=== PATIENT | male | born 1945 | race Caucasian/White ===

== ENCOUNTER 2018-02-09 16:29 | Emergency (ER) | payer OTHER ==
[2018-02-09] MEDS ORDERED: LIDOCAINE VISCOUS 2% SOLN 15 ML UDC ONE (16:50)
[2018-02-09] MEDS ORDERED: MAGNE/ALUM HYDROXD 30 ML UCUP ONE (16:50)
[2018-02-09 17:19] LABS: Absolute Lymphocytes (CBC) 0.9 K/uL (0.7-4.9); Absolute Monocytes 0.5 K/uL (0.1-1.3); Absolute Neutrophil 2.6 K/uL (1.8-8.0); Basophils % 0.9 % (0-1.3); Eosinophils % 2.5 % (0-4.4); Hematocrit 37.7 % (39.6-49.0); Lymphocytes % 21.3 % (15.3-44.8); MCV 99.9 fL (80-100); MPV 10.1 fL (7.6-11.3); Monocytes % 11.9 % (3.3-12.3); RBC Red Blood Cell Count 3.78 M/uL (4.33-5.43)
[2018-02-09 17:28] LABS: Bicarbonate 27 mEq/L (21-31); Glucose Level 108 mg/dL (65-120); Potassium 3.8 mEq/L (3.6-5.0); Sodium Level 133 mEq/L (135-145)
[2018-02-09 17:32] LABS: ALT/SGPT 18 IU/L (10-60); AST/SGOT 22 IU/L (10-42); Albumin 3.4 g/dL (3.2-5.5); Alkaline Phosphatase 67 IU/L (42-121); BUN Blood Urea Nitrogen 17 mg/dL (6-20); Bilirubin Total < 0.2 mg/dL (0.3-1.2); Magnesium 2.2 mg/dL (1.8-2.5); Protein, Total 7.9 g/dL (6.0-8.3)
[2018-02-09 17:35] LABS: Protime INR 1.34
--- NOTE | 2018-02-09 18:03 | RAD REPORT ---
EXAM DESCRIPTION: RAD - Chest Single View - 02/09/2018 5:33 pm CLINICAL HISTORY: Lower chest pain, epigastric pain COMPARISON: November 2015 TECHNIQUE: AP portable chest image was obtained 1713 hours . FINDINGS: Lungs are clear. Heart and vasculature are normal. No measurable pleural effusion and no p neumothorax. No gross bony abnormality seen. No acute aortic findings suspected. IMPRESSION: No acute cardiopulmonary process. No significant interval change.
--- NOTE | 2018-02-09 18:07 | RAD REPORT ---
EXAM DESCRIPTION: CT - Abdomen Pelvis W Contrast - 02/09/2018 5:50 pm CLINICAL HISTORY: Right upper quadrant pain, epigastric pain COMPARISON: None. TECHNIQUE: Biphasic, helical CT imaging of the abdomen and pelvis was performed following 100 ml non -ionic IV contrast. Oral contrast was given. All CT scans are performed using dose optimization technique as appropriate and may include automated exposure control or mA/KV adjustment according to patient size. FINDINGS: No suspicious findings in the lung bases. No pericardial thickening or effusion. The liver, spleen, and pancreas show no suspicious findings. Gallbladder and biliary tree are also wi thout suspicious finding. Symmetric renal function is seen with no hydronephrosis or suspicious renal mass. No pyelonephritis o r acute renal parenchymal process. Contracted urinary bladder shows no suspicious finding. Prostate g land and seminal vesicles within normal limits. No adrenal abnormality. No gastric dilatation or gastric wall thickening. Mild mucosal level gastritis can be present an occu lt on CT imaging. No dilated small bowel loops. Distal small bowel loops are fluid-filled with questi onable enhancement of the galvez. No appendicitis findings. Moderate stool volume in the colon. No acu te colon process. There is prominent diverticulosis in the sigmoid but no diverticulitis. No free air, free fluid or inflammatory stranding. Numerous mesenteric lymph nodes are present and there is congested or edematous appearance to the mesenteric fat. No mass or bulky lymphadenopathy. Small fat filled inguinal hernia present. Disc and bony degenerative changes are present. No pathologic bone process. IMPRESSION: Mesenteric adenitis or nonspecific enteritis pattern. No bulky lymphadenopathy. No evidence for acute gallbladder, biliary tree or pancreatic disease. Stomach is within normal limit s.
--- NOTE | 2018-02-09 18:30 | ER ---
Nurse's Notes [facility] Name: Michael Grant Age: 72 yrs Sex: Male : 1945 Arrival Date: 02/09/2018 Time: 16:32 Bed 24 Private MD: Dior Do H Diagnosis: Mesenteric Adenitis Presentation: 02/09 16:36 Presenting complaint: Patient states: Epigastric pain for 3 days that is intermittent aj in nature. Transition of care: patient was not received from another setting of care. Onset of symptoms was February 07, 2018. Risk Assessment: Do you want to hurt yourself or someone else? Patient reports no desire to harm self or others. Care prior to arrival: None. 16:36 Method Of Arrival: Ambulatory aj 16:36 Acuity: LEIF 3 aj 17:14 Initial Sepsis Screen: Does the patient meet any 2 criteria? No. Patient's initial kr2 sepsis screen is negative. Does the patient have a suspected source of infection? No. Patient's initial sepsis screen is negative. Triage Assessment: 16:37 General: Appears in no apparent distress. comfortable, Behavior is calm, cooperative, aj appropriate for age. Pain: Complains of pain in epigastric area. Neuro: Level of Consciousness is awake, alert, obeys commands, Oriented to person, place, time, situation, Appropriate for age. Cardiovascular: Reports chest pain, Capillary refill < 3 seconds in bilateral fingers Patient's skin is warm and dry. Respiratory: Airway is patent Respiratory effort is even, unlabored, Respiratory pattern is regular, symmetrical. GI: Reports upper abdominal pain, epigastric pain. Derm: Skin is intact, is healthy with good turgor, Skin is pink, warm \T\ dry. normal. Historical: - Allergies: 16:37 No Known Allergies; aj - Home Meds: 16:37 aspirin 81 mg Oral chew 1 tab once daily [Active]; Plavix 75 mg Oral tab 1 tab once aj daily [Active]; Pravachol 40 mg Oral tab 1 tab once daily [Active]; Prevacid 30 mg Oral cpDR 1 cap once daily [Active]; Singulair 10 mg Oral tab 1 tab once daily [Active]; - PMHx: 16:37 Diabetes - NIDDM; GERD; Headaches; High Cholesterol; Myocardial infarction; aj - PSHx: 16:37 EGD; Heart stents; aj - Immunization history:: Adult Immunizations up to date. - Social history:: Smoking status: Patient/guardian denies using tobacco. - Ebola Screening: : No symptoms or risks identified at this time. Screenin:14 Abuse screen: Denies threats or abuse. Denies injuries from another. Nutritional kr2 screening: No deficits noted. Tuberculosis screening: No symptoms or risk factors identified. Fall Risk None identified. Assessment: 17:15 Pain: Pain does not radiate. Pain began 1 month ago. kr2 17:15 General: Appears in no apparent distress. comfortable, well groomed, well developed, kr2 well nourished, Behavior is calm, cooperative, appropriate for age. Neuro: Level of Consciousness is awake, alert, obeys commands, Oriented to person, place, time, situation, Appropriate for age. Cardiovascular: Capillary refill < 3 seconds in bilateral fingers Patient's skin is warm and dry. Cardiovascular: Heart tones S1 S2 Rhythm is sinus rhythm. Cardiovascular: Chest pain is described as mild, quality is burning, pressure, is located in anterior epigastric area substernal area episodes are continuous is aggravated by lying flat is alleviated by position. Respiratory: Airway is patent Respiratory effort is even, unlabored, Respiratory pattern is regular, symmetrical. GI: Abdomen is round non-distended, Bowel sounds present X 4 quads. Reports epigastric pain, indigestion, nausea. : No signs and/or symptoms were reported regarding the genitourinary system. EENT: Nares are clear Oral mucosa is moist. Derm: Skin is intact, is healthy with good turgor, Skin is pink, warm \T\ dry. Musculoskeletal: Circulation, motion, and sensation intact. 18:22 Reassessment: Patient appears in no apparent distress at this time. Patient and/or kr2 family updated on plan of care and expected duration. Pain level reassessed. Patient is alert, oriented x 3, equal unlabored respirations, skin warm/dry/pink. Patient states feeling better. Patient states symptoms have improved. Vital Signs: 16:37 BP 126 / 77; Pulse 64; Resp 19; Temp 100.3; Pulse Ox 98% on R/A; Weight 81.65 kg; aj Height 5 ft. 10 in. (177.80 cm); 17:18 BP 113 / 75; Pulse 73; Resp 17; Pulse Ox 98% on R/A; kr2 18:23 BP 120 / 81; Pulse 59; Resp 17; Pulse Ox 99% on R/A; kr2 16:37 Body Mass Index 25.83 (81.65 kg, 177.80 cm) aj Vitals: 17:18 Cardiac Rhythm Assessment Sinus rhythm. kr2 ED Course: 16:32 Patient arrived in ED. mr 16:32 Dior Do DO is Private Physician. mr 16:33 Angelo Lackey MD is Attending Physician. ps1 16:36 Triage completed. aj 16:37 Arm band placed on left wrist. Patient placed in an exam room. aj 16:42 Florence Valdez, MIKE is Primary Nurse. kr2 17:00 Patient has correct armband on for positive identification. Bed in low position. Call kr2 light in reach. Side rails up X 1. air sampling and monitoring on. Pulse ox on. NIBP on. Door closed. Head of bed elevated. 17:00 Inserted saline lock: 20 gauge in right antecubital area, using aseptic technique. kr2 Blood collected. 17:13 Patient maintains SpO2 saturation greater than 95% on room air. kr2 17:21 Radiology exam delayed due to lab results not completed at this time. (BUN/Creatinine). cw1 17:22 X-ray completed. Portable x-ray completed in exam room. Patient tolerated procedure jw2 well. 17:23 XRAY Chest (1 view) In Process Unspecified. EDMS 17:49 CT completed. Patient moved to CT via wheelchair. Patient moved back from CT. cw1 17:50 CT Abd/Pelvis - W/Contrast In Process Unspecified. EDMS 18:29 Dior Do DO is Referral Physician. ps1 18:54 No provider procedures requiring assistance completed. IV discontinued, intact, kr2 bleeding controlled, No redness/swelling at site. Pressure dressing applied. Administered Medications: 17:05 Drug: GI Cocktail without - (Maalox Suspension 30 ml, Lidocaine Liquid 2 % 15 kr2 ml) Route: PO; 18:22 Follow up: Response: No adverse reaction kr2 Outcome: 18:29 Discharge ordered by . ps1 18:54 Discharged to home ambulatory, with family. kr2 18:54 Condition: good 18:54 Discharge instructions given to patient, family, Instructed on discharge instructions, follow up and referral plans. medication usage, Demonstrated understanding of instructions, follow-up care, medications, Prescriptions given X 1. 18:55 Patient left the ED. kr2 Signatures: Dispatcher [employer] EDMS Chloe West, RN RN Dinora Kaufman mr Crawford, Crystal cw1 Tania Kelly jw2 Floernce Valdez RN RN kr2 Angelo Lackey MD MD ps1 Corrections: (The following items were deleted from the chart) 19:09 18:26 Right Eye With Lenses, 20/30, Left Eye With Lenses, 20/15, Both Eyes With Lenses, kr2 20/10, When read with R eye, blurred. Read with both eyes slightly blurred kr2
--- NOTE | 2018-02-09 18:30 | EDPHYS ---
Physician Documentation [facility] Name: Michael Grant Age: 72 yrs Sex: Male : 1945 Arrival Date: 02/09/2018 Time: 16:32 Bed 24 Private MD: Dior Do H ED Physician Angelo Lackey HPI: 02/09 16:49 This 72 yrs old Male presents to ER via Ambulatory with complaints of Chest ps1 Pain, Abdominal Pain. 16:49 pt with a history of GERD adn gastric ulcers. States that he has had epigastric pain ps1 and RUQ pain. Course is intermittent and fluctuating. States that he has had anorexia for the last couple of days but felt hungry today. Had a hamburger and then started having epigastric pain. Pain rated as moderate and worse with eating. He had a EGD and was told that he had a gastric ulcer. He states that he is now asymptomatic since coming to the ED. . Historical: - Allergies: 16:37 No Known Allergies; aj - Home Meds: 16:37 aspirin 81 mg Oral chew 1 tab once daily [Active]; Plavix 75 mg Oral tab 1 tab once aj daily [Active]; Pravachol 40 mg Oral tab 1 tab once daily [Active]; Prevacid 30 mg Oral cpDR 1 cap once daily [Active]; Singulair 10 mg Oral tab 1 tab once daily [Active]; - PMHx: 16:37 Diabetes - NIDDM; GERD; Headaches; High Cholesterol; Myocardial infarction; aj - PSHx: 16:37 EGD; Heart stents; aj - Immunization history:: Adult Immunizations up to date. - Social history:: Smoking status: Patient/guardian denies using tobacco. - Ebola Screening: : No symptoms or risks identified at this time. ROS: 16:49 Constitutional: Negative for fever, chills, and weight loss, Eyes: Negative for injury, ps1 pain, redness, and discharge, ENT: Negative for injury, pain, and discharge, Cardiovascular: Negative for chest pain, palpitations, and edema, Respiratory: Negative for shortness of breath, cough, wheezing, and pleuritic chest pain. 16:49 Back: Negative for injury and pain, MS/Extremity: Negative for injury and deformity, Skin: Negative for injury, rash, and discoloration, Neuro: Negative for headache, weakness, numbness, tingling, and seizure. 16:49 Abdomen/GI: Positive for anorexia, epigastric pain. Exam: 16:49 Constitutional: This is a well developed, well nourished patient who is awake, alert, ps1 and in no acute distress. Head/Face: Normocephalic, atraumatic. Eyes: Pupils equal round and reactive to light, extra-ocular motions intact. Lids and lashes normal. Conjunctiva and sclera are non-icteric and not injected. Neck: Trachea midline, no thyromegaly or masses palpated, and no cervical lymphadenopathy. Supple, full range of motion without nuchal rigidity, or vertebral point tenderness. No Meningismus. Chest/axilla: Normal chest wall appearance and motion. Nontender with no deformity. No lesions are appreciated. Cardiovascular: Regular rate and rhythm. No gallops, murmurs, or rubs. Normal PMI, no JVD. No pulse deficits. Respiratory: Lungs have equal breath sounds bilaterally, clear to auscultation and percussion. No rales, rhonchi or wheezes noted. No increased work of breathing, no retractions or nasal flaring. Skin: Warm, dry with normal turgor. Normal color with no rashes, no lesions, and no evidence of cellulitis. MS/ Extremity: Pulses equal, no cyanosis. Neurovascular intact. Full, normal range of motion. 16:49 Abdomen/GI: Inspection: abdomen appears normal, Bowel sounds: normal, Palpation: mild abdominal tenderness, in the epigastric area and right upper quadrant. Vital Signs: 16:37 BP 126 / 77; Pulse 64; Resp 19; Temp 100.3; Pulse Ox 98% on R/A; Weight 81.65 kg; aj Height 5 ft. 10 in. (177.80 cm); 17:18 BP 113 / 75; Pulse 73; Resp 17; Pulse Ox 98% on R/A; kr2 18:23 BP 120 / 81; Pulse 59; Resp 17; Pulse Ox 99% on R/A; kr2 16:37 Body Mass Index 25.83 (81.65 kg, 177.80 cm) aj MDM: 16:49 Patient medically screened. ps1 16:54 Data reviewed: vital signs, nurses notes, lab test result(s), EKG, radiologic studies. ps1 ED course: labs and imaging c/w mesenteric adenitis. Neg troponin and EKG does not demonstrate acute changes. Home with NSAIDS. . 02/09 16:35 Order name: BNP; Complete Time: 18:12 ps1 02/09 16:35 Order name: CBC with Diff; Complete Time: 17:35 ps1 02/09 16:35 Order name: Magnesium; Complete Time: 17:35 ps1 02/09 16:35 Order name: PT-INR; Complete Time: 18:12 ps1 02/09 16:35 Order name: Ptt, Activated; Complete Time: 18:12 ps1 02/09 16:35 Order name: Troponin (emerg Dept Use Only); Complete Time: 18:12 ps1 02/09 16:35 Order name: XRAY Chest (1 view); Complete Time: 18:12 ps1 02/09 16:35 Order name: EKG; Complete Time: 16:35 ps1 02/09 16:35 Order name: Cardiac monitoring; Complete Time: 17:12 ps1 02/09 16:35 Order name: EKG - Nurse/Tech; Complete Time: 17:12 ps1 02/09 16:35 Order name: CMP; Complete Time: 17:35 ps1 02/09 16:57 Order name: CT Abd/Pelvis - W/Contrast; Complete Time: 18:12 ps1 02/09 16:35 Order name: IV Saline Lock; Complete Time: 17:12 ps1 02/09 16:35 Order name: Labs collected and sent; Complete Time: 17:12 ps1 02/09 16:35 Order name: O2 Per Protocol; Complete Time: 17:12 ps1 02/09 16:35 Order name: O2 Sat Monitoring; Complete Time: 17:12 ps1 EC:54 Rate is 57 beats/min. Rhythm is regular. QRS [place] is Normal. [place] interval is normal. QRS ps1 interval is normal. QT interval is normal. No Q waves. T waves are Normal. Clinical impression: LAFB, sinus bradycardia. . Interpreted by me. Administered Medications: 17:05 Drug: GI Cocktail without - (Maalox Suspension 30 ml, Lidocaine Liquid 2 % 15 kr2 ml) Route: PO; 18:22 Follow up: Response: No adverse reaction kr2 Disposition: 02/09/18 18:29 Discharged to Home. Impression: Mesenteric Adenitis. - Condition is Stable. - Discharge Instructions: Lymphadenopathy. - Prescriptions for Medrol (Grady) 4 mg Oral Tablets, Dose Pack - take 1 tablet by ORAL route as directed - follow package instructions; 1 packet. - Medication Reconciliation Form, Thank You Letter, Antibiotic Education, Prescription Opioid Use form. - Follow up: Dior Do DO; When: As needed; Reason: Recheck today's complaints, Continuance of care, Re-evaluation by your physician. Follow up: Emergency Department; When: As needed; Reason: If symptoms return, Trouble breathing, Worsening of condition. - Problem is an ongoing problem. - Symptoms have improved. Signatures: Dispatcher [employer] EDMS Chloe West RN RN aj Florence Valdez RN RN kr2 Angelo Lackey MD MD ps1 Corrections: (The following items were deleted from the chart) 18:54 16:35 Urine Dipstick-Ancillary ordered. ps1 kr2 18:55 18:29 02/09/2018 18:29 Discharged to Home. Impression: Mesenteric Adenitis. Condition kr2 is Stable. Forms are Medication Reconciliation Form, Thank You Letter, Antibiotic Education, Prescription Opioid Use. Follow up: Dior Do; When: As needed; Reason: Recheck today's complaints, Continuance of care, Re-evaluation by your physician. Follow up: Emergency Department; When: As needed; Reason: If symptoms return, Trouble breathing, Worsening of condition. Problem is an ongoing problem. Symptoms have improved. ps1
[2018-02-09 19:00] VITALS: TEMP 100.3
[2018-02-09 19:02] VITALS: BP 120/81; O2SAT 99
--- NOTE | 2018-02-10 12:46 | EKG ---
Test Date: 2018-02-09 Test Time: 16:54:48 [employer] Specialist: SCOT MEASUREMENT RESULTS: Intervals: Rate: 57 MI: 140 QRSD: 104 QT: 432 QTc: 420 [place]: P: 31 MI: 140 QRS: -67 T: 63 INTERPRETIVE STATEMENTS: Sinus bradycardia Left anterior fascicular block Cannot rule out Anterior infarct, age undetermined Abnormal ECG Compared to ECG 11/30/2015 02:12:58 Myocardial infarct finding now present Electronically Signed On 02-10-18 12:43:44 CDT by Vasquez Keating
== END 2018-02-09 18:55 | disposition home or self-care (01) ==
LOC: ER 16:29
DX: I88.0 Nonspecific mesenteric lymphadenitis (principal); K21.9 Gastro-esophageal reflux disease without esophagitis; E11.9 Type 2 diabetes mellitus without complications; E78.00 Pure hypercholesterolemia, unspecified; Z95.818 Presence of other cardiac implants and grafts; Z79.01 Long term (current) use of anticoagulants; Z79.82 Long term (current) use of aspirin
CPT/HCPCS: 36415; 71045; 74177; 80053; 83735; 83880; 84484; 85025; 85610; 85730; 93005; 99285; Q9967

== ENCOUNTER 2018-10-24 15:42 | Emergency (ER) | payer OTHER ==
--- NOTE | 2018-10-24 18:57 | RAD REPORT ---
EXAM DESCRIPTION: CT - Head Brain Wo Cont - 10/24/2018 6:35 pm CLINICAL HISTORY: Headache for 4 days COMPARISON: None. TECHNIQUE: Axial 5 mm thick images of the head were obtained without IV contrast. All CT scans are performed using dose optimization technique as appropriate and may include automated exposure control or mA/KV adjustment according to patient size. FINDINGS: No intracranial hemorrhage, mass, edema or shift of mid-line structures. No acute cortical based infarction. Underlying atrophy and chronic ischemic changes are present. No abnormal extra-axi al fluid collections. Ventricles are in proportion to volume loss. Arterial tree calcifications are p resent. Mastoid air cells and visualized portions of the paranasal sinuses are clear. No acute bony findings. IMPRESSION: Atrophy and chronic ischemic change with no acute intracranial finding.
[2018-10-24 19:17] LABS: Absolute Lymphocytes (CBC) 1.4 K/uL (0.7-4.9); Absolute Monocytes 0.4 K/uL (0.1-1.3); Absolute Neutrophil 4.1 K/uL (1.8-8.0); Basophils % 0.6 % (0-1.3); Eosinophils % 1.3 % (0-4.4); Hematocrit 35.5 % (39.6-49.0); Lymphocytes % 22.6 % (15.3-44.8); MPV 9.7 fL (7.6-11.3); Monocytes % 7.3 % (3.3-12.3); Potassium 4.5 mmol/L (3.5-5.1); RBC Red Blood Cell Count 3.41 M/uL (4.33-5.43)
[2018-10-24] MEDS ORDERED: ACETAMINOPHEN 325 MG TABLET ONE (20:22)
--- NOTE | 2018-10-24 20:40 | ER ---
Nurse's Notes [facility] Name: Michael Grant Age: 73 yrs Sex: Male : 1945 Arrival Date: 10/24/2018 Time: 15:45 Bed 30 Private MD: Dior Do H Diagnosis: Headache Presentation: 10/24 15:51 Presenting complaint: Patient states: had a tooth extracted on Saturday and has had sv headaches before the extraction but now the headache is worse than normal, throbbing. Reports headache first started in the occipital region and now has top of head and left parietal area. Transition of care: patient was not received from another setting of care. Onset of symptoms was October 2018. Care prior to arrival: None. 15:51 Method Of Arrival: Ambulatory sv 15:51 Acuity: LEIF 3 sv 18:08 Risk Assessment: Do you want to hurt yourself or someone else? Patient reports no mg2 desire to harm self or others. Initial Sepsis Screen: Does the patient meet any 2 criteria? No. Patient's initial sepsis screen is negative. Does the patient have a suspected source of infection? No. Patient's initial sepsis screen is negative. Triage Assessment: 15:56 Headache History: The patient has had previous headaches and this one is more severe sv than previous episodes. General: Appears in no apparent distress. uncomfortable, Behavior is calm, cooperative, appropriate for age. Pain: Complains of pain in top of head, left parietal area, right parietal area, occipital area and base of the skull Pain currently is 5 out of 10 on a pain scale. Neuro: Level of Consciousness is awake, alert, obeys commands, Oriented to person, place, time, situation, Gait is steady. Respiratory: Respiratory effort is even, unlabored, Respiratory pattern is regular, symmetrical. Derm: Skin is pink, warm \T\ dry. 18:57 Pain: Also complains of no other associated symptoms. mg2 Historical: - Allergies: 15:52 No Known Allergies; sv - Home Meds: 18:11 aspirin 81 mg Oral chew 1 tab once daily [Active]; Plavix 75 mg Oral tab 1 tab once mg2 daily [Active]; Pravachol 40 mg Oral tab 1 tab once daily [Active]; Prevacid 30 mg Oral cpDR 1 cap once daily [Active]; Singulair 10 mg Oral tab 1 tab once daily [Active]; - PMHx: 15:52 Diabetes - NIDDM; GERD; Headaches; High Cholesterol; Myocardial infarction; Rheumatoid sv Arthritis; - PSHx: 15:52 EGD; Heart stents; sv - Immunization history:: Flu vaccine status is unknown. - Social history:: Smoking status: unknown. - Ebola Screening: : No symptoms or risks identified at this time. Screenin:06 Abuse screen: Denies threats or abuse. Denies injuries from another. Nutritional mg2 screening: No deficits noted. Tuberculosis screening: No symptoms or risk factors identified. Fall Risk None identified. Assessment: 18:07 General: Appears in no apparent distress. comfortable, Behavior is calm, cooperative. mg2 Pain: Complains of pain in head Pain does not radiate. Pain currently is 5 out of 10 on a pain scale. Quality of pain is described as aching, Pain began gradually, 2-3 days ago. Is intermittent, Alleviated by medications. Neuro: Level of Consciousness is awake, alert, obeys commands, Oriented to person, place, time, situation, Reports headache. Cardiovascular: Capillary refill < 3 seconds Patient's skin is warm and dry. Respiratory: Airway is patent Respiratory effort is even, unlabored, Respiratory pattern is regular, symmetrical. GI: No signs and/or symptoms were reported involving the gastrointestinal system. : No signs and/or symptoms were reported regarding the genitourinary system. EENT: No signs and/or symptoms were reported regarding the EENT system. Derm: Skin is intact, is healthy with good turgor, Skin is pink, warm \T\ dry. normal. Musculoskeletal: Circulation, motion, and sensation intact. Capillary refill < 3 seconds. 19:18 Reassessment: Patient appears in no apparent distress at this time. Patient and/or mg2 family updated on plan of care and expected duration. Pain level reassessed. Patient is alert, oriented x 3, equal unlabored respirations, skin warm/dry/pink. Vital Signs: 15:52 BP 131 / 82; Pulse 59; Resp 18; Temp 97.6; Pulse Ox 100% ; Weight 79.38 kg; Height 5 sv ft. 10 in. (177.80 cm); Pain 5/10; 18:12 BP 123 / 77; Resp 18; Pain 5/10; mg2 21:03 BP 130 / 78; Pulse 70; Resp 18; Pulse Ox 100% on R/A; Pain 0/10; mg2 15:52 Body Mass Index 25.11 (79.38 kg, 177.80 cm) sv ED Course: 15:45 Patient arrived in ED. sb2 15:45 Dior Do DO is Private Physician. sb2 15:52 Triage completed. sv 15:55 Arm band placed on Patient placed in waiting room, Patient notified of wait time. sv 17:56 Stalin Noland, RN is Primary Nurse. mg2 18:07 No provider procedures requiring assistance completed. mg2 18:09 Patient has correct armband on for positive identification. Bed in low position. NIBP mg2 on. Door closed. 18:11 Kevin Hu PA is PHCP. [facility] 18:11 Merrill Fine MD is Attending Physician. jmm 18:35 CT Head Brain wo Cont In Process Unspecified. EDMS 18:57 Inserted saline lock: 20 gauge in right antecubital area, using aseptic technique. mg2 Blood collected. 20:39 Jose Martin Galarza MD is Referral Physician. jmm 21:03 IV discontinued, intact, bleeding controlled, No redness/swelling at site. Pressure mg2 dressing applied. Administered Medications: 20:19 Drug: Tylenol 650 mg Route: PO; mg2 21:03 Follow up: Response: No adverse reaction; Marked relief of symptoms mg2 Outcome: 20:39 Discharge ordered by . [facility] 21:04 Discharged to home ambulatory, with family. mg2 21:04 Condition: stable 21:04 Discharge instructions given to patient, family, Instructed on discharge instructions, follow up and referral plans. medication usage, Demonstrated understanding of instructions, follow-up care, medications, Prescriptions given X 1. 21:04 Patient left the ED. mg2 Signatures: Dispatcher [employer] EDMS Kenyatta Borges RN RN Kevin Hu PA PA Cande Swift sb2 Stalin Noland RN RN mg2 Corrections: (The following items were deleted from the chart) 15:55 15:51 Presenting complaint: Patient states: had a tooth extracted on Saturday and has sv had headaches before the extraction but now the headache is worse than normal, throbbing. sv 15:55 15:52 Pulse 59bpm; Resp 18bpm; Pulse Ox 100%; Temp 97.6F; 79.38 kg; Height 5 ft. 10 sv in.; BMI: 25.1; Pain 5/10; sv
--- NOTE | 2018-10-24 20:40 | EDPHYS ---
Physician Documentation [facility] Name: Michael Grant Age: 73 yrs Sex: Male : 1945 Arrival Date: 10/24/2018 Time: 15:45 Bed 30 Private MD: Dior Do H ED Physician Merrill Fine HPI: 10/24 18:18 This 73 yrs old Male presents to ER via Ambulatory with complaints of jmm Headache > 24hrs Old. 18:18 The patient complains of pain to the left side of the back of head, left occipital jmm area, left base of the skull, right side of the back of head, right occipital area and right base of the skull. The patient describes the headache as aching. Onset: The symptoms/episode began/occurred gradually, 4 day(s) ago. Associated signs and symptoms: Pertinent negatives: fever, paresthesias, Photophobia. This is a 73 year old male with a history of dm, htn, RA, that presents to the ED with complaints of headache beginning approx 4 days ago. Headache gradually intensified but has yet to resolve. Symptoms are no alleviated with home medication. Denies fever. . Historical: - Allergies: 15:52 No Known Allergies; sv - Home Meds: 18:11 aspirin 81 mg Oral chew 1 tab once daily [Active]; Plavix 75 mg Oral tab 1 tab once mg2 daily [Active]; Pravachol 40 mg Oral tab 1 tab once daily [Active]; Prevacid 30 mg Oral cpDR 1 cap once daily [Active]; Singulair 10 mg Oral tab 1 tab once daily [Active]; - PMHx: 15:52 Diabetes - NIDDM; GERD; Headaches; High Cholesterol; Myocardial infarction; Rheumatoid sv Arthritis; - PSHx: 15:52 EGD; Heart stents; sv - Immunization history:: Flu vaccine status is unknown. - Social history:: Smoking status: unknown. - Ebola Screening: : No symptoms or risks identified at this time. ROS: 18:18 Constitutional: Negative for fever, chills, and weight loss, Cardiovascular: Negative jmm for chest pain, palpitations, and edema, Respiratory: Negative for shortness of breath, cough, wheezing, and pleuritic chest pain. 18:18 Neuro: Positive for headache. 18:18 All other systems are negative. Exam: 18:18 Head/Face: atraumatic. [facility] 18:18 Neck: Trachea midline, Supple Chest/axilla: Normal chest wall appearance and motion. Cardiovascular: Regular rate and rhythm. No edema appreciated Respiratory: Normal respirations, no respiratory distress appreciated Abdomen/GI: Non distended, soft Back: Normal ROM Skin: General appearance color normal MS/ Extremity: Moves all extremities, no obvious deformities appreciated, no edema noted to the lower extremities Neuro: Awake and alert, normal gait Psych: Behavior is normal, Mood is normal, Patient is cooperative and pleasant 18:18 Constitutional: The patient appears in no acute distress, alert, awake. 18:18 Neuro: Gait: is steady. 18:18 Psych: Behavior/mood is pleasant, cooperative. Vital Signs: 15:52 BP 131 / 82; Pulse 59; Resp 18; Temp 97.6; Pulse Ox 100% ; Weight 79.38 kg; Height 5 sv ft. 10 in. (177.80 cm); Pain 5/10; 18:12 BP 123 / 77; Resp 18; Pain 5/10; mg2 21:03 BP 130 / 78; Pulse 70; Resp 18; Pulse Ox 100% on R/A; Pain 0/10; mg2 15:52 Body Mass Index 25.11 (79.38 kg, 177.80 cm) sv MDM: 18:18 Patient medically screened. christopher 20:39 Data reviewed: vital signs, nurses notes, lab test result(s), radiologic studies, CT [facility] scan. Counseling: I had a detailed discussion with the patient and/or guardian regarding: the historical points, exam findings, and any diagnostic results supporting the discharge/admit diagnosis, lab results, the need for outpatient follow up, to return to the emergency department if symptoms worsen or persist or if there are any questions or concerns that arise at home. ED course: No focal neuro deficits are appreciate. Character of the headache does not appear consistent with SAH or meningitis. CT negative. Patient is advised to follow up with Neuro and given strict return precautions. Patient understood and agrees with the plan of care. . 10/24 18:23 Order name: CBC with Diff; Complete Time: 19:21 [facility] 10/24 18:23 Order name: BMP; Complete Time: 19:21 [facility] 10/24 18:23 Order name: Saline Lock; Complete Time: 18:57 [facility] 10/24 18:23 Order name: CT Head Brain wo Cont; Complete Time: 19:07 [facility] Administered Medications: 20:19 Drug: Tylenol 650 mg Route: PO; mg2 21:03 Follow up: Response: No adverse reaction; Marked relief of symptoms mg2 Disposition: 10/24/18 20:39 Discharged to Home. Impression: Headache. - Condition is Stable. - Discharge Instructions: General Headache Without Cause. - Prescriptions for Valium 2 mg Oral Tablet - take 1 tablet by ORAL route Every night As needed; 20 tablet. - Medication Reconciliation Form, Thank You Letter, Antibiotic Education, Prescription Opioid Use form. - Follow up: Jose Martin Galarza MD; When: 2 - 3 days; Reason: Recheck today's complaints, Continuance of care, Re-evaluation by your physician. - Notes: Take with 1000 mg of tylenol. Please return to the ED if your symptoms worsen. Addendum: 10/27/2018 09:09 Co-signature as Attending Physician, Merrill Fine MD I agree with the assessment and c moore plan of care. Signatures: Dispatcher [employer] EDKenyatta Rollins, RN RN Merrill Fine MD MD cha Mickail, Joel, PA PA [facility] Stalin Noland RN RN mg2 Corrections: (The following items were deleted from the chart) 10/24 21:04 20:39 10/24/2018 20:39 Discharged to Home. Impression: Headache. Condition is Stable. mg2 Forms are Medication Reconciliation Form, Thank You Letter, Antibiotic Education, Prescription Opioid Use. Follow up: Jose Martin Galarza; When: 2 - 3 days; Reason: Recheck today's complaints, Continuance of care, Re-evaluation by your physician. ji
[2018-10-24 22:13] VITALS: TEMP 97.6; O2SAT 100
[2018-10-24 22:16] VITALS: BP 130/78
== END 2018-10-24 21:04 | disposition home or self-care (01) ==
LOC: ER 15:42
DX: R51 Headache (principal); E11.9 Type 2 diabetes mellitus without complications; E78.00 Pure hypercholesterolemia, unspecified; I25.2 Old myocardial infarction; Z79.01 Long term (current) use of anticoagulants; Z79.82 Long term (current) use of aspirin; Z95.818 Presence of other cardiac implants and grafts
CPT/HCPCS: 36415; 70450; 80048; 85025; 99284

== ENCOUNTER 2018-11-26 14:39 | Emergency (ER) | payer OTHER ==
[2018-11-26] MEDS ORDERED: NA CHLORIDE 0.9% 1,000 ML ONE (17:15)
[2018-11-26 17:20] LABS: Absolute Lymphocytes (CBC) 1.4 K/uL (0.7-4.9); Absolute Monocytes 0.7 K/uL (0.1-1.3); Absolute Neutrophil 4.1 K/uL (1.8-8.0); Basophils % 0.5 % (0-1.3); Eosinophils % 1.1 % (0-4.4); Hematocrit 33.1 % (39.6-49.0); Lymphocytes % 22.6 % (15.3-44.8); MPV 9.1 fL (7.6-11.3); Monocytes % 10.8 % (3.3-12.3)
[2018-11-26 17:25] LABS: Protime INR 1.31
[2018-11-26 17:47] LABS: ALT/SGPT 16 U/L (12-78); AST/SGOT 9 U/L (15-37); Alkaline Phosphatase 76 U/L (45-117); BUN Blood Urea Nitrogen 16 mg/dL (7-18); Bicarbonate 28 mmol/L (21-32); Bilirubin Direct 0.1 mg/dL (0-0.2); Bilirubin Total 0.2 mg/dL (0.2-1.0); Glucose Level 99 mg/dL (74-106); Lipase 102 U/L (73-393); Magnesium 2.3 mg/dL (1.8-2.4); NT PRO-BNP 79 pg/mL (<125); Potassium 3.8 mmol/L (3.5-5.1); Protein, Total 7.6 g/dL (6.4-8.2); Sodium Level 136 mmol/L (136-145); Troponin (Emerg Dept Use Only) < 0.02 ng/mL (0.0-0.045)
[2018-11-26 17:49] LABS: Urine Blood 1+ (NEG); Urine Glucose NEGATIVE (NEG); Urine Protein TRACE (NEG); Urine Specific Gravity 1.025 (1.005-1.030); Urine pH 5.5 (5.0-7.0)
--- NOTE | 2018-11-26 18:24 | RAD REPORT ---
EXAM DESCRIPTION: RAD - Chest Single View - 11/26/2018 6:16 pm CLINICAL HISTORY: Cough COMPARISON: January 2018 TECHNIQUE: AP portable chest image was obtained 1726 hours . FINDINGS: Lungs are clear. Heart and vasculature are normal. No measurable pleural effusion and no p neumothorax. No acute bony abnormality seen. No acute aortic findings suspected. IMPRESSION: No acute cardiopulmonary process. No significant interval change.
--- NOTE | 2018-11-26 19:40 | RAD REPORT ---
EXAM DESCRIPTION: - CP - 11/26/2018 7:18 pm CLINICAL HISTORY: Weakness, dizziness, syncope COMPARISON: None. TECHNIQUE: Real-time sonographic evaluation of both carotid systems was performed. Nieves scale and Do ppler interrogation were performed with waveform tracing bilaterally. FINDINGS: Normal high resistance waveforms are noted in both external carotid arteries. The common c arotid arteries and internal carotid arteries show normal low resistance waveforms. Mild plaquing changes are present in each carotid bulb. No significant luminal narrowing on visual in spection. Peak systolic and end diastolic velocity values and the ICA/CCA ratios are in the non-hemod ynamically significant range. Antegrade flow seen in both vertebral arteries. Velocity values and ratios were recorded and are retained in the patient's imaging records. IMPRESSION: Mild bilateral carotid bulb plaquing changes. No evidence of a hemodynamically significant stenosis.
--- NOTE | 2018-11-26 19:43 | RAD REPORT ---
EXAM DESCRIPTION: MRI - Brain Wo Cont - 11/26/2018 7:33 pm CLINICAL HISTORY: Weakness, dizziness, syncope, severe headache COMPARISON: None. TECHNIQUE: Sagittal T1-weighted images were obtained along with axial PD, heavily T2-weighted and T2 -FLAIR images. Axial DWI and ADC mapping sequences were also obtained along with coronal heavily T2-w eighted images. FINDINGS: No intracranial hemorrhage, mass or acute infarction. There is no edema or shift of midlin e structures. No extra-axial fluid collections. Nieves-matter/white matter junction is preserved. Signa l voids are seen as a normal finding in the major intracranial vessels. Chronic ischemic changes are very minimal on MR imaging. Atrophy changes are present with ventricles in proportion to the amount o f volume loss. No sella or supra sella abnormality. No tonsillar ectopia. No globe or orbital content acute finding. No acute mastoid air cell finding. Mucosal thickening changes are present in the left maxillary sinus with small air-fluid level present. IMPRESSION: No infarction or acute intracranial finding. Atrophy changes are present with no measura ble chronic ischemic change by MR criteria. Minimal mucosal thickening in the paranasal sinuses with a small air-fluid left maxillary sinus.
--- NOTE | 2018-11-26 19:56 | EDPHYS ---
Physician Documentation [facility] Name: Michael Grant Age: 73 yrs Sex: Male : 1945 Arrival Date: 11/26/2018 Time: 14:40 Bed 24 Private MD: Dior Do H ED Physician Merrill Fine HPI: 11/26 16:53 This 73 yrs old Male presents to ER via Ambulatory with complaints of christopher Dizziness, Elevated Heart Rate. 16:53 The patient presents with dizziness, generalized weakness. Onset: The symptoms/episode christopher began/occurred 3 day(s) ago. Context: occurred at an unknown location. Modifying factors: The symptoms are alleviated by lying down, the symptoms are aggravated by standing up. Associated signs and symptoms: The patient has no apparent associated signs or symptoms. Severity of symptoms: At their worst the symptoms were mild in the emergency department the symptoms are unchanged. Patient's baseline: Neuro: alert and fully oriented. The patient has not experienced similar symptoms in the past. Historical: - Allergies: 14:56 No Known Allergies; sg - Home Meds: 14:55 Singulair 10 mg Oral tab 1 tab once daily [Active]; aspirin 81 mg Oral chew 1 tab once sg daily [Active]; Plavix 75 mg Oral tab 1 tab once daily [Active]; Pravachol 40 mg Oral tab 1 tab once daily [Active]; Prevacid 30 mg Oral cpDR 1 cap once daily [Active]; - PMHx: 14:55 Diabetes - NIDDM; GERD; Headaches; High Cholesterol; Myocardial infarction; Rheumatoid sg Arthritis; - PSHx: 14:55 EGD; Heart stents; sg - Immunization history:: Adult Immunizations. - Social history:: Smoking status: Patient/guardian denies using tobacco. - Ebola Screening: : Patient negative for fever greater than or equal to 101.5 degrees Fahrenheit, and additional compatible Ebola Virus Disease symptoms Patient denies exposure to infectious person Patient denies travel to an Ebola-affected area in the 21 days before illness onset No symptoms or risks identified at this time. - Family history:: not pertinent. ROS: 16:53 Constitutional: Negative for fever, chills, and weight loss, Eyes: Negative for injury, christopher pain, redness, and discharge, ENT: Negative for injury, pain, and discharge, Neck: Negative for injury, pain, and swelling, Cardiovascular: Negative for chest pain, palpitations, and edema, Respiratory: Negative for shortness of breath, cough, wheezing, and pleuritic chest pain, Abdomen/GI: Negative for abdominal pain, nausea, vomiting, diarrhea, and constipation, Back: Negative for injury and pain, : Negative for injury, bleeding, discharge, and swelling, MS/Extremity: Negative for injury and deformity, Skin: Negative for injury, rash, and discoloration, Psych: Negative for depression, anxiety, suicide ideation, homicidal ideation, and hallucinations, Allergy/Immunology: Negative for hives, rash, and allergies, Endocrine: Negative for neck swelling, polydipsia, polyuria, polyphagia, and marked weight changes, Hematologic/Lymphatic: Negative for swollen nodes, abnormal bleeding, and unusual bruising. 16:53 Neuro: Positive for dizziness. Exam: 16:53 Constitutional: This is a well developed, well nourished patient who is awake, alert, christopher and in no acute distress. Head/Face: Normocephalic, atraumatic. Eyes: Pupils equal round and reactive to light, extra-ocular motions intact. Lids and lashes normal. Conjunctiva and sclera are non-icteric and not injected. Cornea within normal limits. Periorbital areas with no swelling, redness, or edema. ENT: Nares patent. No nasal discharge, no septal abnormalities noted. Tympanic membranes are normal and external auditory canals are clear. Oropharynx with no redness, swelling, or masses, exudates, or evidence of obstruction, uvula midline. Mucous membranes moist. Neck: Trachea midline, no thyromegaly or masses palpated, and no cervical lymphadenopathy. Supple, full range of motion without nuchal rigidity, or vertebral point tenderness. No Meningismus. Chest/axilla: Normal chest wall appearance and motion. Nontender with no deformity. No lesions are appreciated. Cardiovascular: Regular rate and rhythm with a normal S1 and S2. No gallops, murmurs, or rubs. Normal PMI, no JVD. No pulse deficits. Respiratory: Lungs have equal breath sounds bilaterally, clear to auscultation and percussion. No rales, rhonchi or wheezes noted. No increased work of breathing, no retractions or nasal flaring. Abdomen/GI: Soft, non-tender, with normal bowel sounds. No distension or tympany. No guarding or rebound. No evidence of tenderness throughout. Back: No spinal tenderness. No costovertebral tenderness. Full range of motion. Male : Normal genitalia with no discharge or lesions. Skin: Warm, dry with normal turgor. Normal color with no rashes, no lesions, and no evidence of cellulitis. MS/ Extremity: Pulses equal, no cyanosis. Neurovascular intact. Full, normal range of motion. Neuro: Awake and alert, GCS 15, oriented to person, place, time, and situation. Cranial nerves II-XII grossly intact. Motor strength 5/5 in all extremities. Sensory grossly intact. Cerebellar exam normal. Normal gait. Psych: Awake, alert, with orientation to person, place and time. Behavior, mood, and affect are within normal limits. Vital Signs: 14:53 BP 110 / 76; Pulse 80; Resp 17; Temp 98.3; Pulse Ox 100% on R/A; Weight 79.38 kg (R); sg Height 5 ft. 10 in. (177.80 cm); Pain 0/10; 16:10 BP 136 / 81; Pulse 69; Resp 19; Pulse Ox 98% on R/A; ca1 17:25 BP 133 / 79; Pulse 64; Resp 19; Pulse Ox 100% ; ca1 18:30 BP 113 / 66; Pulse 60; Resp 19; Pulse Ox 100% on R/A; ca1 19:35 BP 115 / 64; Pulse 71; Resp 19; Pulse Ox 100% on R/A; ca1 14:53 Body Mass Index 25.11 (79.38 kg, 177.80 cm) MDM: 16:24 Patient medically screened. [facility] 16:55 Data reviewed: vital signs, nurses notes, lab test result(s), EKG, radiologic studies, [facility] MRI, plain films. 11/26 16:53 Order name: Basic Metabolic Panel; Complete Time: 18:14 [facility] 11/26 16:53 Order name: CBC with Diff; Complete Time: 17:33 [facility] 11/26 16:53 Order name: LFT's; Complete Time: 18:14 [facility] 11/26 16:53 Order name: Magnesium; Complete Time: 18:14 [facility] 11/26 16:53 Order name: NT PRO-BNP; Complete Time: 18:14 [facility] 11/26 16:53 Order name: PT-INR; Complete Time: 18:14 christopher 11/26 16:53 Order name: Troponin (emerg Dept Use Only); Complete Time: 18:14 christopher 11/26 16:53 Order name: XRAY Chest (1 view); Complete Time: 19:03 christopher 11/26 16:53 Order name: Lipase; Complete Time: 18:14 christopher 11/26 16:53 Order name: US Carotid Artery Bilateral; Complete Time: 19:44 christopher 11/26 16:53 Order name: Urine Culture 11/26 17:28 Order name: Urine Dipstick--Ancillary (enter results); Complete Time: 18:14 bd 11/26 18:21 Order name: Brain Wo Cont; Complete Time: 19:44 EDMS 11/26 16:53 Order name: EKG; Complete Time: 16:54 [facility] 11/26 16:53 Order name: Cardiac monitoring; Complete Time: 17:15 [facility] 11/26 16:53 Order name: EKG - Nurse/Tech; Complete Time: 17:15 [facility] 11/26 16:53 Order name: IV Saline Lock; Complete Time: 17:15 [facility] 11/26 16:53 Order name: Labs collected and sent; Complete Time: 17:15 [facility] 11/26 16:53 Order name: O2 Per Protocol; Complete Time: 17:15 [facility] 11/26 16:53 Order name: O2 Sat Monitoring; Complete Time: 17:15 [facility] 11/26 16:53 Order name: Urine Dipstick-Ancillary (obtain specimen); Complete Time: 17:25 [facility] Administered Medications: 17:14 Drug: NS 0.9% 1000 ml Route: IV; Rate: 1 bolus; Site: right antecubital; mg2 19:00 Follow up: IV Status: Completed infusion ca1 17:14 Drug: foLIC Acid 1 mg Route: IVPB; Site: right antecubital; mg2 19:00 Follow up: Response: No adverse reaction; IV Status: Completed infusion ca1 Disposition: 11/26/18 19:55 Discharged to Home. Impression: Dizziness and giddiness, Type 2 diabetes mellitus. - Condition is Stable. - Discharge Instructions: Type 2 Diabetes Mellitus, Diagnosis, Adult, Dizziness, Vertigo, Aspirin and Your Heart, Type 2 Diabetes Mellitus, Diagnosis, Adult, [id number], Dizziness, [id number]. - Prescriptions for Meclizine 25 mg Oral Tablet - take 1 tablet by ORAL route every 8 hours As needed; 30 tablet. - Medication Reconciliation Form, Thank You Letter, Antibiotic Education, Prescription Opioid Use form. - Follow up: AileenSandyMelvin Do; When: 2 - 3 days; Reason: Recheck today's complaints, Continuance of care, Re-evaluation by your physician. - Problem is new. - Symptoms have improved. Signatures: Dispatcher [employer] EDND Jose Macias, RN RN Merrill Ludwig MD MD cha Mickail, Joel, PA PA [place] Stalin Noland, MIKE RN mg2 Madison Strauss RN ca1 Corrections: (The following items were deleted from the chart) 18:21 16:54 MR STROKE PROTOCOL+MRI.RAD.BRZ ordered. [facility] 20:17 19:55 11/26/2018 19:55 Discharged to Home. Impression: Dizziness and giddiness; Type 2 mg2 diabetes mellitus. Condition is Stable. Discharge Instructions: Type 2 Diabetes Mellitus, Diagnosis, Adult, Dizziness, Vertigo, Aspirin and Your Heart, Type 2 Diabetes Mellitus, Diagnosis, Adult, [id number], Dizziness, [id number]. Prescriptions for Meclizine 25 mg Oral Tablet - take 1 tablet by ORAL route every 8 hours As needed; 30 tablet. and Forms are Medication Reconciliation Form, Thank You Letter, Antibiotic Education, Prescription Opioid Use. Follow up: AileenSandyMelvinalba Erici; When: 2 - 3 days; Reason: Recheck today's complaints, Continuance of care, Re-evaluation by your physician. Problem is new. Symptoms have improved. [place]
--- NOTE | 2018-11-26 19:56 | ER ---
Nurse's Notes [facility] Name: Michael Grant Age: 73 yrs Sex: Male : 1945 Arrival Date: 11/26/2018 Time: 14:40 Bed 24 Private MD: Dior Do H Diagnosis: Dizziness and giddiness;Type 2 diabetes mellitus Presentation: 11/26 14:53 Presenting complaint: Patient states: Had a tooth infection several weeks ago that got sg worse and was moved up into my sinus cavity and caused some inner ear problems so Rufina been dizzy ever since that happened, but I had stents placed back in 2013 and 2004 and my HR has always been about 40-50, Today i can feel it beating faster and Im kind of concerned something might be wrong. Transition of care: patient was not received from another setting of care. Onset of symptoms was November 26, 2018. Risk Assessment: Do you want to hurt yourself or someone else? Patient reports no desire to harm self or others. Initial Sepsis Screen: Does the patient meet any 2 criteria? No. Patient's initial sepsis screen is negative. Does the patient have a suspected source of infection? No. Patient's initial sepsis screen is negative. Care prior to arrival: None. 14:53 Method Of Arrival: Ambulatory sg 14:53 Acuity: LEIF 3 sg Historical: - Allergies: 14:56 No Known Allergies; sg - Home Meds: 14:55 Singulair 10 mg Oral tab 1 tab once daily [Active]; aspirin 81 mg Oral chew 1 tab once sg daily [Active]; Plavix 75 mg Oral tab 1 tab once daily [Active]; Pravachol 40 mg Oral tab 1 tab once daily [Active]; Prevacid 30 mg Oral cpDR 1 cap once daily [Active]; - PMHx: 14:55 Diabetes - NIDDM; GERD; Headaches; High Cholesterol; Myocardial infarction; Rheumatoid sg Arthritis; - PSHx: 14:55 EGD; Heart stents; sg - Immunization history:: Adult Immunizations. - Social history:: Smoking status: Patient/guardian denies using tobacco. - Ebola Screening: : Patient negative for fever greater than or equal to 101.5 degrees Fahrenheit, and additional compatible Ebola Virus Disease symptoms Patient denies exposure to infectious person Patient denies travel to an Ebola-affected area in the 21 days before illness onset No symptoms or risks identified at this time. - Family history:: not pertinent. Screenin:10 Abuse screen: Denies threats or abuse. Denies injuries from another. Nutritional ca1 screening: No deficits noted. Tuberculosis screening: No symptoms or risk factors identified. Fall Risk Secondary diagnosis (15 points) vertigo. IV access (20 points). Gait-. Assessment: 16:10 General: Appears in no apparent distress. comfortable, Behavior is calm, cooperative, ca1 appropriate for age. General:. Pain: Denies pain. Neuro: Level of Consciousness is. Neuro: Reports dizziness, since a few days. Worsens with position changes. States he has vertigo. Cardiovascular: Heart tones S1 S2 present Capillary refill < 3 seconds Patient's skin is warm and dry. Cardiovascular:. Respiratory: Airway is patent Respiratory effort is even, unlabored, Respiratory pattern is regular, symmetrical, Breath sounds are clear bilaterally. Respiratory:. GI: Abdomen is flat, non-distended, Bowel sounds present X 4 quads. Abd is soft and non tender X 4 quads. : No deficits noted. No signs and/or symptoms were reported regarding the genitourinary system. EENT: No deficits noted. No signs and/or symptoms were reported regarding the EENT system. Derm: Skin is intact, is healthy with good turgor, Skin is pink, warm \T\ dry. Musculoskeletal: Circulation, motion, and sensation intact. Capillary refill < 3 seconds. 17:25 Reassessment: Patient appears in no apparent distress at this time. Patient and/or ca1 family updated on plan of care and expected duration. Pain level reassessed. Patient is alert, oriented x 3, equal unlabored respirations, skin warm/dry/pink. 18:20 Reassessment: Patient appears in no apparent distress at this time. Patient and/or ca1 family updated on plan of care and expected duration. Pain level reassessed. Patient is alert, oriented x 3, equal unlabored respirations, skin warm/dry/pink. 19:30 Reassessment: Patient appears in no apparent distress at this time. Patient and/or ca1 family updated on plan of care and expected duration. Pain level reassessed. Patient is alert, oriented x 3, equal unlabored respirations, skin warm/dry/pink. Vital Signs: 14:53 BP 110 / 76; Pulse 80; Resp 17; Temp 98.3; Pulse Ox 100% on R/A; Weight 79.38 kg (R); sg Height 5 ft. 10 in. (177.80 cm); Pain 0/10; 16:10 BP 136 / 81; Pulse 69; Resp 19; Pulse Ox 98% on R/A; ca1 17:25 BP 133 / 79; Pulse 64; Resp 19; Pulse Ox 100% ; ca1 18:30 BP 113 / 66; Pulse 60; Resp 19; Pulse Ox 100% on R/A; ca1 19:35 BP 115 / 64; Pulse 71; Resp 19; Pulse Ox 100% on R/A; ca1 14:53 Body Mass Index 25.11 (79.38 kg, 177.80 cm) sg ED Course: 14:40 Patient arrived in ED. as 14:40 Dior Do DO is Private Physician. as 14:55 Triage completed. sg 14:55 Arm band placed on. sg 16:10 Patient has correct armband on for positive identification. Pulse ox on. NIBP on. Warm ca1 blanket given. 16:24 Merrill Fine MD is Attending Physician. [facility] 16:27 Madison Strauss, RN is Primary Nurse. ca1 17:15 No provider procedures requiring assistance completed. Inserted saline lock: 20 gauge mg2 in right antecubital area, using aseptic technique. Blood collected. 17:30 EKG done, by residential gas heat technician. reviewed by Merrill Fine MD. sm3 18:16 XRAY Chest (1 view) In Process Unspecified. EDMS 19:08 Kevin Hu PA is PHCP. jmm 19:17 US Carotid Artery Bilateral In Process Unspecified. EDMS 19:22 Brain Wo Cont In Process Unspecified. EDMS 19:55 Dior Do DO is Referral Physician. jmm 20:09 IV discontinued, intact, bleeding controlled, No redness/swelling at site. Pressure ca1 dressing applied. Administered Medications: 17:14 Drug: NS 0.9% 1000 ml Route: IV; Rate: 1 bolus; Site: right antecubital; mg2 19:00 Follow up: IV Status: Completed infusion ca1 17:14 Drug: foLIC Acid 1 mg Route: IVPB; Site: right antecubital; mg2 19:00 Follow up: Response: No adverse reaction; IV Status: Completed infusion ca1 Outcome: 19:55 Discharge ordered by MD. workman 20:09 Discharged to home ambulatory, with significant other. ca1 20:09 Condition: stable 20:09 Discharge instructions given to patient, Instructed on discharge instructions, follow up and referral plans. medication usage, Demonstrated understanding of instructions, follow-up care, medications, Prescriptions given X 1. 20:17 Patient left the ED. mg2 Signatures: Dispatcher [employer] EDMS Jose Macias, MIKE RN Merrill Ludwig MD MD cha Mickail, Joel, PA PA Dafne Key Michele, RN RN mg2 Shama Quezada 3 Madison Strauss RN RN ca1 Corrections: (The following items were deleted from the chart) 17:33 17:25 Reassessment: Patient appears in no apparent distress at this time. Patient ca1 and/or family updated on plan of care and expected duration. Pain level reassessed. Patient is alert, oriented x 3, equal unlabored respirations, skin warm/dry/pink. pt from CT scan. ca1
[2018-11-26 21:30] VITALS: TEMP 98.3
[2018-11-26 21:32] VITALS: O2SAT 100
[2018-11-26 21:34] VITALS: BP 115/64
--- NOTE | 2018-11-27 10:33 | EKG ---
Test Date: 2018-11-26 Test Time: 17:03:24 Research Chef: CHANDRA MEASUREMENT RESULTS: Intervals: Rate: 63 VT: 152 QRSD: 102 QT: 412 QTc: 421 [place]: P: 43 VT: 152 QRS: -67 T: 41 INTERPRETIVE STATEMENTS: Normal sinus rhythm Pulmonary disease pattern Left anterior fascicular block Abnormal ECG Compared to ECG 02/09/2018 16:54:48 Sinus bradycardia no longer present Myocardial infarct finding no longer present Electronically Signed On 11-26-18 17:42:53 CDT by Que Zelaya
== END 2018-11-26 20:17 | disposition home or self-care (01) ==
LOC: ER 14:39
DX: E11.9 Type 2 diabetes mellitus without complications (principal); E78.00 Pure hypercholesterolemia, unspecified; I25.2 Old myocardial infarction; Z79.01 Long term (current) use of anticoagulants; Z79.82 Long term (current) use of aspirin; Z95.818 Presence of other cardiac implants and grafts
CPT/HCPCS: 93005; 87088; 85025; 87086; 80048; 36415; 83735; 85610; 80076; 81003; 84484; 83690; 83880; 71045; 93880; 70551; J7030

== ENCOUNTER 2019-02-08 02:08 | Emergency (ER) | payer OTHER ==
[2019-02-08 02:48] LABS: Absolute Lymphocytes (CBC) 0.7 K/uL (0.7-4.9); Absolute Monocytes 0.4 K/uL (0.1-1.3); Absolute Neutrophil 4.3 K/uL (1.8-8.0); Basophils % 0.8 % (0-1.3); Eosinophils % 0.7 % (0-4.4); Hematocrit 33.6 % (39.6-49.0); Lymphocytes % 12.7 % (15.3-44.8); MPV 10.1 fL (7.6-11.3); Monocytes % 7.8 % (3.3-12.3); RBC Red Blood Cell Count 3.12 M/uL (4.33-5.43)
[2019-02-08 02:54] LABS: Protime INR 2.09
[2019-02-08 03:08] LABS: ALT/SGPT 26 U/L (12-78); AST/SGOT 17 U/L (15-37); Albumin 2.8 g/dL (3.4-5.0); Alkaline Phosphatase 55 U/L (45-117); BUN Blood Urea Nitrogen 16 mg/dL (7-18); Bicarbonate 25 mmol/L (21-32); Bilirubin Direct 0.2 mg/dL (0-0.2); Bilirubin Total 0.5 mg/dL (0.2-1.0); Glucose Level 107 mg/dL (74-106); Magnesium 2.3 mg/dL (1.8-2.4); NT PRO-BNP 307 pg/mL (<125); Potassium 3.5 mmol/L (3.5-5.1); Protein, Total 7.1 g/dL (6.4-8.2); Sodium Level 136 mmol/L (136-145); Troponin (Emerg Dept Use Only) < 0.02 ng/mL (0.0-0.045)
[2019-02-08] MEDS ORDERED: MORPHINE 4 MG/ML SYR ONE (04:41)
[2019-02-08] MEDS ORDERED: ONDANSETRON 4 MG/2 ML VIAL ONE (04:41)
--- NOTE | 2019-02-08 06:18 | ER ---
Nurse's Notes [facility] Name: Michael Grant Age: 73 yrs Sex: Male : 1945 Arrival Date: 02/08/2019 Time: 02:09 Bed 8 Private MD: Dior Do H Diagnosis: Chest pain. Right pleural effusion. Right pulmonary nodule Presentation: 02/08 02:31 Presenting complaint: Patient states: right sided chest pain, does not radiate, pain tl2 since this morning. Aggravated by lying down, relieved by standing or sitting up. Pt reports feeling generally unwell since saturday. Transition of care: patient was not received from another setting of care. Onset of symptoms was February 07, 2019. Risk Assessment: Do you want to hurt yourself or someone else? Patient reports no desire to harm self or others. Initial Sepsis Screen: Does the patient meet any 2 criteria? No. Patient's initial sepsis screen is negative. Does the patient have a suspected source of infection? No. Patient's initial sepsis screen is negative. Care prior to arrival: None. 02:31 Method Of Arrival: Ambulatory tl2 02:31 Acuity: LEIF 3 tl2 Triage Assessment: 02:35 General: Appears in no apparent distress. uncomfortable, Behavior is calm, cooperative, tl2 appropriate for age. Cardiovascular: Chest pain is described as mild, quality is sharp, is located in right anterior chest wall began 1 day ago is aggravated by lying down. Historical: - Allergies: 02:35 No Known Allergies; tl2 - Home Meds: 02:35 aspirin 81 mg Oral chew 1 tab once daily [Active]; Plavix 75 mg Oral tab 1 tab once tl2 daily [Active]; Prevacid 30 mg Oral cpDR 1 cap once daily [Active]; Pravachol 40 mg Oral tab 1 tab once daily [Active]; Singulair 10 mg Oral tab 1 tab once daily [Active]; ranitidine HCl 150 mg Oral cap 1 cap once daily [Active]; lansoprazole 30 mg oral cpDR 1 cap once daily [Active]; montelukast 10 mg oral tab 1 tab once daily [Active]; hydroxychloroquine 200 mg oral tab 1 tab once daily [Active]; sucralfate 1 gram Oral tab 1 tab 2 times per day [Active]; - PMHx: 02:35 Diabetes - NIDDM; GERD; Headaches; High Cholesterol; Myocardial infarction; Rheumatoid tl2 Arthritis; - PSHx: 02:35 Heart stents; tl2 - Immunization history:: Adult Immunizations up to date. - Social history:: Smoking status: Patient/guardian denies using tobacco. - Ebola Screening: : No symptoms or risks identified at this time. Screenin:37 Abuse screen: Denies threats or abuse. Nutritional screening: No deficits noted. tl2 Tuberculosis screening: No symptoms or risk factors identified. Fall Risk None identified. Assessment: 02:40 General: Appears in no apparent distress. comfortable, Behavior is calm, cooperative, rr5 appropriate for age. 02:40 Pain: Complains of pain in right rib cage area Pain does not radiate. Quality of pain rr5 is described as aching, Pain began gradually, Is intermittent. Neuro: Level of Consciousness is awake, alert, obeys commands, Oriented to person, place, time, situation, Appropriate for age. Cardiovascular: Reports chest pain, Capillary refill < 3 seconds Patient's skin is warm and dry. Respiratory: Airway is patent Respiratory effort is even, unlabored, Respiratory pattern is regular, symmetrical. GI: No signs and/or symptoms were reported involving the gastrointestinal system. : No signs and/or symptoms were reported regarding the genitourinary system. EENT: No signs and/or symptoms were reported regarding the EENT system. Derm: Skin is intact, Skin temperature is warm. Musculoskeletal: Circulation, motion, and sensation intact. Capillary refill < 3 seconds. 03:35 Reassessment: Patient appears in no apparent distress at this time. Patient is alert, rr5 oriented x 3, equal unlabored respirations, skin warm/dry/pink. awaiting for result. no complaints made. awaiting for review. 04:25 Reassessment: complaining of chest pain. ED provider aware with order made and carried rr5 out. for CT angio. 04:48 Reassessment: Patient appears in no apparent distress at this time. Patient is alert, rr5 oriented x 3, equal unlabored respirations, skin warm/dry/pink. patient went to CT angio. 05:50 Reassessment: Patient appears in no apparent distress at this time. Patient and/or rr5 family updated on plan of care and expected duration. Pain level reassessed. awake chatting with his infrastructure tech. awaiting for review. 06:28 Reassessment: Patient appears in no apparent distress at this time. Patient and/or rr5 family updated on plan of care and expected duration. Pain level reassessed. Patient is alert, oriented x 3, equal unlabored respirations, skin warm/dry/pink. discharge instruction given and explained without complaints made. Vital Signs: 02:35 BP 126 / 87; Pulse 64; Resp 18; Temp 98.4(O); Pulse Ox 97% on R/A; Weight 79.38 kg; tl2 Height 5 ft. 10 in. (177.80 cm); Pain 4/10; 03:15 BP 93 / 63; Pulse 61; Resp 18; Pulse Ox 99% ; ea 04:00 BP 93 / 53; Pulse 61; Resp 18; Pulse Ox 97% on R/A; ea 04:00 Pain 2/10; rr5 04:30 BP 113 / 62; Pulse 60; Resp 17; Pulse Ox 99% on R/A; rr5 05:10 BP 92 / 59; Pulse 63; Resp 16; Pulse Ox 98% on R/A; Pain 3/10; rr5 06:00 BP 95 / 57; Pulse 61; Resp 15; Temp 98.2; Pulse Ox 99% on R/A; Pain 3/10; rr5 06:26 BP 91 / 60; Pulse 60; Resp 17; Temp 98.7; Pulse Ox 99% on R/A; rr5 02:35 Body Mass Index 25.11 (79.38 kg, 177.80 cm) tl2 ED Course: 02:09 Patient arrived in ED. am2 02:10 Dior Do DO is Private Physician. am2 02:24 Edwin Escalante, MIKE is Primary Nurse. rr5 02:32 Triage completed. tl2 02:35 Arm band placed on right wrist. tl2 02:37 Patient has correct armband on for positive identification. Bed in low position. Call tl2 light in reach. Side rails up X2. Adult w/ patient. Pulse ox on. NIBP on. 02:37 Patient maintains SpO2 saturation greater than 95% on room air. tl2 02:41 Initial lab(s) drawn, by me, sent to lab. EKG done. Inserted saline lock: 20 gauge in lt1 right antecubital area, using aseptic technique. 02:58 X-ray completed. Portable x-ray completed in exam room. Patient tolerated procedure mh1 well. 02:59 XRAY Chest (1 view) In Process Unspecified. EDMS 03:08 Serge Forrest MD is Attending Physician. pkl 04:12 Notified ED physician of a critical lab result(s). d dimer of 860. 05:33 CT Chest For PE Angio In Process Unspecified. EDMS 06:17 Lukasz Veronica MD is Referral Physician. pkl 06:28 No provider procedures requiring assistance completed. IV discontinued, intact, rr5 bleeding controlled, No redness/swelling at site. Pressure dressing applied. Administered Medications: 04:30 Drug: Zofran 4 mg Route: IVP; Site: right antecubital; rr5 05:30 Follow up: Response: No adverse reaction rr5 04:32 Drug: morphine 4 mg Route: IVP; Site: right antecubital; rr5 05:30 Follow up: Response: No adverse reaction rr5 Outcome: 06:18 Discharge ordered by . pkl 06:28 Discharged to home via wheelchair, with family. rr5 06:28 Condition: stable 06:28 Discharge instructions given to patient, Instructed on discharge instructions, follow up and referral plans. medication usage, Demonstrated understanding of instructions, follow-up care, medications, Prescriptions given X 1. 06:29 Patient left the ED. rr5 Signatures: Dispatcher [employer] EDMS Serge Frorest MD MD pkl Rosalba Abbott 1 Carmen Funez RN Bere Butt RN RN tl2 Chloe Camargo 2 Anayeli Moses RN RN ea Roque, Raymond, RN RN rr5 Erendira Quinn lt1
--- NOTE | 2019-02-08 06:19 | EDPHYS ---
Physician Documentation [facility] Name: Michael Grant Age: 73 yrs Sex: Male : 1945 Arrival Date: 02/08/2019 Time: 02:09 Bed 8 Private MD: Dior Do H ED Physician Serge Forrest HPI: 02/08 03:16 This 73 yrs old Male presents to ER via Ambulatory with complaints of Chest pkl Pain. 03:16 The patient or guardian reports chest pain that is located primarily in the right lower pkl chest. Onset: yesterday. The pain does not radiate. Associated signs and symptoms: The patient has no apparent associated signs or symptoms. The chest pain is described as stabbing. Historical: - Allergies: 02:35 No Known Allergies; tl2 - Home Meds: 02:35 aspirin 81 mg Oral chew 1 tab once daily [Active]; Plavix 75 mg Oral tab 1 tab once tl2 daily [Active]; Prevacid 30 mg Oral cpDR 1 cap once daily [Active]; Pravachol 40 mg Oral tab 1 tab once daily [Active]; Singulair 10 mg Oral tab 1 tab once daily [Active]; ranitidine HCl 150 mg Oral cap 1 cap once daily [Active]; lansoprazole 30 mg oral cpDR 1 cap once daily [Active]; montelukast 10 mg oral tab 1 tab once daily [Active]; hydroxychloroquine 200 mg oral tab 1 tab once daily [Active]; sucralfate 1 gram Oral tab 1 tab 2 times per day [Active]; - PMHx: 02:35 Diabetes - NIDDM; GERD; Headaches; High Cholesterol; Myocardial infarction; Rheumatoid tl2 Arthritis; - PSHx: 02:35 Heart stents; tl2 - Immunization history:: Adult Immunizations up to date. - Social history:: Smoking status: Patient/guardian denies using tobacco. - Ebola Screening: : No symptoms or risks identified at this time. ROS: 03:16 Eyes: Negative for injury, pain, redness, and discharge, ENT: Negative for injury, pkl pain, and discharge, Neck: Negative for injury, pain, and swelling. 03:16 Cardiovascular: Positive for chest pain. 03:16 Respiratory: Negative for cough, shortness of breath. 03:16 Abdomen/GI: Negative for abdominal pain, nausea, vomiting, and diarrhea. 03:16 Back: Negative for acute changes. 03:16 : Negative for urinary symptoms. 03:16 MS/extremity: Negative for acute changes. 03:16 Skin: Negative for rash. 03:16 Neuro: Negative for altered mental status. Exam: 03:16 Head/Face: Normocephalic, atraumatic. Eyes: Pupils equal round and reactive to light, pkl extra-ocular motions intact. Lids and lashes normal. Conjunctiva and sclera are non-icteric and not injected. Cornea within normal limits. Periorbital areas with no swelling, redness, or edema. ENT: Nares patent. No nasal discharge, no septal abnormalities noted. Tympanic membranes are normal and external auditory canals are clear. Oropharynx with no redness, swelling, or masses, exudates, or evidence of obstruction, uvula midline. Mucous membranes moist. Neck: Trachea midline, no thyromegaly or masses palpated, and no cervical lymphadenopathy. Supple, full range of motion without nuchal rigidity, or vertebral point tenderness. No Meningismus. Chest/axilla: Normal chest wall appearance and motion. Nontender with no deformity. No lesions are appreciated. Cardiovascular: Regular rate and rhythm with a normal S1 and S2. No gallops, murmurs, or rubs. Normal PMI, no JVD. No pulse deficits. Respiratory: Lungs have equal breath sounds bilaterally, clear to auscultation and percussion. No rales, rhonchi or wheezes noted. No increased work of breathing, no retractions or nasal flaring. Abdomen/GI: Soft, non-tender, with normal bowel sounds. No distension or tympany. No guarding or rebound. No evidence of tenderness throughout. Back: No spinal tenderness. No costovertebral tenderness. Full range of motion. Skin: Warm, dry with normal turgor. Normal color with no rashes, no lesions, and no evidence of cellulitis. MS/ Extremity: Pulses equal, no cyanosis. Neurovascular intact. Full, normal range of motion. Neuro: Awake and alert, GCS 15, oriented to person, place, time, and situation. Cranial nerves II-XII grossly intact. Motor strength 5/5 in all extremities. Sensory grossly intact. Cerebellar exam normal. Normal gait. Vital Signs: 02:35 BP 126 / 87; Pulse 64; Resp 18; Temp 98.4(O); Pulse Ox 97% on R/A; Weight 79.38 kg; tl2 Height 5 ft. 10 in. (177.80 cm); Pain 4/10; 03:15 BP 93 / 63; Pulse 61; Resp 18; Pulse Ox 99% ; ea 04:00 BP 93 / 53; Pulse 61; Resp 18; Pulse Ox 97% on R/A; ea 04:00 Pain 2/10; rr5 04:30 BP 113 / 62; Pulse 60; Resp 17; Pulse Ox 99% on R/A; rr5 05:10 BP 92 / 59; Pulse 63; Resp 16; Pulse Ox 98% on R/A; Pain 3/10; rr5 06:00 BP 95 / 57; Pulse 61; Resp 15; Temp 98.2; Pulse Ox 99% on R/A; Pain 3/10; rr5 06:26 BP 91 / 60; Pulse 60; Resp 17; Temp 98.7; Pulse Ox 99% on R/A; rr5 02:35 Body Mass Index 25.11 (79.38 kg, 177.80 cm) tl2 MDM: 03:08 Patient medically screened. pkl 06:13 Data reviewed: vital signs, nurses notes, lab test result(s), EKG, radiologic studies, pkl CT scan, plain films. ED course: Discussed lab. and CT Scan results with patient and . Advised to follow up Lung Specialist ( Dr. Veronica ) next week for further evaluations.. 02/08 02:22 Order name: Basic Metabolic Panel 02/08 02:22 Order name: CBC with Diff 02/08 02:22 Order name: LFT's 02/08 02:22 Order name: Magnesium 02/08 02:22 Order name: NT PRO-BNP 02/08 02:22 Order name: PT-INR; Complete Time: 03:15 02/08 02:22 Order name: Troponin (emerg Dept Use Only); Complete Time: 03:15 02/08 02:22 Order name: XRAY Chest (1 view) 02/08 02:24 Order name: Basic Metabolic Panel; Complete Time: 03:15 EDMS 02/08 02:24 Order name: CBC with Automated Diff; Complete Time: 03:15 EDMS 05/26 02:24 Order name: Liver (Hepatic) Function; Complete Time: 03:15 [facility] 02/08 02:24 Order name: Magnesium; Complete Time: 03:15 [facility] 02/08 02:24 Order name: NT PRO-BNP; Complete Time: 03:15 [facility] 02/08 03:14 Order name: D-Dimer; Complete Time: 04:24 pkl 02/08 02:22 Order name: EKG; Complete Time: 02 02/08 02:22 Order name: Cardiac monitoring; Complete Time: 02/08 02:22 Order name: EKG - Nurse/Tech; Complete Time: : 02/08 02:22 Order name: IV Saline Lock; Complete Time: 02/08 02:22 Order name: Labs collected and sent; Complete Time: 02/08 02:22 Order name: O2 Per Protocol; Complete Time: 02/08 02:22 Order name: O2 Sat Monitoring; Complete Time: 02/08 04:26 Order name: CT Chest For PE Angio pkl Administered Medications: 04:30 Drug: Zofran 4 mg Route: IVP; Site: right antecubital; rr5 05:30 Follow up: Response: No adverse reaction rr5 04:32 Drug: morphine 4 mg Route: IVP; Site: right antecubital; rr5 05:30 Follow up: Response: No adverse reaction rr5 Disposition: 02/08/19 06:18 Discharged to Home. Impression: Chest pain. Right pleural effusion. Right pulmonary nodule. - Condition is Stable. - Prescriptions for Ultram 50 mg Oral Tablet - take 1 tablet by ORAL route every 8 hours As needed; 30 tablet. - Medication Reconciliation Form, Thank You Letter, Antibiotic Education, Prescription Opioid Use form. - Follow up: Lukasz Veronica MD; When: 2 - 3 days; Reason: Re-evaluation by your physician. - Problem is new. - Symptoms have improved. Signatures: Dispatcher [employer] EDWY Serge Forrest MD MD pkl Chretien, Felicia, RN RN Bere Montanez RN RN tl2 Edwin Escalante RN RN rr5 Corrections: (The following items were deleted from the chart) 06:29 06:18 02/08/2019 06:18 Discharged to Home. Impression: Chest pain. Right pleural rr5 effusion. Right pulmonary nodule. Condition is Stable. Forms are Medication Reconciliation Form, Thank You Letter, Antibiotic Education, Prescription Opioid Use. Follow up: Lukasz Veronica; When: 2 - 3 days; Reason: Re-evaluation by your physician. Problem is new. Symptoms have improved. pkl
[2019-02-08 06:41] VITALS: O2SAT 99
[2019-02-08 06:42] VITALS: BP 91/60; TEMP 98.7
--- NOTE | 2019-02-08 08:18 | RAD REPORT ---
EXAM DESCRIPTION: RAD - Chest Single View - 02/08/2019 3:02 am CLINICAL HISTORY: Right-sided chest pain COMPARISON: November 2018 TECHNIQUE: AP portable chest image was obtained [id number] hours . FINDINGS: Lung volumes are normal. There is infiltrate and/ or atelectasis in the right base with sm all right pleural effusion. Heart and vasculature are normal. No pneumothorax. No acute bony abnormal ity seen. No acute aortic findings suspected. IMPRESSION: Small right pleural effusion with atelectasis and/ or infiltrate right base.
--- NOTE | 2019-02-08 10:06 | EKG ---
Test Date: 2019-02-08 Test Time: 02:26:33 Tunnel Form Placing Supervisor: ERNESTINET MEASUREMENT RESULTS: Intervals: Rate: 61 NE: 138 QRSD: 104 QT: 434 QTc: 436 [place]: P: 46 NE: 138 QRS: -54 T: 49 INTERPRETIVE STATEMENTS: Normal sinus rhythm Left anterior fascicular block Abnormal ECG Compared to ECG 11/26/2018 17:03:24 No significant changes Electronically Signed On 02-08-19 10:05:14 CDT by Vasquez Keating
--- NOTE | 2019-02-10 10:44 | RAD REPORT ---
EXAM DESCRIPTION: CT - Chest For Pe Angio - 02/08/2019 5:32 am CLINICAL HISTORY: The patient is 73 years old and is Male; CHEST PAIN TECHNIQUE: Axial computed tomographic angiography images of the chest with intravenous contrast usin g pulmonary embolism protocol. Sagittal and coronal reformatted images were created and reviewed. This CT exam was performed using one or more of the following dose reduction techniques: automated exposure control, adjustment of the mA and/or kV according to patient size, and/or use of iterative reconstruction technique. MIP reconstructed images were created and reviewed. COMPARISON: No relevant prior studies available. FINDINGS: PULMONARY ARTERIES: There are no obvious filling defects identified within the pulmonary arteries to suggest pulmonary embolism. AORTA: No acute findings. No thoracic aortic aneurysm. LUNGS: A 1.0 cm right lower lobe pulmonary nodule is present. Atelectasis of the right middle and right lower lobe is present. PLEURAL SPACE: A right pleural effusion is present. No pneumothorax. HEART: Trace pericardial effusion is present. No evidence of RV dysfunction. BONES/JOINTS: No acute fracture. No dislocation. SOFT TISSUES: Unremarkable. LYMPH NODES: Unremarkable. No enlarged lymph nodes. IMPRESSION: 1. No evidence of pulmonary embolism. 2. Small moderate right pleural effusion with associated atelectasis of the right middle and right lower lobe. 3. Right lower lobe pulmonary nodule. Consider a non-contrast Chest CT at 3 months, a PET/CT, or ti ssue sampling. Electronically signed by: Shweta Glaser MD 02/08/2019 5:39 AM CDT Due to temporary technical issues with the PACS/Fluency reporting system, reports are being signed by the in house radiologist as a courtesy to ensure prompt reporting. The interpreting radiologist is f ully responsible for the content of the report.
== END 2019-02-08 06:29 | disposition home or self-care (01) ==
LOC: ER 02:08
DX: R07.9 Chest pain, unspecified (principal); J90 Pleural effusion, not elsewhere classified; E11.9 Type 2 diabetes mellitus without complications; E78.00 Pure hypercholesterolemia, unspecified; K21.9 Gastro-esophageal reflux disease without esophagitis; Z79.82 Long term (current) use of aspirin; R91.1 Solitary pulmonary nodule
CPT/HCPCS: 93005; 85025; 80048; 36415; 83735; 85610; 85379; 80076; 84484; 83880; 71275; 71045; 96375; 96374; 99285; Q9967; J2405

== ENCOUNTER 2020-07-06 16:06 | Emergency (ER) | payer OTHER ==
--- OUTSIDE RECORDS SUMMARY | 2020-07-06 16:17 | XMS REPORT | Continuity of Care Document ---
:1945 Author Organization Organizer Information [facility] [facility] [employer] Care Team Providers Name Role Phone Organizer Information [employer] [facility] [employer] Unavailable Un available Problems Problem Status Onset Classification Date Comments Sourc e Date Reported R05 - COUGH Active [facility] 9 [place] C34.[address] MALIGNANT 9 NEOPLASM OF LOWER LOBE, Other fatigue 02/15/2019 [place] 9 Chest pain, 02/15/2019 [place] unspecified 9 Pleural 02/15/[address] [place] effusion, not 9 elsewhere classified CAP, FEVER Active [facility] [place] FLUID ON LUNGS Active [facility] [place] Pneumonia, 02/15/2019 [place] and unspecified organism PNEUMONIA, Active [facility] UNSPECIFIED [place] ORGANISM FEVER, Active [facility] UNSPECIFIED [place] MALIGNANT Active [facility] st NEOPLASM OF LOWER LOBE, RIGHT Medications Medication Details Route Status Patient Ordering Order Source Instructions Provider Date azithromycin 250 mg Notes: Take 1 Inactive 02/13 oral tablet hour before 2019 [place] or 2 hours after meals. (Same As: Zithromax) Acetaminophen 300 MG 1 - 2 tab, No Longer / Codeine Phosphate PO, Q4H, PRN Active 2019 [place] 30 MG Oral Tablet Pain, X 2 [Tylenol with day, # 20 Codeine #3] tab, 0 Refill(s) Dextromethorphan 10 mL, PO, Active Hydrobromide 2 MG/ML Q4H, PRN 2019 [place] / Guaifenesin 20 Cough, X 10 MG/ML Oral Solution day, # 240 mL, 0 Refill(s), Pharmacy: [facility]/pharmacy #[id number] Levofloxacin 750 MG 750 mg = 1 Active 02/13/ H Oral Tablet tab, PO, 2019 [place] [Levaquin] Q24H, X 7 day, # 7 tab, 0 Refill(s), Pharmacy: [facility]pharmacy #[id number] Notes: (Same No Longer as:Singulair) Active 2019 [place] lansoprazole 30 mg, Route: No Longer PO, Drug Active 2019 [place] form: DRC, Daily, Dosing Weight 81.091, kg, Start date: 02/12/19 9:00:00 CDT, Duration: 30 day, Stop date: 03/13/19 9:00:00 CDT Docusate Sodium 100 Notes: (Same No Longer 02/12 MG Oral Capsule as: Colace) Active 2018 [facility] (Do Not Crush) clopidogrel Notes: (Same No Longer As: Plavix) Active 2018 [place] Simethicone Notes: (Same No Longer as: Mylicon) Active 2018 [place] Ranitidine 150 MG 150 mg, 1 Inactive Oral Capsule cap, Route: 2019 [place] PO, Drug form: CAP, Bedtime, Dosing Weight 81.091, kg, Start date: 02/11/19 21:00:00 CDT, Duration: 30 day, Stop date: 03/12/19 21:00:00 CDT Pravastatin Notes: (Same No Longer as: Active 2018 [place] Pravachol) cefTRIAXone + Notes: (Same No Longer sterile water 10 mL As: Active 2018 [facility] Rocephin). Use with 100 mL NS and infuse over 30 min MEDICATION WASTE Product Size: 1000 mg Product Wasted: ___ mg azithromycin + Notes: (Same No Longer Sodium Chloride 0.9% As: Zithromax Active 2018 [place] IV 250 mL IV) Protonix Notes: Tablet No Longer should not be Active 2018 [place] chewed or crushed. (Same as: Protonix) Calcium Gluconate Notes: WASTE: No Longer F/P - Sink; E Active 2018 [place] - [facility] Magnesium Oxide Notes: (Same No Longer H as: Mag-Ox Active 2018 [place] 400) Magnesium oxide [id number] elemental magnesium Dose=____mg magnesium oxide (___mg elemental magnesium) Magnesium Sulfate Notes: WASTE: No Longer F/P - Sink; E Active 2018 [place] - [facility] Potassium Chloride Notes: Infuse No Longer 02/11 at a rate of Active 2018 [place] 10 mEq/hr. (Same as: KCL) sodium phosphate Notes: Infuse No Longer over 4 hour. Active 2018 [place] Do not infuse phosphorous concurrently in the same line as TPN or IVF that contains calcium. For double lumen central lines, phosphorous may be infused in a separate lumen from TPN. potassium phosphate Notes: (Same No Longer 02/11 as: K Active 2018 [place] Phosphate.) Do not infuse phosphorous concurrently in the same line as TPN or IVF that contains calcium. For double lumen central lines, phosphorous may be infused in a separate lumen from TPN. 1 mMol phoshate has 1.47 mEq potassium Infuse over 4 hours potassium Notes: (Same No Longer phosphate-sodium as: Phos-NaK) Active 2018 [place] phosphate 250 mg-280 Each 1.5 gm mg-160 mg oral pkt has 250mg powder for phosphorous. reconstitution Mix w/2.5oz water and stir. Ranitidine 150 MG 150 mg = 1 Active Oral Capsule cap, PO, 2018 [place] Bedtime, 0 Refill(s) Hydroxychloroquine 200 mg = 1 Active Sulfate 200 MG Oral tab, PO, BID, 2018 [place] Tablet 0 Refill(s) Docusate Sodium 100 100 mg = 1 Active H MG Oral Capsule cap, PO, 2018 [place] Daily, bedtime, 0 Refill(s) montelukast 10 mg 10 mg = 1 Active oral tablet tab, PO, 2018 [place] Daily, 0 Refill(s) lansoprazole 30 mg 30 mg = 1 Active oral delayed release cap, PO, 2018 [place] capsule Daily, 0 Refill(s) simethicone 125 mg 125 mg = 1 Active oral capsule cap, PO, 2018 [place] Daily, bedtime, # 60 cap, 0 Refill(s) clopidogrel 75 mg 75 mg = 1 Active oral tablet tab, PO, 2018 [place] Daily, # 30 tab, 0 Refill(s) pravastatin 20 mg 20 mg = 1 Active oral tablet tab, PO, 2018 [place] Bedtime, # 30 tab, 0 Refill(s) Acetaminophen 325 MG Notes: (Same No Longer 01/15 / Hydrocodone as: [place] Active 2018 [place] Bitartrate 5 MG Oral 325/5) Do Tablet [[place] 5/325] not exceed 4gm/day of acetaminophen . Ceftriaxone 1 gm, Route: Inactive IVP, [id number], 2019 [place] kg, Start date: 02/10/19 21:00:00 CDT, Duration: 7 day, Stop date: 02/16/19 21:00:00 CDT, ABX Indication: Pneumonia Azithromycin Notes: (Same Inactive As: Zithromax 2018 [place] IV) Dextromethorphan Notes: No Longer Hydrobromide 2 MG/ML (dextromethor Active 2018 [place] / Guaifenesin 20 brand-guaifene MG/ML Oral Solution sin 10-100mg/5ml 10 ml oral SOLN ud) (Same as: Robitussin DM) Acetaminophen Notes: Do not No Longer exceed 4 Active 2018 [place] gm/day. (Same as: Tylenol) Ondansetron Notes: (Same No Longer as: Zofran) Active 2018 [place] MEDICATION WASTE Product Size: 4 mg Product Wasted: ___ mg NS (Bolus) IV 500 mL, 500 Inactive ml/hr, Infuse 2018 [place] Over: 1 hr, Route: IV, 500, Drug form: INJ, ONCE, Priority: STAT, kg, Start date: 02/10/19 18:56:00 CDT, Stop date: 02/10/19 18:56:00 CDT Azithromycin Notes: (Same Inactive As: Zithromax 2018 [place] IV) Ceftriaxone Notes: (Same Inactive As: 2019 [place] Rocephin). Use with 100 mL NS and infuse over 30 min MEDICATION WASTE Product Size: 1000 mg Product Wasted: ___ mg Allergies, Adverse Reactions, Alerts No Known Medication Allergies Immunizations No Data Provided for This Section Results Order Name Results Value Reference Date Interpretation Comments Luann rce Range HEMATOLOGY Lymphocytes 14.0 20.0 - 02/12 MH 40.0 /2018 [place] HEMATOLOGY Monocytes 21.0 2.0 - 12.0 02/12 /2018 [place] HEMATOLOGY Lymphocytes 0.4 1.0 - 5.5 02/12 MH # /2018 [place] HEMATOLOGY Neutrophils 2.0 1.5 - 8.1 02/12 MH # /2018 [place] HEMATOLOGY RBC Morph Normal Normal 02/12 MH (02/12/19 3:11 AM) /2018 [facility] HEMATOLOGY Segs 65.0 45.0 - 02/12 MH 75.0 /2018 [place] HEMATOLOGY Tot Cell Ct 100 02/12 /2018 [place] HEMATOLOGY Monocytes # 0.7 0.0 - 0.8 02/12 [place] HEMATOLOGY Plt Morph Normal Normal 02/12 (02/12/19 3:11 AM) /2018 [facility] HEMATOLOGY MPV 8.6 7.4 - 10.4 02/12 /2018 [place] HEMATOLOGY MCH 36.5 27.0 - 02/12 MH 31.0 [place] HEMATOLOGY MCHC 33.9 32.0 - 02/12 MH 36.0 [place] HEMATOLOGY WBC 3.1 3.7 - 10.4 02/12 /2018 [place] HEMATOLOGY Hgb 10.6 14.0 - 02/12 MH 18.0 [place] HEMATOLOGY Hct 31.2 42.0 - 02/12 MH 54.0 [place] HEMATOLOGY MCV 107.7 80.0 - 02/12 MH 94.0 [place] HEMATOLOGY RDW 20.3 11.5 - 02/12 MH 14.5 [place] HEMATOLOGY Platelet 298 133 - 450 02/12 [place] HEMATOLOGY RBC 2.90 4.70 - 02/12 MH 6.10 [place] Gram Stain Gram Stain 02/11 Report Performed [place] By: [facility] Culture: Normal 02/11 Respiratory Respirator /2018 [place] w/Gram Stain y Cecy Isolated BODY FLUIDS Gluc BF Type Pleural 02/11 MH *NA* /2018 [place] (02/11/19 11:40 AM) BODY FLUIDS Glucose BF 73 02/11 /2018 [place] BODY FLUIDS Prot BF Type Pleural 02/11 MH *NA* /2018 [place] (02/11/19 11:40 AM) BODY FLUIDS Protein BF 4.1 02/11 [place] BODY FLUIDS LDH BF Type Pleural 02/11 MH (02/11/19 11:40 AM) [place] and BODY FLUIDS LDH BF 794 02/11 [place] Gram Stain Rare WBC's 02/11 Report No Organisms [place] Culture: No Growth 02/11 Aspirate/ [place] y Fluid/Tissue BACTERIAL - Source Strep Urine 02/11 SEROLOGY *NA* /2018 [place] (02/11/19 11:21 AM) BACTERIAL - Strep Negative Negative 02/11 SEROLOGY pneumoniae (02/11/19 11:21 AM) [place] BODY FLUIDS Clarity BF Slight Cloudy Clear 02/11 MH (02/11/19 10:45 AM) [place] and BODY FLUIDS Nucleated 780 02/11 Cells [place] BODY FLUIDS Neutrophils 28 02/11 MH BF [place] BODY FLUIDS RBC BF 3900 02/11 [place] BODY FLUIDS Macrophage 51 02/11 MH BF [place] BODY FLUIDS Lymph BF 21 02/11 [place] BODY FLUIDS CellCnt BF Pleural 02/11 MH Type (02/11/19 10:45 AM) /2018 [place] and BODY FLUIDS Color BF Yellow Colorless 02/11 MH (02/11/19 10:45 AM) [place] and CARDIAC Troponin-I <0.02 0.00 - 02/11 ENZYMES 0. [place] CARDIAC Troponin-I <0.02 0.00 - 02/11 MH ENZYMES 0. [place] CARDIAC Troponin-I <0.02 0.00 - 02/11 MH ENZYMES 0. [place] CHEM PANEL Phosphorus 2.4 2.5 - 4.5 02/11 [place] CHEM PANEL Magnesium 2.1 1.8 - 2.4 02/11 MH Lvl /2018 [place] CHEM PANEL Procalcitoni 0.45 0.00 - 02/11 n Lvl 0. [place] ELECTROLYTE CO2 23 24 - 32 02/11 S [place] ELECTROLYTE Calcium Lvl 8.0 8.5 - 10.5 02/11 S [place] ELECTROLYTE AGAP 14.4 10.0 - 02/11 MH S 20.0 /2018 [place] ELECTROLYTE eGFR 94 02/11 Result MH S /2018 Comment: The [place] eGFR is calculated using the CKD-EPI formula. In most young, healthy individuals the eGFR will be >90 mL/min/1.73m2 . The eGFR declines with age. An eGFR of 60-89 may be normal in some populations, particularly the elderly, for whom the CKD-EPI formula has not been extensively validated. Use of the eGFR is not recommended in the following populations:< br/>
Katie viduals with unstable creatinine concentration s, including patients and those with serious co-morbid conditions.<b r/>
Patie nts with extremes in muscle mass or diet.

The data above are obtained from the National Kidney Disease Education Program (NKDEP) which additionally recommends that when the eGFR is used in patients with extremes of body mass index for purposes of drug dosing, the eGFR should be multiplied by the estimated BMI. ELECTROLYTE BUN 10 7 - 22 02/11 MH S /2018 [place] ELECTROLYTE Creatinine 0.71 0.50 - 02/11 MH S Lvl 1.40 /2018 [place] ELECTROLYTE Sodium Lvl 134 135 - 145 02/11 MH S [place] ELECTROLYTE Potassium 3.4 3.5 - 5.1 02/11 MH S Lvl /2018 [place] ELECTROLYTE Chloride Lvl 100 95 - 109 02/11 MH S [place] ELECTROLYTE Glucose Lvl 83 70 - 99 02/11 MH S [place] MOLECULAR Source Nasophrngl Swb 02/11 DIAGNOSTIC Respiratory *NA* [place] Panel PCR (02/10/19 10:37 PM) MOLECULAR Influenza A Negative Negative 02/11 DIAGNOSTIC PCR (02/10/19 10:37 PM) /2018 [facility] MOLECULAR Influenza B Negative Negative 02/11 DIAGNOSTIC PCR (02/10/19 10:37 PM) /2018 [facility] MOLECULAR RSV PCR Negative Negative 02/11 DIAGNOSTIC (02/10/19 10:37 PM) /2018 [facility] BACTERIAL - Source Strep Urine 02/11 SEROLOGY *NA* [place] (02/10/19 7:18 PM) BACTERIAL - Strep Negative Negative 02/11 SEROLOGY pneumoniae (02/10/19 7:18 PM) /2018 [place] Ag URINE AND UA <=1.0 0.1 - 1.0 02/11 STOOL Urobilinogen mg/dL [place] URINE AND UA Sq Epi None Seen 02/11 STOOL [place] URINE AND UA WBC 1 0 - 5 02/11 STOOL [place] URINE AND UA Mucus Many /LPF None Seen 02/11 STOOL /LPF /2018 [place] URINE AND UA Leuk Est Negative Negative 02/11 STOOL (02/10/19 7:18 PM) [place] URINE AND UA Nitrite Negative Negative 02/11 STOOL (02/10/19 7:18 PM) [place] URINE AND UA RBC 8 0 - 2 02/11 STOOL [place] URINE AND UA Bili Negative Negative 02/11 STOOL *NA* /2018 [place] (02/10/19 7:18 PM) URINE AND UA Blood Negative Negative 02/11 STOOL (02/10/19 7:18 PM) [place] URINE AND UA Turbidity Slight Clear 02/11 STOOL *ABN* /2018 [place] (02/10/19 7:18 PM) URINE AND UA Color [place] Yellow 02/11 STOOL *ABN* /2018 [place] (02/10/19 7:18 PM) URINE AND UA Spec Grav 1.024 <=1.030 02/11 [place] URINE AND UA Glucose Negative Negative 02/11 STOOL mg/dL mg/dL [place] URINE AND UA Protein 100 mg/dL Negative 02/11 STOOL mg/dL [place] URINE AND UA pH 5.0 5.0 - 8.0 02/11 STOOL [place] URINE AND UA Ketones 20 mg/dL Negative 02/11 STOOL mg/dL [place] CARDIAC BNP 46 <=100 02/10 [place] pg/mL /2018 [place] CHEM PANEL eGFR 86 02/10 Result Comment: The [place] eGFR is calculated using the CKD-EPI formula. In most young, healthy individuals the eGFR will be >90 mL/min/1.73m2 . The eGFR declines with age. An eGFR of 60-89 may be normal in some populations, particularly the elderly, for whom the CKD-EPI formula has not been extensively validated. Use of the eGFR is not recommended in the following populations:< br/>
Katie viduals with unstable creatinine concentration s, including patients and those with serious co-morbid conditions.<b r/>
Patie nts with extremes in muscle mass or diet.

The data above are obtained from the National Kidney Disease Education Program (NKDEP) which additionally recommends that when the eGFR is used in patients with extremes of body mass index for purposes of drug dosing, the eGFR should be multiplied by the estimated BMI. CHEM PANEL BUN 14 7 - 22 02/10 [place] CHEM PANEL Creatinine 0.87 0.50 - 02/10 MH Lvl 1.40 /2018 [place] CHEM PANEL Sodium Lvl 133 135 - 145 02/10 [place] CHEM PANEL Potassium 4.0 3.5 - 5.1 02/10 MH Lvl [place] CHEM PANEL CO2 25 24 - 32 02/10 [place] CHEM PANEL Calcium Lvl 8.3 8.5 - 10.5 02/10 [place] CHEM PANEL Chloride Lvl 97 95 - 109 02/10 [place] CHEM PANEL ALT 20 0 - 65 02/10 [place] CHEM PANEL Total 7.2 6.4 - 8.4 02/10 MH [place] CHEM PANEL Albumin Lvl 2.4 3.5 - 5.0 02/10 [place] CHEM PANEL AST 19 0 - 37 02/10 [place] CHEM PANEL Bili Total 0.8 0.2 - 1.3 02/10 [place] CHEM PANEL Alk Phos 51 39 - 136 02/10 [place] CHEM PANEL Glucose Lvl 99 70 - 99 02/10 [place] CHEM PANEL A/G Ratio 0.5 0.7 - 1.6 02/10 [place] CHEM PANEL Globulin 4.8 2.7 - 4.2 02/10 [place] CHEM PANEL B/C Ratio 16 6 - 25 02/10 [place] CHEM PANEL AGAP 15.0 10.0 - 02/10 MH 20.0 [place] CHEM PANEL Lactic Acid 1.0 0.5 - 2.2 02/10 MH Lvl [place] HEMATOLOGY Hgb 11.3 14.0 - 02/10 MH 18.0 [place] HEMATOLOGY WBC 4.4 3.7 - 10.4 02/10 /2018 [place] HEMATOLOGY MCV 107.0 80.0 - 02/10 MH 94.0 [place] HEMATOLOGY Hct 33.1 42.0 - 02/10 MH 54.0 [place] HEMATOLOGY RBC 3.10 4.70 - 02/10 MH 6.10 [place] HEMATOLOGY Platelet 356 133 - 450 02/10 /2018 [place] HEMATOLOGY MCHC 34.1 32.0 - 02/10 MH 36.0 [place] HEMATOLOGY MCH 36.5 27.0 - 02/10 MH 31.0 [place] HEMATOLOGY RDW 21.0 11.5 - 02/10 MH 14.5 [place] HEMATOLOGY MPV 8.5 7.4 - 10.4 02/10 [facility] Monocytes # 0.7 0.0 - 0.8 02/10 [place] HEMATOLOGY Lymphocytes 0.5 1.0 - 5.5 02/10 MH # /2018 [place] HEMATOLOGY Macrocyte 1+ None Seen 02/10 *ABN* /2018 [place] (02/10/19 6:01 PM) HEMATOLOGY Segs 71.6 45.0 - 02/10 MH 75.0 [place] HEMATOLOGY Neutrophils 3.1 1.5 - 8.1 02/10 MH # /2018 [place] HEMATOLOGY Basophils 0.4 0.0 - 1.0 02/10 [place] HEMATOLOGY Eosinophils 0.1 0.0 - 4.0 02/10 [place] HEMATOLOGY Lymphocytes 11.6 20.0 - 02/10 MH 40.0 [place] HEMATOLOGY Monocytes 16.3 2.0 - 12.0 02/10 [place] Pathology Reports No Data Provided for This Section Diagnostic Reports Report Value Date Source Chest 2 views DX PROCEDURE INFORMATION: 08/18/2019 [place] Exam: XR Chest, 2 Views Exam date and time: 08/18/2019 1:35 PM Age: 73 years old Clinical history: /r05 cough TECHNIQUE: Imaging protocol: XR of the chest Views: 2 views. Other technique: 2 views, frontal and lateral. COMPARISON: CHEST 1VIEW DX 02/11/2019 11:57 AM FINDINGS: Lungs: No infiltrates or other focal abnormaliti es. Pleural space: No pleural effusions. No pneumoth orax. Heart/Mediastinum: The heart is normal in size. Bones/joints: Minimal degenerative singh es are noted in the thoracic spine. No significant osseous abnormalities are seen. IMPRESSION: No active or acute process within the chest. 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 Dose: DLP = 596.0 mGy-cm; CTDIvol = 5.77 mGy COMPARISON: 02/10/[address] TECHNIQUE: Positron emission tomography imaging is performed 45 minutes after intravenous administration of 15.7 mCi of F-18 labeled FDG, from the skull base to the mid thigh region. PET images were reviewed in th e axial, coronal and sagitta l orthogonal projections. Non-contrast enhanced CT imaging was for performed for attenuation correction, localization and limited diagnostic purposes. INJECTION SITE: Right wrist Serum glucose: 128 mg/dL. FINDINGS: NECK: There are no foci of abnormal metabolic ac tivity. CHEST: Marked decrease in th e degree of right sided infiltrate with resolved right pleural effusion. Persistent reticular infiltrate in the right middle lobe. Right lower lobe pulmonary nodule on image 100 measures 7-8 mm, SUV 1.0 5. Cardiomegaly with coronary artery calcifications. Gynecomastia. ABDOMEN: There are no foci of abnormal metabolic activity. PELVIS: There are no foci of abnormal metabolic activity. BONES: There are no foci of abnormal metabolic a ctivity. Physiologic F-18 labeled FDG distribution is noted in the brain, heart, liver, spleen, gastrointestinal and genitourinary tracts. IMPRESSION: 1. Near-complete resolution of the right-sided infiltrate and pleural effusion suggestive of resolved pneumonia. Persistent right lower lobe pulmonary nodule for which a three-month follow-up chest CT without contrast is recommended to document stab ility. FDG PET is known to show lit tle to no uptake in malignant disease with low metabolic activity including bronchoalveolar carcinoma (renamed adenocarcinoma in situ, minimally invasive adenocarcinoma) or c arcinoid. There are studies showing malignant pleural mesothelioma with SUV values ranging from less than 1 to greater than 12 depending on metabolic activity of the tumor. SL: [id number] Chest 1view DX Study: Chest 1view DX 02/11/2019 11:52 CDT 2018 [facility] Patient Name: MYRNA GARCIA MR: [id number] : 1945; Age: 73 years y/o Male Ordering Physician: Dayo Simmons MD Clinical Indication: - s/p right thoracentesis Comparison: 02/10/2019 x-ray FINDINGS LUNGS: Small residual right pleural effusion. Right lower lung linear atelectasis. HEART AND MEDIASTINUM: Normal size heart. LINES: None. OSSEOUS STRUCTURES: Mild spi nal degenerative change without fracture, dislocation, or focal osseous lesion. OTHER: None. IMPRESSION: 1. Small right pleural effu emerson, decreased in size following thoracentesis. No pneumothorax identified. SL: [id number] Thoracentesis with Patient Name: MYRNA [facility] : 1945; Age: 73 years y/o Male MR: [id number] PROCEDURE: Ultrasound-guided right thoracentesis . PHYSICIAN PROVIDING SERVICE: Dayo Simmons M.D. HISTORY: Right pleural effusion. CONSENT: The procedure, risk s, benefits and alternatives were discussed with the patient and written informed consent was obtained. IMAGING STUDIES REVIEWED: Chest computed tomogr aphy scan from yesterday. TECHNIQUE: The right chest w as scanned from a posterior approach with ultrasound demonstrating a moderate right pleural effusion. A hard copy image of the ultrasound was obtained and placed in the patie nt's permanent record. A dwyane table right posterior lower chest location for thoracentesis was chosen by ultrasound. A generous portion of the right posterior lower chest was prepped with ChloraP rep and draped. Utilizing ul trasound guidance, under local anesthesia with 1% lidocaine, a 5-[place] Centeze centesis catheter ([employer]) was advanced into the right pleural space. Approximatel y 600 mL of translucent pleu ral fluid was evacuated. The sheath needle was then removed without difficulty. A sample sent for laboratory studies as request ed. A postprocedure chest radiograph was ordered. The patient tolerated the pr ocedure well and suffered no immediate complications. IMPRESSION: Ultrasound-guide d right thoracentesis. Approximately 600 mL of translucent pleural fluid was evacuated. A sample sent for laboratory studies as requested. SL: [id number] Chest wo contrast CT Chest CT without contrast: 02/10/2019 [facility] Multiplanar helical imaging performed through the chest without IV contrast. CT imaging performed at this location utilizes radiation dose optimization techniques which include one or more of the following: -Automated exposure control -Adjustment of the mA and/or kV according to pat ient size -Use of iterative reconstruction technique CT Radiation Dose DLP 455 mGy-cm. HISTORY: Short of breath. COMPARISON: Single view chest 02/10/2019 FINDINGS: Pneumonia is prese nt in the right middle lobe and in the right lower lobe. There is a small to moderate volume right pleural effusion. There are some small nodular densities within the infiltr ate in the lower lobe. These may be inflammatory but the chest should be reevaluated after clearing pneumonia to ensure there are no underlying nodules. The patient has minimal subsegmental atelectasis in the left lung base. The left lung is clear ot herwise. No mediastinal or hilar sean opathy. Normal caliber of the thoracic aorta. There are some coronary artery calcifications. Limited images to the upper abdomen are unremarkable. Degenerative changes with kyphosis in the dorsal spine. IMPRESSION: Right middle and right lower lobe pneumonia with right pleural effusion. Nodular component to the infiltrate right lower lobe, see comment SL: RAMAN Chest 1view DX CLINICAL INDICATION: - weakness, shortness of b reath 02/10/2019 [facility] COMPARISON: None. FINDINGS: The AP chest radiograph show s airspace opacity in the right lung base is seen with a moderate right pleural effusion. Small left pleural effusion with adjacent airspace opacity is seen. The upper lung f ields are clear. The heart s ize is borderline. Mild atherosclerotic calcifications are seen. IMPRESSION: Bilateral pleural effusions, right greater than left, with adjacent airspace opacities which may represent compressive atelectasis with or without superimposed infiltrate. SL: JENNIFER Consultation Notes No Data Provided for This Section Discharge Summaries No Data Provided for This Section History and Physicals No Data Provided for This Section Vital Signs Vital Sign Value Date Comments Source Temperature Oral (F) 97.5 F 02/13/2019 [facility] Systolic (mm Hg) 110 02/13/2019 [facility] Diastolic (mm Hg) 69 02/13/2019 [place] Respitory Rate 18 02/13/2019 [facility] Heart Rate 69 02/13/2019 [facility] Respitory Rate 20 02/13/2019 [facility] Heart Rate 65 02/13/2019 [facility] Temperature Oral (F) 97.8 F 02/13/2019 [facility] Systolic (mm Hg) 97 02/13/2019 [facility] Diastolic (mm Hg) 62 02/13/2019 [place] Respitory Rate 20 02/13/2019 [facility] Heart Rate 60 02/13/2019 [facility] Temperature Oral (F) 97.8 F 02/13/2019 [facility] Systolic (mm Hg) 103 02/13/2019 [facility] Diastolic (mm Hg) 68 02/13/2019 [place] Height 177.8 cm 02/11/2019 [facility] Weight 81.091 02/11/2019 [facility] BMI Calculated 25.65 02/11/2019 [facility] Weight 79.545 02/11/2019 [facility] BMI Calculated 25.16 02/11/2019 [facility] Height 177.8 cm 02/11/2019 [facility] Encounters Location Location Encounter Encounter Reason Attending ADM DC Stat us Source Details Type Number For Provider Date Date Visit [facility] [id number] Ch[place] 02/10 02/13 [facility] [place] /2018 [facility] Outpatient [id number] [place] 04/11 04/12 [facility] Out[facility] Diag [id number] [place] 08/18 08/19 [facility] [place] Procedures Procedure Code Date Perfomer Comments Source Placement of [id number] [facility] stent in cardiac [facility], conduit [facility] [place] Assessment and Plan Assessment and Plan Date Source Extracted from:Title: Pulmonary progress note 02/13/2019 [place] Author: Darinel Singh MD Date: 02/13/19 Pulmonary and Critical Care Progress Note Darinel Singh MD Subjective/overnight events: No acute events overnight. Patient appe ars to be improving. Still remains weak and had mild low-grade fever overnight. Discussed with patient and at bedside. Plan is for outpatient pulmonary fo llow-up with repeat CT scan prior to cli scot visit on 03/05 to evaluate nodular findings on CT chest this time. Plan will be for biopsy if needed. At this time okay to discharge home on oral antibiotics to complete 10-14 days of antibody ther apy and total given his immunocompromise. Okay to continue methotrexate. Chart reviewed patient examined Review of systems: ROS: General: No fever, no chills, no night sweats, no significan t pain Respiratory: +dyspnea, +persistent cough, no sputum producti on, no hemoptysis Cardiac: No chest pain, no palpitations, no lower extremity edema Gastro: No diarrhea, no nausea, no vomiting, no constipation Scheduled Meds (8): 02/13/19 azithromycin (azithromycin 250 mg oral tablet) 500 mg PO [id number] 02/11/19 cefTRIAXone + sterile water 10 mL 1 gm IV [id number] 1 20 ml/hr 02/12/19 clopidogrel 75 mg PO Daily 02/12/19 docusate (docusate sodium 100 mg oral capsule) 100 mg PO Daily 02/12/19 montelukast 10 mg PO Daily 02/11/19 pantoprazole (Protonix) 40 mg PO Before Dinner 02/11/19 pravastatin 20 mg PO Bedtime 02/11/19 simethicone 160 mg PO Bedtime Continuous Infusions: None Labs (Last four charted values) WBC L 3.1 (FEBRUARY 12) 4.4 (FEBRUARY 10) Hgb L 10.6 (FEBRUARY 12) L 11.3 (FEBRUARY 10) Hct L 31.2 (FEBRUARY 12) L 33.1 (FEBRUARY 10) Plt 298 (FEBRUARY 12) 356 (FEBRUARY 10) Na L 134 (FEBRUARY 11) L 133 (JANUARY 15) K L 3.4 (FEBRUARY 11) 4.0 (FEBRUARY 10) CO2 L 23 (FEBRUARY 11) 25 (FEBRUARY 10) Cl 100 (FEBRUARY 11) 97 (FEBRUARY 10) Cr 0.71 (FEBRUARY 11) 0.87 (FEBRUARY 10) BUN 10 (FEBRUARY 11) 14 (FEBRUARY 10) Glucose Random 83 (FEBRUARY 11) 99 (FEBRUARY 10) Mg 2.1 (FEBRUARY 11) Phos L 2.4 (FEBRUARY 11) Ca L 8.0 (FEBRUARY 11) L 8.3 (JANUARY 15) Troponin <0.02 (FEBRUARY 11 ) <0.02 (FEBRUARY 11) <0.02 (FEBRUARY 11) <0.02 (FEBRUARY 10) Objective: I&O Record In Out Bal 02/12 24hr Tot 260 0 260 02/11 24hr Tot [phone] Lines, Tubes, and Drains: 02/10/2019 18:07 Peripheral Lines: Forea rm Left 20 gauge Over the needle catheter 02/13/2019 07:35 SpO2 percent 96 02/13/2019 03:23 O2 Sat Location Left hand/finger 02/12/2019 20:30 Oxygen Therapy Mode Room air 02/12/2019 19:39 FIO2 (%) 21 Vital Signs (last 24 hrs) Last Charted Temp Oral 97.8 DegF (FEBRUARY 13 07:35) Heart Rate Peripheral 65 bpm (FEBRUARY 13 07:35) Resp Rate 20 BRMIN (FEBRUARY 13 07:35) SBP 97 mmHg (FEBRUARY 13 07:35) DBP 62 mmHg (FEBRUARY 13:35) SpO2 96 % (FEBRUARY 13 07:35) Exam: General: Frail, elderly, ill-appearing HEENT: no pallor, anicteric sclera Cardiovascular: regular, no murmur Respiratory: Some scattered rhonchi at right lung base, no w heezing Abdomen: soft, non-tender, +BS Extremities: no edema, no cyanosis Neurologic: Awake, Nonfocal Skin: no breakdown Problems: Right moderate pleural effusion, possibly parapneumonic Right lower lobe and middle lobe pneumonia Right lower lobe pulmonary nodule Mediastinal adenopathy Pleuritic chest pain Dyspnea Weight loss Rheumatoid arthritis Relapsing polychondritis Macrocytic anemia Leukopenia/lymphopenia Plan: Thoracentesis with exudative translucen t effusion, neither lymphocytic nor neutrophilic, cultures no growth to date, cytology negative for malignancy, patient breathing is improved following thoracentesis. Right middle lobe and lower lobe consol idation that are peribronchial in distribution concerning for bronchial pneumonia. Legionella and pneumococcal antigen negative. Initiated on ceftriaxone and azithromycin. Viral panel negative. Chest physiotherap y ordered. Completed 3 days of azithromycin therap y, can continue Augmentin or levofloxacin for 7 days further of p.o. therapy at home. Patient immunocompromised on methotrexa te at home, noted to have leuko-and lymphopenia on differential Pulmonary nodule noted right lower lobe , will need follow-up with repeat CT and probable biopsy. Will not take place during this admission. Mediastinal adenopathy, may be reactive versus malignant, will need outpatient follow-up as above with repeat cross-sectional imaging. Planning for outpatient pulmonary follow -up on 03/05, patient's to call for appointment. Plan for CT chest week prior to clinic visit. Given ER precautions and return to care instructions. Darinel Singh MD Pulmonary and Critical Care Extracted from:Title: Pulmonary consult note Author: Darinel Singh MD Date: 02/11/19 Pulmonary and Critical Care Consult Note Darinel Singh MD Reason for consult: Pneumonia, pulmonary nodules, right pleural effusion HPI: Patient is a 73-year-old male with past medical history significant for rheumatoid arthritis on methotrexate, relapsing polychondritis, CAD, and lupus who presented to the ED with worsening right-sided chest pain and generalized weakness whic h had been worsening over a period of weeks to months. He also was noted to have an unintentional 10 pound weight loss. No fevers or chills. Compliant with his medications. Follows with rheumatvinny smith for his underlying rheumatologic did was evaluated at outside ER where he had a CAT scan which demonstrated pleural effusions and pulmonary nodule. Rep eat CT scan here demonstrates right midd le lobe pneumonia as well as right lower lobe involvement also with some nodular opacities in the right lower lobe with adjacent pleural effusion that is moderate in size. No prior history of lung dise ase. Last hospitalization in 2013. History of CAD with 3 stents in the past. Patient is on aspirin and Plavix at home. Denies significant cough or sputum prod uction. No chest pain or palpitations. No headache no vision changes. No numbness no tingling no changes in sensation. No diarrhea no constipation no nausea no vomiting. No new skin rashes or lesio ns. No significant arthralgias. No dys uria or hematuria. No hemoptysis. No tuberculosis exposure of which she is aware. Former smoker but quit many years ago. Review of systems: 14 point review of systems negative except as per HPI Allergies Allergies (1) Active Reaction No Known Allergies None documented Procedure History Placement of stent in cardiac conduit Past Medical History No qualifying data available Family History Father: Heart disease Mother: Heart disease Social history Employment/School Details: Status: Retired. Sexual Details: Sexually active: Yes. Alcohol Details: Past, Type Liquor. Exercise Details: Exercise type: Walking. Tobacco Details: Use: Former smoker. Type: Ciga rettes. Tobacco smoke exposure: None. Did the Patient Smoke Cigarettes Anytime During the Last 365 Days? No. Cessation Counseling Provided? No. Substance Abuse Details: Use: None. Home Meds No qualifying data available Scheduled Meds (2): 02/11/19 azithromycin + Sodium Chloride 0.9% IV 250 mL 500 mg IVPB [id number] 166.67 ml/hr 02/11/19 cefTRIAXone + sterile water 10 mL 1 gm IV [id number] 1 20 ml/hr Continuous Infusions: None Labs (Last four charted values) WBC 4.4 (FEBRUARY 10) Hgb L 11.3 (FEBRUARY 10) Hct L 33.1 (FEBRUARY 10) Plt 356 (FEBRUARY 10) Na L 134 (FEBRUARY 11) L 133 (JANUARY 15) K L 3.4 (FEBRUARY 11) 4.0 (FEBRUARY 10) CO2 L 23 (FEBRUARY 11) 25 (FEBRUARY 10) Cl 100 (FEBRUARY 11) 97 (FEBRUARY 10) Cr 0.71 (FEBRUARY 11) 0.87 (FEBRUARY 10) BUN 10 (FEBRUARY 11) 14 (FEBRUARY 10) Glucose Random 83 (FEBRUARY 11) 99 (FEBRUARY 10) Mg 2.1 (FEBRUARY 11) Phos L 2.4 (FEBRUARY 11) Ca L 8.0 (FEBRUARY 11) L 8.3 (JANUARY 15) Troponin <0.02 (FEBRUARY 11 ) <0.02 (FEBRUARY 11) <0.02 (FEBRUARY 10) All imaging reviewed. Objective: I&O Record In Out Bal 02/11 24hr Tot 0 0 0 02/10 24hr Tot 760 0 760 Lines, Tubes, and Drains: 02/10/2019 18:07 Peripheral Lines: Forea rm Left 20 gauge Over the needle catheter 02/11/2019 08:42 Oxygen Therapy Mode Room air SpO2 percent 96 O2 Sat Location Left hand/finger 02/11/2019 07:44 FIO2 (%) 21 Vital Signs (last 24 hrs) Last Charted Temp Oral 98.3 DegF (FEBRUARY 11 08:42) Heart Rate Peripheral 60 bpm (FEBRUARY 11:) Resp Rate 18 BRMIN (FEBRUARY 11:42) SBP 99 mmHg (FEBRUARY 11:) DBP 63 mmHg (FEBRUARY 11:) SpO2 96 % (FEBRUARY 11:) Weight 81.091 kg (FEBRUARY 10:) Height 177.8 cm (FEBRUARY 10) BMI 25.65 (FEBRUARY 10:) Exam: General: Frail, elderly, ill-appearing HEENT: no pallor, anicteric sclera Cardiovascular: regular, no murmur Respiratory: Decreased breath sounds at right lung base, bronchial breath sounds at right lung base, no wheezing or significant rhonchi Abdomen: soft, non-tender, +BS Extremities: no edema, no cyanosis Neurologic: Awake, Nonfocal Skin: no breakdown Problems: Right moderate pleural effusion, possibly parapneumonic Right lower lobe and middle lobe pneumonia Right lower lobe pulmonary nodule Mediastinal adenopathy Pleuritic chest pain Dyspnea Weight loss Rheumatoid arthritis Relapsing polychondritis Plan: Plan for thoracentesis, explained risk and benefits to patient in regard to bleeding and infection risk as well as damage to underlying structures, fluid studies including LDH protein glucose jayla lular differential cytology and culture have been ordered. IR consult placed. Suspect either parapneumonic or possibly malignant. Right middle lobe and lower lobe consol idation that are peribronchial in distribution concerning for bronchial pneumonia. Legionella and pneumococcal antigen studies sent. Initiated on ceftriax one and azithromycin. Viral panel also sent. Chest physiot herapy ordered. Pulmonary nodule noted right lower lobe , will need follow-up with repeat CT and probable biopsy. Will not take place during this admission. Mediastinal adenopathy, may be reactive versus malignant, will need outpatient follow-up as above with repeat cross-sectional imaging. I spent greater than 30 minutes in revie wing the case, examining the patient, and discussing with the patient the clinical course and prognosis. Darinel Singh MD Pulmonary and Critical Care Extracted from:Title: History and Physical Author: Jayashree Renner MD Date: 02/10/19 Patient is a 73-year-old maleskin lupus, rheumatoid arthritis,relapsing polychondritis,CADwas brought in by wifedue toright-sided chest pain, worsening generalized weakness,and fatigue which has been ongoing for about 5 daysto 1 week Right middle and lower lobepneumonia: Maintain on ceftriaxone plus azithromyci n. Follow blood cultures,SPUTUM CX,procalcitonin level, viral panelwas bacterial panel. IV fluid Consult pulmonary regarding Adjascent pl eural effusion,does not seem parapneumonic however willappreciate recs Chest pain in adult(R07.9) Likely secondary to pneumonia which is c oncurrent where patient is having chest pain. Will give [place],because of history ofCAD, will trend troponins. Fatigue(R53.83) Most likely secondary to debilityas result of illness Autoimmune conditions: Currently on met hotrexate. Will holdmethotrexate givenseverity of infection. Debility: PT/OT Heparin >2 midnight Plan of Care No Data Provided for This Section Social History Social History Date Source Social History TypeResponse 02/11/2019 [facility] Substance Abuse Use: None. Sexual Sexually active: Yes. Exercise Exercise type: Walking. Employment/School Status: Retired. Alcohol Past, Type Liquor. Smoking Status Former smoker; Type: Cigarettes; Exposur e to Tobacco Smoke None; Cigarette Smoking Last 365 Days No; Reg Smoking Cessation Counseling No entered on: 02/10/19 Social History TypeResponse 02/11/2019 [facility] Substance Abuse Use: None. Sexual Sexually active: Yes. Exercise Exercise type: Walking. Employment/School Status: Retired. Alcohol Past, Type Liquor. Smoking Status Former smoker; Type: Cigarettes; Exposur e to Tobacco Smoke None; Cigarette Smoking Last 365 Days No; Reg Smoking Cessation Counseling No entered on: 02/10/19 Social History TypeResponse 02/11/2019 [facility] [place] Alcohol Past, Type Liquor. Employment/School Status: Retired. Exercise Exercise type: Walking. Sexual Sexually active: Yes. Substance Abuse Use: None. Smoking Status Former smoker; Type: Cigarettes; Exposur e to Tobacco Smoke None; Cigarette Smoking Last 365 Days No; Reg Smoking Cessation Counseling No entered on: 02/10/19 Family History No Data Provided for This Section Advance Directives No Data Provided for This Section Functional Status No Data Provided for This Section
--- OUTSIDE RECORDS SUMMARY | 2020-07-06 16:18 | XMS REPORT | Continuity of Care Document ---
:1945 Author Organization [facility] t Address [facility] [place] [address] Care Team Providers Name Role Phone Eros Singh Attending Clinician Patel Attending Clinician Patel Admitting Clinician Problems Condition Condition Condition Status Onset Resolution Last Treating Co mments Source Name Details Category Date Date Treatment Clinician Date R05 - Diagnosis Active 2018-092019-08-18 Mem oria COUGH 2-03 11:53:00 l R05 - 00:01: [place] COUGH 00 Active 08/18/2019 [facility] [place] C34.31 Diagnosis Active 2019-04-11 Mem oria MALIGNANT 7- 12:47:00 l NEOPLASM C34.31 00:00: 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, NEOPLASM OF LOWER LOBE, Active 04/06/2019 [place] CAP, FEVER Diagnosis Active 2019-02-12 Memoria 5-28 13:40:00 l CAP, 00:00: [place] FEVER 00 Active 02/10/2019 [facility] [place] FLUID ON Diagnosis Active 2019-02-10 M emoria LUNGS - 20:50:00 l FLUID ON 00:00: Humza n LUNGS 00 Active 02/10/2019 [facility] [place] Pneumonia, Problem 2019-02-15 M emoria unspecifie 22:27:14 l d organism Humza n Pneumonia, unspecifie d organism 02/15/2019 [place] PNEUMONIA, Diagnosis Active 2019-02-12 Memoria UNSPECIFIE 13:40:00 l D ORGANISM Humza n PNEUMONIA, UNSPECIFIE D ORGANISM Active [facility] [place] FEVER, Diagnosis Active 2019-02-12 Mem oria UNSPECIFIE 13:40:00 l D FEVER, [place] UNSPECIFIE D Active [facility] MALIGNANT Diagnosis Active 2019-04-11 Memoria NEOPLASM 12:47:00 l OF LOWER Norris LOBE, MALIGNANT RIGHT NEOPLASM OF LOWER LOBE, RIGHT Active [facility] Other Problem 2019-02-15 2019-02-15 M emoria fatigue 02-10 22:27:14 22:27:14 l Other 17:00: [place] fatigue 00 02/10/2019 02/15/2019 [facility] Chest Problem 2019-02-15 2019-02-15 M emoria pain, 02-10 22:27:14 22:27:14 l unspecifie Chest 17:00: Cassi nn d pain, 00 unspecifie d 02/10/2019 02/15/2019 [facility] Pleural Problem 2019-02-15 2019-02-15 Memoria effusion, 02-10 22:27:14 22:27:14 l not Pleural 17:00: Norris elsewhere effusion, 00 classified not elsewhere classified 02/10/2019 02/15/2019 [facility] Allergies, Adverse Reactions, Alerts This patient has no known allergies or adverse reactions. Social History Social Habit Start Date Stop Date Quantity Comments Source Social History 2019-02-11 2019-02-11 [facility] ermann 02:14:37 02:14:37 Medications Ordered Filled Start Stop Current Ordering Indication Dosage Frequency Signature Comments Components Source Medication Medication Date Date Medication? Clinician (SIG) Name Name trudypritinelson Yes Notes: Nikolai lidia n 250 mg 5-31 Take 1 l oral tablet 22:00: hour Humza n 00 before or 2 hours after meals. (Same As: Zithromax) Acetaminoph No 1 - 2 tab, Memoria en 300 MG / 5-31 PO, Q4H, l Codeine 19:33: PRN Pain, Cassi nn Phosphate 00 X 2 day, # 30 MG Oral 20 tab, 0 Tablet Refill(s) [Tylenol with Codeine #3] Dextrometho Yes 10 mL, PO, Memoria rphan 5-31 Q4H, PRN l Hydrobromid 19:28: Cough, X He rmann e 2 MG/ML / 00 10 day, # Guaifenesin 240 mL, 0 20 MG/ML Refill(s), Oral Pharmacy: [facility] #[id number] Levofloxaci Yes 750 mg = 1 Memoria n 750 MG 5-31 tab, PO, l Oral Tablet 19:28: Q24H, X 7 H ermann [Levaquin] 00 day, # 7 tab, 0 Refill(s), Pharmacy: [facility] #[id number] montelukast No Notes: Nikolai lidia 5-30 (Same l 14:00: as:Singula [place] 00 ir) lansoprazol No 30 mg, Nikolai lidia e 5-30 Route: PO, l 14:00: Drug form: Norris 00 DRC, Daily, Dosing Weight 81.091, kg, Start date: 02/12/19 9:00:00 CDT, Duration: 30 day, Stop date: 03/13/19 9:00:00 CDT Docusate No Notes: Memoria Sodium 100 5-30 (Same as: l MG Oral 14:00: Colace) Capsule (Do Not Crush) clopidogrel No Notes: Nikolai lidia 5-30 (Same As: l 14:00: Plavix) Simethicone No Notes: Nikolai lidia 5-30 (Same as: l 02:00: Mylicon) Ranitidine No 150 mg, 1 Me moria 150 MG Oral 5-30 cap, l Capsule 02:00: Route: PO, Herm taylor Drug form: CAP, Bedtime, Dosing Weight 81.091, kg, Start date: 02/11/19 21:00:00 CDT, Duration: 30 day, Stop date: 03/12/19 21:00:00 CDT Pravastatin No Notes: Nikolai lidia 5-30 (Same as: l 02:00: Pravachol) cefTRIAXone No Notes: Nikolai lidia + sterile 5-30 (Same As: l water 10 mL 02:00: Rocephin). Use with 100 mL NS and infuse over 30 min MEDICATION WASTE Product Size: 1000 mg Product Wasted: ___ mg azithromyci No Notes: Nikolai lidia n + Sodium 5-30 (Same As: l Chloride 00:00: Zithromax Herm taylor 0.9% IV 250 00 IV) mL Protonix No Notes: Memoria 5-29 Tablet l 21:30: should not [place] 00 be chewed or crushed. (Same as: Protonix) Calcium No Notes: Memoria Gluconate 02-11 WASTE: F/P l 20:04: - Sink; E [place] 00 - Municipal Trash Bin Magnesium No Notes: Memori a Oxide 02-11 (Same as: l 20:04: Mag-Ox [place] 00 400) Magnesium oxide [id number] g elemental magnesium Dose=____m g magnesium oxide (___mg elemental magnesium) Magnesium No Notes: Memori a Sulfate 02-11 WASTE: F/P l 20:04: - Sink; E [place] 00 - Municipal Trash Bin Potassium No Notes: Memori a Chloride - Infuse at l 20:04: a rate of [place] 00 10 mEq/hr. (Same as: KCL) sodium No Notes: Memoria phosphate - Infuse l 20:04: over 4 [place] 00 hour. Do not infuse phosphorou s concurrent ly in the same line as TPN or IVF that contains calcium. For double lumen central lines, phosphorou s may be infused in a separate lumen from TPN. potassium No Notes: Memori a phosphate -29 (Same as: l 20:04: K Phosphate. ) Do not infuse phosphorou s concurrent ly in the same line as TPN or IVF that contains calcium. For double lumen central lines, phosphorou s may be infused in a separate lumen from TPN. 1 mMol phoshate has 1.47 mEq potassium Infuse over 4 hours potassium No Notes: Memori a phosphate-s - (Same as: l odium 20:04: Phos-NaK) Norris phosphate 00 Each 1.5 250 mg-280 gm pkt has mg-160 mg 250mg oral powder phosphorou for s. Mix reconstitut w/2.5oz ion water and stir. Ranitidine Yes 150 mg = 1 M emoria 150 MG Oral 5-29 cap, PO, l Capsule 19:06: Bedtime, 0 Herm taylor Refill(s) Hydroxychlo Yes 200 mg = 1 Memoria roquine 5-29 tab, PO, l Sulfate 200 19:06: BID, 0 Herm taylor MG Oral 00 Refill(s) Tablet Docusate Yes 100 mg = 1 Mem oria Sodium 100 5-29 cap, PO, l MG Oral 19:06: Daily, [place] Capsule 00 bedtime, 0 Refill(s) montelukast Yes 10 mg = 1 M emoria 10 mg oral 5-29 tab, PO, l tablet 19:06: Daily, 0 [place] 00 Refill(s) lansoprazol Yes 30 mg = 1 M emoria e 30 mg 5-29 cap, PO, l oral 19:06: Daily, 0 [place] delayed 00 Refill(s) release capsule simethicone Yes 125 mg = 1 Memoria 125 mg oral 5-29 cap, PO, l capsule 19:06: Daily, [place] 00 bedtime, # 60 cap, 0 Refill(s) clopidogrel Yes 75 mg = 1 M emoria 75 mg oral 5-29 tab, PO, l tablet 19:06: Daily, # [place] 00 30 tab, 0 Refill(s) pravastatin Yes 20 mg = 1 M emoria 20 mg oral 5-29 tab, PO, l tablet 19:06: Bedtime, # Cassi nn 00 30 tab, 0 Refill(s) Acetaminoph No Notes: Nikolai lidia en 325 MG / 5-29 (Same as: l Hydrocodone 04:49: [place] Cassi nn Bitartrate 00 325/5) Do 5 MG Oral not exceed Tablet 4gm/day of [[place] acetaminop 5/325] hen. Ceftriaxone No 1 gm, Memor ia 02-11 Route: l 02:00: IVP, [place] [id number], kg, Start date: 02/10/19 21:00:00 CDT, Duration: 7 day, Stop date: 02/16/19 21:00:00 CDT, ABX Indication : Pneumonia Azithromyci No Notes: Nikolai lidia n 02-11 (Same As: l 02:00: Zithromax [place] IV) Dextrometho No Notes: Nikolai lidia rphan 02-11 (dextromet l Hydrobromid 01:15: horphan-gu Norris e 2 MG/ML / 00 aifenesin Guaifenesin 10-100mg/5 20 MG/ML ml 10 ml Oral oral SOLN Solution ud) (Same as: Robitussin DM) Acetaminoph No Notes: Do M emoria en 02-11 not exceed l 01:15: 4 gm/day. Norris 00 (Same as: Tylenol) Ondansetron No Notes: Nikolai lidia 02-11 (Same as: l 01:15: Zofran) [place] 00 MEDICATION WASTE Product Size: 4 mg Product Wasted: ___ mg NS (Bolus) No 500 mL, Nikolai lidia IV 02-10 500 ml/hr, l 23:56: Infuse [place] 00 Over: 1 hr, Route: IV, 500, Drug form: INJ, ONCE, Priority: STAT, kg, Start date: 02/10/19 18:56:00 CDT, Stop date: 02/10/19 18:56:00 CDT Azithromyci No Notes: Nikolai lidia n 02-10 (Same As: l 23:56: Zithromax [place] 00 IV) Ceftriaxone No Notes: Nikolai lidia 02-10 (Same As: l 23:55: Rocephin). Norris 00 Use with 100 mL NS and infuse over 30 min MEDICATION WASTE Product Size: 1000 mg Product Wasted: ___ mg Vital Signs Vital Name Observation Time Observation Value Comments Source Temperature Oral (F) 2019-02-13 16:43:00 97.5 F [facility] [place] Systolic (mm Hg) 2019-02-13 16:43:00 Nikolai rial [place] Diastolic (mm Hg) 2019-02-13 16:43:00 Mem orial [place] Respitory Rate 2019-02-13 16:43:00 Memori al [place] Heart Rate 2019-02-13 16:43:00 [facility] [place] Respitory Rate 2019-02-13 15:12:00 Memori al [place] Heart Rate 2019-02-13 12:35:00 [facility] [place] Temperature Oral (F) 2019-02-13 12:35:00 97.8 F [facility] [place] Systolic (mm Hg) 2019-02-13 12:35:00 Nikolai lidial [place] Diastolic (mm Hg) 2019-02-13 12:35:00 Mem orial [place] Respitory Rate 2019-02-13 12:35:00 Memori al [place] Heart Rate 2019-02-13 08:23:00 [facility] [place] Temperature Oral (F) 2019-02-13 08:23:00 97.8 F [facility] [place] Systolic (mm Hg) 2019-02-13 08:23:00 Nikolai rial [place] Diastolic (mm Hg) 2019-02-13 08:23:00 Mem orial [place] Height 2019-02-11 02:05:00 177.8 cm [facility] [place] Weight 2019-02-11 02:05:00 [facility] [place] BMI Calculated 2019-02-11 02:05:00 Kathy al [place] Weight 2019-02-11 01:45:00 [facility] [place] BMI Calculated 2019-02-11 01:45:00 Memori al [place] Height 2019-02-11 01:45:00 177.8 cm [facility] [place] Procedures Procedure Date / Time Performed Performing Clinician [facility] e Placement of stent in [facility] ermann cardiac conduit Encounters Start End Encounter Admission Attending Care Care Encounter Source Date/Time Date/Time Type Type Clinicians Facility Department ID 2019-02-10 Inpatient E [facility]BL MED [id number] MHB L 20:15:00 2019-08-18 2019-08-18 Outpatient [place], MHOIP MHOIP [id number] 11:44:00 23:59:00 Darinel 00 Eros 2019-04-11 2019-04-11 Outpatient [place], BERNICESE SE [id number] 12:39:00 23:59:00 Darinel 01 Eros 2019-04-11 2019-04-11 Outpatient MHSE PUL [id number] MH 12:39:00 12:39:00 [facility] 2019-02-10 2019-02-[address] [id number] 17:09:47 16:20:00 Peter 00 Results Test Description Test Time Test Comments Results Result Comments Source HEMATOLOGY 2019-02-12 14.0 [facility] 08:11:00 [place] HEMATOLOGY 2019-02-12 21.0 [facility] 08:11:00 [place] HEMATOLOGY 2019-02-12 0.4 [facility] 08:11:00 [place] HEMATOLOGY 2019-02-12 2.0 [facility] 08:11:00 [place] HEMATOLOGY 2019-02-12 Normal [facility] 08:11:00 (02/12/19 3:11 [place] AM) HEMATOLOGY 2019-02-12 65.0 [facility] 08:11:00 [place] HEMATOLOGY 2019-02-12 08:11:00 Test Item Value Reference Range Interpretation Comme nts Tot Cell Ct (test code = Tot Cell Ct) 100 1 [facility] FvifhdxDYDMUMNQJF4288-78-53 08:11:000.7[facility] HermannHEMATOLOGY 2019-02-12 08:11:00Normal (02/12/19 3:11 AM)[facility] IkmfsluCWZIBUJZXQ7086-16-20 08:11:008.6[facility] SkihzofOCQVAUZMZN5578-63-96 08:11:00 Test Item Value Reference Range Interpretation Comments MCH (test code = MCH) 36.5 pg 27.0-31.0 [facility] TynycklWDSQYZBLGQ4827-01-06 08:11:0033.9[facility] HermannHEMATOLOGY 2019-02-12 08:11:003.1[facility] MkyanbeDLWVQHCSZR2688-55-03 08:11:0010.6[facility] XstptvcRWJTDCLIER6887-71-62 08:11:0031.2[facility] MdqhkbzINYJPPXDNY9824-40-40 08:11:08495.7[facility] JgqgcrkRTONTOVOJT0906-14-54 08:11:0020.3[facility] [place] SUKNENOJRL6851-08-24 08:11:66202Wiwxpxgb YhuiyqbLONQYXOJYC9525-73-36 08:11:00 2.90[facility] HermannBODY BCQGFE4269-90-59 16:40:00Pleural *NA*(02/11/19 11:40 AM) [facility]annBODY IEVZUK2116-62-06 16:40:0073[facility]ann[facility] FLUIDS 2019-02-11 16:40:00Pleural *NA*(02/11/19 11:40 AM)[facility]ann[facility] FLUIDS 2019-02-11 16:40:004.1[facility] HermannBODY DXYBZU3213-48-06 16:40:00Pleural (02/11/19 11:40 AM)[facility]annBODY GSEVEK4982-04-03 16:40:74249Fxxxcjaq HermannBACTERIAL - JXDWVYLO4599-33-73 16:21:00Urine *NA*(02/11/19 11:21 AM) [facility]annBACTERIAL - JFSSIXWX6971-42-80 16:21:00Negative (02/11/19 11:21 AM)[facility]annBODY OOBUOZ1688-73-95 15:45:00Slight Cloudy (02/11/19 10:45 AM)[facility]annBODY IPJORC9934-81-95 15:45:99303Ogvqvknt HermannBODY FLUIDS 2019-02-11 15:45:0028[facility] HermannBODY FVDIFK9448-48-16 15:45:836145Lggtimtc HermannBODY MHOMBS5976-91-43 15:45:0051[facility]annBODY ULFNFQ5984-47-97 15:45:0021[facility]annBODY QOAHMA2624-73-43 15:45:00Pleural (02/11/19 10:45 AM)[facility]annBODY GUMMKI7210-83-27 15:45:00Yellow (02/11/19 10:45 AM) [facility]annCARDIAC GLUHBUM2657-75-76 15:45:00<0.02[facility] CARDIAC TFDAVBL5711-23-32 13:14:00<0.02[facility] HermannCARDIAC ENZYMES 2019-02-11 09:11:00<0.02[facility] HermannCHEM FAOSW3839-70-17 09:11:002.4 [facility]annCHEM IJYPE3774-57-43 09:11:002.1[facility] HermannCHEM PANEL 2019-02-11 09:11:000.45[facility] RosacqkVQAKWVPLOGUE1759-95-83 09:11:0023[facility] FypfugnNKAUFKKAELIJ0355-71-76 09:11:008.0[facility] MnoqnjgPFLIOTRFVGNQ5387-29-27 09:11:0014.4[facility] YviydmtZRLCZBWTRLJV2585-34-10 09:11:0094[facility] YRAXUTUAZTCA8259-98-32 09:11:0010[facility] IyyqxecHJYTWNTGHHPQ4176-14-65 09:11:00 0.71[facility] SvmrxniPXYOLWTIGXVL2477-66-16 09:11:36231Mfoibobi [place] VEGYAQIENUAH6313-64-24 09:11:003.4[facility] PktvkzqGADGGDOTFOII3407-85-34 09:11:96975Cminzctp GvrigaqWPBZFDQFZWXB2986-72-81 09:11:0083[facility] [place] MOLECULAR IOXFWUTFHF5937-30-85 03:37:00Nasophrngl Swb *NA*(02/10/19 10:37 PM) [facility] HermannMOLECULAR LSRTFXHZKY9484-64-47 03:37:00Negative (02/10/19 10:37 PM)[facility] HermannMOLECULAR LFPTMGOPZD4730-81-50 03:37:00Negative (02/10/19 10:37 PM)[facility] HermannMOLECULAR EYCFTEMGAL2460-89-23 03:37:00Negative (02/10/19 10:37 PM)[facility] HermannBACTERIAL - CWJKXPRV8638-55-77 00:18:00Urine *NA*(02/10/19 7:18 PM)[facility] HermannBACTERIAL - GTAKLJTO1897-81-80 00:18:00 Negative (02/10/19 7:18 PM)[facility]annURINE AND NHLFH4474-67-03 00:18:001 [facility]ann[facility] AND VGSDR0965-07-34 00:18:00Negative (02/10/19 7:18 PM) [facility] WSPMN8584-75-08 00:18:00Negative (02/10/19 7:18 PM) [facility] SSWCE8145-21-27 00:18:008[facility]ann[facility] AND URKDJ3162-48-35 00:18:00Negative *NA*(02/10/19 7:18 PM)[facility]ann[facility] AND LLIQL5497-85-90 00:18:00Negative (02/10/19 7:18 PM)[facility]ann[facility] AND AENDG6102-39-22 00:18:00Slight *ABN*(02/10/19 7:18 PM)[facility]ann[facility] AND ZMGED3118-85-83 00:18:00Amber *ABN*(02/10/19 7:18 PM)[facility]ann[facility] AND ZJKSH0706-18-47 00:18:00 Test Item Value Reference Range Interpretation Comments UA Spec Grav (test code = UA Spec 1.024 1 Grav) [facility]ann[facility] AND [id number] 00:18:00 Test Item Value Reference Range Interpretation Comments UA pH (test code = UA pH) 5.0 1 5.0-8.0 [facility]annCARDIAC SIRKRTU3293-13-31 23:01:0046[facility] HermannCHEM PANEL 2019-02-10 23:01:0086[facility] HermannCHEM DGGOD1830-51-82 23:01:0014[facility] HermannCHEM BHTPM6176-58-30 23:01:000.87[facility] HermannCHEM DYVTT0964-64-33 23:01:71342Moualovh HermannCHEM KGTTE1846-46-72 23:01:004.0[facility] HermannCHEM FUUYV1824-40-64 23:01:0025[facility] HermannCHEM ZSMPC1986-23-83 23:01:008.3 [facility] HermannCHEM ZMWOS0870-23-48 23:01:0097[facility] HermannCHEM PANEL 2019-02-10 23:01:0020[facility] HermannCHEM VYOMX1499-13-51 23:01:007.2[facility] HermannCHEM XZJLY8145-94-49 23:01:002.4[facility] HermannCHEM EQSIN6754-43-02 23:01:0019[facility] HermannCHEM CQHCH2640-84-91 23:01:000.8[facility] HermannCHEM JKHUN0957-88-35 23:01:0051[facility] HermannCHEM DOCIU6007-71-36 23:01:0099 [facility] HermannCHEM VQYZD3788-08-17 23:01:00 Test Item Value Reference Range Interpretation Comments A/G Ratio (test code = A/G Ratio) 0.5 1 0.7-1.6 [facility] HermannCHEM [id number] 23:01:004.8[facility] HermannCHEM PANEL 2019-02-10 23:01:00 Test Item Value Reference Range Interpretation Comments B/C Ratio (test code = B/C Ratio) 16 1 6-25 [facility] HermannCHEM CDBFY7130-51-27 23:01:0015.0[facility] HermannCHEM PANEL 2019-02-10 23:01:001.0[facility] CrnyywpBTVXUUZDAB8295-05-05 23:01:0011.3[facility] HbgcmbmLPRGSVUMFJ1291-13-04 23:01:004.4[facility] GkblepoSPJNPLMXUL8546-76-19 23:01:87467.0[facility] PtrulfzFVBPYSPSNX3304-59-39 23:01:0033.1[facility] [place] OBUHPXYCBS9129-09-77 23:01:003.10[facility] ZjbitgdTJWQNHKVQK8581-28-81 23:01:00 356[facility] BjupxxnGJSXAMFKTS3003-53-59 23:01:0034.1[facility] HermannHEMATOLOGY 2019-02-10 23:01:00 Test Item Value Reference Range Interpretation Comments MCH (test code = MCH) 36.5 pg 27.0-31.0 [facility] CsofobvTKBDYNXDQB8194-58-81 23:01:0021.0[facility] HermannHEMATOLOGY 2019-02-10 23:01:008.5[facility] XcfjlydFVGTMCDNVN4931-06-09 23:01:000.7[facility] LyhzohmSWBRZCROFV8547-81-20 23:01:000.5[facility] WbtzintYBIBMNMNKH8172-10-17 23:01:001+ *ABN*(02/10/19 6:01 PM)[facility] TfitolqQIHIAOHGYK9604-14-52 23:01:00 71.6[facility] WadksrvATWFWOGIXK2754-63-17 23:01:003.1[facility] HermannHEMATOLOGY 2019-02-10 23:01:000.4[facility] SatqpyuNBAKETUIBY6450-56-00 23:01:000.1[facility] XynhyjoNYQRSMHJDO2756-28-58 23:01:0011.6[facility] GeolzlxXTFWDEYSXE2710-53-85 23:01:0016.3[facility] [place]
[2020-07-06] MEDS ORDERED: HYDROCODONE/APAP 5/325 MG TAB ONE (17:10)
--- NOTE | 2020-07-06 17:55 | EDPHYS ---
Physician Documentation [facility] Name: Michael Grant Age: 74 yrs Sex: Male : 1945 Arrival Date: 07/06/2020 Time: 16:07 Bed 18 Private MD: Dior Do H ED Physician Merrill Fine HPI: 07/06 16:53 This 74 yrs old Male presents to ER via Wheelchair with complaints of Ear jmm Problem. 16:53 Onset: The symptoms/episode began/occurred today. Associated signs and symptoms: jmm Pertinent positives: bleeding. This is a 74 year old male with a history of DM that presents to the ED with bleeding to the right external ear. patient is s/p biopsy. Patient takes plavix. Unable to control bleeding at home. . Historical: - Allergies: 16:29 No Known Allergies; ca1 - Home Meds: 16:29 lansoprazole 30 mg Oral cpDR 1 cap once daily [Active]; hydroxychloroquine 200 mg Oral ca1 tab 1 tab once daily [Active]; pravastatin 20 mg oral tab [Active]; Pepcid AC Oral [Active]; Plavix 75 mg Oral tab 1 tab once daily [Active]; sucralfate 1 gram Oral tab 1 tab 2 times per day [Active]; montelukast 10 mg Oral tab 1 tab once daily [Active]; azathioprine 50 mg Oral tab 1 tab 2 times per day [Active]; aspirin 81 mg Oral chew 1 tab once daily [Active]; - PMHx: 16:29 Diabetes - NIDDM; GERD; Headaches; High Cholesterol; Myocardial infarction; Rheumatoid ca1 Arthritis; - PSHx: 16:29 Heart stents; ca1 - Immunization history:: Adult Immunizations up to date, Pneumococcal vaccine is up to date, Flu vaccine is up to date. - Social history:: Smoking status: Patient denies any tobacco usage or history of. ROS: 16:53 Constitutional: Negative for fever, chills, and weight loss. jmm 16:53 Cardiovascular: Negative for chest pain, palpitations, and edema, Respiratory: Negative for shortness of breath, cough, wheezing, and pleuritic chest pain, Neuro: Negative for headache, weakness, numbness, tingling, and seizure. 16:53 ENT: Positive for bleeding. 16:53 All other systems are negative. Exam: 16:53 Constitutional: This is a well developed, well nourished patient who is awake, alert, jmm and in no acute distress. Head/Face: atraumatic. Eyes: EOMI, no conjunctival erythema appreciated 16:53 Neck: Trachea midline, Supple Chest/axilla: Normal chest wall appearance and motion. Cardiovascular: Regular rate and rhythm. No edema appreciated Respiratory: Normal respirations, no respiratory distress appreciated Abdomen/GI: Non distended, soft Back: Normal ROM Skin: General appearance color normal MS/ Extremity: Moves all extremities, no obvious deformities appreciated, no edema noted to the lower extremities Neuro: Awake and alert, normal gait Psych: Behavior is normal, Mood is normal, Patient is cooperative and pleasant 16:53 ENT: mild bleeding noted to the external ear. no pulsatile bleeding appreciated. Vital Signs: 16:23 BP 121 / 67; Pulse 59; Resp 15 A; Temp 99.2(TE); Pulse Ox 100% on R/A; Weight 81.65 kg ca1 (R); Height 5 ft. 10 in. (177.80 cm); Pain 0/10; 17:30 BP 101 / 56; Pulse 53; Resp 16; Pulse Ox 100% ; bp 18:20 BP 107 / 61; Pulse 57; Resp 16; Temp 98; Pulse Ox 100% ; bp 16:23 Body Mass Index 25.83 (81.65 kg, 177.80 cm) ca1 MDM: 16:39 [facility] medically screened. [facility] 17:51 Data reviewed: vital signs, nurses notes. Counseling: I had a detailed discussion with [facility] the patient and/or guardian regarding: the historical points, exam findings, and any diagnostic results supporting the discharge/admit diagnosis, the need for outpatient follow up, to return to the emergency department if symptoms worsen or persist or if there are any questions or concerns that arise at home. ED course: Bleeding resolved. Patient will follow up with surgery tomorrow for reevaluation. Patient otherwise given strict return precautions. Patient understood and agrees with the plan of care. . 07/06 16:32 Order name: Wound Care; Complete Time: 16:46 [facility] Administered Medications: 16:50 Drug: [place] 5 mg-325 mg 1 tabs Route: PO; bp 18:23 Follow up: Response: Pain is decreased bp Disposition: 07/07 10:55 Co-signature as Attending Physician, Merrill Fine MD I agree with the assessment and [facility] plan of care. Disposition: 07/06/20 17:54 Discharged to Home. Impression: Post Surgical Bleeding - Resolved. - Condition is Stable. - Medication Reconciliation Form, Thank You Letter, Antibiotic Education, Prescription Opioid Use form. - Follow up: Private Physician; When: 2 - 3 days; Reason: Recheck today's complaints, Continuance of care, Re-evaluation by your physician. Signatures: Merrill Fine MD MD cha Mickail, Joel, PA PA jmm Peltier, Brian, RN RN bp Madison Strauss RN RN ca1 Corrections: (The following items were deleted from the chart) 07/06 18:23 17:54 07/06/2020 17:54 Discharged to Home. Impression: Post Surgical Bleeding - bp Resolved. Condition is Stable. Forms are Medication Reconciliation Form, Thank You Letter, Antibiotic Education, Prescription Opioid Use. Follow up: Private Physician; When: 2 - 3 days; Reason: Recheck today's complaints, Continuance of care, Re-evaluation by your physician. ji
--- NOTE | 2020-07-06 17:55 | ER ---
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 30 mins CELL CHANGER while sitting on a recliner, the surgical site started bleeding and has stopped since. Pressure applied, bleeding controlled. Denies pain. Pt is on Clopidogrel and ASA. Coronavirus screen: Client denies travel out of the [place] in the last 14 days. At this time, the client does not indicate any symptoms associated with coronavirus-19. The client denies any previous COVID testing. Ebola Screen: Patient negative for fever greater than or equal to 101.5 degrees Fahrenheit, and additional compatible Ebola Virus Disease symptoms Patient denies exposure to infectious person. Patient denies travel to an Ebola-affected area in the 21 days before illness onset. No symptoms or risks identified at this time. Initial Sepsis Screen: Does the patient meet any 2 criteria? No. Patient's initial sepsis screen is negative. Does the patient have a suspected source of infection? No. Patient's initial sepsis screen is negative. Risk Assessment: Do you want to hurt yourself or someone else? Patient reports no desire to harm self or others. Onset of symptoms was July 06, 2020. 16:23 Method Of Arrival: Wheelchair ca1 16:23 Acuity: LEIF 4 ca1 Triage Assessment: 16:30 General: Appears in no apparent distress. uncomfortable, slender, Behavior is bp cooperative, appropriate for age, anxious. Pain: Complains of pain in right ear. EENT: R EAR BLEEDING SURGICAL WOUND. Neuro: No deficits noted. Cardiovascular: No deficits noted. Respiratory: No deficits noted. GI: No signs and/or symptoms were reported involving the gastrointestinal system. : No signs and/or symptoms were reported regarding the genitourinary system. Derm: No deficits noted. Musculoskeletal: No deficits noted. Historical: - Allergies: 16:29 No Known Allergies; ca1 - Home Meds: 16:29 lansoprazole 30 mg Oral cpDR 1 cap once daily [Active]; hydroxychloroquine 200 mg Oral ca1 tab 1 tab once daily [Active]; pravastatin 20 mg oral tab [Active]; Pepcid AC Oral [Active]; Plavix 75 mg Oral tab 1 tab once daily [Active]; sucralfate 1 gram Oral tab 1 tab 2 times per day [Active]; montelukast 10 mg Oral tab 1 tab once daily [Active]; azathioprine 50 mg Oral tab 1 tab 2 times per day [Active]; aspirin 81 mg Oral chew 1 tab once daily [Active]; - PMHx: 16:29 Diabetes - NIDDM; GERD; Headaches; High Cholesterol; Myocardial infarction; Rheumatoid ca1 Arthritis; - PSHx: 16:29 Heart stents; ca1 - Immunization history:: Adult Immunizations up to date, Pneumococcal vaccine is up to date, Flu vaccine is up to date. - Social history:: Smoking status: Patient denies any tobacco usage or history of. Screenin:30 Abuse screen: Denies threats or abuse. Denies injuries from another. Nutritional bp screening: No deficits noted. Tuberculosis screening: No symptoms or risk factors identified. Fall Risk None identified. Assessment: 16:30 General: SEE TRIAGE NOTE. Pain: Denies pain. Injury Description: SURGICAL R EAR WOUND, bp ACTIVELY BLEEDING. 17:00 Reassessment: COMPRESSION DRESSING IN PLACE TO CONTROL BLEEDING. bp 17:30 Reassessment: BLEEDING APPEARS CONTROLLED, PROVIDER NOTIFIED. bp 18:15 Reassessment: PT D/C HOME AMBULATORY WITH FAMILY, DX WITH POST-SURGICAL BLEEDING. bp Vital Signs: 16:23 BP 121 / 67; Pulse 59; Resp 15 A; Temp 99.2(TE); Pulse Ox 100% on R/A; Weight 81.65 kg ca1 (R); Height 5 ft. 10 in. (177.80 cm); Pain 0/10; 17:30 BP 101 / 56; Pulse 53; Resp 16; Pulse Ox 100% ; bp 18:20 BP 107 / 61; Pulse 57; Resp 16; Temp 98; Pulse Ox 100% ; bp 16:23 Body Mass Index 25.83 (81.65 kg, 177.80 cm) ca1 ED Course: 16:07 Patient arrived in ED. ag5 16:07 Do, Aileen-Melvin, DO is Private Physician. ag5 16:26 Triage completed. ca1 16:29 Arm band placed on right wrist. ca1 16:30 Kevin Hu PA is PHCP. [facility] 16:30 Merrill Fine MD is Attending Physician. [facility] 16:30 Patient has correct armband on for positive identification. Bed in low position. Call bp light in reach. Side rails up X2. Adult w/ patient. 16:32 Roc Weiner, RN is Primary Nurse. bp 17:30 Wound care: to SURGICAL located on right ear was dressed with 4X4s, Patient tolerated bp well. 18:21 No provider procedures requiring assistance completed. Patient did not have IV access bp during this emergency room visit. Administered Medications: 16:50 Drug: [place] 5 mg-325 mg 1 tabs Route: PO; bp 18:23 Follow up: Response: Pain is decreased bp Outcome: 17:54 Discharge ordered by . [facility] 18:22 Discharged to home ambulatory. bp 18:22 Condition: stable 18:22 Discharge instructions given to patient, Instructed on discharge instructions, follow up and referral plans. Demonstrated understanding of instructions, follow-up care. 18:23 Patient left the ED. 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 30 mins CELL CHANGER while sitting on a recliner, the surgical site started bleeding and has stopped since. Denies pain. Pt is on Clopidogrel and ASA ca1
[2020-07-06 18:34] VITALS: O2SAT 100
[2020-07-06 18:37] VITALS: BP 107/61; TEMP 98
== END 2020-07-06 18:23 | disposition home or self-care (01) ==
LOC: ER 16:06
DX: L76.22 Postprocedural hemorrhage of skin and subcutaneous tissue following other procedure (principal); E78.00 Pure hypercholesterolemia, unspecified; E11.9 Type 2 diabetes mellitus without complications; I25.2 Old myocardial infarction; Z79.01 Long term (current) use of anticoagulants; Z79.82 Long term (current) use of aspirin; Z95.818 Presence of other cardiac implants and grafts
CPT/HCPCS: 99283

== ENCOUNTER 2021-12-15 14:16 | Emergency (ER) | payer OTHER ==
--- OUTSIDE RECORDS SUMMARY | 2021-12-15 15:55 | XMS REPORT | Continuity of Care Document ---
:1945 Author Organization [facility] t Address [address] [place] [address] [address]. [address] [place] [address] Care Team Providers Name Role Phone Ernestina_Frank Attending Clinician Unavailable SRINIVAS LUNA Attending Clinician Unavailable ORTEGA Attending Clinician Unavailable SERA Attending Clinician Unavailable MD Kingston ZAMORA Attending Clinician Unavailable Ernestina_Frank_ALEC Attending Clinician Unavailable Ernestina_Frank Admitting Clinician Unavailable SERA Admitting Clinician Unavailable MD [place] ZAMORA Admitting Clinician Unavailable Bui_Frank_ALEC Admitting Clinician Unavailable Problems This patient has no known problems. Allergies, Adverse Reactions, Alerts This patient has no known allergies or adverse reactions. Medications This patient has no known medications. Procedures This patient has no known procedures. Encounters Start End Encounter Admission Attending Care Care Encounter Source Date/Time Date/Time Type Type Clinicians Facility Department ID 2019-02-10 Inpatient E [facility] MED [id number] [facility] 20:15:00 2021-09-23 2021-09-23 Outpatient Bui_Q VFP [facility] [id number] [facility] 07:01:00 07:01:00 Family Practic e 2021-07-14 2021-07-14 Outpatient CHERYL [facility] PUL [id number] [facility] 12:11:00 23:59:00 ROBY 2021-05-01 2021-05-01 Emergency E KVNG [facility] [id number] [facility] 11:29:00 14:34:00 JACY NIXON 2021-01-24 2021-01-25 Outpatient SERA [facility] [id number] [place] 00:00:00 00:00:00 GRACIA [facility] 2021-01-04 2021-01-05 Outpatient SERA, [facility] [id number] [place] 00:00:00 00:00:00 GRACIA [address] 2020-12-30 2020-12-30 Outpatient SERA, [facility] [id number] [place] 00:00:00 00:00:00 GRACIA [address] 2020-12-20 2020-12-20 Outpatient SERA, [facility] [id number] [place] 00:00:00 00:00:00 GRACIA [address] 2020-12-13 2020-12-13 Outpatient SERA, [facility] [id number] [place] 00:00:00 00:00:00 GRACIA [address] 2020-12-13 2020-12-13 Outpatient SERA, [facility] [id number] [place] 00:00:00 00:00:00 GRACIA [address] 2020-12-06 2020-12-06 Outpatient Bui_Q_WAG VFP VFP [id number] 10:32:00 10:32:00 [id number] Family Practic e 2020-12-01 2020-12-01 Outpatient SERA, [facility] [id number] [place] 00:00:00 00:00:00 GRACIA [address] 2020-11-29 2020-11-29 Outpatient SERA, [facility] [id number] [place] 00:00:00 00:00:00 GRACIA [address] 2019-04-11 2019-04-11 Outpatient [facility] PUL [id number] 12:39:00 12:39:00 [facility] Results Test Description Test Time Test Comments Results Result Comments Source SARS-CoV-2 (COVID-19) RNA [Presence] in Respiratory sp ecimen by 2020-12-31 00:02:00 MARIO with probe detection Test Item Value Reference Range Interpretation Comme nts SARS-CoV-2 (COVID-19) RNA [Presence] in Respiratory Not detected No t-Detected specimen by MARIO with probe detection (test code = 73474-5)
[2021-12-15 17:10] LABS: Absolute Lymphocytes (CBC) 0.6 K/uL (0.7-4.9); Hematocrit 27.5 % (39.6-49.0); Lymphocytes % 29.4 % (15.3-44.8); MPV 10.2 fL (7.6-11.3); Protime INR 1.36; RBC Red Blood Cell Count 2.51 M/uL (4.33-5.43)
[2021-12-15 17:21] LABS: Albumin 3.3 g/dL (3.4-5.0); Bilirubin Direct 0.2 mg/dL (0-0.2); Bilirubin Total 0.4 mg/dL (0.2-1.0); Magnesium 2.3 mg/dL (1.8-2.4); Potassium 4.1 mmol/L (3.5-5.1); Protein, Total 7.4 g/dL (6.4-8.2)
[2021-12-15 17:24] LABS: Troponin High Sensitivity 5.1 pg/mL (<58.9)
--- NOTE | 2021-12-15 17:55 | RAD REPORT ---
EXAM DESCRIPTION: CT - Head Brain Wo Cont - 12/15/2021 5:44 pm CLINICAL HISTORY: WEAKNESS COMPARISON: Head Brain Wo Cont dated 10/24/2018 TECHNIQUE: Axial 5 mm thick images of the head were obtained without IV contrast. All CT scans are performed using dose optimization technique as appropriate and may include automated exposure control or mA/KV adjustment according to patient size. FINDINGS: No intracranial hemorrhage, mass, edema or shift of mid-line structures. No cortical level acute infarction. No cortical edema or sulcal effacement. Atrophy changes are mild with ventricles i n proportion. Chronic ischemic changes are also minimal. Arterial tree calcifications are present. No abnormal extra-axial fluid collections. Intracranial findings are not significantly different from 2018 comparison. Mastoid air cells and visualized portions of the paranasal sinuses are clear. No acute bony findings. IMPRESSION: Negative non-contrast CT head examination for acute finding. Above detailed findings are similar to the October 2018 study.
--- NOTE | 2021-12-15 17:59 | RAD REPORT ---
EXAM DESCRIPTION: CT - Abdomen Pelvis W Contrast - 12/15/2021 5:46 pm CLINICAL HISTORY: ABD PAIN COMPARISON: Abdomen Pelvis W Contrast dated 02/09/2018 TECHNIQUE: Biphasic, helical CT imaging of the abdomen and pelvis was performed following 100 ml non -ionic IV contrast. No oral contrast administered. All CT scans are performed using dose optimization technique as appropriate and may include automated exposure control or mA/KV adjustment according to patient size. FINDINGS: No suspicious findings in the lung bases. The liver, spleen, and pancreas show no suspicious findings. Gallbladder and biliary tree are also wi thout suspicious finding. Gallstones can be occult on CT imaging. Symmetric renal function is seen with no hydronephrosis or suspicious renal mass. No pyelonephritis o r acute parenchymal process. No bladder abnormalities. No adrenal abnormalities. No stomach or small bowel acute finding. Moderate stool volume is present filling but not dilating th e entirety of the colon. There are no appendicitis findings. Tortuous sigmoid colon shows moderate di verticulosis. No diverticulitis findings. No free air, free fluid or inflammatory stranding. No mass or bulky lymphadenopathy. Right inguina l fat only hernia seen. No suspicious bony findings. Disc and bone degenerative changes are present. IMPRESSION: Contrast enhanced CT abdomen and pelvis showing no acute or emergent finding. Nonacute findings are detailed in the body of the report and not significantly different from January imaging.
[2021-12-15 18:15] LABS: Blood Morphology Comment NOTED (NOT SEEN); Macrocytosis 1+; Platelet Estimate DECR
[2021-12-15 18:41] LABS: Urine Blood Trace-intact (Negative); Urine Glucose Negative (Negative); Urine Protein Negative (Negative)
[2021-12-15 19:18] LABS: Urine Bacteria <20 /HPF (NONE SEEN)
--- NOTE | 2021-12-15 19:23 | EDPHYS ---
Physician Documentation [facility] Name: Michael Grant Age: 76 yrs Sex: Male : 1945 Arrival Date: 12/15/2021 Time: 14:17 Bed 16 Private MD: Dior Do H ED Physician Jose Antonio Salas HPI: 12/15 16:30 This 76 yrs old Male presents to ER via Ambulatory with complaints of General Weakness. cp 16:30 The patient's problem is reported as weakness, that is generalized. cp 16:30 Onset: The symptoms/episode began/occurred this morning. Duration: This was a single cp incident. Context: symptoms became apparent upon waking, Possible contributing factors include: history of anemia. Associated signs and symptoms: Pertinent negatives: abdominal pain, chest pain, confusion, diarrhea, headache, shortness of breath, vomiting. Patient's baseline: Neuro: alert and fully oriented, Motor: no deficits, Ambulation: walks without assistance, Speech: normal. 16:30 Spouse reports patient with history of anemia and has been taking oral iron. Reports cp having hemoglobin checked couple weeks ago that returned at 9. Historical: - Allergies: 14:44 No Known Allergies; ab2 - PMHx: 14:44 Diabetes - NIDDM; GERD; Headaches; High Cholesterol; Myocardial infarction; Rheumatoid ab2 Arthritis; Anemia; - Immunization history:: Adult Immunizations up to date. - Social history:: Smoking status: Patient denies any tobacco usage or history of. ROS: 16:35 Constitutional: Negative for body aches, chills, fever, poor PO intake. cp 16:35 Cardiovascular: Negative for chest pain, edema, palpitations. cp 16:35 Eyes: Negative for injury, pain, redness, and discharge. cp 16:35 ENT: Negative for drainage from ear(s), ear pain, sore throat, difficulty swallowing, difficulty handling secretions. 16:35 Respiratory: Negative for cough, shortness of breath, wheezing. 16:35 Abdomen/GI: Positive for abdominal pain, Negative for nausea, vomiting, and diarrhea, constipation. 16:35 Back: Negative for pain at rest, pain with movement. 16:35 Neuro: Positive for weakness, Negative for altered mental status, headache, loss of consciousness, syncope. 16:35 All other systems are negative. Exam: 16:40 ECG was reviewed by the Attending Physician. cp 16:42 Constitutional: The patient appears in no acute distress, alert, awake, cp non-diaphoretic, non-toxic, well developed, well nourished. 16:42 Head/Face: Normocephalic, atraumatic. cp 16:42 Eyes: Periorbital structures: appear normal, Pupils: equal, round, and reactive to light and accomodation, Extraocular movements: intact throughout, Conjunctiva: normal, no exudate, no injection, Sclera: no appreciated abnormality, Lids and lashes: appear normal, bilaterally. 16:42 ENT: External ear(s): are unremarkable, Nose: is normal, Mouth: Lips: moist, Oral mucosa: moist, Posterior pharynx: Airway: no evidence of obstruction, patent. 16:42 Neck: ROM/movement: is normal, is supple, without pain, no range of motions limitations. 16:42 Chest/axilla: Inspection: normal, Palpation: is normal, no crepitus, no tenderness. 16:42 Cardiovascular: Rate: normal, Rhythm: regular, Edema: is not appreciated, JVD: is not appreciated. 16:42 Respiratory: the patient does not display signs of respiratory distress, Respirations: normal, no use of accessory muscles, no retractions, labored breathing, is not present, Breath sounds: are clear throughout, no decreased breath sounds, no stridor, no wheezing. 16:42 Abdomen/GI: Inspection: abdomen appears normal, Bowel sounds: active, all quadrants, Palpation: soft, in all quadrants, mild abdominal tenderness, in the right lower quadrant, rebound tenderness, is not appreciated, involuntary guarding, is not appreciated. 16:42 Back: CVA tenderness, is absent. 16:42 Skin: cellulitis, is not appreciated, no rash present. 16:42 Neuro: Orientation: to person, place \T\ time. Mentation: able to follow commands, Motor: moves all fours, strength is normal, Sensation: is normal. 18:11 Radiologist reports: no acute findings cp 18:30 : Rectal exam: Stool: brown, Guaiac testing: results were negative for occult blood. cp Vital Signs: 14:42 BP 112 / 66; Pulse 63; Resp 18; Temp 98.5(TE); Pulse Ox 98% on R/A; Weight 77.11 kg; ab2 Height 5 ft. 9 in. (175.26 cm); Pain 4/10; 17:30 BP 100 / 59; Pulse 51; Resp 15; Pulse Ox 100% on R/A; vg1 19:29 BP 123 / 60; Pulse 50; Resp 18; Temp 98.5; Pulse Ox 99% on R/A; Pain 0/10; bhargav 14:42 Body Mass Index 25.10 (77.11 kg, 175.26 cm) ab2 MDM: 16:28 Patient medically screened. cp 19:22 Data reviewed: vital signs, nurses notes, lab test result(s), EKG, radiologic studies, cp CT scan, plain films. 19:22 Differential diagnosis: CVA, TIA, metabolic disorder, drug effects, GI bleed, anemia, cp cardiac arrythmia, UTI. Counseling: I had a detailed discussion with the patient and/or guardian regarding: the historical points, exam findings, and any diagnostic results supporting the discharge/admit diagnosis, lab results, radiology results, to return to the emergency department if symptoms worsen or persist or if there are any questions or concerns that arise at home. Response to treatment: the patient's symptoms have mildly improved after treatment, and as a result, I will discharge patient. 12/15 16:27 Order name: Basic Metabolic Panel; Complete Time: 17:41 cp 12/15 18:12 Interpretation: Normal except: GLUC 114; GFR 86; CA 8.4. cp 12/15 16:27 Order name: CBC with Diff; Complete Time: 18:25 cp 12/15 17:47 Interpretation: Normal except: WBC 2.0; RBC 2.51; HGB 9.2; HCT 27.5; MCV 109.5; MCH cp 36.7; PLT 118; RDW 17.4; MN% 21.9; NEUT A 0.9; LYMA 0.6. 12/15 16:27 Order name: LFT's; Complete Time: 17:41 cp 12/15 16:27 Order name: Magnesium; Complete Time: 17:41 cp 12/15 16:27 Order name: NT PRO-BNP; Complete Time: 17:41 cp 12/15 19:01 Interpretation: Abnormal: NT PRO-BNP 621. cp 12/15 16:27 Order name: PT-INR; Complete Time: 17:41 cp 04/ 16:27 Order name: Troponin HS; Complete Time: 17:41 cp 12/15 16:27 Order name: XRAY Chest (1 view) cp 12/15 16:27 Order name: CT Head Brain wo Cont; Complete Time: 18:11 cp / 16:27 Order name: CT Abd/Pelvis - IV Contrast Only; Complete Time: 18:11 cp 12/15 16:27 Order name: Type And Screen; Complete Time: 19:01 cp 12/15 16:27 Order name: Urine Microscopic Only; Complete Time: 19:21 cp 12/15 19:21 Interpretation: Reviewed. cp 12/15 18:16 Order name: Manual Differential; Complete Time: 18:25 EDMS 12/15 18:25 Interpretation: Normal except: MONO 14. cp / 18:41 Order name: Urine Dipstick-Ancillary; Complete Time: 19:01 EDMS 12/15 19:01 Interpretation: Normal except: UBLD Trace-intact. cp / 16:17 Order name: Orthostatics cp 12/15 16:27 Order name: EKG; Complete Time: 16:28 cp 12/15 16:27 Order name: Cardiac monitoring; Complete Time: 16:39 cp 12/15 16:27 Order name: EKG - Nurse/Tech; Complete Time: 16:39 cp 12/15 16:27 Order name: IV Saline Lock; Complete Time: 16:55 cp 12/15 16:27 Order name: Labs collected and sent; Complete Time: 16:55 cp 12/15 16:27 Order name: O2 Per Protocol; Complete Time: 16:28 cp 12/15 16:27 Order name: O2 Sat Monitoring; Complete Time: 16:28 cp 12/15 16:27 Order name: Urine Dipstick-Ancillary (obtain specimen); Complete Time: 19:18 cp EC:40 Rate is 49 beats/min. Rhythm is regular. ND interval is normal. QRS interval is cp prolonged at 106 msec. QT interval is normal. T waves are Inverted in lead aVR. Interpreted by me. Reviewed by me. Administered Medications: 19:39 Not Given (pt dc'd homee): NS 0.9% 250 ml IV at bolus once bhargav Disposition: 12/16 09:00 Co-signature as Attending Physician, Jose Antonio Salas MD. rn Disposition Summary: 12/15/21 19:22 Discharge Ordered Location: Home cp Problem: new cp Symptoms: have improved cp Condition: Stable cp Diagnosis - Muscle weakness (generalized) cp Followup: cp - With: Dior Do DO - When: 2 - 3 days - Reason: Recheck today's complaints Discharge Instructions: - Discharge Summary Sheet cp - Weakness cp Forms: - Medication Reconciliation Form cp - Thank You Letter cp - Antibiotic Education cp - Prescription Opioid Use cp Signatures: Dispatcher [employer] EDJose Antonio Eastman MD MD rn Merrill Mcgarry PA PA cp O'Farrell, Brenda, RN RN Jesus Alberto Bah
--- NOTE | 2021-12-15 19:23 | ER ---
Nurse's Notes [facility] Name: Michael Grant Age: 76 yrs Sex: Male : 1945 Arrival Date: 12/15/2021 Time: 14:17 Bed 16 Private MD: Dior Do H Diagnosis: Muscle weakness (generalized) Presentation: 12/15 14:42 Chief complaint: Patient states: "Im really weak and I have a history of anemia and it ab2 worried me because I couldn't get out of bed this morning." Pt denies n/v/d, chest pain or SOB. Pt c/o abdominal pain. Coronavirus screen: Vaccine status: Patient reports receiving the 2nd dose of the covid vaccine. Client denies travel out of the [place] in the last 14 days. At this time, the client does not indicate any symptoms associated with coronavirus-19. Ebola Screen: Patient negative for fever greater than or equal to 101.5 degrees Fahrenheit, and additional compatible Ebola Virus Disease symptoms Patient denies exposure to infectious person. Patient denies travel to an Ebola-affected area in the 21 days before illness onset. No symptoms or risks identified at this time. Initial Sepsis Screen: Does the patient meet any 2 criteria? No. Patient's initial sepsis screen is negative. Does the patient have a suspected source of infection? No. Patient's initial sepsis screen is negative. Risk Assessment: Do you want to hurt yourself or someone else? Patient reports no desire to harm self or others. Onset of symptoms is unknown. 14:42 Method Of Arrival: Ambulatory ab2 14:42 Acuity: LEIF 3 ab2 Triage Assessment: 14:46 General: Appears in no apparent distress. comfortable, Behavior is calm, cooperative, ab2 appropriate for age. Pain: Complains of pain in abdomen Pain does not radiate. Pain currently is 4 out of 10 on a pain scale. Neuro: Level of Consciousness is awake, alert, obeys commands, Oriented to person, place, time, situation, Appropriate for age Director Medicaid are equal bilaterally Weakness Gait is steady. Cardiovascular: No deficits noted. Denies chest pain, shortness of breath, Patient's skin is warm and dry. Respiratory: Airway is patent Respiratory effort is even, unlabored, Respiratory pattern is regular, symmetrical. GI: Reports lower abdominal pain, upper abdominal pain. Musculoskeletal: Reports weakness in whole body. Historical: - Allergies: 14:44 No Known Allergies; ab2 - PMHx: 14:44 Diabetes - NIDDM; GERD; Headaches; High Cholesterol; Myocardial infarction; Rheumatoid ab2 Arthritis; Anemia; - Immunization history:: Adult Immunizations up to date. - Social history:: Smoking status: Patient denies any tobacco usage or history of. Screenin:57 Abuse screen: Denies threats or abuse. Nutritional screening: No deficits noted. vg1 Tuberculosis screening: No symptoms or risk factors identified. Fall Risk No fall in past 12 months (0 pts). No secondary diagnosis (0 pts). IV access (20 points). Ambulatory Aid- None/Bed Rest/Nurse Assist (0 pts). Gait- Normal/Bed Rest/Wheelchair (0 pts) Mental Status- Oriented to own ability (0 pts). Total Fry Fall Scale indicates No Risk (0-24 pts). Assessment: 16:25 General: Appears in no apparent distress. comfortable, Behavior is calm, cooperative. vg1 Pain: Denies pain. Neuro: Reports weakness Denies headache. Cardiovascular: Patient's skin is warm and dry. Respiratory: Airway is patent Respiratory effort is even, unlabored. GI: Patient currently denies diarrhea, nausea, vomiting. : No signs and/or symptoms were reported regarding the genitourinary system. EENT: No signs and/or symptoms were reported regarding the EENT system. Derm: Skin is intact, Skin is pale. Musculoskeletal: Circulation, motion, and sensation intact. 18:36 Reassessment: Patient appears in no apparent distress at this time. No changes from vg1 previously documented assessment. Patient and/or family updated on plan of care and expected duration. Pain level reassessed. Patient is alert, oriented x 3, equal unlabored respirations, skin warm/dry/pink. Vital Signs: 14:42 BP 112 / 66; Pulse 63; Resp 18; Temp 98.5(TE); Pulse Ox 98% on R/A; Weight 77.11 kg; ab2 Height 5 ft. 9 in. (175.26 cm); Pain 4/10; 17:30 BP 100 / 59; Pulse 51; Resp 15; Pulse Ox 100% on R/A; vg1 19:29 BP 123 / 60; Pulse 50; Resp 18; Temp 98.5; Pulse Ox 99% on R/A; Pain 0/10; bhargav 14:42 Body Mass Index 25.10 (77.11 kg, 175.26 cm) ab2 ED Course: 14:17 Patient arrived in ED. am2 14:18 Dior Do DO is Private Physician. am2 14:44 Triage completed. ab2 14:46 Arm band placed on right wrist. ab2 16:16 Merrill Mcgarry PA is PHCP. cp 16:16 Jose Antonio Salas MD is Attending Physician. cp 16:21 [place] Perdomo, RN is Primary Nurse. vg1 16:55 Initial lab(s) drawn, by ED staff, sent to lab. Inserted saline lock: 20 gauge in left vg1 forearm, using aseptic technique. ,using aseptic technique. completed by Zoe Student Nurse White Mixing Operator Blood collected. 16:57 Patient has correct armband on for positive identification. Placed in gown. Bed in low vg1 position. Call light in reach. Side rails up X 1. Adult w/ patient. 16:57 No provider procedures requiring assistance completed. vg1 17:46 CT Head Brain wo Cont In Process Unspecified. EDMS 17:47 CT Abd/Pelvis - IV Contrast Only In Process Unspecified. EDMS 18:59 XRAY Chest (1 view) In Process Unspecified. EDMS 19:21 Report given to Irma MCKEON. vg1 19:22 Dior Do DO is Referral Physician. cp 19:39 intact, bleeding controlled, No redness/swelling at site. Pressure dressing applied. bhargav Administered Medications: 19:39 Not Given (pt dc'd homee): NS 0.9% 250 ml IV at bolus once bhargav Outcome: 19:22 Discharge ordered by MD. cp 19:38 Condition: stable bhargav 19:38 Discharged to home ambulatory, with family. bhargav 19:38 Discharge instructions given to patient, Instructed on discharge instructions, follow up and referral plans. Demonstrated understanding of instructions, follow-up care. 20:06 Patient left the ED. bhargav Signatures: Dispatcher [employer] EDMS Merrill Mcgarry PA PA Chloe Lizama am2 [place] Perdomo RN RN vg1 Irma Alejo RN RN bo Bleininger, Alexis ab2 Corrections: (The following items were deleted from the chart) 14:46 14:42 Chief complaint: Patient states: "Im really weak and I have a history of anemia ab2 and it worried me because I couldn't get out of bed this morning." Pt denies n/v/d, chest pain or SOB. ab2 14:46 14:42 BP 112 / 66; Pulse 63bpm; Resp 18bpm; Pulse Ox 98% RA; Temp 98.5F Temporal; 77.11 ab2 kg; Height 5 ft. 9 in.; BMI: 25.1; Pain 0/10; ab2
--- NOTE | 2021-12-15 20:12 | RAD REPORT ---
EXAM DESCRIPTION: RAD - Chest Single View - 12/15/2021 6:57 pm CLINICAL HISTORY: general weakness COMPARISON: Two view chest 07/10/2021 trauma portable chest 02/08/2019 TECHNIQUE: AP portable chest image was obtained 12/15/2021 6:57 pm . FINDINGS: Lung volumes are slightly reduced. No peripheral consolidation or infiltrative process see n. No failure or volume overload. Small 6-7 mm nodule in the lower right lung field is seen appears t o have been present on prior imaging. Heart and vasculature are normal. No pneumothorax. . Left costo phrenic angle blunting is present which could be minimal remnant pleural effusion or pleural scarring . Bony degenerative changes are present. No acute aortic findings suspected. IMPRESSION: No acute lung parenchymal process seen. Minimal left costophrenic angle blunting could be trace pleural effusion or pleural scarring.
[2021-12-15 21:35] VITALS: TEMP 98.5
[2021-12-15 21:41] VITALS: BP 123/60; O2SAT 99
--- NOTE | 2021-12-18 11:19 | EKG ---
Test Date: 2021-12-15 Test Time: 16:34:40 Business Systems Manager: JOSE ENRIQUE MEASUREMENT RESULTS: Intervals: Rate: 49 MT: 158 QRSD: 106 QT: 480 QTc: 433 [place]: P: 48 MT: 158 QRS: -43 T: 37 INTERPRETIVE STATEMENTS: Sinus bradycardia Left axis deviation Abnormal ECG Compared to ECG 02/08/2019 02:26:33 Left-axis deviation now present Sinus rhythm no longer present Left anterior fascicular block no longer present Electronically Signed On 12-18-21 11:13:24 CDT by Vasquez Keating
== END 2021-12-15 20:06 | disposition home or self-care (01) ==
LOC: ER 14:16
DX: M62.81 Muscle weakness (generalized) (principal); E11.9 Type 2 diabetes mellitus without complications; I25.2 Old myocardial infarction
CPT/HCPCS: 93005; 85025; 80048; 36415; 86900; 83735; 86850; 85610; 86901; 80076; 84484; 83880; 70450; 74177; 71045; 99283; Q9967; 81003; 81015

== ENCOUNTER 2022-09-28 11:09 | Inpatient (IN) | payer OTHER ==
--- OUTSIDE RECORDS SUMMARY | 2022-09-28 11:18 | XMS REPORT | Continuity of Care Document ---
:1945 Author Organization [facility] t Address [address] [place] [address] Care Team Providers Name Role Phone Dior Do DO Primary Care Physician GRACIA ZAMORA Attending Clinician Unavailable Mary Richey MA Attending Clinician Unavailable Bui_Q Attending Clinician Unavailable ROBY LUNA Attending Clinician Unavailable JACY VIVAS Attending Clinician Unavailable MD GRACIA ZAMORA Attending Clinician Unavailable [email or web address] Attending Clinician Unavailable Darinel Singh Attending Clinician Chidi Sweeney Attending Clinician Bui_Q Admitting Clinician Unavailable GRACIA ZAMORA Admitting Clinician Unavailable MD GRACIA ZAMORA Admitting Clinician Unavailable [email or web address] Admitting Clinician Unavailable Chidi Sweeney Admitting Clinician Payers Payer Name Policy Type Policy Number Effective Date Expiration Date S ource Problems Condition Condition Condition Status Onset Resolution Last Treating Co mments Source Name Details Category Date Date Treatment Clinician Date Mixed Mixed Disease Active [facility]i hyperlipid hyperlipid 06-12 emia emia 00:00: Hospita 00 l Abnormal Abnormal Disease Active Metho di stress stress 06 st test test 00:00: Hospita 00 l Chest pain Chest pain Disease Active M ethodi 12-20 st 00:00: Hospita 00 l Dizziness Dizziness Disease Active Met hodi 3-[facility] st 00:00: Hospita 00 l History of History of Disease Active M ethodi coronary coronary 3-16 st artery artery 00:00: Hospita stent stent 00 l placement placement 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 Active [facility] [place] 3-16 [facility] artery artery 00:00: Hospita 00 l R05 - R05 - Diagnosis Active 2018-092019-08-18 Mem oria COUGH COUGH 2- 11:53:00 l Active 00:01: [place] 08/18/2019 00 OPID [place] C34.31 C34.31 Diagnosis Active 2019-04-11 Me moria MALIGNANT MALIGNANT 04-06 12:47:00 l NEOPLASM NEOPLASM 00:00: Humza n OF LOWER OF LOWER 00 LOBE, LOBE, Active 04/06/2019 [place] CAP, FEVER CAP, Diagnosis Active 2019-02-12 Memoria FEVER 02-10 13:40:00 l Active 00:00: [place] 02/10/2019 00 [facility] FLUID ON FLUID ON Diagnosis Active 2019-02-10 Memoria LUNGS LUNGS 02-10 20:50:00 l Active 00:00: [place] 02/10/2019 00 [facility] MALIGNANT MALIGNANT Diagnosis Active 2019-04-11 Memoria NEOPLASM NEOPLASM 12:47:00 l OF LOWER OF LOWER Humza n LOBE, LOBE, RIGHT RIGHT Active [place] PNEUMONIA, PNEUMONIA Diagnosis Active 2019-02-12 Memoria UNSPECIFIE , 13:40:00 l D ORGANISM UNSPECIFIE He rmann D ORGANISM Active [facility] FEVER, FEVER, Diagnosis Active 2019-02-12 Ar moria UNSPECIFIE UNSPECIFIE 13:40:00 l D D Active [facility] Pneumonia, Pneumonia Problem 2019-02-15 Memoria unspecifie , 22:27:14 l d organism unspecifie He rmann d organism 9 [facility] History of Past Illness Condition Condition Condition Status Onset Resolution Last Treating Co mments Source Name Details Category Date Date Treatment Clinician Date Other Other Problem 2019-02-15 2019-02-15 Memoria fatigue fatigue 02-10 22:27:14 22:27:14 l 02/10/2019 17:00: Humza n 02/15/2019 00 [facility] Chest Chest Problem 2019-02-15 2019-02-15 M emoria pain, pain, 02-10 22:27:14 22:27:14 l unspecifie unspecifie 17:00: Nigel armijo d 00 02/10/2019 02/15/2019 [facility] Pleural Pleural Problem 2019-0 2019-02-15 2019-02-15 Jimi effusion, effusion, 02-10 22:27:14 22:27:14 l not not 17:00: [place] elsewhere elsewhere 00 classified classified 02/10/2019 02/15/2019 [facility] Allergies, Adverse Reactions, Alerts This patient has no known allergies or adverse reactions. Social History Social Habit Start Date Stop Date Quantity Comments Source History of Current smoker [facility] Alcohol intake 2021-01-06 2021-01-06 Ex-drinker [facility] 00:[facility] 00:00:00 (finding) Hospital Tobacco use and 2020-11-29 2020-11-29 Smokeless tobacco [facility] exposure 00:00:00 00:00:00 non-user Hospital Social History 2019-02-11 2019-02-11 [facility] 02:14:42 02:14:42 Sex Ass[birth year] At [birth year] [facility] 00:[facility]:00 00:00:00 Hospital Smoking Status Start Date Stop Date Source Ex-smoker 2020-11-29 00:00:00 2020-11-29 00:00:00 [facility] Ordered Filled Start Stop Current Ordering Indication Dosage Frequency Signature Comments Components Source Medication Medication Date Date Medication? Clinician (SIG) Name Name rocio 2021-09 Yes [id number] TAKE 1 [facility] n (LIPITOR) 0-[address] 40 mg 00:00: MOUTH Hospita tablet 00 EVERY DAY l predniSONE 0 Yes 5mg QD Take 5 mg Me thodi (DELTASONE) 9-[address] 5 mg tablet 11:32: daily. Hosp jose a 14 l lansoprazol 0 Yes 30mg QD Take 30 mg Methodi e 9-[address] (PREVACID) 11:32: daily. Hospi ta 30 MG 14 l capsule hydrOXYchlo Yes 200mg Q.5D Take 200 M ethodi roQUINE 9-[address] (PLAQUENIL) 11:32: mouth 2 Hos joshua 200 mg 14 (two) l tablet times a day. montelukast 0 Yes 10mg QD Take 10 mg Methodi (SINGULAIR) - by mouth st 10 mg 11:32: nightly. Hospita tablet 14 l azaTHIOprin 0 Yes 50mg Q.5D Take 50 mg Methodi e (IMURAN) 9-[address] 50 mg 11:32: (two) Hospita tablet 14 times a l day. sucralfate 0 Yes 1g QD Take 1 g Met hodi (CARAFATE) 06-[address] 1 gram 11:32: daily. Hospita tablet 14 l famotidine 0 Yes 40mg QD Take 40 mg M ethodi (PEPCID) 40 06-[address] MG tablet 11:32: daily. Hospit a 14 l acetaminoph 0 Yes 500mg Q6H Take 500 M ethodi en 9-[address] (TYLENOL) 11:32: mouth Hospita 500 MG 14 every 6 l tablet (six) hours as needed for mild pain. vit 0 Yes 1{tbl} Q.5D Take 1 Methodi C/E/Zn/meryl 9-[address] r/lutein/ze 11:32: mouth 2 Hos joshua axan 14 (two) l (PRESERVISI times a ON AREDS-2 day. ORAL) docusate 0 Yes 50mg Q.5D Take 50 mg Met hodi sodium -[address] (COLACE) 50 11:32: (two) Hospi ta MG capsule 14 times a l day. lactobacill 0 Yes 1{tbl} Q.5D Take 1 Me thodi us combo 9-[address] no[address]13 11:32: mouth 2 Hospita (Probiotic 14 (two) l Pearls times a Complete) 1 day. billion cell capsule,del ayed release(DR/ EC) simethicone 0 Yes 180mg Q.5D Take 180 M ethodi (MYLICON) 9-[address] 125 mg 11:32: mouth 2 Hospita capsule 14 (two) l times a day. atorvastati 2020-2021- No [id number] 40mg QD Take 1 Methodi n (LIPITOR) 0-22 10-10 tablet (40 s t 40 mg 00:00: 00:00 mg total) Hospit a tablet 00 :00 by mouth l daily. aspirin Yes 81mg QD Take 1 Methodi (ECOTRIN) 4-22 tablet (81 st 81 MG 00:00: mg total) Hospita enteric 00 by mouth l coated daily. tablet azithromyci Yes Notes: Nikolai lidia n 250 mg 5-31 Take 1 l oral tablet 22:00: hour Humza n 00 before or 2 hours after meals. (Same As: Zithromax) azithromyci Yes Notes: Nikolai lidia n 250 mg 5-31 Take 1 l oral tablet 22:00: hour Humza n 00 before or 2 hours after meals. (Same As: Zithromax) azithromyci Yes Notes: Nikolai lidia n 250 mg [...] 0 Tablet Refill(s) [Tylenol with Codeine #3] Acetaminoph No 1 - 2 tab, Memoria en 300 MG / 5-31 PO, Q4H, l Codeine 19:33: PRN Pain, Cassi nn Phosphate 00 X 2 day, # 30 MG Oral 20 tab, 0 Tablet Refill(s) [Tylenol with Codeine #3] Acetaminoph No 1 - 2 tab, Memoria [...] 0 20 MG/ML Refill(s), Oral Pharmacy: Solution [facility] cy #[id number] Levofloxaci 2019-0 Yes 750 mg = 1 Memoria n 750 MG 5-31 tab, PO, l Oral Tablet 19:28: Q24H, X 7 H ermann [Levaquin] 00 day, # 7 tab, 0 Refill(s), Pharmacy: [facility] #[id number] Dextrometho 2019-0 Yes 10 mL, PO, Memoria rphan 5-31 Q4H, PRN l Hydrobromid 19:28: Cough, X He rmann e 2 MG/ML / 00 10 day, # Guaifenesin 240 mL, 0 20 MG/ML Refill(s), Oral Pharmacy: [facility] cy #[id number] Levofloxaci 2019-0 Yes 750 mg = 1 Memoria n 750 MG 5-31 tab, PO, l Oral Tablet 19:28: Q24H, X 7 H ermann [Levaquin] 00 day, # 7 tab, 0 Refill(s), Pharmacy: [facility] cy #[id number] Dextrometho 2019-0 Yes 10 mL, PO, Memoria rphan 5-31 Q4H, PRN l Hydrobromid 19:28: Cough, X He rmann e 2 MG/ML / 00 10 day, # Guaifenesin 240 mL, 0 20 MG/ML Refill(s), Oral Pharmacy: Solution [facility] cy #[id number] Levofloxaci 2019-0 Yes 750 mg = 1 Memoria n 750 MG 5-31 tab, PO, l Oral Tablet 19:28: Q24H, X 7 H ermann [Levaquin] 00 day, # 7 tab, 0 Refill(s), Pharmacy: [facility] #[id number] montelukast 2019-0 No Notes: Nikolai lidia 5-30 (Same l 14:00: as:Karly Pisano ir) lansoprazol 2019-0 No 30 mg, Nikolai lidia e 5-30 Route: PO, l 14:00: Drug form: [place] DRC, Daily, Dosing Weight 81.091, kg, Start date: 02/12/19 9:00:00 CDT, Duration: 30 day, Stop date: 03/13/19 9:00:00 CDT Docusate 2019-0 No Notes: Memoria Sodium 100 5-30 (Same as: l MG Oral 14:00: Colace) [place] Capsule 00 (Do Not Crush) montelukast No Notes: Nikolai lidia 5-30 (Same l 14:00: as:Singula [place] 00 ir) clopidogrel No Notes: Nikolai lidia 5-30 (Same As: l 14:00: Plavix) lansoprazol No 30 mg, Nikolai lidia e 5-30 Route: PO, l 14:00: Drug form: [place] 00 DRC, Daily, Dosing Weight 81.091, kg, Start date: 02/12/19 9:00:00 CDT, Duration: 30 day, Stop date: 03/13/19 9:00:00 CDT Docusate No Notes: Memoria Sodium 100 5-30 (Same as: l MG Oral 14:00: Colace) [place] Capsule 00 (Do Not Crush) clopidogrel No Notes: Nikolai lidia 5-30 (Same As: l 14:00: Plavix) montelukast No Notes: Nikolai lidia 5-30 (Same l 14:00: as:Singula [place] ir) lansoprazol No 30 mg, Nikolai lidia e 5-30 Route: PO, l 14:00: Drug form: [place] 00 DRC, Daily, Dosing Weight 81.091, kg, Start date: 02/12/19 9:00:00 CDT, Duration: 30 day, Stop date: 03/13/19 9:00:00 CDT Docusate No Notes: Memoria Sodium 100 5-30 (Same as: l MG Oral 14:00: Colace) [place] Capsule 00 (Do Not Crush) clopidogrel No Notes: Nikolai lidia 5-30 (Same As: l 14:00: Plavix) Simethicone No Notes: Nikolai lidia 5-30 (Same as: l 02:00: Mylicon) Ranitidine No 150 mg, 1 Me moria 150 MG Oral 5-30 cap, l Capsule 02:00: Route: PO, Herm taylor 00 Drug form: CAP, Bedtime, Dosing Weight 81.091, kg, Start date: 02/11/19 21:00:00 CDT, Duration: 30 day, Stop date: 03/12/19 21:00:00 CDT Pravastatin 2018-0 No Notes: Nikolai lidia 5-30 (Same as: l 02:00: Pravachol) cefTRIAXone No Notes: Nikolai lidia + sterile 5-30 (Same As: l water 10 mL 02:00: Rocephin). Use with 100 mL NS and infuse over 30 min MEDICATION WASTE Product Size: 1000 mg Product Wasted: ___ mg Simethicone 2018-0 No Notes: Nikolai lidia 5-30 (Same as: l 02:00: Mylicon) Ranitidine 2018-0 No 150 mg, 1 Me moria 150 MG Oral 5-30 cap, l Capsule 02:00: Route: PO, Herm taylor Drug form: CAP, Bedtime, Dosing Weight 81.091, kg, Start date: 02/11/19 21:00:00 CDT, Duration: 30 day, Stop date: 03/12/19 21:00:00 CDT Pravastatin 2018-0 No Notes: Nikolai lidia 5-30 (Same as: l 02:00: Pravachol) cefTRIAXone No Notes: Nikolai lidia + sterile 5-30 (Same As: l water 10 mL 02:00: Rocephin). Use with 100 mL NS and infuse over 30 min MEDICATION WASTE Product Size: 1000 mg Product Wasted: ___ mg Simethicone 2018-0 No Notes: Nikolai lidia 5-30 (Same as: l 02:00: Mylicon) Ranitidine 2018-0 No 150 mg, 1 Me moria 150 MG Oral 5-30 cap, l Capsule 02:00: Route: PO, Herm taylor Drug form: CAP, Bedtime, Dosing Weight 81.091, kg, Start date: 02/11/19 21:00:00 CDT, Duration: 30 day, Stop date: 03/12/19 21:00:00 CDT Pravastatin 2018-0 No Notes: Nikolai lidia 5-30 (Same as: l 02:00: Pravachol) [place] 00 cefTRIAXone No Notes: Nikolai lidia + sterile 5-30 (Same As: l water 10 mL 02:00: Rocephin). [place] 00 Use with 100 mL NS and infuse over 30 min MEDICATION WASTE Product Size: 1000 mg Product Wasted: ___ mg azithromyci No Notes: Nikolai lidia n + Sodium 5-30 (Same As: l Chloride 00:00: Zithromax Herm taylor 0.9% IV 250 00 IV) mL azithromyci No Notes: Nikolai lidia n + Sodium 5-30 (Same As: l Chloride 00:00: Zithromax Herm atylor 0.9% IV 250 00 IV) mL azithromyci No Notes: Nikolai lidia n + Sodium 5-30 (Same As: l Chloride 00:00: Zithromax Herm taylor 0.9% IV 250 00 IV) mL Protonix No Notes: Memoria 5-29 Tablet l 21:30: should not [place] 00 be chewed or crushed. (Same as: Protonix) Protonix No Notes: Memoria 5-29 Tablet l 21:30: should not [place] 00 be chewed or crushed. (Same as: Protonix) Protonix No Notes: Memoria 5-29 Tablet l 21:30: should not [place] 00 be chewed or crushed. (Same as: Protonix) Calcium No Notes: Memoria Gluconate 29 WASTE: F/P l 20:04: - Sink; E [place] - [facility] Trash Bin Magnesium No Notes: Memori a Oxide 02-11 (Same as: l 20:04: Mag-Ox [place] 00 400) Magnesium oxide 582pm=646e g elemental magnesium Dose=____m g magnesium oxide (___mg elemental magnesium) Magnesium No Notes: Memori a Sulfate 02-11 WASTE: F/P l 20:04: - Sink; E [place] - [facility] Trash Bin Potassium No Notes: Memori a Chloride 5-29 Infuse at l 20:04: a rate of [place] 00 10 mEq/hr. (Same as: KCL) sodium No Notes: Memoria phosphate 5-29 Infuse l 20:04: over 4 [place] 00 hour. Do not infuse phosphorou s concurrent ly in the same line as TPN or IVF that contains calcium. For double lumen central lines, phosphorou s may be infused in a separate lumen from TPN. potassium No Notes: Memori a phosphate 5-29 (Same as: l 20:04: K [place] 00 Phosphate. ) Do not infuse phosphorou s concurrent ly in the same line as TPN or IVF that contains calcium. For double lumen central lines, phosphorou s may be infused in a separate lumen from TPN. 1 mMol phoshate has 1.47 mEq potassium Infuse over 4 hours potassium No Notes: Memori a phosphate-s -29 (Same as: l odium 20:04: Phos-NaK) [place] phosphate 00 Each 1.5 250 mg-280 gm pkt has mg-160 mg 250mg oral powder phosphorou for s. Mix reconstitut w/2.5oz ion water and stir. Calcium No Notes: Memoria Gluconate -29 WASTE: F/P l 20:04: - Sink; E [place] - [facility] Trash Bin Magnesium No Notes: Memori a Oxide -29 (Same as: l 20:04: Mag-Ox [place] 00 400) Magnesium oxide 152pw=170f g elemental magnesium Dose=____m g magnesium oxide (___mg elemental magnesium) Magnesium No Notes: Memori a Sulfate -29 WASTE: F/P l 20:04: - Sink; E [place] - [facility] Trash Bin Potassium No Notes: Memori a Chloride 5-29 Infuse at l 20:04: a rate of [place] 00 10 mEq/hr. (Same as: KCL) sodium No Notes: Memoria phosphate 5-29 Infuse l 20:04: over 4 [place] 00 hour. Do not infuse phosphorou s concurrent ly in the same line as TPN or IVF that contains calcium. For double lumen central lines, phosphorou s may be infused in a separate lumen from TPN. potassium No Notes: Memori a phosphate 5-29 (Same as: l 20:04: K [place] 00 Phosphate. ) Do not infuse phosphorou s concurrent ly in the same line as TPN or IVF that contains calcium. For double lumen central lines, phosphorou s may be infused in a separate lumen from TPN. 1 mMol phoshate has 1.47 mEq potassium Infuse over 4 hours potassium No Notes: Memori a phosphate-s 29 (Same as: l odium 20:04: Phos-NaK) [place] phosphate 00 Each 1.5 250 mg-280 gm pkt has mg-160 mg 250mg oral powder phosphorou for s. Mix reconstitut w/2.5oz ion water and stir. Calcium No Notes: Memoria Gluconate 02-11 WASTE: F/P l 20:04: - Sink; E [place] 00 - Municipal Trash Bin Magnesium No Notes: Memori a Oxide 02-11 (Same as: l 20:04: Mag-Ox [place] 00 400) Magnesium oxide 635vd=940a g elemental magnesium Dose=____m g magnesium oxide (___mg elemental magnesium) Magnesium No Notes: Memori a Sulfate 02-11 WASTE: F/P l 20:04: - Sink; E [place] - [facility] Trash Bin Potassium No Notes: Memori a Chloride -29 Infuse at l 20:04: a rate of [place] 00 10 mEq/hr. (Same as: KCL) sodium No Notes: Memoria phosphate -29 Infuse l 20:04: over 4 [place] 00 hour. Do not infuse phosphorou s concurrent ly in the same line as TPN or IVF that contains calcium. For double lumen central lines, phosphorou s may be infused in a separate lumen from TPN. potassium No Notes: Memori a phosphate 5-29 (Same as: l 20:04: K [place] 00 Phosphate. ) Do not infuse phosphorou s concurrent ly in the same line as TPN or IVF that contains calcium. For double lumen central lines, phosphorou s may be infused in a separate lumen from TPN. 1 mMol phoshate has 1.47 mEq potassium Infuse over 4 hours potassium No Notes: Memori a phosphate-s -29 (Same as: l odium 20:04: Phos-NaK) [place] phosphate 00 Each 1.5 250 mg-280 gm pkt has mg-160 mg 250mg oral powder phosphorou for s. Mix reconstitut w/2.5oz ion water and stir. Ranitidine Yes 150 mg = 1 M emoria 150 MG Oral 5-29 cap, PO, l Capsule 19:06: Bedtime, 0 Herm taylor 00 Refill(s) Hydroxychlo 2018- Yes 200 mg = 1 Memoria roquine 5-29 tab, PO, l Sulfate 200 19:06: BID, 0 Herm taylor MG Oral 00 Refill(s) Tablet Docusate Yes 100 mg = 1 Mem oria Sodium 100 5-29 cap, PO, l MG Oral 19:06: Daily, [place] Capsule 00 bedtime, 0 Refill(s) montelukast 2018- Yes 10 mg = 1 M emoria 10 mg oral 5-29 tab, PO, l tablet 19:06: Daily, 0 [place] 00 Refill(s) lansoprazol Yes 30 mg = 1 M emoria e 30 mg 5-29 cap, PO, l oral 19:06: Daily, 0 [place] delayed 00 Refill(s) release capsule simethicone Yes 125 mg = 1 Memoria 125 mg oral 5-29 cap, PO, l capsule 19:06: Daily, [place] 00 bedtime, # 60 cap, 0 Refill(s) clopidogrel 2019- Yes 75 mg = 1 M emoria 75 mg oral 5-29 tab, PO, l tablet 19:06: Daily, # [place] 00 30 tab, 0 Refill(s) pravastatin 2019- Yes 20 mg = 1 M emoria 20 mg oral 5-29 tab, PO, l tablet 19:06: Bedtime, # Cassi nn 00 30 tab, 0 Refill(s) Ranitidine 2018- Yes 150 mg = 1 M emoria 150 MG Oral 5-29 cap, PO, l Capsule 19:06: Bedtime, 0 Herm taylor 00 Refill(s) Hydroxychlo 2018- Yes 200 mg = 1 Memoria roquine 5-29 tab, PO, l Sulfate 200 19:06: BID, 0 Herm taylor MG Oral 00 Refill(s) Tablet Docusate Yes 100 mg = 1 Mem oria Sodium 100 5-29 cap, PO, l MG Oral 19:06: Daily, [place] Capsule 00 bedtime, 0 Refill(s) montelukast Yes 10 mg = 1 M emoria 10 mg oral 5-29 tab, PO, l tablet 19:06: Daily, 0 [place] 00 Refill(s) lansoprazol Yes 30 mg = 1 M emoria e 30 mg 5-29 cap, PO, l oral 19:06: Daily, 0 [place] delayed 00 Refill(s) release capsule simethicone Yes [...] Cassi nn 00 30 tab, 0 Refill(s) Ranitidine Yes 150 mg = 1 M emoria 150 MG Oral 5-29 cap, PO, l Capsule 19:06: Bedtime, 0 Herm taylor 00 Refill(s) Hydroxychlo Yes 200 mg = 1 Memoria roquine 5-29 tab, PO, l Sulfate 200 19:06: BID, 0 Herm taylor MG Oral 00 Refill(s) Tablet Docusate Yes 100 mg = 1 Mem oria Sodium 100 5-29 cap, PO, l MG Oral 19:06: Daily, [place] Capsule 00 bedtime, 0 Refill(s) montelukast Yes 10 mg = 1 M emoria 10 mg oral 5-29 tab, PO, l tablet 19:06: Daily, 0 [place] 00 Refill(s) lansoprazol Yes 30 mg = 1 M emoria e 30 mg 5-29 cap, PO, l oral 19:06: Daily, 0 [place] delayed 00 Refill(s) release capsule simethicone 2019-0 Yes 125 mg = 1 Memoria 125 mg oral 5-29 cap, PO, l capsule 19:06: Daily, [place] 00 bedtime, # 60 cap, 0 Refill(s) [...] / 5-29 (Same as: l Hydrocodone 04:49: [place] Cassi nn Bitartrate 00 325/5) Do 5 MG Oral not exceed Tablet 4gm/day of [[place] acetaminop 5/325] hen. Acetaminoph No Notes: Nikolai lidia en 325 MG / 5-29 (Same as: l Hydrocodone 04:49: [place] Cassi nn Bitartrate 00 325/5) Do 5 MG Oral not exceed Tablet 4gm/day of [[place] acetaminop 5/325] hen. Acetaminoph No Notes: Nikolai lidia en 325 MG / 5-29 (Same as: l Hydrocodone 04:49: [place] Cassi nn Bitartrate 00 325/5) Do 5 MG Oral not exceed Tablet 4gm/day of [[place] acetaminop 5/325] hen. Ceftriaxone No 1 gm, Memor ia 5-29 Route: l 02:00: IVP, [place] [id number], kg, Start date: 02/10/19 21:00:00 CDT, Duration: 7 day, Stop date: 02/16/19 21:00:00 CDT, ABX Indication : Pneumonia Azithromyci No Notes: Nikolai lidia n 5-29 (Same As: l 02:00: Zithromax [place] IV) Ceftriaxone No 1 gm, Memor ia 5-29 Route: l 02:00: IVP, [place] 00 [id number], kg, Start date: 02/10/19 21:00:00 CDT, Duration: 7 day, Stop date: 02/16/19 21:00:00 CDT, ABX Indication : Pneumonia Azithromyci No Notes: Nikolai lidia n 5-29 (Same As: l 02:00: Zithromax [place] 00 IV) Ceftriaxone No 1 gm, Memor ia 02-11 Route: l 02:00: IVP, [place] 00 [id number], kg, Start date: 02/10/19 21:00:00 CDT, Duration: 7 day, Stop date: 02/16/19 21:00:00 CDT, ABX Indication : Pneumonia Azithromyci No Notes: Inkolai lidia n 5-29 (Same As: l 02:00: Zithromax [place] 00 IV) Dextrometho No Notes: Nikolai lidia rphan 5-29 (dextromet l Hydrobromid 01:15: horphan-gu [place] e 2 MG/ML / 00 aifenesin Guaifenesin 10-100mg/5 20 MG/ML ml 10 ml Oral oral SOLN Solution ud) (Same as: Robitussin DM) Acetaminoph No Notes: Do M emoria en 02-11 not exceed l 01:15: 4 gm/day. [place] 00 (Same as: Tylenol) Ondansetron No Notes: Nikolai lidia 5-29 (Same as: l 01:15: Zofran) [place] 00 MEDICATION WASTE Product Size: 4 mg Product Wasted: ___ mg Dextrometho No Notes: Nikolai lidia rphan 5-29 (dextromet l Hydrobromid 01:15: horphan-gu [place] e 2 MG/ML / 00 aifenesin Guaifenesin 10-100mg/5 20 MG/ML ml 10 ml Oral oral SOLN Solution ud) (Same as: Robitussin DM) Acetaminoph No Notes: Do M emoria en 02-11 not exceed l 01:15: 4 gm/day. [place] 00 (Same as: Tylenol) Ondansetron No Notes: Nikolai lidia 5-29 (Same as: l 01:15: Zofran) [place] 00 MEDICATION WASTE Product Size: 4 mg Product Wasted: ___ mg Dextrometho No Notes: Nikolai lidia rphan 02-11 [...] lidia 02-11 (Same as: l 01:15: Zofran) [place] 00 MEDICATION WASTE Product Size: 4 mg Product Wasted: ___ mg NS (Bolus) No 500 mL, Nikolai lidia IV 02-10 500 ml/hr, l 23:56: Infuse [place] 00 Over: 1 hr, Route: IV, 500, Drug form: INJ, ONCE, Priority: STAT, kg, Start date: 02/10/19 18:56:00 CDT, Stop date: 02/10/19 18:56:00 CDT Azithromyci No Notes: Nikolai lidia n - (Same As: l 23:56: Zithromax [place] IV) NS (Bolus) No 500 mL, Nikolai lidia IV - 500 ml/hr, l 23:56: Infuse [place] 00 Over: 1 hr, Route: IV, 500, Drug form: INJ, ONCE, Priority: STAT, kg, Start date: 02/10/19 18:56:00 CDT, Stop date: 02/10/19 18:56:00 CDT Azithromyci No Notes: Nikolai lidia n - (Same As: l 23:56: Zithromax [place] 00 IV) NS (Bolus) No 500 mL, Nikolai lidia IV -28 500 ml/hr, l 23:56: Infuse [place] 00 Over: 1 hr, Route: IV, 500, Drug form: INJ, ONCE, Priority: STAT, kg, Start date: 02/10/19 18:56:00 CDT, Stop date: 02/10/19 18:56:00 CDT Azithromyci No Notes: Nikolai lidia n 02-10 (Same As: l 23:56: Zithromax [place] 00 IV) Ceftriaxone No Notes: Nikolai lidia 02-10 (Same As: l 23:55: Rocephin). [place] 00 Use with 100 mL NS and infuse over 30 min MEDICATION WASTE Product Size: 1000 mg Product Wasted: ___ mg Ceftriaxone No Notes: Nikolai lidia 02-10 (Same As: l 23:55: Rocephin). [place] 00 Use with 100 mL NS and infuse over 30 min MEDICATION WASTE Product Size: 1000 mg Product Wasted: ___ mg Ceftriaxone No Notes: Nikolai lidia 02-10 (Same As: l 23:55: Rocephin). [place] 00 Use with 100 mL NS and infuse over 30 min MEDICATION WASTE Product Size: 1000 mg Product Wasted: ___ mg Vital Signs Vital Name Observation Time Observation Value Comments Source Systolic blood 2022-06-12 16:31:00 114 mm[Hg] [facility] pressure Diastolic blood 2022-06-12 16:31:00 60 mm[Hg] [facility] pressure Heart rate 2022-06-12 16:31:00 62 /min [facility] Body height 2022-06-12 16:31:00 175.3 cm [facility] Body weight 2022-06-12 16:31:00 78.019 kg [facility] BMI 2022-06-12 16:31:00 25.40 kg/m2 [facility] Temperature Oral (F) 2019-02-13 16:43:00 97.5 F [facility] [place] Systolic (mm Hg) 2019-02-13 16:43:00 Nikolai rial [place] Diastolic (mm Hg) 2019-02-13 16:43:00 Mem orial [place] Respitory Rate 2019-02-13 16:43:00 Memori al [place] Heart Rate 2019-02-13 16:43:00 [facility] [place] Respitory Rate 2019-02-13 15:12:00 Memori al [place] Heart Rate 2019-02-13 12:35:00 [facility] [place] Temperature Oral (F) 2019-02-13 12:35:00 97.8 F [facility] [place] Systolic (mm Hg) 2019-02-13 12:35:00 Nikolai rial [place] Diastolic (mm Hg) 2019-02-13 12:35:00 Mem orial [place] Respitory Rate 2019-02-13 12:35:00 Memori al [place] Heart Rate 2019-02-13 08:23:00 [facility] [place] Temperature Oral (F) 2019-02-13 08:23:00 97.8 F [facility] [place] Systolic (mm Hg) 2019-02-13 08:23:00 Nikolai rial [place] Diastolic (mm Hg) 2019-02-13 08:23:00 [facility] [place] Height 2019-02-11 02:05:00 177.8 cm [facility] [place] Weight 2019-02-11 02:05:00 [facility] [place] BMI Calculated 2019-02-11 02:05:00 [facility] [place] Weight 2019-02-11 01:45:00 [facility] [place] BMI Calculated 2019-02-11 01:45:00 [facility] [place] Height 2019-02-11 01:45:00 177.8 cm [facility] Procedures Procedure Date / Time Performed Performing Clinician Sourc e TTE COMPLETE, WO 2022-07-13 18:09:23 Gracia Zamora ospital CONTRAST, W DOPPLER ([id number]) LIPID PANEL 2022-06-15 18:02:00 Gracia Zamora spital AST (SGOT) 2022-06-15 18:02:00 Gracia Zamora spital ECG 12-LEAD 2022-06-12 16:31:36 Gracia Zamora spital Placement of stent in [facility] ermann cardiac conduit Plan of Care Planned Activity Planned Date Details Comments Source Future Scheduled 2022-08-30 COVID-19 VACCINE (#1) [facility] Test 22:27:14 [code = COVID-19 VACCINE (#1)] Future Scheduled 2022-08-30 65+ PNEUMOCOCCAL [facility] Test 22:27:14 VACCINE (1 - PCV) [code = 65+ PNEUMOCOCCAL VACCINE (1 - PCV)] Future Scheduled 2022-08-30 Hepatitis C screening [facility] Test 22:27:14 (procedure) [code = 805170006] Future Scheduled 2022-08-30 SHINGLES VACCINES (1 [facility] Test 22:27:14 of 2) [code = SHINGLES VACCINES (1 of 2)] Future Scheduled 2022-08-30 COLONOSCOPY SCREENING [facility] Test 22:27:14 [code = COLONOSCOPY SCREENING] Future Scheduled 2022-08-30 INFLUENZA VACCINE Method [facility] Test 22:27:14 [code = INFLUENZA VACCINE] Encounters Start End Encounter Admission Attending Care Care Encounter Source Date/Time Date/Time Type Type Clinicians Facility Department ID 2019-02-10 Inpatient E BL MED [id number] [facility] L 20:15:00 2022-07-13 2022-07-13 Outpatient [facility] [id number] [place] 00:00:00 00:00:00 GRACIA Fleming[address] [facility] 2022-07-13 2022-07-13 Travel 1.2.840.1 1.2.631.940 [id number] Methodi 00:00:00 00:00:[address] 3.430.2.7 0.2.7.3.698 Ho spita .3.138243 084.8 l .8 2022-07-03 2022-07-03 Telephone Rossi, 1.2.840.1 [id number] Methodi 00:00:00 00:00:[address] 3.430.2.7 Hospit a .3.528203 l .8 2022-07-03 2022-07-03 Orders Rossi, 1.2.840.1 [id number] Methodi 00:00:00 00:00:00 Only Mary 38364.1.[address] 3.430.2.7 Hospit a .3.136300 l .8 2022-06-25 2022-06-25 Refill Kelly 1.2.840.1 [id number] Methodi 00:00:00 00:00:00 Gracia Onofre [address] 3.430.2.7 Hospit a .3.408327 l .8 2022-06-12 2022-06-12 Office Kelly, 1.2.840.1 [id number] Methodi 11:20:00 15:47:24 Visit Gracia Onofre 73344.1.[address] 3.430.2.7 Hospit a .3.369699 l .8 2022-06-12 2022-06-12 Outpatient [facility] [id number] [place] 00:00:00 00:00:00 GRACIA [address] 2022-06-12 2022-06-12 Travel 1.2.840.1 1.2.552.090 [id number] Methodi 00:00:00 00:00:[address] 3.430.2.7 0.2.7.3.698 Ho spita .3.815948 084.8 l .8 2022-05-28 2022-05-28 Telephone Zamora, 1.2.840.1 [id number] Methodi 00:00:00 00:00:[address] 3.430.2.7 Hospit a .3.740622 l .8 2021-09-23 2021-09-23 Outpatient Bui_Q VFP VFP [id number] [facility] 07:01:00 07:01:00 Family Practic e 2021-07-14 2021-07-14 Outpatient HEBENSTREIT [facility]BL PUL 750 1 [facility]BL 12:11:00 23:59:00 , ROBY 2021-05-01 2021-05-01 Emergency E AZNAUROVA-A MHBL MHBL [id number] [facility]BL 11:29:00 14:34:00 JACY NIXON 2021-01-24 2021-01-25 [facility] [id number] [place] 00:00:00 00:00:00 GRACIA [address] 2021-01-04 2021-01-[address] [facility] [id number] [place] 00:00:00 00:00:00 GRACIA [address] 2020-12-30 2020-12-30 Outpatient ZAMORA, [facility] [id number] [place] 00:00:00 00:00:00 GRACIA [address] 2020-12-20 2020-12-20 Outpatient ZAMORA, [facility] [id number] [place] 00:00:00 00:00:00 GRACIA [address] 2020-12-13 2020-12-13 Outpatient ZAMORA, [facility] [id number] [place] 00:00:00 00:00:00 GRACIA [address] 2020-12-13 2020-12-13 Outpatient ZAMORA, [facility] [id number] [place] 00:00:00 00:00:00 GRACIA [address] 2020-12-06 2020-12-06 Outpatient Bui_Q_WAG VFP VFP 06456 - [facility] 10:32:00 10:32:00 78052 Family Practic e 2020-12-01 2020-12-01 Outpatient ZAMORA, [facility] [id number] [place] 00:00:00 00:00:00 GRACIA [address] 2020-11-29 2020-11-29 Outpatient ZAMORA, [facility] [id number] [place] 00:00:00 00:00:00 GRACIA 233 Method i 2019-08-18 2019-08-19 Outpt Diag nullFlavo [facility] [id number] Memoria 17:44:00 05:59:00 Services r Outpatient 00 l Imaging [facility] 2019-08-18 2019-08-19 Outpt Diag nullFlavo [facility] [id number] Memoria 17:44:00 05:59:00 Services r Outpatient 00 l [facility] 2019-08-18 2019-08-18 Outpatient Hotze, MHOIP MHOIP [id number] 11:44:00 23:59:00 Darinel Sherry Cooney 2019-04-11 2019-04-12 Outpatient nullFlavo [facility] [id number] Memoria 17:39:00 04:59:00 r [place] 01 l [facility] 2019-04-11 2019-04-12 Outpatient nullFlavo [facility] [id number] Memoria 17:39:00 04:59:00 r [place] 01 l [facility] 2019-04-11 2019-04-11 Outpatient Francisco, MHSE MHSE [id number] 12:39:00 23:59:00 Darinel Cooney 2019-04-11 2019-04-11 Outpatient MHSE PUL [id number] MH 12:39:00 12:39:00 Gilbert mcadams [facility] 2019-02-10 2019-02-13 Inpatient nullFlavo [facility] [id number] Memoria 22:09:47 21:20:00 [place] 00 l [facility] 2019-02-10 2019-02-13 Inpatient nullFlavo [facility] [id number] Memoria 22:09:47 21:20:00 r [place] 00 l [facility] 2019-02-10 2019-02-13 Outpatient Patel, MHPL PL [id number] 17:09:47 16:20:00 Peter 00 Results Test Description Test Time Test Comments Results Result Comments Source Lipid panel 2022-06-16 04:15:00 Test Item Value Reference Range Interpretation Comme nts Cholesterol, total 128 mg/dL See_Comment [Automat ed message] The (test code = 2093-3) system which generated this result tra nsmitted reference range : <=200. The reference r william was not used to int erpret this result as normal/abnormal . HDL cholesterol (test 48 mg/dL See_Comment [Auto mated message] The code = 2085-9) system which generated this result tra nsmitted reference range : > OR = 40. The referen ce range was not used to interpret this result as normal/abnormal . Triglycerides (test 78 mg/dL See_Comment [Automa neto message] The code = 2571-8) system which generated this result tra nsmitted reference range : <=150. The reference r william was not used to int erpret this result as normal/abnormal . LDL cholesterol mg/dL (calc) Reference ra nge: <100 calculated (test code = Mable simons range <100 60522-8) mg/dL for prima ry prevention; <70 mg/dL for patients with C HD or diabetic patien ts with > or = 2 CHD risk factors. LDL-C is now ca lculated using the Radha Swann calculation, wh ich is a validated novel method providing maxine r accuracy than the Friede dex equation in the estimation of L DL-C. Robin SS et al . JADEN. 2013;310(77): 3 580-6404 (http://educati on.[employer].Motivapps/f aq/EBR683) Cholesterol/HDL ratio See_Comment [Auto mated message] The (test code = 9830-1) system which generated this result tra nsmitted reference range : <5.0 (calc). The ref erence range was not u sed to interpret this result as normal/abnormal . Non-HDL cholesterol See_Comment For amy ents with (test code = 65055-9) diabet es plus 1 major ASCVD risk fact or, treating to a n on-HDL-C goal of <100 mg /dL (LDL-C of <70 mg/dL) i s considered a th erapeutic option. [Automa neto message] The sy stem which generated this result transmitted ref erence range: <130 mg/ dL (calc). The reference r william was not used to int erpret this result as normal/abnormal . STU (test code = STU) FASTING:YES FASTING: YES RAC (test code = RAC) Performing Organization Information: Site ID: [facility] Name: [facility] Address: [address] [place], [place] [id number] Director: [facility]2022-06-16 04:15:00 Test Item Value Reference Range Interpretation Comments AST (test code = 1920-8) 9 U/L 10-35 L STU (test code = STU) FASTING:YES FASTING: YES RAC (test code = RAC) Performing Organization Information: Site ID: [facility] Name: [facility] Address: [address] [place] [id number] Director: Roland Uribe Lab Interpretation (test Abnormal code = 24871-4) [facility] 12 xzok3083-82-68 22:43:48 Test Item Value Reference Range Interpretation Comments Ventricular rate (test code = 253) Atrial rate (test code = 255) [place] interval (test code = 266) QRSD interval (test code = 260) QT interval (test code = 264) QTC interval (test code = 265) P axis 1 (test code = 267) QRS axis 1 (test code = 268) T wave axis (test code = 270) EKG impression (test Poor data code = 273) quality-Sinus bradycardia-Left anterior fascicular block-Cannot rule out Anterior infarct , age undetermined-Abnormal ECG-In automated comparison with ECG of 04-JAN-2021 15:46,-No significant change was found- Quaker ItbcdneyYHNH-YoM-6 (COVID-19) RNA [Presence] in Respiratory specimen by MARIO with probe ppsvskeku6314-38-80 00:02:00 Test Item Value Reference Range Interpretation Comments SARS-CoV-2 (COVID-19) RNA Not detected Not-Detected [Presence] in Respiratory specimen by MARIO with probe detection (test code = 03152-2) FRIDA CARTER RKPBEPFJVNGVPK1497-15-19 08:11:00 Test Item Value Reference Range Interpretation Comments Lymphocytes (test code = Lymphocytes) 14.0 20.0-40.0 [facility] CenterSfbvqgdBVOAFZDQRA8515-14-33 08:11:00 Test Item Value Reference Range Interpretation Comments Lymphocytes (test code = Lymphocytes) 14.0 20.0-40.0 [facility] CenterRpxlpsrVSKJNSFZTX0770-51-31 08:11:00 Test Item Value Reference Range Interpretation Comments Monocytes (test code = Monocytes) 21.0 2.0-12.0 [facility] CenterMmlyewsBRMPOCVEWL4537-59-07 08:11:00 Test Item Value Reference Range Interpretation Comments Monocytes (test code = Monocytes) 21.0 2.0-12.0 [facility] CenterHwfojtkJXEEJGZBVU1037-92-08 08:11:00 Test Item Value Reference Range Interpretation Comments Lymphocytes # (test code = Lymphocytes 0.4 1.0-5.5 #) [facility] CenterUqeozzaOLVYFXYNQI1224-11-48 08:11:00 Test Item Value Reference Range Interpretation Comments Neutrophils # (test code = Neutrophils 2.0 1.5-8.1 #) [facility] CenterUhnnpkdZVJKJNWFLC9095-19-20 08:11:00 Test Item Value Reference Range Interpretation Comments RBC Morph (test code = Normal (02/12/19 3:11 RBC Morph) AM) [facility] CenterLglzoltXKSXQARPRK7662-92-87 08:11:00 Test Item Value Reference Range Interpretation Comments Segs (test code = Segs) 65.0 45.0-75.0 [facility] CenterHkqwflpPNMLKYEGIB6150-83-78 08:11:00 Test Item Value Reference Range Interpretation Comments Tot Cell Ct (test code = Tot Cell Ct) [address] [facility] CenterAavxhepLZFYOPUEMR9583-40-63 08:11:00 Test Item Value Reference Range Interpretation Comments Monocytes # (test code 0.7 See_Comment [Aut omated message] The = Monocytes #) system which generated this result tra nsmitted reference range : <=0.8. The reference r william was not used to int erpret this result as normal/abnormal . [facility] CenterHjtjsuqPCCHVJTNWN5974-20-38 08:11:00 Test Item Value Reference Range Interpretation Comments Plt Morph (test code = Normal (02/12/19 3:11 Plt Morph) AM) [facility] CenterNzpaidbNOWEBJPZIY1077-94-55 08:11:00 Test Item Value Reference Range Interpretation Comments MPV (test code = MPV) 8.6 7.4-10.4 [facility] CenterZpsvdzbEGWHYJRYZT2889-07-61 08:11:00 Test Item Value Reference Range Interpretation Comments MCH (test code = MCH) 36.5 pg 27.0-31.0 [facility] CenterQmlertwFSXFINZXTL1403-76-72 08:11:00 Test Item Value Reference Range Interpretation Comments MCHC (test code = MCHC) 33.9 32.0-36.0 [facility] CenterWbxfopeMUDAWYIOHJ9200-69-69 08:11:00 Test Item Value Reference Range Interpretation Comments Lymphocytes # (test code = Lymphocytes 0.4 1.0-5.5 #) [facility] CenterKctixwfSICTCWSETZ9792-65-86 08:11:00 Test Item Value Reference Range Interpretation Comments WBC (test code = WBC) 3.1 3.7-10.4 [facility] CenterEzqkrfqIVWBIKDIHR5383-23-61 08:11:00 Test Item Value Reference Range Interpretation Comments Hgb (test code = Hgb) 10.6 14.0-18.0 [facility] CenterAvrmnrjDLAUTWMKTR0762-84-86 08:11:00 Test Item Value Reference Range Interpretation Comments Hct (test code = Hct) 31.2 42.0-54.0 [facility] CenterHywjyrqMRTNUPOVBQ0228-17-49 08:11:00 Test Item Value Reference Range Interpretation Comments MCV (test code = MCV) 107.7 80.0-94.0 [facility] CenterZdajwspJCBABDTAQO4092-69-76 08:11:00 Test Item Value Reference Range Interpretation Comments RDW (test code = RDW) 20.3 11.5-14.5 [facility] CenterUeurnmpEJATMGERML7952-35-81 08:11:00 Test Item Value Reference Range Interpretation Comments Platelet (test code = Platelet) 298 133-450 [facility] CenterIvwicliKNOLKHQNFJ6398-02-25 08:11:00 Test Item Value Reference Range Interpretation Comments RBC (test code = RBC) 2.90 4.70-6.10 [facility] CenterWyyzebgQFFJLZNGSU8531-11-28 08:11:00 Test Item Value Reference Range Interpretation Comments Neutrophils # (test code = Neutrophils 2.0 1.5-8.1 #) [facility] CenterPxdmnscKZJZWEBMLP5104-30-21 08:11:00 Test Item Value Reference Range Interpretation Comments RBC Morph (test code = Normal (02/12/19 3:11 RBC Morph) AM) [facility] CenterSrivexwWTXFSFSRVJ0900-64-91 08:11:00 Test Item Value Reference Range Interpretation Comments Segs (test code = Segs) 65.0 45.0-75.0 [facility] CenterSvvqbbjFSNFVBEYRC8198-45-37 08:11:00 Test Item Value Reference Range Interpretation Comments Tot Cell Ct (test code = Tot Cell Ct) [address] [facility] CenterGodgaxsAZFMLTYIEG0055-32-08 08:11:00 Test Item Value Reference Range Interpretation Comments Monocytes # (test code 0.7 See_Comment [Aut omated message] The = Monocytes #) system which generated this result tra nsmitted reference range : <=0.8. The reference r william was not used to int erpret this result as normal/abnormal . [facility] CenterLbxotuoTXXDCUZUUM4030-65-56 08:11:00 Test Item Value Reference Range Interpretation Comments Plt Morph (test code = Normal (02/12/19 3:11 Plt Morph) AM) [facility] CenterUljughdKCVGTUOIGZ7875-70-15 08:11:00 Test Item Value Reference Range Interpretation Comments MPV (test code = MPV) 8.6 7.4-10.4 [facility] CenterVsqeqpyOUWVOKTCXX1927-48-73 08:11:00 Test Item Value Reference Range Interpretation Comments MCH (test code = MCH) 36.5 pg 27.0-31.0 [facility] CenterPqtxedoWBPEQCFPPV8032-65-46 08:11:00 Test Item Value Reference Range Interpretation Comments MCHC (test code = MCHC) 33.9 32.0-36.0 [facility] CenterYqccyxpLSLVLURVYS0502-46-75 08:11:00 Test Item Value Reference Range Interpretation Comments WBC (test code = WBC) 3.1 3.7-10.4 [facility] CenterShlhrhmKWBEVXXREE7248-80-28 08:11:00 Test Item Value Reference Range Interpretation Comments Hgb (test code = Hgb) 10.6 14.0-18.0 [facility] CenterBsiyumyINORYWCKFC3213-29-07 08:11:00 Test Item Value Reference Range Interpretation Comments Hct (test code = Hct) 31.2 42.0-54.0 [facility] CenterKjfdhxbXDBLIYRBDX8506-21-09 08:11:00 Test Item Value Reference Range Interpretation Comments MCV (test code = MCV) 107.7 80.0-94.0 [facility] CenterRqkjlexWYNWKSBFHW4965-67-15 08:11:00 Test Item Value Reference Range Interpretation Comments RDW (test code = RDW) 20.3 11.5-14.5 [facility] CenterDyuasfjRSIDFPTPLY4707-18-93 08:11:00 Test Item Value Reference Range Interpretation Comments Platelet (test code = Platelet) 298 133-450 [facility] CenterRddwtrkWAGCSAKFTW5962-79-89 08:11:00 Test Item Value Reference Range Interpretation Comments RBC (test code = RBC) 2.90 4.70-6.10 [facility] CenterLywyovuRHQXSTRILZ8840-36-71 08:11:00 Test Item Value Reference Range Interpretation Comments Lymphocytes (test code = Lymphocytes) 14.0 20.0-40.0 [facility] CenterIpjvjhzDFGZGHDBQY0315-74-12 08:11:00 Test Item Value Reference Range Interpretation Comments Monocytes (test code = Monocytes) 21.0 2.0-12.0 [facility] CenterRzvnazxZXWZOYEVVL0738-65-36 08:11:00 Test Item Value Reference Range Interpretation Comments Lymphocytes # (test code = Lymphocytes 0.4 1.0-5.5 #) [facility] CenterSofdvlyHVAJQMCDUU4368-93-46 08:11:00 Test Item Value Reference Range Interpretation Comments Neutrophils # (test code = Neutrophils 2.0 1.5-8.1 #) [facility] CenterGxfqmeiWJTGFLATLI6165-92-07 08:11:00 Test Item Value Reference Range Interpretation Comments RBC Morph (test code = Normal (02/12/19 3:11 RBC Morph) AM) [facility] CenterGlnovywAOMFNZZDSQ4008-55-72 08:11:00 Test Item Value Reference Range Interpretation Comments Segs (test code = Segs) 65.0 45.0-75.0 [facility] CenterMtwkvmeRAZEOGZSBI3364-45-81 08:11:00 Test Item Value Reference Range Interpretation Comments Tot Cell Ct (test code = Tot Cell Ct) [address] [facility] CenterPheqeltRFREFOOYZS9489-91-67 08:11:00 Test Item Value Reference Range Interpretation Comments Monocytes # (test code 0.7 See_Comment [Aut omated message] The = Monocytes #) system which generated this result tra nsmitted reference range : <=0.8. The reference r william was not used to int erpret this result as normal/abnormal . [facility] CenterUunnkmmYHGSODSFIO7071-80-23 08:11:00 Test Item Value Reference Range Interpretation Comments Plt Morph (test code = Normal (02/12/19 3:11 Plt Morph) AM) [facility] CenterQncwbfjLWFPLMPVBF6471-28-08 08:11:00 Test Item Value Reference Range Interpretation Comments MPV (test code = MPV) 8.6 7.4-10.4 [facility] CenterZuvphrlOMJTHQREEQ9113-52-19 08:11:00 Test Item Value Reference Range Interpretation Comments MCH (test code = MCH) 36.5 pg 27.0-31.0 [facility] CenterIpckrqhPVHIDABXOY2813-58-41 08:11:00 Test Item Value Reference Range Interpretation Comments MCHC (test code = MCHC) 33.9 32.0-36.0 [facility] CenterNfmrsqqXNKBYYJRYV8015-15-47 08:11:00 Test Item Value Reference Range Interpretation Comments WBC (test code = WBC) 3.1 3.7-10.4 [facility] CenterMgprqkcGQFBQAHYJI6346-67-92 08:11:00 Test Item Value Reference Range Interpretation Comments Hgb (test code = Hgb) 10.6 14.0-18.0 [facility] CenterIwgadqyZASKXJFBQU4973-21-03 08:11:00 Test Item Value Reference Range Interpretation Comments Hct (test code = Hct) 31.2 42.0-54.0 [facility] CenterNlvuxwgWUVGTPDZPE3675-97-12 08:11:00 Test Item Value Reference Range Interpretation Comments MCV (test code = MCV) 107.7 80.0-94.0 [facility]CombdkjNCQRGEMDNW9739-68-01 08:11:00 Test Item Value Reference Range Interpretation Comments RDW (test code = RDW) 20.3 11.5-14.5 [facility]aultRxxdgtmIRAULYNYRZ5848-85-91 08:11:00 Test Item Value Reference Range Interpretation Comments Platelet (test code = Platelet) 298 133-450 [facility] SaultNtdxzfuCPRDFVFSEC7251-11-05 08:11:00 Test Item Value Reference Range Interpretation Comments RBC (test code = RBC) 2.90 4.70-6.10 [facility] Mdkowm1131-58-46 20:39:00 Test Item Value Reference Range Interpretation Comments Gram Stain Report Gram Stain Performed By: (test code = Gram [facility] [place] Stain Report) [facility] w/Gram Ghxdl2434-69-22 20:39:00 Test Item Value Reference Range Interpretation Comments Culture: Respiratory Normal Respiratory w/Gram Stain (test code Cecy Isolated = Culture: Respiratory w/Gram Stain) [facility] Hknlfy6958-88-51 20:39:00 Test Item Value Reference Range Interpretation Comments Gram Stain Report Gram Stain Performed By: (test code = Gram [facility] [place] Stain Report) [facility] w/Gram Rvrzg5693-43-67 20:39:00 Test Item Value Reference Range Interpretation Comments Culture: Respiratory Normal Respiratory w/Gram Stain (test code Cecy Isolated = Culture: Respiratory w/Gram Stain) [facility] Pucmmy9184-46-19 20:39:00 Test Item Value Reference Range Interpretation Comments Gram Stain Report Gram Stain Performed By: (test code = Gram [facility] [place] Stain Report) [facility] Respiratory w/Gram Unuux4373-97-34 20:39:00 Test Item Value Reference Range Interpretation Comments Culture: Respiratory Normal Respiratory w/Gram Stain (test code Cecy Isolated = Culture: Respiratory w/Gram Stain) [facility] [id number] 16:40:00 Test Item Value Reference Range Interpretation Comments Gluc BF Type (test Pleural *NA*(02/11/19 code = Gluc BF Type) 11:40 AM) [facility] YDJCZN0712-71-81 16:40:00 Test Item Value Reference Range Interpretation Comments Glucose BF (test code = Glucose BF) 73 [facility] [id number] 16:40:00 Test Item Value Reference Range Interpretation Comments Prot BF Type (test Pleural *NA*(02/11/19 code = Prot BF Type) 11:40 AM) [facility] [id number] 16:40:00 Test Item Value Reference Range Interpretation Comments Protein BF (test code = Protein BF) 4.1 [facility] [id number] 16:40:00 Test Item Value Reference Range Interpretation Comments LDH BF Type (test Pleural (02/11/19 11:40 code = LDH BF Type) AM) [facility] [id number] 16:40:00 Test Item Value Reference Range Interpretation Comments LDH BF (test code = LDH BF) [facility]94 [facility] Yrznrd0923-69-05 16:40:00 Test Item Value Reference Range Interpretation Comments Gram Stain Report Rare WBC's No Organisms (test code = Gram Seen Stain Report) [facility] Aspirate/Body Fluid/Actaqt1497-72-47 16:40:00 Test Item Value Reference Range Interpretation Comments Culture: Aspirate/Body Fluid/Tissue No Growth (test code = Culture: Aspirate/Body Fluid/Tissue) [facility]2019-05-29 16:40:00 Test Item Value Reference Range Interpretation Comments Gluc BF Type (test Pleural *NA*(02/11/19 code = Gluc BF Type) 11:40 AM) [facility]2019-05-29 16:40:00 Test Item Value Reference Range Interpretation Comments Glucose BF (test code = Glucose BF) 73 [facility] [id number] 16:40:00 Test Item Value Reference Range Interpretation Comments Prot BF Type (test Pleural *NA*(02/11/19 code = Prot BF Type) 11:40 AM) [facility]2019-05-29 16:40:00 Test Item Value Reference Range Interpretation Comments Protein BF (test code = Protein BF) 4.1 [facility]2019-05-29 16:40:00 Test Item Value Reference Range Interpretation Comments LDH BF Type (test Pleural (02/11/19 11:40 code = LDH BF Type) AM) [facility]2019-[facility] 16:40:00 Test Item Value Reference Range Interpretation Comments LDH BF (test code = LDH BF) [facility]94 [facility] [id number] 16:40:00 Test Item Value Reference Range Interpretation Comments Gram Stain Report Rare WBC's No Organisms (test code = Gram Seen Stain Report) [facility] Aspirate/Body Fluid/[id number] 16:40:00 Test Item Value Reference Range Interpretation Comments Culture: Aspirate/Body Fluid/Tissue No Growth (test code = Culture: Aspirate/Body Fluid/Tissue) [facility] [id number] 16:40:00 Test Item Value Reference Range Interpretation Comments Gluc BF Type (test Pleural *NA*(02/11/19 code = Gluc BF Type) 11:40 AM) [facility] [id number] 16:40:00 Test Item Value Reference Range Interpretation Comments Glucose BF (test code = Glucose BF) 73 [facility]2019-05-29 16:40:00 Test Item Value Reference Range Interpretation Comments Prot BF Type (test Pleural *NA*(02/11/19 code = Prot BF Type) 11:40 AM) [facility] [id number] 16:40:00 Test Item Value Reference Range Interpretation Comments Protein BF (test code = Protein BF) 4.1 [facility] [id number] 16:40:00 Test Item Value Reference Range Interpretation Comments LDH BF Type (test Pleural (02/11/19 11:40 code = LDH BF Type) AM) [facility]2019-05-29 16:40:00 Test Item Value Reference Range Interpretation Comments LDH BF (test code = LDH BF) [facility]94 [facility] [id number] 16:40:00 Test Item Value Reference Range Interpretation Comments Gram Stain Report Rare WBC's No Organisms (test code = Gram Seen Stain Report) [facility] Aspirate/Body Fluid/[id number] 16:40:00 Test Item Value Reference Range Interpretation Comments Culture: Aspirate/Body Fluid/Tissue No Growth (test code = Culture: Aspirate/Body Fluid/Tissue) [facility] - [id number] 16:21:00 Test Item Value Reference Range Interpretation Comments Source Strep (test code Urine *NA*(02/11/19 = Source Strep) 11:21 AM) [facility] - [id number] 16:21:00 Test Item Value Reference Range Interpretation Comments Strep pneumoniae Ag Negative (02/11/19 (test code = Strep 11:21 AM) pneumoniae Ag) [facility] - [id number] 16:21:00 Test Item Value Reference Range Interpretation Comments Source Strep (test code Urine *NA*(02/11/19 = Source Strep) 11:21 AM) [facility] - [id number] 16:21:00 Test Item Value Reference Range Interpretation Comments Strep pneumoniae Ag Negative (02/11/19 (test code = Strep 11:21 AM) pneumoniae Ag) [facility] [id number] 16:21:00 Test Item Value Reference Range Interpretation Comments Source Strep (test code Urine *NA*(02/11/19 = Source Strep) 11:21 AM) [facility] [id number] 16:21:00 Test Item Value Reference Range Interpretation Comments Strep pneumoniae Ag Negative (02/11/19 (test code = Strep 11:21 AM) pneumoniae Ag) [facility]2019-05-29 15:45:00 Test Item Value Reference Range Interpretation Comments Clarity BF (test code = Slight Cloudy (02/11/19 Clarity BF) 10:45 AM) [facility]2019-05-29 15:45:00 Test Item Value Reference Range Interpretation Comments Nucleated Cells BF (test code = 780 Nucleated Cells BF) [facility]2019-05-29 15:45:00 Test Item Value Reference Range Interpretation Comments Neutrophils BF (test code = Neutrophils 28 BF) [facility]2019-05-29 15:45:00 Test Item Value Reference Range Interpretation Comments RBC BF (test code = RBC BF) 3900 [facility]2019-05-29 15:45:00 Test Item Value Reference Range Interpretation Comments Macrophage BF (test code = Macrophage 51 BF) [facility]2019-05-29 15:45:00 Test Item Value Reference Range Interpretation Comments Lymph BF (test code = Lymph BF) 21 [facility]2019-05-29 15:45:00 Test Item Value Reference Range Interpretation Comments CellCnt BF Type (test Pleural (02/11/19 10:45 code = CellCnt BF Type) AM) [facility] [id number] 15:45:00 Test Item Value Reference Range Interpretation Comments Color BF (test code = Yellow (02/11/19 10:45 Color BF) AM) [facility] [id number] 15:45:00 Test Item Value Reference Range Interpretation Comments Troponin-I (test code no gt See_Comment [Auto mated message] The = Troponin-I) system which g enerated this result transmit neto reference range : <=0.40. The reference r william was not used to interpr et this result as karina l/abnormal. [facility] [id number] 15:45:00 Test Item Value Reference Range Interpretation Comments Clarity BF (test code = Slight Cloudy (02/11/19 Clarity BF) 10:45 AM) [facility] [id number] 15:45:00 Test Item Value Reference Range Interpretation Comments Nucleated Cells BF (test code = 780 Nucleated Cells BF) [facility] [id number] 15:45:00 Test Item Value Reference Range Interpretation Comments Neutrophils BF (test code = Neutrophils 28 BF) [facility] [id number] 15:45:00 Test Item Value Reference Range Interpretation Comments RBC BF (test code = RBC BF) 3900 [facility] [id number] 15:45:00 Test Item Value Reference Range Interpretation Comments Macrophage BF (test code = Macrophage 51 BF) [facility] [id number] 15:45:00 Test Item Value Reference Range Interpretation Comments Lymph BF (test code = Lymph BF) 21 [facility] [id number] 15:45:00 Test Item Value Reference Range Interpretation Comments CellCnt BF Type (test Pleural (02/11/19 10:45 code = CellCnt BF Type) AM) [facility] [id number] 15:45:00 Test Item Value Reference Range Interpretation Comments Color BF (test code = Yellow (02/11/19 10:45 Color BF) AM) [facility] [id number] 15:45:00 Test Item Value Reference Range Interpretation Comments Troponin-I (test code no gt See_Comment [Auto mated message] The = Troponin-I) system which g enerated this result transmit neto reference range : <=0.40. The reference r william was not used to interpr et this result as karina l/abnormal. [facility] [id number] 15:45:00 Test Item Value Reference Range Interpretation Comments Clarity BF (test code = Slight Cloudy (02/11/19 Clarity BF) 10:45 AM) [facility] [id number] 15:45:00 Test Item Value Reference Range Interpretation Comments Nucleated Cells BF (test code = 780 Nucleated Cells BF) [facility] [id number] 15:45:00 Test Item Value Reference Range Interpretation Comments Neutrophils BF (test code = Neutrophils 28 BF) [facility] [id number] 15:45:00 Test Item Value Reference Range Interpretation Comments RBC BF (test code = RBC BF) 3900 [facility] [id number] 15:45:00 Test Item Value Reference Range Interpretation Comments Macrophage BF (test code = Macrophage 51 BF) [facility] [id number] 15:45:00 Test Item Value Reference Range Interpretation Comments Lymph BF (test code = Lymph BF) 21 [facility] [id number] 15:45:00 Test Item Value Reference Range Interpretation Comments CellCnt BF Type (test Pleural (02/11/19 10:45 code = CellCnt BF Type) AM) [facility] [id number] 15:45:00 Test Item Value Reference Range Interpretation Comments Color BF (test code = Yellow (02/11/19 10:45 Color BF) AM) [facility] [id number] 15:45:00 Test Item Value Reference Range Interpretation Comments Troponin-I (test code no gt See_Comment [Auto mated message] The = Troponin-I) system which g enerated this result transmit neto reference range : <=0.40. The reference r william was not used to interpr et this result as karina l/abnormal. [facility]PerTrac Financial [id number] 13:14:00 Test Item Value Reference Range Interpretation Comments Troponin-I (test code no gt See_Comment [Auto mated message] The = Troponin-I) system which g enerated this result transmit neto reference range : <=0.40. The reference r william was not used to interpr et this result as karina l/abnormal. [facility]Si[facility] [id number] 13:14:00 Test Item Value Reference Range Interpretation Comments Troponin-I (test code no gt See_Comment [Auto mated message] The = Troponin-I) system which g enerated this result transmit neto reference range : <=0.40. The reference r william was not used to interpr et this result as karina l/abnormal. [facility]PerTr[facility]WE[facility] [id number] 13:14:00 Test Item Value Reference Range Interpretation Comments Troponin-I (test code no gt See_Comment [Auto mated message] The = Troponin-I) system which g enerated this result transmit neto reference range : <=0.40. The reference r william was not used to interpr et this result as karina l/abnormal. [facility]PerTr[facility] SolutionsWE[facility]LA[facility] [id number] 09:11:00 Test Item Value Reference Range Interpretation Comments Troponin-I (test code no gt See_Comment [Auto mated message] The = Troponin-I) system which g enerated this result transmit neto reference range : <=0.40. The reference r william was not used to interpr et this result as karina l/abnormal. [facility] [employer] [id number] 09:11:00 Test Item Value Reference Range Interpretation Comments Phosphorus (test code = Phosphorus) 2.4 2.5-4.5 [facility] [employer] [id number] 09:11:00 Test Item Value Reference Range Interpretation Comments Magnesium Lvl (test code = Magnesium 2.1 1.8-2.4 Lvl) [facility] [id number] 09:11:00 Test Item Value Reference Range Interpretation Comments Procalcitonin Lvl (test 0.45 See_Comment [Au tomated message] code = Procalcitonin Lvl) e system which generated this result transmitted ref erence range: <=0.10. The reference range was not used to interpr et this result as normal/abnormal . [facility] Tyl[id number] 09:11:00 Test Item Value Reference Range Interpretation Comments CO2 (test code = CO2) 23 24-32 [facility]QjxuyfrEOPMTJZKQNWW6101-17-81 09:11:00 Test Item Value Reference Range Interpretation Comments Calcium Lvl (test code = Calcium Lvl) 8.0 8.5-10.5 [facility] HospitalNkdzdulVPKNEWZWHGRH6339-04-04 09:11:00 Test Item Value Reference Range Interpretation Comments AGAP (test code = AGAP) 14.4 10.0-20.0 [facility] Hospital[id number] 09:11:00 Test Item Value Reference Range Interpretation Comments eGFR (test code = eGFR) 94 [facility] HospitalSrmffuwKJJQVLACFUXS0616-99-18 09:11:00 Test Item Value Reference Range Interpretation Comments BUN (test code = BUN) 10 7-22 [facility] HospitalNdlisldBCRRONUGLUWR0474-44-70 09:11:00 Test Item Value Reference Range Interpretation Comments Creatinine Lvl (test code = Creatinine 0.71 0.50-1.40 Lvl) [facility] HospitalLocovxfCHBSUWGCAIHI5151-88-09 09:11:00 Test Item Value Reference Range Interpretation Comments Sodium Lvl (test code = Sodium Lvl) 134 135-145 [facility] HospitalEhqzoyoWABTGDXMMQGC5155-45-75 09:11:00 Test Item Value Reference Range Interpretation Comments Potassium Lvl (test code = Potassium 3.4 3.5-5.1 Lvl) [facility] HospitalKxziftcUIRMMLEIQROY0316-56-93 09:11:00 Test Item Value Reference Range Interpretation Comments Chloride Lvl (test code = Chloride Lvl) 100 95-109 [facility] HospitalKovuuwuOKOLRZSBRFYH8023-42-93 09:11:00 Test Item Value Reference Range Interpretation Comments Glucose Lvl (test code = Glucose Lvl) 83 70-99 [facility]CARD[facility] [id number] 09:11:00 Test Item Value Reference Range Interpretation Comments Troponin-I (test code no gt See_Comment [Auto mated message] The = Troponin-I) system which g enerated this result transmit neto reference range : <=0.40. The reference r william was not used to interpr et this result as karina l/abnormal. [facility] [id number] 09:11:00 Test Item Value Reference Range Interpretation Comments Phosphorus (test code = Phosphorus) 2.4 2.5-4.5 [facility] CenterSolexant [id number] 09:11:00 Test Item Value Reference Range Interpretation Comments Magnesium Lvl (test code = Magnesium 2.1 1.8-2.4 Lvl) [facility]2019-05-29 09:11:00 Test Item Value Reference Range Interpretation Comments Procalcitonin Lvl (test 0.45 See_Comment [Au tomated message] code = Procalcitonin Lvl) Th e system which generated this result transmitted ref erence range: <=0.10. The reference range was not used to interpr et this result as normal/abnormal . [facility] HospitalDrfpmqdBBWCSCERPUJF8328-06-95 09:11:00 Test Item Value Reference Range Interpretation Comments CO2 (test code = CO2) [facility]2019-05-29 09:11:00 Test Item Value Reference Range Interpretation Comments Magnesium Lvl (test code = Magnesium 2.1 1.8-2.4 Lvl) [facility]2019-05-29 09:11:00 Test Item Value Reference Range Interpretation Comments Procalcitonin Lvl (test 0.45 See_Comment [Au tomated message] code = Procalcitonin Lvl) Th e system which generated this result transmitted ref erence range: <=0.10. The reference range was not used to interpr et this result as normal/abnormal . [facility] HospitalIeakfspUDMQLWTGYGRO5741-14-91 09:11:00 Test Item Value Reference Range Interpretation Comments CO2 (test code = CO2) [facility] Hospi[id number] 09:11:00 Test Item Value Reference Range Interpretation Comments Calcium Lvl (test code = Calcium Lvl) 8.0 8.5-10.5 [facility] HospitalRlmplcuWKOQYMQAMNJN5408-78-61 09:11:00 Test Item Value Reference Range Interpretation Comments AGAP (test code = AGAP) 14.4 10.0-20.0 [facility] HospitalRjwwpmkRFLJMAPUNZGO9997-97-20 09:11:00 Test Item Value Reference Range Interpretation Comments eGFR (test code = eGFR) 94 [facility] HospitalLctvwqdULVJVQFUOYHY7422-80-08 09:11:00 Test Item Value Reference Range Interpretation Comments BUN (test code = BUN) 10 7-22 [facility] HospitalManfmxrQJCBSJFRUBRM4495-20-32 09:11:00 Test Item Value Reference Range Interpretation Comments Creatinine Lvl (test code = Creatinine 0.71 0.50-1.40 Lvl) [facility] HospitalVcssnvwQOPYAIILNMTN0276-47-35 09:11:00 Test Item Value Reference Range Interpretation Comments Sodium Lvl (test code = Sodium Lvl) 134 135-145 [facility] HospitalXzyfhjiPIVEYWSBIHOX4820-82-79 09:11:00 Test Item Value Reference Range Interpretation Comments Potassium Lvl (test code = Potassium 3.4 3.5-5.1 Lvl) [facility] HospitalTecitvqLAJUPKBQHRAE6734-20-18 09:11:00 Test Item Value Reference Range Interpretation Comments Chloride Lvl (test code = Chloride Lvl) 100 95-109 [facility] HospitalEtuynxhFBFNOPUIWQFF9547-45-03 09:11:00 Test Item Value Reference Range Interpretation Comments Glucose Lvl (test code = Glucose Lvl) 83 70-99 [facility] [id number] 09:11:00 Test Item Value Reference Range Interpretation Comments Troponin-I (test code no gt See_Comment [Auto mated message] The = Troponin-I) system which g enerated this result transmit neto reference range : <=0.40. The reference r william was not used to interpr et this result as karina l/abnormal. [facility] CenterCHEM [id number] 09:11:00 Test Item Value Reference Range Interpretation Comments Phosphorus (test code = Phosphorus) 2.4 2.5-4.5 [facility] HospitalXuvxoseUSRKQSYASTNW1345-02-62 09:11:00 Test Item Value Reference Range Interpretation Comments Calcium Lvl (test code = Calcium Lvl) 8.0 8.5-10.5 [facility] HospitalAehaqdoNWFLRYHAEJKT9464-11-82 09:11:00 Test Item Value Reference Range Interpretation Comments AGAP (test code = AGAP) 14.4 10.0-20.0 [facility] HospitalMgoknsqTIIXJZLNYQWW8032-11-68 09:11:00 Test Item Value Reference Range Interpretation Comments eGFR (test code = eGFR) 94 [facility] HospitalLyeafkrEINGRSFMLRIT4463-34-77 09:11:00 Test Item Value Reference Range Interpretation Comments BUN (test code = BUN) 10 7-22 [facility] HospitalUvsduozZLIVFYKDPALX8786-23-60 09:11:00 Test Item Value Reference Range Interpretation Comments Creatinine Lvl (test code = Creatinine 0.71 0.50-1.40 Lvl) [facility] HospitalJpiafdpXHXTHAXZKPCZ1921-24-42 09:11:00 Test Item Value Reference Range Interpretation Comments Sodium Lvl (test code = Sodium Lvl) 134 135-145 [facility] HospitalNeekfusAAAUYKVQHUAI8935-41-08 09:11:00 Test Item Value Reference Range Interpretation Comments Potassium Lvl (test code = Potassium 3.4 3.5-5.1 Lvl) [facility] HospitalDhfeancYKFDWHYKHTGI1272-95-49 09:11:00 Test Item Value Reference Range Interpretation Comments Chloride Lvl (test code = Chloride Lvl) 100 95-109 [facility] HospitalBabcydgFYXKLPIMGKKX5549-75-65 09:11:00 Test Item Value Reference Range Interpretation Comments Glucose Lvl (test code = Glucose Lvl) 83 70-99 [facility]2019-05-29 03:37:00 Test Item Value Reference Range Interpretation Comments Source Respiratory Nasophrngl Swb Panel PCR (test code = *NA*(02/10/19 10:37 PM) Source Respiratory Panel PCR) [facility]2019-05-29 03:37:00 Test Item Value Reference Range Interpretation Comments Influenza A PCR (test Negative (02/10/19 code = Influenza A PCR) 10:37 PM) [facility]2019-05-29 03:37:00 Test Item Value Reference Range Interpretation Comments Influenza B PCR (test Negative (02/10/19 code = Influenza B PCR) 10:37 PM) [facility]2019-05-29 03:37:00 Test Item Value Reference Range Interpretation Comments RSV PCR (test code = Negative (02/10/19 10:37 RSV PCR) PM) [facility]2019-05-29 03:37:00 Test Item Value Reference Range Interpretation Comments Source Respiratory Nasophrngl Swb Panel PCR (test code = *NA*(02/10/19 10:37 PM) Source Respiratory Panel PCR) [facility]2019-05-29 03:37:00 Test Item Value Reference Range Interpretation Comments Influenza A PCR (test Negative (02/10/19 code = Influenza A PCR) 10:37 PM) [facility]2019-05-29 03:37:00 Test Item Value Reference Range Interpretation Comments Influenza B PCR (test Negative (02/10/19 code = Influenza B PCR) 10:37 PM) [facility] [id number] 03:37:00 Test Item Value Reference Range Interpretation Comments RSV PCR (test code = Negative (02/10/19 10:37 RSV PCR) PM) [facility] [id number] 03:37:00 Test Item Value Reference Range Interpretation Comments Source Respiratory Nasophrngl Swb Panel PCR (test code = *NA*(02/10/19 10:37 PM) Source Respiratory Panel PCR) [facility] [id number] 03:37:00 Test Item Value Reference Range Interpretation Comments Influenza A PCR (test Negative (02/10/19 code = Influenza A PCR) 10:37 PM) [facility] [id number] 03:37:00 Test Item Value Reference Range Interpretation Comments Influenza B PCR (test Negative (02/10/19 code = Influenza B PCR) 10:37 PM) [facility] [id number] 03:37:00 Test Item Value Reference Range Interpretation Comments RSV PCR (test code = Negative (02/10/19 10:37 RSV PCR) PM) [facility]BA[facility] - [id number] 00:18:00 Test Item Value Reference Range Interpretation Comments Source Strep (test code Urine *NA*(02/10/19 = Source Strep) 7:18 PM) [facility] - [id number] 00:18:00 Test Item Value Reference Range Interpretation Comments Strep pneumoniae Ag Negative (02/10/19 (test code = Strep 7:18 PM) pneumoniae Ag) [facility] [id number] 00:18:00 Test Item Value Reference Range Interpretation Comments UA Urobilinogen (test code = UA <=1.0 mg/dL 0.1-1.0 Urobilinogen) [facility] [id number] 00:18:00 Test Item Value Reference Range Interpretation Comments UA Sq Epi (test code = UA Sq Epi) None [facility]en [facility] [id number] 00:18:00 Test Item Value Reference Range Interpretation Comments UA WBC (test code = 1 See_Comment [Automa neto message] The UA WBC) system which ge nerated this result transmit neto reference range : <=5. The reference range was not used to interpr et this result as karina l/abnormal. [facility] [id number] 00:18:00 Test Item Value Reference Range Interpretation Comments UA Mucus (test code = UA Mucus) Many /LPF [facility] AND [id number] 00:18:00 Test Item Value Reference Range Interpretation Comments UA Leuk Est (test Negative (02/10/19 7:18 code = UA Leuk Est) PM) [facility] AND [id number] 00:18:00 Test Item Value Reference Range Interpretation Comments UA Nitrite (test code Negative (02/10/19 7:18 = UA Nitrite) PM) [facility] AND [id number] 00:18:00 Test Item Value Reference Range Interpretation Comments UA RBC (test code = 8 See_Comment [Automa neto message] The UA RBC) system which ge nerated this result transmit neto reference range : <=2. The reference range was not used to interpr et this result as karina l/abnormal. [facility] AND [id number] 00:18:00 Test Item Value Reference Range Interpretation Comments UA Bili (test code = Negative *NA*(02/10/19 UA Bili) 7:18 PM) [facility] AND [id number] 00:18:00 Test Item Value Reference Range Interpretation Comments UA Blood (test code = Negative (02/10/19 7:18 UA Blood) PM) [facility] AND [id number] 00:18:00 Test Item Value Reference Range Interpretation Comments UA Turbidity (test code Slight *ABN*(02/10/19 = UA Turbidity) 7:18 PM) [facility] AND [id number] 00:18:00 Test Item Value Reference Range Interpretation Comments UA Color (test code = [place] *ABN*(02/10/19 UA Color) 7:18 PM) [facility] AND [id number] 00:18:00 Test Item Value Reference Range Interpretation Comments UA Spec Grav (test code = UA Spec 1.024 1 Grav) [facility] AND [id number] 00:18:00 Test Item Value Reference Range Interpretation Comments UA Glucose (test code = UA Negative mg/dL Glucose) [facility] AND [id number] 00:18:00 Test Item Value Reference Range Interpretation Comments UA Protein (test code = UA Protein) 100 mg/dL [facility] AND [id number] 00:18:00 Test Item Value Reference Range Interpretation Comments UA pH (test code = UA pH) 5.0 1 5.0-8.0 [facility] AND [id number] 00:18:00 Test Item Value Reference Range Interpretation Comments UA Ketones (test code = UA Ketones) 20 mg/dL [facility] [id number] 00:18:00 Test Item Value Reference Range Interpretation Comments Source Strep (test code Urine *NA*(02/10/19 = Source Strep) 7:18 PM) [facility] [id number] 00:18:00 Test Item Value Reference Range Interpretation Comments Strep pneumoniae Ag Negative (02/10/19 (test code = Strep 7:18 PM) pneumoniae Ag) [facility] AND [id number] 00:18:00 Test Item Value Reference Range Interpretation Comments UA Urobilinogen (test code = UA <=1.0 mg/dL 0.1-1.0 Urobilinogen) [facility] AND [id number] 00:18:00 Test Item Value Reference Range Interpretation Comments UA Sq Epi (test code = UA Sq Epi) None Seen [facility] AND [id number] 00:18:00 Test Item Value Reference Range Interpretation Comments UA WBC (test code = 1 See_Comment [Automa neto message] The UA WBC) system which ge nerated this result transmit neto reference range : <=5. The reference range was not used to interpr et this result as karina l/abnormal. [facility] AND [id number] 00:18:00 Test Item Value Reference Range Interpretation Comments UA Mucus (test code = UA Mucus) Many /LPF [facility] AND [id number] 00:18:00 Test Item Value Reference Range Interpretation Comments UA Leuk Est (test Negative (02/10/19 7:18 code = UA Leuk Est) PM) [facility] AND [id number] 00:18:00 Test Item Value Reference Range Interpretation Comments UA Nitrite (test code Negative (02/10/19 7:18 = UA Nitrite) PM) [facility] AND [id number] 00:18:00 Test Item Value Reference Range Interpretation Comments UA RBC (test code = 8 See_Comment [Automa neot message] The UA RBC) system which ge nerated this result transmit neto reference range : <=2. The reference range was not used to interpr et this result as karina l/abnormal. [facility] AND [id number] 00:18:00 Test Item Value Reference Range Interpretation Comments UA Bili (test code = Negative *NA*(02/10/19 UA Bili) 7:18 PM) [facility] AND [id number] 00:18:00 Test Item Value Reference Range Interpretation Comments UA Blood (test code = Negative (02/10/19 7:18 UA Blood) PM) [facility] AND [id number] 00:18:00 Test Item Value Reference Range Interpretation Comments UA Turbidity (test code Slight *ABN*(02/10/19 = UA Turbidity) 7:18 PM) [facility] AND [id number] 00:18:00 Test Item Value Reference Range Interpretation Comments UA Color (test code = [place] *ABN*(02/10/19 UA Color) 7:18 PM) [facility] AND [id number] 00:18:00 Test Item Value Reference Range Interpretation Comments UA Spec Grav (test code = UA Spec 1.024 1 Grav) [facility] AND [id number] 00:18:00 Test Item Value Reference Range Interpretation Comments UA Glucose (test code = UA Negative mg/dL Glucose) [facility] AND [id number] 00:18:00 Test Item Value Reference Range Interpretation Comments UA Protein (test code = UA Protein) 100 mg/dL [facility] AND [id number] 00:18:00 Test Item Value Reference Range Interpretation Comments UA pH (test code = UA pH) 5.0 1 5.0-8.0 [facility] AND [id number] 00:18:00 Test Item Value Reference Range Interpretation Comments UA Ketones (test code = UA Ketones) 20 mg[facility] [id number] 00:18:00 Test Item Value Reference Range Interpretation Comments Source Strep (test code Urine *NA*(02/10/19 = Source Strep) 7:18 PM) [facility] [id number] 00:18:00 Test Item Value Reference Range Interpretation Comments Strep pneumoniae Ag Negative (02/10/19 (test code = Strep 7:18 PM) pneumoniae Ag) [facility] AND [id number] 00:18:00 Test Item Value Reference Range Interpretation Comments UA Urobilinogen (test code = UA <=1.0 mg/dL 0.1-1.0 Urobilinogen) [facility] AND [id number] 00:18:00 Test Item Value Reference Range Interpretation Comments UA Sq Epi (test code = UA Sq Epi) None Seen [facility] AND [id number] 00:18:00 Test Item Value Reference Range Interpretation Comments UA WBC (test code = 1 See_Comment [Automa neto message] The UA WBC) system which ge nerated this result transmit neto reference range : <=5. The reference range was not used to interpr et this result as karina l/abnormal. [facility] AND [id number] 00:18:00 Test Item Value Reference Range Interpretation Comments UA Mucus (test code = UA Mucus) Many /LPF [facility] AND [id number] 00:18:00 Test Item Value Reference Range Interpretation Comments UA Leuk Est (test Negative (02/10/19 7:18 code = UA Leuk Est) PM) [facility] AND [id number] 00:18:00 Test Item Value Reference Range Interpretation Comments UA Nitrite (test code Negative (02/10/19 7:18 = UA Nitrite) PM) [facility] AND [id number] 00:18:00 Test Item Value Reference Range Interpretation Comments UA RBC (test code = 8 See_Comment [Automa neto message] The UA RBC) system which ge nerated this result transmit neot reference range : <=2. The reference range was not used to interpr et this result as karina l/abnormal. [facility] AND [id number] 00:18:00 Test Item Value Reference Range Interpretation Comments UA Bili (test code = Negative *NA*(02/10/19 UA Bili) 7:18 PM) [facility] [id number] 00:18:00 Test Item Value Reference Range Interpretation Comments UA Blood (test code = Negative (02/10/19 7:18 UA Blood) PM) [facility] AND [id number] 00:18:00 Test Item Value Reference Range Interpretation Comments UA Turbidity (test code Slight *ABN*(02/10/19 = UA Turbidity) 7:18 PM) [facility] AND [id number] 00:18:00 Test Item Value Reference Range Interpretation Comments UA Color (test code = [place] *ABN*(02/10/19 UA Color) 7:18 PM) [facility] AND [id number] 00:18:00 Test Item Value Reference Range Interpretation Comments UA Spec Grav (test code = UA Spec 1.024 1 Grav) [facility] AND [id number] 00:18:00 Test Item Value Reference Range Interpretation Comments UA Glucose (test code = UA Negative mg/dL Glucose) [facility] AND [id number] 00:18:00 Test Item Value Reference Range Interpretation Comments UA Protein (test code = UA Protein) 100 mg/dL [facility] AND [id number] 00:18:00 Test Item Value Reference Range Interpretation Comments UA pH (test code = UA pH) 5.0 1 5.0-8.0 [facility] AND [id number] 00:18:00 Test Item Value Reference Range Interpretation Comments UA Ketones (test code = UA Ketones) 20 mg/dL [facility] [id number] 23:01:00 Test Item Value Reference Range Interpretation Comments BNP (test code = BNP) [facility] [id number] 23:01:00 Test Item Value Reference Range Interpretation Comments eGFR (test code = eGFR) 86 [facility] [id number] 23:01:00 Test Item Value Reference Range Interpretation Comments BUN (test code = BUN) 14 7-22 [facility] [id number] 23:01:00 Test Item Value Reference Range Interpretation Comments Creatinine Lvl (test code = Creatinine 0.87 0.50-1.40 Lvl) [facility]2019-05-28 23:01:00 Test Item Value Reference Range Interpretation Comments Sodium Lvl (test code = Sodium Lvl) 133 135-145 [facility]2019-05-28 23:01:00 Test Item Value Reference Range Interpretation Comments Potassium Lvl (test code = Potassium 4.0 3.5-5.1 Lvl) [facility]2019-05-28 23:01:00 Test Item Value Reference Range Interpretation Comments CO2 (test code = CO2) 25 24-32 [facility]2019-05-28 23:01:00 Test Item Value Reference Range Interpretation Comments Calcium Lvl (test code = Calcium Lvl) 8.3 8.5-10.5 [facility]2019-05-28 23:01:00 Test Item Value Reference Range Interpretation Comments Chloride Lvl (test code = Chloride Lvl) 97 95-109 [facility]2019-05-28 23:01:00 Test Item Value Reference Range Interpretation Comments ALT (test code = ALT) 20 See_Comment [Auto mated message] The system which ge nerated this result transmit neto reference range : <=65. The reference range was not used to interpr et this result as karina l/abnormal. [facility]2019-05-28 23:01:00 Test Item Value Reference Range Interpretation Comments Total Protein (test code = Total 7.2 6.4-8.4 Protein) [facility]2019-05-28 23:01:00 Test Item Value Reference Range Interpretation Comments Albumin Lvl (test code = Albumin Lvl) 2.4 3.5-5.0 [facility]2019-05-28 23:01:00 Test Item Value Reference Range Interpretation Comments AST (test code = AST) 19 See_Comment [Auto mated message] The system which ge nerated this result transmit neto reference range : <=37. The reference range was not used to interpr et this result as karina l/abnormal. [facility]2019-05-28 23:01:00 Test Item Value Reference Range Interpretation Comments Bili Total (test code = Bili Total) 0.8 0.2-1.3 [place] [id number] 23:01:00 Test Item Value Reference Range Interpretation Comments Alk Phos (test code = Alk Phos) 51 39-136 [facility]2019-05-28 23:01:00 Test Item Value Reference Range Interpretation Comments Glucose Lvl (test code = Glucose Lvl) 99 70-99 [facility]2019-05-28 23:01:00 Test Item Value Reference Range Interpretation Comments A/G Ratio (test code = A/G Ratio) 0.5 1 0.7-1.6 [facility]2019-05-28 23:01:00 Test Item Value Reference Range Interpretation Comments Globulin (test code = Globulin) 4.8 2.7-4.2 [facility]2019-05-28 23:01:00 Test Item Value Reference Range Interpretation Comments B/C Ratio (test code = B/C Ratio) 16 1 6-25 [place] [id number] 23:01:00 Test Item Value Reference Range Interpretation Comments AGAP (test code = AGAP) 15.0 10.0-20.0 [place] [id number] 23:01:00 Test Item Value Reference Range Interpretation Comments Lactic Acid Lvl (test code = Lactic 1.0 0.5-2.2 Acid Lvl) [facility] [id number] 23:01:00 Test Item Value Reference Range Interpretation Comments Hgb (test code = Hgb) 11.3 14.0-18.0 [facility] [id number] 23:01:00 Test Item Value Reference Range Interpretation Comments WBC (test code = WBC) 4.4 3.7-10.4 [place] [id number] 23:01:00 Test Item Value Reference Range Interpretation Comments MCV (test code = MCV) 107.0 80.0-94.0 [facility] [id number] 23:01:00 Test Item Value Reference Range Interpretation Comments Hct (test code = Hct) 33.1 42.0-54.0 [facility] [id number] 23:01:00 Test Item Value Reference Range Interpretation Comments RBC (test code = RBC) 3.10 4.70-6.10 [facility] CenterDdellpuHRFTYQRDEJ7169-49-00 23:01:00 Test Item Value Reference Range Interpretation Comments Platelet (test code = Platelet) 356 133-450 [facility] [id number] 23:01:00 Test Item Value Reference Range Interpretation Comments MCHC (test code = MCHC) 34.1 32.0-36.0 [facility] CenterVzjhfelYWXYRINOJD0615-32-00 23:01:00 Test Item Value Reference Range Interpretation Comments MCH (test code = MCH) 36.5 pg 27.0-31.0 [facility] CenterBtmhndxKXZTDBYCSZ8603-06-55 23:01:00 Test Item Value Reference Range Interpretation Comments RDW (test code = RDW) 21.0 11.5-14.5 [facility] [id number] 23:01:00 Test Item Value Reference Range Interpretation Comments MPV (test code = MPV) 8.5 7.4-10.4 [facility] [id number] 23:01:00 Test Item Value Reference Range Interpretation Comments Monocytes # (test code 0.7 See_Comment [Aut omated message] The = Monocytes #) system which generated this result tra nsmitted reference range : <=0.8. The reference r william was not used to int erpret this result as normal/abnormal . [facility] CenterYdudyyxTTUYWASFAB9786-20-36 23:01:00 Test Item Value Reference Range Interpretation Comments Lymphocytes # (test code = Lymphocytes 0.5 1.0-5.5 #) [facility] [id number] 23:01:00 Test Item Value Reference Range Interpretation Comments Macrocyte (test code = 1+ *ABN*(02/10/19 Macrocyte) 6:01 PM) [facility] CenterIosppviPSNGLAAKQR2669-44-04 23:01:00 Test Item Value Reference Range Interpretation Comments Segs (test code = Segs) 71.6 45.0-75.0 [facility] CenterWghqwnfRUNEUNGYBP7932-97-61 23:01:00 Test Item Value Reference Range Interpretation Comments Neutrophils # (test code = Neutrophils 3.1 1.5-8.1 #) [facility] CenterPdduaxqHSCRPWVVJG9299-48-53 23:01:00 Test Item Value Reference Range Interpretation Comments Basophils (test code = 0.4 See_Comment [Aut omated message] The Basophils) system which ge nerated this result tra nsmitted reference range : <=1.0. The reference r william was not used to int erpret this result as normal/abnormal . [id number] 23:01:00 Test Item Value Reference Range Interpretation Comments Eosinophils (test code = 0.1 See_Comment [A utomated message] The Eosinophils) system which ge nerated this result tra nsmitted reference range : <=4.0. The reference r william was not used to int erpret this result as normal/abnormal . [facility] SaultAjrylknAHBHPNBQJD6025-51-45 23:01:00 Test Item Value Reference Range Interpretation Comments Lymphocytes (test code = Lymphocytes) 11.6 20.0-40.0 [facility]StpmjxkLTLVUUNNFF7554-44-61 23:01:00 Test Item Value Reference Range Interpretation Comments Monocytes (test code = Monocytes) 16.3 2.0-12.0 [facility] CenterCARD[facility] [id number] 23:01:00 Test Item Value Reference Range Interpretation Comments BNP (test code = BNP) 46 [facility] [id number] 23:01:00 Test Item Value Reference Range Interpretation Comments eGFR (test code = eGFR) 86 [facility]2019-05-28 23:01:00 Test Item Value Reference Range Interpretation Comments BUN (test code = BUN) 14 7-22 [facility]2019-05-28 23:01:00 Test Item Value Reference Range Interpretation Comments Creatinine Lvl (test code = Creatinine 0.87 0.50-1.40 Lvl) [facility]2019-05-28 23:01:00 Test Item Value Reference Range Interpretation Comments Sodium Lvl (test code = Sodium Lvl) 133 135-145 [facility]2019-05-28 23:01:00 Test Item Value Reference Range Interpretation Comments Potassium Lvl (test code = Potassium 4.0 3.5-5.1 Lvl) [facility] [id number] 23:01:00 Test Item Value Reference Range Interpretation Comments CO2 (test code = CO2) 25 24-32 [facility]2019-05-28 23:01:00 Test Item Value Reference Range Interpretation Comments Calcium Lvl (test code = Calcium Lvl) 8.3 8.5-10.5 [facility]2019-05-28 23:01:00 Test Item Value Reference Range Interpretation Comments Chloride Lvl (test code = Chloride Lvl) 97 95-109 [facility] CenterSole[facility] [id number] 23:01:00 Test Item Value Reference Range Interpretation Comments ALT (test code = ALT) 20 See_Comment [Auto mated message] The system which ge nerated this result transmit neto reference range : <=65. The reference range was not used to interpr et this result as karina l/abnormal. [facility] [id number] 23:01:00 Test Item Value Reference Range Interpretation Comments Total Protein (test code = Total 7.2 6.4-8.4 Protein) [facility]2019-05-28 23:01:00 Test Item Value Reference Range Interpretation Comments Albumin Lvl (test code = Albumin Lvl) 2.4 3.5-5.0 [facility] [id number] 23:01:00 Test Item Value Reference Range Interpretation Comments AST (test code = AST) 19 See_Comment [Auto mated message] The system which ge nerated this result transmit neto reference range : <=37. The reference range was not used to interpr et this result as karina l/abnormal. [facility] [id number] 23:01:00 Test Item Value Reference Range Interpretation Comments Bili Total (test code = Bili Total) 0.8 0.2-1.3 [facility] [id number] 23:01:00 Test Item Value Reference Range Interpretation Comments Alk Phos (test code = Alk Phos) 51 39-136 [facility] [id number] 23:01:00 Test Item Value Reference Range Interpretation Comments Glucose Lvl (test code = Glucose Lvl) 99 70-99 [facility] [id number] 23:01:00 Test Item Value Reference Range Interpretation Comments A/G Ratio (test code = A/G Ratio) 0.5 1 0.7-1.6 [facility]2019-05-28 23:01:00 Test Item Value Reference Range Interpretation Comments Globulin (test code = Globulin) 4.8 2.7-4.2 [facility] [id number] 23:01:00 Test Item Value Reference Range Interpretation Comments B/C Ratio (test code = B/C Ratio) 16 1 6-25 [facility]2019-05-28 23:01:00 Test Item Value Reference Range Interpretation Comments AGAP (test code = AGAP) 15.0 10.0-20.0 [facility]2019-05-28 23:01:00 Test Item Value Reference Range Interpretation Comments Lactic Acid Lvl (test code = Lactic 1.0 0.5-2.2 Acid Lvl) [facility] CenterEswrrjkWTFTMRJFPB7388-31-46 23:01:00 Test Item Value Reference Range Interpretation Comments Hgb (test code = Hgb) 11.3 14.0-18.0 [facility] [id number] 23:01:00 Test Item Value Reference Range Interpretation Comments WBC (test code = WBC) 4.4 3.7-10.4 [facility] CenterXfmzvfaRSMQLCUVBF5768-97-08 23:01:00 Test Item Value Reference Range Interpretation Comments MCV (test code = MCV) 107.0 80.0-94.0 [facility] CenterGxajurmDMIZHHGSYQ1642-32-90 23:01:00 Test Item Value Reference Range Interpretation Comments Hct (test code = Hct) 33.1 42.0-54.0 [facility] CenterNeiqudnQYSGHFAJNY7879-21-94 23:01:00 Test Item Value Reference Range Interpretation Comments RBC (test code = RBC) 3.10 4.70-6.10 [facility] CenterEeommfuOYBJHNDMGY6293-58-35 23:01:00 Test Item Value Reference Range Interpretation Comments Platelet (test code = Platelet) 356 133-450 [facility] CenterNrdzwhaKVXSEVLVZQ2662-97-78 23:01:00 Test Item Value Reference Range Interpretation Comments MCHC (test code = MCHC) 34.1 32.0-36.0 [facility] CenterZzmtxhiBZPRWQFYSJ4911-22-97 23:01:00 Test Item Value Reference Range Interpretation Comments MCH (test code = MCH) 36.5 pg 27.0-31.0 [facility] CenterPgaokquGFZTVOJVUZ5831-20-14 23:01:00 Test Item Value Reference Range Interpretation Comments RDW (test code = RDW) 21.0 11.5-14.5 [facility] [id number] 23:01:00 Test Item Value Reference Range Interpretation Comments MPV (test code = MPV) 8.5 7.4-10.4 [facility] CenterAmokcfeRVGZVZSPPT4474-02-68 23:01:00 Test Item Value Reference Range Interpretation Comments Monocytes # (test code 0.7 See_Comment [Aut omated message] The = Monocytes #) system which generated this result tra nsmitted reference range : <=0.8. The reference r william was not used to int erpret this result as normal/abnormal . [facility] CenterNofpkwcTJOTBHCHVI7176-64-25 23:01:00 Test Item Value Reference Range Interpretation Comments Lymphocytes # (test code = Lymphocytes 0.5 1.0-5.5 #) [facility] CenterOxncwcaYVRTAACBUY6644-26-02 23:01:00 Test Item Value Reference Range Interpretation Comments Macrocyte (test code = 1+ *ABN*(02/10/19 Macrocyte) 6:01 PM) [facility] CenterFbskmhnBPJHYFIKCU8194-47-47 23:01:00 Test Item Value Reference Range Interpretation Comments Segs (test code = Segs) 71.6 45.0-75.0 [facility] CenterBursynlLZIXDWANFI9352-86-79 23:01:00 Test Item Value Reference Range Interpretation Comments Neutrophils # (test code = Neutrophils 3.1 1.5-8.1 #) [facility] CenterOstgxyvTXIFBXQKKI4644-48-35 23:01:00 Test Item Value Reference Range Interpretation Comments Basophils (test code = 0.4 See_Comment [Aut omated message] The Basophils) system which ge nerated this result tra nsmitted reference range : <=1.0. The reference r william was not used to int erpret this result as normal/abnormal . [facility] CenterKiyouqyOQTXJJXXCQ2415-94-44 23:01:00 Test Item Value Reference Range Interpretation Comments Eosinophils (test code = 0.1 See_Comment [A utomated message] The Eosinophils) system which ge nerated this result tra nsmitted reference range : <=4.0. The reference r william was not used to int erpret this result as normal/abnormal . [facility] CenterEfllksbNSNPKWCSUW6538-19-19 23:01:00 Test Item Value Reference Range Interpretation Comments Lymphocytes (test code = Lymphocytes) 11.6 20.0-40.0 [facility] CenterXfqjoazIUWMKZNIAO1626-18-66 23:01:00 Test Item Value Reference Range Interpretation Comments Monocytes (test code = Monocytes) 16.3 2.0-12.0 [facility] [id number] 23:01:00 Test Item Value Reference Range Interpretation Comments BNP (test code = BNP) 46 [facility] [id number] 23:01:00 Test Item Value Reference Range Interpretation Comments eGFR (test code = eGFR) 86 [facility]2019-05-28 23:01:00 Test Item Value Reference Range Interpretation Comments BUN (test code = BUN) 14 7-22 [facility]2019-05-28 23:01:00 Test Item Value Reference Range Interpretation Comments Creatinine Lvl (test code = Creatinine 0.87 0.50-1.40 Lvl) [facility]2019-05-28 23:01:00 Test Item Value Reference Range Interpretation Comments Sodium Lvl (test code = Sodium Lvl) 133 135-145 [facility]2019-05-28 23:01:00 Test Item Value Reference Range Interpretation Comments Potassium Lvl (test code = Potassium 4.0 3.5-5.1 Lvl) [facility]2019-05-28 23:01:00 Test Item Value Reference Range Interpretation Comments CO2 (test code = CO2) 25 24-32 [facility]2019-05-28 23:01:00 Test Item Value Reference Range Interpretation Comments Calcium Lvl (test code = Calcium Lvl) 8.3 8.5-10.5 [facility]2019-05-28 23:01:00 Test Item Value Reference Range Interpretation Comments Chloride Lvl (test code = Chloride Lvl) 97 95-109 [facility]2019-05-28 23:01:00 Test Item Value Reference Range Interpretation Comments ALT (test code = ALT) 20 See_Comment [Auto mated message] The system which ge nerated this result transmit neto reference range : <=65. The reference range was not used to interpr et this result as karina l/abnormal. [facility]2019-05-28 23:01:00 Test Item Value Reference Range Interpretation Comments Total Protein (test code = Total 7.2 6.4-8.4 Protein) [facility]2019-05-28 23:01:00 Test Item Value Reference Range Interpretation Comments Albumin Lvl (test code = Albumin Lvl) 2.4 3.5-5.0 [facility]2019-05-28 23:01:00 Test Item Value Reference Range Interpretation Comments AST (test code = AST) 19 See_Comment [Auto mated message] The system which ge nerated this result transmit neto reference range : <=37. The reference range was not used to interpr et this result as karina l/abnormal. [facility]2019-05-28 23:01:00 Test Item Value Reference Range Interpretation Comments Bili Total (test code = Bili Total) 0.8 0.2-1.3 [facility]2019-05-28 23:01:00 Test Item Value Reference Range Interpretation Comments Alk Phos (test code = Alk Phos) 51 39-136 [facility]2019-05-28 23:01:00 Test Item Value Reference Range Interpretation Comments Glucose Lvl (test code = Glucose Lvl) 99 70-99 [facility]2019-05-28 23:01:00 Test Item Value Reference Range Interpretation Comments A/G Ratio (test code = A/G Ratio) 0.5 1 0.7-1.6 [facility]2019-05-28 23:01:00 Test Item Value Reference Range Interpretation Comments Globulin (test code = Globulin) 4.8 2.7-4.2 [facility]2019-05-28 23:01:00 Test Item Value Reference Range Interpretation Comments B/C Ratio (test code = B/C Ratio) 16 1 6-25 [facility]2019-05-28 23:01:00 Test Item Value Reference Range Interpretation Comments AGAP (test code = AGAP) 15.0 10.0-20.0 [facility]2019-05-28 23:01:00 Test Item Value Reference Range Interpretation Comments Lactic Acid Lvl (test code = Lactic 1.0 0.5-2.2 Acid Lvl) [id number] 23:01:00 Test Item Value Reference Range Interpretation Comments Hgb (test code = Hgb) 11.3 14.0-18.0 [facility] [id number] 23:01:00 Test Item Value Reference Range Interpretation Comments WBC (test code = WBC) 4.4 3.7-10.4 [place] [id number] 23:01:00 Test Item Value Reference Range Interpretation Comments MCV (test code = MCV) 107.0 80.0-94.0 [facility] [id number] 23:01:00 Test Item Value Reference Range Interpretation Comments Hct (test code = Hct) 33.1 42.0-54.0 [facility] [id number] 23:01:00 Test Item Value Reference Range Interpretation Comments RBC (test code = RBC) 3.10 4.70-6.10 [facility] [id number] 23:01:00 Test Item Value Reference Range Interpretation Comments Platelet (test code = Platelet) 356 133-450 [facility] [id number] 23:01:00 Test Item Value Reference Range Interpretation Comments MCHC (test code = MCHC) 34.1 32.0-36.0 [facility] [id number] 23:01:00 Test Item Value Reference Range Interpretation Comments MCH (test code = MCH) 36.5 pg 27.0-31.0 [facility] [id number] 23:01:00 Test Item Value Reference Range Interpretation Comments RDW (test code = RDW) 21.0 11.5-14.5 [facility] [id number] 23:01:00 Test Item Value Reference Range Interpretation Comments MPV (test code = MPV) 8.5 7.4-10.4 [facility] [id number] 23:01:00 Test Item Value Reference Range Interpretation Comments Monocytes # (test code 0.7 See_Comment [Aut omated message] The = Monocytes #) system which generated this result tra nsmitted reference range : <=0.8. The reference r william was not used to int erpret this result as normal/abnormal . [facility] [id number] 23:01:00 Test Item Value Reference Range Interpretation Comments Lymphocytes # (test code = Lymphocytes 0.5 1.0-5.5 #) [facility] [id number] 23:01:00 Test Item Value Reference Range Interpretation Comments Macrocyte (test code = 1+ *ABN*(02/10/19 Macrocyte) 6:01 PM) [facility] [id number] 23:01:00 Test Item Value Reference Range Interpretation Comments Segs (test code = Segs) 71.6 45.0-75.0 [facility] [id number] 23:01:00 Test Item Value Reference Range Interpretation Comments Neutrophils # (test code = Neutrophils 3.1 1.5-8.1 #) [facility] [id number] 23:01:00 Test Item Value Reference Range Interpretation Comments Basophils (test code = 0.4 See_Comment [Aut omated message] The Basophils) system which ge nerated this result tra nsmitted reference range : <=1.0. The reference r william was not used to int erpret this result as normal/abnormal . [facility] [id number] 23:01:00 Test Item Value Reference Range Interpretation Comments Eosinophils (test code = 0.1 See_Comment [A utomated message] The Eosinophils) system which ge nerated this result tra nsmitted reference range : <=4.0. The reference r william was not used to int erpret this result as normal/abnormal . [facility] [id number] 23:01:00 Test Item Value Reference Range Interpretation Comments Lymphocytes (test code = Lymphocytes) 11.6 20.0-40.0 [facility] [id number] 23:01:00 Test Item Value Reference Range Interpretation Comments Monocytes (test code = Monocytes) 16.3 2.0-12.0 [facility]
[2022-09-28] MEDS ORDERED: NA CHLORIDE 0.9% 1,000 ML ONE ×2 (11:36→15:31)
[2022-09-28 11:56] LABS: Absolute Lymphocytes (CBC) 0.7 K/uL (0.7-4.9); Hematocrit 28.1 % (39.6-49.0); Lymphocytes % 13.9 % (15.3-44.8); MCV 108.3 fL (80-100); MPV 9.4 fL (7.6-11.3); RBC Red Blood Cell Count 2.59 M/uL (4.33-5.43)
[2022-09-28 12:00] LABS: Protime INR 1.33
[2022-09-28] MEDS ORDERED: NA CHLORIDE 0.9% 50 ML IV ONE (12:08)
[2022-09-28] MEDS ORDERED: CEFTRIAXONE 1000 MG/VIAL ONE ×2 (12:08→22:04)
[2022-09-28 12:18] LABS: Bilirubin Direct 0.2 mg/dL (0-0.2); Bilirubin Total 0.5 mg/dL (0.2-1.0); Magnesium 2.3 mg/dL (1.6-2.4); Potassium 3.7 mmol/L (3.5-5.1); Protein, Total 7.5 g/dL (6.4-8.2)
--- NOTE | 2022-09-28 12:22 | RAD REPORT ---
EXAM DESCRIPTION: RAD - Chest Single View - 09/28/2022 12:15 pm CLINICAL HISTORY: COUGH Chest pain. COMPARISON: Chest Single View dated 12/15/2021; Chest Pa And Lat (2 Views) dated 07/10/2021; Chest Sin gle View dated 02/08/2019; Chest Single View dated 11/26/2018 FINDINGS: Portable technique limits examination quality. The lungs are grossly clear. The heart is normal in size. No displaced fractures. IMPRESSION: No acute intrathoracic process suspected.
[2022-09-28 12:25] LABS: Urine Blood Negative (Negative); Urine Glucose Negative (Negative); Urine Protein 2+ (Negative); Urine Specific Gravity >=1.030 (1.005-1.030); Urine pH 5.5 (5.0-7.0)
[2022-09-28 12:42] LABS: Calcium Oxalate Crystals- Ur Moderate /HPF (None Seen); Urine Bacteria None Seen /HPF (<20); Urine Mucus 4+ /HPF (None Seen)
--- NOTE | 2022-09-28 12:58 | ER ---
Nurse's Notes [facility] Name: Michael Grant Age: 77 yrs Sex: Male : 1945 Arrival Date: 09/28/2022 Time: 11:14 Bed 19 Private MD: Diagnosis: Dehydration;Altered mental status, unspecified;Weakness;Coronavirus infection, unspecified;SARS-associated coronavirus as the cause of diseases classified elsewhere Presentation: 09/28 11:29 Chief complaint: Spouse and/or significant other states: pt has been weak and not iw feeling well over past week, has gotten worse, was seen at Dr. Do's office on and he was given a muscle relaxer . pt c/o low back pain, reports he has low appetite but is drinking fluids, pt denies n/v/d reports dark urine. Coronavirus screen: Client presents with at least one sign or symptom that may indicate coronavirus-19. Ebola Screen: Patient negative for fever greater than or equal to 101.5 degrees Fahrenheit, and additional compatible Ebola Virus Disease symptoms Patient denies exposure to infectious person. Patient denies travel to an Ebola-affected area in the 21 days before illness onset. No symptoms or risks identified at this time. Initial Sepsis Screen: Does the patient meet any 2 criteria? No. Patient's initial sepsis screen is negative. Does the patient have a suspected source of infection? No. Patient's initial sepsis screen is negative. Risk Assessment: Do you want to hurt yourself or someone else? Patient reports no desire to harm self or others. Onset of symptoms was September 21, 2022. 11:29 Method Of Arrival: Wheelchair iw 11:29 Acuity: LEIF 3 iw Historical: - Allergies: 11:36 No Known Allergies; iw - Home Meds: 11:31 famotidine 40 mg Oral tab 1 tab once daily [Active]; hydroxychloroquine 200 mg oral tab iw 1 tab 2 times per day [Active]; pantoprazole 30 mg oral once daily [Active]; montelukast 10 mg oral tab 1 tab once daily [Active]; atorvastatin 40 mg oral tab 1 tab once daily [Active]; sucralfate 1 gram Oral tab 1 tab 2 times per day [Active]; Orencia (with maltose) 250 mg intravenous solr every 4 wks [Active]; A-Reds twice a day [Active]; docusate sodium 50 mg Oral cap 1 cap 2 times per day [Active]; osmotic laxative [Active]; simethicone 125 mg oral tab twice a day [Active]; - PMHx: 11:31 Anemia; Diabetes - NIDDM; GERD; Headaches; High Cholesterol; Myocardial infarction; iw Rheumatoid Arthritis; - PSHx: 11:31 cardiac stents X 5; iw - Immunization history:: Client reports receiving the 2nd dose of the Covid vaccine. - Social history:: Smoking status: Patient denies any tobacco usage or history of. - Family history:: not pertinent. Screenin:05 [facility] Fall Risk Assessment (Adult) History of falling in the last 3 months, kb3 including since admission No falls in past 3 months (0 pts) Confusion or Disorientation No (0 pts) Intoxicated or Sedated No (0 pts) Impaired Gait Yes (1 pt) Mobility Assist Device Used No (0 pt) Altered Elimination No (0 pt) Score/Fall Risk Level 0 - 2 = Low Risk Oriented to surroundings, Maintained a safe environment, Educated pt \T\ family on fall prevention, incl call for assistance when getting out of bed, Assessed \T\ reinforced patient's understanding of fall precautions, Provided non-skid footwear, Hourly rounding (assess needs \T\ fall precautionary measures) done, Used ambulatory aids as needed (educated on \T\ assisted with), Used gait belt as appropriate. Abuse screen: Denies threats or abuse. Denies injuries from another. Nutritional screening: No deficits noted. Tuberculosis screening: No symptoms or risk factors identified. Assessment: 12:05 General: Appears in no apparent distress. Behavior is calm, cooperative, Received care kb3 of pt from Renea MCKEON. Pt reports generalized malaise, fatigue and bilateral lower back pain for several days. Was evaluated by PCP and given prescription for muscle relaxers but continues to feel unwell. 12:05 Pain: Complains of pain in left low back and right low back Pain does not radiate. Pain kb3 currently is 5 out of 10 on a pain scale. Quality of pain is described as aching. 12:05 Neuro: No deficits noted. Reports weakness Fatigue. Respiratory: Breath sounds are kb3 clear bilaterally. Denies cough, shortness of breath labored breathing. GI: Abdomen is flat, Bowel sounds present X 4 quads. Abd is soft and non tender Patient currently denies abdominal pain, nausea, vomiting. : Reports pain in bilateral flank(s). 13:45 General: Pt's reports that he tested positive for covid on 09/18/2022 and kb3 quarantined for 5 days. Reports he also took paxlovid x5 days. 15:00 Reassessment: No changes from previously documented assessment. Patient and/or family kb3 updated on plan of care and expected duration. Pain level reassessed. Patient denies pain at this time. 17:00 Reassessment: Patient appears in no apparent distress at this time. No changes from kb3 previously documented assessment. 18:30 General: Updated pt regarding pending admission. No questions at this time. kb3 Vital Signs: 11:29 BP 109 / 65; Pulse 61; Resp 16; Temp 98.4(TE); Pulse Ox 98% on R/A; Weight 79.38 kg; iw Height 5 ft. 9 in. (175.26 cm); 12:00 BP 112 / 64; Pulse 57; Resp 18; Pulse Ox 99% ; kb3 12:30 BP 108 / 61; Pulse 56; Resp 18; Pulse Ox 100% ; kb3 13:00 BP 109 / 61; Pulse 56; Resp 20; Pulse Ox 100% ; kb3 17:00 BP 140 / 64; Pulse 62; Resp 18; Pulse Ox 100% ; kb3 18:00 BP 117 / 66; Pulse 54; Resp 18; Pulse Ox 99% ; kb3 20:09 BP 113 / 57; Pulse 62; Resp 19; Pulse Ox 98% on R/A; kd3 11:29 Body Mass Index 25.84 (79.38 kg, 175.26 cm) iw NIH Stroke Scale Scores: 12:59 NIHSS Score: 0 [facility] ED Course: 11:14 Patient arrived in ED. rg4 11:18 Merrill Fine MD is Attending Physician. [facility] 11:31 Triage completed. iw 11:35 Initial lab(s) drawn, by fl, sent to lab. First set of blood cultures drawn by me, bc6 COVID swab sent to lab. Inserted saline lock: 20 gauge in right forearm, using aseptic technique. 11:36 Arm band placed on. iw 11:40 Renea Reynolds, RN is Primary Nurse. iw 11:44 COVID-19/FLU A+B Sent. bc6 11:44 Lactate w/ 2H reflex if indic. Sent. bc6 11:44 Lipase Sent. bc6 11:44 Blood Culture Adult (2) Sent. bc6 11:44 Basic Metabolic Panel Sent. bc6 11:44 CBC with Diff Sent. bc6 11:44 LFT's Sent. bc6 11:44 Magnesium Sent. bc6 11:44 NT PRO-BNP Sent. bc6 11:44 PT-INR Sent. bc6 11:44 Troponin HS Sent. bc6 12:05 Patient has correct armband on for positive identification. Bed in low position. Call kb3 light in reach. Side rails up X2. Adult w/ patient. Warm blanket given. 12:05 No provider procedures requiring assistance completed. kb3 12:17 XRAY Chest (1 view) In Process Unspecified. EDMS 12:27 Urine Microscopic Only Sent. kb3 12:27 Blood Culture Adult (2) Sent. kb3 12:57 Cosme Arambula is Hospitalizing Provider. [facility] 13:03 CT Stone Protocol In Process Unspecified. EDMS 20:08 Patient admitted, IV remains in place. kd3 Administered Medications: 11:41 Drug: NS 0.9% 1000 ml Route: IV; Rate: 1 bolus; Site: right forearm; iw 13:00 Follow up: Response: No adverse reaction; IV Status: Completed infusion; IV Intake: kb3 1000ml 12:15 Drug: Rocephin (cefTRIAXone) 1 grams Route: IV; Rate: per protocol; Site: right forearm;kb3 13:00 Follow up: Response: No adverse reaction; IV Status: Completed infusion; IV Intake: [id number] Medication: 12:05 VIS not applicable for this client. kb3 Intake: 13:00 IV: 50ml; Total: 50ml. kb3 13:00 IV: 1000ml; Total: 1050ml. kb3 15:46 PO: 100ml; Total: 1150ml. kb3 Output: 15:46 Urine: 300ml (Voided); Total: 300ml. kb3 Outcome: 12:58 Decision to Hospitalize by Provider. christopher 20:08 Admitted to Med/surg kd3 20:08 Condition: stable 20:08 Discharge instructions given to patient, family, Instructed on discharge instructions, follow up and referral plans. Demonstrated understanding of instructions, follow-up care. 20:32 Patient left the ED. kd3 NIH Stroke Scale - NIH Stroke Score Date: 09/28/2022 Time: 12:59 Total Score = 0 1a. Level of Consciousness (LOC) - 0(Alert) 1b. Level of Consciousness (LOC) (Month \T\ Age) - 0(Both) 1c. LOC Commands (Open \T\ Closes Eyes/Time Study Statistician) - 0(Both) 2. Best Gaze (Lateral Gaze Paresis) - 0(Normal) 3. Visual Field Loss - 0(No visual loss) 4. Facial Palsy - 0(Normal) 5a. Left Arm: Motor (10-second hold) - 0(No drift) 5b. Right Arm: Motor (10-second hold) - 0(No drift) 6a. Left Leg: Motor (5-second hold - always test supine) - 0(No drift) 6b. Right Leg: Motor (5-second hold - always test supine) - 0(No drift) 7. Limb Ataxia (finger/nose \T\ heel/tellez - test with eyes open) - 0(Absent) 8. Sensory Loss (pinprick arms/legs/face) - 0(Normal) 9. Best Language: Aphasia (description/naming/reading) - 0(No aphasia) 10. Dysarthria (speech clarity - read or repeat words) - 0(Normal) 11. Extinction and Inattention (visual/tactile/auditory/spatial/personal) - 0(No abnormality) Initials: christopher Signatures: Dispatcher [employer] EDMerrill Nix MD MD cha Williams, Irene RN Bridgette Alba4 Lesiva Campbell RN RN kd3 Liss Noble, RN RN kb3 Gill Simon bc6 Corrections: (The following items were deleted from the chart) 11:41 11:29 BP 109 / 65; Pulse 61bpm; Resp 16bpm; Pulse Ox 98% RA; iw iw 12:32 11:29 BP 109 / 65; Pulse 61bpm; Resp 16bpm; Pulse Ox 98% RA; 79.38 kg; Height 5 iw ft. 9 in.; BMI: 25.8; iw
--- NOTE | 2022-09-28 12:58 | EDPHYS ---
Physician Documentation [facility] Name: Michael Grant Age: 77 yrs Sex: Male : 1945 Arrival Date: 09/28/2022 Time: 11:14 Bed 19 Private MD: ED Physician Merrill Fine HPI: 09/28 12:45 This 77 yrs old Male presents to ER via Wheelchair with complaints of christopher Weakness. 12:45 The patient presents to the emergency department with weakness of the entire body, christopher generalized weakness. Onset: The symptoms/episode began/occurred 2 day(s) ago. Context: occurred at home. Associated signs and symptoms: Pertinent positives: dizziness, weakness. Severity of symptoms: At their worst the symptoms were mild moderate in the emergency department the symptoms are unchanged. Patient's baseline: Neuro: alert and fully oriented. Current symptoms: Currently, the patient is not experiencing any symptoms, the patient feels back to baseline. The patient has experienced similar episodes in the past, a few times. Historical: - Allergies: 11:36 No Known Allergies; iw - Home Meds: 11:31 famotidine 40 mg Oral tab 1 tab once daily [Active]; hydroxychloroquine 200 mg oral tab iw 1 tab 2 times per day [Active]; pantoprazole 30 mg oral once daily [Active]; montelukast 10 mg oral tab 1 tab once daily [Active]; atorvastatin 40 mg oral tab 1 tab once daily [Active]; sucralfate 1 gram Oral tab 1 tab 2 times per day [Active]; Orencia (with maltose) 250 mg intravenous solr every 4 wks [Active]; A-Reds twice a day [Active]; docusate sodium 50 mg Oral cap 1 cap 2 times per day [Active]; osmotic laxative [Active]; simethicone 125 mg oral tab twice a day [Active]; - PMHx: 11:31 Anemia; Diabetes - NIDDM; GERD; Headaches; High Cholesterol; Myocardial infarction; iw Rheumatoid Arthritis; - PSHx: 11:31 cardiac stents X 5; iw - Immunization history:: Client reports receiving the 2nd dose of the Covid vaccine. - Social history:: Smoking status: Patient denies any tobacco usage or history of. - Family history:: not pertinent. ROS: 12:45 Constitutional: Negative for fever, chills, and weight loss, Eyes: Negative for injury, christopher pain, redness, and discharge, ENT: Negative for injury, pain, and discharge, Neck: Negative for injury, pain, and swelling, Cardiovascular: Negative for chest pain, palpitations, and edema, Respiratory: Negative for shortness of breath, cough, wheezing, and pleuritic chest pain, Abdomen/GI: Negative for abdominal pain, nausea, vomiting, diarrhea, and constipation, Back: Negative for injury and pain, : Negative for injury, bleeding, discharge, and swelling, MS/Extremity: Negative for injury and deformity, Skin: Negative for injury, rash, and discoloration, Psych: Negative for depression, anxiety, suicide ideation, homicidal ideation, and hallucinations, Allergy/Immunology: Negative for hives, rash, and allergies, Endocrine: Negative for neck swelling, polydipsia, polyuria, polyphagia, and marked weight changes, Hematologic/Lymphatic: Negative for swollen nodes, abnormal bleeding, and unusual bruising. 12:45 Neuro: Positive for weakness. Exam: 12:45 Constitutional: This is a well developed, well nourished patient who is awake, alert, christopher and in no acute distress. Head/Face: Normocephalic, atraumatic. Eyes: Pupils equal round and reactive to light, extra-ocular motions intact. Lids and lashes normal. Conjunctiva and sclera are non-icteric and not injected. Cornea within normal limits. Periorbital areas with no swelling, redness, or edema. Neck: Trachea midline, no thyromegaly or masses palpated, and no cervical lymphadenopathy. Supple, full range of motion without nuchal rigidity, or vertebral point tenderness. No Meningismus. Chest/axilla: Normal chest wall appearance and motion. Nontender with no deformity. No lesions are appreciated. Cardiovascular: Regular rate and rhythm with a normal S1 and S2. No gallops, murmurs, or rubs. Normal PMI, no JVD. No pulse deficits. Respiratory: Lungs have equal breath sounds bilaterally, clear to auscultation and percussion. No rales, rhonchi or wheezes noted. No increased work of breathing, no retractions or nasal flaring. Abdomen/GI: Soft, non-tender, with normal bowel sounds. No distension or tympany. No guarding or rebound. No evidence of tenderness throughout. Back: No spinal tenderness. No costovertebral tenderness. Full range of motion. Male : Normal genitalia with no discharge or lesions. Skin: Warm, dry with normal turgor. Normal color with no rashes, no lesions, and no evidence of cellulitis. MS/ Extremity: Pulses equal, no cyanosis. Neurovascular intact. Full, normal range of motion. Neuro: Awake and alert, GCS 15, oriented to person, place, time, and situation. Cranial nerves II-XII grossly intact. Motor strength 5/5 in all extremities. Sensory grossly intact. Cerebellar exam normal. Normal gait. Psych: Awake, alert, with orientation to person, place and time. Behavior, mood, and affect are within normal limits. 12:45 ECG was reviewed by the Attending Physician. Vital Signs: 11:29 BP 109 / 65; Pulse 61; Resp 16; Temp 98.4(TE); Pulse Ox 98% on R/A; Weight 79.38 kg; iw Height 5 ft. 9 in. (175.26 cm); 12:00 BP 112 / 64; Pulse 57; Resp 18; Pulse Ox 99% ; kb3 12:30 BP 108 / 61; Pulse 56; Resp 18; Pulse Ox 100% ; kb3 13:00 BP 109 / 61; Pulse 56; Resp 20; Pulse Ox 100% ; kb3 17:00 BP 140 / 64; Pulse 62; Resp 18; Pulse Ox 100% ; kb3 18:00 BP 117 / 66; Pulse 54; Resp 18; Pulse Ox 99% ; kb3 20:09 BP 113 / 57; Pulse 62; Resp 19; Pulse Ox 98% on R/A; kd3 11:29 Body Mass Index 25.84 (79.38 kg, 175.26 cm) NIH Stroke Scale Scores: 12:59 NIHSS Score: 0 christopher MDM: 11:19 Patient medically screened. christopher 12:55 Data reviewed: vital signs, nurses notes, lab test result(s), EKG, radiologic studies, [facility] CT scan, plain films. Consideration of Admission/Observation Patient was admitted/placed on observation. Escalation of care including admission/observation considered. Management of patient was discussed with the following: Hospitalist: dr arambula. Test considered but Not performed: MRI: brain. Historians other than the Patient: Family Member: . Care significantly affected by the following chronic conditions: Diabetes, Hypertension. 09/28 11:20 Order name: Basic Metabolic Panel; Complete Time: 12:27 09/28 11:20 Order name: CBC with Diff; Complete Time: 19:59 [facility] 09/28 11:20 Order name: LFT's; Complete Time: 12:27 09/28 11:20 Order name: Magnesium; Complete Time: 12:27 09/28 11:20 Order name: NT PRO-BNP; Complete Time: 12:27 09/28 11:20 Order name: PT-INR; Complete Time: 12:27 09/28 11:20 Order name: Troponin HS; Complete Time: 12:27 [facility] 09/28 11:20 Order name: Lipase; Complete Time: 12:27 [facility] 09/28 11:20 Order name: Blood Culture Adult (2) 09/28 11:20 Order name: Lactate w/ 2H reflex if indic.; Complete Time: 12:27 [facility] 09/28 11:20 Order name: COVID-19/FLU A+B; Complete Time: 19:59 [facility] 09/28 11:20 Order name: Urine Microscopic Only; Complete Time: 19:59 [facility] 09/28 12:26 Order name: Urine Dipstick-Ancillary; Complete Time: 12:27 [facility] 09/28 12:57 Order name: CBC Smear Scan; Complete Time: 19:59 [facility] 09/28 11:20 Order name: XRAY Chest (1 view); Complete Time: 12:27 09/28 11:20 Order name: EKG; Complete Time: 11:21 09/28 11:20 Order name: Cardiac monitoring; Complete Time: 11:37 09/28 11:20 Order name: EKG - Nurse/Tech; Complete Time: 13:16 09/28 11:20 Order name: IV Saline Lock; Complete Time: 11:44 09/28 11:20 Order name: Labs collected and sent; Complete Time: 11:44 09/28 11:20 Order name: O2 Per Protocol; Complete Time: 11:37 09/28 11:20 Order name: O2 Sat Monitoring; Complete Time: 11:37 09/28 11:20 Order name: Urine Dipstick-Ancillary (obtain specimen); Complete Time: 12:27 [facility] 09/28 12:32 Order name: PO challenge; Complete Time: 13:15 christopher 09/28 12:46 Order name: CT Stone Protocol; Complete Time: 19:59 jl7 09/28 14:16 Order name: CT; Complete Time: 19:59 EDMS EC:45 Rate is 57 beats/min. Rhythm is regular. QRS [place] is Normal. [place] interval is normal. QRS christopher interval is normal. QT interval is normal. No Q waves. T waves are Normal. No ST changes noted. Clinical impression: Sinus bradycardia. Interpreted by me. Reviewed by me. Administered Medications: 11:41 Drug: NS 0.9% 1000 ml Route: IV; Rate: 1 bolus; Site: right forearm; iw 13:00 Follow up: Response: No adverse reaction; IV Status: Completed infusion; IV Intake: kb3 1000ml 12:15 Drug: Rocephin (cefTRIAXone) 1 grams Route: IV; Rate: per protocol; Site: right forearm;kb3 13:00 Follow up: Response: No adverse reaction; IV Status: Completed infusion; IV Intake: [id number] Disposition Summary: 09/28/22 12:58 Hospitalization Ordered Hospitalization Status: Inpatient Admission christopher Provider: Cosme Arambula cha Location: Telemetry/MedSurg (Inpatient) christopher Condition: Stable christopher Problem: new christopher Symptoms: have improved christopher Bed/Room Type: Standard [facility] Room Assignment: 417(09/28/22 20:00) Diagnosis - Dehydration christopher - Altered mental status, unspecified christopher - Weakness christopher - Coronavirus infection, unspecified christopher - SARS-associated coronavirus as the cause of diseases classified elsewhere christopher Forms: - Medication Reconciliation Form christopher - SBAR form christopher NIH Stroke Scale - NIH Stroke Score Date: 09/28/2022 Time: 12:59 Total Score = 0 1a. Level of Consciousness (LOC) - 0(Alert) 1b. Level of Consciousness (LOC) (Month \T\ Age) - 0(Both) 1c. LOC Commands (Open \T\ Closes Eyes/Baker Helper) - 0(Both) 2. Best Gaze (Lateral Gaze Paresis) - 0(Normal) 3. Visual Field Loss - 0(No visual loss) 4. Facial Palsy - 0(Normal) 5a. Left Arm: Motor (10-second hold) - 0(No drift) 5b. Right Arm: Motor (10-second hold) - 0(No drift) 6a. Left Leg: Motor (5-second hold - always test supine) - 0(No drift) 6b. Right Leg: Motor (5-second hold - always test supine) - 0(No drift) 7. Limb Ataxia (finger/nose \T\ heel/tellez - test with eyes open) - 0(Absent) 8. Sensory Loss (pinprick arms/legs/face) - 0(Normal) 9. Best Language: Aphasia (description/naming/reading) - 0(No aphasia) 10. Dysarthria (speech clarity - read or repeat words) - 0(Normal) 11. Extinction and Inattention (visual/tactile/auditory/spatial/personal) - 0(No abnormality) Initials: [facility] Signatures: Dispatcher [employer] EDRosalba Tabor RN RN Merrill Graham MD MD cha Williams, Irene, RN RN iw Botello, Elizabeth eb Bradberry, Kelly, RN RN kb3 Nivia Fong, PASanjeev PASanjeev sb4 Corrections: (The following items were deleted from the chart) 16:56 12:58 [facility] kaley 20:00 16:56 Laura jurado
[2022-09-28 13:01] LABS: Platelet Estimate ADEQ; White Blood Cell Scan OK (OK)
[2022-09-28 13:02] LABS: Anisocytosis 1+; Blood Morphology Comment NOTED (NOT SEEN); Macrocytosis 1+
--- NOTE | 2022-09-28 13:13 | RAD REPORT ---
EXAM DESCRIPTION: CT - Stone Protocol - 09/28/2022 1:02 pm CLINICAL HISTORY: Abdominal pain. Flank pain COMPARISON: December 2021 TECHNIQUE: Computed axial tomography of the abdomen pelvis was obtained without oral or IV contrast. Lack of IV and oral contrast limits evaluation of solid organs, appendix, bowel, and vessels. Barrientos l reformatted images were obtained and reviewed. All CT scans are performed using dose optimization technique as appropriate and may include automated exposure control or mA/KV adjustment according to patient size. FINDINGS: A renal calculus is not seen. An ureteral calculus is not noted. A bladder calculus is not present. The liver, spleen, pancreas and adrenals appear grossly normal There is no evidence of diverticulitis. The appendix appears normal Borderline gallbladder distention. Small right inguinal hernia IMPRESSION: Negative for a genitourinary calculus Borderline gallbladder distention
[2022-09-28 13:26] LABS: SARS-COV-2 RT PCR POSITIVE (NEGATIVE)
[2022-09-28] MEDS ORDERED: ONDANSETRON 4 MG/2 ML VIAL IV PRN (13:45)
--- NOTE | 2022-09-28 14:15 | RAD REPORT ---
EXAM DESCRIPTION: CT - Head C Spine Mpr Wo Con - 09/28/2022 2:04 pm CLINICAL HISTORY: Head and neck pain. Weakness. Alteration of consciousness COMPARISON: None. TECHNIQUE: Computed axial tomography of the head and cervical spine was obtained. Sagittal and coronal reconstruction was performed. All CT scans are performed using dose optimization technique as appropriate and may include automated exposure control or mA/KV adjustment according to patient size. FINDINGS: An intracranial bleed is not seen. The ventricles are normal in caliber. An extra-axial fl uid collection is not noted. Fluid within the sinuses may indicate acute sinusitis No significant hypodensity within the brain A cervical fracture is not visualized. No dislocation is noted. Osteophytes and facet hypertrophy C3-4 result in marked narrowing of the left neural foramina. IMPRESSION: No acute intracranial abnormality is seen. A cervical fracture is not visualized. 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
--- NOTE | 2022-09-28 14:46 | P.HP ---
Certification for Inpatient Patient admitted to: Inpatient With expected LOS: >2 Midnights Patient will require the following post-hospital care: None Practitioner: I am a practitioner with admitting privileges, knowledge of patient current condition, hospital course, and medical plan of care. Services: Services provided to patient in accordance with Admission requirements found in Title 42 Section 412.3 of the Code of Federal Regulations Patient History Date of Service: 09/28/22 Primary Care Provider: Ernestina Reason for admission: AMS/Dehydration/UTI History of Present Illness: This is a 79-year-old female with past medical history significant for anemia, GERD, hyperlipidemia, WI with 5 stents, lupus, rheumatoid arthritis. Patient presents to the emergency department via wheelchair with complaints of weakness. The patient was evaluated in the ER with his at the bedside. Patient is alert and oriented x3 but very lethargic and slow to answer questions. Review of system and history mostly obtained from . Per patient's symptoms started last . She reports associated symptoms of weakness, back pain, poor balance, nausea, dizziness and poor appetite. She stated her took some ibuprofen, acetaminophen with codeine, and baclofen. She reports a change in mental status after her took these medications. She said as the week went on, his mental status worsened. Today, she said that her kept saying "I'm hurt all over, the medications are not working and my mind is fog gy". On physical exam, patient has generalized stiffness more prominent in his lower extremities. Per , stiffness started 2 months ago. He usually uses his cane, but ever since then, he has been having a hard time walking and getting around. 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 Patient will be admitted under the care of Dr. Arambula. Infectious disease will be consulted for further recommendation. Allergies No Known Allergies Allergy (Unverified 09/28/22 13:55) Home Medications: Aspirin [Aspirin EC 81 MG] 81 mg PO DAILY 02/15/14 Esomeprazole Mag Trihydrate [Nexium] 40 mg PO DAILY #30 capsule. 02/15/14 Ezetimibe/Simvastatin [Vytorin 10-40 mg Tablet] 1 tab PO BEDTIME 02/15/14 Montelukast [Singulair*] 10 mg PO DAILY 02/15/14 Sucralfate [Carafate*] 1 gm PO QID 02/15/14 Ticagrelor [Brilinta*] 90 mg PO BID 02/15/14 - Past Medical/Surgical History Diabetic: No -: shingles -: heart attack 8 yrs ago -: gerd -: HLD -: Lupus -: RA -: stent placement X2 but has a total of 3 stents - Family History Family History: Reviewed- Non-Contributory - Social History Smoking Status: Former smoker Alcohol use: No CD- Drugs: No Caffeine use: Yes Review of Systems 10-point ROS is otherwise unremarkable General: Weakness Gastrointestinal: Nausea Genitourinary: Dysuria Musculoskeletal: Back Pain, Leg Pain, As per HPI Integumentary: Bruising Neurological: Weakness, Incoordination Physical Examination - Vital Signs Temperature: 98.4 F Blood Pressure: 109/65 Pulse: 61 Respirations: 16 Pulse Ox (%): 98 - Physical Exam General: Alert, Oriented x3 HEENT: Atraumatic, Normocephalic, PERRLA Neck: Supple, 2+ carotid pulse no bruit Respiratory: Clear to auscultation bilaterally, Normal air movement Cardiovascular: No edema, Normal pulses Capillary refill: <2 Seconds Gastrointestinal: Normal bowel sounds (generalized stiffness more prominent in BLE) Musculoskeletal: No swelling, Other (generalized stiffness more prominent in BLE) Integumentary: Other (generalized bruises) Neurological: Sensation intact Lymphatics: No axilla or inguinal lymphadenopathy - Studies Laboratory Data (last 24 hrs) 09/28/22 11:35: PT 14.6 H, INR 1.33 09/28/22 11:35: WBC 4.90, Hgb 9.8 L, Hct 28.1 L, Plt Count 242 09/28/22 11:35: Sodium 136, Potassium 3.7, BUN 19 H, Creatinine 0.74, Glucose 133 H, Magnesium 2.3, Total Bilirubin 0.5, AST 12 L, ALT 11 L, Alkaline Phosphatase 64, Lipase 70 L Assessment and Plan - Plan Assessment Altered mental status COVID-19 UTI Dehydration with acute kidney injury Hyperlipidemia Lupus Rheumatoid arthritis GERD Plan Altered mental status Continue neuro checks PT/OT consulted for weakness/stiffness, recommendation appreciated CT head pending COVID-19 Continue droplet isolation UTI Continue antibiotic Blood cultures pending Infectious disease consulted, recommendation appreciated Dehydration with acute kidney injury Continue IV fluid Hyperlipidemia Continue statin Lupus Continue home medications Rheumatoid arthritis Continue home medications GERD Continue home medication PPX- Lovenox/PPI Code Status: Full code Plan to discharge in: 48 Hours - Advance Directives Does patient have a Living Will: Yes Does patient have a Durable POA for Healthcare: Yes - Code Status/Comfort Care Code Status Assessed: Yes (Full code) Critical Care: No
[2022-09-28] MEDS: NA CHLORIDE 0.9% 1,000 ML IV SCH ×2 (15:15→22:15)
[2022-09-28 20:43] VITALS: BMI 25.4
[2022-09-28] MEDS ORDERED: ATORVASTATIN 40 MG TAB PO SCH (21:00)
[2022-09-28] MEDS ORDERED: HYDROXYCHLOROQUINE 200MG TAB PO SCH (21:00)
[2022-09-28] MEDS ORDERED: NA CHLORIDE 0.9% 50 ML ONE (22:05)
[2022-09-28] MEDS: ACETAMINOPHEN 500 MG TAB PO PRN (22:15)
[2022-09-28] MEDS: CEFTRIAXONE 1,000 MG in NA CHLORIDE 0.9% 50 ML IVPB SCH (22:15)
[2022-09-28] MEDS: GABAPENTIN 300 MG CAP PO SCH (22:15)
[2022-09-28] MEDS: MELATONIN 5 MG TABLET PO PRN ×2 (22:16→22:23)
[2022-09-29] MEDS: NA CHLORIDE 0.9% 1,000 ML IV SCH ×3 (03:20→17:23)
[2022-09-29 05:23] LABS: Absolute Lymphocytes (CBC) 0.7 K/uL (0.7-4.9); Hematocrit 26.1 % (39.6-49.0); Lymphocytes % 18.6 % (15.3-44.8); MCV 108.9 fL (80-100); MPV 9.6 fL (7.6-11.3); RBC Red Blood Cell Count 2.39 M/uL (4.33-5.43)
[2022-09-29 05:39] LABS: Magnesium 2.3 mg/dL (1.6-2.4); Potassium 3.5 mmol/L (3.5-5.1)
[2022-09-29] MEDS ORDERED: PANTOPRAZOLE 40MG TABLET PO SCH (06:30)
[2022-09-29] MEDS ORDERED: GABAPENTIN 300 MG CAP PO SCH (09:00)
[2022-09-29] MEDS ORDERED: POTASSIUM CL SA 10 MEQ TAB PO ONE (09:00)
[2022-09-29] MEDS ORDERED: predniSONE 5 MG TAB PO SCH (09:00)
[2022-09-29] MEDS: CEFTRIAXONE 1,000 MG in NA CHLORIDE 0.9% 50 ML IVPB SCH ×2 (09:30→22:20)
[2022-09-29] MEDS: GABAPENTIN 300 MG CAP PO SCH ×2 (09:31→22:22)
[2022-09-29] MEDS: PANTOPRAZOLE 40MG TABLET PO SCH (09:31)
[2022-09-29] MEDS: FAMOTIDINE 20 MG TAB PO SCH (09:31)
[2022-09-29] MEDS: HYDROXYCHLOROQUINE 200MG TAB PO SCH ×2 (09:31→22:21)
[2022-09-29] MEDS: ENOXAPARIN 40 MG/0.4 ML SQ SCH (09:32)
[2022-09-29] MEDS: ATORVASTATIN 40 MG TAB PO SCH (09:32)
[2022-09-29] MEDS: CARBIDOPA/LEVODOPA 25/100 TAB PO SCH ×2 (12:38→22:22)
--- NOTE | 2022-09-29 14:22 | P.PN ---
Subjective Date of Service: 09/29/22 Primary Care Provider: Ernestina Chief Complaint: AMS/Dehydration/UTI Patient is awake and alert. He is complaining of stiffness in the lower extremities. Spouse by his bedside stated patient stiffness is better compared to yesterday. Patient denies any difficulty in swallowing. Physical Examination - Vital Signs Temperature: 98.3 F Blood Pressure: 113/65 Pulse: 63 Respirations: 20 Pulse Ox (%): 97 Assessment And Plan - Plan Physical Exam General: Alert, Oriented x3 HEENT: Atraumatic, Normocephalic, PERRLA Neck: Supple, 2+ carotid pulse no bruit Respiratory: Clear to auscultation bilaterally, Normal air movement Cardiovascular: No edema, Normal pulses Capillary refill: <2 Seconds Gastrointestinal: Normal bowel sounds, no tenderness Musculoskeletal: No swelling. Integumentary: generalized bruises. Neurological: Sensation intact, both lower extremities are spastic Plan: Altered mental status/spasticity Neuro checks PT/OT consulted for weakness/stiffness. CT head : No acute disease Spouse report patient has been experiencing tremors in his hands. Parkinson's disease is possible versus rheumatoid/lupus flare Obtain MRI of the brain. Case discussed with neurology-Dr. Galarza who recommend a trial of Sinemet. Neurology consulted to evaluate COVID-19 Patient tested positive for COVID-19 on 09/17/22 No pneumonia. Continue droplet isolation UTI IV Rocephin. Blood cultures: No growth. Infectious disease consulted. Hyperlipidemia Continue statin Lupus Continue home medications-hydroxychloroquine and prednisone Rheumatoid arthritis Continue home medications-hydroxychloroquine and prednisone GERD Continue home medication Code Status: Full code
--- NOTE | 2022-09-29 20:14 | CON ---
Reason For Consultation: Consultation was called because of possible Parkinson's disease. History Of Present Illness: Mr. Grant is a -[id number] patient with history of chronic anemi a, gastroesophageal reflux disease, dyslipidemia, coronary artery disease, status post 5 stents, and lupus along with rheumatoid arthritis who was admitted to [facility] on 09/28/2022 with wors ening shortness of breath, diffuse weakness and was wheelchair bound when he came in mostly because o f the fatigue and was found to be COVID-19 positive. He did have a cough that was productive and his chest x-ray identified clear lungs. Heart normal size, and no acute intrathoracic process. He did have a head and cervical spine CT scan which showed C3-4 spondylosis resulting in marked left foramin al stenosis suggested that an MRI would do better at evaluating the patient's findings on CT scan. Regarding the possibility of Parkinson's disease, he said, for several months he has had more difficu lty getting around and has gotten slower. Had some left-sided tremors and perhaps some pain and weak ness in that region. 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 At [facility], it was noted imaging of the brain ruled out by CT scan showed no hemorrh agic stroke and suggested the findings as noted with CT scan. He is now on COVID isolation unit and does have slight cough, but still no fever. Past Medical History: As noted above. Allergies: NO KNOWN DRUG ALLERGIES. Current Medications: Tylenol 500 mg every 4 hours as needed. Lipitor 40 mg daily. He has just star neto on Sinemet 25/100 twice daily. Did receive a gram of Rocephin set for every 12 hours. Also, Col denice 100 mg daily. Lovenox 40 mg subcutaneously daily. Pepcid 40 mg daily. Gabapentin 300 mg twice daily. Plaquenil 200 mg twice daily. Melatonin 5 mg at bedtime. Singulair 10 mg daily. Zofran 4 m g IV every 6 hours as needed. Protonix 40 mg daily, and prednisone 10 mg daily along with Carafate 1 g daily. Did receive a liter of IV fluids as normal saline. Review of Systems: As noted, he has a productive cough, diffuse weakness, myalgias, mild confusion and diffuse tremors o n the left upper extremity. Examination is otherwise negative on a 10 point systems review. Physical Examination: Vital Signs: Blood pressure 113/65, pulse 63, respiratory rate 16 to 20, temperature 98.3, oxygen sa turation 98% on room air. Pain level of 0. General: Mr. Grant is lying in bed. Has a slight cough that is productive. HEENT: Otherwise, he is normocephalic, atraumatic. Sclerae anicteric. Oropharynx is moist and pink . Neck: Supple. Chest: Clear. Heart: Regular. Extremities: Show no significant edema or cyanosis. Neurological: Cranial nerves, he has no deficits there. Motor examination, no obvious weakness in u pper and lower extremities. Does have mild pain on the left radiating to the left upper extremity to his left neck. No obvious tremor noted at this point. No significant cogwheeling or ratcheting. P hysical Therapists, of note, to return to evaluate him today as the patient was not ready on yesterda y for evaluation. He will be assessed for his gait with gait belt at that time. Laboratory Studies: White blood cell count 3.9, hemoglobin 8.7, platelets 205. INR 1.33. Chemistri es unremarkable. Creatinine 0.61, glucose 94, lactic acid 1.2, calcium 7.9. Phosphorus 3.0, magnesi um 2.3, ALT 11, AST 12, alkaline phosphatase 64. His urinalysis shows moderate calcium oxalate cryst als, 4+ mucus, 11 to 20 red blood cells, 2+ protein, trace ketones, and his COVID-19 test is __. Influenza A and B tests negative. Did have an abdomen CT scan, which was negative for any genit ourinary calculus. Borderline gallbladder distention. Assessment: Mr. Grant is a 77-year-old patient admitted to the hospital with COVID positive and coug h. No obvious fever at this point. He did have some confusion, which is likely related to COVID enc ephalopathy. He has had tremors that predates the COVID infection and some stiffness, difficulty wit h ambulation, requiring a cane to ambulate. He is now started on Sinemet 25/100 twice daily, but has not seen a change in his tremor. He has not yet ambulated. Plan: 1.Patient may be ambulated by Physical Therapist to help determine if there is improvement in his ga it, and of course, his tremor if there is a response to the carbidopa/levodopa. 2.His comorbidities did include possibility of other systemic infection and he does have COVID-19, p erhaps he will benefit from Paxlovid. 3.His longer standing medical issues such as gastroesophageal reflux disease, anemia, and dyslipidem ia are addressed by primary team. He may require a brain MRI and cervical spine MRI to further evalu ate the possibility of a significant stenosis and impingement in the cervical region radiating to the left arm in addition to the cervical canal. Patient will be further evaluated next week once the MR I of C-spine is done if the patient is still in hospital. MONICA/IFEOMA Voice ID: [id number] Report ID: [id number]
--- NOTE | 2022-09-29 20:35 | CON ---
History Of Present Illness: This is a 77-year-old male, I was consulted for evaluation of COVID-19 i nfection and urosepsis, altered mental status. Patient has improved since yesterday. Has significan t past medical history of reflux disease, hyperlipidemia, anemia, myocardial infarction with 5 stents placement, lupus and rheumatoid arthritis. Patient came to the emergency room with complain of weak ness and lethargy. Patient denies any headache, nausea, vomiting, chest pain, abdominal pain, consti pation, or diarrhea. Continued to have some cough. Past Medical History: As per HPI. Social History: Former smoker. No alcohol. Family History: Noncontributory. Medications: Rocephin. Steroids. Plaquenil. See MARs for other medications. Allergies: NO KNOWN DRUG ALLERGIES. Review of Systems: A 10-point review was performed. Physical Examination: General: Patient is a 77-year-old male, lying in bed, not in any acute cardiopulmonary distress. Vital Signs: Temperature 98, pulse 63, respirations 20, blood pressure 113/65. HEENT: Unremarkable. Neck: Supple. Lungs: Basal crackles. Heart: S1, S2. Regular. Abdomen: Soft, nontender. Bowel sounds present. Extremities: No edema. Laboratory Data: WBC 3.9, hemoglobin 8.7, platelets are 205. Chemistry shows BUN of 13, creatinine 0.6, albumin level of 3. Urinalysis shows no wbc. Blood cultures are negative for 24 hours. Assessment And Plan: COVID-19 infection with no obvious sign of lung involvement, upper respiratory tract symptoms. We will continue to monitor patient closely as he has multiple medical problems incl uding lupus, rheumatoid arthritis, coronary artery disease, hyperlipidemia, and reflux. No signs of urinary tract infection. I agree with holding back Rocephin at this time and monitor patient for sig ns of infection with WBC and fever trends. Leukopenia. Anemia. Moderate protein-calorie malnourish ment. We will follow patient closely. No other recommendation at this time. Thank you, Dr. Arambula, for consult. NF/MODL Voice ID: [id number] Report ID: [id number]
[2022-09-29] MEDS: SIMETHICONE 125 MG PO SCH (21:00)
[2022-09-30 03:52] LABS: Absolute Lymphocytes (CBC) 1.1 K/uL (0.7-4.9); Hematocrit 28.6 % (39.6-49.0); Lymphocytes % 34.2 % (15.3-44.8); MCV 107.7 fL (80-100); MPV 9.5 fL (7.6-11.3); RBC Red Blood Cell Count 2.65 M/uL (4.33-5.43)
[2022-09-30 04:05] LABS: Potassium 3.6 mmol/L (3.5-5.1)
[2022-09-30] MEDS: NA CHLORIDE 0.9% 1,000 ML IV SCH ×2 (04:54→18:16)
[2022-09-30] MEDS ORDERED: POTASSIUM CL SA 10 MEQ TAB PO ONE (05:00)
[2022-09-30] MEDS: SIMETHICONE 125 MG PO SCH ×2 (09:00→21:00)
[2022-09-30] MEDS: ENOXAPARIN 40 MG/0.4 ML SQ SCH (09:00)
[2022-09-30] MEDS: ATORVASTATIN 40 MG TAB PO SCH (09:13)
[2022-09-30] MEDS: DOCUSATE NA 100 MG CAP PO SCH (09:13)
[2022-09-30] MEDS: SUCRALFATE 1 GM TABLET PO SCH (09:13)
[2022-09-30] MEDS: HYDROXYCHLOROQUINE 200MG TAB PO SCH ×2 (09:13→21:00)
[2022-09-30] MEDS: CARBIDOPA/LEVODOPA 25/100 TAB PO SCH ×2 (09:13→21:00)
[2022-09-30] MEDS: PANTOPRAZOLE 40MG TABLET PO SCH (09:13)
[2022-09-30] MEDS: GABAPENTIN 300 MG CAP PO SCH ×2 (09:13→21:01)
[2022-09-30] MEDS: MONTELUKAST 10 MG TAB PO SCH (09:13)
[2022-09-30] MEDS: predniSONE 5 MG TAB PO SCH (09:13)
[2022-09-30] MEDS: FAMOTIDINE 20 MG TAB PO SCH (09:13)
[2022-09-30] MEDS: CEFTRIAXONE 1,000 MG in NA CHLORIDE 0.9% 50 ML IVPB SCH (09:13)
[2022-09-30] MEDS: ACETAMINOPHEN 500 MG TAB PO PRN ×3 (10:07→22:22)
--- NOTE | 2022-09-30 14:25 | EKG ---
Test Date: 2022-09-28 Test Time: 12:03:19 Hack Driver: MARIANGEL MEASUREMENT RESULTS: Intervals: Rate: 57 NJ: 156 QRSD: 112 QT: 480 QTc: 467 Craig: P: 48 NJ: 156 QRS: -47 T: 57 INTERPRETIVE STATEMENTS: Sinus bradycardia Left anterior fascicular block Abnormal ECG Compared to ECG 12/15/2021 16:34:40 Left anterior fascicular block now present Left-axis deviation no longer present Electronically Signed On 09-30-22 14:23:15 PRODUCTION CONTROL TECHNOLOGIST by Vasquez Keating
--- NOTE | 2022-09-30 14:29 | P.PN ---
Subjective Date of Service: 09/30/22 Primary Care Provider: Ernestina Chief Complaint: AMS/Dehydration/UTI Patient is awake and alert. He reports persistent stiffness in both lower extremities, worse on the right. Spouse stated patient is on immunotherapy for rheumatoid arthritis and SLE. Physical Examination - Vital Signs Temperature: 98.2 F Blood Pressure: 106/60 Pulse: 56 Respirations: 20 Pulse Ox (%): 95 Assessment And Plan - Plan Physical Exam General: Alert, Oriented x3 HEENT: Atraumatic, Normocephalic, PERRLA Neck: Supple, 2+ carotid pulse no bruit Respiratory: Clear to auscultation bilaterally, Normal air movement Cardiovascular: No edema, Normal pulses Capillary refill: <2 Seconds Gastrointestinal: Normal bowel sounds, no tenderness Musculoskeletal: No swelling. Integumentary: generalized bruises. Neurological: Sensation intact, both lower extremities are spastic Plan: Spasticity/stiff joints Neuro checks AMS resolved. PT/OT consulted for weakness/stiffness. CT head : No acute disease Spouse report patient has been experiencing tremors in his hands. Parkinson's disease is possible versus rheumatoid/lupus flare Obtain MRI of the brain tomorrow Continue Sinemet and assess for improvement. Neurology Dr. Galarza input appreciated. Blood cultures shows no growth. UA with no significant evidence of UTI. Discontinue Rocephin. COVID-19 Patient tested positive for COVID-19 on 09/17/22 No pneumonia. Continue droplet isolation Hyperlipidemia Continue statin Lupus Continue home medications-hydroxychloroquine and prednisone Rheumatoid arthritis Continue home medications-hydroxychloroquine and prednisone GERD Continue home medication Code Status: Full code
[2022-10-01 00:34] VITALS: O2SAT 99
[2022-10-01] MEDS: ACETAMINOPHEN 500 MG TAB PO PRN ×3 (03:14→13:22)
[2022-10-01 05:38] LABS: Absolute Lymphocytes (CBC) 1.1 K/uL (0.7-4.9); Hematocrit 24.3 % (39.6-49.0); Lymphocytes % 44.7 % (15.3-44.8); MCV 108.1 fL (80-100); MPV 9.5 fL (7.6-11.3); RBC Red Blood Cell Count 2.25 M/uL (4.33-5.43)
[2022-10-01 05:57] LABS: Potassium 3.5 mmol/L (3.5-5.1)
[2022-10-01] MEDS ORDERED: POTASSIUM CL SA 10 MEQ TAB PO ONE (06:06)
[2022-10-01] MEDS: NA CHLORIDE 0.9% 1,000 ML IV SCH (06:27)
[2022-10-01] MEDS: predniSONE 5 MG TAB PO SCH (07:35)
[2022-10-01] MEDS: PANTOPRAZOLE 40MG TABLET PO SCH (07:35)
[2022-10-01] MEDS: ENOXAPARIN 40 MG/0.4 ML SQ SCH (07:36)
[2022-10-01] MEDS: FAMOTIDINE 20 MG TAB PO SCH (07:36)
[2022-10-01] MEDS: MONTELUKAST 10 MG TAB PO SCH (07:36)
[2022-10-01] MEDS: ATORVASTATIN 40 MG TAB PO SCH (07:36)
[2022-10-01] MEDS: SUCRALFATE 1 GM TABLET PO SCH (07:36)
[2022-10-01] MEDS: GABAPENTIN 300 MG CAP PO SCH (07:36)
[2022-10-01] MEDS: CARBIDOPA/LEVODOPA 25/100 TAB PO SCH (07:36)
[2022-10-01] MEDS: DOCUSATE NA 100 MG CAP PO SCH (07:36)
[2022-10-01] MEDS: HYDROXYCHLOROQUINE 200MG TAB PO SCH (07:37)
[2022-10-01] MEDS: SIMETHICONE 125 MG PO SCH (07:37)
--- NOTE | 2022-10-01 09:55 | P.PN ---
Subjective Date of Service: 10/01/22 Primary Care Provider: Ernestina Chief Complaint: AMS/Dehydration/UTI Patient sitting in the chair with the at the bedside. Denied having any chest pain, shortness of breath, nausea, vomiting, diarrhea, or constipation. Patient is very pleasant. Physical Examination - Vital Signs Temperature: 97.9 F Blood Pressure: 115/62 Pulse: 56 Respirations: 17 Pulse Ox (%): 98 - Physical Exam General: Alert, In no apparent distress, Oriented x3 Respiratory: Clear to auscultation bilaterally Cardiovascular: No edema, Normal pulses, Normal S1 S2 Gastrointestinal: Normal bowel sounds Musculoskeletal: No swelling, No tenderness Integumentary: No rashes, No breakdown, Other (ecchymoses seen bilateral upper extremities) Neurological: Normal speech, Normal tone - Studies Current Medications: Acetaminophen (Acetaminophen 500 Mg Tab) 500 mg PO Q4HP PRN PRN Reason: Pain scale 2-4 (Mild) Last Admin: 10/01/22 07:36 Dose: 500 mg Atorvastatin Calcium (Atorvastatin 40 Mg Tab) 40 mg PO DAILY [facility] Last Admin: 10/01/22 07:36 Dose: 40 mg Carbidopa/Levodopa (Carbidopa/Levodopa 25/100 Tab) 1 tab PO BID [facility] Last Admin: 10/01/22 07:36 Dose: 1 tab Docusate Sodium (Docusate Na 100 Mg Cap) 100 mg PO DAILY [facility] Last Admin: 10/01/22 07:36 Dose: 100 mg Enoxaparin Sodium (Enoxaparin 40 Mg/0.4 Ml) 40 mg SQ DAILY [facility] Last Admin: 10/01/22 07:36 Dose: 40 mg Famotidine (Famotidine 20 Mg Tab) 40 mg PO DAILY [facility]; Protocol Last Admin: 10/01/22 07:36 Dose: 40 mg Gabapentin (Gabapentin 300 Mg Cap) 300 mg PO BID [facility] Last Admin: 10/01/22 07:36 Dose: 300 mg Home Med (Simethicone [Simethicone]) 125 mg PO BID [facility] Last Admin: 10/01/22 07:37 Dose: Not Given Hydroxychloroquine Sulfate (Hydroxychloroquine 200mg Tab) 200 mg PO BID [facility] Last Admin: 10/01/22 07:37 Dose: 200 mg Sodium Chloride (Ns 1000 Ml Ivbag) 1,000 mls @ 75 mls/hr IV .[id number] [facility] Last Admin: 10/01/22 06:27 Dose: 1,000 mls Melatonin (Melatonin 5 Mg Tablet) 5 mg PO BEDTIME PRN PRN PRN Reason: INSOMNIA Last Admin: 09/28/22 22:23 Dose: 5 mg Montelukast Sodium (Montelukast 10 Mg Tab) 10 mg PO DAILY [facility] Last Admin: 10/01/22 07:36 Dose: 10 mg Ondansetron HCl (Ondansetron 4 Mg/2 Ml Vial) 4 mg IV Q6HP PRN PRN Reason: NAUSEA / VOMITING Pantoprazole Sodium (Pantoprazole 40mg Tablet) 40 mg PO DAILY [facility]; Protocol Last Admin: 10/01/22 07:35 Dose: 40 mg Prednisone (Prednisone 5 Mg Tab) 10 mg PO DAILY [facility] Last Admin: 10/01/22 07:35 Dose: 10 mg Sodium Chloride (Flush Normal Saline 10 Ml) 10 ml IV BID [facility] Last Admin: 10/01/22 07:37 Dose: Not Given Sucralfate (Sucralfate 1 Gm Tablet) 1 gm PO DAILY [facility] Last Admin: 10/01/22 07:36 Dose: 1 gm Microbiology 09/28/22 12:17 Blood - Blood Aerobic Blood Culture - Preliminary No growth in 24 hours. 09/28/22 12:17 Blood - Blood Anaerobic Blood Culture - Preliminary No growth in 24 hours. 09/28/22 11:35 Blood - Blood Aerobic Blood Culture - Preliminary No growth in 24 hours. 09/28/22 11:35 Blood - Blood Anaerobic Blood Culture - Preliminary No growth in 24 hours. Assessment And Plan - Plan There is no signs of urinary tract infection. ID will sign off the case and will keep monitoring the patient for signs of infections with fever and WBC trends - COVID-19 pneumonia - Anemia of chronic disease: Keep Monitoring H&H - Moderate protein calorie malnutrition: Encourage protein oral intake to maintain adequate immunity - RA - CAD - HLD - GERD - Leukopenia: Patient will follow up with his hematology outpatient Case has been discussed with Dr. Nicolas, N
--- NOTE | 2022-10-01 12:40 | RAD REPORT ---
EXAM DESCRIPTION: MRI - Brain W/Wo Cont - 10/01/2022 12:31 pm CLINICAL HISTORY: Lower extremity tremors and stiffness Headache, drowsiness, involuntary movement. COMPARISON: Head Brain Wo Cont dated 12/15/2021 TECHNIQUE: Multi-sequence, multiplanar MR imaging of the brain was performed with contrast. FINDINGS: No intracranial hemorrhage, hydrocephalus, or extra-axial fluid collection.Mild brain atro phy. No edema or shift of midline structures. No intracranial mass. DWI is negative for acute CVA. The midline structures are normally formed. Mild mucosal thickening right frontal sinus. Post-contrast images show no abnormal enhancement to suggest tumor or infection. Tortuous vertebrobasilar system noted with some mass effect seen on the left medulla. IMPRESSION: No acute process seen. There is significant tortuous nature of vertebrobasilar system wi th mass effect evident on the medulla left aspect. No evidence of an acute CVA. No worrisome pathologic enhancement seen.
--- NOTE | 2022-10-01 12:58 | RAD REPORT ---
EXAM DESCRIPTION: MRI - C Spine Wo Cont - 10/01/2022 12:17 pm CLINICAL HISTORY: Leg stiffness COMPARISON: Head C Spine Mpr Wo Con dated 09/28/2022 TECHNIQUE: Sagittal T1-weighted, T2-weighted and T2-STIR sequences were obtained as well as axial T2 medic sequence obtained. FINDINGS: Cervical vertebral bodies are normal in height and alignment. No suspicious marrow edema o r marrow replacing process. Cerebellar tonsils and mid-line skull base show no suspicious finding. No significant finding at the C1 and C2 levels. C2-3 level: Small central disc protrusion without significant neural foraminal narrowing or central s randall stenosis. C3-4 level: Uncovertebral joint hypertrophy with small posterior disc osteophyte complex results in s evere left and [id number] right neural foraminal narrowing. Central spinal stenosis is mild. C4-5 level: Small posterior disc osteophyte complex uncovertebral joint hypertrophy results in modera te left and mild right neural foraminal narrowing. No significant central spinal stenosis. C5-6 level: Posterior disc osteophyte complex uncovertebral joint hypertrophy results in mild to mode rate right C6-7 level: Uncovertebral joint hypertrophy and posterior disc osteophyte complex without significant neural foraminal narrowing or central spinal stenosis . C7-T1 level: No significant findings. Cervical cord shows no focal narrowing, expansion or signal abnormality. IMPRESSION: No high-grade central spinal stenosis is noted to explain the presence of lower extremit y weakness. Neural foraminal narrowing as noted above.
--- NOTE | 2022-10-01 16:15 | P.DS ---
Admission Date: 09/28/22 Discharge Date: 10/01/22 Primary Care Provider: Ernestina Disposition: DC HOME/HOME HEALTH CARE Discharge Condition: FAIR Reason for Admission: AMS/Dehydration/UTI Brief History of Present Illness: This is a 79-year-old female with past medical history significant for anemia, GERD, hyperlipidemia, DC with 5 stents, lupus, rheumatoid arthritis. Patient presents to the emergency department via wheelchair with complaints of weakness. The patient was evaluated in the ER with his at the bedside. Patient is alert and oriented x3 but very lethargic and slow to answer questions. Patient reported weakness, back pain, poor balance, joint stiffness, nausea, dizziness and poor appetite. She patient took ibuprofen, acetaminophen with codeine, and baclofen. She reported a change in mental status after her took these medications. She said as the week went on, his mental status worsened. Patient reported generalized stiffness more prominent in his lower extremities. Per , stiffness started 2 months ago. He usually uses his cane, but ever since then, he has been having a hard time walking and getting around. Head CT unremarkable and shows no acute disease. Patient was admitted for further management. Hospital Course: Patient was admitted to the medical floor and the following medical problems addressed: Spasticity/stiff joints AMS likely secondary to baclofen which resolved. Spouse report patient has been experiencing tremors in his hands. Parkinson's disease was considered. Rheumatoid/lupus flare versus baclofen induced myoclonic also possible cause. Patient seen in consultation by neurology who recommended a trial of Sinemet. Seen by PT for weakness and stiffness. CT head : No acute disease MRI of the brain showed no acute disease. Cervical spine MRI also unremarkable. Patient neurologic condition markedly improved. Currently able to walk, and sit without any difficulty. Blood cultures shows no growth. UA with no significant evidence of UTI. He was treated with IV Rocephin for possible UTI He will follow-up with Dr. Galarza as an outpatient regarding possible Parkinson's disease. COVID-19 Patient tested positive for COVID-19 on 09/17/22 No pneumonia. He was asymptomatic. Hyperlipidemia Continue statin Lupus Continued home medications-hydroxychloroquine and prednisone Rheumatoid arthritis Continued home medications-hydroxychloroquine and prednisone GERD Continued home medications Patient neurology symptoms significantly improved. He is deemed stable for discharge. He is prescribed Sinemet to continue treatment for Parkinson's disease. Vital Signs/Physical Exam: Temp Pulse Resp BP Pulse Ox 97.8 F 54 17 115/70 96 10/01/22 12:00 10/01/22 12:00 10/01/22 12:00 10/01/22 12:00 10/01/22 12:00 General: Alert, In no apparent distress, Oriented x3 HEENT: Mucous membr. moist/pink Neck: JVD not distended Respiratory: Clear to auscultation bilaterally, Normal air movement Cardiovascular: No edema, Regular rate/rhythm, Normal S1 S2 Gastrointestinal: Soft and benign, Non-distended, No tenderness Musculoskeletal: No swelling Integumentary: No rashes Neurological: Normal strength at 5/5 x4 extr, Cranial nerves 3-12 intact Laboratory Data at Discharge: WBC 2.40 K/uL (4.3-10.9) L 10/01/22 05:05 Hgb 8.3 g/dL (13.6-17.9) L D 10/01/22 05:05 Hct 24.3 % (39.6-49.0) L 10/01/22 05:05 Plt Count 178 K/uL (152-406) 10/01/22 05:05 PT 14.6 SECONDS (9.5-12.5) H 09/28/22 11:35 INR 1.33 09/28/22 11:35 Sodium 141 mmol/L (136-145) 10/01/22 05:05 Potassium 3.5 mmol/L (3.5-5.1) 10/01/22 05:05 BUN 15 mg/dL (7-18) 10/01/22 05:05 Creatinine 0.65 mg/dL (0.70-1.30) L 10/01/22 05:05 Glucose 100 mg/dL (74-106) 10/01/22 05:05 Phosphorus 3.0 mg/dL (2.5-4.9) 09/29/22 04:44 Magnesium 2.3 mg/dL (1.6-2.4) 09/29/22 04:44 Total Bilirubin 0.5 mg/dL (0.2-1.0) 09/28/22 11:35 AST 12 U/L (15-37) L 09/28/22 11:35 ALT 11 U/L (16-61) L 09/28/22 11:35 Alkaline Phosphatase 64 U/L (45-117) 09/28/22 11:35 Lipase 70 U/L (73-393) L 09/28/22 11:35 Home Medications: Aspirin Chewable [Aspirin Chewable*] 81 mg PO DAILY 09/28/22 Atorvastatin Calcium 40 mg PO DAILY 09/28/22 Docusate [Colace Cap*] 50 mg PO DAILY 09/28/22 Famotidine [Pepcid*] 40 mg PO DAILY 09/28/22 Gabapentin 300 mg PO BID 09/28/22 Hydroxychloroquine [Plaquenil*] 200 mg PO BID 09/28/22 Montelukast Sodium 10 mg PO DAILY 09/28/22 Pantoprazole [Protonix Tab*] 40 mg PO DAILY 09/28/22 Simethicone 125 mg PO BID 09/28/22 Sucralfate [Carafate*] 1 g PO DAILY 09/28/22 predniSONE [Prednisone*] 10 mg PO DAILY 09/28/22 Carbidopa/Levodopa 25-100 [Sinemet 25-100*] 1 tab PO BID #60 tab 10/01/22 New Medications: Carbidopa/Levodopa 25-100 [Sinemet 25-100*] 1 tab PO BID #60 tab Diet: AHA Activity: Fall precautions Followup: Jose Martin Galarza MD [ASSOCIATE-ACTIVE - CAN ADMIT] - 1-2 Weeks NONE,NONE [Primary Care Provider] - Time spent managing pt's care (in minutes): 36
[2022-10-01 21:02] VITALS: BP 115/62; TEMP 97.9
== END 2022-10-01 17:00 | disposition home health service (06) | DRG 56 ==
LOC: ER 11:09 → ERHOLD 13:12 → 4TH 18:15
PROVIDERS: ADMIT Internal Medicine; ATTEND Internal Medicine
DX: G20 Parkinson's disease (principal); G93.41 Metabolic encephalopathy; U07.1 COVID-19; N17.9 Acute kidney failure, unspecified; E44.0 Moderate protein-calorie malnutrition; G25.3 Myoclonus; E11.9 Type 2 diabetes mellitus without complications; K21.9 Gastro-esophageal reflux disease without esophagitis; E86.0 Dehydration; E78.5 Hyperlipidemia, unspecified; M32.9 Systemic lupus erythematosus, unspecified; M06.9 Rheumatoid arthritis, unspecified; D63.8 Anemia in other chronic diseases classified elsewhere; I25.2 Old myocardial infarction; D72.819 Decreased white blood cell count, unspecified; T42.8X5A Adverse effect of antiparkinsonism drugs and other central muscle-tone depressants, initial encounter; Z99.3 Dependence on wheelchair; Z95.5 Presence of coronary angioplasty implant and graft; Z79.52 Long term (current) use of systemic steroids; Z79.82 Long term (current) use of aspirin; Z68.25 Body mass index [BMI] 25.0-25.9, adult; Z87.891 Personal history of nicotine dependence; Z79.899 Other long term (current) drug therapy
CPT/HCPCS: 0240U; 36415; 70450; 70553; 71045; 72125; 72141; 74176; 76377; 80048; 80076; 81003; 81015; 83605; 83690; 83735; 83880; 84100; 84484; 85025; 85610; 87040; 93005; 96361; 96365; 97116; 97161; 97165; 97530; 99285; A9577; G0378; J1650; J7030; J7512

== ENCOUNTER 2023-08-05 10:16 | Inpatient (IN) | payer OTHER ==
--- OUTSIDE RECORDS SUMMARY | 2023-08-05 10:22 | XMS REPORT | Continuity of Care Document ---
:1945 Author Organization Formerly [facility] t Address [address] [place] [address] Care Team Providers Name Role Phone Avelino Acosta MD Primary Care Physician Gracia Zamora MD Attending Clinician FOG_A_Provider Attending Clinician Unavailable Aristeo Starr MA Attending Clinician Unavailable Mary Richey MA Attending Clinician Unavailable Bui_Q Attending Clinician Unavailable MD GRACIA ZAMORA Attending Clinician Unavailable Bui_Q_WAG Attending Clinician Unavailable Darinel Singh Attending Clinician Chidi Sweeney Attending Clinician FOG_A_Provider Admitting Clinician Unavailable Bui_Q Admitting Clinician Unavailable GRACIA ZAMORA Admitting Clinician Unavailable MD GRACIA ZAMORA Admitting Clinician Unavailable Bui_Q_WAG Admitting Clinician Unavailable Chidi Sweeney Admitting Clinician Payers Payer Name Policy Type Policy Number Effective Date Expiration Date S sunita AEKARI (MEDICARE [id number] 2022 REPLACEMENT PPO) 00:00:00 Problems Condition Condition Condition Status Onset Resolution Last Treating Co mments Source Name Details Category Date Date Treatment Clinician Date Lumbosacra Lumbosacra Problem Active A zalea l l 3-21 Orthope spondylosi Spondylosi 00:00: di c s s 00 Sports Medicin e Low back Low Back Problem Active Azale a pain Pain 3-21 Orthope 00:00: dic 00 Sports Medicin e Closed Closed Problem Active Melanie fracture Fracture 3-21 Orthop e lumbar Lumbar 00:00: dic vertebra, Vertebra, 00 Spor ts wedge Wedge Medicin e Closed Closed Problem Active Melanie fracture Fracture 3-21 Orthop e of fourth of Fourth 00:00: dic lumbar Lumbar 00 Sports vertebra Vertebra Medici n e Compressio Compressio Problem Active A zalea n fracture n Fracture 3-09 Or thope of lumbar of Lumbar 00:00: dic spine Spine 00 Sports Medicin e Mixed Mixed Disease Active [facility]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 hyperlipid 9 [facility] emia [facility]ospita 00 l Abnormal Abnormal Disease Active Metho di stress stress 4 st test test 00:00: Hospita 00 l Chest pain Chest pain Disease Active M ethodi [facility] 00:00: Hospita 00 l Dizziness Dizziness Disease Active [facility] h[facility] 3-16 st 00:00: Hospita 00 l History of History of Disease Active M [facility]i coronary coronary 3-16 st artery artery 00:00: Hospita stent stent 00 l placement placement 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 Active [facility] [place] [facility] artery artery 00:00: Hospita 00 l R05 - R05 - Diagnosis Active 2018-092019-08-18 Mem oria COUGH COUGH 2- 11:53:00 l Active 00:01: [place] 08/18/2019 00 SUNDAY [employer] C34.31 C34.31 Diagnosis Active 2019-04-11 [place] MALIGNANT MALIGNANT 04-06 12:47:00 l NEOPLASM NEOPLASM 00:00: Humza n OF LOWER OF LOWER 00 LOBE, LOBE, Active 04/06/2019 [place] CAP, FEVER CAP, Diagnosis Active 2019-02-12 [place] FEVER 5-28 13:40:00 l Active 00:00: [place] 02/10/2019 [facility] [place] FLUID ON FLUID ON Diagnosis Active 2019-02-10 Memoria LUNGS LUNGS 5-28 20:50:00 l Active 00:00: [place] 02/10/2019 [facility] [place] Pneumonia, Pneumonia Problem 2019-02-15 [place] unspecifie , 22:27:14 l d organism unspecifie He rmann d organism 9 [facility] MALIGNANT MALIGNANT Diagnosis Active 2019-04-11 Memoria NEOPLASM NEOPLASM 12:47:00 l OF LOWER OF LOWER Humza n LOBE, LOBE, RIGHT RIGHT Active [place] PNEUMONIA, PNEUMONIA Diagnosis Active 2019-02-12 Memoria UNSPECIFIE , 13:40:00 l D ORGANISM UNSPECIFIE He rmtaylor D ORGANISM Active [facility] FEVER, FEVER, Diagnosis Active 2019-02-12 Me moria UNSPECIFIE UNSPECIFIE 13:40:00 l D D Active [facility] History of Past Illness Condition Condition Condition Status Onset Resolution Last Treating Co mments Source Name Details Category Date Date Treatment Clinician Date Pleural Pleural Problem 2018-2019-02-15 2019-02-15 Memoria effusion, effusion, 02-10 22:27:14 22:27:14 l not not 17:00: [place] elsewhere elsewhere 00 classified classified 02/10/2019 02/15/2019 [facility] Other Other Problem 2018-2019-02-15 2019-02-15 M emoria fatigue fatigue 02-10 22:27:14 22:27:14 l 02/10/2019 17:00: Humza n 02/15/2019 00 [facility] Chest Chest Problem 2018-2019-02-15 2019-02-15 M emoria pain, pain, 02-10 22:27:14 22:27:14 l unspecifie unspecifie 17:00: He rmann d d 00 02/10/2019 02/15/2019 [facility] Allergies, Adverse Reactions, Alerts This patient has no known allergies or adverse reactions. Social History Social Habit Start Date Stop Date Quantity Comments Source History of tobacco Current smoker [facility] Alcohol intake 2021-01-06 2021-01-06 Ex-drinker [facility] 00:00:00 00:00:00 (finding) Hospital History of Social 2021-01-06 2021-01-[address] function 00:00:00 00:00:00 Hospital Tobacco use and 2020-11-29 2020-11-29 Smokeless Sabianism exposure 00:00:00 00:00:00 tobacco non-user Hospital Social History 2019-02-11 2019-02-[address] [facility] ermtaylor 02:14:42 02:14:42 Sex [birth year] [facility]ian[facility] 00:00:00 00:00:00 Hospital Smoking Status Start Date Stop Date Source Former Smoker Melanie gonzalez Sports [facility] Medications Ordered Filled Start Stop Current Ordering Indication Dosage Frequency Signature Comments Components Source Medication Medication Date Date Medication? Clinician (SIG) Name Name atorvastati 0 Yes [id number] TAKE 1 [facility] (LIPITOR) 9-[address] 40 mg 00:00: MOUTH Hospita tablet 00 EVERY DAY l atorvastati 2022-0 Yes [id number] TAKE 1 [facility] (LIPITOR) 9-[address] 40 mg 00:00: MOUTH Hospita tablet 00 EVERY DAY l atorvastati 2022-0 Yes [id number] TAKE 1 [facility] n (LIPITOR) 9-[address] 40 mg 00:00: MOUTH Hospita tablet 00 EVERY DAY l predniSONE 2022-0 Yes 5mg QD Take 1 Metho di (DELTASONE) 9-05 tablet (5 st 5 mg tablet 11:34: mg total) H ospita 39 by mouth l daily. lansoprazol 2022-0 Yes 30mg QD Take 1 Meth luis carlos e 9-[address] (PREVACID) 11:34: (30 mg Hospi ta 30 MG 39 total) by l capsule mouth daily. hydrOXYchlo 2022-0 Yes 200mg Q.5D Take 1 Met hodi roQUINE 9-[address] (PLAQUENIL) 11:34: (200 mg Hos joshua 200 mg 39 total) by l tablet mouth 2 (two) times a day. montelukast 2022-0 Yes 10mg QD Take 1 Meth luis carlos (SINGULAIR) 9-05 tablet (10 st 10 mg 11:34: mg total) Hospita tablet 39 by mouth l nightly. azaTHIOprin 3-0 Yes 50mg Q.5D Take 1 Meth luis carlos e (IMURAN) 9-05 tablet (50 st 50 mg 11:34: mg total) Hospita tablet 39 by mouth 2 l (two) times a day. sucralfate 2022-0 Yes 1g QD Take 1 Metho di (CARAFATE) 9-05 tablet (1 st 1 gram 11:34: g total) Hospita tablet 39 by mouth l daily. famotidine 2022-0 Yes 40mg QD Take 1 Metho di (PEPCID) 40 9-05 tablet (40 st MG tablet 11:34: mg total) Hos joshua 39 by mouth l daily. acetaminoph 2022-0 Yes 500mg Q6H Take 1 Met hodi en 9-[address] (TYLENOL) 11:34: (500 mg Hospi ta 500 MG 39 total) by l tablet mouth every 6 (six) hours as needed for mild pain. vit 2022-0 Yes 1{tbl} Q.5D Take 1 [facility] C/E/Zn/meryl 9-[address] r/lutein/ze 11:34: mouth 2 Hos joshua axan 39 (two) l (PRESERVISI times a ON AREDS-2 day. ORAL) docusate 2022-0 Yes 50mg Q.5D Take 1 [facility] sodium 9-[address] (COLACE) 50 11:34: (50 mg Hosp jose a MG capsule 39 total) by l mouth 2 (two) times a day. lactobacill 2022-0 Yes 1{tbl} Q.5D Take 1 Me thodi us combo 9-[address] no[address]13 11:34: mouth 2 Hospita (Probiotic 39 (two) l Pearls times a Complete) 1 day. billion cell capsule,del ayed release(DR/ EC) simethicone 2022-0 Yes 180mg Q.5D Take 180 M ethodi (MYLICON) 9-[address] 125 mg 11:34: mouth 2 Hospita capsule 39 (two) l times a day. predniSONE 2022-0 Yes 5mg QD Take 1 Metho di (DELTASONE) 9-05 tablet (5 st 5 mg tablet 11:34: mg total) H ospita 39 by mouth l daily. lansoprazol 2022-0 Yes 30mg QD Take 1 Meth luis carlos e 9-[address] (PREVACID) 11:34: (30 mg Hospi ta 30 MG 39 total) by l capsule mouth daily. hydrOXYchlo 2022-0 Yes 200mg Q.5D Take 1 Met hodi roQUINE 9-[address] (PLAQUENIL) 11:34: (200 mg Hos joshua 200 mg 39 total) by l tablet mouth 2 (two) times a day. montelukast 2022-0 Yes 10mg QD Take 1 Meth luis carlos (SINGULAIR) 9-05 tablet (10 st 10 mg 11:34: mg total) Hospita tablet 39 by mouth l nightly. azaTHIOprin 2022-0 Yes 50mg Q.5D Take 1 Meth luis carlos e (IMURAN) 9-05 tablet (50 st 50 mg 11:34: mg total) Hospita tablet 39 by mouth 2 l (two) times a day. sucralfate 2022-0 Yes 1g QD Take 1 Metho di (CARAFATE) 9-05 tablet (1 st 1 gram 11:34: g total) Hospita tablet 39 by mouth l daily. famotidine 2022-0 Yes 40mg QD Take 1 Metho di (PEPCID) 40 9-05 tablet (40 st MG tablet 11:34: mg total) Hos joshua 39 by mouth l daily. acetaminoph 0 Yes 500mg Q6H Take 1 Met hodi en 9-[address] (TYLENOL) 11:34: (500 mg Hospi ta 500 MG 39 total) by l tablet mouth every 6 (six) hours as needed for mild pain. vit 2022-0 Yes 1{tbl} Q.5D Take 1 [facility] C/E/Zn/meryl 9-[address] r/lutein/ze 11:34: mouth 2 Hos joshua axan 39 (two) l (PRESERVISI times a ON AREDS-2 day. ORAL) docusate 2022-0 Yes 50mg Q.5D Take 1 [facility] sodium 9-[address] (COLACE) 50 11:34: (50 mg Hosp jose a MG capsule 39 total) by l mouth 2 (two) times a day. lactobacill 0 Yes 1{tbl} Q.5D Take 1 Me thodi us combo 9-[address] no[address]13 11:34: mouth 2 Hospita (Probiotic 39 (two) l Pearls times a Complete) 1 day. billion cell capsule,del ayed release(DR/ EC) simethicone 2022-0 Yes 180mg Q.5D Take 180 M ethodi (MYLICON) 9-[address] 125 mg 11:34: mouth 2 Hospita capsule 39 (two) l times a day. predniSONE 2022-0 Yes 5mg QD Take 1 Metho di (DELTASONE) 9-05 tablet (5 st 5 mg tablet 11:34: mg total) H ospita 39 by mouth l daily. lansoprazol 2023-0 Yes 30mg QD Take 1 Meth luis carlos e 9-[address] (PREVACID) 11:34: (30 mg Hospi ta 30 MG 39 total) by l capsule mouth daily. hydrOXYchlo 2023-0 Yes 200mg Q.5D Take 1 Met hodi roQUINE 9-[address] (PLAQUENIL) 11:34: (200 mg Hos joshua 200 mg 39 total) by l tablet mouth 2 (two) times a day. montelukast 2023-0 Yes 10mg QD Take 1 Meth luis carlos (SINGULAIR) 9-05 tablet (10 st 10 mg 11:34: mg total) Hospita tablet 39 by mouth l nightly. azaTHIOprin 2023-0 Yes 50mg Q.5D Take 1 Meth luis carlos e (IMURAN) 9-05 tablet (50 st 50 mg 11:34: mg total) Hospita tablet 39 by mouth 2 l (two) times a day. sucralfate 2023-0 Yes 1g QD Take 1 Metho di (CARAFATE) 9-05 tablet (1 st 1 gram 11:34: g total) Hospita tablet 39 by mouth l daily. famotidine 3-0 Yes 40mg QD Take 1 Metho di (PEPCID) 40 9-05 tablet (40 st MG tablet 11:34: mg total) Hos joshua 39 by mouth l daily. acetaminoph 2023-0 Yes 500mg Q6H Take 1 Met hodi en -[address] (TYLENOL) 11:34: (500 mg Hospi ta 500 MG 39 total) by l tablet mouth every 6 (six) hours as needed for mild pain. vit 2023-0 Yes 1{tbl} Q.5D Take 1 [facility] C/E/Zn/meryl 9-[address] r/lutein/ze 11:34: mouth 2 Hos joshua axan 39 (two) l (PRESERVISI times a ON AREDS-2 day. ORAL) docusate 2023-0 Yes 50mg Q.5D Take 1 [facility] sodium 9-[address] (COLACE) 50 11:34: (50 mg Hosp jose a MG capsule 39 total) by l mouth 2 (two) times a day. lactobacill Yes 1{tbl} Q.5D Take 1 Me thodi us combo 9-[address] no[address]13 11:34: mouth 2 Hospita (Probiotic 39 (two) l Pearls times a Complete) 1 day. billion cell capsule,del ayed release(DR/ EC) simethicone Yes 180mg Q.5D Take 180 M ethodi (MYLICON) 9-[address] 125 mg 11:34: mouth 2 Hospita capsule 39 (two) l times a day. atorvastati 2021-09 Yes [id number] TAKE 1 [facility] n (LIPITOR) 0-[address] 40 mg 00:00: MOUTH Hospita tablet 00 EVERY DAY l atorvastati 2021-09 Yes [id number] TAKE 1 [facility] n (LIPITOR) 0-[address] 40 mg 00:00: MOUTH Hospita tablet 00 EVERY DAY l atorvastati 2021-09- No [id number] TAKE 1 [facility] n (LIPITOR) 0-10 09-[address] 40 mg 00:00: 00:00 MOUTH Hospita tablet 00 :00 EVERY DAY l atorvastati 2021-09- No [id number] TAKE 1 [facility] n (LIPITOR) 0-10 09-[address] 40 mg 00:00: 00:00 MOUTH Hospita tablet 00 :00 EVERY DAY l atorvastati 2021-09- No [id number] TAKE 1 [facility] n (LIPITOR) 0-10 09-[address] 40 mg 00:00: 00:00 MOUTH Hospita tablet 00 :00 EVERY DAY l predniSONE 0 Yes 5mg [...] Yes 1{tbl} Q.5D Take 1 [facility] C/E/Zn/meryl -[address] r/lutein/ze 11:32: mouth 2 Hos joshua axan 14 (two) l (PRESERVISI times a ON AREDS-2 day. ORAL) docusate 0 Yes 50mg Q.5D Take 50 mg Met hodi sodium - by mouth 2 st (COLACE) 50 11:32: (two) Hospi ta MG capsule 14 times a l day. lactobacill Yes 1{tbl} Q.5D Take 1 Me thodi us combo -[address] no[address]13 11:32: mouth 2 Hospita (Probiotic 14 (two) l Pearls times a Complete) 1 day. billion cell capsule,del ayed release(DR/ EC) simethicone 0 Yes 180mg Q.5D Take 180 M ethodi (MYLICON) 9-[address] 125 mg 11:32: mouth 2 Hospita capsule 14 (two) l times a day. predniSONE 0 Yes 5mg QD Take 5 mg Me thodi (DELTASONE) - by mouth st 5 mg tablet 11:32: daily. Hosp jose a 14 l lansoprazol 2021-0 Yes 30mg QD Take 30 mg Methodi e 9-[address] (PREVACID) 11:32: daily. Hospi ta 30 MG 14 l capsule hydrOXYchlo 2021-0 Yes 200mg Q.5D Take 200 M ethodi roQUINE 9-[address] (PLAQUENIL) 11:32: mouth 2 Hos joshua 200 mg 14 (two) l tablet times a day. montelukast 2021-0 Yes 10mg QD Take 10 mg Methodi [...] Take 40 mg M ethodi (PEPCID) 40 - by mouth st MG tablet 11:32: daily. Hospit a 14 l acetaminoph 0 Yes 500mg Q6H Take 500 M ethodi en 9-[address] (TYLENOL) 11:32: mouth Hospita 500 MG 14 every 6 l tablet (six) hours as needed for mild pain. vit 2021-0 Yes 1{tbl} Q.5D Take 1 [facility] C/E/Zn/meryl 9-[address] r/lutein/ze 11:32: mouth 2 Hos joshua axan 14 (two) l (PRESERVISI times a ON AREDS-2 day. ORAL) docusate 2021-0 Yes 50mg Q.5D Take 50 mg Met hodi sodium 9-[address] (COLACE) 50 11:32: (two) Hospi ta MG capsule 14 times a l day. lactobacill 2021-0 Yes 1{tbl} Q.5D Take 1 Me thodi us combo 9-[address] no[address]13 11:32: mouth 2 Hospita (Probiotic 14 (two) l Pearls times a Complete) 1 day. billion cell capsule,del ayed release(DR/ EC) simethicone Yes 180mg Q.5D Take 180 M ethodi (MYLICON) 9-[address] 125 mg 11:32: mouth 2 Hospita capsule 14 (two) l times a day. atorvastati 2020-09- No [id number] 40mg QD Take 1 Methodi n (LIPITOR) 0-22 10-10 tablet (40 s t 40 mg 00:00: 00:00 mg total) Hospit a tablet 00 :00 by mouth l daily. atorvastati 2020-09- No [id number] 40mg QD Take 1 [facility] n (LIPITOR) 0-22 10-10 tablet (40 s t 40 mg 00:00: 00:00 mg total) Hospit a tablet 00 :00 by mouth l daily. aspirin Yes 81mg QD Take 1 [facility] (ECOTRIN) 4-22 tablet (81 st 81 MG 00:00: mg total) Hospita enteric 00 by mouth l coated daily. tablet aspirin 0 Yes 81mg QD Take 1 [facility] (ECOTRIN) 4-22 tablet (81 st 81 MG 00:00: mg total) Hospita enteric 00 by mouth l coated daily. tablet aspirin 0 Yes 81mg QD Take 1 [facility] (ECOTRIN) 4-22 tablet (81 st 81 MG 00:00: mg total) Hospita enteric 00 by mouth l coated daily. tablet aspirin 0 Yes 81mg QD Take 1 [facility] (ECOTRIN) 4-22 tablet (81 st 81 MG 00:00: mg total) Hospita enteric 00 by mouth l coated daily. tablet aspirin 0 Yes 81mg QD Take 1 [facility] (ECOTRIN) [...] Tablet Refill(s) [Tylenol with Codeine #3] Dextrometho 2019- Yes 10 mL, PO, Memoria rphan 5-31 Q4H, PRN l Hydrobromid 19:28: Cough, X He rmann e 2 MG/ML / 00 10 day, # Guaifenesin 240 mL, 0 20 MG/ML Refill(s), Oral Pharmacy: [id number] Levofloxaci 2018- Yes 750 mg = 1 Memoria n 750 MG 5-31 tab, PO, l Oral Tablet 19:28: Q24H, X 7 H ermann [Levaquin] 00 day, # 7 tab, 0 Refill(s), Pharmacy: [facility] #[id number] montelukast 2018- No Notes: Nikolai lidia 5-30 (Same l 14:00: as:Singula ir) lansoprazol No 30 mg, Nikolai lidia [...] l 14:00: Plavix) Simethicone No Notes: Nikolai ldiia 5-30 (Same as: l 02:00: Mylicon) Ranitidine 0 No 150 mg, 1 Me moria 150 MG Oral 5-30 cap, l Capsule 02:00: Route: PO, Herm taylor Drug form: CAP, Bedtime, Dosing Weight 81.091, kg, Start date: 02/11/19 21:00:00 CDT, Duration: 30 day, Stop date: 03/12/19 21:00:00 CDT Pravastatin No Notes: Nikolai lidia 5-30 (Same as: l 02:00: Pravachol) [place] 00 cefTRIAXone No Notes: Nikolai lidia + sterile 5-30 (Same As: l water 10 mL 02:00: Rocephin). [place] 00 Use with 100 mL NS and infuse over 30 min MEDICATION WASTE Product Size: 1000 mg Product Wasted: ___ mg azithromyci No Notes: Nikolai lidia n + Sodium 5-30 (Same As: l Chloride 00:00: Zithromax Herm taylor 0.9% IV 250 00 IV) mL Protonix No Notes: Memoria 5-29 Tablet l 21:30: should not [place] 00 be chewed or crushed. (Same as: Protonix) Calcium No Notes: Memoria Gluconate 02-11 WASTE: F/P l 20:04: - Sink; E [place] 00 - Municipal Trash Bin Magnesium No Notes: Memori a Oxide - (Same as: l 20:04: Mag-Ox [place] 00 400) Magnesium oxide [id number] g elemental magnesium Dose=____m g magnesium oxide (___mg elemental magnesium) Magnesium No Notes: Memori a Sulfate -29 WASTE: F/P l 20:04: - Sink; E - Municipal Trash Bin Potassium No Notes: Memori a Chloride -29 Infuse at l 20:04: a rate of 10 mEq/hr. (Same as: KCL) sodium No Notes: Memoria phosphate 5-29 Infuse l 20:04: over 4 [place] 00 hour. Do not infuse phosphorou s concurrent ly in the same line as TPN or IVF that contains calcium. For double lumen central lines, phosphorou s may be infused in a separate lumen from TPN. potassium No Notes: Memori a phosphate 5-29 (Same as: l 20:04: K Phosphate. ) Do not infuse phosphorou s concurrent ly in the same line as TPN or IVF that contains calcium. For double lumen central lines, phosphorou s may be infused in a separate lumen from TPN. 1 mMol phoshate has 1.47 mEq potassium Infuse over 4 hours potassium No Notes: Memori a phosphate-s 5-29 (Same as: l odium 20:04: Phos-NaK) [place] phosphate 00 Each 1.5 250 mg-280 gm [...] cap, PO, l MG Oral 19:06: Daily, [place] Capsule 00 bedtime, 0 Refill(s) montelukast Yes 10 mg = 1 M emoria 10 mg oral 5-29 tab, PO, l tablet 19:06: Daily, 0 [place] 00 Refill(s) lansoprazol Yes 30 mg = 1 M emoria e 30 mg 5-29 cap, PO, l oral 19:06: Daily, 0 [place] delayed 00 Refill(s) release capsule simethicone Yes 125 mg = 1 Memoria 125 mg oral 5-29 cap, PO, l capsule 19:06: Daily, [place] 00 bedtime, # 60 cap, 0 Refill(s) clopidogrel Yes 75 mg = 1 M emoria 75 mg oral 5-29 tab, PO, l tablet 19:06: Daily, # [place] 00 30 tab, 0 Refill(s) pravastatin Yes 20 mg = 1 M emoria 20 mg oral 5-29 tab, PO, l tablet 19:06: Bedtime, # Cassi nn 00 30 tab, 0 Refill(s) Acetaminoph No Notes: Nikolai lidia en 325 MG / 5-29 (Same as: l Hydrocodone 04:49: Oneco [place] nn Bitartrate 00 325/5) Do 5 MG Oral not exceed Tablet 4gm/day of [Oneco acetaminop 5/325] hen. Ceftriaxone No 1 gm, Memor ia 5-29 Route: l 02:00: IVP, [place] 00 [id number], kg, Start date: 02/10/19 21:00:00 CDT, Duration: 7 day, Stop date: 02/16/19 21:00:00 CDT, ABX Indication : Pneumonia Azithromyci No Notes: Nikolai lidia n 02-11 (Same As: l 02:00: Zithromax IV) Dextrometho No Notes: Nikolai lidia rphan 02-11 (dextromet l Hydrobromid 01:15: horphan-gu [place] e 2 MG/ML / 00 aifenesin Guaifenesin 10-100mg/5 20 MG/ML ml 10 ml Oral oral SOLN Solution ud) (Same as: Robitussin DM) Acetaminoph No Notes: Do M emoria en 02-11 not exceed l 01:15: 4 gm/day. (Same as: Tylenol) Ondansetron No Notes: Nikolai lidia 02-11 (Same as: l 01:15: Zofran) MEDICATION WASTE Product Size: 4 mg Product Wasted: ___ mg NS (Bolus) No 500 mL, Nikolai lidia IV 02-10 500 ml/hr, l 23:56: Infuse Over: 1 hr, Route: IV, 500, Drug form: INJ, ONCE, Priority: STAT, kg, Start date: 02/10/19 18:56:00 CDT, Stop date: 02/10/19 18:56:00 CDT Azithromyci No Notes: Nikolai lidia n 02-10 (Same As: l 23:56: Zithromax IV) Ceftriaxone No Notes: Nikolai lidia - (Same As: l 23:55: Rocephin). Use with 100 mL NS and infuse over 30 min MEDICATION WASTE Product Size: 1000 mg Product Wasted: ___ mg famotidine famotidine No famotidine Melanie 40 mg 40 mg 40 mg [facility] tablet TAKE tablet TAKE tablet dic 1 TABLET BY 1 TABLET BY TAKE 1 Sports MOUTH MOUTH TABLET BY Medicin EVERYDAY AT EVERYDAY AT MOUTH e BEDTIME BEDTIME EVERYDAY AT BEDTIME Flovent HFA Flovent HFA No Flovent Melanie 110 110 HFA 110 [facility] mcg/actuati mcg/actuati mcg/actuat dic on aerosol on aerosol ion Spo rts inhaler inhaler aerosol Medici n INHALE 2 INHALE 2 inhaler e PUFFS INTO PUFFS INTO INHALE 2 THE LUNGS THE LUNGS PUFFS INTO TWICE A DAY TWICE A DAY THE LUNGS FOR 30 DAYS FOR 30 DAYS TWICE A DAY FOR 30 DAYS acetaminoph acetaminoph No acetaminop Melanie en 300 en 300 hen 300 [facility] mg-codeine mg-codeine mg-codeine dic 60 mg 60 mg 60 mg Sports tablet TAKE tablet TAKE tablet Medicin 1 TABLET BY 1 TABLET BY TAKE 1 e MOUTH TWICE MOUTH TWICE TABLET BY A DAY A DAY MOUTH TWICE A DAY gabapentin gabapentin No gabapentin Melanie 100 mg 100 mg 100 mg [facility] capsule capsule capsule dic TAKE 1 TAKE 1 TAKE 1 Sports CAPSULE BY CAPSULE BY CAPSULE BY Medicin MOUTH THREE MOUTH THREE MOUTH e TIMES A DAY TIMES A DAY THREE TIMES A DAY gabapentin gabapentin No gabapentin Melanie 300 mg 300 mg 300 mg [facility] capsule capsule capsule dic TAKE 1 TAKE 1 TAKE 1 Sports CAPSULE BY CAPSULE BY CAPSULE BY Medicin MOUTH TWICE MOUTH TWICE MOUTH e A DAY. A DAY. TWICE A DAY. hydroxychlo hydroxychlo No hydroxychl Melanie roquine 200 roquine 200 oroquine [facility] mg tablet mg tablet 200 mg dic TAKE 1 TAKE 1 tablet Sports TABLET (200 TABLET (200 TAKE 1 Medicin MG) BY MG) BY TABLET e MOUTH TWICE MOUTH TWICE (200 MG) A DAY A DAY BY MOUTH TWICE A DAY ibuprofen ibuprofen No ibuprofen Melanie 800 mg 800 mg 800 mg [facility] tablet TAKE tablet TAKE tablet dic 1 TABLET BY 1 TABLET BY TAKE 1 Sports MOUTH 3 MOUTH 3 TABLET BY Medi marie TIMES A DAY TIMES A DAY MOUTH 3 e TIMES A DAY levofloxaci levofloxaci No levofloxac Melanie n 500 mg n 500 mg in 500 mg Or thope tablet TAKE tablet TAKE tablet dic 1 TABLET BY 1 TABLET BY TAKE 1 Sports MOUTH EVERY MOUTH EVERY TABLET BY Medicin DAY DAY MOUTH e EVERY DAY mirtazapine mirtazapine No mirtazapin Melanie 7.5 mg 7.5 mg e 7.5 mg [facility] tablet TAKE tablet TAKE tablet dic 1 TABLET BY 1 TABLET BY TAKE 1 Sports MOUTH AT MOUTH AT TABLET BY La dicin BEDTIME BEDTIME MOUTH AT e BEDTIME montelukast montelukast No montelukas Melanie 10 mg 10 mg t 10 mg [facility] tablet TAKE tablet TAKE tablet dic 1 TABLET BY 1 TABLET BY TAKE 1 Sports MOUTH EVERY MOUTH EVERY TABLET BY Medicin DAY DAY MOUTH e EVERY DAY pantoprazol pantoprazol No pantoprazo Melanie e 40 mg e 40 mg le 40 mg Orth[facility] pe tablet,maged tablet,maged tablet,del dic yed release yed release ayed S ports TAKE 1 TAKE 1 release Medicin TABLET BY TABLET BY TAKE 1 e MOUTH EVERY MOUTH EVERY TABLET BY DAY IN THE DAY IN THE MOUTH MORNING MORNING EVERY DAY IN THE MORNING Paxlovid Paxlovid No Paxlovid Aza william 300 mg (150 300 mg (150 300 mg [facility] mg x 2)-100 mg x 2)-100 (150 mg x dic mg tablets mg tablets 2)-100 mg Sports in a dose in a dose tablets in Medicin pack (EUA) pack (EUA) a dose e TAKE 3 TAKE 3 pack (EUA) TABLETS BY TABLETS BY TAKE 3 MOUTH TWICE MOUTH TWICE TABLETS BY A DAY FOR 5 A DAY FOR 5 MOUTH DAYS DAYS TWICE A DAY FOR 5 DAYS prednisolon prednisolon No prednisolo Melanie e acetate 1 e acetate 1 ne acetate [facility] % eye % eye 1 % eye dic drops,suspe drops,suspe drops,susp Sports nsion nsion ension Medicin INSTILL 1 INSTILL 1 INSTILL 1 e DROP INTO DROP INTO DROP INTO LEFT EYE 4 LEFT EYE 4 LEFT EYE 4 TIMES A DAY TIMES A DAY TIMES A DAY amoxicillin amoxicillin No amoxicilli Melanie 875 mg 875 mg n 875 mg [facility] tablet TAKE tablet TAKE tablet dic 1 TABLET BY 1 TABLET BY TAKE 1 Sports MOUTH TWICE MOUTH TWICE TABLET BY Medicin A DAY A DAY MOUTH e TWICE A DAY prednisone prednisone No prednisone Melanie 20 mg 20 mg 20 mg [facility] tablet TAKE tablet TAKE tablet dic 3 TABLETS 3 TABLETS TAKE 3 Spo rts BY MOUTH BY MOUTH TABLETS BY Rajesh valdez EVERY DAY EVERY DAY MOUTH e X3 DAYS, 2 X3 DAYS, 2 EVERY DAY TABS EVERY TABS EVERY X3 DAYS, 2 DAY X3 DAY X3 TABS EVERY DAYS, 1 TAB DAYS, 1 TAB DAY X3 EVERY DAY EVERY DAY DAYS, 1 X3 DAYS X3 DAYS TAB EVERY DAY X3 DAYS prednisone prednisone No prednisone Melanie 5 mg tablet 5 mg tablet 5 mg [facility] TAKE 1 TAKE 1 tablet dic TABLET BY TABLET BY TAKE 1 Spo rts MOUTH EVERY MOUTH EVERY TABLET BY Medicin DAY DAY MOUTH e EVERY DAY promethazin promethazin No promethazi Melanie e-DM 6.25 e-DM 6.25 ne-DM 6.25 [facility] mg-15 mg/5 mg-15 mg/5 mg-15 mg/5 dic mL oral mL oral mL oral [facility] syrup TAKE syrup TAKE syrup TAKE Medicin BY MOUTH BY MOUTH BY MOUTH e 5ML EVERY 6 5ML EVERY 6 5ML EVERY HOURS HOURS 6 HOURS NEEDED FOR NEEDED FOR NEEDED FOR COUGH COUGH COUGH sucralfate sucralfate No sucralfate Melanie 1 gram 1 gram 1 gram [facility] tablet TAKE tablet TAKE tablet dic 1 TABLET BY 1 TABLET BY TAKE 1 Sports MOUTH EVERY MOUTH EVERY TABLET BY Medicin DAY DAY MOUTH e NEEDED NEEDED EVERY DAY NEEDED atorvastati atorvastati No atorvastat Melanie n 40 mg n 40 mg in 40 mg [facility] pe tablet TAKE tablet TAKE tablet dic 1 TABLET BY 1 TABLET BY TAKE 1 Sports MOUTH EVERY MOUTH EVERY TABLET BY Medicin DAY DAY MOUTH e EVERY DAY baclofen 20 baclofen 20 No baclofen Melanie mg tablet mg tablet 20 mg [facility] TAKE 1 TAKE 1 tablet dic TABLET BY TABLET BY TAKE 1 Spo rts MOUTH TWICE MOUTH TWICE TABLET BY Medicin A DAY A DAY MOUTH e NEEDED FOR NEEDED FOR TWICE A MUSCLE MUSCLE DAY SPASM SPASM NEEDED FOR MUSCLE SPASM acetaminoph acetaminoph No acetaminop Melanie en 300 en 300 hen 300 [facility] mg-codeine mg-codeine mg-codeine dic 60 mg 60 mg 60 mg [facility] tablet TAKE tablet TAKE tablet [facility] 1 TABLET BY 1 TABLET BY TAKE 1 e MOUTH TWICE MOUTH TWICE TABLET BY A DAY A DAY MOUTH TWICE A DAY aspirin 81 aspirin 81 No 1 Q1D aspirin 81 Melanie mg mg mg [facility] tablet,maged tablet,maged tablet,del dic yed release yed release ayed S ports Take 1 Take 1 release [facility] tablet tablet Take 1 e every day every day tablet by oral by oral every day route. route. by oral route. atorvastati atorvastati No atorvastat Melanie n 40 mg n 40 mg in 40 mg [facility] pe tablet TAKE tablet TAKE tablet dic 1 TABLET BY 1 TABLET BY TAKE 1 Sports MOUTH EVERY MOUTH EVERY TABLET BY Medicin DAY DAY MOUTH e EVERY DAY baclofen 20 baclofen 20 No baclofen Melanie mg tablet mg tablet 20 mg [facility] TAKE 1 TAKE 1 tablet dic TABLET BY TABLET BY TAKE 1 Spo rts MOUTH TWICE MOUTH TWICE TABLET BY Medicin A DAY A DAY MOUTH e NEEDED FOR NEEDED FOR TWICE A MUSCLE MUSCLE DAY SPASM SPASM NEEDED FOR MUSCLE SPASM benzonatate benzonatate No benzonatat Melanie 100 mg 100 mg e 100 mg [facility] capsule capsule capsule dic TAKE 1 TAKE 1 TAKE 1 Sports CAPSULE BY CAPSULE BY CAPSULE BY [facility] MOUTH THREE MOUTH THREE MOUTH e TIMES A DAY TIMES A DAY THREE NEEDED NEEDED TIMES A FOR 14 DAYS FOR 14 DAYS DAY NEEDED FOR 14 DAYS carbidopa carbidopa No carbidopa Melanie 25 25 25 [facility] mg-levodopa mg-levodopa mg-levodop dic 100 mg 100 mg a 100 mg [facility] tablet TAKE tablet TAKE tablet [facility] 1 TABLET BY 1 TABLET BY TAKE 1 e MOUTH TWICE MOUTH TWICE TABLET BY A DAY A DAY MOUTH TWICE A DAY cefdinir cefdinir No cefdinir Aza william 300 mg 300 mg 300 mg [facility] capsule capsule capsule dic TAKE 1 TAKE 1 TAKE 1 Sports CAPSULE BY CAPSULE BY CAPSULE BY [facility] MOUTH TWICE MOUTH TWICE MOUTH e A DAY A DAY TWICE A DAY famotidine famotidine No famotidine Melanie 40 mg 40 mg 40 mg [facility] tablet TAKE tablet TAKE tablet dic 1 TABLET BY 1 TABLET BY TAKE 1 Sports MOUTH MOUTH TABLET BY [facility] EVERYDAY AT EVERYDAY AT MOUTH e BEDTIME BEDTIME EVERYDAY AT BEDTIME Flovent HFA Flovent HFA No Flovent Melanie 110 110 HFA 110 [facility] mcg/actuati mcg/actuati mcg/actuat dic on aerosol on aerosol ion Spo rts inhaler inhaler aerosol Medici n INHALE 2 INHALE 2 inhaler e PUFFS INTO PUFFS INTO INHALE 2 THE LUNGS THE LUNGS PUFFS INTO TWICE A DAY TWICE A DAY THE LUNGS FOR 30 DAYS FOR 30 DAYS TWICE A DAY FOR 30 DAYS gabapentin gabapentin No gabapentin Melanie 100 mg 100 mg 100 mg [facility] capsule capsule capsule dic TAKE 1 TAKE 1 TAKE 1 Sports CAPSULE BY CAPSULE BY CAPSULE BY [facility] MOUTH THREE MOUTH THREE MOUTH e TIMES A DAY TIMES A DAY THREE TIMES A DAY benzonatate benzonatate No benzonatat Melanie 100 mg 100 mg e 100 mg [facility] capsule capsule capsule dic TAKE 1 TAKE 1 TAKE 1 Sports CAPSULE BY CAPSULE BY CAPSULE BY [facility] MOUTH THREE MOUTH THREE MOUTH e TIMES A DAY TIMES A DAY THREE NEEDED NEEDED TIMES A FOR 14 DAYS FOR 14 DAYS DAY NEEDED FOR 14 DAYS gabapentin gabapentin No gabapentin Melanie 300 mg 300 mg 300 mg [facility] capsule capsule capsule dic TAKE 1 TAKE 1 TAKE 1 Sports CAPSULE BY CAPSULE BY CAPSULE BY [facility] MOUTH TWICE MOUTH TWICE MOUTH e A DAY. A DAY. TWICE A DAY. hydroxychlo hydroxychlo No hydroxychl Melanie roquine 200 roquine 200 oroquine [facility] mg tablet mg tablet 200 mg dic TAKE 1 TAKE 1 tablet Sports TABLET (200 TABLET (200 TAKE 1 [facility] MG) BY MG) BY TABLET e MOUTH TWICE MOUTH TWICE (200 MG) A DAY A DAY BY MOUTH TWICE A DAY ibuprofen ibuprofen No ibuprofen Melanie 800 mg 800 mg 800 mg [facility] tablet TAKE tablet TAKE tablet dic 1 TABLET BY 1 TABLET BY TAKE 1 Sports MOUTH 3 MOUTH 3 TABLET BY Medi marie TIMES A DAY TIMES A DAY MOUTH 3 e TIMES A DAY levofloxaci levofloxaci No levofloxac Melanie n 500 mg n 500 mg in 500 mg [facility] tablet TAKE tablet TAKE tablet dic 1 TABLET BY 1 TABLET BY TAKE 1 Sports MOUTH EVERY MOUTH EVERY TABLET BY [facility] DAY DAY MOUTH e EVERY DAY mirtazapine mirtazapine No mirtazapin Melanie 7.5 mg 7.5 mg e 7.5 mg [facility] tablet TAKE tablet TAKE tablet dic 1 TABLET BY 1 TABLET BY TAKE 1 Sports MOUTH AT MOUTH AT TABLET BY La dicin BEDTIME BEDTIME MOUTH AT e BEDTIME montelukast montelukast No montelukas Melanie 10 mg 10 mg t 10 mg [facility] tablet TAKE tablet TAKE tablet dic 1 TABLET BY 1 TABLET BY TAKE 1 Sports MOUTH EVERY MOUTH EVERY TABLET BY [facility] DAY DAY MOUTH e EVERY DAY pantoprazol pantoprazol No pantoprazo Melanie e 40 mg e 40 mg le 40 mg [facility] pe tablet,maged tablet,maged tablet,del dic yed release yed release ayed S ports TAKE 1 TAKE 1 release [facility] TABLET BY TABLET BY TAKE 1 e MOUTH EVERY MOUTH EVERY TABLET BY DAY IN THE DAY IN THE MOUTH MORNING MORNING EVERY DAY IN THE MORNING Paxlovid Paxlovid No Paxlovid Aza william 300 mg (150 300 mg (150 300 mg [facility] mg x 2)-100 mg x 2)-100 (150 mg x dic mg tablets mg tablets 2)-100 mg [facility] in a dose in a dose tablets in [facility] pack (EUA) pack (EUA) a dose e TAKE 3 TAKE 3 pack (EUA) TABLETS BY TABLETS BY TAKE 3 MOUTH TWICE MOUTH TWICE TABLETS BY A DAY FOR 5 A DAY FOR 5 MOUTH DAYS DAYS TWICE A DAY FOR 5 DAYS prednisolon prednisolon No prednisolo Melanie e acetate 1 e acetate 1 ne acetate [facility] % eye % eye 1 % eye dic drops,suspe drops,suspe drops,susp Sports nsion nsion ension [facility] INSTILL 1 INSTILL 1 INSTILL 1 e DROP INTO DROP INTO DROP INTO LEFT EYE 4 LEFT EYE 4 LEFT EYE 4 TIMES A DAY TIMES A DAY TIMES A DAY prednisone prednisone No prednisone Melanie 20 mg 20 mg 20 mg [facility] tablet TAKE tablet TAKE tablet dic 3 TABLETS 3 TABLETS TAKE 3 Spo rts BY MOUTH BY MOUTH TABLETS BY M lamonticin EVERY DAY EVERY DAY MOUTH e X3 DAYS, 2 X3 DAYS, 2 EVERY DAY TABS EVERY TABS EVERY X3 DAYS, 2 DAY X3 DAY X3 TABS EVERY DAYS, 1 TAB DAYS, 1 TAB DAY X3 EVERY DAY EVERY DAY DAYS, 1 X3 DAYS X3 DAYS TAB EVERY DAY X3 DAYS carbidopa carbidopa No carbidopa Melnaie 25 25 25 [facility] mg-levodopa mg-levodopa mg-levodop dic 100 mg 100 mg a 100 mg [facility] tablet TAKE tablet TAKE tablet [facility] 1 TABLET BY 1 TABLET BY TAKE 1 e MOUTH TWICE MOUTH TWICE TABLET BY A DAY A DAY MOUTH TWICE A DAY prednisone prednisone No prednisone Melanie 5 mg tablet 5 mg tablet 5 mg [facility] TAKE 1 TAKE 1 tablet dic TABLET BY TABLET BY TAKE 1 Spo rts MOUTH EVERY MOUTH EVERY TABLET BY [facility] DAY DAY MOUTH e EVERY DAY promethazin promethazin No promethazi Melanie e-DM 6.25 e-DM 6.25 ne-DM 6.25 [facility] mg-15 mg/5 mg-15 mg/5 mg-15 mg/5 dic mL oral mL oral mL oral [facility] syrup TAKE syrup TAKE syrup TAKE [facility] BY MOUTH BY MOUTH BY MOUTH e 5ML EVERY 6 5ML EVERY 6 5ML EVERY HOURS HOURS 6 HOURS NEEDED FOR NEEDED FOR NEEDED FOR COUGH COUGH COUGH sucralfate sucralfate No sucralfate Melanie 1 gram 1 gram 1 gram [facility] tablet TAKE tablet TAKE tablet dic 1 TABLET BY 1 TABLET BY TAKE 1 Sports MOUTH EVERY MOUTH EVERY TABLET BY [facility] DAY DAY MOUTH e NEEDED NEEDED EVERY DAY NEEDED tizanidine tizanidine No 1capsul Q8H tizanidine Melanie 4 mg 4 mg e(s) 4 mg [facility] capsule capsule capsule dic Take 1 Take 1 Take 1 [facility] capsule capsule capsule [facility] n every 8 every 8 every 8 e hours by hours by hours by oral route oral route oral route as needed as needed as needed for 30 for 30 for 30 days. days. days. acetaminoph acetaminoph No acetaminop Melanie en 300 en 300 hen 300 [facility] mg-codeine mg-codeine mg-codeine dic 60 mg 60 mg 60 mg [facility] tablet TAKE tablet TAKE tablet [facility] 1 TABLET BY 1 TABLET BY TAKE 1 e MOUTH TWICE MOUTH TWICE TABLET BY A DAY A DAY MOUTH TWICE A DAY cefdinir cefdinir No cefdinir Aza william 300 mg 300 mg 300 mg [facility] capsule capsule capsule dic TAKE 1 TAKE 1 TAKE 1 Sports CAPSULE BY CAPSULE BY CAPSULE BY [facility] MOUTH TWICE MOUTH TWICE MOUTH e A DAY A DAY TWICE A DAY aspirin 81 aspirin 81 No 1 Q1D aspirin 81 Melanie mg mg mg [facility] tablet,maged tablet,maged tablet,del dic yed release yed release ayed S ports Take 1 Take 1 release [facility] tablet tablet Take 1 e every day every day tablet by oral by oral every day route. route. by oral route. atorvastati atorvastati No atorvastat Melanie n 40 mg n 40 mg in 40 mg [facility] pe tablet TAKE tablet TAKE tablet dic 1 TABLET BY 1 TABLET BY TAKE 1 Sports MOUTH EVERY MOUTH EVERY TABLET BY [facility] DAY DAY MOUTH e EVERY DAY baclofen 20 baclofen 20 No baclofen Melanie mg tablet mg tablet 20 mg [facility] TAKE 1 TAKE 1 tablet dic TABLET BY TABLET BY TAKE 1 Spo rts MOUTH TWICE MOUTH TWICE TABLET BY Medic[facility] A DAY A DAY MOUTH e NEEDED FOR NEEDED FOR TWICE A MUSCLE MUSCLE DAY SPASM SPASM NEEDED FOR MUSCLE SPASM benzonatate benzonatate No benzonatat Melanie 100 mg 100 mg e 100 mg [facility] capsule capsule capsule dic TAKE 1 TAKE 1 TAKE 1 Sports CAPSULE BY CAPSULE BY CAPSULE BY [facility] MOUTH THREE MOUTH THREE MOUTH e TIMES A DAY TIMES A DAY THREE NEEDED NEEDED TIMES A FOR 14 DAYS FOR 14 DAYS DAY NEEDED FOR 14 DAYS carbidopa carbidopa No carbidopa Melanie 25 25 25 [facility] mg-levodopa mg-levodopa mg-levodop dic 100 mg 100 mg a 100 mg [facility] tablet TAKE tablet TAKE tablet [facility] 1 TABLET BY 1 TABLET BY TAKE 1 e MOUTH TWICE MOUTH TWICE TABLET BY A DAY A DAY MOUTH TWICE A DAY cefdinir cefdinir No cefdinir Aza william 300 mg 300 mg 300 mg [facility] capsule capsule capsule dic TAKE 1 TAKE 1 TAKE 1 Sports CAPSULE BY CAPSULE BY CAPSULE BY [facility] MOUTH TWICE MOUTH TWICE MOUTH e A DAY A DAY TWICE A DAY famotidine famotidine No famotidine Melanie 40 mg 40 mg 40 mg [facility] tablet TAKE tablet TAKE tablet dic 1 TABLET BY 1 TABLET BY TAKE 1 Sports MOUTH MOUTH TABLET BY [facility] EVERYDAY AT EVERYDAY AT MOUTH e BEDTIME BEDTIME EVERYDAY AT BEDTIME Flovent HFA Flovent HFA No Flovent Melanie 110 110 HFA 110 [facility] mcg/actuati mcg/actuati mcg/actuat dic on aerosol on aerosol ion Spo rts inhaler inhaler aerosol [facility] n INHALE 2 INHALE 2 inhaler e PUFFS INTO PUFFS INTO INHALE 2 THE LUNGS THE LUNGS PUFFS INTO TWICE A DAY TWICE A DAY THE LUNGS FOR 30 DAYS FOR 30 DAYS TWICE A DAY FOR 30 DAYS gabapentin gabapentin No gabapentin Melanie 100 mg 100 mg 100 mg [facility] capsule capsule capsule dic TAKE 1 TAKE 1 TAKE 1 Sports CAPSULE BY CAPSULE BY CAPSULE BY [facility] MOUTH THREE MOUTH THREE MOUTH e TIMES A DAY TIMES A DAY THREE TIMES A DAY gabapentin gabapentin No gabapentin Melanie 300 mg 300 mg 300 mg [facility] capsule capsule capsule dic TAKE 1 TAKE 1 TAKE 1 Sports CAPSULE BY CAPSULE BY CAPSULE BY [facility] MOUTH TWICE MOUTH TWICE MOUTH e A DAY. A DAY. TWICE A DAY. famotidine famotidine No famotidine Melanie 40 mg 40 mg 40 mg [facility] tablet TAKE tablet TAKE tablet dic 1 TABLET BY 1 TABLET BY TAKE 1 Sports MOUTH MOUTH TABLET BY [facility] EVERYDAY AT EVERYDAY AT MOUTH e BEDTIME BEDTIME EVERYDAY AT BEDTIME hydroxychlo hydroxychlo No hydroxychl Melanie roquine 200 roquine 200 oroquine [facility] mg tablet mg tablet 200 mg dic TAKE 1 TAKE 1 tablet Sports TABLET (200 TABLET (200 TAKE 1 [facility] MG) BY MG) BY TABLET e MOUTH TWICE MOUTH TWICE (200 MG) A DAY A DAY BY MOUTH TWICE A DAY ibuprofen ibuprofen No ibuprofen Melanie 800 mg 800 mg 800 mg [facility] tablet TAKE tablet TAKE tablet dic 1 TABLET BY 1 TABLET BY TAKE 1 Sports MOUTH 3 MOUTH 3 TABLET BY Medi marie TIMES A DAY TIMES A DAY MOUTH 3 e TIMES A DAY levofloxaci levofloxaci No levofloxac Melanie n 500 mg n 500 mg in 500 mg Or [facility] tablet TAKE tablet TAKE tablet dic 1 TABLET BY 1 TABLET BY TAKE 1 Sports MOUTH EVERY MOUTH EVERY TABLET BY [facility] DAY DAY MOUTH e EVERY DAY mirtazapine mirtazapine No mirtazapin Melanie 7.5 mg 7.5 mg e 7.5 mg [facility] tablet TAKE tablet TAKE tablet dic 1 TABLET BY 1 TABLET BY TAKE 1 Sports MOUTH AT MOUTH AT TABLET BY [facility] dicin BEDTIME BEDTIME MOUTH AT e BEDTIME montelukast montelukast No montelukas Melanie 10 mg 10 mg t 10 mg [facility] tablet TAKE tablet TAKE tablet dic 1 TABLET BY 1 TABLET BY TAKE 1 Sports MOUTH EVERY MOUTH EVERY TABLET BY [facility] DAY DAY MOUTH e EVERY DAY pantoprazol pantoprazol No pantoprazo Melanie e 40 mg e 40 mg le 40 mg [facility] pe tablet,maged tablet,maged tablet,del dic yed release yed release ayed S ports TAKE 1 TAKE 1 release [facility] TABLET BY TABLET BY TAKE 1 e MOUTH EVERY MOUTH EVERY TABLET BY DAY IN THE DAY IN THE MOUTH MORNING MORNING EVERY DAY IN THE MORNING Paxlovid Paxlovid No Paxlovid Aza william 300 mg (150 300 mg (150 300 mg [facility] mg x 2)-100 mg x 2)-100 (150 mg x dic mg tablets mg tablets 2)-100 mg [facility] in a dose in a dose tablets in [facility] pack (EUA) pack (EUA) a dose e TAKE 3 TAKE 3 pack (EUA) TABLETS BY TABLETS BY TAKE 3 MOUTH TWICE MOUTH TWICE TABLETS BY A DAY FOR 5 A DAY FOR 5 MOUTH DAYS DAYS TWICE A DAY FOR 5 DAYS prednisolon prednisolon No prednisolo Melanie e acetate 1 e acetate 1 ne acetate [facility] % eye % eye 1 % eye dic drops,suspe drops,suspe drops,susp Sports nsion nsion ension [facility] INSTILL 1 INSTILL 1 INSTILL 1 e DROP INTO DROP INTO DROP INTO LEFT EYE 4 LEFT EYE 4 LEFT EYE 4 TIMES A DAY TIMES A DAY TIMES A DAY prednisone prednisone No prednisone Melanie 20 mg 20 mg 20 mg [facility] tablet TAKE tablet TAKE tablet dic 3 TABLETS 3 TABLETS TAKE 3 Spo rts BY MOUTH BY MOUTH TABLETS BY Rajesh valdez EVERY DAY EVERY DAY MOUTH e X3 DAYS, 2 X3 DAYS, 2 EVERY DAY TABS EVERY TABS EVERY X3 DAYS, 2 DAY X3 DAY X3 TABS EVERY DAYS, 1 TAB DAYS, 1 TAB DAY X3 EVERY DAY EVERY DAY DAYS, 1 X3 DAYS X3 DAYS TAB EVERY DAY X3 DAYS prednisone prednisone No prednisone Melanie 5 mg tablet 5 mg tablet 5 mg [facility] TAKE 1 TAKE 1 tablet dic TABLET BY TABLET BY TAKE 1 Spo rts MOUTH EVERY MOUTH EVERY TABLET BY [facility] DAY DAY MOUTH e EVERY DAY Flovent HFA Flovent HFA No Flovent Melanie 110 110 HFA 110 [facility] mcg/actuati mcg/actuati mcg/actuat dic on aerosol on aerosol ion Spo rts inhaler inhaler aerosol [facility] n INHALE 2 INHALE 2 inhaler e PUFFS INTO PUFFS INTO INHALE 2 THE LUNGS THE LUNGS PUFFS INTO TWICE A DAY TWICE A DAY THE LUNGS FOR 30 DAYS FOR 30 DAYS TWICE A DAY FOR 30 DAYS promethazin promethazin No promethazi Melanie e-DM 6.25 e-DM 6.25 ne-DM 6.25 [facility] mg-15 mg/5 mg-15 mg/5 mg-15 mg/5 dic mL oral mL oral mL oral [facility] syrup TAKE syrup TAKE syrup TAKE [facility] BY MOUTH BY MOUTH BY MOUTH e 5ML EVERY 6 5ML EVERY 6 5ML EVERY HOURS HOURS 6 HOURS NEEDED FOR NEEDED FOR NEEDED FOR COUGH COUGH COUGH sucralfate sucralfate No sucralfate Melanie 1 gram 1 gram 1 gram [facility] tablet TAKE tablet TAKE tablet dic 1 TABLET BY 1 TABLET BY TAKE 1 Sports MOUTH EVERY MOUTH EVERY TABLET BY [facility] DAY DAY MOUTH e NEEDED NEEDED EVERY DAY NEEDED tizanidine tizanidine No 1capsul Q8H tizanidine Melanie 4 mg 4 mg e(s) 4 mg [facility] capsule capsule capsule dic Take 1 Take 1 Take 1 [facility] capsule capsule capsule [facility] n every 8 every 8 every 8 e hours by hours by hours by oral route oral route oral route as needed as needed as needed for 30 for 30 for 30 days. days. days. gabapentin gabapentin No gabapentin Melanie 100 mg 100 mg 100 mg [facility] capsule capsule capsule dic TAKE 1 TAKE 1 TAKE 1 Sports CAPSULE BY CAPSULE BY CAPSULE BY [facility] MOUTH THREE MOUTH THREE MOUTH e TIMES A DAY TIMES A DAY THREE TIMES A DAY gabapentin gabapentin No gabapentin Melanie 300 mg 300 mg 300 mg [facility] capsule capsule capsule dic TAKE 1 TAKE 1 TAKE 1 Sports CAPSULE BY CAPSULE BY CAPSULE BY [facility] MOUTH TWICE MOUTH TWICE MOUTH e A DAY. A DAY. TWICE A DAY. hydroxychlo hydroxychlo No hydroxychl Melanie roquine 200 roquine 200 oroquine [facility] mg tablet mg tablet 200 mg dic TAKE 1 TAKE 1 tablet Sports TABLET (200 TABLET (200 TAKE 1 [facility] MG) BY MG) BY TABLET e MOUTH TWICE MOUTH TWICE (200 MG) A DAY A DAY BY MOUTH TWICE A DAY ibuprofen ibuprofen No ibuprofen Melanie 800 mg 800 mg 800 mg [facility] tablet TAKE tablet TAKE tablet dic 1 TABLET BY 1 TABLET BY TAKE 1 Sports MOUTH 3 MOUTH 3 TABLET BY Medi marie TIMES A DAY TIMES A DAY MOUTH 3 e TIMES A DAY levofloxaci levofloxaci No levofloxac Melanie n 500 mg n 500 mg in 500 mg Or [facility] tablet TAKE tablet TAKE tablet dic 1 TABLET BY 1 TABLET BY TAKE 1 Sports MOUTH EVERY MOUTH EVERY TABLET BY [facility] DAY DAY MOUTH e EVERY DAY mirtazapine mirtazapine No mirtazapin Melanie 7.5 mg 7.5 mg e 7.5 mg [facility] tablet TAKE tablet TAKE tablet dic 1 TABLET BY 1 TABLET BY TAKE 1 Sports MOUTH AT MOUTH AT TABLET BY Me dicin BEDTIME BEDTIME MOUTH AT e BEDTIME montelukast montelukast No montelukas Melanie 10 mg 10 mg t 10 mg [facility] tablet TAKE tablet TAKE tablet dic 1 TABLET BY 1 TABLET BY TAKE 1 Sports MOUTH EVERY MOUTH EVERY TABLET BY [facility] DAY DAY MOUTH e EVERY DAY pantoprazol pantoprazol No pantoprazo Melanie e 40 mg e 40 mg le 40 mg [facility] pe tablet,maged tablet,maged tablet,del dic yed release yed release ayed S ports TAKE 1 TAKE 1 release [facility] TABLET BY TABLET BY TAKE 1 e MOUTH EVERY MOUTH EVERY TABLET BY DAY IN THE DAY IN THE MOUTH MORNING MORNING EVERY DAY IN THE MORNING Paxlovid Paxlovid No Paxlovid Aza william 300 mg (150 300 mg (150 300 mg [facility] mg x 2)-100 mg x 2)-100 (150 mg x dic mg tablets mg tablets 2)-100 mg [facility] in a dose in a dose tablets in [facility] pack (EUA) pack (EUA) a dose e TAKE 3 TAKE 3 pack (EUA) TABLETS BY TABLETS BY TAKE 3 MOUTH TWICE MOUTH TWICE TABLETS BY A DAY FOR 5 A DAY FOR 5 MOUTH DAYS DAYS TWICE A DAY FOR 5 DAYS prednisolon prednisolon No prednisolo Melanie e acetate 1 e acetate 1 ne acetate [facility] % eye % eye 1 % eye dic drops,suspe drops,suspe drops,susp Sports nsion nsion ension [facility] INSTILL 1 INSTILL 1 INSTILL 1 e DROP INTO DROP INTO DROP INTO LEFT EYE 4 LEFT EYE 4 LEFT EYE 4 TIMES A DAY TIMES A DAY TIMES A DAY prednisone prednisone No prednisone Melanie 20 mg 20 mg 20 mg [facility] tablet TAKE tablet TAKE tablet dic 3 TABLETS 3 TABLETS TAKE 3 Spo rts BY MOUTH BY MOUTH TABLETS BY M edicin EVERY DAY EVERY DAY MOUTH e X3 DAYS, 2 X3 DAYS, 2 EVERY DAY TABS EVERY TABS EVERY X3 DAYS, 2 DAY X3 DAY X3 TABS EVERY DAYS, 1 TAB DAYS, 1 TAB DAY X3 EVERY DAY EVERY DAY DAYS, 1 X3 DAYS X3 DAYS TAB EVERY DAY X3 DAYS prednisone prednisone No prednisone Melanie 5 mg tablet 5 mg tablet 5 mg [facility] TAKE 1 TAKE 1 tablet dic TABLET BY TABLET BY TAKE 1 Spo rts MOUTH EVERY MOUTH EVERY TABLET BY [facility] DAY DAY MOUTH e EVERY DAY promethazin promethazin No promethazi Melanie e-DM 6.25 e-DM 6.25 ne-DM 6.25 [facility] mg-15 mg/5 mg-15 mg/5 mg-15 mg/5 dic mL oral mL oral mL oral [facility] syrup TAKE syrup TAKE syrup TAKE [facility] BY MOUTH BY MOUTH BY MOUTH e 5ML EVERY 6 5ML EVERY 6 5ML EVERY HOURS HOURS 6 HOURS NEEDED FOR NEEDED FOR NEEDED FOR COUGH COUGH COUGH sucralfate sucralfate No sucralfate Melanie 1 gram 1 gram 1 gram [facility] tablet TAKE tablet TAKE tablet dic 1 TABLET BY 1 TABLET BY TAKE 1 Sports MOUTH EVERY MOUTH EVERY TABLET BY [facility] DAY DAY MOUTH e NEEDED NEEDED EVERY DAY NEEDED acetaminoph acetaminoph No acetaminop Melanie en 300 en 300 hen 300 [facility] mg-codeine mg-codeine mg-codeine dic 60 mg 60 mg 60 mg [facility] tablet TAKE tablet TAKE tablet [facility] 1 TABLET BY 1 TABLET BY TAKE 1 e MOUTH TWICE MOUTH TWICE TABLET BY A DAY A DAY MOUTH TWICE A DAY aspirin 81 aspirin 81 No 1 Q1D aspirin 81 Melanie mg mg mg [facility] tablet,maged tablet,maged tablet,del dic yed release yed release ayed S ports Take 1 Take 1 release [facility] tablet tablet Take 1 e every day every day tablet by oral by oral every day route. route. by oral route. atorvastati atorvastati No atorvastat Melanie n 40 mg n 40 mg in 40 mg [facility] pe tablet TAKE tablet TAKE tablet dic 1 TABLET BY 1 TABLET BY TAKE 1 Sports MOUTH EVERY MOUTH EVERY TABLET BY [facility] DAY DAY MOUTH e EVERY DAY baclofen 20 baclofen 20 No baclofen Melanie mg tablet mg tablet 20 mg [facility] TAKE 1 TAKE 1 tablet dic TABLET BY TABLET BY TAKE 1 Spo rts MOUTH TWICE MOUTH TWICE TABLET BY [facility] A DAY A DAY MOUTH e NEEDED FOR NEEDED FOR TWICE A MUSCLE MUSCLE DAY SPASM SPASM NEEDED FOR MUSCLE SPASM benzonatate benzonatate No benzonatat Melanie 100 mg 100 mg e 100 mg [facility] capsule capsule capsule dic TAKE 1 TAKE 1 TAKE 1 Sports CAPSULE BY CAPSULE BY CAPSULE BY [facility] MOUTH THREE MOUTH THREE MOUTH e TIMES A DAY TIMES A DAY THREE NEEDED NEEDED TIMES A FOR 14 DAYS FOR 14 DAYS DAY NEEDED FOR 14 DAYS carbidopa carbidopa No carbidopa Melanie 25 25 25 [facility] mg-levodopa mg-levodopa mg-levodop dic 100 mg 100 mg a 100 mg [facility] tablet TAKE tablet TAKE tablet [facility] 1 TABLET BY 1 TABLET BY TAKE 1 e MOUTH TWICE MOUTH TWICE TABLET BY A DAY A DAY MOUTH TWICE A DAY cefdinir cefdinir No cefdinir Aza william 300 mg 300 mg 300 mg [facility] capsule capsule capsule dic TAKE 1 TAKE 1 TAKE 1 Sports CAPSULE BY CAPSULE BY CAPSULE BY [facility] MOUTH TWICE MOUTH TWICE MOUTH e A DAY A DAY TWICE A DAY famotidine famotidine No famotidine Melanie 40 mg 40 mg 40 mg [facility] tablet TAKE tablet TAKE tablet dic 1 TABLET BY 1 TABLET BY TAKE 1 Sports MOUTH MOUTH TABLET BY [facility] EVERYDAY AT EVERYDAY AT MOUTH e BEDTIME BEDTIME EVERYDAY AT BEDTIME Flovent HFA Flovent HFA No Flovent Melanie 110 110 HFA 110 [facility] mcg/actuati mcg/actuati mcg/actuat dic on aerosol on aerosol ion Spo rts inhaler inhaler aerosol [facility] n INHALE 2 INHALE 2 inhaler e PUFFS INTO PUFFS INTO INHALE 2 THE LUNGS THE LUNGS PUFFS INTO TWICE A DAY TWICE A DAY THE LUNGS FOR 30 DAYS FOR 30 DAYS TWICE A DAY FOR 30 DAYS gabapentin gabapentin No gabapentin Melanie 100 mg 100 mg 100 mg [facility] capsule capsule capsule dic TAKE 1 TAKE 1 TAKE 1 Sports CAPSULE BY CAPSULE BY CAPSULE BY [facility] MOUTH THREE MOUTH THREE MOUTH e TIMES A DAY TIMES A DAY THREE TIMES A DAY gabapentin gabapentin No gabapentin Melanie 300 mg 300 mg 300 mg [facility] capsule capsule capsule dic TAKE 1 TAKE 1 TAKE 1 Sports CAPSULE BY CAPSULE BY CAPSULE BY [facility] MOUTH TWICE MOUTH TWICE MOUTH e A DAY. A DAY. TWICE A DAY. hydroxychlo hydroxychlo No hydroxychl Melanie roquine 200 roquine 200 oroquine [facility] mg tablet mg tablet 200 mg dic TAKE 1 TAKE 1 tablet Sports TABLET (200 TABLET (200 TAKE 1 [facility] MG) BY MG) BY TABLET e MOUTH TWICE MOUTH TWICE (200 MG) A DAY A DAY BY MOUTH TWICE A DAY ibuprofen ibuprofen No ibuprofen Melanie 800 mg 800 mg 800 mg [facility] tablet TAKE tablet TAKE tablet dic 1 TABLET BY 1 TABLET BY TAKE 1 Sports MOUTH 3 MOUTH 3 TABLET BY Medi marie TIMES A DAY TIMES A DAY MOUTH 3 e TIMES A DAY levofloxaci levofloxaci No levofloxac Melanie n 500 mg n 500 mg in 500 mg Or [facility]ope tablet TAKE tablet TAKE tablet dic 1 TABLET BY 1 TABLET BY TAKE 1 Sports MOUTH EVERY MOUTH EVERY TABLET BY [facility] DAY DAY MOUTH e EVERY DAY mirtazapine mirtazapine No mirtazapin Melanie 7.5 mg 7.5 mg e 7.5 mg [facility] tablet TAKE tablet TAKE tablet dic 1 TABLET BY 1 TABLET BY TAKE 1 Sports MOUTH AT MOUTH AT TABLET BY [facility]icin BEDTIME BEDTIME MOUTH AT e BEDTIME montelukast montelukast No montelukas Melanie 10 mg 10 mg t 10 mg [facility] tablet TAKE tablet TAKE tablet dic 1 TABLET BY 1 TABLET BY TAKE 1 Sports MOUTH EVERY MOUTH EVERY TABLET BY [facility] DAY DAY MOUTH e EVERY DAY pantoprazol pantoprazol No pantoprazo Melanie e 40 mg e 40 mg le 40 mg [facility] pe tablet,maged tablet,maged tablet,del dic yed release yed release ayed S ports TAKE 1 TAKE 1 release [facility] TABLET BY TABLET BY TAKE 1 e MOUTH EVERY MOUTH EVERY TABLET BY DAY IN THE DAY IN THE MOUTH MORNING MORNING EVERY DAY IN THE MORNING Paxlovid Paxlovid No Paxlovid Aza william 300 mg (150 300 mg (150 300 mg [facility] mg x 2)-100 mg x 2)-100 (150 mg x dic mg tablets mg tablets 2)-100 mg Sports in a dose in a dose tablets in Medicin pack (EUA) pack (EUA) a dose e TAKE 3 TAKE 3 pack (EUA) TABLETS BY TABLETS BY TAKE 3 MOUTH TWICE MOUTH TWICE TABLETS BY A DAY FOR 5 A DAY FOR 5 MOUTH DAYS DAYS TWICE A DAY FOR 5 DAYS prednisolon prednisolon No prednisolo Melanie e acetate 1 e acetate 1 ne acetate Orthope % eye % eye 1 % eye dic drops,suspe drops,suspe drops,susp Sports nsion nsion ension Medicin INSTILL 1 INSTILL 1 INSTILL 1 e DROP INTO DROP INTO DROP INTO LEFT EYE 4 LEFT EYE 4 LEFT EYE 4 TIMES A DAY TIMES A DAY TIMES A DAY prednisone prednisone No prednisone Melanie 20 mg 20 mg 20 mg [facility] tablet TAKE tablet TAKE tablet dic 3 TABLETS 3 TABLETS TAKE 3 Spo rts BY MOUTH BY MOUTH TABLETS BY Rajesh valdez EVERY DAY EVERY DAY MOUTH e X3 DAYS, 2 X3 DAYS, 2 EVERY DAY TABS EVERY TABS EVERY X3 DAYS, 2 DAY X3 DAY X3 TABS EVERY DAYS, 1 TAB DAYS, 1 TAB DAY X3 EVERY DAY EVERY DAY DAYS, 1 X3 DAYS X3 DAYS TAB EVERY DAY X3 DAYS prednisone prednisone No prednisone Melanie 5 mg tablet 5 mg tablet 5 mg O rthope TAKE 1 TAKE 1 tablet dic TABLET BY TABLET BY TAKE 1 Spo rts MOUTH EVERY MOUTH EVERY TABLET BY Medicin DAY DAY MOUTH e EVERY DAY promethazin promethazin No promethazi Melanie e-DM 6.25 e-DM 6.25 ne-DM 6.25 [facility] mg-15 mg/5 mg-15 mg/5 mg-15 mg/5 dic mL oral mL oral mL oral Sports syrup TAKE syrup TAKE syrup TAKE Medicin BY MOUTH BY MOUTH BY MOUTH e 5ML EVERY 6 5ML EVERY 6 5ML EVERY HOURS HOURS 6 HOURS NEEDED FOR NEEDED FOR NEEDED FOR COUGH COUGH COUGH sucralfate sucralfate No sucralfate Melanie 1 gram 1 gram 1 gram [facility] tablet TAKE tablet TAKE tablet dic 1 TABLET BY 1 TABLET BY TAKE 1 Sports MOUTH EVERY MOUTH EVERY TABLET BY Medicin DAY DAY MOUTH e NEEDED NEEDED EVERY DAY NEEDED acetaminoph acetaminoph No acetaminop Melanie en 300 en 300 hen 300 [facility] mg-codeine mg-codeine mg-codeine dic 60 mg 60 mg 60 mg Sports tablet TAKE tablet TAKE tablet Medicin 1 TABLET BY 1 TABLET BY TAKE 1 e MOUTH TWICE MOUTH TWICE TABLET BY A DAY A DAY MOUTH TWICE A DAY aspirin 81 aspirin 81 No 1 Q1D aspirin 81 Melanie mg mg mg [facility] tablet,maged tablet,maged tablet,del dic yed release yed release ayed S ports Take 1 Take 1 release Medicin tablet tablet Take 1 e every day every day tablet by oral by oral every day route. route. by oral route. atorvastati atorvastati No atorvastat Melanie n 40 mg n 40 mg in 40 mg Ortho pe tablet TAKE tablet TAKE tablet dic 1 TABLET BY 1 TABLET BY TAKE 1 Sports MOUTH EVERY MOUTH EVERY TABLET BY Medicin DAY DAY MOUTH e EVERY DAY baclofen 20 baclofen 20 No baclofen Melanie mg tablet mg tablet 20 mg Orth ope TAKE 1 TAKE 1 tablet dic TABLET BY TABLET BY TAKE 1 Spo rts MOUTH TWICE MOUTH TWICE TABLET BY Medicin A DAY A DAY MOUTH e NEEDED FOR NEEDED FOR TWICE A MUSCLE MUSCLE DAY SPASM SPASM NEEDED FOR MUSCLE SPASM benzonatate benzonatate No benzonatat Melanie 100 mg 100 mg e 100 mg [facility] capsule capsule capsule dic TAKE 1 TAKE 1 TAKE 1 Sports CAPSULE BY CAPSULE BY CAPSULE BY Medicin MOUTH THREE MOUTH THREE MOUTH e TIMES A DAY TIMES A DAY THREE NEEDED NEEDED TIMES A FOR 14 DAYS FOR 14 DAYS DAY NEEDED FOR 14 DAYS carbidopa carbidopa No carbidopa Melanie 25 25 25 [facility] mg-levodopa mg-levodopa mg-levodop dic 100 mg 100 mg a 100 mg Sports tablet TAKE tablet TAKE tablet Medicin 1 TABLET BY 1 TABLET BY TAKE 1 e MOUTH TWICE MOUTH TWICE TABLET BY A DAY A DAY MOUTH TWICE A DAY cefdinir cefdinir No cefdinir Aza william 300 mg 300 mg 300 mg [facility] capsule capsule capsule dic TAKE 1 TAKE 1 TAKE 1 Sports CAPSULE BY CAPSULE BY CAPSULE BY Medicin MOUTH TWICE MOUTH TWICE MOUTH e A DAY A DAY TWICE A DAY famotidine famotidine No famotidine Melanie 40 mg 40 mg 40 mg [facility] tablet TAKE tablet TAKE tablet dic 1 TABLET BY 1 TABLET BY TAKE 1 Sports MOUTH MOUTH TABLET BY Medicin EVERYDAY AT EVERYDAY AT MOUTH e BEDTIME BEDTIME EVERYDAY AT BEDTIME Flovent HFA Flovent HFA No Flovent Melanie 110 110 HFA 110 [facility] mcg/actuati mcg/actuati mcg/actuat dic on aerosol on aerosol ion Spo rts inhaler inhaler aerosol Medici n INHALE 2 INHALE 2 inhaler e PUFFS INTO PUFFS INTO INHALE 2 THE LUNGS THE LUNGS PUFFS INTO TWICE A DAY TWICE A DAY THE LUNGS FOR 30 DAYS FOR 30 DAYS TWICE A DAY FOR 30 DAYS gabapentin gabapentin No gabapentin Melanie 100 mg 100 mg 100 mg [facility] capsule capsule capsule dic TAKE 1 TAKE 1 TAKE 1 Sports CAPSULE BY CAPSULE BY CAPSULE BY Medicin MOUTH THREE MOUTH THREE MOUTH e TIMES A DAY TIMES A DAY THREE TIMES A DAY gabapentin gabapentin No gabapentin Melanie 300 mg 300 mg 300 mg [facility] capsule capsule capsule dic TAKE 1 TAKE 1 TAKE 1 Sports CAPSULE BY CAPSULE BY CAPSULE BY Medicin MOUTH TWICE MOUTH TWICE MOUTH e A DAY. A DAY. TWICE A DAY. hydroxychlo hydroxychlo No hydroxychl Melanie roquine 200 roquine 200 oroquine [facility] mg tablet mg tablet 200 mg dic TAKE 1 TAKE 1 tablet Sports TABLET (200 TABLET (200 TAKE 1 Medicin MG) BY MG) BY TABLET e MOUTH TWICE MOUTH TWICE (200 MG) A DAY A DAY BY MOUTH TWICE A DAY ibuprofen ibuprofen No ibuprofen Melanie 800 mg 800 mg 800 mg [facility] tablet TAKE tablet TAKE tablet dic 1 TABLET BY 1 TABLET BY TAKE 1 Sports MOUTH 3 MOUTH 3 TABLET BY Medi marie TIMES A DAY TIMES A DAY MOUTH 3 e TIMES A DAY levofloxaci levofloxaci No levofloxac Melanie n 500 mg n 500 mg in 500 mg Or thope tablet TAKE tablet TAKE tablet dic 1 TABLET BY 1 TABLET BY TAKE 1 Sports MOUTH EVERY MOUTH EVERY TABLET BY Medicin DAY DAY MOUTH e EVERY DAY mirtazapine mirtazapine No mirtazapin Melanie 7.5 mg 7.5 mg e 7.5 mg [facility] tablet TAKE tablet TAKE tablet dic 1 TABLET BY 1 TABLET BY TAKE 1 Sports MOUTH AT MOUTH AT TABLET BY Me dicin BEDTIME BEDTIME MOUTH AT e BEDTIME montelukast montelukast No montelukas Melanie 10 mg 10 mg t 10 mg [facility] tablet TAKE tablet TAKE tablet dic 1 TABLET BY 1 TABLET BY TAKE 1 Sports MOUTH EVERY MOUTH EVERY TABLET BY Medicin DAY DAY MOUTH e EVERY DAY pantoprazol pantoprazol No pantoprazo Melanie e 40 mg e 40 mg le 40 mg Orth[facility] pe tablet,maged tablet,maged tablet,del dic yed release yed release ayed S ports TAKE 1 TAKE 1 release Medicin TABLET BY TABLET BY TAKE 1 e MOUTH EVERY MOUTH EVERY TABLET BY DAY IN THE DAY IN THE MOUTH MORNING MORNING EVERY DAY IN THE MORNING Paxlovid Paxlovid No Paxlovid Aza william 300 mg (150 300 mg (150 300 mg [facility] mg x 2)-100 mg x 2)-100 (150 mg x dic mg tablets mg tablets 2)-100 mg Sports in a dose in a dose tablets in Medicin pack (EUA) pack (EUA) a dose e TAKE 3 TAKE 3 pack (EUA) TABLETS BY TABLETS BY TAKE 3 MOUTH TWICE MOUTH TWICE TABLETS BY A DAY FOR 5 A DAY FOR 5 MOUTH DAYS DAYS TWICE A DAY FOR 5 DAYS prednisolon prednisolon No prednisolo Melanie e acetate 1 e acetate 1 ne acetate [facility] % eye % eye 1 % eye dic drops,suspe drops,suspe drops,susp Sports nsion nsion ension Medicin INSTILL 1 INSTILL 1 INSTILL 1 e DROP INTO DROP INTO DROP INTO LEFT EYE 4 LEFT EYE 4 LEFT EYE 4 TIMES A DAY TIMES A DAY TIMES A DAY prednisone prednisone No prednisone Melanie 20 mg 20 mg 20 mg [facility] tablet TAKE tablet TAKE tablet dic 3 TABLETS 3 TABLETS TAKE 3 Spo rts BY MOUTH BY MOUTH TABLETS BY M edicin EVERY DAY EVERY DAY MOUTH e X3 DAYS, 2 X3 DAYS, 2 EVERY DAY TABS EVERY TABS EVERY X3 DAYS, 2 DAY X3 DAY X3 TABS EVERY DAYS, 1 TAB DAYS, 1 TAB DAY X3 EVERY DAY EVERY DAY DAYS, 1 X3 DAYS X3 DAYS TAB EVERY DAY X3 DAYS prednisone prednisone No prednisone Melanie 5 mg tablet 5 mg tablet 5 mg O r[facility]ope TAKE 1 TAKE 1 tablet dic TABLET BY TABLET BY TAKE 1 Spo rts MOUTH EVERY MOUTH EVERY TABLET BY Medicin DAY DAY MOUTH e EVERY DAY promethazin promethazin No promethazi Melanie e-DM 6.25 e-DM 6.25 ne-DM 6.25 [facility] mg-15 mg/5 mg-15 mg/5 mg-15 mg/5 dic mL oral mL oral mL oral Sports syrup TAKE syrup TAKE syrup TAKE Medicin BY MOUTH BY MOUTH BY MOUTH e 5ML EVERY 6 5ML EVERY 6 5ML EVERY HOURS HOURS 6 HOURS NEEDED FOR NEEDED FOR NEEDED FOR COUGH COUGH COUGH sucralfate sucralfate No sucralfate Melanie 1 gram 1 gram 1 gram [facility] tablet TAKE tablet TAKE tablet dic 1 TABLET BY 1 TABLET BY TAKE 1 Sports MOUTH EVERY MOUTH EVERY TABLET BY Medicin DAY DAY MOUTH e NEEDED NEEDED EVERY DAY NEEDED acetaminoph acetaminoph No acetaminop Melanie en 300 en 300 hen 300 [facility] mg-codeine mg-codeine mg-codeine dic 60 mg 60 mg 60 mg Sports tablet TAKE tablet TAKE tablet Medicin 1 TABLET BY 1 TABLET BY TAKE 1 e MOUTH TWICE MOUTH TWICE TABLET BY A DAY A DAY MOUTH TWICE A DAY aspirin 81 aspirin 81 No 1 Q1D aspirin 81 Melanie mg mg mg [facility] tablet,maged tablet,maged tablet,del dic yed release yed release ayed S ports Take 1 Take 1 release Medicin tablet tablet Take 1 e every day every day tablet by oral by oral every day route. route. by oral route. atorvastati atorvastati No atorvastat Melanie n 40 mg n 40 mg in 40 mg [facility] pe tablet TAKE tablet TAKE tablet dic 1 TABLET BY 1 TABLET BY TAKE 1 Sports MOUTH EVERY MOUTH EVERY TABLET BY Medicin DAY DAY MOUTH e EVERY DAY baclofen 20 baclofen 20 No baclofen Melanie mg tablet mg tablet 20 mg Orth ope TAKE 1 TAKE 1 tablet dic TABLET BY TABLET BY TAKE 1 Spo rts MOUTH TWICE MOUTH TWICE TABLET BY Medicin A DAY A DAY MOUTH e NEEDED FOR NEEDED FOR TWICE A MUSCLE MUSCLE DAY SPASM SPASM NEEDED FOR MUSCLE SPASM benzonatate benzonatate No benzonatat Melanie 100 mg 100 mg e 100 mg [facility] capsule capsule capsule dic TAKE 1 TAKE 1 TAKE 1 Sports CAPSULE BY CAPSULE BY CAPSULE BY Medicin MOUTH THREE MOUTH THREE MOUTH e TIMES A DAY TIMES A DAY THREE NEEDED NEEDED TIMES A FOR 14 DAYS FOR 14 DAYS DAY NEEDED FOR 14 DAYS carbidopa carbidopa No carbidopa Melanie 25 25 25 [facility] mg-levodopa mg-levodopa mg-levodop dic 100 mg 100 mg a 100 mg Sports tablet TAKE tablet TAKE tablet Medicin 1 TABLET BY 1 TABLET BY TAKE 1 e MOUTH TWICE MOUTH TWICE TABLET BY A DAY A DAY MOUTH TWICE A DAY cefdinir cefdinir No cefdinir Aza william 300 mg 300 mg 300 mg [facility] capsule capsule capsule dic TAKE 1 TAKE 1 TAKE 1 Sports CAPSULE BY CAPSULE BY CAPSULE BY Medicin MOUTH TWICE MOUTH TWICE MOUTH e A DAY A DAY TWICE A DAY Vital Signs Vital Name Observation Time Observation Value Comments Source Height 2022-12-25 00:00:00 69 [in_i] [facility] BMI (Body Mass 2022-12-25 00:00:00 24.4 kg/m2 Melanie [facility] Index) Sports Medicine Body Weight 2022-12-25 00:00:00 165 [lb_av] [facility] Height 2022-12-04 00:00:00 69 [in_i] [facility] BMI (Body Mass 2022-12-04 00:00:00 24.4 kg/m2 Melanie [facility] Index) Sports Medicine Body Weight 2022-12-04 00:00:00 165 [lb_av] [facility] Height 2022-11-08 00:00:00 69 [in_i] [facility] Body Weight 2022-11-08 00:00:00 165 [lb_av] [facility] Height 2022-11-07 00:00:00 69 [in_i] [facility] BMI (Body Mass 2022-11-07 00:00:00 24.4 kg/m2 Melanie [facility] Index) Sports Medicine Body Weight 2022-11-07 00:00:00 165 [lb_av] Melanie Craig [facility] Sports Medicine Systolic blood 2023-05-21 16:34:00 109 mm[Hg] [facility] pressure Diastolic blood 2023-05-21 16:34:00 58 mm[Hg] [facility] pressure Heart rate 2023-05-21 16:34:00 58 /min [facility] Body height 2023-05-21 16:34:00 175.3 cm [facility] Body weight 2023-05-21 16:34:00 76.204 kg [facility] BMI 2023-05-21 16:34:00 24.81 kg/m2 [facility] Systolic blood 2022-06-12 16:31:00 114 mm[Hg] [facility] pressure Diastolic blood 2022-06-12 16:31:00 60 mm[Hg] [facility] pressure Heart rate 2022-06-12 16:31:00 62 /min [facility] Body height 2022-06-12 16:31:00 175.3 cm [facility] Body weight 2022-06-12 16:31:00 78.019 kg [facility] BMI 2022-06-12 16:31:00 25.40 kg/m2 [facility] Temperature Oral (F) 2019-02-13 16:43:00 97.5 F [facility] Systolic (mm Hg) 2019-02-13 16:43:00 Nikolai [facility] [place] Diastolic (mm Hg) 2019-02-13 16:43:00 Mem [facility] [place] Respitory Rate 2019-02-13 16:43:00 [facility] Heart Rate 2019-02-13 16:43:00 [facility] Respitory Rate 2019-02-13 15:12:00 [facility] Heart Rate 2019-02-13 12:35:00 [facility] Temperature Oral (F) 2019-02-13 12:35:00 97.8 F [facility] Systolic (mm Hg) 2019-02-13 12:35:00 Nikolai rial [facility] Diastolic (mm Hg) 2019-02-13 12:35:00 Mem [facility] [place] Respitory Rate 2019-02-13 12:35:00 [facility] Heart Rate 2019-02-13 08:23:00 [facility] Temperature Oral (F) 2019-02-13 08:23:00 97.8 F [facility] Systolic (mm Hg) 2019-02-13 08:23:00 Nikolai chacon [facility] Diastolic (mm Hg) 2019-02-13 08:23:00 Eduardo orial [place] Height 2019-02-11 02:05:00 177.8 cm [facility] Weight 2019-02-11 02:05:00 [facility] BMI Calculated 2019-02-11 02:05:00 [facility] Weight 2019-02-11 01:45:00 [facility] [place] BMI Calculated 2019-02-11 01:45:00 [facility] [place] Height 2019-02-11 01:45:00 177.8 cm [facility] Procedure Date / Time Performed Performing Clinician Sour e MRI, lumbar spine, 2022-11-26 00:00:00 Melanie Or thopedic w/o contrast Sports Medicine MRI, lumbar spine, 2022-11-22 00:00:00 Melanie Or thopedic w/o contrast Sports Medicine TTE COMPLETE, WO 2022-07-13 18:09:23 Gracia Zamora ospital CONTRAST, W DOPPLER ([id number]) LIPID PANEL 2022-06-15 18:02:00 Gracia Zamora spital AST (SGOT) 2022-06-15 18:02:00 Gracia Zamora spital ECG 12-LEAD 2022-06-12 16:31:36 Gracia Zamora spital Heart Stent [facility] Medicine Placement of stent in [facility] cardiac conduit Plan of Care Planned Activity Planned Date Details Comments Source Future Scheduled 2023-07-19 [facility] Test 16:40:33 malignant neoplasm of colon (procedure) [code = 414098425] Future Scheduled 2023-07-19 [facility] Test 16:40:33 malignant neoplasm of colon (procedure) [code = 298366937] Future Scheduled 2023-07-19 [facility] Test 16:40:33 malignant neoplasm of colon (procedure) [code = 374986330] Future Scheduled 2023-07-19 COVID-19 [facility]ACCINE (#[facility] 16:40:33 [code = COVID-19 VACCINE (#1)] Future Scheduled 2023-07-19 65+ PNEUMOCOCCAL [facility] Test 16:40:33 VACCINE (1 - PCV) [code = 65+ PNEUMOCOCCAL VACCINE (1 - PCV)] Future Scheduled 2023-07-19 [facility] Test 16:40:33 (procedure) [code = 020856846] Future Scheduled 2023-07-19 SHINGLES VACCINES (1 [facility] Test 16:40:33 of 2) [code = SHINGLES VACCINES (1 of 2)] Future Scheduled 2023-07-19 [facility] Test 16:40:33 malignant neoplasm of colon (procedure) [code = 415442647] Future Scheduled 2023-07-19 [facility] Test 16:40:33 malignant neoplasm of colon (procedure) [code = 747946987] Future Scheduled 2023-07-19 [facility] 16:40:33 [code = INFLUENZA VACCINE (#1)] Future Scheduled 2023-07-19 [facility] Test 16:40:33 malignant neoplasm of colon (procedure) [code = 883852936] Future Scheduled 2023-07-19 [facility] Test 16:40:33 malignant neoplasm of colon (procedure) [code = 285736976] Future Scheduled 2023-07-19 [facility] Test 16:40:33 malignant neoplasm of colon (procedure) [code = 366548509] Future Scheduled 2023-07-19 COVID-19 [facility]ACCINE (#[facility] 16:40:33 [code = COVID-19 VACCINE (#1)] Future Scheduled 2023-07-19 65+ P[facility]UMOCOCCAL [facility] Test 16:40:33 VACCINE (1 - PCV) [code = 65+ PNEUMOCOCCAL VACCINE (1 - PCV)] Future Scheduled 2023-07-19 [facility] Test 16:40:33 (procedure) [code = 187617206] Future Scheduled 2023-07-19 SHINGLES VACCINES (1 [facility] Test 16:40:33 of 2) [code = SHINGLES VACCINES (1 of 2)] Future Scheduled 2023-07-19 [facility] Test 16:40:33 malignant neoplasm of colon (procedure) [code = 791521389] Future Scheduled 2023-07-19 [facility] Test 16:40:33 malignant neoplasm of colon (procedure) [code = 339328340] Future Scheduled 2023-07-19 INFLUENZA VACCINE (#1) [facility] Test 16:40:33 [code = INFLUENZA VACCINE (#1)] Future Scheduled 2023-07-11 [facility] Test 11:55:44 malignant neoplasm of colon (procedure) [code = 980236898] Future Scheduled 2023-07-11 [facility] Test 11:55:44 malignant neoplasm of colon (procedure) [code = 613585697] Future Scheduled 2023-07-11 [facility] Test 11:55:44 malignant neoplasm of colon (procedure) [code = 345531390] Future Scheduled 2023-07-11 COVID-19 VACCINE (#1) [facility] Test 11:55:44 [code = COVID-19 VACCINE (#1)] Future Scheduled 2023-07-11 65+ PNEUMOCOCCAL [facility] Test 11:55:44 VACCINE (1 - PCV) [code = 65+ PNEUMOCOCCAL VACCINE (1 - PCV)] Future Scheduled 2023-07-11 Hepatitis C screening [facility] Test 11:55:44 (procedure) [code = 158451822] Future Scheduled 2023-07-11 [facility] 11:55:44 of 2) [code = SHINGLES VACCINES (1 of 2)] Future Scheduled 2023-07-11 [facility] Test 11:55:44 malignant neoplasm of colon (procedure) [code = 404264426] Future Scheduled 2023-07-11 [facility] Test 11:55:44 malignant neoplasm of colon (procedure) [code = 962364311] Future Scheduled 2023-07-11 INFLUENZA VACCINE (#1) [facility] Test 11:55:44 [code = INFLUENZA VACCINE (#1)] Future Scheduled 2022-12-17 COVID-19 VACCINE (#1) [facility] Test 15:15:13 [code = COVID-19 VACCINE (#1)] Future Scheduled 2022-12-17 65+ PNEUMOCOCCAL [facility] Test 15:15:13 VACCINE (1 - PCV) [code = 65+ PNEUMOCOCCAL VACCINE (1 - PCV)] Future Scheduled 2022-12-17 Hepatitis C screening [facility] Test 15:15:13 (procedure) [code = 552839043] Future Scheduled 2022-12-17 SHINGLES VACCINES (1 Met [facility] Test 15:15:13 of 2) [code = SHINGLES VACCINES (1 of 2)] Future Scheduled 2022-12-17 COLONOSCOPY SCREENING [facility] Test 15:15:13 [code = COLONOSCOPY SCREENING] Future Scheduled 2022-12-17 INFLUENZA VACCINE [facility] Test 15:15:13 [code = INFLUENZA VACCINE] Future Scheduled 2022-08-30 COVID-19 VACCINE (#1) [facility] Test 22:27:14 [code = COVID-19 VACCINE (#1)] Future Scheduled 2022-08-30 65+ PNEUMOCOCCAL [facility] Test 22:27:14 VACCINE (1 - PCV) [code = 65+ PNEUMOCOCCAL VACCINE (1 - PCV)] Future Scheduled 2022-08-30 Hepatitis C screening [facility] Test 22:27:14 (procedure) [code = 664360362] Future Scheduled 2022-08-30 SHINGLES VACCINES (1 [facility] Test 22:27:14 of 2) [code = SHINGLES VACCINES (1 of 2)] Future Scheduled 2022-08-30 COLONOSCOPY SCREENING [facility] Test 22:27:14 [code = COLONOSCOPY SCREENING] Future Scheduled 2022-08-30 INFLUENZA VACCINE [facility] Test 22:27:14 [code = INFLUENZA VACCINE] Encounters Start End Encounter Admission Attending Care Care Encounter Source Date/Time Date/Time Type Type Clinicians Facility Department ID 2023-05-27 2023-05-27 Bishop Foley.2.840.1 [id number] Methodi 00:00:00 00:00:00 [address]acia On[address] 3.430.2.7 Hospit a .3.665841 l .8 2023-05-27 2023-05-27 Bishop Foley.2.840.1 [id number] Methodi 00:00:00 00:00:00 Gracia On[address] 3.430.2.7 Hospit a .3.688652 l .8 2023-05-21 2023-05-21 Office Sera, 1.2.840.1 [id number] Methodi 11:00:00 14:55:36 Visit Gracia Onofre [address]183.1.[address] 3.430.2.7 Hospit a .3.133367 l .8 2023-05-21 2023-05-21 Office Sera, 1.2.840.1 [id number] Methodi 11:00:00 14:55:36 Visit Gracia Onofre [address]689.1.[address] 3.430.2.7 Hospit a .3.748934 l .8 2023-05-13 2023-05-13 Outpatient FOG_A_Provi AOSM AOSM [id number] Melanie 00:00:00 00:00:00 sandy [id number] [facility]op [facility] 2023-05-06 2023-05-06 Outpatient FOG_A_Provi AOSM AOSM [id number] Melanie 00:00:00 00:00:00 sandy [id number] Orthop e dic Sports Medicin e 2023-04-16 2023-04-16 Orders Ro Aristeo 1.2.840.1 [id number] Methodi 00:00:00 00:00:[address] 3.430.2.7 Hospit a .3.845008 l .8 2023-04-16 2023-04-16 Orders Ro Aristeo 1.2.840.1 [id number] Methodi 00:00:00 00:00:[address] 3.430.2.7 Hospit a .3.066451 l .8 2023-04-15 2023-04-15 Telephone Zamora, 1.2.840.1 [id number] Methodi 00:00:00 00:00:00 Gracia On[address] 3.430.2.7 Hospit a .3.897251 l .8 2023-04-15 2023-04-15 Bishop Ibanez.2.840.1 [id number] Methodi 00:00:00 00:00:00 Gracia Onofre 94403.1.1 [facility] 3.430.2.7 Hospit a .3.796537 l .8 2022-12-27 2022-12-27 Outpatient FOG_A_Provi AOSM AOSM [id number] Melanie 00:00:00 00:00:00 sandy [id number] Orthop e dic Sports Medicin e 2022-12-27 2022-12-27 Outpatient FOG_A_Provi AOSM AOSM [id number] Melanie 00:00:00 00:00:00 sandy [id number] Orthop e dic Sports Medicin e 2022-12-25 2022-12-25 Outpatient FOG_A_Provi AOSM AOSM [id number] Melanie 00:00:00 00:00:00 sandy [id number] Orthop e dic Sports Medicin e 2022-12-25 2022-12-25 Vicki AOSM [place] - Ortho [id number] Melanie 00:00:00 00:00:00 Shaye Suarez - Orthope [employer]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 [phone] 2022-12-24 2022-12-24 Outpatient FOG_A_Provi AOSM AOSM [id number] Melanie 00:00:00 00:00:00 sandy [id number] Orthop e dic Sports Medicin e 2022-12-11 2022-12-11 Outpatient FOG_A_Provi AOSM AOSM [id number] Melanie 00:00:00 00:00:00 sandy [id number] Orthop e dic Sports Medicin e 2022-12-11 2022-12-11 Outpatient FOG_A_Provi AOSM AOSM [id number] Melanie 00:00:00 00:00:00 sandy [id number] Orthop e dic Sports Medicin e 2022-12-11 2022-12-11 Outpatient FOG_A_Provi AOSM AOSM [id number] Melanie 00:00:00 00:00:00 sandy [id number] Orthop e dic Sports Medicin e 2022-12-11 2022-12-11 Vimal A[facility] [place] - Ortho [id number] Melanie 00:00:00 00:00:00 Shaye Plunkett MD: [id number] [place], [place] [address] , Ph. 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 2022-11-28 2022-11-28 Outpatient FOG_A_Provi AOSM AOSM 648 [id number] Melanie 00:00:00 00:00:00 sandy [id number] Orthop e dic Sports Medicin e 2022-11-26 2022-11-26 Telephone Sera 1.2.840.1 [id number] Methodi 00:00:00 00:00:00 Gracia Kumar[address]38.[address] 3.430.2.7 Hospit a .3.867787 l .8 2022-11-26 2022-11-26 Telephone Sera 1.2.840.1 [id number] Methodi 00:00:00 00:00:00 Gracia R[address]01.[address] 3.430.2.7 Hospit a .3.424082 l .8 2022-11-23 2022-11-23 Outpatient FOG_A_Provi AOSM AOSM [id number] Melanie 00:00:00 00:00:00 sandy [id number] Orthop e dic Sports Medicin e 2022-11-08 2022-11-08 Outpatient FOG_A_Provi AOSM AOSM [id number] Melanie 00:00:00 00:00:00 snady [id number] Orthop e dic Sports Medicin e 2022-11-08 2022-11-08 Outpatient FOG_A_Provi AOSM AOSM [id number] Melanie 00:00:00 00:00:00 sandy [id number] Orthop e dic Sports Medicin e 2022-11-08 2022-11-08 Vimal AOSM [place] - Ortho [id number] Melanie 00:00:00 00:00:00 Shaye Plunkett MD: [id number] [facility] [address], [facility] [place] [facility] [address] , Ph. 2022-11-07 2022-11-07 Outpatient FOG_A_Provi AOSM AOSM 648 [id number] Melanie 00:00:00 00:00:00 sandy [id number] Orthop e dic Sports Medicin e 2022-11-07 2022-11-07 [place] A AOSM [place] - Ortho [id number] Melanie 00:00:00 00:00:00 MD Karli: Shaye Nolasco [address] [place] FOG_Ofc dic [facility] Sport s [address], [place] [address] , Ph. [phone] 2022-10-29 2022-10-29 Outpatient FOG_A_Provi AOSM AOSM 648 [id number] Melanie 00:00:00 00:00:00 sandy [id number] Orthop e dic Sports Medicin e 2022-10-29 2022-10-29 Outpatient FOG_A_Provi AOSM AOSM 648 [id number] Melanie 00:00:00 00:00:00 sandy [id number] Orthop e dic Sports Medicin e 2022-10-18 2022-10-18 Outpatient FOG_A_Provi AOSM AOSM 648 [id number] Melanie 00:00:00 00:00:00 sandy [id number] Orthop e dic Sports Medicin e 2022-07-13 2022-07-13 Travel 1.2.840.1 1.2.158.324 [id number] Methodi 00:00:00 00:00:[address] 3.430.2.7 0.2.7.3.698 Ho spita .3.059980 084.8 l .8 2022-07-13 2022-07-13 [facility]patient [facility] [id number] [place] 00:00:00 00:00:00 GRACIA Fleming[address] [facility] 2022-07-03 2022-07-03 Telephone Rossi, 1.2.840.1 [id number] Methodi 00:00:00 00:00:[address] 3.430.2.7 Hospit a .3.714940 l .8 2022-07-03 2022-07-03 Orders Rossi, 1.2.840.1 [id number] [id number] Methodi 00:00:00 00:00:00 Only Mary [address]95.1.[address] 3.430.2.7 Hospit a .3.771587 l .8 2022-06-25 2022-06-25 Refill Sera, 1.2.840.1 [id number] Methodi 00:00:00 00:00:[address] 3.430.2.7 Hospit a .3.143732 l .8 2022-06-12 2022-06-12 Office Sera 1.2.840.1 [id number] 9068 Methodi 11:20:00 15:47:24 Visit Gracia Onofre [address]25.1.[address] 3.430.2.7 Hospit a .3.803034 l .8 2022-06-12 2022-06-12 Travel 1.2.840.1 1.2.341.276 4079 000764 Methodi 00:00:00 00:00:[address] 3.430.2.7 0.2.7.3.698 spita .3.049571 084.8 l .8 2022-05-28 2022-05-28 Telephone Zamora, 1.2.840.1 [id number] [id number] Methodi 00:00:00 00:00:00 rGacia Onofre 21057.1.1 902 3.430.2.7 Hospit a .3.609211 l .8 2021-09-23 2021-09-23 Outpatient Bui_Q VFP VFP [id number]- [facility] 07:01:00 07:01:00 Family Practic e 2021-01-24 2021-01-25 Outpatient ZAMORA, [facility] [id number] [place] 00:00:00 00:00:00 GRACIA [address] 2021-01-04 2021-01-05 Outpatient AZMORA, [facility] 606 [id number] [place] 00:00:00 00:00:00 GRACIA [address] 2020-12-30 2020-12-30 Outpatient ZAMORA, [facility] [id number] [place] 00:00:00 00:00:00 GRACIA [address] 2020-12-20 2020-12-20 Outpatient ZAMORA, [facility] [id number] [address] [place] 00:00:00 00:00:00 GRACIA [address] 2020-12-13 2020-12-13 Outpatient ZAMORA, [facility] [id number] [address] [place] 00:00:00 00:00:00 GRACIA [address] 2020-12-13 2020-12-13 Outpatient ZAMORA, [facility] [id number] [address] [place] 00:00:00 00:00:00 GRACIA [address] 2020-12-06 2020-12-06 Outpatient Bui_Q_WAG VFP VFP [id number] - [facility] 10:32:00 10:32:00 34662 Family Practic e 2020-12-01 2020-12-01 Outpatient SERA, [facility] [id number] [address] [place] 00:00:00 00:00:00 GRACIA [address] 2020-11-29 2020-11-29 Outpatient ZAMORA, [facility] [id number] [place] 00:00:00 00:00:00 GRACIA Mcdonald [facility] 2019-08-18 2019-08-19 Outpt Diag nullFlavo [facility] [address] [id number] Memoria 17:44:00 05:59:00 Services r Outpatient 00 l [facility] 2019-08-18 2019-08-18 Outpatient Hotliudmila, MHOIP MHOIP [id number] 11:44:00 23:59:00 Darinel 00 [place] 2019-04-11 2019-04-12 Outpatient nullFlavo [facility] [id number] Memoria 17:39:00 04:59:00 r [place] 01 l [facility] 2019-04-11 2019-04-11 Outpatient Hotze, MHSE MHSE [id number] 12:39:00 23:59:00 Darinel 01 Eros 2019-02-10 2019-02-13 Inpatient nullFlavo [facility] [id number] Memoria 22:09:47 21:20:00 r [place] 00 l [facility] 2019-02-10 2019-02-13 Outpatient Sweeney, MHPL MHPL [id number] 275 17:09:47 16:20:00 Peter 00 Results Test [...] (test code = Mable simons range <100 68892-9) mg/dL for prima ry prevention; <70 mg/dL for patients with C HD or diabetic patien ts with > or = 2 CHD risk factors. LDL-C is now ca lculated using the Radha Swann calculation, wh ich is a validated novel method providing maxine r accuracy than the Friede dex equation in the estimation of L DL-C. Robin SS et al . JADEN. 2013;310(81): 8 062-1240 (http://educati onBOS [employer]/f aq/NKQ633) Cholesterol/HDL ratio See_Comment [Auto mated message] The (test code = 9830-1) system which generated this result tra nsmitted reference range : <5.0 (calc). The ref erence range was not u sed to interpret this result as normal/abnormal . Non-HDL cholesterol See_Comment For amy ents with (test code = 95329-8) diabet es plus 1 major ASCVD risk [...] (test code = STU) FASTING:YES FASTING: YES ROCAEL (test code = RAC) Performing Organization Information: Site ID: [facility] Name: [facility] Address: [address] [place] [phone] Director: Roland Uribe [facility]22-[facility]-16 04:15:00 Test Item Value Reference Range Interpretation Comments AST (test code = 1920-8) 9 U/L 10-35 L STU (test code = STU) FASTING:YES FASTING: YES RAC (test code = RAC) Performing Organization Information: Site ID: [facility] Name: [facility] Address: [address] [place] [phone] Director: Roland Uribe Lab Interpretation (test Abnormal code = 78923-2) [facility] [id number] 04:15:00 Test Item Value Reference Range Interpretation Comments Cholesterol, total 128 mg/dL <=200 (test code = 2093-3) HDL cholesterol 48 mg/dL See_Comment [Automated (test code = 2084-) message ] The system which generated this result transmitted reference range : > OR = 40. The reference range was not used to interpret this result as normal/abnormal . Triglycerides (test 78 mg/dL <=150 code = 2571-8) LDL cholesterol 64 mg/dL (calc) Reference ra nge: calculated (test <100 Desira ble code = 45189-5) range <100 m g/dL for primary prevention; <70 mg/dL for patients with C HD or diabetic patients with > or = 2 CHD risk factors. LDL-C is now calculated using the Robin-Zoe calculation, which is a validated novel method providin g better accuracy than the Friedewald equation in the estimation of LDL-C. Robin S S et al. JADEN. 2013;310(19): 1509-0264 (http://educati on .[employer] .com/faq/SLT727 ) Cholesterol/HDL 2.7 See_Comment [Automated ratio (test code = message] The 9830-1) system which generated this result transmitted reference range : <5.0 (calc). Th e reference range was not used to interpret this result as normal/abnormal . Non-HDL cholesterol 80 See_Comment For amy ents with (test code = diabetes plus 1 98043-6) major ASCVD ris k factor, treatin g to a non-HDL-C goal of <100 mg/dL (LDL-C of <70 mg/dL) is considered a therapeutic option. [Automated message] The system which generated this result transmitted reference range : <130 mg/dL (calc). The reference range was not used to interpret this result as normal/abnormal . STU (test code = FASTING:YES STU) FASTING: YES RAC (test code = Performing RAC) Organization Information: Site ID: [facility] Name: [facility] Lab Address: [address] [place] [phone] Director: Roland Uribe [facility] ([facility])2022-06-16 04:15:00 Test Item Value Reference Range Interpretation Comments AST (test code = 1920-8) 9 U/L 10-35 L STU (test code = STU) FASTING:YES FASTING: YES RAC (test code = RAC) Performing Organization Information: Site ID: [facility]: [facility] Address: [address] [place] [phone] Director: Roland Uribe Lab Interpretation (test Abnormal code = 53790-6) [address]2022-09-27 22:43:48 Test Item Value Reference Range Interpretation Comments Ventricular rate (test code = 253) Atrial rate (test code = 255) NH interval (test code = 266) QRSD interval [...] ECG of 04-JAN-2021 15:46,-No significant change was found-Electronically Signed By Jessica MARIN [facility] ([id number]) on 06/12/2022 5:43:46 PM [address]2022-09-27 22:43:48 Test Item Value Reference Range Interpretation Comments Ventricular rate (test 54 code = 253) Atrial rate (test code 54 = 255) NH interval (test code 132 = 266) QRSD interval (test 102 code = 260) QT interval (test code 454 = 264) QTC interval (test code 430 = 265) P axis 1 (test code = 47 267) QRS axis 1 (test code = -60 268) T wave axis (test code 35 = 270) EKG impression (test Poor data code = 273) quality-Sinus bradycardia-Left anterior fascicular block-Cannot rule out Anterior infarct , age undetermined-Abnormal ECG-In automated comparison with ECG of 04-JAN-2021 15:46,-No significant change was found- [facility] RNA [Presence] in Respiratory specimen by MARIO with probe gysyjopcr6933-14-38 00:02:00 Test Item Value Reference Range Interpretation Comments SARS-CoV-2 (COVID-19) RNA Not detected Not-Detected [Presence] in Respiratory specimen by MARIO with probe detection (test code = 05728-0) FRIDA CARTER UQNAJACPJQTQEJ3380-16-68 08:11:00 Test Item Value Reference Range Interpretation Comments Lymphocytes (test code = Lymphocytes) 14.0 20.0-40.0 [facility] RockJmoqeqyLIRHQCMQAH4392-32-74 08:11:00 Test Item Value Reference Range Interpretation Comments Monocytes (test code = Monocytes) 21.0 2.0-12.0 [facility] RockAcoodebEIGKYMUXGS6203-97-84 08:11:00 Test Item Value Reference Range Interpretation Comments Lymphocytes # (test code = Lymphocytes 0.4 1.0-5.5 #) [facility] RockLwjnoybYRNTSOOXIN1363-09-60 08:11:00 Test Item Value Reference Range Interpretation Comments Neutrophils # (test code = Neutrophils 2.0 1.5-8.1 #) [facility] RockRekumoeLMRPCEMOSO4144-52-76 08:11:00 Test Item Value Reference Range Interpretation Comments RBC Morph (test code = Normal (02/12/19 3:11 RBC Morph) AM) [facility] RockQrfnrmtQGQQGMMKZX1700-56-77 08:11:00 Test Item Value Reference Range Interpretation Comments Segs (test code = Segs) 65.0 45.0-75.0 [facility] RockNjejiukGMRTKVBWSX9264-04-62 08:11:00 Test Item Value Reference Range Interpretation Comments Tot Cell Ct (test code = Tot Cell Ct) 100 1 [facility] RockQadgbowUUCZNZDJWK1214-36-96 08:11:00 Test Item Value Reference Range Interpretation Comments Monocytes # (test code = Monocytes #) 0.7 <=0.8 [facility] RockFqomxcyUSJHUAOGMW6397-56-51 08:11:00 Test Item Value Reference Range Interpretation Comments Plt Morph (test code = Normal (02/12/19 3:11 Plt Morph) AM) [facility] RockNgqfephIGYRXAJREZ4383-62-07 08:11:00 Test Item Value Reference Range Interpretation Comments MPV (test code = MPV) 8.6 7.4-10.4 [facility] RockDbgaehaKSDDEPZBIS2859-93-58 08:11:00 Test Item Value Reference Range Interpretation Comments MCH (test code = MCH) 36.5 pg 27.0-31.0 [facility] RockNemftljBCDVEBAGIE5683-45-93 08:11:00 Test Item Value Reference Range Interpretation Comments MCHC (test code = MCHC) 33.9 32.0-36.0 [facility] HospitalTxubnckEQWIEAPFOS4286-28-95 08:11:00 Test Item Value Reference Range Interpretation Comments WBC (test code = WBC) 3.1 3.7-10.4 [facility] HospitalDwswxolLQPPCXWMGB1842-77-96 08:11:00 Test Item Value Reference Range Interpretation Comments Hgb (test code = Hgb) 10.6 14.0-18.0 [facility] HospitalDeavnygHXZHCBZXBS2290-39-76 08:11:00 Test Item Value Reference Range Interpretation Comments Hct (test code = Hct) 31.2 42.0-54.0 [facility] HospitalBrbjjzwWSHSNCSHDH0345-60-07 08:11:00 Test Item Value Reference Range Interpretation Comments MCV (test code = MCV) 107.7 80.0-94.0 [facility] HospitalYjysoxjLUPBNFMSBE0965-16-07 08:11:00 Test Item Value Reference Range Interpretation Comments RDW (test code = RDW) 20.3 11.5-14.5 [facility] HospitalThdrmtlIVLURXXOSW5806-75-51 08:11:00 Test Item Value Reference Range Interpretation Comments Platelet (test code = Platelet) 298 133-450 [facility] HospitalUzhyziwHPAWBFWQZQ1546-93-81 08:11:00 Test Item Value Reference Range Interpretation Comments RBC (test code = RBC) 2.90 4.70-6.10 [facility] HospitalGram Stain Avursb9542-08-41 20:39:00 Test Item Value Reference Range Interpretation Comments Gram Stain Report Gram Stain Performed By: (test code = Gram [facility] Stain Report) [facility]Culture: Respiratory w/Gram Ibdwf9500-19-08 20:39:00 Test Item Value Reference Range Interpretation Comments Culture: Respiratory Normal Respiratory w/Gram Stain (test code Cecy Isolated = Culture: Respiratory w/Gram Stain) [facility] [id number] 16:40:00 Test Item Value Reference Range Interpretation Comments Gluc BF Type (test Pleural *NA*(02/11/19 code = Gluc BF Type) 11:40 AM) [facility] [id number] 16:40:00 Test Item Value Reference Range Interpretation Comments Glucose BF (test code = Glucose BF) 73 [facility] [id number] 16:40:00 Test Item Value Reference Range Interpretation Comments Prot BF Type (test Pleural *NA*(02/11/19 code = Prot BF Type) 11:40 AM) [facility] [id number] 16:40:00 Test Item Value Reference Range Interpretation Comments Protein BF (test code = Protein BF) 4.1 [facility] SGAXWT5027-03-00 16:40:00 Test Item Value Reference Range Interpretation Comments LDH BF Type (test Pleural (02/11/19 11:40 code = LDH BF Type) AM) [facility] [id number] 16:40:00 Test Item Value Reference Range Interpretation Comments LDH BF (test code = LDH BF) 794 [facility] HospitalGram Stain Jblksm7775-01-11 16:40:00 Test Item Value Reference Range Interpretation Comments Gram Stain Report Rare WBC's No Organisms (test code = Gram Seen Stain Report) [facility] HospitalCulture: Aspirate/Body Fluid/Wytrbe7811-24-12 16:40:00 Test Item Value Reference Range Interpretation Comments Culture: Aspirate/Body Fluid/Tissue No Growth (test code = Culture: Aspirate/Body Fluid/Tissue) [facility] HospitalBACTERIAL - [id number] 16:21:00 Test Item Value Reference Range Interpretation Comments Source Strep (test code Urine *NA*(02/11/19 = Source Strep) 11:21 AM) [facility] HospitalBACTERIAL - [id number] 16:21:00 Test Item Value Reference Range Interpretation Comments Strep pneumoniae Ag Negative (02/11/19 (test code = Strep 11:21 AM) pneumoniae Ag) [facility]2019-05-29 15:45:00 Test Item Value Reference Range Interpretation Comments Clarity BF (test code = Slight Cloudy (02/11/19 Clarity BF) 10:45 AM) [facility]2019-05-29 15:45:00 Test Item Value Reference Range Interpretation Comments Nucleated Cells BF (test code = 780 Nucleated Cells BF) [facility]2019-05-29 15:45:00 Test Item Value Reference Range Interpretation Comments Neutrophils BF (test code = Neutrophils 28 BF) [facility]2019-05-29 15:45:00 Test Item Value Reference Range Interpretation Comments RBC BF (test code = RBC BF) 3900 [facility] UptownFairSoftware [id number] 15:45:00 Test Item Value Reference Range Interpretation Comments Macrophage BF (test code = Macrophage 51 BF) [facility]ptownFairSoftware [id number] 15:45:00 Test Item Value Reference Range Interpretation Comments Lymph BF (test code = Lymph BF) 21 [facility] HospitalAvanse Financial Services [id number] 15:45:00 Test Item Value Reference Range Interpretation Comments CellCnt BF Type (test Pleural (02/11/19 10:45 code = CellCnt BF Type) AM) [facility]ptownFair[facility] [id number] 15:45:00 Test Item Value Reference Range Interpretation Comments Color BF (test code = Yellow (02/11/19 10:45 Color BF) AM) [facility] UptownRealtime GamesCARREHAC [id number] 15:45:00 Test Item Value Reference Range Interpretation Comments Troponin-I (test code = Troponin-I) no gt <=0.40 [facility] UptownWeibuAC [id number] 13:14:00 Test Item Value Reference Range Interpretation Comments Troponin-I (test code = Troponin-I) no gt <=0.40 [facility] [employer] [id number] 09:11:00 Test Item Value Reference Range Interpretation Comments Magnesium Lvl (test code = Magnesium 2.1 1.8-2.4 Lvl) [facility] [employer] [id number] 09:11:00 Test Item Value Reference Range Interpretation Comments Procalcitonin Lvl (test code = 0.45 <=0.10 Procalcitonin Lvl) [facility] UptownWmayosnFGFKQYSBUGBT2875-62-70 09:11:00 Test Item Value Reference Range Interpretation Comments CO2 (test code = CO2) 23 24-32 [facility] UptownXkscazsMPEHLMUDFIGA1728-17-06 09:11:00 Test Item Value Reference Range Interpretation Comments Calcium Lvl (test code = Calcium Lvl) 8.0 8.5-10.5 [facility] UptownUvtdmosZOMAUELDTQTO6424-80-33 09:11:00 Test Item Value Reference Range Interpretation Comments AGAP (test code = AGAP) 14.4 10.0-20.0 [facility] KfpzdikBHJMOEMIFWIW4961-42-69 09:11:00 Test Item Value Reference Range Interpretation Comments eGFR (test code = eGFR) 94 [facility] HospitalGpomzolZWRFRPOGEVBH9539-41-23 09:11:00 Test Item Value Reference Range Interpretation Comments BUN (test code = BUN) 10 7-22 [facility] HospitalJfkwkvsYDQVSQIJVJHJ1102-15-01 09:11:00 Test Item Value Reference Range Interpretation Comments Creatinine Lvl (test code = Creatinine 0.71 0.50-1.40 Lvl) [facility] HospitalSvovyuqGRFECFCPCFNC8372-57-90 09:11:00 Test Item Value Reference Range Interpretation Comments Sodium Lvl (test code = Sodium Lvl) 134 135-145 [facility] HospitalBrktkypXVPUJXYSFVRD6871-50-85 09:11:00 Test Item Value Reference Range Interpretation Comments Potassium Lvl (test code = Potassium 3.4 3.5-5.1 Lvl) [facility] HospitalOxljotgBCGKXJFYTCFX2309-55-60 09:11:00 Test Item Value Reference Range Interpretation Comments Chloride Lvl (test code = Chloride Lvl) 100 95-109 [facility]VjpsfscIQUGYHDWKZGT5357-68-46 09:11:00 Test Item Value Reference Range Interpretation Comments Glucose Lvl (test code = Glucose Lvl) 83 70-99 [facility] HospitalCARDIAC IBSQRHN8476-88-51 09:11:00 Test Item Value Reference Range Interpretation Comments Troponin-I (test code = Troponin-I) no gt <=0.40 [facility] HospitalCHEM [id number] 09:11:00 Test Item Value Reference Range Interpretation Comments Phosphorus (test code = Phosphorus) 2.4 2.5-4.5 [facility] [id number] 03:37:00 Test Item Value Reference Range Interpretation Comments Source Respiratory Nasophrngl Swb Panel PCR (test code = *NA*(02/10/19 10:37 PM) Source Respiratory Panel PCR) [facility] [id number] 03:37:00 Test Item Value Reference Range Interpretation Comments Influenza A PCR (test Negative (02/10/19 code = Influenza A PCR) 10:37 PM) [facility]ownannASC[facility] [id number] 03:37:00 Test Item Value Reference Range Interpretation Comments Influenza B PCR (test Negative (02/10/19 code = Influenza B PCR) 10:37 PM) [facility]annASCENS[facility] [id number] 03:37:00 Test Item Value Reference Range Interpretation Comments RSV PCR (test code = Negative (02/10/19 10:37 RSV PCR) PM) [facility] HospitalBACTERIAL - [id number] 00:18:00 Test Item Value Reference Range Interpretation Comments Source Strep (test code Urine *NA*(02/10/19 = Source Strep) 7:18 PM) [facility] UptownannBACTERIAL - [id number] 00:18:00 Test Item Value Reference Range Interpretation Comments Strep pneumoniae Ag Negative (02/10/19 (test code = Strep 7:18 PM) pneumoniae Ag) [facility] AND [id number] 00:18:00 Test Item Value Reference Range Interpretation Comments UA Urobilinogen (test code = UA <=1.0 mg/dL 0.1-1.0 Urobilinogen) [facility] AND [id number] 00:18:00 Test Item Value Reference Range Interpretation Comments UA Sq Epi (test code = UA Sq Epi) None Seen [facility] AND [id number] 00:18:00 Test Item Value Reference Range Interpretation Comments UA WBC (test code = UA WBC) 1 <=5 [facility] AND [id number] 00:18:00 Test Item Value Reference Range Interpretation Comments UA Mucus (test code = UA Mucus) Many /LPF [facility] AND [id number] 00:18:00 Test Item Value Reference Range Interpretation Comments UA Leuk Est (test Negative (02/10/19 7:18 code = UA Leuk Est) PM) [facility] AND [id number] 00:18:00 Test Item Value Reference Range Interpretation Comments UA Nitrite (test code Negative (02/10/19 7:18 = UA Nitrite) PM) [facility] AND [id number] 00:18:00 Test Item Value Reference Range Interpretation Comments UA RBC (test code = UA RBC) 8 <=2 [facility]ann[facility] AND [id number] 00:18:00 Test Item Value Reference Range Interpretation Comments UA Bili (test code = Negative *NA*(02/10/19 UA Bili) 7:18 PM) [facility]ownannJE[facility] AND [id number] 00:18:00 Test Item Value Reference Range Interpretation Comments UA Blood (test code = Negative (02/10/19 7:18 UA Blood) PM) [facility] AND [id number] 00:18:00 Test Item Value Reference Range Interpretation Comments UA Turbidity (test code Slight *ABN*(02/10/19 = UA Turbidity) 7:18 PM) [facility] AND [id number] 00:18:00 Test Item Value Reference Range Interpretation Comments UA Color (test code = Brook *ABN*(02/10/19 UA Color) 7:18 PM) [facility] AND [id number] 00:18:00 Test Item Value Reference Range Interpretation Comments UA Spec Grav (test code = UA Spec 1.024 1 Grav) [facility] AND [id number] 00:18:00 Test Item Value Reference Range Interpretation Comments UA Glucose (test code = UA Negative mg/dL Glucose) [facility] AND [id number] 00:18:00 Test Item Value Reference Range Interpretation Comments UA Protein (test code = UA Protein) 100 mg/dL [facility] AND [id number] 00:18:00 Test Item Value Reference Range Interpretation Comments UA pH (test code = UA pH) 5.0 1 5.0-8.[address] [facility] AND [id number] 00:18:00 Test Item Value Reference Range Interpretation Comments UA Ketones (test code = UA Ketones) 20 mg/dL [facility] HospitalCARDIAC [id number] 23:01:00 Test Item Value Reference Range Interpretation Comments BNP (test code = BNP) 46 [facility] UptownComenta.TV (Wayin) [id number] 23:01:00 Test Item Value Reference Range Interpretation Comments eGFR (test code = eGFR) 86 [facility] [id number] 23:01:00 Test Item Value Reference Range Interpretation Comments BUN (test code = BUN) 14 7-22 [facility] [id number] 23:01:00 Test Item Value Reference Range Interpretation Comments Creatinine Lvl (test code = Creatinine 0.87 0.50-1.40 Lvl) [facility] [id number] 23:01:00 Test Item Value Reference Range Interpretation Comments Sodium Lvl (test code = Sodium Lvl) 133 135-145 [facility] [id number] 23:01:00 Test Item Value Reference Range Interpretation Comments Potassium Lvl (test code = Potassium 4.0 3.5-5.1 Lvl) [facility]2019-05-28 23:01:00 Test Item Value Reference Range Interpretation Comments CO2 (test code = CO2) 25 24-32 [facility]2019-05-28 23:01:00 Test Item Value Reference Range Interpretation Comments Calcium Lvl (test code = Calcium Lvl) 8.3 8.5-10.5 [facility]2019-05-28 23:01:00 Test Item Value Reference Range Interpretation Comments Chloride Lvl (test code = Chloride Lvl) 97 95-109 [facility]2019-05-28 23:01:00 Test Item Value Reference Range Interpretation Comments ALT (test code = ALT) 20 <=65 [facility]2019-05-28 23:01:00 Test Item Value Reference Range Interpretation Comments Total Protein (test code = Total 7.2 6.4-8.4 Protein) [facility]2019-05-28 23:01:00 Test Item Value Reference Range Interpretation Comments Albumin Lvl (test code = Albumin Lvl) 2.4 3.5-5.0 [facility]2019-05-28 23:01:00 Test Item Value Reference Range Interpretation Comments AST (test code = AST) 19 <=37 [facility]2019-05-28 23:01:00 Test Item Value Reference Range Interpretation Comments Bili Total (test code = Bili Total) 0.8 0.2-1.3 [facility]2019-05-28 23:01:00 Test Item Value Reference Range Interpretation Comments Alk Phos (test code = Alk Phos) 51 39-136 [facility]2019-05-28 23:01:00 Test Item Value Reference Range Interpretation Comments Glucose Lvl (test code = Glucose Lvl) 99 70-99 [facility]2019-05-28 23:01:00 Test Item Value Reference Range Interpretation Comments A/G Ratio (test code = A/G Ratio) 0.5 1 0.7-1.6 [facility]2019-05-28 23:01:00 Test Item Value Reference Range Interpretation Comments Globulin (test code = Globulin) 4.8 2.7-4.2 [facility]2019-05-28 23:01:00 Test Item Value Reference Range Interpretation Comments B/C Ratio (test code = B/C Ratio) 16 1 6-25 [facility] [id number] 23:01:00 Test Item Value Reference Range Interpretation Comments AGAP (test code = AGAP) 15.0 10.0-20.0 [facility]2019-05-28 23:01:00 Test Item Value Reference Range Interpretation Comments Lactic Acid Lvl (test code = Lactic 1.0 0.5-2.2 Acid Lvl) [facility] [id number] 23:01:00 Test Item Value Reference Range Interpretation Comments Hgb (test code = Hgb) 11.3 14.0-18.0 [facility] [id number] 23:01:00 Test Item Value Reference Range Interpretation Comments WBC (test code = WBC) 4.4 3.7-10.4 [facility] [id number] 23:01:00 Test Item Value Reference Range Interpretation Comments MCV (test code = MCV) 107.0 80.0-94.0 [facility] [id number] 23:01:00 Test Item Value Reference Range Interpretation Comments Hct (test code = Hct) 33.1 42.0-54.0 [facility] [id number] 23:01:00 Test Item Value Reference Range Interpretation Comments RBC (test code = RBC) 3.10 4.70-6.10 [facility] [id number] 23:01:00 Test Item Value Reference Range Interpretation Comments Platelet (test code = Platelet) 356 133-450 [facility] [id number] 23:01:00 Test Item Value Reference Range Interpretation Comments MCHC (test code = MCHC) 34.1 32.0-36.0 [facility] [id number] 23:01:00 Test Item Value Reference Range Interpretation Comments MCH (test code = MCH) 36.5 pg 27.0-31.0 [facility] [id number] 23:01:00 Test Item Value Reference Range Interpretation Comments RDW (test code = RDW) 21.0 11.5-14.5 [facility] [id number] 23:01:00 Test Item Value Reference Range Interpretation Comments MPV (test code = MPV) 8.5 7.4-10.4 [facility] [id number] 23:01:00 Test Item Value Reference Range Interpretation Comments Monocytes # (test code = Monocytes #) 0.7 <=0.8 [facility] [id number] 23:01:00 Test Item Value Reference Range Interpretation Comments Lymphocytes # (test code = Lymphocytes 0.5 1.0-5.5 #) [facility] [id number] 23:01:00 Test Item Value Reference Range Interpretation Comments Macrocyte (test code = 1+ *ABN*(02/10/19 Macrocyte) 6:01 PM) [facility] [id number] 23:01:00 Test Item Value Reference Range Interpretation Comments Segs (test code = Segs) 71.6 45.0-75.0 [facility] [id number] 23:01:00 Test Item Value Reference Range Interpretation Comments Neutrophils # (test code = Neutrophils 3.1 1.5-8.1 #) [facility] [id number] 23:01:00 Test Item Value Reference Range Interpretation Comments Basophils (test code = Basophils) 0.4 <=1.0 [facility] [id number] 23:01:00 Test Item Value Reference Range Interpretation Comments Eosinophils (test code = Eosinophils) 0.1 <=4.0 [facility] [id number] 23:01:00 Test Item Value Reference Range Interpretation Comments Lymphocytes (test code = Lymphocytes) 11.6 20.0-40.0 [facility] [id number] 23:01:00 Test Item Value Reference Range Interpretation Comments Monocytes (test code = Monocytes) 16.3 2.0-12.0 [facility]
[2023-08-05 10:53] LABS: Absolute Lymphocytes (CBC) 0.6 K/uL (0.7-4.9); Lymphocytes % 12.3 % (15.3-44.8); MCV 106.1 fL (80-100); MPV 10.2 fL (7.6-11.3); Platelets 145 thou/uL (152-406); RBC Red Blood Cell Count 2.35 M/uL (4.33-5.43)
[2023-08-05] MEDS ORDERED: NA CHLORIDE 0.9% 500 ML ONE ×2 (10:57→12:12)
[2023-08-05 11:19] LABS: Albumin 2.9 g/dL (3.4-5.0); Bilirubin Direct 0.2 mg/dL (0-0.2); Bilirubin Indirect, Calculated 0.4 mg/dL (0.2-0.8); Bilirubin Total 0.6 mg/dL (0.2-1.0); Magnesium 2.2 mg/dL (1.6-2.4); Potassium 3.8 mEq/L (3.5-5.1); Protein, Total 7.1 g/dL (6.4-8.2); Thyroid Stimulating Hormone 0.012 uIU/mL (0.358-3.740); Troponin High Sensitivity 4.6 pg/mL (<58.9)
--- NOTE | 2023-08-05 11:21 | RAD REPORT ---
EXAM DESCRIPTION: [place] Single View08/05/2023 11:09 am CLINICAL HISTORY: Chest pain COMPARISON: 2020 FINDINGS: A 1 centimeter right lower lobe nodule unchanged likely benign Lungs appear clear of acute infiltrate. Heart is normal size IMPRESSION: No acute abnormalities displayed
[2023-08-05 12:17] LABS: Anisocytosis 1+; Blood Morphology Comment NOTED (NOT SEEN); Platelet Estimate ADEQ; Platelets, Giant FEW; White Blood Cell Scan OK (OK)
[2023-08-05 12:18] LABS: Macrocytosis 1+
--- NOTE | 2023-08-05 12:34 | EDPHYS ---
Physician Documentation [facility] Name: Michael Grant Age: 77 yrs Sex: Male : 1945 Arrival Date: 08/05/2023 Time: 10:16 Bed 3 Private MD: ED Physician Miah Hickey HPI: 08/05 10:39 This 77 yrs old Male presents to ER via Wheelchair with complaints of General Weakness, rt Chest Pain, Shortness Of Breath. 10:39 Patient presents to the ED with about 1 week of shortness of breath, generalized rt weakness, progressively worsening. Patient states it is now difficult for him to walk or get around due to the weakness. Denies cough, reports mild chills. Denies fever. States that he had intermittent chest pain that woke him up from last night but no chest pain currently. Denies other acute complaints at this time, symptoms are moderate in severity, no other aggravating or alleviating factors.. Historical: - Allergies: 10:21 No Known Allergies; mb9 - Home Meds: 12:43 famotidine 40 mg Oral tablet [Active]; hydroxychloroquine 200 mg oral tablet 2 times aa5 per day [Active]; pantoprazole oral 30mg once [Active]; montelukast 10 mg oral tablet once [Active]; atorvastatin 40 mg oral tablet once [Active]; prednisone 5 mg Oral tablet once [Active]; sucralfate 1 gram Oral tablet once [Active]; Orencia (with maltose) intravenous every 4 weeks [Active]; docusate sodium 50 mg Oral capsule 2 times per day [Active]; simethicone 125 mg Oral capsule 2 times per day [Active]; 12:52 Methimazole Oral [Active]; aa5 - PMHx: 10:21 Anemia; Myocardial infarction; High Cholesterol; Headaches; GERD; Rheumatoid Arthritis; mb9 12:52 thyroid problem; aa5 - PSHx: 10:21 cardiac stents X 5; kyphoplasty; mb9 - Immunization history:: Adult Immunizations up to date. - Social history:: Smoking status: Patient denies any tobacco usage or history of. - Family history:: not pertinent. ROS: 10:39 Eyes: Negative for injury, pain, redness, and discharge, Abdomen/GI: Negative for rt abdominal pain, nausea, vomiting, diarrhea, and constipation, MS/Extremity: Negative for injury and deformity, Skin: Negative for injury, rash, and discoloration, Psych: Negative for depression, anxiety, suicide ideation, homicidal ideation, and hallucinations, 10:39 Constitutional: Positive for chills, fatigue, 10:39 Cardiovascular: Positive for chest pain, Negative for edema, 10:39 Respiratory: Positive for shortness of breath, Negative for cough, 10:39 Neuro: Positive for weakness, Negative for altered mental status, Exam: 10:39 Head/Face: Normocephalic, atraumatic. Chest/axilla: Normal chest wall appearance and rt motion. Nontender with no deformity. No lesions are appreciated. Cardiovascular: Regular rate and rhythm with a normal S1 and S2. No gallops, murmurs, or rubs. Normal PMI, no JVD. No pulse deficits. Respiratory: Lungs have equal breath sounds bilaterally, clear to auscultation and percussion. No rales, rhonchi or wheezes noted. No increased work of breathing, no retractions or nasal flaring. Abdomen/GI: Soft, non-tender, with normal bowel sounds. No distension or tympany. No guarding or rebound. No evidence of tenderness throughout. Skin: Warm, dry with normal turgor. Normal color with no rashes, no lesions, and no evidence of cellulitis. MS/ Extremity: Pulses equal, no cyanosis. Neurovascular intact. Full, normal range of motion. Neuro: Awake and alert, GCS 15, oriented to person, place, time, and situation. Cranial nerves II-XII grossly intact. Motor strength 5/5 in all extremities. Sensory grossly intact. Cerebellar exam normal. Normal gait. Psych: Awake, alert, with orientation to person, place and time. Behavior, mood, and affect are within normal limits. 10:39 Constitutional: The patient appears Pale, no acute distress 10:39 ECG was reviewed by the Attending Physician. 13:47 ECG was reviewed by the Attending Physician. rt Vital Signs: 10:20 BP 92 / 53; Pulse 73; Resp 16; Temp 97.2; Pulse Ox 100% ; Weight 72.57 kg; Height 5 ft. mb9 9 in. ; Pain 2/10; 10:30 BP 114 / 47; Pulse 66; Resp 16; Pulse Ox 100% on R/A; Weight 72.57 kg; ld1 11:57 BP 97 / 49; Pulse 57; Resp 18; Pulse Ox 100% ; tm6 12:08 BP 89 / 44; Pulse 57; Resp 18; Pulse Ox 100% ; tm6 12:22 BP 93 / 32; Pulse 55; Resp 16 S; Pulse Ox 100% on R/A; aa5 12:30 BP 91 / 61; Pulse 57; Resp 16 S; Pulse Ox 100% on R/A; aa5 12:42 BP 87 / 44; Pulse 58; Resp 18 S; Pulse Ox 100% on R/A; aa5 12:44 BP 93 / 42; Pulse 56; Resp 17; Pulse Ox 100% on R/A; tm6 12:57 BP 90 / 39; Pulse 56; Resp 17 S; Pulse Ox 100% on R/A; aa5 13:19 BP 110 / 63; Pulse 61; Resp 22; Pulse Ox 100% ; tm6 13:25 BP 115 / 49; Pulse 62; Resp 16 S; Pulse Ox 100% on R/A; aa5 13:35 BP 109 / 48; Pulse 59; Resp 17 S; Pulse Ox 100% on R/A; aa5 13:55 BP 102 / 51; Pulse 59; Resp 16 S; Pulse Ox 100% on R/A; aa5 14:57 BP 115 / 56; Pulse 69; Resp 18; Pulse Ox 98% on R/A; ld1 15:20 BP 95 / 53; Pulse 60; Resp 17; Pulse Ox 99% on R/A; tm6 10:20 Body Mass Index 23.63 (72.57 kg, 175.26 cm) mb9 10:20 Pain Scale: Adult mb9 MDM: 10:22 Patient medically screened. rt 12:43 Differential diagnosis: Hypotension, volume depletion, anemia, addisonian crisis. Data rt reviewed: vital signs, nurses notes, lab test result(s), EKG, radiologic studies. Consideration of Admission/Observation Patient was admitted/placed on observation. Management of patient was discussed with the following: Hospitalist: Agrees to admit. Independent interpretation of the following test(s) in the Emergency Department X-Ray: My interpretation is No consolidation seen on interpretation of images. Care significantly affected by the following chronic conditions: Rheumatoid arthritis, hyperthyroidism, anemia. Counseling: I had a detailed discussion with the patient and/or guardian regarding the historical points, exam findings, and any diagnostic results supporting the discharge/admit diagnosis, lab results, radiology results, the need for further work-up and treatment in the hospital. Response to treatment: the patient's symptoms have mildly improved after treatment. 08/05 10:35 Order name: Basic Metabolic Panel; Complete Time: 11:23 rt 08/05 10:35 Order name: CBC with Diff; Complete Time: 15:20 rt 08/05 10:35 Order name: LFT's; Complete Time: 11: rt 08/05 10:35 Order name: Magnesium; Complete Time: 11: rt 08/05 10:35 Order name: Troponin HS; Complete Time: 11: rt 08/05 10:35 Order name: TSH; Complete Time: 11: rt 08/05 10:35 Order name: UAM rt 08/05 10:53 Order name: Glucose, Ancillary Testing; Complete Time: 11:00 EDMS 08/05 10:56 Order name: CBC Smear Scan; Complete Time: 15: EDMS 08/05 11:24 Order name: T4 Free; Complete Time: 12:14 rt 08/05 13:17 Order name: Magnesium EDMS 08/05 13:17 Order name: Phosphorus EDMS 08/05 13:17 Order name: Thyroid Stimulating Hormone EDMS 08/05 13:17 Order name: Urinalysis w/ reflexes EDMS 08/05 13:17 Order name: Basic Metabolic Panel EDMS 08/05 13:17 Order name: Basic Metabolic Panel EDMS 08/05 13:17 Order name: CBC with Automated Diff EDMS 08/05 13:17 Order name: CBC with Automated Diff EDMS 08/05 13:17 Order name: Lipid Profile EDMS 08/05 13:17 Order name: Lipid Profile EDMS 08/05 10:35 Order name: XRAY Chest (1 view); Complete Time: 11:23 rt 08/05 15:36 Order name: CT; Complete Time: 15:38 EDMS 08/05 10:35 Order name: EKG; Complete Time: 10:35 rt 08/05 13:31 Order name: EKG; Complete Time: 13:32 rt 08/05 10:35 Order name: Cardiac monitoring; Complete Time: 10:37 rt 08/05 10:35 Order name: EKG - Nurse/Tech; Complete Time: 10:37 rt 08/05 10:35 Order name: IV Saline Lock; Complete Time: 10:37 rt 08/05 10:35 Order name: Labs collected and sent; Complete Time: 10:37 rt 08/05 10:35 Order name: O2 Per Protocol; Complete Time: 10:37 rt 08/05 10:35 Order name: O2 Sat Monitoring; Complete Time: 10:37 rt 08/05 13:31 Order name: EKG - Nurse/Tech; Complete Time: 13:39 rt EC:39 Rate is 64 beats/min. Rhythm is regular, Normal Sinus Rhythm with No ectopy, lafb. QRS rt [place] is Normal. [place] interval is normal. QRS interval is normal. QT interval is normal. Clinical impression: NSR w/ Non-specific ST/T Changes. 13:47 Rate is 59 beats/min. Rhythm is regular, Sinus bradycardia with No ectopy, LAFB. Left rt axis deviation noted. IL interval is normal. QRS interval is normal. QT interval is normal. No Q waves. Clinical impression: NSR w/ Non-specific ST/T Changes. Administered Medications: 10:45 Drug: NS 0.9% IV 500 ml IV at bolus once Route: IV; Rate: bolus; Site: right forearm; aa5 11:15 Follow up: IV Status: Completed infusion; IV Intake: 500ml aa5 12:02 Drug: NS 0.9% IV 500 ml IV at bolus once Route: IV; Rate: bolus; Site: right forearm; tm6 13:40 Follow up: IV Status: Completed infusion; IV Intake: 500ml aa5 12:31 Drug: Solu-CORTEF IVP 100 mg IVP once Route: IVP; Site: right forearm; aa5 13:02 Follow up: Response: No adverse reaction aa5 13:04 Drug: NS 0.9% IV 1000 ml IV at 1 bolus Per protocol; 1000 mL bolus Route: IV; Rate: 1 aa5 bolus; Site: right forearm; 13:39 Follow up: IV Status: Completed infusion; IV Intake: 1000ml aa5 13:39 Drug: fentaNYL (PF) IVP 25 mcg IVP once Route: IVP; Site: right forearm; aa5 14:05 Drug: Pantoprazole IVP 40 mg IVP once Route: IVP; Site: right forearm; aa5 Disposition Summary: 08/05/23 12:33 Hospitalization Ordered Notes: Hospitalization Status: Inpatient Admission rt Provider: Lucas Phillips rt Location: Telemetry/MedSurg (Inpatient) rt Condition: Fair rt Problem: new rt Symptoms: have improved rt Bed/Room Type: Standard rt Room Assignment: 228(08/05/23 14:36) iw Diagnosis - Hypotension, unspecified rt Forms: - Medication Reconciliation Form rt - SBAR form rt - Leadership Thank You Letter rt Signatures: Dispatcher [employer] Renea Garza, RN RN iw Kate Garcia RN RN aa5 Beth Diggs, MOTION GRAPHICS ARTIST MOTION GRAPHICS ARTIST [id number] Araseli Delatorre RN RN mb9 Miah Hickey MD MD rt Abel Porter RN RN tm6 Corrections: (The following items were deleted from the chart) 10:22 10:21 PMHx: Diabetes - NIDDM; mb9 mb9 14:36 12:33 rt iw
--- NOTE | 2023-08-05 12:34 | ER ---
Nurse's Notes [facility] Name: Michael Grant Age: 77 yrs Sex: Male : 1945 Arrival Date: 08/05/2023 Time: 10:16 Bed 3 Private MD: Diagnosis: Hypotension, unspecified Presentation: 08/05 10:20 Chief complaint: Patient states: "I've been SOB for a few days and the chest pain mb9 started last night. It feels like a sharp stabbing. I have a little bit of nausea. I feel weaker than normal.". Coronavirus screen: Vaccine status: Patient reports receiving the 2nd dose of the covid vaccine. Ebola Screen: No symptoms or risks identified at this time. Initial Sepsis Screen: Does the patient meet any 2 criteria? No. Patient's initial sepsis screen is negative. Does the patient have a suspected source of infection? No. Patient's initial sepsis screen is negative. Risk Assessment: Do you want to hurt yourself or someone else? Patient reports no desire to harm self or others. Onset of symptoms was August 05, 2023. 10:20 Method Of Arrival: Wheelchair mb9 10:20 Acuity: LEIF 2 mb9 Triage Assessment: 10:22 General: Appears uncomfortable, Behavior is calm, cooperative. Pain: Complains of pain mb9 in chest Pain currently is 2 out of 10 on a pain scale. Quality of pain is described as sharp, stabbing. EENT: No signs and/or symptoms were reported regarding the EENT system. Neuro: Level of Consciousness is awake, alert, obeys commands, Oriented to person, place, time, situation, Appropriate for age Reports dizziness. Cardiovascular: Reports chest pain, shortness of breath. Respiratory: Reports shortness of breath. Derm: Skin is pink, warm \\T\\ dry. Historical: - Allergies: 10:21 No Known Allergies; mb9 - Home Meds: 12:43 famotidine 40 mg Oral tablet [Active]; hydroxychloroquine 200 mg oral tablet 2 times aa5 per day [Active]; pantoprazole oral 30mg once [Active]; montelukast 10 mg oral tablet once [Active]; atorvastatin 40 mg oral tablet once [Active]; prednisone 5 mg Oral tablet once [Active]; sucralfate 1 gram Oral tablet once [Active]; Orencia (with maltose) intravenous every 4 weeks [Active]; docusate sodium 50 mg Oral capsule 2 times per day [Active]; simethicone 125 mg Oral capsule 2 times per day [Active]; 12:52 Methimazole Oral [Active]; aa5 - PMHx: 10:21 Anemia; Myocardial infarction; High Cholesterol; Headaches; GERD; Rheumatoid Arthritis; mb9 12:52 thyroid problem; aa5 - PSHx: 10:21 cardiac stents X 5; kyphoplasty; mb9 - Immunization history:: Adult Immunizations up to date. - Social history:: Smoking status: Patient denies any tobacco usage or history of. - Family history:: not pertinent. Screenin:30 [facility] ED Fall Risk Assessment (Adult) History of falling in the last 3 months, ld1 including since admission No falls in past 3 months (0 pts). Abuse screen: Denies threats or abuse. Denies injuries from another. Nutritional screening: No deficits noted. Tuberculosis screening: No symptoms or risk factors identified. Assessment: 10:30 General: Appears in no apparent distress. comfortable, Behavior is calm, cooperative, ld1 appropriate for age. Pain: Complains of pain in chest Pain does not radiate. Pain currently is 8 out of 10 on a pain scale. Quality of pain is described as heavy, pressure, Pain began 1 day ago. Is intermittent. Neuro: Level of Consciousness is awake, alert, obeys commands, Oriented to person, place, time, situation. Cardiovascular: Capillary refill < 3 seconds Patient's skin is warm and dry. Respiratory: Airway is patent Respiratory effort is even. GI: Abdomen is flat, non-distended. : No signs and/or symptoms were reported regarding the genitourinary system. EENT: No signs and/or symptoms were reported regarding the EENT system. Derm: Skin is pale. Musculoskeletal: No signs and/or symptoms reported regarding the musculoskeletal system. 10:30 Reassessment: Warm blankets given for comfort. . aa5 10:32 Reassessment: ERP at bedside assessing patient. ld1 11:57 Reassessment: Notified ERP of BP. tm6 11:57 Reassessment: Pt sleeping, easy to awaken to verbal stimuli, states no complaints at aa5 this time. . 13:19 Reassessment: No changes from previously documented assessment. Patient and/or family tm6 updated on plan of care and expected duration. Pain level reassessed. 13:30 Reassessment: Pt c/o increased chest pain at this time, rates 6/10 on a pain scale, MD brewster was notified. . 13:39 Neuro: Level of Consciousness is awake, alert, obeys commands, Oriented to person, aa5 place, time, situation. Respiratory: Airway is patent Respiratory effort is even, unlabored, Respiratory pattern is regular, symmetrical. Derm: Skin is dry, Skin is pale, Skin temperature is warm. 13:39 Cardiovascular: Rhythm is sinus bradycardia. aa5 13:40 Reassessment: Pt states "I burped and my chest pain felt better but now I have aa5 indigestion", MD was notified. . 14:10 Neuro: Level of Consciousness is awake, alert, obeys commands, Oriented to person, aa5 place, time, situation. Respiratory: Airway is patent Respiratory effort is even, unlabored, Respiratory pattern is regular, symmetrical. Derm: Skin is dry, Skin is pale, Skin temperature is warm. 14:10 General: Appears comfortable. aa5 15:40 Reassessment: Dr. Hickey notified of patient's vital signs. Hospitalist notified. tm6 Hospitalist stated he is coming to bedside to assess. Vital Signs: 10:20 BP 92 / 53; Pulse 73; Resp 16; Temp 97.2; Pulse Ox 100% ; Weight 72.57 kg; Height 5 ft. mb9 9 in. ; Pain 2/10; 10:30 BP 114 / 47; Pulse 66; Resp 16; Pulse Ox 100% on R/A; Weight 72.57 kg; ld1 11:57 BP 97 / 49; Pulse 57; Resp 18; Pulse Ox 100% ; tm6 12:08 BP 89 / 44; Pulse 57; Resp 18; Pulse Ox 100% ; tm6 12:22 BP 93 / 32; Pulse 55; Resp 16 S; Pulse Ox 100% on R/A; aa5 12:30 BP 91 / 61; Pulse 57; Resp 16 S; Pulse Ox 100% on R/A; aa5 12:42 BP 87 / 44; Pulse 58; Resp 18 S; Pulse Ox 100% on R/A; aa5 12:44 BP 93 / 42; Pulse 56; Resp 17; Pulse Ox 100% on R/A; tm6 12:57 BP 90 / 39; Pulse 56; Resp 17 S; Pulse Ox 100% on R/A; aa5 13:19 BP 110 / 63; Pulse 61; Resp 22; Pulse Ox 100% ; tm6 13:25 BP 115 / 49; Pulse 62; Resp 16 S; Pulse Ox 100% on R/A; aa5 13:35 BP 109 / 48; Pulse 59; Resp 17 S; Pulse Ox 100% on R/A; aa5 13:55 BP 102 / 51; Pulse 59; Resp 16 S; Pulse Ox 100% on R/A; aa5 14:57 BP 115 / 56; Pulse 69; Resp 18; Pulse Ox 98% on R/A; ld1 15:20 BP 95 / 53; Pulse 60; Resp 17; Pulse Ox 99% on R/A; tm6 10:20 Body Mass Index 23.63 (72.57 kg, 175.26 cm) mb9 10:20 Pain Scale: Adult mb9 ED Course: 10:20 Patient arrived in ED. mb9 10:21 Triage completed. mb9 10:21 Miah Hickey MD is Attending Physician. rt 10:22 Arm band placed on. mb9 10:30 Patient has correct armband on for positive identification. Placed in gown. Bed in low ld1 position. Call light in reach. Side rails up X2. night monitor on. Pulse ox on. NIBP on. Door closed. Noise minimized. Warm blanket given. 10:37 Kate Garcia, RN is Primary Nurse. aa5 10:45 Inserted saline lock: 20 gauge in right wrist, using aseptic technique. Blood collected.ds4 11:11 XRAY Chest (1 view) In Process Unspecified. EDMS 12:33 Lucas Phillips MD is Hospitalizing Provider. rt 15:56 No provider procedures requiring assistance completed. Patient admitted, IV remains in aa5 place. Administered Medications: 10:45 Drug: NS 0.9% IV 500 ml IV at bolus once Route: IV; Rate: bolus; Site: right forearm; aa5 11:15 Follow up: IV Status: Completed infusion; IV Intake: 500ml aa5 12:02 Drug: NS 0.9% IV 500 ml IV at bolus once Route: IV; Rate: bolus; Site: right forearm; tm6 13:40 Follow up: IV Status: Completed infusion; IV Intake: 500ml aa5 12:31 Drug: Solu-CORTEF IVP 100 mg IVP once Route: IVP; Site: right forearm; aa5 13:02 Follow up: Response: No adverse reaction aa5 13:04 Drug: NS 0.9% IV 1000 ml IV at 1 bolus Per protocol; 1000 mL bolus Route: IV; Rate: 1 aa5 bolus; Site: right forearm; 13:39 Follow up: IV Status: Completed infusion; IV Intake: 1000ml aa5 13:39 Drug: fentaNYL (PF) IVP 25 mcg IVP once Route: IVP; Site: right forearm; aa5 14:05 Drug: Pantoprazole IVP 40 mg IVP once Route: IVP; Site: right forearm; aa5 Medication: 15:57 VIS not applicable for this client. aa5 Intake: 11:15 IV: 500ml; Total: 500ml. aa5 13:39 IV: 1000ml; Total: 1500ml. aa5 13:40 IV: 500ml; Total: 2000ml. aa5 Outcome: 12:33 Decision to Hospitalize by Provider. rt 15:56 Admitted to Med/surg accompanied by tech, via stretcher, room 228, Report called to aa5 MIKE Hill 15:56 Condition: unchanged 15:56 Instructed on the need for admit, 16:12 Patient left the ED. aa5 Signatures: Dispatcher [employer] EDMS Kate Garcia RN RN aa5 Franc Velázquez ds4 Shavon Moreno RN RN Araseli Hernandez RN RN mb9 Miah Hickey MD MD rt Abel Porter RN RN tm6 Corrections: (The following items were deleted from the chart) 10:22 10:21 PMHx: Diabetes - NIDDM; mb9 mb9 10:23 10:20 BP 97 / 58; Pulse 73bpm; Resp 16bpm; Pulse Ox 100%; Temp 97.2F; 72.57 kg; Height mb9 5 ft. 9 in.; BMI: 23.6; Pain 2/10, Adult; mb9 10:23 10:20 Acuity: LEIF 3 mb9 mb9 10:54 10:10 NS 0.9% IV 500 ml IV at bolus in right forearm aa5 aa5 13:40 12:30 IV Status: Completed infusion aa5 aa5
[2023-08-05] MEDS ORDERED: HYDROCORTISONE SUC 100 MG INJ ONE (12:43)
[2023-08-05] MEDS ORDERED: ACETAMINOPHEN 325 MG TABLET PO PRN (13:11)
[2023-08-05] MEDS ORDERED: ALBUTEROL 2.5 MG/3 ML NEB SOL NEB PRN ×2 (13:15→14:00)
[2023-08-05] MEDS ORDERED: NA CHLORIDE 0.9% 1,000 ML ONE (13:15)
[2023-08-05] MEDS ORDERED: ONDANSETRON 4 MG/2 ML VIAL IV PRN (13:15)
--- NOTE | 2023-08-05 13:16 | P.HP ---
Certification for Inpatient Patient admitted to: Observation With expected LOS: <2 Midnights Patient will require the following post-hospital care: None Practitioner: I am a practitioner with admitting privileges, knowledge of patient current condition, hospital course, and medical plan of care. Services: Services provided to patient in accordance with Admission requirements found in Title 42 Section 412.3 of the Code of Federal Regulations Patient History Date of Service: 08/05/23 Reason for admission: Chest pain, Weakness History of Present Illness: Patient is a 77-year-old male with a past medical history significant for anemia, MT, hyperlipidemia, headache, GERD, rheumatoid arthritis who presents with complaint of left-sided chest pain that has been ongoing periodically for quite some time now. Patient indicated that last night he started feeling the pain again. Patient rated pain as 3/10 in severity and described pain as press ure in quality. Patient also reports worsening generalized weakness in the last 3 week. Patient reported associated signs and symptoms of shortness of breath, poor appetite, bilateral lower extremity edema and fatigue. Patient denies any other signs and symptoms. Symptoms are aggravated or relieved by nothing. Patient decided to present to the hospital due to worsening symptoms. Allergies No Known Allergies Allergy (Verified 09/28/22 20:43) Home Medications: Aspirin Chewable [Aspirin Chewable*] 81 mg PO DAILY 09/28/22 Atorvastatin Calcium 40 mg PO DAILY 09/28/22 Docusate [Colace Cap*] 50 mg PO DAILY 09/28/22 Famotidine [Pepcid*] 40 mg PO BEDTIME 09/28/22 Hydroxychloroquine [Plaquenil*] 200 mg PO BID 09/28/22 Montelukast Sodium 10 mg PO BEDTIME 09/28/22 Pantoprazole [Protonix Tab*] 40 mg PO DAILY 09/28/22 Sucralfate [Carafate*] 1 g PO DAILY PRN 09/28/22 predniSONE [Prednisone*] 5 mg PO SEECOM 09/28/22 - Past Medical/Surgical History Diabetic: No -: shingles -: heart attack 8 yrs ago -: gerd -: HLD -: Lupus -: RA -: stent placement X2 but has a total of 3 stents - Family History Family History: Reviewed- Non-Contributory - Social History Smoking Status: Never smoker Alcohol use: No CD- Drugs: No Caffeine use: Yes Place of Residence: Home Review of Systems General: Weakness, Other (Fatigue), Unremarkable (Poor appetite ) Eyes: Unremarkable ENT: Unremarkable Respiratory: Shortness of Breath Cardiovascular: Chest Pain Gastrointestinal: Unremarkable Genitourinary: Unremarkable Musculoskeletal: Other (BLE edema) Integumentary: Unremarkable Neurological: Unremarkable Lymphatics: Unremarkable Physical Examination - Physical Exam General: Alert, In no apparent distress, Oriented x3 HEENT: Atraumatic, PERRLA, Mucous membr. moist/pink, EOMI, Sclerae nonicteric Neck: Supple, 2+ carotid pulse no bruit, No LAD, Without JVD or thyroid abnormality Respiratory: Normal air movement, Diminished Cardiovascular: Regular rate/rhythm, Normal S1 S2, Edema Capillary refill: <2 Seconds Gastrointestinal: Normal bowel sounds, Soft and benign, No tenderness Musculoskeletal: No clubbing, No tenderness Integumentary: No rashes Neurological: Normal speech, Normal tone, Normal affect Lymphatics: No axilla or inguinal lymphadenopathy - Studies Laboratory Data (last 24 hrs) 08/05/23 08/05/23 10:42 10:42 WBC 4.90 Hgb 8.4 L Hct 25.0 L Plt Count 145 L Sodium 136 Potassium 3.8 BUN 12 Creatinine 0.81 Glucose 110 H Magnesium 2.2 Total Bilirubin 0.6 AST 9 L ALT 14 L Alkaline Phosphatase 72 Assessment and Plan - Plan -- Chest pain. Likely atypical. Serial troponins negative. Cardiology consulted. Echocardiogram pending to assess cardiac structures and functions. Will await further recommendation from miller head wet process. --Generalized weakness. CT head did not indicate any acute intracranial abnormality. PT eval and treat. -- Hyperlipidemia. Continue statin. --History of MT\CAD. Continue aspirin and statin. --GERD. Continue Protonix. --Rheumatoid arthritis\Lupus. Continue home medications. --Anemia of chronic disease. H&H stable. We will continue to monitor hemoglobin and transfuse if less than 7.0. --Bilateral lower extremity edema. Echocardiogram to rule out CHF. Continue supportive care. -- Hypotension. Family reported that patient has a history of hypotension . We will continue to monitor blood pressure levels. --DVT prophylaxis with Lovenox subQ. Discharge Plan: Home Plan to discharge in: 48 Hours - Advance Directives Does patient have a Living Will: No Does patient have a Durable POA for Healthcare: No - Code Status/Comfort Care Code Status Assessed: Yes Physician Review: Patient Assessed, Agree with Above Assessment and Plan Critical Care: No
[2023-08-05] MEDS ORDERED: FENTANYL CITR 100 MCG/2 ML ONE (13:48)
[2023-08-05] MEDS ORDERED: PANTOPRAZOLE 40 MG INJ ONE (14:18)
--- NOTE | 2023-08-05 15:36 | RAD REPORT ---
EXAM DESCRIPTION: CT - Head Brain Wo Cont - 08/05/2023 3:10 pm CLINICAL HISTORY: Generalized weakness Headache, hypertension COMPARISON: <Comparisons> TECHNIQUE: All CT scans are performed using dose optimization technique as appropriate and may inclu de automated exposure control or mA/KV adjustment according to patient size. FINDINGS: No intracranial hemorrhage, hydrocephalus or extra-axial fluid collection.Mild brain atrop hy.No areas of brain edema or evidence of midline shift. Left vertebral atherosclerosis. The paranasal sinuses and mastoids are clear. The calvarium is intact. IMPRESSION: No acute intracranial abnormality.
[2023-08-05] MEDS: ENOXAPARIN 40 MG/0.4 ML SQ SCH (18:14)
[2023-08-05 18:35] VITALS: BMI 23.6
[2023-08-05 19:52] LABS: Magnesium 2.1 mg/dL (1.6-2.4); Phosphorus 2.5 mg/dL (2.5-4.9); Thyroid Stimulating Hormone < 0.005 uIU/mL (0.358-3.740)
[2023-08-05 19:53] LABS: Specific Gravity 1.015 (1.005-1.030); Urine Bacteria None Seen /HPF (<20); Urine Bilirubin NEGATIVE (Negative); Urine Blood Negative (Negative); Urine Clarity Clear (Clear); Urine Color Light-Yellow (Yellow); Urine Crystals Unidentified Few /HPF (None Seen); Urine Glucose NEGATIVE (Negative); Urine Mucus Slight /HPF (None Seen); Urine Protein TRACE (Negative); Urine RBC <5 /HPF (None Seen); Urine Urobilinogen Normal (Normal)
[2023-08-05] MEDS: MONTELUKAST 10 MG TAB PO SCH (20:56)
[2023-08-05] MEDS: ATORVASTATIN 40 MG TAB PO SCH (20:56)
[2023-08-05] MEDS ORDERED: FAMOTIDINE 20 MG TAB PO SCH (21:00)
[2023-08-05] MEDS: HYDROXYCHLOROQUINE 200MG TAB PO SCH (21:00)
[2023-08-05] MEDS ORDERED: ACETAMINOPHEN 500 MG TAB PO PRN (23:42)
[2023-08-06 03:23] LABS: Absolute Lymphocytes (CBC) 1.1 K/uL (0.7-4.9); Hematocrit 19.8 % (39.6-49.0); Lymphocytes % 39.6 % (15.3-44.8); MPV 10.3 fL (7.6-11.3); Platelets 123 thou/uL (152-406); RBC Red Blood Cell Count 1.88 M/uL (4.33-5.43)
[2023-08-06] MEDS ORDERED: SUCRALFATE 1 GM TABLET PO PRN (03:32)
[2023-08-06 03:39] LABS: Potassium 3.3 mEq/L (3.5-5.1)
[2023-08-06 03:54] LABS: MCV 105.4 fL (80-100)
[2023-08-06] MEDS ORDERED: ASPIRIN 81 MG CHEWABLE TABLET PO SCH (09:00)
[2023-08-06] MEDS ORDERED: POTASSIUM 25 MEQ EFFERV TAB PO ONE (09:00)
[2023-08-06] MEDS: ASPIRIN 81 MG CHEWABLE TABLET PO SCH (09:20)
[2023-08-06] MEDS: DOCUSATE NA 100 MG CAP PO SCH (09:20)
[2023-08-06] MEDS: ENOXAPARIN 40 MG/0.4 ML SQ SCH (09:20)
[2023-08-06] MEDS: PANTOPRAZOLE 40MG TABLET PO SCH (09:20)
[2023-08-06] MEDS: HYDROXYCHLOROQUINE 200MG TAB PO SCH ×2 (09:21→21:08)
[2023-08-06] MEDS ORDERED: POTASSIUM CL SA 10 MEQ TAB PO ONE (10:58)
[2023-08-06 12:11] LABS: Absolute Lymphocytes (CBC) 0.8 K/uL (0.7-4.9); Hematocrit 20.2 % (39.6-49.0); Lymphocytes % 28.5 % (15.3-44.8); MCV 105.2 fL (80-100); MPV 9.6 fL (7.6-11.3); Platelets 130 thou/uL (152-406); RBC Red Blood Cell Count 1.92 M/uL (4.33-5.43)
[2023-08-06 14:20] LABS: Blood Morphology Comment NOTED (NOT SEEN); Macrocytosis 1+; Platelet Estimate DECR; Platelets, Giant PRESENT
[2023-08-06] MEDS ORDERED: NA CHLORIDE 0.9% 250 ML IV SCH (15:00)
--- NOTE | 2023-08-06 16:00 | P.PN ---
Subjective Date of Service: 08/06/23 Chief Complaint: Chest pain, Weakness Subjective: Improving, New changes Patient seen at bedside. Patient continues to complain of fatigue and weakness. Continue supportive care. Review of Systems General: Weakness, Other (fatigue ) Eyes: Unremarkable ENT: Unremarkable Respiratory: Unremarkable Cardiovascular: Unremarkable Gastrointestinal: Unremarkable Genitourinary: Unremarkable Musculoskeletal: Unremarkable Integumentary: Unremarkable Neurological: Unremarkable Lymphatics: Unremarkable Physical Examination - Vital Signs Temperature: 98.4 F Blood Pressure: 101/53 Pulse: 59 Respirations: 16 Pulse Ox (%): 98 - Physical Exam General: Alert, In no apparent distress, Oriented x3, Cooperative HEENT: Atraumatic, PERRLA, EOMI Neck: Supple, JVD not distended Respiratory: Clear to auscultation bilaterally, Normal air movement Cardiovascular: Regular rate/rhythm, Normal S1 S2, Edema Capillary refill: <2 Seconds Gastrointestinal: Normal bowel sounds, Soft and benign, No tenderness Musculoskeletal: No clubbing, No tenderness Integumentary: No rashes, No significant lesion Neurological: Normal speech, Normal tone, Normal affect Lymphatics: No axilla or inguinal lymphadenopathy - Studies Laboratory Data (last 24 hrs) 08/06/23 08/06/23 08/06/23 11:55 02:23 02:23 WBC 2.70 L 2.80 L Hgb 6.8 L 6.7 L D Hct 20.2 L 19.8 L Plt Count 130 L 123 L Sodium 139 Potassium 3.3 L D BUN 12 Creatinine 0.61 L Glucose 98 Phosphorus Magnesium Triglycerides 74 Cholesterol 80 HDL Cholesterol 31 L Cholesterol/HDL Ratio 2.58 08/05/23 19:17 WBC Hgb Hct Plt Count Sodium Potassium BUN Creatinine Glucose Phosphorus 2.5 Magnesium 2.1 Triglycerides Cholesterol HDL Cholesterol Cholesterol/HDL Ratio Assessment And Plan - Plan Assessment and Plan 08/06/23 -- Symptomatic anemia. Likely secondary to iron deficiency anemia. Patient's hemoglobin noted to be 6.7. Repeat levels indicates a level of 6.8. 1 units of PRBC ordered. Iron studies pending. We will continue to monitor H&H. --Chest pain. Likely atypical. Serial troponins negative. Patient seen by flight paramedic. Recommends that patient follow-up with his outpatient flight paramedic. Echocardiogram pending to assess cardiac structures and function. --Moderate protein calorie malnutrition. Dietitian consulted. Will await further recommendations. --DVT prophylaxis with Lovenox subQ. - Plan -- Chest pain. Likely atypical. Serial troponins negative. Cardiology consulted. Echocardiogram pending to assess cardiac structures and functions. Will await further recommendation from flight paramedic. --Generalized weakness. CT head did not indicate any acute intracranial abnormality. PT eval and treat. -- Hyperlipidemia. Continue statin. --History of NH\CAD. Continue aspirin and statin. --GERD. Continue Protonix. --Rheumatoid arthritis\Lupus. Continue home medications. --Anemia of chronic disease. H&H stable. We will continue to monitor hemoglobin and transfuse if less than 7.0. --Bilateral lower extremity edema. Echocardiogram to rule out CHF. Continue supportive care. -- Hypotension. Family reported that patient has a history of hypotension . We will continue to monitor blood pressure levels. --DVT prophylaxis with Lovenox subQ. Discharge Plan: Home Plan to discharge in: 48 Hours - Code Status/Comfort Care Code Status Assessed: Yes Physician Review: Patient Assessed, Agree with Above Assessment and Plan Critical Care: No
[2023-08-06] MEDS: ATORVASTATIN 40 MG TAB PO SCH (17:22)
[2023-08-06 17:53] LABS: Ferritin 896.6 ng/mL (26-388)
[2023-08-06] MEDS ORDERED: NA CHLORIDE 0.9% 250 ML ONE (21:06)
[2023-08-06] MEDS: MONTELUKAST 10 MG TAB PO SCH (21:08)
[2023-08-07 04:13] LABS: Absolute Lymphocytes (CBC) 1.3 K/uL (0.7-4.9); Hematocrit 24.4 % (39.6-49.0); Lymphocytes % 31.7 % (15.3-44.8); MCV 101.7 fL (80-100); MPV 10.4 fL (7.6-11.3); Platelets 153 thou/uL (152-406)
[2023-08-07 04:39] LABS: Potassium 3.8 mEq/L (3.5-5.1)
[2023-08-07] MEDS: PANTOPRAZOLE 40MG TABLET PO SCH (08:06)
[2023-08-07] MEDS: ASPIRIN 81 MG CHEWABLE TABLET PO SCH (08:06)
[2023-08-07] MEDS: HYDROXYCHLOROQUINE 200MG TAB PO SCH (08:06)
[2023-08-07] MEDS: DOCUSATE NA 100 MG CAP PO SCH (08:06)
[2023-08-07] MEDS: ENOXAPARIN 40 MG/0.4 ML SQ SCH ×2 (08:45→09:00)
[2023-08-07 09:42] VITALS: O2SAT 96
--- NOTE | 2023-08-07 11:16 | P.DS ---
Admission Date: 08/06/23 Discharge Date: 08/07/23 Discharge Condition: GOOD Reason for Admission: Chest pain, Weakness Consultations: Guide Winder Brief History of Present Illness: Patient is a 77-year-old male with a past medical history significant for anemia, [place], hyperlipidemia, headache, GERD, rheumatoid arthritis who presents with complaint of left-sided chest pain that has been ongoing periodically for quite some time now. Patient indicated that last night he started feeling the pain again. Patient rated pain as 3/10 in severity and described pain as pressure in quality. Patient also reports worsening generalized weakness in the last 3 week. Patient reported associated signs and symptoms of shortness of breath, poor appetite, bilateral lower extremity edema and fatigue. Patient denies any other signs and symptoms. Symptoms are aggravated or relieved by nothing. Patient decided to present to the hospital due to worsening symptoms. Vital Signs/Physical Exam: Temp Pulse Resp BP Pulse Ox 97.4 F 64 16 122/57 L 97 08/07/23 08:00 08/07/23 08:00 08/07/23 08:00 08/07/23 08:00 08/07/23 08:00 Laboratory Data at Discharge: WBC 4.10 thou/uL (4.3-10.9) L 08/07/23 03:11 Hgb 8.3 g/dL (13.6-17.9) L D 08/07/23 03:11 Hct 24.4 % (39.6-49.0) L 08/07/23 03:11 Plt Count 153 thou/uL (152-406) 08/07/23 03:11 Sodium 135 mEq/L (136-145) L 08/07/23 03:11 Potassium 3.8 mEq/L (3.5-5.1) 08/07/23 03:11 BUN 14 mg/dL (7-18) 08/07/23 03:11 Creatinine 0.74 mg/dL (0.70-1.30) 08/07/23 03:11 Glucose 94 mg/dL (74-106) 08/07/23 03:11 Phosphorus 2.5 mg/dL (2.5-4.9) 08/05/23 19:17 Magnesium 2.1 mg/dL (1.6-2.4) 08/05/23 19:17 Total Bilirubin 0.6 mg/dL (0.2-1.0) 08/05/23 10:42 AST 9 U/L (15-37) L 08/05/23 10:42 ALT 14 U/L (16-61) L 08/05/23 10:42 Alkaline Phosphatase 72 U/L (45-117) 08/05/23 10:42 Triglycerides 74 mg/dL (<150) 08/06/23 02:23 Cholesterol 80 mg/dL (<200) 08/06/23 02:23 HDL Cholesterol 31 mg/dL (40-60) L 08/06/23 02:23 Cholesterol/HDL Ratio 2.58 08/06/23 02:23 Home Medications: Aspirin Chewable [Aspirin Chewable*] 81 mg PO DAILY 09/28/22 Atorvastatin Calcium 40 mg PO DAILY 09/28/22 Docusate [Colace Cap*] 50 mg PO DAILY 09/28/22 Famotidine [Pepcid*] 40 mg PO BEDTIME 09/28/22 Hydroxychloroquine [Plaquenil*] 200 mg PO BID 09/28/22 Montelukast Sodium 10 mg PO BEDTIME 09/28/22 Pantoprazole [Protonix Tab*] 40 mg PO DAILY 09/28/22 Sucralfate [Carafate*] 1 g PO DAILY PRN 09/28/22 predniSONE [Prednisone*] 5 mg PO SEECOM 09/28/22 Diet: Regular Activity: Weight bearing as tolerated Followup: Avelino Acosta MD [Primary Care Provider] -
[2023-08-07 12:16] VITALS: BP 108/55; TEMP 98.2
--- NOTE | 2023-08-07 16:56 | EKG ---
Test Date: 2023-08-05 Test Time: 13:34:39 Telecommunications Professional: SUKHJINDER MEASUREMENT RESULTS: Intervals: Rate: 59 WV: 156 QRSD: 104 QT: 472 QTc: 467 [place]: P: 52 WV: 156 QRS: -50 T: 47 INTERPRETIVE STATEMENTS: Sinus bradycardia Left anterior fascicular block Nonspecific ST abnormality Abnormal ECG Compared to ECG 12/17/2022 15:29:46 ST (T wave) deviation now present Electronically Signed On 08-07-23 16:52:00 MACHINE HELPER by Leander Veras
--- NOTE | 2023-08-07 16:57 | EKG ---
Test Date: 2023-08-05 Test Time: 10:31:15 Linux Systems Engineer: SUKHJINDER MEASUREMENT RESULTS: Intervals: Rate: 64 ID: [id number] QRSD: 104 QT: 434 QTc: 447 [place]: P: 17 ID: [id number] QRS: -54 T: 50 INTERPRETIVE STATEMENTS: Normal sinus rhythm Left anterior fascicular block Nonspecific ST abnormality Abnormal ECG Compared to ECG 12/17/2022 15:29:46 ST (T wave) deviation now present Sinus bradycardia no longer present Electronically Signed On 08-07-23 16:52:15 HARBOR MASTER by Leander Veras
== END 2023-08-07 12:20 | disposition home or self-care (01) | DRG 812 ==
LOC: ER 10:16 → ERHOLD 13:57 → 2ND 15:24 → OBSVTOIN 08-06 12:11
PROVIDERS: ADMIT Internal Medicine Nephrology; ATTEND Internal Medicine Nephrology
PROC: 30233N1 Transfusion of Nonautologous Red Blood Cells into Peripheral Vein, Percutaneous Approach (ICD-10-PCS; principal; 2023-08-06)
DX: D50.9 Iron deficiency anemia, unspecified (principal); E44.0 Moderate protein-calorie malnutrition; E78.00 Pure hypercholesterolemia, unspecified; M06.9 Rheumatoid arthritis, unspecified; I95.9 Hypotension, unspecified; D63.8 Anemia in other chronic diseases classified elsewhere; K21.9 Gastro-esophageal reflux disease without esophagitis; I25.10 Atherosclerotic heart disease of native coronary artery without angina pectoris; I25.2 Old myocardial infarction; R07.89 Other chest pain; R60.9 Edema, unspecified; Z95.5 Presence of coronary angioplasty implant and graft; Z79.82 Long term (current) use of aspirin; Z79.52 Long term (current) use of systemic steroids; Z68.23 Body mass index [BMI] 23.0-23.9, adult; Z79.899 Other long term (current) drug therapy
CPT/HCPCS: 36415; 70450; 71045; 80048; 80061; 80076; 81001; 82728; 82947; 83540; 83735; 84100; 84132; 84439; 84443; 84466; 84484; 85025; 86850; 86900; 86901; 86920; 93005; 93306; 96361; 96374; 96375; 97116; 97161; 97530; 99285; C9113; J1650; J1720; J3010; J7030; J7040; J7050; P9016

== ENCOUNTER 2023-08-12 07:34 | Observation (INO) | payer OTHER ==
--- OUTSIDE RECORDS SUMMARY | 2023-08-12 07:40 | XMS REPORT | Continuity of Care Document ---
:1945 Author Organization [facility] t Address [address] [facility] [address] [place] [address] Care Team Providers Name Role Phone Avelino [...] Date Expiration Date S sunita AEKARI (MEDICARE [id number] 2022 REPLACEMENT PPO) 00:00:00 Problems Condition Condition [...] 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 Active [facility] artery artery 00:00: Hospita 00 l R05 - R05 - Diagnosis Active 2018-092019-08-18 Mem [facility]ria COUGH COUGH 2- 11:53:00 l Active 00:01: [place] 08/18/2019 00 SUNDAY [place] C34.31 C34.31 Diagnosis Active 2019-04-11 Ga moria MALIGNANT MALIGNANT 04-06 12:47:00 l NEOPLASM NEOPLASM 00:00: Humza n OF LOWER OF LOWER 00 LOBE, LOBE, Active 04/06/2019 [place] CAP, FEVER CAP, Diagnosis Active 2019-02-12 [place] FEVER 5-28 13:40:00 l Active 00:00: [place] 02/10/2019 [facility] [place] FLUID ON FLUID ON Diagnosis Active 2019-02-10 Memoria LUNGS LUNGS 5-28 20:50:00 l Active 00:00: [place] 02/10/2019 [facility] [place] Pneumonia, Pneumonia Problem 2019-02-15 [place] unspecifie , 22:27:14 l d organism unspecifie He rmann d organism 9 [facility] [place] [facility] MALIGNANT MALIGNANT Diagnosis Active 2019-04-11 Memoria NEOPLASM NEOPLASM 12:47:00 l OF LOWER OF LOWER Humza n LOBE, LOBE, RIGHT RIGHT Active [facility] PNEUMONIA, PNEUMONIA Diagnosis Active 2019-02-12 Memoria UNSPECIFIE , 13:40:00 l D ORGANISM UNSPECIFIE He rmtaylor D ORGANISM Active [facility] [place] [place] FEVER, FEVER, Diagnosis Active 2019-02-12 Me moria UNSPECIFIE UNSPECIFIE 13:40:00 l D D Active [facility] History of Past Illness Condition Condition Condition Status Onset Resolution Last Treating Co mments Source Name Details Category Date Date Treatment Clinician Date Pleural Pleural Problem 2018-2019-02-15 2019-02-15 Memoria effusion, effusion, 02-10 22:27:14 22:27:14 l not not 17:00: [place] elsewhere elsewhere 00 classified classified 02/10/2019 02/15/2019 [facility] [place] [facility] Other Other Problem 2018-2019-02-15 2019-02-15 M emoria fatigue fatigue 02-10 22:27:14 22:27:14 l 02/10/2019 17:00: Humza n 02/15/2019 00 [facility] [place] [facility] Chest Chest Problem 2018-2019-02-15 2019-02-15 M emoria pain, pain, 02-10 22:27:14 22:27:14 l unspecifie unspecifie 17:00: He rmann d d 00 02/10/2019 02/15/2019 [facility] [place] [facility] Allergies, Adverse Reactions, Alerts This patient has no known allergies or adverse reactions. Social History Social Habit Start Date Stop Date Quantity Comments Source History of tobacco Current smoker [facility] Alcohol intake 2021-01-06 2021-01-06 Ex-drinker [facility] 00:00:00 00:00:00 (finding) Hospital History of Social 2021-01-06 2021-01-[address] function 00:00:00 00:00:00 Hospital Tobacco use and 2020-11-29 2020-11-29 Smokeless [facility] exposure 00:00:00 00:00:00 tobacco non-user Hospital Social History 2019-02-11 2019-02-11 [facility] ermtaylor 02:14:42 02:14:42 Sex Ass[birth year] At [birth year] [facility] 00:00:00 00:00:00 Hospital Smoking Status Start Date Stop Date Source Former Smoker Melanie gonzalez Sports [facility] Medications Ordered Filled Start Stop Current Ordering Indication Dosage Frequency Signature Comments Components Source Medication Medication Date Date Medication? Clinician (SIG) Name Name atorvastati Yes [id number] TAKE 1 [facility] (LIPITOR) 9-[address] 40 mg 00:00: MOUTH [facility]ospita tablet 00 EVERY DAY l atorvastati 0 Yes [id number] TAKE 1 [facility] (LIPITOR) 9-[address] 40 mg 00:00: MOUTH [facility]ospita tablet 00 EVERY DAY l atorvastati 0 Yes [id number] TAKE 1 [facility] (LIPITOR) 9-[address] 40 mg 00:00: MOUTH [facility]ospita tablet 00 EVERY DAY l atorvastati 0 Yes [id number] TAKE 1 [facility] (LIPITOR) 9-[address] 40 mg 00:00: MOUTH [facility]ospita tablet 00 EVERY DAY l atorvastati 0 Yes [id number] TAKE 1 [facility] (LIPITOR) 9-[address] 40 mg 00:00: MOUTH [facility]ospita tablet 00 EVERY DAY l predniSONE 0 Yes 5mg QD Take 1 Metho di (DELTASONE) -05 tablet (5 st 5 mg tablet 11:34: mg total) H ospita 39 by mouth l daily. lansoprazol 0 Yes 30mg QD Take 1 Meth luis [...] 2 l (two) times a day. sucralfate 0 Yes 1g QD Take 1 [facility] (CARAFATE) 9-05 tablet (1 st 1 gram 11:34: g total) Hospita tablet 39 by mouth l daily. famotidine 0 Yes 40mg QD Take 1 Metho di [...] ORAL) docusate 0 Yes 50mg Q.5D Take 1 [facility] sodium [...] 5mg QD Take 1 [facility] (DELTASONE) -05 tablet (5 st 5 mg tablet 11:34: mg total) H ospita 39 by mouth l daily. lansoprazol 0 Yes 30mg QD Take 1 Meth luis [...] 2 l (two) times a day. sucralfate 3-0 Yes 1g QD Take 1 Metho di [...] mouth 2 (two) times a day. lactobacill 2023-0 Yes 1{tbl} Q.5D Take 1 Me thodi us combo 9-[address] no[address]13 11:34: mouth 2 Hospita (Probiotic 39 (two) l Pearls times a Complete) 1 day. billion cell capsule,del ayed release(DR/ EC) simethicone 2023-0 Yes 180mg Q.5D Take 180 M ethodi (MYLICON) 9-[address] 125 mg 11:34: mouth 2 Hospita capsule 39 (two) l times a day. predniSONE 2023-0 Yes 5mg QD Take 1 Metho di [...] tablet 39 by mouth l daily. famotidine 2023-0 Yes 40mg QD Take 1 Metho di [...] mouth 2 (two) times a day. lactobacill 3-0 Yes 1{tbl} Q.5D Take 1 Me thodi us combo 9-[address] no[address]13 11:34: mouth 2 Hospita (Probiotic 39 (two) l Pearls times a Complete) 1 day. billion cell capsule,del ayed release(DR/ EC) simethicone 2022-0 Yes 180mg Q.5D Take 180 M ethodi (MYLICON) 9-[address] 125 mg 11:34: mouth 2 Hospita capsule 39 (two) l times a day. predniSONE 3-0 Yes 5mg QD Take 1 Metho di (DELTASONE) 9-05 tablet (5 st 5 mg tablet 11:34: mg total) H ospita 39 by mouth l daily. lansoprazol 3-0 Yes 30mg QD Take 1 Meth luis carlos e 9-[address] (PREVACID) 11:34: (30 mg Hospi ta 30 MG 39 total) by l capsule mouth daily. hydrOXYchlo 3-0 Yes 200mg Q.5D Take 1 Met hodi roQUINE 9-[address] (PLAQUENIL) 11:34: (200 mg Hos joshua 200 mg 39 total) by l tablet mouth 2 (two) times a day. montelukast 3-0 Yes 10mg QD Take 1 Meth luis carlos (SINGULAIR) 9-05 tablet (10 st 10 mg 11:34: mg total) Hospita tablet 39 by mouth l nightly. azaTHIOprin 3-0 Yes 50mg Q.5D Take 1 Meth luis carlos e (IMURAN) 9-05 tablet (50 st 50 mg 11:34: mg total) Hospita tablet 39 by mouth 2 l (two) times a day. sucralfate 3-0 Yes 1g QD Take 1 Metho di (CARAFATE) 9-05 tablet (1 st 1 gram 11:34: g total) Hospita tablet 39 by mouth l daily. famotidine 2022-0 Yes 40mg QD Take 1 Metho di (PEPCID) 40 9-05 tablet (40 st MG tablet 11:34: mg total) Hos joshua 39 by mouth l daily. acetaminoph 202-0 Yes 500mg Q6H Take 1 Met hodi [...] 39 (two) l times a day. predniSONE 3-0 Yes 5mg QD Take 1 Metho di (DELTASONE) 9-05 tablet (5 st 5 mg tablet 11:34: mg total) H ospita 39 by mouth l daily. lansoprazol 3-0 Yes 30mg QD Take 1 Meth luis [...] hours as needed for mild pain. vit 3-0 Yes 1{tbl} Q.5D Take 1 [facility] C/E/Zn/meryl 9-[address] r/lutein/ze 11:34: mouth 2 Hos joshua axan 39 (two) l (PRESERVISI times a ON AREDS-2 day. ORAL) docusate 2022-0 Yes 50mg Q.5D Take 1 [facility] sodium 9-[address] (COLACE) 50 11:34: (50 mg Hosp jose a MG capsule 39 total) by l mouth 2 (two) times a day. lactobacill 3-0 Yes 1{tbl} Q.5D Take 1 Me thodi us combo 9-[address] no[address]13 11:34: mouth 2 Hospita (Probiotic 39 (two) l Pearls times a Complete) 1 day. billion cell capsule,del ayed release(DR/ EC) simethicone 3-0 Yes 180mg Q.5D Take 180 M ethodi (MYLICON) 9-[address] 125 mg 11:34: mouth 2 Hospita capsule 39 (two) l times a day. atorvastati 2021-09 Yes [id number] TAKE 1 [facility] (LIPITOR) 0-[address] 40 mg 00:00: MOUTH Hospita tablet 00 EVERY DAY l atorvastati 2021-09 Yes [id number] TAKE 1 [facility] (LIPITOR) 0-[address] 40 mg 00:00: MOUTH Hospita tablet 00 EVERY DAY l atorvastati 2021-09- No [id number] TAKE 1 [facility] (LIPITOR) 0-10 09-[address] 40 mg 00:00: 00:00 MOUTH Hospita tablet 00 :00 EVERY DAY l atorvastati 2021-09- No [id number] TAKE 1 [facility] (LIPITOR) 0-10 09-[address] 40 mg 00:00: 00:00 MOUTH Hospita tablet 00 :00 EVERY DAY l atorvastati 2021-09- No [id number] TAKE 1 [facility] (LIPITOR) 0-10 09-[address] 40 mg 00:00: 00:00 MOUTH Hospita tablet 00 :00 EVERY DAY l atorvastati 2021-09- No [id number] TAKE 1 [facility] (LIPITOR) 0-10 09-[address] 40 mg 00:00: 00:00 MOUTH Hospita tablet 00 :00 EVERY DAY l atorvastati 2021-09- No [id number] TAKE 1 [facility] (LIPITOR) 0-10 09-[address] 40 mg 00:00: 00:00 MOUTH Hospita tablet 00 :00 EVERY DAY l predniSONE Yes 5mg QD Take 5 mg Me thodi (DELTASONE) 9-[address] 5 mg tablet 11:32: daily. Hosp jose a 14 l lansoprazol Yes 30mg QD Take 30 mg [facility] e 9-[address] (PREVACID) 11:32: daily. Hospi ta 30 MG 14 l capsule hydrOXYchlo Yes 200mg Q.5D Take 200 M ethodi roQUINE 9-[address] (PLAQUENIL) 11:32: mouth 2 Hos joshua 200 mg 14 (two) l tablet times a day. montelukast Yes 10mg QD Take 10 mg [facility] (SINGULAIR) 9- by mouth st 10 mg 11:32: nightly. Hospita tablet 14 l azaTHIOprin 0 Yes 50mg Q.5D Take 50 mg Methodi e (IMURAN) -[address] 50 mg 11:32: [...] Yes 1{tbl} Q.5D Take 1 [facility] C/E/Zn/meryl - tablet by st r/lutein/ze 11:32: mouth 2 [...] 10mg QD Take 10 mg [facility] (SINGULAIR) 9- by mouth st 10 mg 11:32: nightly. Hospita tablet 14 l azaTHIOprin 2021-0 Yes 50mg Q.5D Take 50 mg Methodi e (IMURAN) 9-[address] 50 mg 11:32: (two) Hospita tablet 14 times a l day. sucralfate 0 Yes 1g QD Take 1 g Met hodi (CARAFATE) - by mouth st 1 gram 11:32: daily. [...] l times a day. atorvastati 2020-09- No [id number] 40mg QD Take 1 [facility] n (LIPITOR) 0-22 10-10 tablet (40 s t 40 mg 00:00: 00:00 mg total) Hospit a tablet 00 :00 by mouth l daily. atorvastati 2020-09- No [id number] 40mg QD Take 1 [facility] (LIPITOR) 0-22 10-10 tablet (40 s t 40 mg 00:00: 00:00 mg total) Hospit a tablet 00 :00 by mouth l daily. aspirin 2020-0 Yes 81mg QD Take 1 [facility] (ECOTRIN) 4-22 tablet (81 st 81 MG 00:00: mg total) Hospita enteric 00 by mouth l coated daily. tablet aspirin 2020-0 Yes 81mg QD Take 1 [facility] (ECOTRIN) 4-22 tablet (81 st 81 MG 00:00: mg total) Hospita enteric 00 by mouth l coated daily. tablet aspirin 2020-0 Yes 81mg QD Take 1 [facility] (ECOTRIN) 4-22 tablet (81 st 81 MG 00:00: mg total) Hospita enteric 00 by mouth l coated daily. tablet aspirin 2020-0 Yes 81mg QD Take 1 [facility] (ECOTRIN) 4-22 tablet (81 st 81 MG 00:00: mg total) Hospita enteric 00 by mouth l coated daily. tablet aspirin 2020-0 Yes 81mg QD Take 1 [facility] (ECOTRIN) 4-22 tablet (81 st 81 MG 00:00: mg total) Hospita enteric 00 by mouth l coated daily. tablet aspirin 2020-0 Yes 81mg QD Take 1 [facility] (ECOTRIN) 4-22 tablet (81 st 81 MG 00:00: mg total) Hospita enteric 00 by mouth l coated daily. tablet aspirin 2020-0 Yes 81mg QD Take 1 [facility] (ECOTRIN) 4-22 tablet (81 st 81 MG 00:00: mg total) Hospita enteric 00 by mouth l coated daily. tablet azithromyci 2018-0 Yes Notes: Nikolai lidia n 250 mg [...] mL, 0 20 MG/ML Refill(s), Oral Pharmacy: [facility] [place] [id number] Levofloxaci Yes 750 mg = 1 Memoria n 750 MG 5-31 tab, PO, l Oral Tablet 19:28: Q24H, X 7 H ermann [Levaquin] 00 day, # 7 tab, 0 Refill(s), Pharmacy: [facility] #[id number] montelukast No Notes: Nikolai lidia 5-30 (Same l 14:00: as:Singula ir) lansoprazol No 30 mg, Nikolai lidia e 5-30 Route: PO, l 14:00: Drug form: [place] 00 DRC, Daily, Dosing Weight 81.091, kg, [...] cap, l Capsule 02:00: Route: PO, Herm Drug form: CAP, Bedtime, Dosing Weight 81.091, kg, Start date: 02/11/19 21:00:00 CDT, Duration: 30 day, Stop date: 03/12/19 21:00:00 CDT Pravastatin 2018- No Notes: Nikolai lidia 5-30 (Same as: l 02:00: Pravachol) [place] 00 cefTRIAXone 2018- No Notes: Nikolai lidia + sterile 5-30 (Same As: l water 10 mL 02:00: Rocephin). [place] Use with 100 mL NS and infuse over 30 min MEDICATION WASTE Product Size: 1000 mg Product Wasted: ___ mg azithromyci No Notes: Nikolai lidia n + Sodium 5-30 (Same As: l Chloride 00:00: Zithromax Herm taylor 0.9% IV 250 00 IV) mL Protonix No Notes: Memoria 5-29 Tablet l 21:30: should not [place] 00 be chewed or crushed. (Same as: Protonix) Calcium No Notes: Memoria Gluconate 5-29 WASTE: F/P l 20:04: - Sink; E [place] - [facility] Trash Bin Magnesium No Notes: Memori a Oxide 5-29 (Same as: l 20:04: Mag-Ox [place] 00 400) Magnesium oxide [id number] g elemental magnesium Dose=____m g magnesium oxide (___mg elemental magnesium) Magnesium No Notes: Memori a Sulfate -29 WASTE: F/P l 20:04: - Sink; E [place] 00 - Municipal Trash Bin Potassium No Notes: Memori a Chloride 5-29 Infuse at l 20:04: a rate of [place] 00 10 mEq/hr. (Same as: KCL) sodium No Notes: Memoria phosphate 5-29 Infuse l 20:04: over 4 [place] 00 hour. Do not infuse phosphorou s [...] 5-29 (Same as: l odium 20:04: Phos-NaK) [place] phosphate 00 Each 1.5 250 mg-280 gm [...] cap, PO, l MG Oral 19:06: Daily, [place] Capsule 00 bedtime, 0 Refill(s) montelukast Yes 10 mg = 1 M emoria 10 mg oral 5-29 tab, PO, l tablet 19:06: Daily, 0 [place] 00 Refill(s) lansoprazol Yes 30 mg = 1 M emoria e 30 mg 5-29 cap, PO, l oral 19:06: Daily, 0 [place] delayed 00 Refill(s) release capsule simethicone Yes [...] Notes: Nikolai lidia en 325 MG / - (Same as: l Hydrocodone 04:49: Whitney Cassi nn Bitartrate 00 325/5) Do 5 MG Oral not exceed Tablet 4gm/day of [Whitney acetaminop 5/325] hen. Ceftriaxone No 1 gm, Memor ia 02-11 Route: l 02:00: IVP, [place] [id number], kg, Start date: 02/10/19 21:00:00 CDT, Duration: 7 day, Stop date: 02/16/19 21:00:00 CDT, ABX Indication : Pneumonia Azithromyci No Notes: Nikolai lidia n - (Same As: l 02:00: Zithromax [place] 00 IV) Dextrometho No Notes: Nikolai lidia rphan 02-11 (dextromet l Hydrobromid 01:15: horphan-gu [place] e 2 MG/ML / 00 aifenesin Guaifenesin 10-100mg/5 20 MG/ML ml 10 ml Oral oral SOLN Solution ud) (Same as: Robitussin DM) Acetaminoph No Notes: Do M emoria en 02-11 not exceed l 01:15: 4 gm/day. [place] (Same as: Tylenol) Ondansetron No Notes: Nikolai [...] n - (Same As: l 23:56: Zithromax [place] IV) Ceftriaxone No Notes: Nikolai lidia - (Same As: l 23:55: Rocephin). [place] 00 Use with 100 mL NS and infuse over 30 min MEDICATION WASTE Product Size: 1000 mg Product Wasted: ___ mg ibuprofen ibuprofen No ibuprofen Melanie 800 mg [...] EVERY MOUTH EVERY TABLET BY Medicin DAY MOUTH e EVERY DAY promethazin promethazin [...] BEDTIME Flovent HFA Flovent HFA No Flovent Emlanie 110 110 HFA 110 Orthope mcg/actuati mcg/actuati [...] Sports MOUTH AT MOUTH AT TABLET BY Ga dicin BEDTIME BEDTIME MOUTH AT e BEDTIME [...] DAY X3 DAYS carbidopa carbidopa No carbidopa Melanie 25 [...] Sports MOUTH AT MOUTH AT TABLET BY Ga dicin BEDTIME BEDTIME MOUTH AT e BEDTIME [...] A DAY BY MOUTH TWICE A DAY Vital Signs Vital Name [...] BMI (Body Mass 2022-11-07 00:00:00 24.4 kg/m2 [facility]) Sports Medicine Body Weight 2022-11-07 00:00:00 165 [lb_av] Melanie O rthopedic Sports Medicine Systolic blood 2023-05-21 16:34:00 109 mm[Hg] [facility] pressure Diastolic blood 2023-05-21 16:34:00 58 mm[Hg] [facility] pressure Heart rate 2023-05-21 16:34:00 58 /min [facility] Body height 2023-05-21 16:34:00 175.3 cm [facility] Body weight 2023-05-21 16:34:00 76.204 kg [facility] BMI 2023-05-21 16:34:00 24.81 kg/m2 [facility] Systolic blood 2022-06-12 16:31:00 114 mm[Hg] [facility] pressure Diastolic blood 2022-06-12 16:31:00 60 mm[Hg] [facility] pressure Heart rate 2022-06-12 16:31:00 62 /min [facility] Body height 2022-06-12 16:31:00 175.3 cm [facility] Body weight 2022-06-12 16:31:00 78.019 kg [facility] BMI 2022-06-12 16:31:00 25.40 kg/m2 [facility] Temperature Oral (F) 2019-02-13 16:43:00 97.5 F [facility] [place] Systolic (mm Hg) 2019-02-13 16:43:00 Nikolai rial [place] Diastolic (mm Hg) 2019-02-13 16:43:00 Mem orial [place] Respitory Rate 2019-02-13 16:43:00 Memori al [place] Heart Rate 2019-02-13 16:43:00 [facility] [place] Respitory Rate 2019-02-13 15:12:00 Memori al [place] Heart Rate 2019-02-13 12:35:00 [facility] [place] Temperature Oral (F) 2019-02-13 12:35:00 97.8 F [facility] [place] Systolic (mm Hg) 2019-02-13 12:35:00 Nikolainabor chacon [place] Diastolic (mm Hg) 2019-02-13 12:35:00 [facility] orial [place] Respitory Rate 2019-02-13 12:35:00 Kathy sarah [place] Heart Rate 2019-02-13 08:23:00 [facility] [place] Temperature Oral (F) 2019-02-13 08:23:00 97.8 F [facility] [place] Systolic (mm Hg) 2019-02-13 08:23:00 Nikolai lidial [place] Diastolic (mm Hg) 2019-02-13 08:23:00 [facility] orial [place] Height 2019-02-11 02:05:00 177.8 cm [facility] [place] Weight 2019-02-11 02:05:00 [facility] [place] BMI Calculated 2019-02-11 02:05[facility] [place] Weight 2019-02-11 01:45:00 [facility] [place] BMI Calculated 2019-02-11 01:45:00 [facility] al [place] Height 2019-02-11 01:45:00 [facility] Procedure Date / Time Performed Performing Clinician Sour e MRI, lumbar spine, 2022-11-26 00:00:00 Melanie Or thopedic w/o contrast Sports Medicine MRI, lumbar spine, 2022-11-22 00:00:00 Melanie Or thopedic w/o contrast Sports Medicine TTE COMPLETE, WO 2022-07-13 18:09:23 Gracia Zamora ospital CONTRAST, W DOPPLER ([id number]) LIPID PANEL 2022-06-15 18:02:00 Gracia Zamora spital AST (SGOT) 2022-06-15 18:02:00 Gracia Zamora spital ECG 12-LEAD 2022-06-12 16:31:36 Gracia Zamora spital Heart Stent Melanie Orthopedi c Sports Medicine Placement of stent in [facility] ermann cardiac conduit Plan of Care Planned Activity Planned Date Details Comments Source Future Scheduled 2023-07-19 Scre[facility] for [facility] Test 16:40:33 malignant neoplasm of colon (procedure) [code = 040021023] Future Scheduled 2023-07-19 [facility] for [facility] Test 16:40:33 malignant neoplasm of colon (procedure) [code = 475559484] Future Scheduled 2023-07-19 [facility] for [facility] Test 16:40:33 malignant neoplasm of colon (procedure) [code = 548951044] Future Scheduled 2023-07-19 COVID-19 VACCINE (#1) [facility] Test 16:40:33 [code = COVID-19 VACCINE (#1)] Future Scheduled 2023-07-19 65+ [facility] Test 16:40:33 VACCINE (1 - PCV) [code = 65+ PNEUMOCOCCAL VACCINE (1 - PCV)] Future Scheduled 2023-07-19 Hepatitis C screening [facility] Test 16:40:33 (procedure) [code = 087522096] Future Scheduled 2023-07-19 SHINGLES VACCINES (1 [facility] Test 16:40:33 of 2) [code = SHINGLES VACCINES (1 of 2)] Future Scheduled 2023-07-19 Scre[facility] for [facility] Test 16:40:33 malignant neoplasm of colon (procedure) [code = 475881681] Future Scheduled 2023-07-19 Scre[facility] for [facility] Test 16:40:33 malignant neoplasm of colon (procedure) [code = 433234850] Future Scheduled 2023-07-19 [facility] 16:40:33 [code = INFLUENZA VACCINE (#1)] Future Scheduled 2023-07-19 Screening for [facility] Test 16:40:33 malignant neoplasm of colon (procedure) [code = 571724150] Future Scheduled 2023-07-19 Scre[facility] for [facility] Test 16:40:33 malignant neoplasm of colon (procedure) [code = 845800687] Future Scheduled 2023-07-19 Scre[facility] for [facility] Test 16:40:33 malignant neoplasm of colon (procedure) [code = 396146216] Future Scheduled 2023-07-19 COVID-19 VACCINE (#1) [facility] Test 16:40:33 [code = COVID-19 VACCINE (#1)] Future Scheduled 2023-07-19 65+ [facility]CCAL [facility] Test 16:40:33 VACCINE (1 - PCV) [code = 65+ PNEUMOCOCCAL VACCINE (1 - PCV)] Future Scheduled 2023-07-19 Hepatitis C screening [facility] Test 16:40:33 (procedure) [code = 980293817] Future Scheduled 2023-07-19 SHINGLES VACCINES (1 [facility] 16:40:33 of 2) [code = SHINGLES VACCINES (1 of 2)] Future Scheduled 2023-07-19 Scre[facility] for [facility] Test 16:40:33 malignant neoplasm of colon (procedure) [code = 567083813] Future Scheduled 2023-07-19 [facility] for [facility] Test 16:40:33 malignant neoplasm of colon (procedure) [code = 103611521] Future Scheduled 2023-07-19 INFLUENZA VACCINE (#1) [facility] 16:40:33 [code = INFLUENZA VACCINE (#1)] Future Scheduled 2023-07-19 Scre[facility] for [facility] Test 16:40:33 malignant neoplasm of colon (procedure) [code = 458140108] Future Scheduled 2023-07-19 [facility] for [facility] Test 16:40:33 malignant neoplasm of colon (procedure) [code = 166075628] Future Scheduled 2023-07-19 [facility] for [facility] Test 16:40:33 malignant neoplasm of colon (procedure) [code = 601978270] Future Scheduled 2023-07-19 COVID-19 VACCINE (#1) [facility] Test 16:40:33 [code = COVID-19 VACCINE (#1)] Future Scheduled 2023-07-19 65+ PNEUMOCOCCAL [facility] Test 16:40:33 VACCINE (1 - PCV) [code = 65+ PNEUMOCOCCAL VACCINE (1 - PCV)] Future Scheduled 2023-07-19 Hepatitis C screening [facility] Test 16:40:33 (procedure) [code = 895700548] Future Scheduled 2023-07-19 SHINGLES VACCINES (1 [facility] Test 16:40:33 of 2) [code = SHINGLES VACCINES (1 of 2)] Future Scheduled 2023-07-19 [facility] for [facility] Test 16:40:33 malignant neoplasm of colon (procedure) [code = 119978075] Future Scheduled 2023-07-19 Scre[facility] for [facility] Test 16:40:33 malignant neoplasm of colon (procedure) [code = 313173808] Future Scheduled 2023-07-19 INFLUENZA VACCINE (#1) [facility] Test 16:40:33 [code = INFLUENZA VACCINE (#1)] Future Scheduled 2023-07-19 Scre[facility] for [facility] Test 16:40:33 malignant neoplasm of colon (procedure) [code = 598717757] Future Scheduled 2023-07-19 [facility] for [facility] Test 16:40:33 malignant neoplasm of colon (procedure) [code = 701095624] Future Scheduled 2023-07-19 [facility] for [facility] Test 16:40:33 malignant neoplasm of colon (procedure) [code = 577403401] Future Scheduled 2023-07-19 [facility] 16:40:33 [code = COVID-19 VACCINE (#1)] Future Scheduled 2023-07-19 65+ [facility]CCAL [facility] Test 16:40:33 VACCINE (1 - PCV) [code = 65+ PNEUMOCOCCAL VACCINE (1 - PCV)] Future Scheduled 2023-07-19 Hepatitis C screening [facility] Test 16:40:33 (procedure) [code = 987338014] Future Scheduled 2023-07-19 SHINGLES VACCINES (1 [facility] Test 16:40:33 of 2) [code = SHINGLES VACCINES (1 of 2)] Future Scheduled 2023-07-19 [facility] for [facility] Test 16:40:33 malignant neoplasm of colon (procedure) [code = 387262629] Future Scheduled 2023-07-19 [facility] for [facility] Test 16:40:33 malignant neoplasm of colon (procedure) [code = 534764985] Future Scheduled 2023-07-19 INFLUENZA VACCINE (#1) [facility] 16:40:33 [code = INFLUENZA VACCINE (#1)] Future Scheduled 2023-07-11 [facility] Test 11:55:44 malignant neoplasm of colon (procedure) [code = 996843339] Future Scheduled 2023-07-11 [facility] for [facility] Test 11:55:44 malignant neoplasm of colon (procedure) [code = 090149006] Future Scheduled 2023-07-11 [facility] Test 11:55:44 malignant neoplasm of colon (procedure) [code = 914042888] Future Scheduled 2023-07-11 COVID-19 VACCINE (#1) [facility] Test 11:55:44 [code = COVID-19 VACCINE (#1)] Future Scheduled 2023-07-11 65[facility]OC[facility] 11:55:44 VACCINE (1 - PCV) [code = 65+ PNEUMOCOCCAL VACCINE (1 - PCV)] Future Scheduled 2023-07-11 Hepatitis C screening [facility] Test 11:55:44 (procedure) [code = 426821409] Future Scheduled 2023-07-11 SHINGLES VACCINES (1 [facility] 11:55:44 of 2) [code = SHINGLES VACCINES (1 of 2)] Future Scheduled 2023-07-11 [facility] Test 11:55:44 malignant neoplasm of colon (procedure) [code = 015458572] Future Scheduled 2023-07-11 Screening for [facility] Test 11:55:44 malignant neoplasm of colon (procedure) [code = 008318644] Future Scheduled 2023-07-11 INFLUENZA VACCINE (#[facility]) [facility] 11:55:44 [code = INFLUENZA VACCINE (#1)] Future Scheduled 2022-12-17 COVID-19 VACCINE (#1) [facility] 15:15:13 [code = COVID-19 VACCINE (#1)] Future Scheduled 2022-12-17 65+ [facility]OCO[facility]AL [facility] 15:15:13 VACCINE (1 - PCV) [code = 65+ PNEUMOCOCCAL VACCINE (1 - PCV)] Future Scheduled 2022-12-17 [facility] C [facility] Test 15:15:13 (procedure) [code = 766445232] Future Scheduled 2022-12-17 SHINGLES VACCINES (1 [facility] 15:15:13 of 2) [code = SHINGLES VACCINES (1 of 2)] Future Scheduled 2022-12-17 [facility]ONOSCOPY SCREENING [facility] Test 15:15:13 [code = COLONOSCOPY SCREENING] Future Scheduled 2022-12-17 [facility]ACCINE [facility] 15:15:13 [code = INFLUENZA VACCINE] Future Scheduled 2022-08-30 COVID-19 VACCINE (#1) [facility] Test 22:27:14 [code = COVID-19 VACCINE (#1)] Future Scheduled 2022-08-30 65+ [facility]OCOCCAL [facility] 22:27:14 VACCINE (1 - PCV) [code = 65+ PNEUMOCOCCAL VACCINE (1 - PCV)] Future Scheduled 2022-08-30 Hepatitis C screening [facility] Test 22:27:14 (procedure) [code = 295732740] Future Scheduled 2022-08-30 SHINGLES VACCINES (1 Met [facility] Test 22:27:14 of 2) [code = SHINGLES VACCINES (1 of 2)] Future Scheduled 2022-08-30 COLONOSCOPY SCREENING [facility] Test 22:27:14 [code = COLONOSCOPY SCREENING] Future Scheduled 2022-08-30 INFLUENZA VACCINE Method [facility] Test 22:27:14 [code = INFLUENZA VACCINE] Encounters Start End Encounter Admission Attending Care Care Encounter Source Date/Time Date/Time Type Type Clinicians Facility Department ID 2023-05-27 2023-05-27 Refjenn Zamora, 1.2.840.1 [id number] Methodi 00:00:00 00:00:[address] 3.430.2.7 Hospit a .3.477535 l .8 2023-05-27 2023-05-27 Refill Sera, 1.2.840.1 [id number] Methodi 00:00:00 00:00:00 [address] 3.430.2.7 Hospit a .3.625286 l .8 2023-05-21 2023-05-21 Office Sera, 1.2.840.1 [id number] Methodi 11:00:00 14:55:36 Visit Gracia Erwin50.1.[address] 3.430.2.7 Hospit a .3.400278 l .8 2023-05-21 2023-05-21 Office Sera, 1.2.840.1 [id number] 7420 Methodi 11:00:00 14:55:36 Visit Gracia Onofre 11475.1.[address] 3.430.2.7 Hospit a .3.741105 l .8 2023-05-13 2023-05-13 Outpatient FOG_A_Provi AOSM AOSM 648 8765-20 Melanie 00:00:00 00:00:00 sandy 601524 [facility] 2023-05-06 2023-05-06 Outpatient FOG_A_Provi AOSM AOSM 648 8765-20 Melanie 00:00:00 00:00:00 sandy 512537 [facility] 2023-04-16 2023-04-16 Orders Aristeo Starr 1.2.840.1 [id number] 2099 [id number] Methodi 00:00:00 00:00:[address] 3.430.2.7 Hospit a .3.444982 l .8 2023-04-16 2023-04-16 Orders Aristeo Starr 1.2.840.1 [id number] 2099 [id number] Methodi 00:00:00 00:00:[address] 3.430.2.7 Hospit a .3.879469 l .8 2023-04-15 2023-04-15 Telephone Sera 1.2.840.1 [id number] 2100 [id number] Methodi 00:00:00 00:00:00 [address] 3.430.2.7 Hospit a .3.084400 l .8 2023-04-15 2023-04-15 Telephone Sera 1.2.840.1 [id number] 2100 [id number] Methodi 00:00:00 00:00:00 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 [phone] 2022-12-24 2022-12-24 Outpatient FOG_A_Provi AOSM AOSM 648 8765-20 Melanie 00:00:00 00:00:00 sandy 953041 Orthop e dic Sports Medicin e 2022-12-11 2022-12-11 Outpatient FOG_A_Provi AOSM AOSM 648 8765-20 Melanie 00:00:00 00:00:00 sandy 270139 Orthop e dic [facility] Medicin e 2022-12-11 2022-12-11 Outpatient FOG_A_Provi AOSM AOSM 648 8765-20 Melanie 00:00:00 00:00:00 sandy 032426 [facility] 2022-12-11 2022-12-11 Outpatient FOG_A_Provi AOSM AOSM 648 8765-20 Melanie 00:00:00 00:00:00 sandy 861050 Orthop e dic Sports Medicin e 2022-12-11 2022-12-11 [place] AOSM [place] - Ortho [id number] Melanie 00:00:00 00:00:00 Shaye Plunkett MD: 7401 FOG_Surgery dic [facility], [facility], [place] [address] , Ph. [phone] 2022-12-04 2022-12-04 Outpatient FOG_A_Provi AOSM AOSM 648 8765-20 Melanie 00:00:00 00:00:00 sandy 712336 Orthop e dic Sports Medicin e 2022-12-04 2022-12-04 [place] AOSM [place] - Ortho [id number] 1 Melanie 00:00:00 00:00:[address] TRAFFIC CONTROLLER: 01589 FOG_Ofc dic [facility], Count Includes [facility] [address] , Ph. 2022-11-28 2022-11-28 Outpatient FOG_A_Provi AOSM AOSM 648 8765-20 Melanie 00:00:00 00:00:00 sandy 374153 Orthop e dic Sports Medicin e 2022-11-26 2022-11-26 Telephone Zamora, 1.2.840.1 [id number] 2099 [id number] Methodi 00:00:00 00:00:00 Gr[address] 3.430.2.7 Hospit a .3.786242 l .8 2022-11-26 2022-11-26 Telephone Zamora, 1.2.840.1 [id number] 2099 [id number] Methodi 00:00:00 00:00:00 Gr[address] 3.430.2.7 Hospit a .3.646451 l .8 2022-11-23 2022-11-23 Outpatient FOG_A_Provi AOSM AOSM 648 8765-20 Melanie 00:00:00 00:00:00 sandy 515662 Orthop e dic Sports Medicin e 2022-11-08 2022-11-08 Outpatient FOG_A_Provi AOSM AOSM 648 8765-20 Melanie 00:00:00 00:00:00 sandy 408255 Orthop e dic Sports Medicin e 2022-11-08 2022-11-08 Outpatient FOG_A_Provi AOSM AOSM 648 8765-20 Melanie 00:00:00 00:00:00 sandy 932597 Orthop e dic Sports Medicin e 2022-11-08 2022-11-08 [place]OSM [place] - Ortho [id number] 3 Melanie 00:00:00 00:00:00 Shaye Plunkett MD: 83446 FOG_Ofc dic [facility], Count Includes [facility] [address] , Ph. 2022-11-07 2022-11-07 Outpatient FOG_A_Provi AOSM AOSM 648 8765-20 Melanie 00:00:00 00:00:00 sandy 363503 Orthop e dic Sports Medicin e 2022-11-07 2022-11-07 [place] AOSM [place] - Ortho Melanie 00:00:00 00:00:00 MD Karli: Shaye Dixon - Orthope [address] FOG_Ofc dic Ranjit, [employer] [address], [place], [place] [address] , Ph. [phone] 2022-10-29 2022-10-29 Outpatient FOG_A_Provi AOSM AOSM 648 8765-20 Melanie 00:00:00 00:00:00 sandy 633593 Orthop e dic Sports Medicin e 2022-10-29 2022-10-29 Outpatient FOG_A_Provi AOSM AOSM 648 8765-20 Melanie 00:00:00 00:00:00 sandy 113219 Orthop e dic Sports Medicin e 2022-10-18 2022-10-18 Outpatient FOG_A_Provi AOSM AOSM 648 8765-20 Melanie 00:00:00 00:00:00 sandy 281571 Orthop e dic Sports Medicin e 2022-07-13 2022-07-13 Outpatient [facility] [id number] [place] 00:00:00 00:00:[address] GRACIA [address] 2022-07-13 2022-07-13 Travel 1.2.840.1 1.2.832.975 8592 [id number] Methodi 00:00:00 00:00:[address] 3.430.2.7 0.2.7.3.698 Ho spita .3.955222 084.8 l .8 2022-07-03 2022-07-03 Telephone Alex Richey2.840.1 [id number] Methodi 00:00:00 00:00:[address] 3.430.2.7 Hospit a .3.035696 l .8 2022-07-03 2022-07-03 Orders Rossi, 1.2.840.1 [id number] 689 [id number] Methodi 00:00:00 00:00:00 Only Mary [address]39.1.[address] 3.430.2.7 Hospit a .3.017809 l .8 2022-06-25 2022-06-25 Refill Zamora, 1.2.840.1 [id number] 7766 Methodi 00:00:00 00:00:[address] 3.430.2.7 Hospit a .3.510163 l .8 2022-06-12 2022-06-12 Office Zamora, 1.2.840.1 [id number] 9325 Methodi 11:20:00 15:47:24 Visit Gracia Onofre 63095.1.[address] 3.430.2.7 Hospit a .3.707757 l .8 2022-06-12 2022-06-12 Travel 1.2.840.1 1.2.733.731 7711 [id number] Methodi 00:00:00 00:00:[address] 3.430.2.7 0.2.7.3.698 Ho spita .3.528840 084.8 l .8 2022-05-28 2022-05-28 Telephone Zamora, 1.2.840.1 [id number] 2100 [id number] Methodi 00:00:00 00:00:00 [address] 3.430.2.7 Hospit a .3.707842 l .8 2021-09-23 2021-09-23 Outpatient Bui_Q VFP P [id number] [facility] 07:01:00 07:01:00 Family Practic e 2021-01-24 2021-01-25 Outpatient SERAREPLACED BY [facility] [id number] [address] 00:00:00 00:00:00 GRACIA [address] 2021-01-04 2021-01-05 Outpatient [place] [id number] [place] [address] 00:00:00 00:00:00 GRACIA [address] 2020-12-30 2020-12-30 Outpatient ZAMORA, [facility] [id number] [place] 00:00:00 00:00:00 GRACIA [address] 2020-12-20 2020-12-20 Outpatient ZAMOAR, [facility] [id number] [address] [place] 00:00:00 00:00:00 GRACIA [address] 2020-12-13 2020-12-13 Outpatient ZAMORA, [facility] [id number] [address] [place] 00:00:00 00:00:00 GRACIA [address] 2020-12-13 2020-12-13 Outpatient ZAMORA, [facility] [id number] [address] [place] 00:00:00 00:00:00 GRACIA [address] 2020-12-06 2020-12-06 Outpatient Bui_Q_WAG VFP VFP [id number] [facility] 10:32:00 10:32:00 35176 Family Practic e 2020-12-01 2020-12-01 Outpatient ZAMORA, [facility] [id number] [address] [place] 00:00:00 00:00:00 GRACIA [address] 2020-11-29 2020-11-29 Outpatient ZAMORA, [facility] [id number] [address] [place] 00:00:00 00:00:00 GRACIA [address] 2019-08-18 2019-08-19 Outpt Diag nullFlavo [facility] [id number] Memoria 17:44:00 05:59:00 Services r [facility] 00 [facility] 2019-08-18 2019-08-18 Outpatient Hotze, MHOIP MHOIP [id number] 11:44:00 23:59:00 Darinel 00 [place] 2019-04-11 2019-04-12 Outpatient nullFlavo [facility] 4669 [id number] Memoria 17:39:00 04:59:00 bryon Pisano 01 [facility] 2019-04-11 2019-04-11 Outpatient Hotze, MHSE MHSE [id number] 275 12:39:00 23:59:00 Darinel [place] 2019-02-10 2019-02-13 Inpatient nullFlavo [facility] 67236 97577 Memoria 22:09:47 21:20:00 bryon Pisano 00 [facility] 2019-02-10 2019-02-13 Outpatient MERCED Sweeney [facility] [id number] 275 17:09:47 16:20:00 Peter 00 Results Test [...] nge: <100 calculated (test code = Mable rabcamilla range <100 14733-0) mg/dL for prima ry prevention; <70 mg/dL for patients with C HD or diabetic patien ts with > or = 2 CHD risk factors. LDL-C is now ca lculated using the Radha bashir-Enriquez calculation, wh ich is a validated novel method providing maxine r accuracy than the Friede dex equation in the estimation of L DL-C. Robin SS et al . JADEN. 2013;310(23): 1 061-2297 (http://educati on.[employer]/f aq/SFM508) Cholesterol/HDL ratio See_Comment [Auto mated message] The (test code = 9830-1) system which generated this result tra nsmitted reference range : <5.0 (calc). The ref erence range was not u sed to interpret this result as normal/abnormal . Non-HDL cholesterol See_Comment For amy ents with (test code = 01988-1) diabet es plus 1 major ASCVD risk [...] = RAC) Performing Organization Information: Site ID: [facility] Name: [facility] Address: [address] [place] [address] Director: [facility]ribe [facility] 04:15:00 Test Item Value Reference Range Interpretation Comments AST (test code = 1920-8) 9 U/L 10-35 L STU (test code = STU) FASTING:YES FASTING: YES RAC (test code = RAC) Performing Organization Information: Site ID: [facility] Name: [facility] Address: [address] [place] [address] Director: Roland Uribe Lab Interpretation (test Abnormal code = 43035-6) [id number] 04:15:00 Test Item Value Reference Range Interpretation Comments Cholesterol, total 128 mg/dL <=200 (test code = 2093-3) HDL cholesterol 48 mg/dL See_Comment [Automated (test code = 2085-9) message ] The system which generated this result transmitted reference range : > OR = 40. The reference range was not used to interpret this result as normal/abnormal . Triglycerides (test 78 mg/dL <=150 code = 2571-8) LDL cholesterol 64 mg/dL (calc) Reference ra nge: calculated (test <100 Desira ble code = 60942-0) range <100 m g/dL for primary prevention; <70 mg/dL for patients with C HD or diabetic patients with > or = 2 CHD risk factors. LDL-C is now calculated using the Branden calculation, which is a validated novel method providin g better accuracy than the Friedewald equation in the estimation of LDL-C. Robin S S et al. JADEN. 2013;310(19): 0177-6348 (http://educati on .[employer] .com/faq/VFJ760 ) Cholesterol/HDL 2.7 See_Comment [Automated ratio (test code = message] The 9830-1) system which generated this result transmitted reference range : <5.0 (calc). Th e reference range was not used to interpret this result as normal/abnormal . Non-HDL cholesterol 80 See_Comment For amy ents with (test code = diabetes plus 1 19473-3) major ASCVD ris k factor, treatin g [...] = Performing RAC) Organization Information: Site ID: [facility] Name: [facility] Address: [address] [place] [address] Director: [facility]ribe [facility]2022-06-16 04:15:00 Test Item Value Reference Range Interpretation Comments AST (test code = 1920-8) 9 U/L 10-35 L STU (test code = STU) FASTING:YES FASTING: YES RAC (test code = RAC) Performing Organization Information: Site ID: [facility] Name: [facility] Address: [address] [place] [address] Director: Roland Uribe Lab Interpretation (test Abnormal code = 97753-1) [facility] 12 kuex7592-03-25 22:43:48 Test Item Value Reference Range Interpretation Comments Ventricular rate (test code = 253) Atrial rate (test code = 255) RI interval (test code = 266) QRSD interval [...] of 04-JAN-2021 15:46,-No significant change was found- [facility] 12 etil4368-57-92 22:43:48 Test Item Value Reference Range Interpretation Comments Ventricular rate (test 54 code = 253) Atrial rate (test code 54 = 255) RI interval (test code 132 = 266) QRSD [...] of 04-JAN-2021 15:46,-No significant change was found- [facility] RNA [Presence] in Respiratory specimen by MARIO with probe ezoasvlwq8973-75-32 00:02:00 Test Item Value Reference Range Interpretation Comments SARS-CoV-2 (COVID-19) RNA Not detected Not-Detected [Presence] in Respiratory specimen by MARIO with probe detection (test code = 78544-3) [facility]2019-05-30 08:11:00 Test Item Value Reference Range Interpretation Comments Lymphocytes (test code = Lymphocytes) 14.0 20.0-40.0 [facility]LxhtanpAIYUCYCPFG0029-58-40 08:11:00 Test Item Value Reference Range Interpretation Comments Monocytes (test code = Monocytes) 21.0 2.0-12.0 [facility] HeightsDjhzesyWPVVLYBXJM6019-61-41 08:11:00 Test Item Value Reference Range Interpretation Comments Lymphocytes # (test code = Lymphocytes 0.4 1.0-5.5 #) [facility] HeightsTycczmjHRLQXSRSYB0035-37-46 08:11:00 Test Item Value Reference Range Interpretation Comments Neutrophils # (test code = Neutrophils 2.0 1.5-8.1 #) [facility] HeightsDgoyweeOTUOPVTFJC0080-64-67 08:11:00 Test Item Value Reference Range Interpretation Comments RBC Morph (test code = Normal (02/12/19 3:11 RBC Morph) AM) [facility] HeightsNhrvtgaWHTXWWQKXW3393-96-21 08:11:00 Test Item Value Reference Range Interpretation Comments Segs (test code = Segs) 65.0 45.0-75.0 [facility] HeightsRgtlzrlBLBFZGAWEX8438-52-09 08:11:00 Test Item Value Reference Range Interpretation Comments Tot Cell Ct (test code = Tot Cell Ct) 100 1 [facility] HeightsWlceiyfVNMOVHIMZR7005-12-69 08:11:00 Test Item Value Reference Range Interpretation Comments Monocytes # (test code = Monocytes #) 0.7 <=0.8 [facility] HeightsVjcbpxsLTNYVNVFXP2559-39-46 08:11:00 Test Item Value Reference Range Interpretation Comments Plt Morph (test code = Normal (02/12/19 3:11 Plt Morph) AM) [facility] HeightsFihtkilFIRCJSEAJB1803-46-44 08:11:00 Test Item Value Reference Range Interpretation Comments MPV (test code = MPV) 8.6 7.4-10.4 [facility] HeightsBkzbrlmABSKEGHFJK3095-73-80 08:11:00 Test Item Value Reference Range Interpretation Comments MCH (test code = MCH) 36.5 pg 27.0-31.0 [facility] HeightsKwmuvjpKGTVBPGAFE3914-66-68 08:11:00 Test Item Value Reference Range Interpretation Comments MCHC (test code = MCHC) 33.9 32.0-36.0 [facility] HeightsXnxdchjOACFIBVBWC2564-90-21 08:11:00 Test Item Value Reference Range Interpretation Comments WBC (test code = WBC) 3.1 3.7-10.4 [facility] HeightsOfqjmeqTNNHOZLQBW9507-10-35 08:11:00 Test Item Value Reference Range Interpretation Comments Hgb (test code = Hgb) 10.6 14.0-18.0 [facility] HeightsYpcontiOLYFPOSCCQ0928-24-44 08:11:00 Test Item Value Reference Range Interpretation Comments Hct (test code = Hct) 31.2 42.0-54.0 [facility] HeightsQihbifjIFVFYWXJTE7304-90-62 08:11:00 Test Item Value Reference Range Interpretation Comments MCV (test code = MCV) 107.7 80.0-94.0 [facility] HeightsMbsklatRZEVDIWRNX0255-94-62 08:11:00 Test Item Value Reference Range Interpretation Comments RDW (test code = RDW) 20.3 11.5-14.5 [facility] HospitalHorkaekRDQEDXCITW4402-53-88 08:11:00 Test Item Value Reference Range Interpretation Comments Platelet (test code = Platelet) 298 133-450 [facility] ChyqepcTCNKIUUKMF1834-37-85 08:11:00 Test Item Value Reference Range Interpretation Comments RBC (test code = RBC) 2.90 4.70-6.10 [facility] Qcmhjn1509-04-05 20:39:00 Test Item Value Reference Range Interpretation Comments Gram Stain Report Gram Stain Performed By: (test code = Gram [facility] Stain Report) [facility] Respiratory w/Gram Abnet1908-13-37 20:39:00 Test Item Value Reference Range Interpretation Comments Culture: Respiratory Normal Respiratory w/Gram Stain (test code Cecy Isolated = Culture: Respiratory w/Gram Stain) [facility], TxBODY [id number] 16:40:00 Test Item Value Reference Range Interpretation Comments Gluc BF Type (test Pleural *NA*(02/11/19 code = Gluc BF Type) 11:40 AM) [facility] [id number] 16:40:00 Test Item Value Reference Range Interpretation Comments Glucose BF (test code = Glucose BF) 73 [facility] [id number] 16:40:00 Test Item Value Reference Range Interpretation Comments Prot BF Type (test Pleural *NA*(02/11/19 code = Prot BF Type) 11:40 AM) [facility] [id number] 16:40:00 Test Item Value Reference Range Interpretation Comments Protein BF (test code = Protein BF) 4.1 [facility] ChesterBODY [id number] 16:40:00 Test Item Value Reference Range Interpretation Comments LDH BF Type (test Pleural (02/11/19 11:40 code = LDH BF Type) AM) [facility] [id number] 16:40:00 Test Item Value Reference Range Interpretation Comments LDH BF (test code = LDH BF) 794 [facility] HospitalannGram Stain Fqtblz9996-93-86 16:40:00 Test Item Value Reference Range Interpretation Comments Gram Stain Report Rare WBC's No Organisms (test code = Gram Seen Stain Report) [facility], TxCulture: Aspirate/Body Fluid/Nzrwvq5738-05-62 16:40:00 Test Item Value Reference Range Interpretation Comments Culture: Aspirate/Body Fluid/Tissue No Growth (test code = Culture: Aspirate/Body Fluid/Tissue) [facility], TxBACTERIAL - [id number] 16:21:00 Test Item Value Reference Range Interpretation Comments Source Strep (test code Urine *NA*(02/11/19 = Source Strep) 11:21 AM) [facility], TxBACTERIAL - [id number] 16:21:00 Test Item Value Reference Range Interpretation Comments Strep pneumoniae Ag Negative (02/11/19 (test code = Strep 11:21 AM) pneumoniae Ag) [facility] [id number] 15:45:00 Test Item Value Reference Range Interpretation Comments Clarity BF (test code = Slight Cloudy (02/11/19 Clarity BF) 10:45 AM) [facility] [id number] 15:45:00 Test Item Value Reference Range Interpretation Comments Nucleated Cells BF (test code = 780 Nucleated Cells BF) [facility] [id number] 15:45:00 Test Item Value Reference Range Interpretation Comments Neutrophils BF (test code = Neutrophils 28 BF) [facility] [id number] 15:45:00 Test Item Value Reference Range Interpretation Comments RBC BF (test code = RBC BF) 3900 [facility] JMZJWQ4149-10-30 15:45:00 Test Item Value Reference Range Interpretation Comments Macrophage BF (test code = Macrophage 51 BF) [facility] [id number] 15:45:00 Test Item Value Reference Range Interpretation Comments Lymph BF (test code = Lymph BF) 21 [facility] [id number] 15:45:00 Test Item Value Reference Range Interpretation Comments CellCnt BF Type (test Pleural (02/11/19 10:45 code = CellCnt BF Type) AM) [facility] [id number] 15:45:00 Test Item Value Reference Range Interpretation Comments Color BF (test code = Yellow (02/11/19 10:45 Color BF) AM) [facility]annCARDIAC APDBROD0005-14-01 15:45:00 Test Item Value Reference Range Interpretation Comments Troponin-I (test code = Troponin-I) no gt <=0.40 [facility] HospitalannCARDIAC [id number] 13:14:00 Test Item Value Reference Range Interpretation Comments Troponin-I (test code = Troponin-I) no gt <=0.[address] [facility], TxCHEM [id number] 09:11:00 Test Item Value Reference Range Interpretation Comments Magnesium Lvl (test code = Magnesium 2.1 1.8-2.4 Lvl) [facility], TxCHEM [id number] 09:11:00 Test Item Value Reference Range Interpretation Comments Procalcitonin Lvl (test code = 0.45 <=0.10 Procalcitonin Lvl) [id number] 09:11:00 Test Item Value Reference Range Interpretation Comments CO2 (test code = CO2) 23 24-32 [id number] 09:11:00 Test Item Value Reference Range Interpretation Comments Calcium Lvl (test code = Calcium Lvl) 8.0 8.5-10.5 [id number] 09:11:00 Test Item Value Reference Range Interpretation Comments AGAP (test code = AGAP) 14.4 10.0-20.0 [facility] Hospital[id number] 09:11:00 Test Item Value Reference Range Interpretation Comments eGFR (test code = eGFR) 94 [facility]DYKSZPMGECBD7752-61-41 09:11:00 Test Item Value Reference Range Interpretation Comments BUN (test code = BUN) 10 7-22 [facility] HospitalYlwhpigXTKCAFQYHIOT3263-34-02 09:11:00 Test Item Value Reference Range Interpretation Comments Creatinine Lvl (test code = Creatinine 0.71 0.50-1.40 Lvl) [facility]XyiduwxOGJUYRBGSJWB1488-55-18 09:11:00 Test Item Value Reference Range Interpretation Comments Sodium Lvl (test code = Sodium Lvl) 134 135-145 [facility] HospitalZwvznlaOYANTTAIQHXE6235-06-37 09:11:00 Test Item Value Reference Range Interpretation Comments Potassium Lvl (test code = Potassium 3.4 3.5-5.1 Lvl) [facility] HospitalCycgvswZMZBULNCLDEZ3298-12-07 09:11:00 Test Item Value Reference Range Interpretation Comments Chloride Lvl (test code = Chloride Lvl) 100 95-109 [facility] HospitalPbv[id number] 09:11:00 Test Item Value Reference Range Interpretation Comments Glucose Lvl (test code = Glucose Lvl) 83 70-99 [facility] [id number] 09:11:00 Test Item Value Reference Range Interpretation Comments Troponin-I (test code = Troponin-I) no gt <=0.40 [facility]CHEM [id number] 09:11:00 Test Item Value Reference Range Interpretation Comments Phosphorus (test code = Phosphorus) 2.4 2.5-4.5 [facility]MOLE[facility]ULAR [id number] 03:37:00 Test Item Value Reference Range Interpretation Comments Source Respiratory Nasophrngl Swb Panel PCR (test code = *NA*(02/10/19 10:37 PM) Source Respiratory Panel PCR) [facility] [id number] 03:37:00 Test Item Value Reference Range Interpretation Comments Influenza A PCR (test Negative (02/10/19 code = Influenza A PCR) 10:37 PM) [facility] [id number] 03:37:00 Test Item Value Reference Range Interpretation Comments Influenza B PCR (test Negative (02/10/19 code = Influenza B PCR) 10:37 PM) [facility] [id number] 03:37:00 Test Item Value Reference Range Interpretation Comments RSV PCR (test code = Negative (02/10/19 10:37 RSV PCR) PM) [facility]BA[facility] - [id number] 00:18:00 Test Item Value Reference Range Interpretation Comments Source Strep (test code Urine *NA*(02/10/19 = Source Strep) 7:18 PM) [facility] - [id number] 00:18:00 Test Item Value Reference Range Interpretation Comments Strep pneumoniae Ag Negative (02/10/19 (test code = Strep 7:18 PM) pneumoniae Ag) [facility] [id number] 00:18:00 Test Item Value Reference Range Interpretation Comments UA Urobilinogen (test code = UA <=1.0 mg/dL 0.1-1.0 Urobilinogen) [facility] [id number] 00:18:00 Test Item Value Reference Range Interpretation Comments UA Sq Epi (test code = UA Sq Epi) None [facility]en [facility] [id number] 00:18:00 Test Item Value Reference Range Interpretation Comments UA WBC (test code = UA WBC) 1 <=5 [facility] AND [id number] 00:18:00 Test Item Value Reference Range Interpretation Comments UA Mucus (test code = UA Mucus) Many /LPF [facility] AND [id number] 00:18:00 Test Item Value Reference Range Interpretation Comments UA Leuk Est (test Negative (02/10/19 7:18 code = UA Leuk Est) PM) [facility] AND [id number] 00:18:00 Test Item Value Reference Range Interpretation Comments UA Nitrite (test code Negative (02/10/19 7:18 = UA Nitrite) PM) [facility] AND [id number] 00:18:00 Test Item Value Reference Range Interpretation Comments UA RBC (test code = UA RBC) 8 <=2 [facility] AND [id number] 00:18:00 Test Item Value Reference Range Interpretation Comments UA Bili (test code = Negative *NA*(02/10/19 UA Bili) 7:18 PM) [facility] AND [id number] 00:18:00 Test Item Value Reference Range Interpretation Comments UA Blood (test code = Negative (02/10/19 7:18 UA Blood) PM) [facility] AND [id number] 00:18:00 Test Item Value Reference Range Interpretation Comments UA Turbidity (test code Slight *ABN*(02/10/19 = UA Turbidity) 7:18 PM) [facility] AND [id number] 00:18:00 Test Item Value Reference Range Interpretation Comments UA Color (test code = Brook *ABN*(02/10/19 UA Color) 7:18 PM) [facility] AND [id number] 00:18:00 Test Item Value Reference Range Interpretation Comments UA Spec Grav (test code = UA Spec 1.024 1 Grav) [facility] AND [id number] 00:18:00 Test Item Value Reference Range Interpretation Comments UA Glucose (test code = UA Negative mg/dL Glucose) [facility] AND [id number] 00:18:00 Test Item Value Reference Range Interpretation Comments UA Protein (test code = UA Protein) 100 mg/dL [facility] AND [id number] 00:18:00 Test Item Value Reference Range Interpretation Comments UA pH (test code = UA pH) 5.0 1 5.0-8.0 [facility] AND [id number] 00:18:00 Test Item Value Reference Range Interpretation Comments UA Ketones (test code = UA Ketones) 20 mg/dL [facility], TxCARDIAC [id number] 23:01:00 Test Item Value Reference Range Interpretation Comments BNP (test code = BNP) 46 [facility] [id number] 23:01:00 Test Item Value Reference Range Interpretation Comments eGFR (test code = eGFR) 86 [facility]2019-05-28 23:01:00 Test Item Value Reference Range Interpretation Comments BUN (test code = BUN) 14 7-22 [facility]2019-05-28 23:01:00 Test Item Value Reference Range Interpretation Comments Creatinine Lvl (test code = Creatinine 0.87 0.50-1.40 Lvl) [facility]2019-05-28 23:01:00 Test Item Value Reference Range Interpretation Comments Sodium Lvl (test code = Sodium Lvl) 133 135-145 [facility]2019-05-28 23:01:00 Test Item Value Reference Range Interpretation Comments Potassium Lvl (test code = Potassium 4.0 3.5-5.1 Lvl) [facility]2019-05-28 23:01:00 Test Item Value Reference Range Interpretation Comments CO2 (test code = CO2) 25 24-32 [facility]2019-05-28 23:01:00 Test Item Value Reference Range Interpretation Comments Calcium Lvl (test code = Calcium Lvl) 8.3 8.5-10.5 [facility]2019-05-28 23:01:00 Test Item Value Reference Range Interpretation Comments Chloride Lvl (test code = Chloride Lvl) 97 95-109 [facility]2019-05-28 23:01:00 Test Item Value Reference Range Interpretation Comments ALT (test code = ALT) 20 <=65 [facility]2019-05-28 23:01:00 Test Item Value Reference Range Interpretation Comments Total Protein (test code = Total 7.2 6.4-8.4 Protein) [facility]2019-05-28 23:01:00 Test Item Value Reference Range Interpretation Comments Albumin Lvl (test code = Albumin Lvl) 2.4 3.5-5.0 [facility]2019-05-28 23:01:00 Test Item Value Reference Range Interpretation Comments AST (test code = AST) 19 <=37 [facility]2019-05-28 23:01:00 Test Item Value Reference Range Interpretation Comments Bili Total (test code = Bili Total) 0.8 0.2-1.3 [facility]2019-05-28 23:01:00 Test Item Value Reference Range Interpretation Comments Alk Phos (test code = Alk Phos) 51 39-136 [facility]2019-05-28 23:01:00 Test Item Value Reference Range Interpretation Comments Glucose Lvl (test code = Glucose Lvl) 99 70-99 [facility]2019-05-28 23:01:00 Test Item Value Reference Range Interpretation Comments A/G Ratio (test code = A/G Ratio) 0.5 1 0.7-1.6 [facility]2019-05-28 23:01:00 Test Item Value Reference Range Interpretation Comments Globulin (test code = Globulin) 4.8 2.7-4.2 [facility]2019-05-28 23:01:00 Test Item Value Reference Range Interpretation Comments B/C Ratio (test code = B/C Ratio) 16 1 6-25 [facility]2019-05-28 23:01:00 Test Item Value Reference Range Interpretation Comments AGAP (test code = AGAP) 15.0 10.0-20.0 [facility]2019-05-28 23:01:00 Test Item Value Reference Range Interpretation Comments Lactic Acid Lvl (test code = Lactic 1.0 0.5-2.2 Acid Lvl) [id number] 23:01:00 Test Item Value Reference Range Interpretation Comments Hgb (test code = Hgb) 11.3 14.0-18.0 [facility] [id number] 23:01:00 Test Item Value Reference Range Interpretation Comments WBC (test code = WBC) 4.4 3.7-10.4 [facility] HeightsTgxesdcOIWVGGMFAH5429-14-25 23:01:00 Test Item Value Reference Range Interpretation Comments MCV (test code = MCV) 107.0 80.0-94.0 [facility] He[id number] 23:01:00 Test Item Value Reference Range Interpretation Comments Hct (test code = Hct) 33.1 42.0-54.0 [facility] HeightsCnwxptnFTKECMDGEZ6267-00-37 23:01:00 Test Item Value Reference Range Interpretation Comments RBC (test code = RBC) 3.10 4.70-6.10 [facility] HeightsUuudztuUNSNQHGRMV8664-19-02 23:01:00 Test Item Value Reference Range Interpretation Comments Platelet (test code = Platelet) 356 133-450 [facility] HeightsMaauccxZYAKNUEHNV0206-50-23 23:01:00 Test Item Value Reference Range Interpretation Comments MCHC (test code = MCHC) 34.1 32.0-36.0 [facility] HeightsSieuocdTZMUNEUJUV8446-78-20 23:01:00 Test Item Value Reference Range Interpretation Comments MCH (test code = MCH) 36.5 pg 27.0-31.0 [facility] HeightsVkrqsacAXZVAVGNJZ7004-81-50 23:01:00 Test Item Value Reference Range Interpretation Comments RDW (test code = RDW) 21.0 11.5-14.5 [facility] HeightsYvvuwfnCTWSIXQYZY5885-64-85 23:01:00 Test Item Value Reference Range Interpretation Comments MPV (test code = MPV) 8.5 7.4-10.4 [facility] HeightsXdbgoudGWRVFDSHBW3591-15-14 23:01:00 Test Item Value Reference Range Interpretation Comments Monocytes # (test code = Monocytes #) 0.7 <=0.8 [facility] HeightsLizdwpvYKBTBBCYYO3952-92-06 23:01:00 Test Item Value Reference Range Interpretation Comments Lymphocytes # (test code = Lymphocytes 0.5 1.0-5.5 #) [facility] H[id number] 23:01:00 Test Item Value Reference Range Interpretation Comments Macrocyte (test code = 1+ *ABN*(02/10/19 Macrocyte) 6:01 PM) [facility] HeightsAqtgvyfGTRTYWZNEY9551-10-04 23:01:00 Test Item Value Reference Range Interpretation Comments Segs (test code = Segs) 71.6 45.0-75.0 [facility] HeightsXfruqnnIJHMDUUKCJ8692-25-58 23:01:00 Test Item Value Reference Range Interpretation Comments Neutrophils # (test code = Neutrophils 3.1 1.5-8.1 #) [facility] HeightsPabuybrQDAJDDFOTE9859-41-72 23:01:00 Test Item Value Reference Range Interpretation Comments Basophils (test code = Basophils) 0.4 <=1.0 [facility] HeightsTqdqzpaZWPYIHQFND7048-49-51 23:01:00 Test Item Value Reference Range Interpretation Comments Eosinophils (test code = Eosinophils) 0.1 <=4.0 [facility] HeightsDurjvscNEXVVJSTCG3620-67-27 23:01:00 Test Item Value Reference Range Interpretation Comments Lymphocytes (test code = Lymphocytes) 11.6 20.0-40.0 [facility] HeightsNngbazmSVXICEBIRF5775-19-28 23:01:00 Test Item Value Reference Range Interpretation Comments Monocytes (test code = Monocytes) 16.3 2.0-12.[address] [facility]
[2023-08-12 08:10] LABS: Absolute Lymphocytes (CBC) 1.4 K/uL (0.7-4.9); Hematocrit 28.6 % (39.6-49.0); Lymphocytes % 26.8 % (15.3-44.8); MCV 101.8 fL (80-100); MPV 10.3 fL (7.6-11.3); Platelets 221 thou/uL (152-406); RBC Red Blood Cell Count 2.81 M/uL (4.33-5.43)
--- NOTE | 2023-08-12 08:19 | RAD REPORT ---
EXAM DESCRIPTION: RAD - Chest Single View - 08/12/2023 8:12 am CLINICAL HISTORY: CHEST PAIN Chest pain. COMPARISON: Chest Single View dated 08/05/2023; Chest Single View dated 12/17/2022; Chest Single View dated 09/28/2022; Chest Single View dated 12/15/2021; Chest For Pe Angio dated 12/17/2022 FINDINGS: Portable technique limits examination quality. Small calcified granuloma is present in the right lower lobe. The lungs are otherwise clear. The hear t is normal in size. No displaced fractures. IMPRESSION: No acute intrathoracic process suspected.
[2023-08-12 08:23] LABS: Protime INR 1.32
[2023-08-12] MEDS ORDERED: ASPIRIN 81 MG CHEWABLE TABLET ONE (08:38)
[2023-08-12 08:45] LABS: Albumin 3.2 g/dL (3.4-5.0); Bilirubin Direct 0.2 mg/dL (0-0.2); Bilirubin Indirect, Calculated 0.3 mg/dL (0.2-0.8); Bilirubin Total 0.5 mg/dL (0.2-1.0); Magnesium 2.1 mg/dL (1.6-2.4); Potassium 3.5 mEq/L (3.5-5.1); Protein, Total 7.7 g/dL (6.4-8.2); Thyroid Stimulating Hormone 0.236 uIU/mL (0.358-3.740); Troponin High Sensitivity 4.9 pg/mL (<58.9)
[2023-08-12 08:56] LABS: SARS-COV-2 RT PCR NEGATIVE (NEGATIVE)
[2023-08-12 09:02] LABS: Specific Gravity 1.023 (1.005-1.030); Urine Bacteria None Seen /HPF (<20); Urine Bilirubin NEGATIVE (Negative); Urine Blood Negative (Negative); Urine Clarity Turbid (Clear); Urine Color Yellow (Yellow); Urine Glucose NEGATIVE (Negative); Urine Mucus 4+ /HPF (None Seen); Urine Protein 1+ (Negative); Urine RBC <5 /HPF (None Seen); Urine Urobilinogen Normal (Normal); Urine pH 5.5 (5.0-7.0)
--- NOTE | 2023-08-12 10:20 | EDPHYS ---
[facility]: Michael Grant Age: 77 yrs Sex: Male : 1945 Arrival Date: 08/12/2023 Time: 07:34 Bed 13 Private MD: ED Physician Kain Moreno HPI: 08/12 07:46 This 77 yrs old Male presents to ER via Ambulatory with complaints of Chest Pain. snw 07:46 The patient or guardian reports chest pain that is located primarily in the substernal snw area. Onset: gradually, yesterday, and became worse this morning. Historical: - Allergies: 07:45 No Known Allergies; hb - PMHx: 07:45 GERD; Rheumatoid Arthritis; Myocardial infarction; High Cholesterol; Headaches; Anemia; hb Thyroid problem; - PSHx: 07:45 cardiac stents X 5; kyphoplasty; hb - Immunization history:: Adult Immunizations up to date. - Social history:: Smoking status: unknown. ROS: 07:45 Constitutional: Negative for fever, chills, and weight loss, Eyes: Negative for injury, snw pain, redness, and discharge, ENT: Negative for injury, pain, and discharge, Neck: Negative for injury, pain, and swelling, 07:45 Respiratory: Negative for shortness of breath, cough, wheezing, and pleuritic chest pain, Abdomen/GI: Negative for abdominal pain, nausea, vomiting, diarrhea, and constipation, Back: Negative for injury and pain, : Negative for injury, bleeding, discharge, and swelling, MS/Extremity: Negative for injury and deformity, Skin: Negative for injury, rash, and discoloration, Neuro: Negative for headache, weakness, numbness, tingling, and seizure, Psych: Negative for depression, anxiety, suicide ideation, homicidal ideation, and hallucinations, 07:45 Cardiovascular: Positive for chest pain, of the chest, edema, Exam: 07:42 Head/Face: Normocephalic, atraumatic. snw 07:42 ENT: Nares patent. No nasal discharge, no septal abnormalities noted. Tympanic membranes are normal and external auditory canals are clear. Oropharynx with no redness, swelling, or masses, exudates, or evidence of obstruction, uvula midline. Mucous membranes moist. Neck: Trachea midline, no thyromegaly or masses palpated, and no cervical lymphadenopathy. Supple, full range of motion without nuchal rigidity, or vertebral point tenderness. No Meningismus. Chest/axilla: Normal chest wall appearance and motion. Nontender with no deformity. No lesions are appreciated. 07:42 Respiratory: Lungs have equal breath sounds bilaterally, clear to auscultation and percussion. No rales, rhonchi or wheezes noted. No increased work of breathing, no retractions or nasal flaring. Abdomen/GI: Soft, non-tender, with normal bowel sounds. No distension or tympany. No guarding or rebound. No evidence of tenderness throughout. Back: No spinal tenderness. No costovertebral tenderness. Full range of motion. MS/ Extremity: Pulses equal, no cyanosis. Neurovascular intact. Full, normal range of motion. 07:42 Neuro: Awake and alert, GCS 15, oriented to person, place, time, and situation. Cranial nerves II-XII grossly intact. Motor strength 5/5 in all extremities. Sensory grossly intact. Cerebellar exam normal. Normal gait. Psych: Awake, alert, with orientation to person, place and time. Behavior, mood, and affect are within normal limits. 07:42 Constitutional: The patient appears alert, awake, listless, 07:42 Eyes: Conjunctiva: pale, 07:42 Cardiovascular: Rate: normal, Rhythm: regular, Pulses: no pulse deficits are appreciated, Heart sounds: normal, no murmur, Edema: pedal edema, that is moderate, 07:42 Skin: Appearance: Color: pale, Temperature: normal temperature, Moisture: dry, rash "lupus skin", Vital Signs: 07:44 BP 120 / 58; Pulse 59; Resp 15; Temp 98.2; Pulse Ox 100% on R/A; Weight 72.57 kg; hb Height 5 ft. 9 in. ; Pain 4/10; 07:55 BP 110 / 63; Pulse 55; Resp 18; Pulse Ox 99% on R/A; Pain 4/10; tm6 09:02 BP 100 / 61; Pulse 53; Pulse Ox 100% on R/A; tm6 09:40 BP 111 / 59; Pulse 53; Pulse Ox 100% on R/A; tm6 10:12 BP 114 / 60; Pulse 51; Pulse Ox 100% on R/A; tm6 11:06 BP 96 / 63; Pulse 49; Resp 15; Pulse Ox 100% ; tm6 12:26 BP 96 / 55; Pulse 50; Resp 13; Pulse Ox 100% on R/A; tm6 13:46 BP 101 / 59; Pulse 50; Resp 12; Pulse Ox 100% on R/A; tm6 07:44 Body Mass Index 23.63 (72.57 kg, 175.26 cm) hb 07:44 Pain Scale: Adult hb 07:55 Pain Scale: Adult tm6 MDM: 07:37 Patient medically screened. snw 07:44 Differential diagnosis: abnormal EKG, acute myocardial infarction, coronary artery snw disease congestive heart failure bronchitis, pneumonia gastritis. The patient was given aspirin in the Emergency Department. YOLIS Risk Score: 1 - patient's age is greater or equal to 65 years, 1 - Three or more CAD risk factors, 1- Known CAD, 1 - ASA use in past 7 days, 1 - Recent [<24hrs] Severe Angina, TOTAL SCORE = 5. Data reviewed: vital signs, nurses notes. 07:46 Counseling: I had a detailed discussion with the patient and/or guardian regarding the snw need for further work-up and treatment in the hospital. ED course: sees Dr. Acosta and Dr. Mendoza. 09:04 ED course: Spouse would like pt transferred to [facility] for Continuity of care. snw Initiation started. 09:51 ED course: Spouse asked to have the ED MD see patient. Dr. Moreno notified. snw 10:19 I considered the following discharge prescriptions or medication management in the [facility] emergency department Medications were administered in the Emergency Department. See MAR. Historians other than the Patient: Spouse/Significant Other: . Care significantly affected by the following chronic conditions: Hypertension, Lupus. 08/12 07:42 Order name: Basic Metabolic Panel; Complete Time: 08:51 snw 08/12 07:42 Order name: CBC with Diff; Complete Time: 08:51 snw 08/12 07:42 Order name: LFT's; Complete Time: 08:51 snw 08/12 07:42 Order name: Magnesium; Complete Time: 08:51 snw 08/12 07:42 Order name: NT PRO-BNP; Complete Time: 08:51 snw 08/12 07:42 Order name: PT-INR; Complete Time: 08:51 snw 08/12 07:42 Order name: Troponin HS; Complete Time: 08:51 snw 08/12 07:42 Order name: TSH; Complete Time: 08:51 snw 08/12 07:42 Order name: TS; Complete Time: 08:57 snw 08/12 07:42 Order name: Urine W/Microscopic (UAM); Complete Time: 09:03 snw 08/12 07:45 Order name: COVID-19/FLU A+B; Complete Time: 08:57 snw 08/12 11:53 Order name: Basic Metabolic Panel EDMS 08/12 11:53 Order name: CBC with Automated Diff EDMS 08/12 11:53 Order name: Troponin High Sensitivity EDMS 08/12 07:42 Order name: XRAY Chest (1 view); Complete Time: 08:51 snw 08/12 07:42 Order name: EKG; Complete Time: 07:43 snw 08/12 11:53 Order name: CONS Physician Consult EDMS 08/12 07:42 Order name: Cardiac monitoring; Complete Time: 07:48 snw 08/12 07:42 Order name: EKG - Nurse/Tech; Complete Time: 07:48 snw 08/12 07:42 Order name: IV Saline Lock; Complete Time: 07:57 snw 08/12 07:42 Order name: Labs collected and sent; Complete Time: 07:57 snw 08/12 07:42 Order name: O2 Per Protocol; Complete Time: 07:48 snw 08/12 07:42 Order name: O2 Sat Monitoring; Complete Time: 07:48 snw EC:48 Rate is 58 beats/min. Rhythm is regular. [place] interval is normal. QRS interval is snw prolonged. T waves are Inverted in lead aVR. Clinical impression: NSR w/ Non-specific ST/T Changes. Administered Medications: 08:29 Drug: Aspirin PO Chewable Tablet 324 mg PO once; 81 mg tablets x 4 Route: PO; tm6 Disposition: 12:13 I reviewed the patient's care provided by the Advanced Practice Provider and agree with ms3 the diagnosis and treatment plan. Disposition Summary: 08/12/23 10:19 Hospitalization Ordered Notes: Hospitalization Status: Observation snw Provider: Edwin Salas Location: Telemetry/MedSurg (observation) snw Condition: Stable snw Problem: an acute exacerbation snw Symptoms: are unchanged snw Bed/Room Type: Standard snw Room Assignment: 228(08/12/23 13:08) bd Diagnosis - Chest pain, unspecified snw - Anemia, unspecified snw Forms: - Medication Reconciliation Form snw - SBAR form snw - Leadership Thank You Letter snw Signatures: Dispatcher [employer] EDMS Maria Guadalupe Beltrán Shelly, CHART CLERK-C CHART CLERK-Csnw Mayra Calhoun, RN RN Kain Moreno DO DO ms3 Abel Porter RN RN tm6 Corrections: (The following items were deleted from the chart) 13:08 10:19 snw bd
--- NOTE | 2023-08-12 10:20 | ER ---
Nurse's Notes [facility] Name: Michael Grant Age: 77 yrs Sex: Male : 1945 Arrival Date: 08/12/2023 Time: 07:34 Bed 13 Private MD: Diagnosis: Chest pain, unspecified;Anemia, unspecified Presentation: 08/12 07:44 Chief complaint: Intermittent midsternal chest pain x 2 days. Hx of DE + stent hb placement. Coronavirus screen: At this time, the client does not indicate any symptoms associated with coronavirus-19. Ebola Screen: No symptoms or risks identified at this time. Initial Sepsis Screen: Does the patient meet any 2 criteria? No. Patient's initial sepsis screen is negative. Does the patient have a suspected source of infection? No. Patient's initial sepsis screen is negative. Risk Assessment: Do you want to hurt yourself or someone else? Patient reports no desire to harm self or others. Onset of symptoms was August 11, 2023. 07:44 Method Of Arrival: Ambulatory hb 07:44 Acuity: LEIF 3 hb Historical: - Allergies: 07:45 No Known Allergies; hb - PMHx: 07:45 GERD; Rheumatoid Arthritis; Myocardial infarction; High Cholesterol; Headaches; Anemia; hb Thyroid problem; - PSHx: 07:45 cardiac stents X 5; kyphoplasty; hb - Immunization history:: Adult Immunizations up to date. - Social history:: Smoking status: unknown. Screenin:55 [facility] ED Fall Risk Assessment (Adult) History of falling in the last 3 months, tm6 including since admission No falls in past 3 months (0 pts). Abuse screen: Denies threats or abuse. Denies injuries from another. Nutritional screening: No deficits noted. Tuberculosis screening: No symptoms or risk factors identified. Assessment: 07:55 General: Appears in no apparent distress. Behavior is calm, cooperative, appropriate tm6 for age. Pain: Complains of pain in chest Pain radiates to right lateral anterior chest Pain currently is 4 out of 10 on a pain scale. Pain began 1 day ago. Neuro: No deficits noted. Level of Consciousness is awake, alert, obeys commands, Oriented to person, place, time, situation. Cardiovascular: Reports chest pain, Capillary refill < 3 seconds Patient's skin is warm and dry. Rhythm is sinus bradycardia Chest pain. Respiratory: Airway is patent Respiratory effort is even, unlabored, Respiratory pattern is regular, symmetrical. GI: Abdomen is flat, non-distended, Abd is soft and non tender. : No signs and/or symptoms were reported regarding the genitourinary system. EENT: No signs and/or symptoms were reported regarding the EENT system. Derm: No signs and/or symptoms reported regarding the dermatologic system. Musculoskeletal: No signs and/or symptoms reported regarding the musculoskeletal system. 09:03 Reassessment: Patient appears in no apparent distress at this time. Patient and/or tm6 family updated on plan of care and expected duration. Pain level reassessed. Patient is alert, oriented x 3, equal unlabored respirations, skin warm/dry/pink. 09:40 Reassessment: Patient appears in no apparent distress at this time. Patient and/or tm6 family updated on plan of care and expected duration. Pain level reassessed. 10:12 Reassessment: Patient appears in no apparent distress at this time. Patient and/or tm6 family updated on plan of care and expected duration. Pain level reassessed. Patient is alert, oriented x 3, equal unlabored respirations, skin warm/dry/pink. 11:06 Reassessment: Patient appears in no apparent distress at this time. Patient and/or tm6 family updated on plan of care and expected duration. Pain level reassessed. Patient is alert, oriented x 3, equal unlabored respirations, skin warm/dry/pink. 12:27 Reassessment: Patient appears in no apparent distress at this time. No changes from tm6 previously documented assessment. Patient and/or family updated on plan of care and expected duration. Pain level reassessed. Vital Signs: 07:44 BP 120 / 58; Pulse 59; Resp 15; Temp 98.2; Pulse Ox 100% on R/A; Weight 72.57 kg; hb Height 5 ft. 9 in. ; Pain 4/10; 07:55 BP 110 / 63; Pulse 55; Resp 18; Pulse Ox 99% on R/A; Pain 4/10; tm6 09:02 BP 100 / 61; Pulse 53; Pulse Ox 100% on R/A; tm6 09:40 BP 111 / 59; Pulse 53; Pulse Ox 100% on R/A; tm6 10:12 BP 114 / 60; Pulse 51; Pulse Ox 100% on R/A; tm6 11:06 BP 96 / 63; Pulse 49; Resp 15; Pulse Ox 100% ; tm6 12:26 BP 96 / 55; Pulse 50; Resp 13; Pulse Ox 100% on R/A; tm6 13:46 BP 101 / 59; Pulse 50; Resp 12; Pulse Ox 100% on R/A; tm6 07:44 Body Mass Index 23.63 (72.57 kg, 175.26 cm) hb 07:44 Pain Scale: Adult hb 07:55 Pain Scale: Adult tm6 Vitals: 07:55 Cardiac Rhythm Assessment Sinus miya. tm6 ED Course: 07:36 Patient arrived in ED. rg4 07:36 Ophelia Borrero FNP-C is PHCP. snw 07:36 Kain Moreno DO is Attending Physician. snw 07:37 Abel Porter, MIKE is Primary Nurse. tm6 07:45 Triage completed. hb 07:46 Arm band placed on. hb 07:55 Patient has correct armband on for positive identification. Placed in gown. Bed in low tm6 position. Call light in reach. Side rails up X2. Provided Education on: need for tests. Client placed on continuous cardiac and pulse oximetry monitoring. NIBP monitoring applied. desk monitor on. Noise minimized. 07:55 No provider procedures requiring assistance completed. Patient maintains SpO2 tm6 saturation greater than 95% on room air. 07:57 COVID-19/FLU A+B Sent. bc6 07:57 TS Sent. bc6 07:57 TSH Sent. bc6 07:57 Basic Metabolic Panel Sent. bc6 07:57 CBC with Diff Sent. bc6 07:57 LFT's Sent. bc6 07:57 Magnesium Sent. bc6 07:57 NT PRO-BNP Sent. bc6 07:57 PT-INR Sent. bc6 07:57 Troponin HS Sent. bc6 07:58 Inserted saline lock: 20 gauge in right forearm, using aseptic technique. Blood bc6 collected. 08:14 XRAY Chest (1 view) In Process Unspecified. EDMS 09:21 initiated transfer to [facility] as requested by pt. bd 10:18 Edwin Salas MD is Hospitalizing Provider. snw 13:45 Patient admitted, IV remains in place. tm6 Administered Medications: 08:29 Drug: Aspirin PO Chewable Tablet 324 mg PO once; 81 mg tablets x 4 Route: PO; tm6 Medication: 07:55 VIS not applicable for this client. tm6 Outcome: 10:19 Decision to Hospitalize by Provider. snw 13:43 Admitted to Med/surg accompanied by tech, room 228, Report called to Katelin MCKEON tm6 13:43 Condition: stable 13:43 Instructed on the need for admit, Demonstrated understanding of instructions, 14:10 Patient left the ED. tm6 Signatures: Dispatcher [employer] EDMS Maria Guadalupe Beltrán Shelly, PATIENT CARE-C PATIENT CARE-Csnw Mayra Calhoun, RN RN Bridgette Lafleur rg4 Gill Simon 6 Abel Porter, RN RN tm6
[2023-08-12] MEDS ORDERED: NITROGLYCERIN 0.4 MG/TAB SL PRN (11:46)
[2023-08-12 13:12] VITALS: BMI 23.4
[2023-08-12] MEDS ORDERED: SUCRALFATE 1 GM TABLET PO PRN (17:43)
[2023-08-12] MEDS: ATORVASTATIN 40 MG TAB PO SCH (18:05)
[2023-08-12] MEDS: ACETAMINOPHEN 500 MG TAB PO PRN ×2 (18:06→23:36)
--- NOTE | 2023-08-12 18:20 | P.HP ---
Certification for Inpatient Patient admitted to: Observation With expected LOS: <2 Midnights Patient will require the following post-hospital care: None Practitioner: I am a practitioner with admitting privileges, knowledge of patient current condition, hospital course, and medical plan of care. Services: Services provided to patient in accordance with Admission requirements found in Title 42 Section 412.3 of the Code of Federal Regulations <Jewell Salazar - Last Filed: 08/12/23 18:49> Patient History Date of Service: 08/12/23 <EriccoltonJewell - Last Filed: 08/12/23 18:49> Date of Service: 08/12/23 Reason for admission: chest pain r/o ACS History of Present Illness: 77 yrs old Male with past medical history of 5 GERD; Rheumatoid Arthritis; Myocardial infarction; High Cholesterol; Headaches; Anemia; Thyroid problem presents to ER via Ambulatory with complaints of Chest Pain. He report chest pain is substernal, non readiating. Constant. he reports chest pain is getting progressively worse. He reports history of [place] with x5 cardiac stents. He denies shortness of breath, chest pain radiation, NVD, fever, chills . Lab evaluation H/H 9.6, HCT 28.6, mcv 101.8. BNP 740, trop normal 4.9. Initial vitals: BP 120 / 58; Pulse 59; Resp 15; Temp 98.2; Pulse Ox 100% on R/A; Weight 72.57 kg; Height 5 ft. 9 in. ; Pain 4/10 EKG Rate is 58 beats/min. Rhythm is regular. VT interval is normal. QRS interval is prolonged. T waves are Inverted in lead aVR. Clinical impression: NSR w/ Non-specific ST/T Changes. CXR IMPRESSION: No acute intrathoracic process suspected Michael will be admitted to hospitalist service for chest pain r/o ACS. - Past Medical/Surgical History Has patient received pneumonia vaccine in the past: Yes Diabetic: No -: shingles -: heart attack 8 yrs ago -: gerd -: HLD -: Lupus -: RA -: Polychondritis -: Nodule on right lung -: stent placement X2 but has a total of 3 stents -: kypohplasty 2022: w/ spinal fusion - Social History Smoking Status: Unknown if ever smoked Alcohol use: No CD- Drugs: No Caffeine use: Yes Place of Residence: [place] <ScarDeya - Last Filed: 08/12/23 19:39> Allergies No Known Allergies Allergy (Verified 09/28/22 20:43) Home Medications: Aspirin Chewable [Aspirin Chewable*] 81 mg PO DAILY 09/28/22 Atorvastatin Calcium 40 mg PO DAILY 09/28/22 Docusate [Colace Cap*] 50 mg PO DAILY 09/28/22 Famotidine [Pepcid*] 40 mg PO BEDTIME 09/28/22 Hydroxychloroquine [Plaquenil*] 200 mg PO BID 09/28/22 Montelukast Sodium 10 mg PO BEDTIME 09/28/22 Pantoprazole [Protonix Tab*] 40 mg PO DAILY 09/28/22 Sucralfate [Carafate*] 1 g PO DAILY PRN 09/28/22 predniSONE [Prednisone*] 5 mg PO SEECOM 09/28/22 Review of Systems General: Unremarkable Eyes: Unremarkable ENT: Unremarkable Respiratory: Unremarkable Cardiovascular: Chest Pain Gastrointestinal: Unremarkable Genitourinary: Unremarkable Musculoskeletal: Unremarkable Integumentary: Unremarkable Lymphatics: Unremarkable <ScarDeya - Last Filed: 08/12/23 19:39> Physical Examination - Studies Laboratory Data (last 24 hrs) 08/12/23 08/12/23 08/12/23 07:50 07:50 07:50 WBC 5.20 Hgb 9.6 L Hct 28.6 L Plt Count 221 PT 14.5 H INR 1.32 Sodium 137 Potassium 3.5 BUN 15 Creatinine 0.78 Glucose 98 Magnesium 2.1 Total Bilirubin 0.5 AST 9 L ALT 16 Alkaline Phosphatase 77 <Jewell Salazar - Last Filed: 08/12/23 18:49> - Vital Signs Temperature: 97.4 F Blood Pressure: 112/54 Pulse: 51 Respirations: 16 Pulse Ox (%): 100 - Physical Exam General: Alert, In no apparent distress, Oriented x3 HEENT: Atraumatic, Normocephalic, PERRLA Neck: Supple, 2+ carotid pulse no bruit, JVD not distended Respiratory: Clear to auscultation bilaterally, Normal air movement Cardiovascular: No edema, Normal pulses, Regular rate/rhythm, Normal S1 S2 Capillary refill: <2 Seconds Gastrointestinal: Normal bowel sounds, Soft and benign Musculoskeletal: No clubbing, No swelling, No contractures Integumentary: No rashes, No breakdown, No significant lesion Neurological: Normal speech, Normal strength at 5/5 x4 extr, Normal tone - Studies Laboratory Data (last 24 hrs) 08/12/23 08/12/23 08/12/23 07:50 07:50 07:50 WBC 5.20 Hgb 9.6 L Hct 28.6 L Plt Count 221 PT 14.5 H INR 1.32 Sodium 137 Potassium 3.5 BUN 15 Creatinine 0.78 Glucose 98 Magnesium 2.1 Total Bilirubin 0.5 AST 9 L ALT 16 Alkaline Phosphatase 77 <Deya Abbott - Last Filed: 08/12/23 19:39> Assessment and Plan - Plan Assessment and plan Chest pain r/o ACS in patient with hx [place] (stent x5) Troponin 4.9, serial pending BNP 740 telemetry ECHO 08/07 showing EF 53%, mild tricuspid regurgitation ASA, statin nitroglycerin PRN consult cardiology macrocytic anemia HH 9.6, HCT 28.6, mcv 101.8 monitor in AM labs Hypothyroidism restart home medication Right lower lobe small calcified granuloma Seen on chest xray Follow up outpatient DVT ppx lovenox Full code LOS 2-3 days Discharge Plan: Home Plan to discharge in: 48 Hours - Advance Directives Does patient have a Living Will: No Does patient have a Durable POA for Healthcare: No Time Spent Managing Pts Care (In Minutes): 55 <Deya Abbott - Last Filed: 08/12/23 19:39>
[2023-08-12] MEDS ORDERED: ALPRAZOLAM 0.5 MG TABLET PO ONE (19:45)
--- NOTE | 2023-08-12 20:16 | CON ---
Date of Consultation: 08/12/2023 Reason For Consultation: Chest pain. History Of Present Illness: 77-year-old male with history of coronary artery disease, status post 5 stents placed in the past, presented with chest pain. This is his second admission in the past 2 wee ks with chest pain. It is left-sided and radiates to the right side and it is severe as per his repo rt earlier this morning and it is better now. 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 Past Medical History: Coronary artery disease, hypertension, dyslipidemia. Medications: Refer to reconciliation sheet for detailed list. Allergies: NO KNOWN DRUG ALLERGIES. Family History: No premature coronary artery disease or cancer. Social History: Does not smoke or drink. Does not use any drugs. Review of Systems: All systems they were reviewed and they were negative except as mentioned in the HPI. Physical Examination: Vital Signs: Reviewed. Head and Neck: Pupils are equal, reactive to light. Intact eye movements. No JVD. No cervical lym phadenopathy. Neck is supple. Thyroid is not enlarged. Lungs: Clear to auscultation bilaterally. No rhonchi, wheezing, or crackles. No accessory muscle u se. Heart: Regular rate and rhythm. No extra sounds. Abdomen: Soft, nontender. Bowel sounds positive. No organomegaly. No masses or hernia. No rigidi ty or rebound. Extremities: No edema, clubbing, or cyanosis. Intact pulses. Skin: No rash or nodule. Neurologic: Alert, awake, oriented x3. No acute focal deficits appreciated. Investigations: Troponins x2 are negative. BUN is 15, creatinine 0.78, and hemoglobin 9.6. Assessment And Recommendations: 1.Chest pain. Second hospitalization in 2 weeks with known history of coronary artery disease. Thi s could be unstable angina. Recommend coronary angiogram. We will proceed tomorrow morning. Discus sed the risks, benefits, and alternatives with the patient and patient agreed to proceed. Continue a spirin for now and further plan after coronary angiogram. 2.Dyslipidemia. Continue Lipitor 40 mg q.h.s. 3.Coronary artery disease with active chest pain. Plan as above. /IFEOMA Voice ID: [id number] Report ID: [id number]
[2023-08-12] MEDS: HYDROXYCHLOROQUINE 200MG TAB PO SCH (20:34)
[2023-08-12] MEDS ORDERED: FAMOTIDINE 20 MG TAB PO SCH (21:00)
[2023-08-12] MEDS ORDERED: MONTELUKAST 10 MG TAB PO SCH (21:00)
[2023-08-12 22:01] LABS: Absolute Lymphocytes (CBC) 1.1 K/uL (0.7-4.9); Hematocrit 23.2 % (39.6-49.0); Lymphocytes % 27.9 % (15.3-44.8); MCV 101.2 fL (80-100); MPV 10.1 fL (7.6-11.3); Platelets 182 thou/uL (152-406); RBC Red Blood Cell Count 2.29 M/uL (4.33-5.43)
[2023-08-12 22:21] LABS: Potassium 3.6 mEq/L (3.5-5.1)
[2023-08-13] MEDS: HYDROXYCHLOROQUINE 200MG TAB PO SCH (08:23)
[2023-08-13] MEDS ORDERED: PANTOPRAZOLE 40MG TABLET PO SCH (09:00)
[2023-08-13] MEDS ORDERED: ENOXAPARIN 40 MG/0.4 ML SQ SCH (09:00)
[2023-08-13] MEDS ORDERED: ASPIRIN EC 81 MG TAB PO SCH (09:00)
[2023-08-13] MEDS ORDERED: [UNRECOGNIZED DRUG - OTHER] PO SCH (09:00)
[2023-08-13] MEDS ORDERED: NA CHLORIDE 0.9% 500 ML ONE (10:34)
[2023-08-13] MEDS ORDERED: LIDOCAINE 1% 20 ML MDV ONE (10:53)
[2023-08-13] MEDS ORDERED: MIDAZOLAM HCL 2 MG/2 ML INJ ONE (10:53)
[2023-08-13] MEDS ORDERED: HEPARIN 5000 UNIT/ML 1 ML VIAL ONE (10:53)
[2023-08-13] MEDS ORDERED: HEPA 1000U/500MLS 2,000 UNIT/1,000 ML BAG IV ONE (10:53)
[2023-08-13] MEDS ORDERED: HEPARIN 10,000 UNIT/10 ML VIAL IV ONE (10:54)
[2023-08-13] MEDS ORDERED: ASPIRIN 325 MG TAB ONE (10:54)
[2023-08-13] MEDS ORDERED: CLOPIDOGREL 75 MG TABLET ONE (10:54)
[2023-08-13] MEDS ORDERED: VERAPAMIL HCL 10 MG/4 ML VIAL IV ONE (10:54)
[2023-08-13] MEDS ORDERED: TICAGRELOR 90 MG TABLET PO ONE (10:55)
[2023-08-13] MEDS ORDERED: FENTANYL CITR 100 MCG/2 ML ONE (10:55)
[2023-08-13 13:44] VITALS: O2SAT 100
--- NOTE | 2023-08-13 14:07 | PN ---
Date of Progress Note: 08/13/2023 Subjective: Seen by bedside. Doing well. Continues to have chest pain on and off. Review of Systems: No nausea, vomiting, diarrhea. No abdominal pain. No dysuria, polyuria, or urinary urgency. All ot her systems reviewed are negative. Physical Examination: Vital Signs: Reviewed. Head and Neck: Pupils are equal, reactive to light. Intact eye movements. No JVD. No cervical lym phadenopathy. Neck: Supple. Thyroid is not enlarged. Lungs: Clear to auscultation bilaterally. No rhonchi, wheezing, or crackles. No accessory muscle u se. Heart: Regular rate and rhythm. No extra sounds. Abdomen: Soft, nontender. Bowel sounds positive. No organomegaly. No masses or hernia. No rigidi ty or rebound. Extremities: No edema, clubbing, cyanosis. Intact pulses. Skin: No rashes. Neurologic: Alert, awake, and oriented x3. No acute focal deficits appreciated. Lymph Nodes: No cervical or axillary lymphadenopathy. Investigations: Labs were reviewed. Troponins are negative. Assessment And Recommendation: 1.Chest pain, status post coronary angiogram, has moderate coronary artery disease. Does not explai n his chest pain, likely his pain is musculoskeletal. No need for intervention at this point. I rec ommend medical management, aspirin, and high-dose statin and patient can be released and follow up wi th his primary strip polisher as an outpatient. 2.Dyslipidemia. Continue statin. Cardiology will sign off. SR/MODL Voice ID: [id number] Report ID: [id number]
--- NOTE | 2023-08-13 15:04 | OP ---
Date of Procedure: 08/13/2023 Surgeon: YO MADISON Procedure Performed: Selective coronary angiogram. Indication: Unstable angina. Access: Right radial artery 6-Gabonese closed with TR band. Complications: None. Bleeding: Less than 20 mL. Description Of Procedure: After risks, benefits, alternatives explained, patient agreed to procedure and signed informed consent. Patient was brought into cardiac catheterization laboratory, prepped a nd draped in the usual sterile fashion. Then I accessed right radial artery using pediatric micropun cture kit, placed 6-Gabonese Slender sheath and took 5-Gabonese [place] 4.0 catheter over a J-wire into the aortic root, engaged left main, took standard views and then in the RCA, took standard views and the n I removed the catheter and the sheath, placed TR band with good hemostasis. Findings: 1.Left main; moderate size and normal. 2.LAD; ostial 20% and then there is a proximal LAD stent that has mid 40% in-stent restenosis. Diag onal branch 1 appears to be jailed from the old procedure 70% ostial, but with the YOLIS-3 flow and th en there is a second stent in the LAD that is widely patent. 3.Left circumflex; it is large and dominant, and in the mid segment, there is 40% stenosis after the takeoff of the OM1 branch and OM1 branch has 30% stenosis and is a dominant artery. 4.RCA; it is small, nondominant with proximal 99%, and then STRATEGIC CLIENT EXECUTIVE and gets collaterals from the LAD. Conclusion: 1.Moderate coronary artery disease of the LAD and left circumflex. 2.Severe RCA stenosis but with collaterals from the left and it is small and nondominant. Recommendations: Medical management and follow up with Dr. Mendoza who is his stonemason helper, and we will give him a CD of the angiogram and to present to his stonemason helper at his next followup. SR/MODL Voice ID: [id number] Report ID: [id number]
[2023-08-13] MEDS: ATORVASTATIN 40 MG TAB PO SCH (17:00)
[2023-08-13 17:13] LABS: Hematocrit 26.4 % (39.6-49.0); Platelets 175 thou/uL (152-406); RBC Red Blood Cell Count 2.62 M/uL (4.33-5.43)
[2023-08-13 17:14] LABS: Absolute Lymphocytes (CBC) 0.6 K/uL (0.7-4.9); MPV 10.2 fL (7.6-11.3)
[2023-08-13 17:15] LABS: RBC Red Blood Cell Count 2.56 M/uL (4.33-5.43)
[2023-08-13 17:25] VITALS: BP 100/56; TEMP 98.3
[2023-08-13 17:35] LABS: Ferritin 1011.9 ng/mL (26-388)
--- NOTE | 2023-08-13 17:50 | P.DS ---
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 HE HAS PLEURITIC CHEST PAIN. I SAW HIM THIS AM AND TOLD HIM THAT CURRENT PAIN IS NOT FROM HEART BUT FROM COSTOCHONDRITIS HE WAS TENDER IN THE RIBS. DR. MADISON DID CANT AND PROVED IT. HE HAS STENTS BUT PATENT AND HE WILL FU WITH ME AT OFFICE. HE WAS GIVEN ONE UNIT OF PACKED RBCS. DC HG IS AT 9 GM. HE GETS BLOOD FROM DR. TREVINO. Vital Signs/Physical Exam: Temp Pulse Resp BP Pulse Ox 98.3 F 61 16 100/56 L 98 08/13/23 16:00 08/13/23 16:00 08/13/23 16:00 08/13/23 16:00 08/13/23 16:00 Laboratory Data at Discharge: WBC 3.00 thou/uL (4.3-10.9) L 08/13/23 16:35 Hgb 9.0 g/dL (13.6-17.9) L D 08/13/23 16:35 Hct 26.4 % (39.6-49.0) L 08/13/23 16:35 Plt Count 175 thou/uL (152-406) 08/13/23 16:35 PT 14.5 SECONDS (9.5-12.5) H 08/12/23 07:50 INR 1.32 08/12/23 07:50 Sodium 138 mEq/L (136-145) 08/12/23 21:35 Potassium 3.6 mEq/L (3.5-5.1) 08/12/23 21:35 BUN 17 mg/dL (7-18) 08/12/23 21:35 Creatinine 0.78 mg/dL (0.70-1.30) 08/12/23 21:35 Glucose 117 mg/dL (74-106) H 08/12/23 21:35 Magnesium 2.1 mg/dL (1.6-2.4) 08/12/23 07:50 Total Bilirubin 0.5 mg/dL (0.2-1.0) 08/12/23 07:50 AST 9 U/L (15-37) L 08/12/23 07:50 ALT 16 U/L (16-61) 08/12/23 07:50 Alkaline Phosphatase 77 U/L (45-117) 08/12/23 07:50 Home Medications: Aspirin Chewable [Aspirin Chewable*] 81 mg PO DAILY 09/28/22 Atorvastatin Calcium 40 mg PO DAILY 09/28/22 Docusate [Colace Cap*] 50 mg PO DAILY 09/28/22 Famotidine [Pepcid*] 40 mg PO BEDTIME 09/28/22 Hydroxychloroquine [Plaquenil*] 200 mg PO BID 09/28/22 Montelukast Sodium 10 mg PO BEDTIME 09/28/22 Pantoprazole [Protonix Tab*] 40 mg PO DAILY 09/28/22 Sucralfate [Carafate*] 1 g PO DAILY PRN 09/28/22 predniSONE [Prednisone*] 5 mg PO SEECOM 09/28/22 Nitroglycerin [Nitrostat*] 0.4 mg SL UD PRN tab 08/13/23 Followup: Avelino Acosta MD [Primary Care Provider] -
--- NOTE | 2023-08-15 15:29 | EKG ---
Test Date: 2023-08-12 Test Time: 07:44:54 Automotive Electrical Helper: LEONCIO MEASUREMENT RESULTS: Intervals: Rate: 58 HI: 144 QRSD: 108 QT: 454 QTc: 445 [place]: P: 62 HI: 144 QRS: -65 T: 51 INTERPRETIVE STATEMENTS: Sinus bradycardia Left anterior fascicular block Abnormal ECG Compared to ECG 08/05/2023 13:34:39 ST (T wave) deviation no longer present Electronically Signed On 08-15-23 15:16:27 MOLD STAMPER by Leander Veras
== END 2023-08-13 18:44 | disposition home or self-care (01) ==
LOC: ER 07:34 → ERHOLD 11:53 → 2ND 13:59
PROVIDERS: ADMIT Hospitalist; ATTEND Hospitalist
PROC: 30233N1 Transfusion of Nonautologous Red Blood Cells into Peripheral Vein, Percutaneous Approach (ICD-10-PCS; principal; 2023-08-12)
PROC: B2111ZZ Fluoroscopy of Multiple Coronary Arteries using Low Osmolar Contrast (ICD-10-PCS; 2023-08-12)
DX: M94.0 Chondrocostal junction syndrome [Tietze] (principal); I25.110 Atherosclerotic heart disease of native coronary artery with unstable angina pectoris; I25.82 Chronic total occlusion of coronary artery; T82.855A Stenosis of coronary artery stent, initial encounter; D53.9 Nutritional anemia, unspecified; J84.10 Pulmonary fibrosis, unspecified; I10 Essential (primary) hypertension; E03.9 Hypothyroidism, unspecified; E78.5 Hyperlipidemia, unspecified; I25.2 Old myocardial infarction; K21.9 Gastro-esophageal reflux disease without esophagitis; M06.9 Rheumatoid arthritis, unspecified; E78.00 Pure hypercholesterolemia, unspecified; M32.9 Systemic lupus erythematosus, unspecified; M94.8X9 Other specified disorders of cartilage, unspecified sites; Z11.52 Encounter for screening for COVID-19; Z79.899 Other long term (current) drug therapy
CPT/HCPCS: 93005; 85025 ×3; 81001; 80048 ×2; 36415 ×2; 86900; 83735; 86850; 85610; 85044; 86901; 80076; 86920; 84443; 84484 ×2; 82728; 82607; 83880; 0240U; 71045; 93454; 76937; 99285; C1893; Q9967; J1644; J2001; G0378 ×5; J7040; 99152; 99153; J2250; J3010

== ENCOUNTER 2024-05-03 07:29 | Emergency (ER) | payer OTHER ==
[2024-05-03] MEDS ORDERED: NA CHLORIDE 0.9% 1,000 ML ONE (08:10)
[2024-05-03] MEDS ORDERED: ASPIRIN 81 MG CHEWABLE TABLET ONE (08:11)
[2024-05-03 08:30] LABS: PT Prothrombin Time 14.7 SECONDS (9.4-12.5); Protime INR 1.32
[2024-05-03 08:31] LABS: Absolute Lymphocytes (CBC) 0.8 K/uL (0.7-4.9); Absolute Monocytes 0.5 K/uL (0.1-1.3); Basophils % 0.4 % (0-1.3); Eosinophils % 0.3 % (0-4.4); Hematocrit 26.4 % (39.6-49.0); Hemoglobin 8.6 g/dL (13.6-17.9); Lymphocytes % 18.1 % (15.3-44.8); MCH 38.2 pg (27.0-35.0); MCHC 32.4 g/dL (32.0-36.0); MCV 117.7 fL (80-100); MPV 9.6 fL (7.6-11.3); Monocytes % 12.3 % (3.3-12.3); Neutrophils % 68.9 % (41.7-73.7); Platelets 135 thou/uL (152-406); RBC Red Blood Cell Count 2.25 M/uL (4.33-5.43); Red Cell Distribution Width 16.7 % (12.1-15.2)
--- NOTE | 2024-05-03 08:40 | RAD REPORT ---
EXAM DESCRIPTION: RAD - Chest Single View - 05/03/2024 8:29 am CLINICAL HISTORY: CHEST PAIN COMPARISON: Chest Single View dated 08/12/2023; Chest Single View dated 08/05/2023; Chest Single Vie w dated 12/17/2022; Chest Single View dated 09/28/2022 FINDINGS: Lines: None. Lungs: No evidence of edema or pneumonia. Pleural: No significant pleural effusions or pneumothorax. Cardiac: The heart size is within normal limits. Mediastinum: Within normal limits. Bones: No acute fractures. Other: None IMPRESSION: No acute cardiopulmonary disease.
[2024-05-03 08:52] LABS: Albumin 3.1 g/dL (3.4-5.0); Albumin/Globulin Ratio 0.9 (1.1-1.8); Anion Gap 8.9 mEq/L (5.0-15.0); Bilirubin Direct 0.2 mg/dL (0-0.2); Bilirubin Indirect, Calculated 0.4 mg/dL (0.2-0.8); Bilirubin Total 0.6 mg/dL (0.2-1.0); Globulin 3.6 g/dL (2.3-3.5); Magnesium 2.2 mg/dL (1.6-2.4); Potassium 3.9 mEq/L (3.5-5.1); Protein, Total 6.7 g/dL (6.4-8.2); Troponin High Sensitivity 4.1 pg/mL (<58.9)
[2024-05-03] MEDS ORDERED: PANTOPRAZOLE 40 MG INJ ONE (08:54)
[2024-05-03 09:15] LABS: Platelet Estimate ADEQ; White Blood Cell Scan OK (OK)
[2024-05-03 09:16] LABS: Anisocytosis 2+; Blood Morphology Comment NOTED (NOT SEEN); Macrocytosis 2+; Teardrop Cell 1+
--- NOTE | 2024-05-03 10:40 | EDPHYS ---
Physician Documentation [facility] Name: Michael Grant Age: 78 yrs Sex: Male : 1945 Arrival Date: 05/03/2024 Time: 07:29 Bed 6 Private MD: ED Physician Merrill Fine HPI: 05/03 08:42 This 78 yrs old Male presents to ER via Ambulatory with complaints of Chest christopher Pain. 08:42 The patient or guardian reports chest pain that is located primarily in the anterior christopher chest wall, bilaterally. Onset: yesterday. The pain does not radiate. Associated signs and symptoms: The patient has no apparent associated signs or symptoms. The chest pain is described as sharp. Duration: The patient or guardian reports multiple episodes, that are intermittent. Modifying factors: The symptoms are alleviated by remaining still, the symptoms are aggravated by movement, palpation of area. Severity of pain: At its worst the pain was moderate in the emergency department the pain is unchanged. The patient has experienced similar episodes in the past, several times, multiple times. Historical: - Allergies: 07:52 No Known Allergies; hb - PMHx: 07:52 Anemia; Rheumatoid Arthritis; High Cholesterol; GERD; Headaches; Myocardial infarction; hb Thyroid problem; - PSHx: 07:52 cardiac stents X 5; kyphoplasty; hb - Immunization history:: Adult Immunizations up to date. - Infectious Disease History:: Denies. - Family history:: not pertinent. - Social history:: Smoking status: Patient denies any tobacco usage or history of. ROS: 08:42 Constitutional: Negative for fever, chills, and weight loss, Eyes: Negative for injury, christopher pain, redness, and discharge, ENT: Negative for injury, pain, and discharge, Neck: Negative for injury, pain, and swelling, Respiratory: Negative for shortness of breath, cough, wheezing, and pleuritic chest pain, Abdomen/GI: Negative for abdominal pain, nausea, vomiting, diarrhea, and constipation, Back: Negative for injury and pain, : Negative for injury, bleeding, discharge, and swelling, Skin: Negative for injury, rash, and discoloration, Neuro: Negative for headache, weakness, numbness, tingling, and seizure, Psych: Negative for depression, anxiety, suicide ideation, homicidal ideation, and hallucinations, Allergy/Immunology: Negative for hives, rash, and allergies, Endocrine: Negative for neck swelling, polydipsia, polyuria, polyphagia, and marked weight changes, Hematologic/Lymphatic: Negative for swollen nodes, abnormal bleeding, and unusual bruising, 08:42 Cardiovascular: Positive for chest pain, of the mid-sternal area, 08:42 Respiratory: Positive for cough, 08:42 MS/extremity: Positive for pain, of the mid-sternal area, Exam: 08:42 Constitutional: This is a well developed, well nourished patient who is awake, alert, christopher and in no acute distress. Head/Face: Normocephalic, atraumatic. Eyes: Pupils equal round and reactive to light, extra-ocular motions intact. Lids and lashes normal. Conjunctiva and sclera are non-icteric and not injected. Cornea within normal limits. Periorbital areas with no swelling, redness, or edema. ENT: Nares patent. No nasal discharge, no septal abnormalities noted. Tympanic membranes are normal and external auditory canals are clear. Oropharynx with no redness, swelling, or masses, exudates, or evidence of obstruction, uvula midline. Mucous membranes moist. Neck: Trachea midline, no thyromegaly or masses palpated, and no cervical lymphadenopathy. Supple, full range of motion without nuchal rigidity, or vertebral point tenderness. No Meningismus. Cardiovascular: Regular rate and rhythm with a normal S1 and S2. No gallops, murmurs, or rubs. Normal PMI, no JVD. No pulse deficits. Respiratory: Lungs have equal breath sounds bilaterally, clear to auscultation and percussion. No rales, rhonchi or wheezes noted. No increased work of breathing, no retractions or nasal flaring. Abdomen/GI: Soft, non-tender, with normal bowel sounds. No distension or tympany. No guarding or rebound. No evidence of tenderness throughout. Back: No spinal tenderness. No costovertebral tenderness. Full range of motion. Male : Normal genitalia with no discharge or lesions. Skin: Warm, dry with normal turgor. Normal color with no rashes, no lesions, and no evidence of cellulitis. MS/ Extremity: Pulses equal, no cyanosis. Neurovascular intact. Full, normal range of motion. Neuro: Awake and alert, GCS 15, oriented to person, place, time, and situation. Cranial nerves II-XII grossly intact. Motor strength 5/5 in all extremities. Sensory grossly intact. Cerebellar exam normal. Normal gait. Psych: Awake, alert, with orientation to person, place and time. Behavior, mood, and affect are within normal limits. 08:42 Chest/axilla: Inspection: normal, Palpation: tenderness, that is moderate, of the mid-sternal area, Axilla: are normal, Lymph nodes: lymphadenopathy is not appreciated, 08:52 ECG was reviewed by the Attending Physician. christopher Vital Signs: 07:47 BP 111 / 57; Pulse 57; Resp 17; Temp 98.1; Pulse Ox 100% on R/A; Pain 7/10; hb 09:18 BP 96 / 55; Pulse 51; Resp 16; Pulse Ox 100% on R/A; mb9 10:19 BP 104 / 59; Pulse 51; Resp 18; Pulse Ox 100% on R/A; mb9 11:02 BP 108 / 62; Pulse 52; Resp 16; Pulse Ox 100% on R/A; mb9 07:47 Pain Scale: Adult hb MDM: 07:30 Patient medically screened. christopher 08:44 Differential diagnosis: abnormal EKG, acute myocardial infarction, acute pericarditis, christopher anxiety, coronary artery disease chest wall pain, Cholelithiasis costochondritis, herpes zoster, pancreatitis, peptic ulcer disease, pericarditis, pneumonia, pulmonary embolus, stable angina, thoracic aortic disection, unstable angina. HEART Score: ECG: Non specific repolarization disturbance / LBTB / PM (1), Age: > or = 65 years (2), Risk Factors: > or = 3 Risk factors for atherosclerotic disease (2), [Hypercholesterolemia] [Hypertension] [+ Family HX] Troponin: < or = 1 x Normal Limit (0). The patient was given aspirin in the Emergency Department. YOLIS Risk Score: 1 - patient's age is greater or equal to 65 years, 1 - Three or more CAD risk factors, [Family Hx], [HTN], [Elevated Cholesterol], 1- Known CAD, 1 - ASA use in past 7 days, 1 - Recent [<24hrs] Severe Angina. Data reviewed: vital signs, nurses notes, lab test result(s), EKG, radiologic studies, plain films. Consideration of Admission/Observation Escalation of care including admission/observation considered. I considered the following discharge prescriptions or medication management in the emergency department Medications were administered in the Emergency Department. See MAR. Independent interpretation of the following test(s) in the Emergency Department EKG: See my EKG interpretation above. Test considered but Not performed: CT: no ct chest. 05/03 07:36 Order name: Basic Metabolic Panel; Complete Time: 09:16 [facility] 05/03 07:36 Order name: CBC with Diff; Complete Time: 10:03 [facility] 05/03 07:36 Order name: LFT's; Complete Time: 09:16 [facility] 05/03 07:36 Order name: Magnesium; Complete Time: 09:16 [facility] 05/03 07:36 Order name: NT PRO-BNP; Complete Time: 09:16 [facility] 05/03 07:36 Order name: PT-INR; Complete Time: 08:50 [facility] 05/03 07:36 Order name: Troponin HS; Complete Time: 09:16 [facility] 05/03 08:52 Order name: Troponin HS: 10 am; Complete Time: 10:39 [facility] 05/03 09:16 Order name: CBC Smear Scan; Complete Time: 10:03 EDMS 05/03 07:36 Order name: XRAY Chest (1 view); Complete Time: 08:50 [facility] 05/03 07:36 Order name: Cardiac monitoring; Complete Time: 08:30 [facility] 05/03 07:36 Order name: EKG - Nurse/Tech; Complete Time: 08:30 [facility] 05/03 07:36 Order name: IV Saline Lock; Complete Time: 08:30 [facility] 05/03 07:36 Order name: Labs collected and sent; Complete Time: 08:30 [facility] 05/03 07:36 Order name: O2 Per Protocol; Complete Time: 08:30 [facility] 05/03 07:36 Order name: O2 Sat Monitoring; Complete Time: 08:30 [facility] EC:52 Rate is 58 beats/min. Rhythm is regular. RI interval is normal. QRS interval is normal. [facility] QT interval is normal. No Q waves. T waves are Normal. No ST changes noted. Clinical impression: NSR w/ Non-specific ST/T Changes and No evidence of ischemia. Interpreted by me. Reviewed by me. Administered Medications: 08:14 Drug: Aspirin PO Chewable Tablet 324 mg PO once; 81 mg tablets x 4 Route: PO; mb9 08:57 Follow up: Response: No adverse reaction mb9 08:30 Drug: NS 0.9% IV 1000 ml IV at 1 bolus Per protocol; 1000 mL bolus Route: IV; Rate: 1 mb9 bolus; Site: left forearm; 10:19 Follow up: Response: No adverse reaction; IV Status: Completed infusion mb9 08:57 Drug: Pantoprazole IVP 40 mg IVP once Route: IVP; Site: left forearm; mb9 10:19 Follow up: Response: No adverse reaction mb9 Disposition Summary: 05/03/24 10:40 Discharge Ordered Notes: Location: Home christopher Problem: new christopher Symptoms: have improved christopher Condition: Stable christopher Diagnosis - Chest pain, unspecified - chest wall christopher - Anemia, unspecified christopher Followup: christopher - With: Private Physician - When: 1 - 2 days - Reason: Recheck today's complaints, Continuance of care, Re-evaluation by your physician Followup: christopher - With: Leander Veras MD - When: 1 - 2 days - Reason: Recheck today's complaints, Continuance of care, Re-evaluation by your physician Followup: christopher - With: Avelino Acosta MD - When: 2 - 3 days - Reason: Recheck today's complaints, Continuance of care, Re-evaluation by your physician Discharge Instructions: - Discharge Summary Sheet christopher - Anemia christopher - Nonspecific Chest Pain, Adult christopher - Chest Wall Pain christopher - Chest Wall Pain, [id number] christopher - Nonspecific Chest Pain, Adult, [id number] christopher - Aspirin and Your Heart [facility] Forms: - Medication Reconciliation Form christopher - Antibiotic Education christopher - Prescription Opioid Use christopher - Patient Portal Instructions [facility] - Leadership Thank You Letter [facility] Prescriptions: - acetaminophen-codeine 300-30 mg Oral tablet - take 2 tablet ORAL route every 6 hours as needed for pain; 20 tablet; Refills: christopher 0, Product Selection Permitted - Protonix 40 mg Oral Tablet - take 1 tablet ORAL route once daily; 30 tablet; Refills: 0, Product Selection christopher Permitted - Medrol (Grady) 4 mg Oral Tablets, Dose Pack - take 1 tablet ORAL route as directed - follow package instructions; 1 packet; christopher Refills: 0, Product Selection Permitted Signatures: Dispatcher [employer] Merrill Gil MD MD cha Baxter, Heather, RN RN hb Wilkerson, Mary Beth, RN RN mb9 Corrections: (The following items were deleted from the chart) 07:37 07:37 BASIC METABOLIC PANEL+C.LAB.BRZ ordered. EDMS EDMS 07:37 07:37 CBC+H.LAB.BRZ ordered. EDMS EDMS 07:37 07:37 HEPATIC FUNCTION+C.LAB.BRZ ordered. EDMS EDMS 07:37 07:37 MAGNESIUM+C.LAB.BRZ ordered. EDMS EDMS 07:37 07:37 PROBNP+C.LAB.BRZ ordered. EDMS EDMS 07:37 07:37 PROTIME (+INR)+COAG.LAB.BRZ ordered. EDMS EDMS 07:37 07:37 Troponin High Sensitivity+C.LAB.BRZ ordered. EDMS EDMS 07:37 07:37 Chest Single View+RAD.RAD.BRZ ordered. EDMS EDMS
--- NOTE | 2024-05-03 10:40 | ER ---
Nurse's Notes [facility] Name: Michale Grant Age: 78 yrs Sex: Male : 1945 Arrival Date: 05/03/2024 Time: 07:29 Bed 6 Private MD: Diagnosis: Chest pain, unspecified-chest wall;Anemia, unspecified Presentation: 05/03 07:47 Chief complaint: Sharp substernal chest pain that started last night. Hx of OR with hb stent placement 10/09. Coronavirus screen: At this time, the client does not indicate any symptoms associated with coronavirus-19. Ebola Screen: No symptoms or risks identified at this time. Initial Sepsis Screen: Does the patient meet any 2 criteria? No. Patient's initial sepsis screen is negative. Does the patient have a suspected source of infection? No. Patient's initial sepsis screen is negative. Risk Assessment: Do you want to hurt yourself or someone else? Patient reports no desire to harm self or others. Onset of symptoms was May 02, 2024 at 19:00. 07:47 Method Of Arrival: Ambulatory hb 07:47 Acuity: LEIF 2 hb Historical: - Allergies: 07:52 No Known Allergies; hb - PMHx: 07:52 Anemia; Rheumatoid Arthritis; High Cholesterol; GERD; Headaches; Myocardial infarction; hb Thyroid problem; - PSHx: 07:52 cardiac stents X 5; kyphoplasty; hb - Immunization history:: Adult Immunizations up to date. - Infectious Disease History:: Denies. - Family history:: not pertinent. - Social history:: Smoking status: Patient denies any tobacco usage or history of. Screenin:32 [facility] ED Fall Risk Assessment (Adult) History of falling in the last 3 months, mb9 including since admission No falls in past 3 months (0 pts) Confusion or Disorientation No (0 pts) Intoxicated or Sedated No (0 pts) Impaired Gait No (0 pts) Mobility Assist Device Used No (0 pt) Altered Elimination No (0 pt) Score/Fall Risk Level 0 - 2 = Low Risk Oriented to surroundings, Maintained a safe environment, Educated pt \T\ family on fall prevention, incl call for assistance when getting out of bed. Abuse screen: Denies threats or abuse. Nutritional screening: No deficits noted. Tuberculosis screening: No symptoms or risk factors identified. Assessment: 08:31 General: Appears in no apparent distress. Behavior is calm, cooperative. Pain: mb9 Complains of pain in chest Pain does not radiate. Pain currently is 4 out of 10 on a pain scale. Quality of pain is described as throbbing, Pain began suddenly. Neuro: Doe Agitation-Sedation Scale (RASS): 0 - Alert and Calm Level of Consciousness is awake, alert, obeys commands, Oriented to person, place, time, situation, Appropriate for age. Cardiovascular: Reports chest pain, Heart tones S1 S2 present Patient's skin is warm and dry. Respiratory: Airway is patent Respiratory effort is even, unlabored, Respiratory pattern is regular, symmetrical, Breath sounds are clear bilaterally. GI: No signs and/or symptoms were reported involving the gastrointestinal system. : No signs and/or symptoms were reported regarding the genitourinary system. EENT: No signs and/or symptoms were reported regarding the EENT system. Derm: Skin is fragile, is thin, Skin is pink, warm \T\ dry. Musculoskeletal: Range of motion: intact in all extremities. 10:19 Reassessment: No changes from previously documented assessment. Patient and/or family mb9 updated on plan of care and expected duration. Pain level reassessed. Patient is alert, oriented x 3, equal unlabored respirations, skin warm/dry/pink. Vital Signs: 07:47 BP 111 / 57; Pulse 57; Resp 17; Temp 98.1; Pulse Ox 100% on R/A; Pain 7/10; hb 09:18 BP 96 / 55; Pulse 51; Resp 16; Pulse Ox 100% on R/A; mb9 10:19 BP 104 / 59; Pulse 51; Resp 18; Pulse Ox 100% on R/A; mb9 11:02 BP 108 / 62; Pulse 52; Resp 16; Pulse Ox 100% on R/A; mb9 07:47 Pain Scale: Adult hb ED Course: 07:30 Patient arrived in ED. mg5 07:30 Merrill Fine MD is Attending Physician. christopher 07:35 EKG done, by ED staff, reviewed by Merrill Fine MD. hb 07:51 Araseli Nunez, MIKE is Primary Nurse. mb9 07:52 Triage completed. hb 07:53 Arm band placed on. hb 07:53 Client placed on continuous cardiac and pulse oximetry monitoring. NIBP monitoring hb applied. surveillance monitor on. Pulse ox on. NIBP on. 08:30 Initial lab(s) drawn, by me, sent to lab. Inserted saline lock: 22 gauge in left mb9 forearm, using aseptic technique. Blood collected. Flushed with 10 mL NS. 08:31 XRAY Chest (1 view) In Process Unspecified. EDMS 08:32 No provider procedures requiring assistance completed. mb9 08:32 Placed in gown. Bed in low position. Call light in reach. Side rails up X 1. mb9 10:19 Troponin HS: 10 am Sent. mb9 10:40 Leander Veras MD is Referral Physician. christopher 10:40 Avelino Acosta MD is Referral Physician. [facility] 11:02 IV discontinued, intact, bleeding controlled, No redness/swelling at site. Pressure mb9 dressing applied. Administered Medications: 08:14 Drug: Aspirin PO Chewable Tablet 324 mg PO once; 81 mg tablets x 4 Route: PO; mb9 08:57 Follow up: Response: No adverse reaction mb9 08:30 Drug: NS 0.9% IV 1000 ml IV at 1 bolus Per protocol; 1000 mL bolus Route: IV; Rate: 1 mb9 bolus; Site: left forearm; 10:19 Follow up: Response: No adverse reaction; IV Status: Completed infusion mb9 08:57 Drug: Pantoprazole IVP 40 mg IVP once Route: IVP; Site: left forearm; mb9 10:19 Follow up: Response: No adverse reaction mb9 Medication: 08:32 VIS not applicable for this client. mb9 Outcome: 10:[address] . [facility] 11:02 Discharged to home via wheelchair, with family, mb9 11:02 Condition: stable 11:02 Discharge instructions given to patient, Instructed on discharge instructions, follow up and referral plans. Demonstrated understanding of instructions, follow-up care, medications, Prescriptions given X 3, 11:02 Patient left the ED. mb9 Signatures: Dispatcher [employer] Merrill Gil MD MD cha Baxter, Heather, RN RN Araseli Mc RN RN mbTeresa Hollis mg5
[2024-05-03 11:33] VITALS: TEMP 98.1; O2SAT 100
[2024-05-03 11:46] VITALS: BP 108/62
--- NOTE | 2024-05-05 17:53 | EKG ---
Test Date: 2024-05-03 Test Time: 07:42:12 Field Mechanic: HB MEASUREMENT RESULTS: Intervals: Rate: 58 NM: 150 QRSD: 120 QT: 448 QTc: 439 [place]: P: 24 NM: 150 QRS: -59 T: 59 INTERPRETIVE STATEMENTS: Sinus bradycardia Left anterior fascicular block Abnormal ECG Compared to ECG 08/12/2023 07:44:54 No significant changes Electronically Signed On 05-05-24 17:47:59 CDT by Tyler Mercado
== END 2024-05-03 11:02 | disposition home or self-care (01) ==
LOC: ER 07:29
DX: R07.89 Other chest pain (principal); D64.9 Anemia, unspecified; Z95.818 Presence of other cardiac implants and grafts
CPT/HCPCS: 96361; 93005; 85025; 80048; 36415; 83735; 85610; 80076; 84484 ×2; 83880; 71045; 96374; 99285; J2470; J7030

== ENCOUNTER 2024-11-22 08:02 | Inpatient (IN) | payer OTHER ==
[2024-11-22] MEDS ORDERED: NA CHLORIDE 0.9% 1,000 ML ONE (08:42)
[2024-11-22 09:09] LABS: Absolute Lymphocytes (CBC) 0.6 K/uL (0.7-4.9); Absolute Neutrophil 5.8 K/uL (1.8-8.0); Basophils % 0.6 % (0-1.3); Eosinophils % 0.1 % (0-4.4); Hematocrit 26.9 % (39.6-49.0); Hemoglobin 9.1 g/dL (13.6-17.9); Lymphocytes % 7.9 % (15.3-44.8); MCH 39.8 pg (27.0-35.0); MCHC 33.6 g/dL (32.0-36.0); MCV 118.3 fL (80-100); MPV 9.4 fL (7.6-11.3); Monocytes % 14.1 % (3.3-12.3); Neutrophils % 77.3 % (41.7-73.7); Platelets 172 thou/uL (152-406); RBC Red Blood Cell Count 2.28 M/uL (4.33-5.43); Red Cell Distribution Width 16.4 % (12.1-15.2)
[2024-11-22 09:17] LABS: Calcium Oxalate Crystals- Ur Few /HPF (None Seen); Specific Gravity > 1.030 (1.005-1.030); Sqamous Epithelial <5 /HPF (None Seen); Urine Bacteria <20 /HPF (<20); Urine Bilirubin NEGATIVE (Negative); Urine Blood Negative (Negative); Urine Clarity Extremely Turbid (Clear); Urine Color Yellow (Yellow); Urine Culture Reflex Order NOT NEEDED; Urine Glucose NEGATIVE (Negative); Urine Ketones NEGATIVE (Negative); Urine Microscopic Reflex YN ORDER UMIC; Urine Mucus 4+ /HPF (None Seen); Urine Nitrite NEGATIVE (Negative); Urine Protein 2+ (Negative); Urine RBC None Seen /HPF (None Seen); Urine Urobilinogen 1+ (Normal); Urine WBC <5 /HPF (<5); Urine pH 5.5 (5.0-7.0)
[2024-11-22 09:24] LABS: PT Prothrombin Time 15.5 SECONDS (10-13.0); Protime INR 1.38
[2024-11-22 09:38] LABS: Influenza A Ag Negative; Influenza B Ag Negative; SARS-CoV-2 Antigen Rapid Res Negative (Negative)
[2024-11-22 09:40] LABS: Albumin 3.3 g/dL (3.4-5.0); Albumin/Globulin Ratio 0.6 (1.1-1.8); Anion Gap 11.6 mEq/L (5.0-15.0); Bilirubin Direct 0.2 mg/dL (0-0.2); Bilirubin Indirect, Calculated 0.4 mg/dL (0.2-0.8); Bilirubin Total 0.6 mg/dL (0.2-1.0); Globulin 5.1 g/dL (2.3-3.5); Magnesium 2.3 mg/dL (1.6-2.4); Potassium 3.6 mEq/L (3.5-5.1); Protein, Total 8.4 g/dL (6.4-8.2); Troponin High Sensitivity 22.8 pg/mL (<58.9)
[2024-11-22 09:50] LABS: Blood Morphology Comment NOTED (NOT SEEN); Macrocytosis 2+; Platelet Estimate ADEQ; White Blood Cell Scan OK (OK)
--- NOTE | 2024-11-22 10:05 | RAD REPORT ---
EXAMINATION: CT HEAD WITHOUT CONTRAST CT CERVICAL SPINE WITHOUT CONTRAST CLINICAL INDICATION: Declining state. Confusion.. Head and neck pain TECHNIQUE: Axial CT images from the skull base to the vertex without intravenous contrast. Axial CT i mages through the cervical spine were obtained without intravenous contrast. Sagittal and coronal reformatted images were created from the data set. Coronal and sagittal reformatted images were creat ed from the data set. One or more of the following dose reduction techniques were used: Automated exposure control, adjustment of the mA and/or kV according to patient size, and/or iterative reconstr uction. Unless otherwise specified, incidental findings do not require dedicated imaging follow-up. [id number]. Comparison: 2022 FINDINGS: An intracranial bleed is not seen. Ventricles are normal in caliber. No significant hypodensity within the brain No extra-axial fluid collection. No fluid within the sinuses/mastoids No fracture or dislocation is seen involving the cervical spine.. 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 IMPRESSION: No acute intracranial abnormality noted A cervical fracture is not seen. If the patient continues to have symptoms to suggest acute WAREHOUSE STOCK CLERK/spinal pathology then MRI would be rec ommended
--- NOTE | 2024-11-22 10:07 | ER ---
Nurse's Notes [facility] Name: Michael Grant Age: 79 yrs Sex: Male : 1945 Arrival Date: 11/22/2024 Time: 08:02 Bed 4 Private MD: Diagnosis: Altered mental status, unspecified;Weakness;Adverse effect of other drugs, medicaments and biological substances-BACLOFEN Presentation: 11/22 08:00 Chief complaint: EMS states: Toned out for AMS by wide, found pt wondering around the [facility] kitchen. reports he took Baclofen yesterday and again in the middle of the night and when he has taken it in the past it has made him altered. PT A\T\OX1, TO SELF ONLY IN ON ARRIVAL TO ED, BASELINE IS A\T\OX4. 08:00 Method Of Arrival: EMS: [facility] 08:00 Coronavirus screen: At this time, the client does not indicate any symptoms associated [facility] with coronavirus-19. Ebola Screen: No symptoms or risks identified at this time. Initial Sepsis Screen: Does the patient meet any 2 criteria? No. Patient's initial sepsis screen is negative. Does the patient have a suspected source of infection? No. Patient's initial sepsis screen is negative. Risk Assessment: Do you want to hurt yourself or someone else? Patient reports no desire to harm self or others. Note He had a MOHLS surgery 2 weeks ago. Went to bed at 1900 last night. Onset of symptoms is unknown. Care prior to arrival: None. 08:00 Acuity: LEIF 3 jl7 Triage Assessment: 08:32 General: Appears in no apparent distress. uncomfortable, Behavior is calm, cooperative, jl7 drowsy. Pain: Denies pain. Neuro: Level of Consciousness is obeys commands, Oriented to person, Hose Seamer are equal bilaterally Moves all extremities. Speech is normal, Facial symmetry appears normal, Pupils are Pupil Size: 2mm. Cardiovascular: Patient's skin is warm and dry. Respiratory: Airway is patent Respiratory effort is even, unlabored, Respiratory pattern is regular, symmetrical. Derm: Skin is pink, warm \T\ dry. Historical: - Allergies: 08:32 PENICILLINS; jl7 - Home Meds: 10:20 atorvastatin 40 mg Oral tablet once [Active]; famotidine 20 mg oral tablet daily jl7 [Active]; hydroxychloroquine 200 mg Oral tablet 2 times per day [Active]; methimazole 5 mg oral tablet daily [Active]; montelukast 10 mg Oral tablet daily [Active]; pantoprazole 40 mg oral tablet, delayed release (enteric coated) daily [Active]; prednisone 5 mg Oral tablet daily [Active]; Aspirin EC Oral [Active]; - PMHx: 08:32 Anemia; GERD; Headaches; High Cholesterol; Myocardial infarction; Rheumatoid Arthritis; jl7 Thyroid problem; - PSHx: 08:32 cardiac stents X 5; kyphoplasty; jl7 - Immunization history:: Adult Immunizations unknown. - Infectious Disease History:: Denies. - Social history:: Smoking status: unknown. Screenin:30 [facility] ED Fall Risk Assessment (Adult) History of falling in the last 3 months, jl7 including since admission Yes- physiologic fall (2 pts) Confusion or Disorientation Yes (5 pts) Intoxicated or Sedated No (0 pts) Impaired Gait No (0 pts) Mobility Assist Device Used No (0 pt) Altered Elimination Yes (1 pt) Score/Fall Risk Level 3 or more points = High Risk Oriented to surroundings, Maintained a safe environment, Hourly rounding (assess needs \T\ fall precautionary measures) done, Utilized family, sitter, or virtual merchandiser retail representative as indicated. 08:30 Abuse screen: Denies threats or abuse. Denies injuries from another. Nutritional jl7 screening: No deficits noted. Tuberculosis screening: No symptoms or risk factors identified. Assessment: 08:30 General: see triage. jl7 09:30 Reassessment: Patient appears in no apparent distress at this time. No changes from jl7 previously documented assessment. Patient and/or family updated on plan of care and expected duration. Pain level reassessed. 12:00 Reassessment: Pt cleaned of incontinence prior to transport upstairs. jl7 Vital Signs: 08:00 BP 132 / 78; Pulse 71; Resp 15; Temp 97.9; Pulse Ox 98% ; Pain 0/10; jl7 10:15 BP 127 / 85; Pulse 73; Resp 15; Pulse Ox 100% ; jl7 08:00 Pain Scale: Adult jl7 ED Course: 08:09 Patient arrived in ED. christopher 08:16 Merrill Fine MD is Attending Physician. christopher 08:23 Santiago Botello, RN is Primary Nurse. jl7 08:30 Patient has correct armband on for positive identification. Placed in gown. Bed in low jl7 position. Call light in reach. Side rails up X2. Adult w/ patient. Provided Education on: use of call malone. Client placed on continuous cardiac and pulse oximetry monitoring. NIBP monitoring applied. artist consultant on. 08:32 Triage completed. jl7 08:32 Arm band placed on right wrist. Patient placed in an exam room, on a stretcher, on jl7 rn cardiac rehab, on pulse oximetry. 08:45 Initial lab(s) drawn, by me, sent to lab. Urine collected: straight cath specimen, jl7 clear, dulce maria colored. Straight cath inserted, using sterile technique, 14 Fr. Specimen obtained. Returned dulce maria urine. Patient tolerated well. Inserted saline lock: 20 gauge in left forearm, using aseptic technique. Blood collected. Flushed with 10 mL NS. 08:56 EKG done, by ED staff, reviewed by Merrill Fine MD. ap3 09:09 XRAY Chest (1 view) In Process Unspecified. EDMS 09:45 Chest Abd Pelvis Wo Con In Process Unspecified. EDMS 09:45 Head C Spine Mpr Wo Con In Process Unspecified. EDMS 10:06 Avelino Acosta MD is Hospitalizing Provider. christopher 12:00 No provider procedures requiring assistance completed. Patient admitted, IV remains in jl7 place. intact, No redness/swelling at site. Administered Medications: 08:59 Drug: NS 0.9% IV 1000 ml IV at 1000 ml once; to be given as a bolus over 60 minutes jl7 Route: IV; Rate: 1000 ml; Site: left forearm; 10:00 Follow up: Response: No adverse reaction; IV Status: Completed infusion; IV Intake: jl7 1000ml Medication: 10:15 VIS not applicable for this client. jl7 Intake: 10:00 IV: 1000ml; Total: 1000ml. jl7 Outcome: 10:07 Decision to Hospitalize by Provider. christopher 12:00 Admitted to Tele accompanied by tech, via stretcher, with chart, jl7 12:00 Condition: stable 12:00 Discharge instructions given to patient, family, Instructed on the need for admit, Demonstrated understanding of instructions, 12:07 Patient left the ED. ty Signatures: Dispatcher [employer] Merrill Gil MD MD cha Leal, Jahala, RN RN jl7 Chloe Heller RN RN ap3 Óscar May
--- NOTE | 2024-11-22 10:07 | EDPHYS ---
[facility] Name: Michael Grant Age: 79 yrs Sex: Male : 1945 Arrival Date: 11/22/2024 Time: 08:02 Bed 4 Private MD: ED Physician Merrill Fine HPI: 11/22 08:46 This 79 yrs old Male presents to ER via EMS with complaints of Altered Mental christopher Status. 08:46 The patient presents with confusion, decreased mental status, trouble concentrating. christopher Onset: The symptoms/episode began/occurred 2 day(s) ago. Possible causes: CVA or TIA, drug use, seizure, sepsis, unknown. Associated signs and symptoms: Pertinent positives: confusion. Current symptoms: In the emergency department the patient's symptoms are unchanged from the initial presentation. Patient's baseline: Neuro:. The patient has not experienced similar symptoms in the past. Historical: - Allergies: 08:32 PENICILLINS; jl7 - Home Meds: 10:20 atorvastatin 40 mg Oral tablet once [Active]; famotidine 20 mg oral tablet daily jl7 [Active]; hydroxychloroquine 200 mg Oral tablet 2 times per day [Active]; methimazole 5 mg oral tablet daily [Active]; montelukast 10 mg Oral tablet daily [Active]; pantoprazole 40 mg oral tablet, delayed release (enteric coated) daily [Active]; prednisone 5 mg Oral tablet daily [Active]; Aspirin EC Oral [Active]; - PMHx: 08:32 Anemia; GERD; Headaches; High Cholesterol; Myocardial infarction; Rheumatoid Arthritis; jl7 Thyroid problem; - PSHx: 08:32 cardiac stents X 5; kyphoplasty; jl7 - Immunization history:: Adult Immunizations unknown. - Infectious Disease History:: Denies. - Social history:: Smoking status: unknown. ROS: 08:48 Constitutional: Negative for fever, chills, and weight loss, Eyes: Negative for injury, christopher pain, redness, and discharge, ENT: Negative for injury, pain, and discharge, Neck: Negative for injury, pain, and swelling, Cardiovascular: Negative for chest pain, palpitations, and edema, Respiratory: Negative for shortness of breath, cough, wheezing, and pleuritic chest pain, Abdomen/GI: Negative for abdominal pain, nausea, vomiting, diarrhea, and constipation, Back: Negative for injury and pain, : Negative for injury, bleeding, discharge, and swelling, Skin: Negative for injury, rash, and discoloration, Psych: Negative for depression, anxiety, suicide ideation, homicidal ideation, and hallucinations, Allergy/Immunology: Negative for hives, rash, and allergies, Endocrine: Negative for neck swelling, polydipsia, polyuria, polyphagia, and marked weight changes, 08:48 MS/extremity: Positive for abrasion, laceration, stiff extremities, small skin tear right upper labs, Exam: 08:52 Constitutional: This is a well developed, well nourished patient who is awake, alert, christopher and in no acute distress. Head/Face: Normocephalic, atraumatic. Eyes: Pupils equal round and reactive to light, extra-ocular motions intact. Lids and lashes normal. Conjunctiva and sclera are non-icteric and not injected. Cornea within normal limits. Periorbital areas with no swelling, redness, or edema. ENT: Nares patent. No nasal discharge, no septal abnormalities noted. Tympanic membranes are normal and external auditory canals are clear. Oropharynx with no redness, swelling, or masses, exudates, or evidence of obstruction, uvula midline. Mucous membranes moist. Neck: Trachea midline, no thyromegaly or masses palpated, and no cervical lymphadenopathy. Supple, full range of motion without nuchal rigidity, or vertebral point tenderness. No Meningismus. Chest/axilla: Normal chest wall appearance and motion. Nontender with no deformity. No lesions are appreciated. Cardiovascular: Regular rate and rhythm with a normal S1 and S2. No gallops, murmurs, or rubs. Normal PMI, no JVD. No pulse deficits. Respiratory: Lungs have equal breath sounds bilaterally, clear to auscultation and percussion. No rales, rhonchi or wheezes noted. No increased work of breathing, no retractions or nasal flaring. Abdomen/GI: Soft, non-tender, with normal bowel sounds. No distension or tympany. No guarding or rebound. No evidence of tenderness throughout. Back: No spinal tenderness. No costovertebral tenderness. Full range of motion. Male : Normal genitalia with no discharge or lesions. Skin: Warm, dry with normal turgor. Normal color with no rashes, no lesions, and no evidence of cellulitis. Psych: Awake, alert, with orientation to person, place and time. Behavior, mood, and affect are within normal limits. 08:52 Musculoskeletal/extremity: ROM: limited active range of motion due to pain, limited passive range of motion due to pain, Circulation is intact in all extremities. Sensation intact. Compartment Syndrome exam of affected extremity: is normal. Weight bearing: can bear weight with assistance only, uses walker, DVT Exam: no pain, no swelling, no tenderness, negative Homans' sign noted on exam, no appreciated bluish discoloration, no erythema, no increased warmth, 09:11 ECG was reviewed by the Attending Physician. [facility] Vital Signs: 08:00 BP 132 / 78; Pulse 71; Resp 15; Temp 97.9; Pulse Ox 98% ; Pain 0/10; jl7 10:15 BP 127 / 85; Pulse 73; Resp 15; Pulse Ox 100% ; jl7 08:00 Pain Scale: Adult jl7 MDM: 08:09 Medical Screening Exam initiated [facility] 08:16 Medical Screening Exam initiated [facility] 08:52 Differential Diagnosis: CVA, electrolyte abnormality, hypoglycemia, intracranial bleed, christopher overdose, pneumonia, TIA, volume depletion. Data reviewed: vital signs, nurses notes, lab test result(s), EKG, radiologic studies, CT scan, plain films. Consideration of Admission/Observation Patient was admitted/placed on observation. Escalation of care including admission/observation considered. I considered the following discharge prescriptions or medication management in the emergency department Medications were administered in the Emergency Department. See MAR. Independent interpretation of the following test(s) in the Emergency Department EKG: See my EKG interpretation above. Test considered but Not performed: MRI: no mri. Historians other than the Patient: EMS: ems well informed , as well. Care significantly affected by the following chronic conditions: Hypertension, parkinson, ra. 11/22 08:40 Order name: Basic Metabolic Panel; Complete Time: 10:05 [facility] 11/22 08:40 Order name: CBC with Diff; Complete Time: 10: [facility] 11/22 08:40 Order name: LFT's; Complete Time: 10:05 christopher 11/22 08:40 Order name: Magnesium; Complete Time: 10: [facility] 11/22 08:40 Order name: NT PRO-BNP; Complete Time: 10:05 [facility] 11/22 08:40 Order name: PT-INR; Complete Time: 10:05 [facility] 11/22 08:40 Order name: Troponin HS; Complete Time: 10:05 [facility] 11/22 08:40 Order name: Lipase; Complete Time: 10:05 [facility] 11/22 08:40 Order name: Urinalysis w/ reflexes; Complete Time: 10:05 [facility] 11/22 08:40 Order name: CPK; Complete Time: 10:05 [facility] 11/22 08:40 Order name: COVID-19 Ag + Flu A+B Ag; Complete Time: 10:05 [facility] 11/22 09:50 Order name: CBC Smear Scan; Complete Time: 10:05 EDNM 11/22 08:40 Order name: XRAY Chest (1 view) [facility] 11/22 08:43 Order name: Chest Abd Pelvis Wo Con EDMS 11/22 08:44 Order name: Head C Spine Mpr Wo Con EDMS 11/22 08:40 Order name: Cardiac monitoring; Complete Time: 09:38 [facility] 11/22 08:40 Order name: EKG - Nurse/Tech; Complete Time: 09:38 [facility] 11/22 08:40 Order name: IV Saline Lock; Complete Time: 09:38 [facility] 11/22 08:40 Order name: Labs collected and sent; Complete Time: 09:38 [facility] 11/22 08:40 Order name: O2 Per Protocol; Complete Time: 09:38 [facility] 11/22 08:40 Order name: O2 Sat Monitoring; Complete Time: 09:38 [facility] EC:11 Rate is 70 beats/min. Rhythm is regular. QRS [place] is Normal. VA interval is normal. QRS christopher interval is normal. QT interval is normal. No Q waves. T waves are Normal. No ST changes noted. Clinical impression: NSR w/ Non-specific ST/T Changes and No evidence of ischemia. Interpreted by me. Reviewed by me. Administered Medications: 08:59 Drug: NS 0.9% IV 1000 ml IV at 1000 ml once; to be given as a bolus over 60 minutes jl7 Route: IV; Rate: 1000 ml; Site: left forearm; 10:00 Follow up: Response: No adverse reaction; IV Status: Completed infusion; IV Intake: jl7 1000ml Disposition Summary: 11/22/24 10:07 Hospitalization Ordered Notes: Hospitalization Status: Inpatient Admission christopher Provider: Avelino Acosta cha Location: Telemetry/MedSurg (Inpatient) christopher Condition: Fair christopher Problem: new christopher Symptoms: have improved christopher Bed/Room Type: Standard [facility] Room Assignment: 415(11/22/24 10:29) bc6 Diagnosis - Altered mental status, unspecified christopher - Weakness christopher - Adverse effect of other drugs, medicaments and biological substances - BACLOFEN christopher Forms: - Medication Reconciliation Form christopher - SBAR form christopher - Leadership Thank You Letter christopher Signatures: Dispatcher [employer] EDMS Merrill Fine MD MD cha Leal, Jahala RN RN jl7 Gill Simon bc6 Corrections: (The following items were deleted from the chart) 08:40 08:40 Chest Single View+RAD.RAD.BRZ ordered. EDMS EDMS 08:40 08:40 Head C Spine Cap Wo Con+CT.RAD.BRZ ordered. EDMS EDMS 10:29 10:07 christopher bc6
--- NOTE | 2024-11-22 10:19 | RAD REPORT ---
EXAM: CT CHEST, ABDOMEN AND PELVIS WITHOUT CONTRAST CLINICAL INDICATION: Chest and abdominal pain TECHNIQUE: CT chest, abdomen and pelvis was performed, without IV contrast, as per department protoco l. Axial, sagittal and coronal reconstructions were obtained. One or more of the following dose reduction techniques were used: Automated exposure control, adjustment of the mA and/or kV according to the patient size, and/or iterative reconstruction. Unless otherwise specified, incidental findings do not require dedicated imaging follow-up. The lack of IV and oral contrast limits evaluation of the mediastinum, donald, vessels, organs and jose luis l. COMPARISON: 2022 FINDINGS: A few areas of subsegmental atelectasis within the lungs. 8 mm right lower lobe nodule unchanged from 2020 9 Coronary arterial calcifications. No mediastinal or hilar lymphadenopathy seen. No pleural effusion. No pericardial effusion. Liver, spleen, pancreas, adrenals kidneys and bladder appear grossly normal There is no evidence of diverticulitis Normal appendix. Small right inguinal hernia Mild compression deformity L3 vertebral body has developed since 2022. This probably is subacute. Shabbir ent has been placed into an L4 vertebral body fracture. Rectum is distended with stool measuring 6 moderate amount of stools present. IMPRESSION: Rectum is distended with stool. Moderate stool colon. This may indicate a fecal impaction. Probable subacute mild compression fracture L3 vertebral body. Further evaluation with MRI could be o btained if clinically indicated
--- NOTE | 2024-11-22 10:20 | RAD REPORT ---
Procedure: Chest Single View HISTORY: Cough COMPARISON: 2023 and 2019 FINDINGS: The lungs appear clear of acute infiltrate. Right lower lobe pulmonary nodule unchanged from 2020 is benign No significant pleural effusion noted. The heart is mildly enlarged. . IMPRESSION: No acute abnormality is displayed.
[2024-11-22] MEDS ORDERED: ONDANSETRON 4 MG/2 ML VIAL IV PRN (12:59)
[2024-11-22] MEDS: NA CHLORIDE 0.9% 1,000 ML IV SCH ×2 (14:34→22:00)
[2024-11-22] MEDS ORDERED: SUCRALFATE 1 GM TABLET PO PRN (18:39)
--- NOTE | 2024-11-22 19:02 | P.HP ---
Patient History Date of Service: 11/22/24 Reason for admission: altered mental status History of Present Illness: Michael has many medical issues includine multivessel coronary stenosis with 5 stents. RA, Relapsing polychondritis, primary hyperthyroidism and possible Parkinson's. He took two baclofen about 2 days ago and has been confused since then. He is not able to verbalize or wake up properly. Allergies No Known Allergies Allergy (Verified 09/28/22 20:43) Home medications list reviewed: Yes Home Medications: Aspirin Chewable [Aspirin Chewable*] 81 mg PO DAILY 09/28/22 Atorvastatin Calcium 40 mg PO DAILY 09/28/22 Docusate [Colace Cap*] 50 mg PO DAILY 09/28/22 Famotidine [Pepcid*] 20 mg PO BEDTIME 09/28/22 Hydroxychloroquine [Plaquenil*] 200 mg PO BID 09/28/22 Montelukast Sodium 10 mg PO BEDTIME 09/28/22 Pantoprazole [Protonix Tab*] 40 mg PO DAILY 09/28/22 Sucralfate [Carafate*] 1 g PO DAILY PRN 09/28/22 predniSONE [Prednisone*] 5 mg PO SEECOM 09/28/22 Lactobacillus Rhamnosus R0011 [Probiotic Digestive Care] 1 each PO DAILY 11/22/24 methIMAzole [Methimazole] 5 gm MC QOD QID 11/22/24 - Past Medical/Surgical History Has patient received pneumonia vaccine in the past: Yes Diabetic: No -: shingles -: heart attack 8 yrs ago -: gerd -: HLD -: Lupus -: RA -: Polychondritis -: Nodule on right lung -: stent placement X2 but has a total of 3 stents -: kypohplasty 2022: w/ spinal fusion - Social History Smoking Status: Former smoker Alcohol use: Yes CD- Drugs: No Caffeine use: Yes Place of Residence: Home Review of Systems 10-point ROS is otherwise unremarkable Physical Examination - Vital Signs Temperature: 97.6 F Blood Pressure: 94/61 Pulse: 83 Respirations: 18 Pulse Ox (%): 92 - Physical Exam General: Cachectic, Mild distress, Confused HEENT: Atraumatic, PERRLA, Mucous membr. moist/pink, EOMI, Sclerae nonicteric Neck: Supple, 2+ carotid pulse no bruit, No LAD, Without JVD or thyroid abnormality Respiratory: Clear to auscultation bilaterally, Normal air movement Cardiovascular: Regular rate/rhythm, Normal S1 S2 Gastrointestinal: Normal bowel sounds, No tenderness Musculoskeletal: No tenderness Integumentary: No rashes Neurological: Abnormal speech (not able to communicate, open eye and talk to any one. Pupils are constricted but may be post surgical. Eyes roll up and down when eyelids opened forcefully. He is not able to follow any commands. 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 Start Keppra IV. Dr. Lawler does not come to hospital. I called him and left msg Consult Dr. Galarza. Encephalopathy of unclear origin. Spinal tap may be considered but he is in poor physical status with severe spine issues. Family refuses. - Advance Directives Does patient have a Living Will: Yes Does patient have a Durable POA for Healthcare: Yes
[2024-11-22] MEDS: NA CHLORIDE 0.9% 500 ML IV ONE (19:55)
[2024-11-22] MEDS: MONTELUKAST 10 MG TAB PO SCH (19:59)
[2024-11-22] MEDS: HYDROXYCHLOROQUINE 200MG TAB PO SCH (19:59)
[2024-11-22] MEDS: FAMOTIDINE 20 MG TAB PO SCH (19:59)
[2024-11-22] MEDS: levETIRAcetam 500 MG in NA CHLORIDE 0.9% 100 ML IV SCH (20:19)
[2024-11-22] MEDS ORDERED: FAMOTIDINE 20 MG/2 ML VIAL IV SCH (21:00)
[2024-11-22] MEDS ORDERED: NOREPINEPHRINE 4 MG in D5W 250 ML IV SCH (21:00)
[2024-11-22] MEDS: Mupirocin NASAL 2 APPL/1 GM TUBE NAS SCH (22:17)
[2024-11-22] MEDS: HYDROCORTISONE SUC 100 MG INJ IV SCH (22:17)
[2024-11-22] MEDS: Meropenem 1,000 MG in NA CHLORIDE 0.9% 100 ML IV SCH (22:17)
[2024-11-23 06:19] LABS: Anion Gap 11.9 mEq/L (5.0-15.0); Potassium 3.9 mEq/L (3.5-5.1)
[2024-11-23 06:43] LABS: Absolute Basophils 0.1 K/uL (0-0.5); Absolute Lymphocytes (CBC) 0.5 K/uL (0.7-4.9); Absolute Monocytes 1.8 K/uL (0.1-1.3); Absolute Neutrophil 14.6 K/uL (1.8-8.0); Basophils % 0.3 % (0-1.3); Hematocrit 25.5 % (39.6-49.0); Hemoglobin 8.5 g/dL (13.6-17.9); Lymphocytes % 3.1 % (15.3-44.8); MCH 38.8 pg (27.0-35.0); MCHC 33.2 g/dL (32.0-36.0); MPV 10.2 fL (7.6-11.3); Monocytes % 10.7 % (3.3-12.3); Neutrophils % 85.9 % (41.7-73.7); Platelets 148 thou/uL (152-406); RBC Red Blood Cell Count 2.18 M/uL (4.33-5.43); Red Cell Distribution Width 16.3 % (12.1-15.2)
[2024-11-23] MEDS: ASPIRIN EC 81 MG TAB PO SCH (08:45)
[2024-11-23] MEDS: ASPIRIN 81 MG CHEWABLE TABLET PO SCH (08:45)
--- NOTE | 2024-11-23 08:46 | P.PN ---
Subjective Date of Service: 11/23/24 Chief Complaint: altered mental status Subjective: Improving HE IS IN ICU TODAY. HE IS BETTER AND MUCH MORE AWAKE. HE RESPONDED TO VERBAL COMMAND AND RECOGNIZED ME. IS AT BEDSIDE AND SON ON THE PHONE WHEN I TALKED TO THEM. Review of Systems is unable to be obtained Physical Examination - Vital Signs Temperature: 98.0 F Blood Pressure: 98/64 Pulse: 80 Respirations: 19 Pulse Ox (%): 98 - Physical Exam General: Oriented x1 (AWAKE AND RECOGNIZES SOME PEOPLE.), Cachectic, Mild distress HEENT: Atraumatic, PERRLA, EOMI Neck: Supple, JVD not distended Respiratory: Clear to auscultation bilaterally, Normal air movement Cardiovascular: Regular rate/rhythm, Normal S1 S2 Gastrointestinal: Normal bowel sounds, No tenderness Musculoskeletal: No tenderness Integumentary: No rashes Neurological: Normal speech, Abnormal strength (GEN WEAK.) Lymphatics: No axilla or inguinal lymphadenopathy - Studies Laboratory Data (last 24 hrs) 11/22/24 11/22/24 11/22/24 08:55 08:55 08:55 WBC 7.40 Hgb 9.1 L Hct 26.9 L Plt Count 172 PT 15.5 H INR 1.38 Sodium 137 Potassium 3.6 BUN 27 H Creatinine 1.11 Glucose 147 H Magnesium 2.3 Total Bilirubin 0.6 AST 12 L ALT 30 Alkaline Phosphatase 81 Lipase 18 Medications List Reviewed: Yes Assessment And Plan - Current Problems (Diagnosis) (1) Altered mental status Current Visit: Yes Status: Acute Plan: 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 Start Keppra IV. Dr. Lawler does not come to hospital. I called him and left msg Consult Dr. Galarza. Encephalopathy of unclear origin. Spinal tap may be considered but he is in poor physical status with severe spine issues. Family refuses. Atypical seizures are still possible. I will order EEG that is not a very specific test. I talked to Dr. Lawler but he is not a provider here any longer. He will stop by anyway. Continue Keppra for now as it may have help him regain wakefulness. (2) Elevated troponin Current Visit: Yes Status: Acute Plan: No clinical symptoms. Echo stat. Consult magnet maker. He is a known cardiac patient. (3) Leukocytosis Current Visit: Yes Status: Acute Plan: This could be an effect of steroids IV given for stress dose for patient who is on steroids orally. To cover for sepsis continue IV Merrem. (4) Relapsing polychondritis Current Visit: Yes Status: Chronic Plan: has been with strategic marketing manager. (5) Septicemia Current Visit: Yes Status: Acute Plan: not clear if he has this. So far CT chest, abdomen, pelvis neg. Procalcitonin neg. BC2 pending. UA neg. Prognosis is poor. Family understands but also very vigilant.
[2024-11-23] MEDS: predniSONE 5 MG TAB PO SCH (09:00)
[2024-11-23] MEDS: LACTOBACILLUS/ACIDOPHILUS TAB PO SCH (09:00)
[2024-11-23] MEDS: DOCUSATE NA 100 MG CAP PO SCH (09:00)
[2024-11-23] MEDS: ATORVASTATIN 40 MG TAB PO SCH (09:00)
[2024-11-23] MEDS: ENOXAPARIN 40 MG/0.4 ML SQ SCH (09:18)
--- NOTE | 2024-11-23 11:35 | P.CNS ---
Date of Consult: 11/23/24 Chief Complaint: altered mental status History of Present Illness: Patient with PMH of CAD presented with AMS, cardiology were consulted for NSTEMI, patient is altered and hard to open eyes and respond to commands, family is at bedside and mention that health condition has been declining. Allergies No Known Allergies Allergy (Verified 09/28/22 20:43) Home medications list reviewed: Yes Home Medications: Aspirin Chewable [Aspirin Chewable*] 81 mg PO DAILY 09/28/22 Atorvastatin Calcium 40 mg PO DAILY 09/28/22 Docusate [Colace Cap*] 50 mg PO DAILY 09/28/22 Famotidine [Pepcid*] 20 mg PO BEDTIME 09/28/22 Hydroxychloroquine [Plaquenil*] 200 mg PO BID 09/28/22 Montelukast Sodium 10 mg PO BEDTIME 09/28/22 Pantoprazole [Protonix Tab*] 40 mg PO DAILY 09/28/22 Sucralfate [Carafate*] 1 g PO DAILY PRN 09/28/22 predniSONE [Prednisone*] 5 mg PO SEECOM 09/28/22 Lactobacillus Rhamnosus R0011 [Probiotic Digestive Care] 1 each PO DAILY 11/22/24 methIMAzole [Methimazole] 5 gm MC QOD QID 11/22/24 - Past Medical/Surgical History Diabetic: No -: shingles -: heart attack 8 yrs ago -: gerd -: HLD -: Lupus -: RA -: Polychondritis -: Nodule on right lung -: stent placement X2 but has a total of 3 stents -: kypohplasty 2022: w/ spinal fusion - Social History Smoking Status: Unknown if ever smoked Alcohol use: Yes CD- Drugs: No Caffeine use: Yes Place of Residence: Home Review of Systems is unable to be obtained (patient is altered, will open eyes to command but will not respond to questions) Physical Examination Temp Pulse Resp BP Pulse Ox 97.5 F 78 20 103/65 97 11/23/24 09:00 11/23/24 10:00 11/23/24 10:00 11/23/24 10:00 11/23/24 10:00 General: Alert, In no apparent distress HEENT: Atraumatic, PERRLA, Mucous membr. moist/pink, EOMI, Sclerae nonicteric Neck: Supple, 2+ carotid pulse no bruit, No LAD, Without JVD or thyroid abnormality Respiratory: Clear to auscultation bilaterally, Normal air movement Cardiovascular: Regular rate/rhythm, Normal S1 S2 Gastrointestinal: Normal bowel sounds, No tenderness Musculoskeletal: No tenderness Integumentary: No rashes Neurological: Normal gait, Normal speech, Normal tone, Normal affect Lymphatics: No axilla or inguinal lymphadenopathy - Problems (1) CAD (coronary artery disease), [place] coronary artery Current Visit: No Status: Acute Plan: Patient troponin are elevated with history of CAD and stents, typically patient will need coronary angiogram to delinate his coronary anatomy but patient is altered and hard to respond to any commands, it will be harmful to take patient to cathode maker at his current condition continue ASA 81 mg daily Lipitor 40 mg daily Heparin ACS protocol. will continue to monitor.
[2024-11-23] MEDS: HEPARIN/D5W 25,000 UNIT/500 ML BAG IV SCH (11:54)
--- NOTE | 2024-11-23 17:25 | RAD REPORT ---
EXAMINATION: MRI BRAIN WITHOUT CONTRAST CLINICAL INDICATION: Confusion/alteration of consciousness TECHNIQUE: Multiplanar multisequence MR images of the brain were obtained without intravenous contras t. Unless otherwise specified, incidental findings do not require dedicated imaging follow-up. COMPARISON: November 22, 2024 FINDINGS: 2 mm area of low signal deep white matter left frontal lobe probably an old microbleed.. Otherwise no significant abnormal signal within the brain noted. Mild cerebral atrophy Diffusion weighted/ADC mapping does not demonstrate evidence of an acute infarction. Ventricles are normal caliber. No extra-axial fluid collection. No fluid within the sinuses/mastoid seen IMPRESSION: No acute intracranial abnormalities displayed
[2024-11-23] MEDS: THIAMINE 200 MG/2 ML INJ IVP ONE (17:53)
[2024-11-23] MEDS: HEPARIN 5000 UNIT/ML 1 ML VIAL IV SCH (17:53)
--- NOTE | 2024-11-23 20:28 | CON ---
Date of Consultation: 11/23/2024 Time: 1600 Reason: Altered mental status. History: This is a 79-year-old gentleman who I had seen just last month. He had bradykinetic rigid syndrome consistent with moderate Parkinson disease on presentation. He was in his usual state of he alth until Saturday when his noticed him kind of frozen in middle of the kitchen/living room after taking some baclofen, perhaps 2 tablets. She states the patient was drowsy and difficult to arouse, so he was brought to the emergency department, where standard labs and CT scan of the brain was unrevealing and was clearly unwise to send him home, so he was admitted to the hospital. He was placed on IV steroids for stress dose. He had normal troponin and CPK in the emergency department, b ut it is up quite a bit now today. Keppra has been added to his regimen. He is a little more alert today than yesterday. Consultation was requested. Procalcitonin is normal. Past Medical History: Polyarthritis for which he takes prednisone and methotrexate, history of coron [place] artery disease, Parkinson's as alluded to, prior kyphoplasty, chronic neck and back pain. Medications: Aspirin, atorvastatin, Pepcid, Colace, Plaquenil, Protonix, prednisone, methimazole. Allergies: NONE. Social History: Lives with his . Normally independent with basic activities of daily living. Family History: Noncontributory. Review of Systems: General: Chronically ill. Eyes: Appear to have eyelid opening apraxia on exam, but does not complain of blurry or double visio n. Ears, nose, throat: Swallowing status is unclear. He has been too drowsy to check that. Cardiovascular: Coronary artery disease and positive troponins. Pulmonary: Pulmonary nodule longstanding. GI: Negative. : Negative. Musculoskeletal: Polyarthralgia. Neurologic: As alluded to. Psychiatric: Negative. Endocrine: Hyperthyroidism. Physical Examination: Vital Signs: He is afebrile. Heart rate 93, respirations 23, 109/64, saturations 96%. Neurologic: The patient is arousable to verbal stimuli, has apraxia of eyelid opening. He has poor left gaze. He has better upgaze and downgaze than lateral gaze. Face is symmetric. Tongue is midli ne. He has generalized rigidity. Examination of his extremities reveals resting tremor on the right , generalized rigidity and bradykinesia. Sensation is decreased distally. He has less volitional mo vement to the right leg and the right arm than the left, although that may be more reflection of his Parkinson's. Reflexes are trace throughout. Toes are neutral to downgoing. Impression: Altered mental status, Parkinson disease, has elevated CPKs and altered mental status ar e slightly reminiscent of dopamine withdrawal symptom, although it is unclear if he has been taking d opaminergic medications or might have got hold of even some antinausea medications that may have gene rated the underlying symptom complex. Plan: I agree with generalized supportive care. Seems to have improved after getting Keppra, so see ms reasonable to continue at least for now. We will check EEG and brain MRI. Administer IV thiamine . Follow Keppra level. Thank you for the consult. We will continue to follow. BRANDYN/IFEOMA Voice ID: [id number] Report ID: [id number]
[2024-11-24 06:00] LABS: Anion Gap 9.4 mEq/L (5.0-15.0); Potassium 3.4 mEq/L (3.5-5.1)
[2024-11-24 08:00] LABS: Absolute Lymphocytes (CBC) 0.7 K/uL (0.7-4.9); Absolute Monocytes 0.9 K/uL (0.1-1.3); Absolute Neutrophil 4.6 K/uL (1.8-8.0); Basophils % 0.2 % (0-1.3); Hematocrit 21.9 % (39.6-49.0); Hemoglobin 7.3 g/dL (13.6-17.9); Lymphocytes % 10.6 % (15.3-44.8); MCH 39.3 pg (27.0-35.0); MCHC 33.2 g/dL (32.0-36.0); MCV 118.2 fL (80-100); MPV 10.1 fL (7.6-11.3); Neutrophils % 74.2 % (41.7-73.7); Platelets 128 thou/uL (152-406); RBC Red Blood Cell Count 1.85 M/uL (4.33-5.43)
[2024-11-24] MEDS: THIAMINE 200 MG/2 ML INJ IVP SCH (08:40)
[2024-11-24] MEDS: NA CHLORIDE 0.9% 100 ML ONE ×2 (10:51→15:56)
--- NOTE | 2024-11-24 11:02 | EKG ---
Test Date: 2024-11-23 Test Time: 05:19:05 House Manager: VASU MEASUREMENT RESULTS: Intervals: Rate: 77 MA: 154 QRSD: 110 QT: 406 QTc: 459 [place]: P: 24 MA: 154 QRS: -66 T: -48 INTERPRETIVE STATEMENTS: Normal sinus rhythm Left axis deviation ST & T wave abnormality, consider anterolateral ischemia Abnormal ECG Compared to ECG 11/22/2024 07:54:21 Left-axis deviation now present Possible ischemia now present Left anterior fascicular block no longer present Prolonged QT interval no longer present ST (T wave) deviation still present Electronically Signed On 11-24-24 10:58:42 CDT by Tyler Mercado
--- NOTE | 2024-11-24 11:06 | EKG ---
Test Date: 2024-11-22 Test Time: 07:54:21 Clerical Transcriber: ALP MEASUREMENT RESULTS: Intervals: Rate: 70 MD: 154 QRSD: 114 QT: 436 QTc: 470 [place]: P: 10 MD: 154 QRS: -57 T: 63 INTERPRETIVE STATEMENTS: Normal sinus rhythm Left anterior fascicular block Nonspecific ST and T wave abnormality Prolonged QT Abnormal ECG Compared to ECG 05/03/2024 07:42:12 ST (T wave) deviation now present Prolonged QT interval now present Sinus bradycardia no longer present Electronically Signed On 11-24-24 10:59:53 CDT by Tyler Mercado
--- NOTE | 2024-11-24 11:07 | ECHO ---
HEIGHT: 5 ft 9 in WEIGHT: 178 lb 4.8 oz DATE OF STUDY: 11/23/[address]: Avelino Acosta MD 2-DIMENSIONAL: YES M.MODE: YES DOPPLER: YES COLOR FLOW: YES TDS: PORTABLE: YES DEFINITY: BUBBLE STUDY: DIAGNOSIS: ELEVATED TROPONIN CARDIAC HISTORY: CATHERIZATION: YES SURGERY: NO PROSTHETIC VALVE: NO PACEMAKER: NO MEASUREMENTS (cm) DIASTOLIC (NORMALS) SYSTOLIC (NORMALS) IVSd 1.1 (0.6-1.2) LA Diam 2.2 (1.9-4.0) LVEF 20-25% LVIDd 5.6 (3.5-5.7) LVIDs 4.1 (2.0-3.5) %FS LVPWd 1.2 (0.6-1.2) Ao Diam 3.3 (2.0-3.7) 2 DIMENSIONAL ASSESSMENT: RIGHT ATRIUM: NORMAL LEFT ATRIUM: NORMAL RIGHT VENTRICLE: NORMAL LEFT VENTRICLE: NORMAL TRICUSPID VALVE: TRACE TRICUSPID REGURGITATION MITRAL VALVE: NORMAL PULMONIC VALVE: NORMAL AORTIC VALVE: NORMAL PERICARDIAL EFFUSION: NONE AORTIC ROOT: NORMAL LEFT VENTRICULAR WALL MOTION: SEVERE GLOBAL HYPOKINESIS DOPPLER/COLOR FLOW: GRADE I DIASTOLIC DYSFUNCTION COMMENTS: 1. SEVERE GLOBAL HYPOKINESIS, EJECTION FRACTION 20-25%, SEVERELY REDUCED LEFT VENTRICULAR SYSTOLIC FUNCTION. 2. GRADE I DIASTOLIC DYSFUNCTION 3. ELEVATED FILLING PRESSURE (RIGHT ATRIAL PRESSURE 15-20 mmHg) TECHNOLOGIST: ANA ISIDRO
--- NOTE | 2024-11-24 13:15 | P.PN ---
Subjective Date of Service: 11/24/24 Chief Complaint: much more awake, able to communicate Subjective: Improving HE IS IN ICU TODAY. HE IS BETTER AND MUCH MORE AWAKE. HE RESPONDED TO VERBAL COMMAND AND RECOGNIZED ME. IS AT BEDSIDE AND SON ON THE PHONE WHEN I TALKED TO THEM. HE IS FEELING BETTER. TALKING TO NURSES WELL NOW. ASKING QUESTIONS ABOUT PARKINSON'S ETC. HE HAS NORMALLY LOW BP PER . Review of Systems 10-point ROS is otherwise unremarkable General: Weakness, Malaise, Other, As per HPI Physical Examination - Vital Signs Temperature: 98 F Blood Pressure: 81/53 Pulse: 65 Respirations: 16 Pulse Ox (%): 100 - Physical Exam General: Oriented x2, Mild distress HEENT: Atraumatic, PERRLA, EOMI Neck: Supple, JVD not distended Respiratory: Clear to auscultation bilaterally, Normal air movement Cardiovascular: Regular rate/rhythm, Normal S1 S2 Gastrointestinal: Normal bowel sounds, No tenderness Musculoskeletal: No tenderness Integumentary: No rashes Neurological: Normal speech, Abnormal strength, Abnormal tone, Dementia Lymphatics: No axilla or inguinal lymphadenopathy - Studies Medications List Reviewed: Yes Assessment And Plan - Current Problems (Diagnosis) (1) Altered mental status Current Visit: Yes Status: Acute Plan: HE MOST LIKELY HAD ATYPICAL SEIZURES AND HAS RESPONDED WELL TO KEPPRA IV BID. SWALLOWING NEEDS TO BE CHECKED. PER HPI. (2) Elevated troponin Current Visit: Yes Status: Acute Plan: No clinical symptoms. Echo stat. Consult genetic counselor. He is a known cardiac patient. CATH IN AM. DR ZARAGOZA STARTED IV HEPARIN. (3) Leukocytosis Current Visit: Yes Status: Acute Plan: This could be an effect of steroids IV given for stress dose for patient who is on steroids orally. To cover for sepsis continue IV Merrem. 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 (5) Septicemia Current Visit: Yes Status: Acute Plan: not clear if he has this. So far CT chest, abdomen, pelvis neg. Procalcitonin neg. BC2 pending. UA neg. BC NEG. WE HAVE NOT FOUND ANY EVIDENCE OF SEPSIS BC 2 NEG. STOP MERREM. (6) Anemia Current Visit: Yes Status: Acute Plan: HIS HG DROPPED TO 7.3 CHECK GUAIAC CHECK FERRITIN HE HAS HAD BASELINE OF 9 GM HG BEFORE. HEPARIN MAY HAVE ADDED TO ANEMIA. TRANSUFSE AND FU FOLLOWING IS HIS HISTORY. 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 miguel Song. macrocytic, per history baseline about 9 with high ferritin level. miguel Song. 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 ADD MIDODRINE. [facility] CALLED. I ASKED THEM TO CALL IF SHE STILL WANTS TO TRANSFER HIM. SHE SAID NO TO ME YESTERDAY.
--- NOTE | 2024-11-24 13:55 | RAD REPORT ---
EXAMINATION: ONE VIEW CHEST XR CLINICAL INDICATION: congestion TECHNIQUE: Frontal chest projection is submitted. Examination is limited by patient positioning and t echnique. COMPARISON: 11/22/2024 FINDINGS: Moderate airspace opacity is present greater in the right lung and significantly progressive since he 11/22/2024 study. The heart is upper limit of normal in size. No displaced fractures identified. IMPRESSION: There has been moderate worsening in lung aeration, particularly in the right lung, since comparative study.
[2024-11-24] MEDS ORDERED: predniSONE 10 MG TAB PO SCH (14:00)
[2024-11-24] MEDS: MIDODRINE HCL 5 MG TABLET PO SCH (14:32)
[2024-11-24] MEDS: CARBIDOPA/LEVODOPA 25/100 TAB PO SCH (20:49)
[2024-11-24] MEDS: predniSONE 10 MG TAB PO SCH (20:49)
--- NOTE | 2024-11-24 21:24 | PN ---
Date of Progress Note: 11/24/2024 Reason: Altered mental status. Interval History: The patient has improved. Additional history from the reveals that she not o nly found him standing in the kitchen confused, but also having been incontinent of urine and feces, highly suggestive of seizure. Brain MRI, prior micro hemorrhage, but no new stroke or evidence of an y type of permanent or irreversible damage. EEG, generalized and excessive slowing consistent with a postictal type EEG. Keppra level pending. He is able to take p.o. now. Also, Sinemet has been res tarted. Hemoglobin is trending down, receiving some blood. White count is better. Physical Examination: Vital Signs: Afebrile; heart rate 74; respirations 21; blood pressure 105/65, has been running somew hat low. I agree with his attending, it is likely that the Parkinson's is contributing to the relati ve orthostasis. Neurologic: He is awake, alert, oriented, conversant. Pupils reactive. Ocular motion full. Visual narvaez full. Extremity strength 4/5 with slight resting tremor and bradykinesia, right greater than left. Reflexes are trace throughout. Pertinent Laboratory Data: Hemoglobin 7.3 before the blood. PTT 51.9. Creatinine 0.76. Keppra lev el is pending. Impression: 1. New-onset seizure. 2. Parkinson's. Plan: 1. Continue the Keppra. 2. Restart the Sinemet at 25/100 b.i.d. for now, titrate up to t.i.d. within the next few days if tung erated. I agree with the midodrine for the relative orthostasis if okay with Cardiology. The patien t should be able to be reasonably safely transferred to the floor tomorrow. We will continue to follow with you. BRANDYN/IFEOMA Voice ID: [id number] Report ID: [id number]
[2024-11-24 22:28] LABS: Hematocrit 28.6 % (39.6-49.0); Hemoglobin 9.8 g/dL (13.6-17.9)
[2024-11-25 03:50] LABS: Absolute Lymphocytes (CBC) 0.7 K/uL (0.7-4.9); Absolute Monocytes 0.6 K/uL (0.1-1.3); Absolute Neutrophil 3.7 K/uL (1.8-8.0); Basophils % 0.2 % (0-1.3); Eosinophils % 0.1 % (0-4.4); Hemoglobin 9.4 g/dL (13.6-17.9); Lymphocytes % 14.4 % (15.3-44.8); MCH 37.3 pg (27.0-35.0); MCHC 34.8 g/dL (32.0-36.0); MPV 10.5 fL (7.6-11.3); Monocytes % 11.7 % (3.3-12.3); Neutrophils % 73.6 % (41.7-73.7); Platelets 104 thou/uL (152-406); RBC Red Blood Cell Count 2.52 M/uL (4.33-5.43); Red Cell Distribution Width 21.6 % (12.1-15.2)
[2024-11-25 03:54] LABS: MCV 107.1 fL (80-100)
[2024-11-25 03:59] LABS: Anion Gap 8.3 mEq/L (5.0-15.0); Potassium 3.3 mEq/L (3.5-5.1)
[2024-11-25] MEDS: Meropenem 1,000 MG in NA CHLORIDE 0.9% 100 ML IV SCH (09:09)
--- NOTE | 2024-11-25 10:23 | EEG ---
CHART: [id number] TEST ID#: [id number] DATE OF STUDY: 11/24/2024 THE EEG WAS RECORDED PORTABLE IN THE ICU ON A 17 CHANNEL MACHINE. ELECTRODES WERE APPLIED IN THE USUAL MANNER USING THE INTERNATIONAL 10-20 SYSTEM. THE WAKING BACKGROUND RHYTHM IN THIS RECORD CONSISTS OF POORLY DEVELOPED AND POORLY ORGANIZED WAVES OF 7-8 HZ., MAXIMAL IN THE POSTERIOR HEAD REGIONS WHICH ATTENUATE NORMALLY WITH EYE OPENING. ADMIXED MODERATE AMPLITUDE SLOW WAVES OF 1.5-3.0 HZ ARE NOTED, MAXIMUM IN THE FRONTAL REGIONS. THERE ARE NO FOCAL OR LATERALIZING FEATURES. NO EPILEPTIFORM ACTIVITY APPEARS. SLEEP OCCURRED NATURALLY. NORMAL SLEEP PATTERNS ARE PRESENT. HYPERVENTILATION WAS NOT PERFORMED. PHOTIC STIMULATION PRODUCED POOR DRIVING BILATERALLY. IMPRESSION: ABNORMAL EEG BECAUSE OF GENERALIZED EXCESSIVE SLOWING OF THE BACKGROUND. THE ABOVE SUGGESTS DIFFUSE CEREBRAL DYSFUNCTION.
--- NOTE | 2024-11-25 10:54 | P.PN ---
Subjective Date of Service: 11/25/24 Chief Complaint: much more awake, able to communicate Subjective: No new changes, No C/O voiced, Tolerating diet, Ambulating, Improving Review of Systems 10-point ROS is otherwise unremarkable Physical Examination - Vital Signs Temperature: 96.7 F Blood Pressure: 87/59 Pulse: 49 Respirations: 16 Pulse Ox (%): 100 - Physical Exam General: Alert, In no apparent distress HEENT: Atraumatic, PERRLA, EOMI Neck: Supple, JVD not distended Respiratory: Clear to auscultation bilaterally, Normal air movement Cardiovascular: Regular rate/rhythm, Normal S1 S2 Gastrointestinal: Normal bowel sounds, No tenderness Musculoskeletal: No tenderness Integumentary: No rashes Neurological: Normal speech, Normal tone, Normal affect Lymphatics: No axilla or inguinal lymphadenopathy - Studies Medications List Reviewed: Yes Assessment And Plan - Current Problems (Diagnosis) (1) CAD (coronary artery disease), [place] coronary artery Current Visit: No Status: Acute Plan: Patient troponin are elevated with history of CAD and stents, Patient repeated echo shows severe LV dysfunction with severe global hypokinesis. patient will benefit from coronary angiogram but patient overall condition is very poor, discussed with in details, she wants to hold on coronary angiogram due to overall condition and possible aspiration PNA, which I agree on for now, will continue to evaluate day by day, medical management might be his best option. continue ASA 81 mg daily add Plavix 75 mg daily Lipitor 40 mg daily stop Heparin will continue to monitor.
--- NOTE | 2024-11-25 10:56 | RAD REPORT ---
EXAMINATION: CTA CHEST CLINICAL INDICATION: pneumonia TECHNIQUE: This examination was performed according to an angiographic protocol with 3D post-processi ng. This involves 3D reconstructions, MIPs, volume rendered images and/or shaded surface rendering. One or more of the following dose reduction techniques were used: Automated exposure control, adjustm ent of the mA and/or kV according to patient size, and/or iterative reconstruction. Unless otherwise specified, incidental findings do not require dedicated imaging follow-up. COMPARISON: No prior exam. FINDINGS: THORACIC AORTA: Normal caliber and configuration. PULMONARY ARTERIES: Normal caliber. No evidence of pulmonary emboli to the subsegmental level. LUNGS: Extensive bilateral groundglass lung consolidation is present. 10 mm indeterminate nodule is p resent in the right lower lobe. PLEURA: Small bilateral pleural effusions appearing partially loculated. Fluid loculated in both romaine r fissures as well. MEDIASTINUM AND LYMPH NODES: No mediastinal mass or fluid collection. Normal size mediastinal, hilar, and axillary lymph nodes. OSSEOUS STRUCTURES AND CHEST WALL: Intact. UPPER ABDOMEN: No significant abnormalities. IMPRESSION: No finding indicative of pulmonary thromboembolism or acute aortic finding. There is moderate bilateral groundglass lung consolidation with small partially loculated pleural flu id bilaterally. Findings may indicate infection or pulmonary edema.
--- NOTE | 2024-11-25 11:26 | RAD REPORT ---
Modified barium swallow exam with speech pathology service HISTORY: aspiration Fluoroscopy Time: 5 minutes and 1 second IMPRESSION: Please see the speech pathology service report for details. Barium contrast of multiple consistencies was provided the patient orally by the speech pathology dep artment. Fluoroscopic observation was performed during swallowing. The radiologist was not present for the examination. Laryngeal penetration not cleared with thin. Aspiration-No cough Pharyngeal residue vallecular & pyriform requiring multiple swallows across all consistencies Pooling of food &liquid in vallecular and pyriforms, posing high risk for silent aspiration. Decrease d tongue base retraction, delayed swallow reflex >5 secs and premature spillage into vallecular. Barium tablet required multiple sips of liquid to clear.
--- NOTE | 2024-11-25 12:55 | P.CNS ---
Date of Consult: 11/25/24 Reason for Consult: Hypotension stable pneumonia Chief Complaint: Altered mental status History of Present Illness: Patient is 79 years of age was doing well until Saturday problems swallowing eating or drinking apparently to his he froze up came incontinent got autoimmune disorder here in the emergency room diminished left ventricular ejection fraction prostatic anemia significantly elevated troponins very alert responsive and has developed a tremor recently also seen by neurologist for Parkinson's disease history of fever or chills Allergies No Known Allergies Allergy (Verified 09/28/22 20:43) Home Medications: Aspirin Chewable [Aspirin Chewable*] 81 mg PO DAILY 09/28/22 Atorvastatin Calcium 40 mg PO DAILY 09/28/22 Docusate [Colace Cap*] 50 mg PO DAILY 09/28/22 Famotidine [Pepcid*] 20 mg PO BEDTIME 09/28/22 Hydroxychloroquine [Plaquenil*] 200 mg PO BID 09/28/22 Montelukast Sodium 10 mg PO BEDTIME 09/28/22 Pantoprazole [Protonix Tab*] 40 mg PO DAILY 09/28/22 Sucralfate [Carafate*] 1 g PO DAILY PRN 09/28/22 predniSONE [Prednisone*] 5 mg PO SEECOM 09/28/22 Lactobacillus Rhamnosus R0011 [Probiotic Digestive Care] 1 each PO DAILY 11/22/24 methIMAzole [Methimazole] 5 gm MC QOD QID 11/22/24 - Past Medical/Surgical History Diabetic: No -: shingles -: heart attack 8 yrs ago -: gerd -: HLD -: Lupus -: RA -: Polychondritis -: Nodule on right lung -: stent placement X2 but has a total of 3 stents -: kypohplasty 2022: w/ spinal fusion - Social History Smoking Status: Unknown if ever smoked Alcohol use: Yes CD- Drugs: No Caffeine use: Yes Place of Residence: Home Review of Systems General: Weakness Respiratory: Shortness of Breath Physical Examination Temp Pulse Resp BP Pulse Ox 97.5 F 47 L 16 95/59 L 100 11/25/24 12:00 11/25/24 12:00 11/25/24 12:00 11/25/24 12:00 11/25/24 12:00 General: Alert, Oriented x3 Neck: Supple Respiratory: Clear to auscultation bilaterally Cardiovascular: No edema, Regular rate/rhythm, Normal S1 S2 Gastrointestinal: Normal bowel sounds, Soft and benign - Problems (1) Hypotension Current Visit: Yes Status: Acute Plan: Patient is 79 years of age. With hypotension possible non-STEMI of autoimmune disorders has very impressive macrocytic anemia history is all reviewed normal liver function test normal prior B12 and thyroid levels chest x-ray CT scan shows diffuse groundglass changes greater than the left echo shows very diminished ejection fraction Be experiencing side effects of hydroxychloroquine/hold that medication for now because of profound myopathy/check B12 thyroid levels add some thiamine but on IV Solu-Medrol out aspiration pneumonia start patient on Levophed trial of diuretics patient's procalcitonin level is also negative patient back on Levophed DC IV fluids trial of low-dose Lasix alert responsive and cooperative Qualifiers: Hypotension type: unspecified hypotension type Qualified Code(s): I95.9 - Hypotension, unspecified
[2024-11-25] MEDS: FUROSEMIDE 20 MG/ 2ML VIAL IV ONE (13:05)
[2024-11-25] MEDS: METHYLPREDNISOLONE 40 MG INJ IV SCH (13:05)
[2024-11-25 13:34] LABS: Thyroid Stimulating Hormone 2.1 uIU/mL (0.358-3.740)
[2024-11-25] MEDS: FUROSEMIDE 100 MG in NA CHLORIDE 0.9% 90 ML IV SCH (15:23)
--- NOTE | 2024-11-25 17:14 | P.PN ---
Subjective Date of Service: 11/25/24 Chief Complaint: WEAK, FATIGUE, COUGH SOME BLOOD. Subjective: No new changes HE IS COUGHING SOME BLOOD. WE DID X RAY YEST AND ORDERED CT CHEST ALSO. AT BEDSIDE. HE IS MUCH MORE AWAKE AFTER KEPPRA BUT OTHER ISSUES HAVE COME UP. HE IS NOT ABLE TO SWALLOW. Review of Systems 10-point ROS is otherwise unremarkable General: Weakness, Malaise Physical Examination - Vital Signs Temperature: 97.6 F Blood Pressure: 95/66 Pulse: 57 Respirations: 17 Pulse Ox (%): 98 - Physical Exam General: Cachectic, Mild distress HEENT: Atraumatic, PERRLA, EOMI Neck: Supple, JVD not distended Respiratory: Diminished Cardiovascular: Regular rate/rhythm, Normal S1 S2 Gastrointestinal: Normal bowel sounds, No tenderness Musculoskeletal: No tenderness Integumentary: No rashes Neurological: Normal speech, Abnormal strength (WEAK, NOT ABLE TO AMBULATE) Lymphatics: No axilla or inguinal lymphadenopathy - Studies Medications List Reviewed: Yes Assessment And Plan - Current Problems (Diagnosis) (1) Altered mental status Current Visit: Yes Status: Acute Plan: HE MOST LIKELY HAD ATYPICAL SEIZURES AND HAS RESPONDED WELL TO KEPPRA IV BID. SWALLOWING NEEDS TO BE CHECKED. PER HPI. MENTATION HAS IMPROVED AFTER KEPPRA. (2) Elevated troponin Current Visit: Yes Status: Acute Plan: SEVERE CONGESTIVE CARDIOMYOPATHY. I ADVISE COMFORT CARE BUT FAMILY SEEMS TO BE IN DENIAL AND WANT AGGRESSIVE CARE. HE HAS HAD 4 STENTS ALREADY AND HE IS IN A VERY POOR PHYSICAL STATUS. I ALSO CALLED DR. ZAMORA TO HELP US SOLIDIFY OUR RECOMMENDATION TO THE FAMILY. (3) Leukocytosis Current Visit: Yes Status: Acute Plan: This could be an effect of steroids IV given for stress dose for patient who is on steroids orally. To cover for sepsis continue IV Merrem. 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 (5) Septicemia Current Visit: Yes Status: Acute Plan: WE HAD TO RESTART MERREM BUT AGAIN DR. KEITA SAYS IT IS MORE OF CHF THEN PNEUMONIA. [facility] HE HAS ASPIRATION SO FAR WE CAN STOP MERREM. (6) Anemia Current Visit: Yes Status: Acute Plan: HIS HG DROPPED TO 7.3 CHECK GUAIAC CHECK FERRITIN HE HAS HAD BASELINE OF 9 GM HG BEFORE. HEPARIN MAY HAVE ADDED TO ANEMIA. TRANSUFSE AND FU FOLLOWING IS HIS HISTORY. 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 miguel Song. macrocytic, per history baseline about 9 with high ferritin level. miguel Song. 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 ADD MIDODRINE. [facility] CALLED. I ASKED THEM TO CALL IF SHE STILL WANTS TO TRANSFER HIM. SHE SAID NO TO ME YESTERDAY. (8) Congestive cardiomyopathy Current Visit: Yes Status: Acute Plan: EF IS LOW. DR ZARAGOZA CALLED. HE ADVISED COMFORT CARE ALSO INVASIVE THERAPY WILL NOT CHANGE HIS POOR OUTCOME. FOR LAST FOUR DAYS I AM TRYING TO EXPLAIN THE SAME TO . THE SON AND NURSE IN FAMILY ARE AGGRESSIVE ABOUT THE CARE. THEY INITIALLY WANTED A TRANSFER BUT NOT NOW AND THIS MAY CHANGE. DR. ZARAGOZA MAY DO CATH IF FAMILY WANTS. (9) Pulmonary edema Current Visit: Yes Status: Acute (10) Dysphagia Current Visit: Yes Status: Acute Plan: HE FAILED MBS. HE WILL NEED G TUBE IF FAMILY WANTS. ONCE AGAIN WE WILL AVOID IT AND DO HOSPICE IF THEY LET US TO KEEP HIM COMFO RTABLE. (11) Parkinson disease Current Visit: Yes Status: Chronic Plan: NEW DIAGNOSIS BY DR. CONKLIN. HE WILL NEED THERAPY WHEN DR. CONKLIN CAN FU WITH HIM, IF HE EVER GETS OUT OF HOSPITAL.
--- NOTE | 2024-11-25 19:25 | PN ---
Date of Progress Note: 11/25/2024 Time: 1900. Reason: New onset seizure, Parkinson. Interval History: Complications are ensuing over the last 24 hours, relative hypotension. An echocardiogram demonstrates the EF of 20% to 25% and then coughing yesterday and CT scan of the chest demonstrates findings suggestive of pneumonia. He had a modified barium swallow that demonstrated silent aspiration, n.p.o. recommended. A repeat modified barium swallow was recommended after improvement in aspiration pneumonia and there is a question if he may actually need a G tube, so he seemed to be having problems on this problem list instead of taking them off his problem list. Physical Examination: Vital Signs: Afebrile. Heart rate 52, respirations 16, 100/59. General: He is awake, alert, hypophonic, masking of facial expression, decreased blink rate, cogwheeling, and mild resting tremor, right greater than left. Strength 4/5 diffusely. Toes are downgoing. Impression: New onset seizure. Continue IV Keppra. Parkinson. He is n.p.o. now, has a lot of ongoing issues. Heart catheterization seems to be the more pressing study over a permanent feeding tube placement and so heart catheterization goes reasonably well. He may need to be just maintained on Dobbhoff tube feeds over the weekend and ideally swallowing would improve enough that he would not need gastric feeding tube placed, but best to have to see if that improves once we can get better antiparkinsonian medication on ordered. We will continue to follow with you. MARILYN Voice ID: [id number] Report ID: [id number] NICOLETTE
[2024-11-25] MEDS: THIAMINE 200 MG/2 ML INJ IVP SCH (21:50)
[2024-11-26 06:01] LABS: Absolute Lymphocytes (CBC) 0.6 K/uL (0.7-4.9); Absolute Monocytes 0.4 K/uL (0.1-1.3); Absolute Neutrophil 1.9 K/uL (1.8-8.0); Basophils % 0.4 % (0-1.3); Hematocrit 32.3 % (39.6-49.0); Hemoglobin 11.2 g/dL (13.6-17.9); Lymphocytes % 19.3 % (15.3-44.8); MCH 37.4 pg (27.0-35.0); MCHC 34.9 g/dL (32.0-36.0); MCV 107.4 fL (80-100); MPV 10.4 fL (7.6-11.3); Monocytes % 13.3 % (3.3-12.3); Nucleated Red Blood Cells % 0.3 % (0-0); Platelets 103 thou/uL (152-406); Red Cell Distribution Width 20.7 % (12.1-15.2)
[2024-11-26 07:41] LABS: Anion Gap 11.4 mEq/L (5.0-15.0); Potassium 3.4 mEq/L (3.5-5.1)
[2024-11-26 07:59] LABS: Anisocytosis 1+; Blood Morphology Comment NOTED (NOT SEEN); Macrocytosis 1+; Platelet Estimate DECR; Platelets, Giant FEW; White Blood Cell Scan OK (OK)
--- NOTE | 2024-11-26 10:43 | P.PN ---
Subjective Date of Service: 11/26/24 Chief Complaint: WEAK, FATIGUE, COUGH SOME BLOOD. Subjective: No new changes Review of Systems 10-point ROS is otherwise unremarkable Physical Examination - Vital Signs Temperature: 97.8 F Blood Pressure: 92/51 Pulse: 45 Respirations: 12 Pulse Ox (%): 95 - Physical Exam General: Alert, In no apparent distress HEENT: Atraumatic, PERRLA, EOMI Neck: Supple, JVD not distended Respiratory: Clear to auscultation bilaterally, Normal air movement Cardiovascular: Regular rate/rhythm, Normal S1 S2 Gastrointestinal: Normal bowel sounds, No tenderness Musculoskeletal: No tenderness Integumentary: No rashes Neurological: Normal speech, Normal tone, Normal affect Lymphatics: No axilla or inguinal lymphadenopathy - Studies Medications List Reviewed: Yes Assessment And Plan - Current Problems (Diagnosis) (1) CAD (coronary artery disease), [place] coronary artery Current Visit: No Status: Acute Plan: Patient troponin are elevated with history of CAD and stents, Patient repeated echo shows severe LV dysfunction with severe global hypokinesis. 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 Mendoza is there. continue ASA 81 mg daily add Plavix 75 mg daily Lipitor 40 mg daily stop Heparin will continue to monitor. (2) Acute combined systolic and diastolic heart failure Current Visit: Yes Status: Acute Plan: continue lasix drip, continue to monitor input and output and electrolytes.
--- NOTE | 2024-11-26 12:16 | P.PN ---
Subjective Date of Service: 11/26/24 Chief Complaint: History of heart failure Subjective: Improving (Is improving doing well denies any dyspnea Lasix drip) Review of Systems General: Weakness Respiratory: Shortness of Breath Physical Examination - Vital Signs Temperature: 97.8 F Blood Pressure: 89/53 Pulse: 48 Respirations: 13 Pulse Ox (%): 94 - Physical Exam General: Alert, In no apparent distress, Oriented x3 Respiratory: Clear to auscultation bilaterally Cardiovascular: Regular rate/rhythm, Normal S1 S2, Edema - Studies Medications List Reviewed: Yes Assessment And Plan - Current Problems (Diagnosis) (1) Congestive cardiomyopathy Current Visit: Yes Status: Acute Plan: Patient admitted with congestive heart failure non-STEMI is on heparin drip in addition to Lasix he is doing better oxygenation satisfactory funguses has not required any vasopressors tube feeding has been started today patient has chronic macrocytosis we will TSH and B12 levels continue with steroids for now signs oxygenation satisfactory scheduled for a cardiac cath on Saturday daily chest x-ray
--- NOTE | 2024-11-26 12:18 | RAD REPORT ---
EXAM: XR Abdomen 1 View (KUB) HISTORY: [facility] MAIN Dobhoff placement COMPARISON: None FINDINGS: Weighted enteric tube tip projects at the pylorus. Single view of the abdomen shows a nonsp ecific, nonobstructive bowel gas pattern. No suspicious calcifications are seen. The bones are unremarkable. IMPRESSION: Weighted enteric tube tip projects at the pylorus.
--- NOTE | 2024-11-26 13:06 | P.PN ---
Subjective Date of Service: 11/26/24 Chief Complaint: History of heart failure Subjective: No new changes HE IS COUGHING SOME BLOOD. WE DID X RAY YEST AND ORDERED CT CHEST ALSO. AT BEDSIDE. HE IS MUCH MORE AWAKE AFTER KEPPRA BUT OTHER ISSUES HAVE COME UP. HE IS NOT ABLE TO SWALLOW. WEAK,BED BOUND, NOT ABLE TO SWALLOW. NO CHEST PAIN. Review of Systems 10-point ROS is otherwise unremarkable General: Weakness Physical Examination - Vital Signs Temperature: 97.8 F Blood Pressure: 89/53 Pulse: 48 Respirations: 13 Pulse Ox (%): 94 - Physical Exam General: Cachectic, Mild distress HEENT: Atraumatic, PERRLA, EOMI Neck: Supple, JVD not distended Respiratory: Clear to auscultation bilaterally, Normal air movement Cardiovascular: Regular rate/rhythm, Normal S1 S2 Gastrointestinal: Normal bowel sounds, No tenderness Musculoskeletal: No tenderness Integumentary: No rashes Neurological: Normal speech, Abnormal strength Lymphatics: No axilla or inguinal lymphadenopathy - Studies Medications List Reviewed: Yes Assessment And Plan - Current Problems (Diagnosis) (1) Altered mental status Current Visit: Yes Status: Resolved Plan: HE MOST LIKELY HAD ATYPICAL SEIZURES AND HAS RESPONDED WELL TO KEPPRA IV BID. SWALLOWING NEEDS TO BE CHECKED. PER HPI. MENTATION HAS IMPROVED AFTER KEPPRA. (2) Elevated troponin Current Visit: Yes Status: Acute Plan: SEVERE CONGESTIVE CARDIOMYOPATHY. I ADVISE COMFORT CARE BUT FAMILY SEEMS TO BE IN DENIAL AND WANT AGGRESSIVE CARE. HE HAS HAD 4 STENTS ALREADY AND HE IS IN A VERY POOR PHYSICAL STATUS. I ALSO CALLED DR. ZAMORA TO HELP US SOLIDIFY OUR RECOMMENDATION TO THE FAMILY. CATH TO BE DONE ON SATURDAY. SIGNAL MANAGER IS NOT AVAILABLE. FAMILY OKAY WITH IT. (3) Leukocytosis Current Visit: Yes Status: Acute Plan: This could be an effect of steroids IV given for stress dose for patient who is on steroids orally. To cover for sepsis continue IV Merrem. 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 (5) Septicemia Current Visit: Yes Status: Acute Plan: WE HAD TO RESTART MERREM BUT AGAIN DR. KEITA SAYS IT IS MORE OF CHF THEN PNEUMONIA. [facility] HE HAS ASPIRATION SO FAR WE CAN STOP MERREM. (6) Anemia Current Visit: Yes Status: Acute Plan: HIS HG DROPPED TO 7.3 CHECK GUAIAC CHECK FERRITIN HE HAS HAD BASELINE OF 9 GM HG BEFORE. HEPARIN MAY HAVE ADDED TO ANEMIA. TRANSUFSE AND FU FOLLOWING IS HIS HISTORY. 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 miguel Song. macrocytic, per history baseline about 9 with high ferritin level. miguel Song. 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 ADD MIDODRINE. [facility] CALLED. I ASKED THEM TO CALL IF SHE STILL WANTS TO TRANSFER HIM. SHE SAID NO TO ME YESTERDAY. (8) Congestive cardiomyopathy Current Visit: Yes Status: Acute Plan: EF IS LOW. DR ZARAGOZA CALLED. HE ADVISED COMFORT CARE ALSO INVASIVE THERAPY WILL NOT CHANGE HIS POOR OUTCOME. FOR LAST FOUR DAYS I AM TRYING TO EXPLAIN THE SAME TO . THE SON AND NURSE IN FAMILY ARE AGGRESSIVE ABOUT THE CARE. THEY INITIALLY WANTED A TRANSFER BUT NOT NOW AND THIS MAY CHANGE. DR. ZARAGOZA MAY DO CATH IF FAMILY WANTS. CATH ON SATURDAY PROGNOSIS OVERALL POOR. FAMILY IS AWARE. (9) Pulmonary edema Current Visit: Yes Status: Acute Plan: BP IS TOO LOW FOR DIURETICS. DR. ZARAGOZA AND DR. KEITA WORKING ON THIS. (10) Dysphagia Current Visit: Yes Status: Acute Plan: HE FAILED MBS. HE WILL NEED G TUBE IF FAMILY WANTS. ONCE AGAIN WE WILL AVOID IT AND DO HOSPICE IF THEY LET US TO KEEP HIM COMFORTABLE. (11) Parkinson disease Current Visit: Yes Status: Chronic Plan: NEW DIAGNOSIS BY DR. CONKLIN. HE WILL NEED THERAPY WHEN DR. CONKLIN CAN FU WITH HIM, IF HE EVER GETS OUT OF HOSPITAL.
--- NOTE | 2024-11-26 14:49 | RAD REPORT ---
EXAMINATION: ONE VIEW CHEST XR CLINICAL INDICATION: CHF TECHNIQUE: Frontal chest projection is submitted. Examination is limited by patient positioning and t echnique. COMPARISON: No prior exam. FINDINGS: Enteric tube tip descends into the upper abdomen likely in the stomach. Bilateral airspace opacity moore s improved moderately since prior study. Small bilateral pleural effusions with loculated fluid bilaterally. The heart is moderately enlarged. IMPRESSION: Moderate improvement lung aeration seen since comparison study.
--- NOTE | 2024-11-26 22:47 | PN ---
Date of Progress Note: 11/26/2024 Time: 1830 Reason: New-onset seizure, Parkinson's. Interval History: Patient looks better today and had a Dobhoff tube placed. pathology laboratory director is down until Saturday. He still on a heparin drip. Restart the Sinemet through the Dobhoff tube. Getting PT here in ICU. Physical Examination: Vital Signs: He is afebrile. Vitals are stable. General: He is awake, alert, oriented. Not dysarthric. HEENT: Pupils reactive. Ocular motion full. Pimentel full. Tongue is midline. Soft palate elevates bilaterally. Extremities: Strength 4+. Rigidity and cogwheeling worse on the right, unchanged. Impression: 1. New-onset seizure. Continue the IV Keppra. 2. Parkinson's. Restart the Sinemet through the Dobhoff tube. 3. Dysphagia. There is no evidence on brain MRI of a new stroke or a lesion to generate abrupt worse enrike of his swallowing. It is likely a complication of Parkinson's, but hopefully, he just need to b e a little more alert and a little more time and he will need a permanent gastric tube. Repeat modif ied barium swallow is pending. We will continue to follow. BRANDYN/IFEOMA Voice ID: [id number] Report ID: [id number]
[2024-11-27 06:08] LABS: Absolute Lymphocytes (CBC) 0.5 K/uL (0.7-4.9); Absolute Monocytes 0.5 K/uL (0.1-1.3); Absolute Neutrophil 2.5 K/uL (1.8-8.0); Basophils % 0.2 % (0-1.3); Hematocrit 30.2 % (39.6-49.0); Hemoglobin 10.7 g/dL (13.6-17.9); Lymphocytes % 13.2 % (15.3-44.8); MCH 37.8 pg (27.0-35.0); MCHC 35.3 g/dL (32.0-36.0); MPV 10.9 fL (7.6-11.3); Monocytes % 15.3 % (3.3-12.3); Neutrophils % 71.3 % (41.7-73.7); Nucleated Red Blood Cells % 0.2 % (0-0); Platelets 112 thou/uL (152-406); RBC Red Blood Cell Count 2.82 M/uL (4.33-5.43); Red Cell Distribution Width 19.6 % (12.1-15.2)
[2024-11-27 06:11] LABS: Anion Gap 8.1 mEq/L (5.0-15.0); Potassium 3.1 mEq/L (3.5-5.1)
--- NOTE | 2024-11-27 07:43 | RAD REPORT ---
EXAMINATION: ONE VIEW CHEST XR CLINICAL INDICATION: CHF TECHNIQUE: Frontal chest projection is submitted. Examination is limited by patient positioning and t echnique. COMPARISON: 11/26/2024 FINDINGS: Mild interstitial prominence bilaterally is present suggesting mild interstitial pulmonary edema. Tra ce bilateral pleural effusions. The heart is upper limit of normal in size. Enteric tube descends into the upper abdomen. IMPRESSION: Mild CHF, unchanged since comparison study.
[2024-11-27] MEDS: levETIRAcetam 500 MG/5 ML OSYR FT SCH (08:30)
[2024-11-27] MEDS: predniSONE 20 MG TAB PO SCH (08:31)
[2024-11-27] MEDS: KCL 20 MEQ/100 mL IVPB 20 MEQ/100 ML BAG IV SCH (08:31)
--- NOTE | 2024-11-27 13:18 | P.PN ---
Subjective Date of Service: 11/27/24 Chief Complaint: History of heart failure Subjective: No new changes, No C/O voiced, Tolerating diet, Ambulating, Improving Review of Systems 10-point ROS is otherwise unremarkable Physical Examination - Vital Signs Temperature: 97.4 F Blood Pressure: 99/61 Pulse: 47 Respirations: 12 Pulse Ox (%): 95 - Physical Exam General: Alert, In no apparent distress HEENT: Atraumatic, PERRLA, EOMI Neck: Supple, JVD not distended Respiratory: Clear to auscultation bilaterally, Normal air movement Cardiovascular: Regular rate/rhythm, Normal S1 S2 Gastrointestinal: Normal bowel sounds, No tenderness Musculoskeletal: No tenderness Integumentary: No rashes Neurological: Normal speech, Normal tone, Normal affect Lymphatics: No axilla or inguinal lymphadenopathy - Studies Medications List Reviewed: Yes Assessment And Plan - Current Problems (Diagnosis) (1) CAD (coronary artery disease), [place] coronary artery Current Visit: No Status: Acute Plan: Patient troponin are elevated with history of CAD and stents, Patient repeated echo shows severe LV dysfunction with severe global hypokinesis. 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 Mendoza is there. continue ASA 81 mg daily add Plavix 75 mg daily Lipitor 40 mg daily stop Heparin will continue to monitor. (2) Acute combined systolic and diastolic heart failure Current Visit: Yes Status: Acute Plan: continue lasix drip, continue to monitor input and output and electrolytes.
[2024-11-27] MEDS: CARBIDOPA/LEVODOPA 25/100 TAB PO SCH (19:56)
--- NOTE | 2024-11-27 21:52 | PN ---
Date of Progress Note: 11/27/2024 Time: 1800 Reason: Parkinson's, dysphagia, seizures. Interval History: The patient is stable. No seizures. He is on Dobbhoff tube feeds, tolerating nena t well. Modified barium swallow planned to get re-done next week after his heart cath. He was able to stand and walk a few steps with Therapy. Looks better with some Sinemet on board. We will increa se the Sinemet to t.i.d., continue the Keppra. Physical Examination: General: He is awake, alert, was masking with hypophonia. Neuromuscular: Ocular motion full. Pimentel full. Face symmetric. Tongue midline. Soft palate elev ates bilaterally. Extremity strength full. Still has moderate rigidity and cogwheeling, right great er than left. Reflexes globally suppressed. Impression: 1. New-onset seizures. 2. Parkinson's. Plan: Continue the IV Keppra. Increase the Sinemet to t.i.d. Swallowing study next week. We will follow up next week. BRANDYN/IFEOMA Voice ID: [id number] Report ID: [id number]
[2024-11-28 06:06] LABS: Absolute Lymphocytes (CBC) 1.6 K/uL (0.7-4.9); Absolute Neutrophil 2.8 K/uL (1.8-8.0); Basophils % 0.1 % (0-1.3); Eosinophils % 0.5 % (0-4.4); Hematocrit 30.2 % (39.6-49.0); Hemoglobin 10.6 g/dL (13.6-17.9); Lymphocytes % 28.8 % (15.3-44.8); MCH 37.7 pg (27.0-35.0); MCV 107.9 fL (80-100); MPV 10.9 fL (7.6-11.3); Monocytes % 18.9 % (3.3-12.3); Neutrophils % 51.7 % (41.7-73.7); Nucleated Red Blood Cells % 0.1 % (0-0); Platelets 110 thou/uL (152-406); Red Cell Distribution Width 19.3 % (12.1-15.2)
[2024-11-28 06:15] LABS: Anion Gap 7.9 mEq/L (5.0-15.0); Potassium 2.9 mEq/L (3.5-5.1)
[2024-11-28] MEDS: POTASSIUM 25 MEQ EFFERV TAB PO ONE ×2 (06:36→12:13)
--- NOTE | 2024-11-28 07:19 | RAD REPORT ---
EXAMINATION: ONE VIEW CHEST XR CLINICAL INDICATION: CHF TECHNIQUE: Frontal chest projection is submitted. Examination is limited by patient positioning and t echnique. COMPARISON: 11/27/2024 FINDINGS: Mild interstitial pulmonary edema, unchanged. The heart is mildly enlarged in size. No displaced frac tures identified. Enteric tube descends into the upper abdomen. IMPRESSION: Stable chest since 11/27/2024 study.
[2024-11-28] MEDS: KCL 20 MEQ/100 mL IVPB 20 MEQ/100 ML BAG IV SCH (07:30)
[2024-11-28] MEDS ORDERED: DOCUSATE NA 100 MG CAP PO SCH (09:00)
[2024-11-28] MEDS: MIDODRINE HCL 5 MG TABLET PO SCH (09:12)
[2024-11-28] MEDS: CLOPIDOGREL 75 MG TABLET PO SCH (09:12)
[2024-11-28] MEDS: DOCUSATE NA 50 MG/5 ML UCUP FT SCH (09:13)
[2024-11-28] MEDS ORDERED: SODIUM CHLORIDE 0.9% 10ML INJ IV PRN (21:21)
--- NOTE | 2024-11-28 21:23 | P.PN ---
Subjective Date of Service: 11/28/24 Chief Complaint: weak, fatigue. Subjective: Improving HE IS COUGHING SOME BLOOD. WE DID X RAY YEST AND ORDERED CT CHEST ALSO. AT BEDSIDE. HE IS MUCH MORE AWAKE AFTER KEPPRA BUT OTHER ISSUES HAVE COME UP. HE IS NOT ABLE TO SWALLOW. WEAK,BED BOUND, NOT ABLE TO SWALLOW. NO CHEST PAIN. ABLE TO COMMUNICATE AND LOOKS STRONGER FROM FEEDING. Review of Systems 10-point ROS is otherwise unremarkable General: Weakness Physical Examination - Vital Signs Temperature: 97.6 F Blood Pressure: 90/67 Pulse: 49 Respirations: 16 Pulse Ox (%): 100 - Physical Exam General: Oriented x3, Cachectic, Mild distress HEENT: Atraumatic, PERRLA, EOMI Neck: Supple, JVD not distended Respiratory: Clear to auscultation bilaterally, Normal air movement Cardiovascular: Regular rate/rhythm, Normal S1 S2 Gastrointestinal: Normal bowel sounds, No tenderness Musculoskeletal: No tenderness Integumentary: No rashes Neurological: Normal speech, Normal tone, Normal affect Lymphatics: No axilla or inguinal lymphadenopathy - Studies Medications List Reviewed: Yes Assessment And Plan - Current Problems (Diagnosis) (1) Altered mental status Current Visit: Yes Status: Resolved Plan: HE MOST LIKELY HAD ATYPICAL SEIZURES AND HAS RESPONDED WELL TO KEPPRA IV BID. SWALLOWING NEEDS TO BE CHECKED. PER HPI. MENTATION HAS IMPROVED AFTER KEPPRA. (2) Elevated troponin Current Visit: Yes Status: Acute Plan: SEVERE CONGESTIVE CARDIOMYOPATHY. I ADVISE COMFORT CARE BUT FAMILY SEEMS TO BE IN DENIAL AND WANT AGGRESSIVE CARE. HE HAS HAD 4 STENTS ALREADY AND HE IS IN A VERY POOR PHYSICAL STATUS. I ALSO CALLED DR. ZAMORA TO HELP US SOLIDIFY OUR RECOMMENDATION TO THE FAMILY. CATH TO BE DONE ON SATURDAY. WASTEWATER MANAGER IS NOT AVAILABLE. FAMILY OKAY WITH IT. CATH SOON. S STABLE. (3) Leukocytosis Current Visit: Yes Status: Acute Plan: This could be an effect of steroids IV given for stress dose for patient who is on steroids orally. To cover for sepsis continue IV Merrem. 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 (5) Septicemia Current Visit: Yes Status: Acute Plan: WE HAD TO RESTART MERREM BUT AGAIN DR. KEITA SAYS IT IS MORE OF CHF THEN PNEUMONIA. [facility] HE HAS ASPIRATION SO FAR WE CAN STOP MERREM. (6) Anemia Current Visit: Yes Status: Acute Plan: HIS HG DROPPED TO 7.3 CHECK GUAIAC CHECK FERRITIN HE HAS HAD BASELINE OF 9 GM HG BEFORE. HEPARIN MAY HAVE ADDED TO ANEMIA. TRANSUFSE AND FU FOLLOWING IS HIS HISTORY. 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 miguel Song. macrocytic, per history baseline about 9 with high ferritin level. miguel Song. 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 ADD MIDODRINE. [facility] CALLED. I ASKED THEM TO CALL IF SHE STILL WANTS TO TRANSFER HIM. SHE SAID NO TO ME YESTERDAY. MIDODRINE DOSE RAISED. (8) Congestive cardiomyopathy Current Visit: Yes Status: Acute Plan: EF IS LOW. DR ZARAGOZA CALLED. HE ADVISED COMFORT CARE ALSO INVASIVE THERAPY WILL NOT CHANGE HIS POOR OUTCOME. FOR LAST FOUR DAYS I AM TRYING TO EXPLAIN THE SAME TO . THE SON AND NURSE IN FAMILY ARE AGGRESSIVE ABOUT THE CARE. THEY INITIALLY WANTED A TRANSFER BUT NOT NOW AND THIS MAY CHANGE. DR. ZARAGOZA MAY DO CATH IF FAMILY WANTS. CATH ON SATURDAY PROGNOSIS OVERALL POOR. FAMILY IS AWARE. (9) Pulmonary edema Current Visit: Yes Status: Acute Plan: BP IS TOO LOW FOR DIURETICS. DR. ZARAGOZA AND DR. KEITA WORKING ON THIS. (10) Dysphagia Current Visit: Yes Status: Acute Plan: HE FAILED MBS. HE WILL NEED G TUBE IF FAMILY WANTS. ONCE AGAIN WE WILL AVOID IT AND DO HOSPICE IF THEY LET US TO KEEP HIM COMFORTABLE. (11) Parkinson disease Current Visit: Yes Status: Chronic Plan: NEW DIAGNOSIS BY DR. CONKLIN. HE WILL NEED THERAPY WHEN DR. CONKLIN CAN FU WITH HIM, IF HE EVER GETS OUT OF HOSPITAL. (12) Hypokalemia Current Visit: Yes Status: Acute Plan: REPLACE [place]
[2024-11-28] MEDS: ACETAMINOPHEN 325 MG TABLET PO PRN (21:31)
[2024-11-29 06:39] LABS: Anion Gap 6.9 mEq/L (5.0-15.0)
[2024-11-29 06:40] LABS: Potassium 3.9 mEq/L (3.5-5.1)
[2024-11-29 07:21] LABS: Absolute Eosinophils 0.1 K/uL (0-0.5); Absolute Lymphocytes (CBC) 2.6 K/uL (0.7-4.9); Absolute Monocytes 1.2 K/uL (0.1-1.3); Absolute Neutrophil 3.4 K/uL (1.8-8.0); Basophils % 0.3 % (0-1.3); Eosinophils % 0.8 % (0-4.4); Hematocrit 36.2 % (39.6-49.0); Hemoglobin 12.6 g/dL (13.6-17.9); Lymphocytes % 35.1 % (15.3-44.8); MCH 37.8 pg (27.0-35.0); MCHC 34.8 g/dL (32.0-36.0); MCV 108.5 fL (80-100); MPV 10.8 fL (7.6-11.3); Monocytes % 16.9 % (3.3-12.3); Neutrophils % 46.9 % (41.7-73.7); Nucleated Red Blood Cells % 0.1 % (0-0); Platelets 134 thou/uL (152-406); RBC Red Blood Cell Count 3.33 M/uL (4.33-5.43); Red Cell Distribution Width 18.9 % (12.1-15.2)
[2024-11-29] MEDS: POTASSIUM 25 MEQ EFFERV TAB PO SCH (08:46)
[2024-11-29] MEDS: PANTOPRAZOLE 40 MG INJ IVP SCH (08:47)
--- NOTE | 2024-11-29 10:47 | P.PN ---
Subjective Date of Service: 11/29/24 Chief Complaint: weak, fatigue. Subjective: Improving HE IS COUGHING SOME BLOOD. WE DID X RAY YEST AND ORDERED CT CHEST ALSO. AT BEDSIDE. HE IS MUCH MORE AWAKE AFTER KEPPRA BUT OTHER ISSUES HAVE COME UP. HE IS NOT ABLE TO SWALLOW. WEAK,BED BOUND, NOT ABLE TO SWALLOW. NO CHEST PAIN. ABLE TO COMMUNICATE AND LOOKS STRONGER FROM FEEDING. GEN WEAK, WAITING FOR PROCEDURES, NOT ABLE TO DO MUCH WITH PT Review of Systems 10-point ROS is otherwise unremarkable Physical Examination - Vital Signs Temperature: 97.0 F Blood Pressure: 94/60 Pulse: 59 Respirations: 17 Pulse Ox (%): 100 - Physical Exam General: Oriented x3, Cachectic, Mild distress HEENT: Atraumatic, PERRLA, EOMI Neck: Supple, JVD not distended Respiratory: Clear to auscultation bilaterally, Normal air movement Cardiovascular: Regular rate/rhythm, Normal S1 S2 Gastrointestinal: Normal bowel sounds, No tenderness Musculoskeletal: No tenderness Integumentary: No rashes Neurological: Normal speech, Normal tone, Normal affect Lymphatics: No axilla or inguinal lymphadenopathy - Studies Medications List Reviewed: Yes Assessment And Plan - Current Problems (Diagnosis) (1) Altered mental status Current Visit: Yes Status: Resolved Plan: HE MOST LIKELY HAD ATYPICAL SEIZURES AND HAS RESPONDED WELL TO KEPPRA IV BID. SWALLOWING NEEDS TO BE CHECKED. PER HPI. MENTATION HAS IMPROVED AFTER KEPPRA. (2) Elevated troponin Current Visit: Yes Status: Acute Plan: SEVERE CONGESTIVE CARDIOMYOPATHY. I ADVISE COMFORT CARE BUT FAMILY SEEMS TO BE IN DENIAL AND WANT AGGRESSIVE CARE. HE HAS HAD 4 STENTS ALREADY AND HE IS IN A VERY POOR PHYSICAL STATUS. I ALSO CALLED DR. ZAMORA TO HELP US SOLIDIFY OUR RECOMMENDATION TO THE FAMILY. CATH TO BE DONE ON SATURDAY. STAVE SAW OPERATOR IS NOT AVAILABLE. FAMILY OKAY WITH IT. CATH SOON. S STABLE. (3) Leukocytosis Current Visit: Yes Status: Acute Plan: This could be an effect of steroids IV given for stress dose for patient who is on steroids orally. To cover for sepsis continue IV Merrem. 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 (5) Septicemia Current Visit: Yes Status: Resolved Plan: WE HAD TO RESTART MERREM BUT AGAIN DR. KEITA SAYS IT IS MORE OF CHF THEN PNEUMONIA. [facility] HE HAS ASPIRATION SO FAR WE CAN STOP MERREM. (6) Anemia Current Visit: Yes Status: Acute Plan: HIS HG DROPPED TO 7.3 CHECK GUAIAC CHECK FERRITIN HE HAS HAD BASELINE OF 9 GM HG BEFORE. HEPARIN MAY HAVE ADDED TO ANEMIA. TRANSUFSE AND FU FOLLOWING IS HIS HISTORY. 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 miguel Song. macrocytic, per history baseline about 9 with high ferritin level. miguel Song. 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 ADD MIDODRINE. [facility] CALLED. I ASKED THEM TO CALL IF SHE STILL WANTS TO TRANSFER HIM. SHE SAID NO TO ME YESTERDAY. MIDODRINE DOSE RAISED. (8) Congestive cardiomyopathy Current Visit: Yes Status: Acute Plan: EF IS LOW. DR ZARAGOZA CALLED. HE ADVISED COMFORT CARE ALSO INVASIVE THERAPY WILL NOT CHANGE HIS POOR OUTCOME. FOR LAST FOUR DAYS I AM TRYING TO EXPLAIN THE SAME TO . THE SON AND NURSE IN FAMILY ARE AGGRESSIVE ABOUT THE CARE. THEY INITIALLY WANTED A TRANSFER BUT NOT NOW AND THIS MAY CHANGE. DR. ZARAGOZA MAY DO CATH IF FAMILY WANTS. CATH ON SATURDAY PROGNOSIS OVERALL POOR. FAMILY IS AWARE. (9) Pulmonary edema Current Visit: Yes Status: Acute Plan: BP IS TOO LOW FOR DIURETICS. DR. ZARAGOZA AND DR. KEITA WORKING ON THIS. (10) Dysphagia Current Visit: Yes Status: Acute Plan: HE FAILED MBS. HE WILL NEED G TUBE IF FAMILY WANTS. ONCE AGAIN WE WILL AVOID IT AND DO HOSPICE IF THEY LET US TO KEEP HIM COMFORTABLE. (11) Parkinson disease Current Visit: Yes Status: Chronic Plan: NEW DIAGNOSIS BY DR. CONKLIN. HE WILL NEED THERAPY WHEN DR. CONKLIN CAN FU WITH HIM, IF HE EVER GETS OUT OF HOSPITAL. (12) Hypokalemia Current Visit: Yes Status: Acute Plan: REPLACE K. (13) Debilitated Current Visit: Yes Status: Acute Plan: FROM MANY MEDICAL ISSUES, CHF, CARDIOMYOPATHY, PARKINSON'S ASPIRATION. DYSPHAGIA, ANEMIA ETC.
--- NOTE | 2024-11-29 14:48 | P.PN ---
Subjective Date of Service: 11/29/24 Chief Complaint: weak, fatigue. Subjective: No new changes, No C/O voiced, Tolerating diet, Ambulating, Improving Review of Systems 10-point ROS is otherwise unremarkable Physical Examination - Vital Signs Temperature: 97.2 F Blood Pressure: 95/57 Pulse: 51 Respirations: 11 Pulse Ox (%): 97 - Physical Exam General: Alert, In no apparent distress HEENT: Atraumatic, PERRLA, EOMI Neck: Supple, JVD not distended Respiratory: Clear to auscultation bilaterally, Normal air movement Cardiovascular: Regular rate/rhythm, Normal S1 S2 Gastrointestinal: Normal bowel sounds, No tenderness Musculoskeletal: No tenderness Integumentary: No rashes Neurological: Normal speech, Normal tone, Normal affect Lymphatics: No axilla or inguinal lymphadenopathy - Studies Medications List Reviewed: Yes Assessment And Plan - Current Problems (Diagnosis) (1) CAD (coronary artery disease), [place] coronary artery Current Visit: No Status: Acute Plan: Patient troponin are elevated with history of CAD and stents, Patient repeated echo shows severe LV dysfunction with severe global hypokinesis. patient will benefit from coronary angiogram but patient overall condition is very poor, discussed with in details, patient and wants to proceed with coronary angiogram and if anything high risk is needed then she prefer patient to be transferred to [facility] as his bisque finisher Dr. Mendoza is there. continue ASA 81 mg daily Plavix 75 mg daily Lipitor 40 mg daily NPO after midnight for coronary angiogram in am will continue to monitor. (2) Acute combined systolic and diastolic heart failure Current Visit: Yes Status: Acute Plan: switch lasix drip to lasix 20 mg IV q8 hours, continue to monitor input and output and electrolytes.
[2024-11-29] MEDS: FUROSEMIDE 20 MG/ 2ML VIAL IV SCH (16:38)
[2024-11-30 05:50] LABS: Absolute Eosinophils 0.1 K/uL (0-0.5); Absolute Lymphocytes (CBC) 2.9 K/uL (0.7-4.9); Absolute Monocytes 1.7 K/uL (0.1-1.3); Absolute Neutrophil 6.2 K/uL (1.8-8.0); Basophils % 0.3 % (0-1.3); Eosinophils % 0.9 % (0-4.4); Hematocrit 38.8 % (39.6-49.0); Hemoglobin 13.4 g/dL (13.6-17.9); Lymphocytes % 26.3 % (15.3-44.8); MCH 37.7 pg (27.0-35.0); MCHC 34.6 g/dL (32.0-36.0); MCV 108.9 fL (80-100); MPV 11.1 fL (7.6-11.3); Monocytes % 15.6 % (3.3-12.3); Neutrophils % 56.9 % (41.7-73.7); Nucleated Red Blood Cells % 0.1 % (0-0); Platelets 144 thou/uL (152-406); RBC Red Blood Cell Count 3.56 M/uL (4.33-5.43); Red Cell Distribution Width 18.4 % (12.1-15.2)
[2024-11-30 06:04] LABS: Anion Gap 9.2 mEq/L (5.0-15.0); Potassium 4.2 mEq/L (3.5-5.1)
[2024-11-30] MEDS: NA CHLORIDE 0.9% 500 ML ONE (10:15)
[2024-11-30] MEDS ORDERED: HEPA 1000U/500MLS 2,000 UNIT/1,000 ML BAG IV ONE (10:36)
[2024-11-30] MEDS ORDERED: ATROPINE SULF 1 MG/10 ML SYR IV ONE (10:36)
[2024-11-30] MEDS ORDERED: CLOPIDOGREL 75 MG TABLET ONE (10:36)
[2024-11-30] MEDS ORDERED: HEPARIN 10,000 UNIT/10 ML VIAL IV ONE (10:36)
[2024-11-30] MEDS ORDERED: LIDOCAINE 1% 20 ML MDV ONE (10:36)
[2024-11-30] MEDS ORDERED: NALOXONE 0.4 MG/ML VIAL ONE (10:37)
[2024-11-30] MEDS ORDERED: ASPIRIN 325 MG TAB ONE (10:37)
[2024-11-30] MEDS ORDERED: Phenylephrine HCl 10 MG/ML 1 ML VIAL ONE (10:37)
[2024-11-30] MEDS ORDERED: HEPARIN 5000 UNIT/ML 1 ML VIAL ONE (10:37)
[2024-11-30] MEDS ORDERED: TICAGRELOR 90 MG TABLET PO ONE (10:37)
[2024-11-30] MEDS ORDERED: FLUMAZENIL 0.1 MG/ML (5 mL VIAL) IV ONE (10:37)
[2024-11-30] MEDS ORDERED: MIDAZOLAM HCL 2 MG/2 ML INJ ONE (10:38)
[2024-11-30] MEDS ORDERED: FENTANYL CITR 100 MCG/2 ML ONE (10:38)
--- NOTE | 2024-11-30 12:07 | P.PN ---
Subjective Date of Service: 11/30/24 Chief Complaint: weak, fatigue. Subjective: No new changes, No C/O voiced, Tolerating diet, Ambulating, Improving Review of Systems 10-point ROS is otherwise unremarkable Physical Examination - Vital Signs Temperature: 97.3 F Blood Pressure: 88/56 Pulse: 57 Respirations: 20 Pulse Ox (%): 99 - Physical Exam General: Alert, In no apparent distress HEENT: Atraumatic, PERRLA, EOMI Neck: Supple, JVD not distended Respiratory: Clear to auscultation bilaterally, Normal air movement Cardiovascular: Regular rate/rhythm, Normal S1 S2 Gastrointestinal: Normal bowel sounds, No tenderness Musculoskeletal: No tenderness Integumentary: No rashes Neurological: Normal speech, Normal tone, Normal affect Lymphatics: No axilla or inguinal lymphadenopathy - Studies Medications List Reviewed: Yes Assessment And Plan - Current Problems (Diagnosis) (1) CAD (coronary artery disease), [place] coronary artery Current Visit: No Status: Acute Plan: Patient troponin are elevated with history of CAD and stents, Patient repeated echo shows severe LV dysfunction with severe global hypokinesis. patient had coronary angiogram done today that shows multivessel CAD, high risk for intervention, patient prefer patient to be transferred to [facility] as his conservator artifacts Dr. Mendoza is there. continue ASA 81 mg daily Plavix 75 mg daily Lipitor 40 mg daily will continue to monitor. (2) Acute combined systolic and diastolic heart failure Current Visit: Yes Status: Acute Plan: switch Lasix to 20 mg po BID continue to monitor input and output and electrolytes.
--- NOTE | 2024-11-30 12:23 | P.DS ---
Admission Date: 11/22/24 Discharge Date: 11/30/24 Disposition: TRANSFER TO [facility] Discharge Condition: SERIOUS Reason for Admission: weak, fatigue. 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 (5) Septicemia Current Visit: Yes Status: Resolved (6) Anemia Current Visit: Yes Status: Acute Qualifiers: Anemia type: bone marrow failure (7) Orthostatic hypotension Current Visit: Yes Status: Chronic (8) Congestive cardiomyopathy Current Visit: Yes Status: Acute (9) Pulmonary edema Current Visit: Yes Status: Acute (10) Dysphagia Current Visit: Yes Status: Acute (11) Parkinson disease Current Visit: Yes Status: Chronic (12) Hypokalemia Current Visit: Yes Status: Acute (13) Debilitated Current Visit: Yes Status: Acute Brief History of Present Illness: Michael has many medical issues includine multivessel coronary stenosis with 5 stents. RA, Relapsing polychondritis, primary hyperthyroidism and possible Parkinson's. He took two baclofen about 2 days ago and has been confused since then. He is not able to verbalize or wake up properly. Hospital Course: MR GARCIA HAS MANY MEDICAL ISSUES. HE COMES WITH OBTUNDATION AND IMPROVES ON IV KEPPRA FOR POSSIBLE ATYPICAL SEIZURES. LATER HE WAS SENT TO ICU FOR SUPERVISION. WE FOUND THAT HE HAD CHF, CONGESTIVE CARDIOMYOPATHY WITH EF OF 20%, PARKINSON'S AND RELATED HYPOTENSION. MIDODRINE HELPED TO RAISE BP AND LASIX DRIP HELPED SOME AFTER THAT. CATH TODAY SHOWED MULTI-VESSEL DISEASE. HE WILL BE TRANSFERRED TO DR. ZAMORA FOR FURTHER MANAGEMENT. Vital Signs/Physical Exam: Temp Pulse Resp BP Pulse Ox 97.3 F 57 20 88/56 L 99 11/30/24 12:07 11/30/24 12:07 11/30/24 12:07 11/30/24 12:07 11/30/24 12:07 Laboratory Data at Discharge: WBC 11.00 thou/uL (4.3-10.9) H 11/30/24 05:16 Hgb 13.4 g/dL (13.6-17.9) L 11/30/24 05:16 Hct 38.8 % (39.6-49.0) L 11/30/24 05:16 Plt Count 144 thou/uL (152-406) L 11/30/24 05:16 PT 15.5 SECONDS (10-13.0) H 11/22/24 08:55 INR 1.38 11/22/24 08:55 APTT 68.0 SECONDS (27.2-37.4) H 11/27/24 07:13 Sodium 131 mEq/L (136-145) L 11/30/24 05:16 Potassium 4.2 mEq/L (3.5-5.1) 11/30/24 05:16 BUN 31 mg/dL (7-18) H 11/30/24 05:16 Creatinine 0.90 mg/dL (0.70-1.30) 11/30/24 05:16 Glucose 140 mg/dL (74-106) H 11/30/24 05:16 Magnesium 2.3 mg/dL (1.6-2.4) 11/22/24 08:55 Total Bilirubin 0.6 mg/dL (0.2-1.0) 11/22/24 08:55 AST 12 U/L (15-37) L 11/22/24 08:55 ALT 30 U/L (16-61) 11/22/24 08:55 Alkaline Phosphatase 81 U/L (45-117) 11/22/24 08:55 Lipase 18 U/L (13-75) 11/22/24 08:55 Home Medications: Aspirin Chewable [Aspirin Chewable*] 81 mg PO DAILY 09/28/22 Atorvastatin Calcium 40 mg PO DAILY 09/28/22 Docusate [Colace Cap*] 50 mg PO DAILY 09/28/22 Famotidine [Pepcid*] 20 mg PO BEDTIME 09/28/22 Hydroxychloroquine [Plaquenil*] 200 mg PO BID 09/28/22 Montelukast Sodium 10 mg PO BEDTIME 09/28/22 Pantoprazole [Protonix Tab*] 40 mg PO DAILY 09/28/22 Sucralfate [Carafate*] 1 g PO DAILY PRN 09/28/22 predniSONE [Prednisone*] 5 mg PO SEECOM 09/28/22 Lactobacillus Rhamnosus R0011 [Probiotic Digestive Care] 1 each PO DAILY 11/22/24 methIMAzole [Methimazole] 5 gm MC QOD QID 11/22/24 Followup: Avelino Acosta MD [Primary Care Provider] -
[2024-11-30] MEDS: FUROSEMIDE 20 MG TABLET PO SCH (20:28)
[2024-11-30 22:05] VITALS: O2SAT 98
[2024-12-01 06:42] LABS: Absolute Eosinophils 0.1 K/uL (0-0.5); Absolute Lymphocytes (CBC) 1.7 K/uL (0.7-4.9); Absolute Monocytes 2.1 K/uL (0.1-1.3); Absolute Neutrophil 6.1 K/uL (1.8-8.0); Basophils % 0.2 % (0-1.3); Eosinophils % 0.8 % (0-4.4); Hematocrit 36.4 % (39.6-49.0); Hemoglobin 12.7 g/dL (13.6-17.9); Lymphocytes % 17.3 % (15.3-44.8); MCH 37.6 pg (27.0-35.0); MCHC 34.8 g/dL (32.0-36.0); MCV 107.9 fL (80-100); MPV 11.5 fL (7.6-11.3); Monocytes % 20.7 % (3.3-12.3); Nucleated Red Blood Cells % 0.2 % (0-0); Platelets 129 thou/uL (152-406); RBC Red Blood Cell Count 3.38 M/uL (4.33-5.43); Red Cell Distribution Width 18.9 % (12.1-15.2)
--- NOTE | 2024-12-01 07:21 | RAD REPORT ---
Procedure: Chest Single View HISTORY: Nasogastric tube placement. FINDINGS: The tip of an NG tube lies within the distal stomach
[2024-12-01] MEDS ORDERED: POTASSIUM 25 MEQ EFFERV TAB PO SCH ×2 (09:00)
[2024-12-01] MEDS: POTASSIUM 25 MEQ EFFERV TAB FT SCH (09:00)
[2024-12-01 09:07] LABS: Band Neutrophils 1 % (0-1); Blood Morphology Comment NOTED (NOT SEEN); Differential Total Cells Count 100; Eosinophils 2 % (0-3); Lymphocytes 18 % (15-42); Macrocytosis 1+; Monocytes 16 % (0-10); Platelet Estimate DECR; Platelets Clumped FEW SMALL; Platelets, Giant FEW; Segmented Neutrophils 63 % (40-80)
[2024-12-01] MEDS: VITAL AF 1,000 ML BOT RTH SCH (11:11)
--- NOTE | 2024-12-01 13:03 | P.PN ---
Subjective Date of Service: 12/01/24 Chief Complaint: weak, fatigue. GEN WEAK, WAITING FOR PROCEDURES, NOT ABLE TO DO MUCH WITH PT NO NEW CHANGES WE ARE WAITING FOR BED IN [facility]. I OFFERED OTHER HOSPITALS BUT HE WANTS TO GO TO [facility] FOR FURTHER CARDIAC WORK UP. Review of Systems 10-point ROS is otherwise unremarkable Physical Examination - Vital Signs Temperature: 97.4 F Blood Pressure: 98/55 Pulse: 62 Respirations: 16 Pulse Ox (%): 97 - Physical Exam General: Cachectic, Mild distress HEENT: Atraumatic, PERRLA, EOMI Neck: Supple, JVD not distended Respiratory: Clear to auscultation bilaterally, Normal air movement Cardiovascular: Regular rate/rhythm, Normal S1 S2 Gastrointestinal: Normal bowel sounds, No tenderness Musculoskeletal: No tenderness Integumentary: No rashes Neurological: Normal speech, Normal tone, Normal affect Lymphatics: No axilla or inguinal lymphadenopathy - Studies Medications List Reviewed: Yes Assessment And Plan - Current Problems (Diagnosis) (1) Altered mental status Current Visit: Yes Status: Resolved Plan: HE MOST LIKELY HAD ATYPICAL SEIZURES AND HAS RESPONDED WELL TO KEPPRA IV BID. SWALLOWING NEEDS TO BE CHECKED. PER HPI. MENTATION HAS IMPROVED AFTER KEPPRA. (2) Elevated troponin Current Visit: Yes Status: Acute Plan: SEVERE CONGESTIVE CARDIOMYOPATHY. I ADVISE COMFORT CARE BUT FAMILY SEEMS TO BE IN DENIAL AND WANT AGGRESSIVE CARE. HE HAS HAD 4 STENTS ALREADY AND HE IS IN A VERY POOR PHYSICAL STATUS. I ALSO CALLED DR. ZAMORA TO HELP US SOLIDIFY OUR RECOMMENDATION TO THE FAMILY. CATH TO BE DONE ON SATURDAY. LUBRICATION WORKER IS NOT AVAILABLE. FAMILY OKAY WITH IT. CATH SOON. S STABLE. (3) Leukocytosis Current Visit: Yes Status: Acute Plan: This could be an effect of steroids IV given for stress dose for patient who is on steroids orally. To cover for sepsis continue IV Merrem. 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 (5) Septicemia Current Visit: Yes Status: Resolved Plan: WE HAD TO RESTART MERREM BUT AGAIN DR. KEITA SAYS IT IS MORE OF CHF THEN PNEUMONIA. [facility] HE HAS ASPIRATION SO FAR WE CAN STOP MERREM. (6) Anemia Current Visit: Yes Status: Acute Plan: HIS HG DROPPED TO 7.3 CHECK GUAIAC CHECK FERRITIN HE HAS HAD BASELINE OF 9 GM HG BEFORE. HEPARIN MAY HAVE ADDED TO ANEMIA. TRANSUFSE AND FU FOLLOWING IS HIS HISTORY. 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 miguel Song. macrocytic, per history baseline about 9 with high ferritin level. miguel Song. 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 ADD MIDODRINE. [facility] CALLED. I ASKED THEM TO CALL IF SHE STILL WANTS TO TRANSFER HIM. SHE SAID NO TO ME YESTERDAY. MIDODRINE DOSE RAISED. (8) Congestive cardiomyopathy Current Visit: Yes Status: Acute Plan: EF IS LOW. DR ZARAGOZA CALLED. HE ADVISED COMFORT CARE ALSO INVASIVE THERAPY WILL NOT CH JONATAN HIS POOR OUTCOME. FOR LAST FOUR DAYS I AM TRYING TO EXPLAIN THE SAME TO . THE SON AND NURSE IN FAMILY ARE AGGRESSIVE ABOUT THE CARE. THEY INITIALLY WANTED A TRANSFER BUT NOT NOW AND THIS MAY CHANGE. DR. ZARAGOZA MAY DO CATH IF FAMILY WANTS. CATH ON SATURDAY PROGNOSIS OVERALL POOR. FAMILY IS AWARE. (9) Pulmonary edema Current Visit: Yes Status: Acute Plan: BP IS TOO LOW FOR DIURETICS. DR. ZARAGOZA AND DR. KEITA WORKING ON THIS. (10) Dysphagia Current Visit: Yes Status: Acute Plan: HE FAILED MBS. HE WILL NEED G TUBE IF FAMILY WANTS. ONCE AGAIN WE WILL AVOID IT AND DO HOSPICE IF THEY LET US TO KEEP HIM COMFORTABLE. (11) Parkinson disease Current Visit: Yes Status: Chronic Plan: NEW DIAGNOSIS BY DR. CONKLIN. HE WILL NEED THERAPY WHEN DR. CONKLIN CAN FU WITH HIM, IF HE EVER GETS OUT OF HOSPITAL. (12) Hypokalemia Current Visit: Yes Status: Acute Plan: REPLACE K. (13) Debilitated Current Visit: Yes Status: Acute Plan: FROM MANY MEDICAL ISSUES, CHF, CARDIOMYOPATHY, PARKINSON'S ASPIRATION. DYSPHAGIA, ANEMIA ETC. REPEAT MBS IF POSSIBLE TODAY.
--- NOTE | 2024-12-01 15:31 | RAD REPORT ---
Modified barium swallow exam with speech pathology service HISTORY: swallow study Fluoroscopy Time: 3 minutes 26 seconds IMPRESSION: Please see the speech pathology service report for details. Barium contrast of multiple consistencies was provided the patient orally by the speech pathology dep artment. Fluoroscopic observation was performed during swallowing. The radiologist was not present for the examination. Pertinent findings: Laryngeal penetration: Not cleared Aspiration: No cough with all consistencies tested. Pharyngeal residue: Pyriform, posterior wall; clearing with multiple swallows. Silent aspiration (high risk) Decreased tongue base retraction. Premature spillage into the valleculae with solids.
[2024-12-02 05:22] VITALS: BMI 24.3
[2024-12-02 08:11] LABS: Absolute Basophils 0.1 K/uL (0-0.5); Absolute Lymphocytes (CBC) 1.3 K/uL (0.7-4.9); Absolute Monocytes 2.3 K/uL (0.1-1.3); Absolute Neutrophil 11.5 K/uL (1.8-8.0); Basophils % 0.4 % (0-1.3); Eosinophils % 0.3 % (0-4.4); Lymphocytes % 8.6 % (15.3-44.8); MCH 37.2 pg (27.0-35.0); MCHC 34.4 g/dL (32.0-36.0); MCV 108.2 fL (80-100); MPV 10.5 fL (7.6-11.3); Monocytes % 15.3 % (3.3-12.3); Neutrophils % 75.4 % (41.7-73.7); Platelets 113 thou/uL (152-406); RBC Red Blood Cell Count 3.24 M/uL (4.33-5.43); Red Cell Distribution Width 18.9 % (12.1-15.2)
[2024-12-02 08:38] LABS: Albumin/Globulin Ratio 0.7 (1.1-1.8); Anion Gap 9.7 mEq/L (5.0-15.0); Globulin 4.2 g/dL (2.3-3.5); Potassium 3.7 mEq/L (3.5-5.1); Protein, Total 7.2 g/dL (6.4-8.2)
[2024-12-02 09:02] VITALS: BP 96/56; TEMP 97.4
--- NOTE | 2024-12-02 13:08 | P.DS ---
Admission Date: 11/22/24 Discharge Date: 12/02/24 Disposition: TRANSFER TO [facility] Discharge Condition: SERIOUS Reason for Admission: weak, fatigue. - Problems (1) Altered mental status Status: Resolved (2) Elevated troponin Status: Acute (3) Leukocytosis Status: Acute (4) Relapsing polychondritis Status: Chronic (5) Septicemia Status: Resolved (6) Anemia Status: Acute Qualifiers: Anemia type: bone marrow failure (7) Orthostatic hypotension Status: Chronic (8) Congestive cardiomyopathy Status: Acute (9) Pulmonary edema Status: Acute (10) Dysphagia Status: Acute (11) Parkinson disease Status: Chronic (12) Hypokalemia Status: Acute (13) Debilitated Status: Acute Brief History of Present Illness: Michael has many medical issues includine multivessel coronary stenosis with 5 stents. RA, Relapsing polychondritis, primary hyperthyroidism and possible Parkinson's. He took two baclofen about 2 days ago and has been confused since then. He is not able to verbalize or wake up properly. Hospital Course: MR GARCIA HAS MANY MEDICAL ISSUES. HE COMES WITH OBTUNDATION AND IMPROVES ON IV KEPPRA FOR POSSIBLE ATYPICAL SEIZURES. LATER HE WAS SENT TO ICU FOR SUPERVISION. WE FOUND THAT HE HAD CHF, CONGESTIVE CARDIOMYOPATHY WITH EF OF 20%, PARKINSON'S AND RELATED HYPOTENSION. MIDODRINE HELPED TO RAISE BP AND LASIX DRIP HELPED SOME AFTER THAT. CATH TODAY SHOWED MULTI-VESSEL DISEASE. HE WILL BE TRANSFERRED TO DR. ZAMORA FOR FURTHER MANAGEMENT. AT LAST [facility] HAD A BED AND HE WAS SENT TODAY. HE ALSO FAILED SECOND MBS TEST. Vital Signs/Physical Exam: Temp Pulse Resp BP Pulse Ox 97.4 F 61 16 96/56 L 99 12/02/24 08:00 12/02/24 08:00 12/02/24 08:00 12/02/24 08:00 12/02/24 08:00 Laboratory Data at Discharge: WBC 15.30 thou/uL (4.3-10.9) H 12/02/24 07:49 Hgb 12.0 g/dL (13.6-17.9) L 12/02/24 07:49 Hct 35.0 % (39.6-49.0) L 12/02/24 07:49 Plt Count 113 thou/uL (152-406) L 12/02/24 07:49 PT 15.5 SECONDS (10-13.0) H 11/22/24 08:55 INR 1.38 11/22/24 08:55 APTT 68.0 SECONDS (27.2-37.4) H 11/27/24 07:13 Sodium 134 mEq/L (136-145) L 12/02/24 07:49 Potassium 3.7 mEq/L (3.5-5.1) 12/02/24 07:49 BUN 38 mg/dL (7-18) H 12/02/24 07:49 Creatinine 0.88 mg/dL (0.70-1.30) 12/02/24 07:49 Glucose 174 mg/dL (74-106) H 12/02/24 07:49 Magnesium 2.3 mg/dL (1.6-2.4) 11/22/24 08:55 Total Bilirubin 1.0 mg/dL (0.2-1.0) 12/02/24 07:49 AST 22 U/L (15-37) 12/02/24 07:49 ALT 54 U/L (16-61) 12/02/24 07:49 Alkaline Phosphatase 121 U/L (45-117) H 12/02/24 07:49 Lipase 18 U/L (13-75) 11/22/24 08:55 Home Medications: Aspirin Chewable [Aspirin Chewable*] 81 mg PO DAILY 09/28/22 Atorvastatin Calcium 40 mg PO DAILY 09/28/22 Docusate [Colace Cap*] 50 mg PO DAILY 09/28/22 Famotidine [Pepcid*] 20 mg PO BEDTIME 09/28/22 Hydroxychloroquine [Plaquenil*] 200 mg PO BID 09/28/22 Montelukast Sodium 10 mg PO BEDTIME 09/28/22 Pantoprazole [Protonix Tab*] 40 mg PO DAILY 09/28/22 Sucralfate [Carafate*] 1 g PO DAILY PRN 09/28/22 predniSONE [Prednisone*] 5 mg PO SEECOM 09/28/22 Lactobacillus Rhamnosus R0011 [Probiotic Digestive Care] 1 each PO DAILY 11/22/24 methIMAzole [Methimazole] 5 gm MC QOD QID 11/22/24 Followup: Avelino Acosta MD [Primary Care Provider] -
--- NOTE | 2024-12-02 15:55 | OP ---
Date of Procedure: 11/30/2024 Surgeon: Tyler Mercado Procedure Performed: Selective coronary angiogram. Indication For Procedure: [id number] IL with a drop in ejection fraction. Complications: None. Estimated Blood Loss: Less than 50 cc. Access: Right ulnar, closed by TR band. Sedation Time: 20 minutes with 1 of Versed and 25 of fentanyl. Description Of Procedure: After risks, and benefits, and alternatives were explained to the patient, the patient agreed to proceed with procedure and signed informed consent. The patient was [facility] to the calibration laboratory technician, prepped and draped in a sterile fashion. Time-out was performed. Sedation was administered. Next, the right ulnar access was obtained using ultrasound-guided micropuncture techni que. [place] 4.0 catheter was advanced to the aortic root. Selective angiogram was done using same ca theter. At the end of the procedure, catheter was removed over a J-wire. Sheath was removed. TR ba nd was applied. Hemostasis was achieved. The patient was moved back to Recovery in stable condition . Findings: 1. Left main normal. 2. LAD; ostial to proximal 80% disease. Then mid stent with diffuse 30% to 40% disease with mid 70% ISR, then mild luminal irregularities. Distal 40% disease. 3. Left circ; proximal mild luminal irregularities, gives large OM1 with proximal 99% disease, then m ild luminal irregularities. 4. RCA; mid 100% occluded with left to right collaterals into RPDA. Assessment And Plan: Significant LAD disease and OM1 disease. Nonoccluded RCA with [id number] collaterals. The plan is to transfer for high-risk PCI versus CABG evaluation as the patient's family prefer to go to the [facility] where the patient's tail puller, Dr. Mendoza, is located. [facility]IFE[facility] Voice ID: [id number] Report ID: [id number]
== END 2024-12-02 10:10 | disposition short-term general hospital (02) | DRG 100 ==
LOC: ER 08:02 → ERHOLD 10:09 → 4TH 11:04 → 3RD-ICU 21:15
PROVIDERS: ADMIT Internal Medicine; ATTEND Internal Medicine
PROC: 30233N1 Transfusion of Nonautologous Red Blood Cells into Peripheral Vein, Percutaneous Approach (ICD-10-PCS; principal; 2024-11-24)
PROC: B2111ZZ Fluoroscopy of Multiple Coronary Arteries using Low Osmolar Contrast (ICD-10-PCS; 2024-11-30)
DX: G40.901 Epilepsy, unspecified, not intractable, with status epilepticus (principal); A41.9 Sepsis, unspecified organism; I21.4 Non-ST elevation (NSTEMI) myocardial infarction; J81.0 Acute pulmonary edema; I50.41 Acute combined systolic (congestive) and diastolic (congestive) heart failure; D61.89 Other specified aplastic anemias and other bone marrow failure syndromes; D61.818 Other pancytopenia; G21.9 Secondary parkinsonism, unspecified; R64 Cachexia; I42.0 Dilated cardiomyopathy; M05.831 Other rheumatoid arthritis with rheumatoid factor of right wrist; I65.21 Occlusion and stenosis of right carotid artery; D63.8 Anemia in other chronic diseases classified elsewhere; E05.90 Thyrotoxicosis, unspecified without thyrotoxic crisis or storm; I25.10 Atherosclerotic heart disease of native coronary artery without angina pectoris; E78.5 Hyperlipidemia, unspecified; K21.9 Gastro-esophageal reflux disease without esophagitis; I25.2 Old myocardial infarction; L93.0 Discoid lupus erythematosus; I95.1 Orthostatic hypotension; E87.6 Hypokalemia; R13.10 Dysphagia, unspecified; Z66 Do not resuscitate; M94.1 Relapsing polychondritis; M81.8 Other osteoporosis without current pathological fracture; T50.905A Adverse effect of unspecified drugs, medicaments and biological substances, initial encounter; M05.832 Other rheumatoid arthritis with rheumatoid factor of left wrist; R79.89 Other specified abnormal findings of blood chemistry; R53.1 Weakness; Z95.5 Presence of coronary angioplasty implant and graft; Z68.26 Body mass index [BMI] 26.0-26.9, adult; Z68.27 Body mass index [BMI] 27.0-27.9, adult; Z11.52 Encounter for screening for COVID-19
CPT/HCPCS: 36415; 51702; 70450; 70551; 71045; 71250; 71275; 72125; 74018; 74176; 74230; 76937; 80048; 80053; 80076; 80177; 81001; 82550; 82607; 82728; 83690; 83735; 83880; 84132; 84145; 84443; 84484; 85014; 85018; 85025; 85610; 85730; 86140; 86850; 86900; 86901; 86920; 87040; 87428; 92526; 92611; 93005; 93306; 93454; 95819; 96360; 97161; 97530; 99285; C1893; J0461; J1644; J1650; J1720; J1940; J1953; J2003; J2185; J2250; J2310; J2371; J2470; J2919; J3010; J3411; J3480; J7030; J7040; J7512; P9016; Q9966; Q9967

== ENCOUNTER 2024-12-10 14:48 | Inpatient (IN) | payer OTHER ==
[2024-12-10] MEDS ORDERED: ACETAMINOPHEN 500 MG TAB PO PRN (17:43)
[2024-12-10] MEDS ORDERED: MELATONIN 3 MG TABLET PO PRN (17:43)
[2024-12-10] MEDS ORDERED: DOCUSATE NA/SENNA CONC 1 TAB PO PRN (17:44)
[2024-12-10 19:15] LABS: Specific Gravity 1.017 (1.005-1.030); Sqamous Epithelial <5 /HPF (None Seen); Urine Bacteria None Seen /HPF (<20); Urine Bilirubin NEGATIVE (Negative); Urine Blood Negative (Negative); Urine Clarity Clear (Clear); Urine Color Light-Yellow (Yellow); Urine Crystals Unidentified Few /HPF (None Seen); Urine Culture Reflex Order NOT NEEDED; Urine Glucose NEGATIVE (Negative); Urine Ketones NEGATIVE (Negative); Urine Micro Reflex YN NO BILL MICROSCOPIC; Urine Mucus Slight /HPF (None Seen); Urine Nitrite NEGATIVE (Negative); Urine Protein NEGATIVE (Negative); Urine RBC <5 /HPF (None Seen); Urine Urobilinogen Normal (Normal); Urine WBC <5 /HPF (<5); Urine WBC Clump Rare /HPF (None Seen); Urine pH 5.5 (5.0-7.0)
[2024-12-10] MEDS ORDERED: MAGNESIUM OXIDE 400 MG TAB PO SCH (20:00)
[2024-12-10] MEDS ORDERED: ENSURE ENLIVE 237 ML CAN PO SCH (20:00)
[2024-12-10] MEDS: EZETIMIBE 10 MG TAB PO SCH (20:32)
[2024-12-10] MEDS: ATORVASTATIN 80 MG TAB PO SCH (20:32)
[2024-12-10] MEDS: ACETAMINOPHEN 500 MG TAB PO PRN (20:32)
[2024-12-10] MEDS: CARBIDOPA/LEVODOPA 25/100 TAB PO SCH (20:32)
[2024-12-10] MEDS: HYDROXYCHLOROQUINE 200MG TAB PO SCH (20:32)
[2024-12-10] MEDS: SIMETHICONE 125 MG TAB PO SCH (20:32)
[2024-12-10] MEDS: DOCUSATE NA 100 MG CAP PO SCH (20:32)
[2024-12-10] MEDS: MONTELUKAST 10 MG TAB PO SCH (20:33)
[2024-12-10] MEDS: levETIRAcetam 500 MG TAB PO SCH (20:33)
[2024-12-10] MEDS ORDERED: PROLIA 60 MG SQ SCH (23:00)
--- NOTE | 2024-12-11 01:25 | HP ---
Date of Admission: 12/10/2024 Time Of Service: 7:00 p.m. Chief Complaint: "I am weak and need to get stronger." History Of Present Illness: Mr. Grant is a 79-year-old patient with coronary artery disease, status post percutaneous angioplasty x5 vessels in 2020; hypertension; dyslipidemia; relapsing polychondrit is; primary hypothyroidism; and parkinsonism. He was transferred from [facility] on [place] h 19 due to multi-vessel coronary artery disease with newly found very severely low ejection fraction of 25%. While he was evaluated, he was found to have urinary incontinence, difficulty speaking, dif ficulty ambulating. CT of the head was negative in the emergency room. Troponins were initially nor mal. However, there was concern for seizures or status epilepticus and he was transferred to ICU, gi anthony IV Keppra, IV stress steroids. In addition, he was noted to have elevated troponin subsequently and echocardiogram again found a severely low left ventricular dysfunction with hypokinesis that is g lobal and ejection fraction 25%. Cardiology evaluated the patient and treated him for non ST-segment myocardial infarction with high-dose heparin and ACS protocol. The patient had of course multiple c omorbid conditions and was eventually placed on dual antiplatelet therapy with heparin. He did have a re-catheterization done, left heart, on 11/30 and at that point had complications of hypotension, p ulmonary infiltrates, and is suspected having had an aspiration pneumonia. The patient did fail a mo dified barium swallow study. He was started on meropenem for the aspiration pneumonia, probably ESBL bacteria as E. coli. He was deemed to have vascular congestion due to CHF instead of actually antib iotic infection. He was treated with Lasix IV drip and pressors. He did have low blood pressures, s ystolic in the 90s. Also, orthostatic. He was placed on midodrine. Had episodes of bradycardia, he art rate in the 50s and low systolics in 90s. The patient did have good oxygen saturation. Subseque nt EKG showed normal sinus rhythm. Labs showed again hyponatremia, hypokalemia and those resolved wi th correction. Hemoglobin is around 9, hematocrit 26.7, platelets 138. Calcium 8.6. He was evaluat ed by the therapy service and found to be at a maximum assistance level for bed mobility, moderate as sistance for vcu-cu-iplds, minimum assistance for taking 2 steps at the bedside. Requires supervisio n for feeding as he has risk of aspiration and spillage noted bringing food to his mouth. The patien ralph was eventually cleared by Speech for regular diet with aspiration precautions to be upright, multip le swallows, and small bites. 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 He was therefore admitted to the [facility] rehabilitation unit to begin aggressive physical, occupational, and speech therapy to help him ret urn towards his prior level of functioning and to reduce the risk of rehospitalization. Past Medical History: As noted above. Allergies: NO KNOWN DRUG ALLERGIES. Medications: Tylenol 500 mg every 6 hours as needed, Lipitor 80 mg at bedtime, Sinemet 25/100 one ta blet twice daily, Colace 100 mg twice daily, Zetia 10 mg at bedtime, Plaquenil 200 mg twice daily, Ke ppra 500 mg twice daily, Singulair 10 mg at bedtime, simethicone 125 mg twice daily. Laboratory Studies: His urinalysis is currently completely normal. White blood cell count currently 7.02, hemoglobin 9.0, hematocrit 27.9, platelets 138. Potassium 4.1, sodium 135. Magnesium 2.1. C alcium 8.6, creatinine 0.7, BUN 23. X-rays: They are pending. Social History: No alcohol, tobacco, or IV drug use. Lives in a single family home. Review of Systems: Currently, some mild shortness of breath and fatigue, mild weakness in the proximal upper and lower e xtremities, mild myalgias, arthralgias, some somnolence or sleepiness, which patient says he is ready to take a nap to begin therapy and mild pain and he is requesting some Tylenol for currently. Family History: Noncontributory. Current Level Of Functioning: Currently, Mr. Grant is at a supervision level for eating, grooming; m aximum assistance for bathing; moderate assistance for upper body dressing; maximal assistance for lo wer body dressing and donning and doffing footwear. Toileting maximum assistance. Transferring bed to chair, to wheelchair, to toilet dependent, total assistance. Toilet transfers, maximum assistance . Ambulation, dependent. Walking just 5 feet. Physical Examination: Vital Signs: Blood pressure 137/63, pulse 38, respiratory rate 17, temperature 97.7, oxygen saturati on 100%. Weight 157 pounds, height 5 feet 9 inches, BMI 23.2. General: Mr. Grant is resting comfortably. He is in mild pain. He says some Tylenol will be helpfu l. HEENT: Otherwise, normocephalic, atraumatic. Sclerae anicteric. Oropharynx pink, moist. Neck: Supple. Chest: Clear. He has proximal 4/5 strength in upper and lower extremities distally. Stronger sens ation, mild stocking-glove loss to light touch and temperature. Coordination is slow, but intact in upper and lower extremities. Rehab And Medical Assessment And Plan: Mr. Grant is a 79-year-old admitted to the inpatient rehabili tation unit with impairment category 06, neurological condition. Impairment group code is 08.3, neur omuscular disorder. Etiologic diagnoses: Congestive heart failure, myopathy. Comorbidities are cor onary artery disease, status post 5 vessel angioplasty, most recent 2020; decreased mobility; decreas ed physical functioning; hypertension; dyslipidemia; relapsing polychondritis; primary hypothyroidis m; and Parkinson disease. Plan: He will have physical, occupational, and speech therapy 3.5 hours, 5 of 7 days. He has contin ued for Parkinson disease, Sinemet 25/100 twice daily; for dyslipidemia, Lipitor 80 mg at bedtime; fo r pain, Tylenol 500 mg every 6 hours as needed. He has Zetia 10 mg at bedtime for cholesterol contro l. He has Plaquenil on board in addition to Keppra 500 mg twice daily for seizure risk reduction. Singulair for his allergies and Phazyme or simethicone 125 mg twice a day for bloating in the abdomin al area. Comorbidities That Are Impacting Rehabilitation: The patient has a risk of seizures. He is on Keppr a. Keppra level will be checked. The patient will have seizure precautions as well and Parkinson's and parkinsonism present, treated with Sinemet, but he may have episodes of freezing and falling and those will be watched more carefully, mobilization will be done. Stretching and mitigating the patie nt's stiffness and tremors during all therapy sessions. Rehab Specific Plan: Mr. Grant will have physical, occupational, and speech therapy 3.5 hours, 5 of 7 days to work on his ability to transfer from bed to chair to a rolling walker and a Rollator. If n eed be, to be able to ambulate without assistive device such as a single prong cane or quad cane. We will work on going up and down steps with bilateral handrails. In addition, with occupational thera py, will work on showering, upper and lower body dressing, donning/doffing footwear, and performing a ll activities of daily living safely. If need be speech will work with him for cognitive issues, saf ety awareness, and to reduce risk of aspiration. Mr. Grant has a good understanding of the process of admission to the inpatient rehabilitation unit, how he will benefit from physical, occupational, and if need be speech therapy. He will have 24 hour s a day, 7 days a week skilled rehabilitation nursing, daily physician evaluation and management, and perinatal social worker evaluation and management for discharge planning, home equipment, and to continue th erapy after he is discharged. If need be, additional help will be sought from the hospitalists. Barriers To Discharge: His movement issue may put him at risk of falling, may require extended stay in shelter. We will work hard, perhaps adjust the Parkinson's medication to help reduce ris k of freezing and falling. His length of stay is about 10 days. Disposition: Expected to be home with continued therapy with the help of family. Prognosis: Good. Code Status: Full code. Rehab Specific Goals: 1. Become independent with upper and lower body dressing and donning and doffing footwear. 2. Independently mobilize a wheelchair 250 feet. 3. Independently walk with a rolling walker 250 feet. 4. Independently go up and down 10 steps with bilateral handrails. 5. Independently perform cognitive functioning. 6. Independently perform all activities of daily living. The above goals were reviewed with Mr. Grant and he is in agreement. By signing this document, I acknowledge I personally performed a full physical examination on Mr. Ifeoma lynn no later than 24 hours after his admission to the inpatient rehabilitation unit and determined he is able to tolerate the above course of treatment at an intensive level for reasonable period of time . A detailed individualized plan of care for him will be completed by hospital day 4 based on the pr eadmission screen, history and physical, and therapy evaluations. TINA Voice ID: [id number]
[2024-12-11 06:30] LABS: Absolute Eosinophils 0.1 K/uL (0-0.5); Absolute Lymphocytes (CBC) 1.1 K/uL (0.7-4.9); Absolute Monocytes 0.8 K/uL (0.1-1.3); Absolute Neutrophil 3.1 K/uL (1.8-8.0); Basophils % 0.8 % (0-1.3); Hematocrit 27.3 % (39.6-49.0); Hemoglobin 9.6 g/dL (13.6-17.9); Lymphocytes % 21.2 % (15.3-44.8); MCH 37.8 pg (27.0-35.0); MPV 11.1 fL (7.6-11.3); Monocytes % 15.3 % (3.3-12.3); Neutrophils % 61.7 % (41.7-73.7); Platelets 132 thou/uL (152-406); RBC Red Blood Cell Count 2.53 M/uL (4.33-5.43); Red Cell Distribution Width 18.5 % (12.1-15.2)
[2024-12-11 06:49] LABS: Albumin 2.5 g/dL (3.4-5.0); Anion Gap 8.5 mEq/L (5.0-15.0); Magnesium 2.1 mg/dL (1.6-2.4); Potassium 3.5 mEq/L (3.5-5.1)
[2024-12-11] MEDS: predniSONE 5 MG TAB PO SCH (09:54)
[2024-12-11] MEDS: SUCRALFATE 1 GM TABLET PO SCH (09:54)
[2024-12-11] MEDS: FUROSEMIDE 40 MG TABLET PO SCH (09:55)
[2024-12-11] MEDS: LACTOBACILLUS/ACIDOPHILUS TAB PO SCH (09:56)
[2024-12-11] MEDS: FAMOTIDINE 20 MG TAB PO SCH (09:56)
[2024-12-11] MEDS: ASPIRIN EC 81 MG TAB PO SCH (09:56)
[2024-12-11] MEDS: CLOPIDOGREL 75 MG TABLET PO SCH (09:56)
[2024-12-11] MEDS: PANTOPRAZOLE 40MG TABLET PO SCH (10:13)
[2024-12-11] MEDS: OCUVITE (VIT A,C & E/LUTEIN/MINERAL) TABLET PO SCH (10:13)
[2024-12-11 10:43] LABS: Differential Total Cells Count 100
[2024-12-11 10:45] LABS: Band Neutrophils 4 % (0-1); Segmented Neutrophils 60 % (40-80)
[2024-12-11 10:46] LABS: Atypical Lymphocytes 1 %; Blood Morphology Comment NOTED (NOT SEEN); Eosinophils 1 % (0-3); Lymphocytes 20 % (15-42); Macrocytosis 1+; Monocytes 14 % (0-10); Platelet Estimate DECR; Platelets, Giant FEW
--- NOTE | 2024-12-11 13:23 | P.RH.PN ---
Estimated Length of Stay: 10 Expected Discharge Date: 12/18/24 Discharge Disposition Plan: Home Family Support: Yes Senior Care Goal: Mobility, Transfers, Self Care Vital Signs: Last Vital Signs Temp 97.6 F 12/11/24 11:30 Pulse 72 12/11/24 11:30 Resp 18 12/11/24 11:30 BP 92/55 L 12/11/24 13:09 Pulse Ox 98 12/11/24 11:30 Laboratory: Laboratory Last Values WBC 5.10 thou/uL (4.3-10.9) 12/11/24 05:28 RBC 2.53 M/uL (4.33-5.43) L 12/11/24 05:28 Hgb 9.6 g/dL (13.6-17.9) L 12/11/24 05:28 Hct 27.3 % (39.6-49.0) L 12/11/24 05:28 MCV 108.0 fL (80-100) H 12/11/24 05:28 MCH 37.8 pg (27.0-35.0) H 12/11/24 05:28 MCHC 35.0 g/dL (32.0-36.0) 12/11/24 05:28 RDW 18.5 % (12.1-15.2) H 12/11/24 05:28 Plt Count 132 thou/uL (152-406) L 12/11/24 05:28 MPV 11.1 fL (7.6-11.3) 12/11/24 05:28 Neutrophils % 61.7 % (41.7-73.7) 12/11/24 05:28 Lymphocytes % 21.2 % (15.3-44.8) 12/11/24 05:28 Monocytes % 15.3 % (3.3-12.3) H 12/11/24 05:28 Eosinophils % 1.0 % (0-4.4) 12/11/24 05:28 Basophils % 0.8 % (0-1.3) 12/11/24 05:28 Absolute Neutrophils 3.1 K/uL (1.8-8.0) 12/11/24 05:28 Segmented Neutrophils 60 % (40-80) 12/11/24 05:28 Band Neutrophils 4 % (0-1) H 12/11/24 05:28 Absolute Lymphocytes 1.1 K/uL (0.7-4.9) 12/11/24 05:28 Lymphocytes 20 % (15-42) 12/11/24 05:28 Monocytes 14 % (0-10) H 12/11/24 05:28 Absolute Monocytes 0.8 K/uL (0.1-1.3) 12/11/24 05:28 Eosinophils 1 % (0-3) 12/11/24 05:28 Absolute Eosinophils 0.1 K/uL (0-0.5) 12/11/24 05:28 Absolute Basophils 0.0 K/uL (0-0.5) 12/11/24 05:28 Atypical Lymphocytes 1 % 12/11/24 05:28 Platelet Estimate Decr 12/11/24 05:28 Giant Platelets Few 12/11/24 05:28 Macrocytosis 1+ 12/11/24 05:28 Morphology Comment Noted (NOT SEEN) 12/11/24 05:28 Sodium 135 mEq/L (136-145) L 12/11/24 05:28 Potassium 3.5 mEq/L (3.5-5.1) 12/11/24 05:28 Chloride 100 mEq/L (98-107) 12/11/24 05:28 Carbon Dioxide 30 mEq/L (21-32) 12/11/24 05:28 Anion Gap 8.5 mEq/L (5.0-15.0) 12/11/24 05:28 BUN 22 mg/dL (7-18) H 12/11/24 05:28 Creatinine 0.73 mg/dL (0.70-1.30) 12/11/24 05:28 Est GFR (CKD-EPI) 94 ml/min (=/>90) 12/11/24 05:28 Glucose 108 mg/dL (74-106) H 12/11/24 05:28 Calcium 8.8 mg/dL (8.5-10.1) 12/11/24 05:28 Magnesium 2.1 mg/dL (1.6-2.4) 12/11/24 05:28 Albumin 2.5 g/dL (3.4-5.0) L 12/11/24 05:28 Prealbumin 12.0 mg/dL (20-40) L 12/11/24 05:28 Urine Color Light-yellow (Yellow) 12/10/24 18:30 Urine Clarity Clear (Clear) 12/10/24 18:30 Urine pH 5.5 (5.0-7.0) 12/10/24 18:30 Ur Specific [place] 1.017 (1.005-1.030) 12/10/24 18:30 Glucose (UA)(Auto) Negative (Negative) 12/10/24 18:30 Urine Ketones Negative (Negative) 12/10/24 18:30 Urine Blood Negative (Negative) 12/10/24 18:30 Urine Nitrite Negative (Negative) 12/10/24 18:30 Urine Bilirubin Negative (Negative) 12/10/24 18:30 Urine Urobilinogen Normal (Normal) 12/10/24 18:30 Ur Leukocyte Esterase Negative Shan/uL (Negative) 12/10/24 18:30 Urine RBC <5 /HPF (None Seen) 12/10/24 18:30 Urine WBC <5 /HPF (<5) 12/10/24 18:30 Urine WBC Clumps Rare /HPF (None Seen) 12/10/24 18:30 Ur Squamous Epith Cells <5 /HPF (None Seen) 12/10/24 18:30 U Non-Squamous Epi Cells <5 /HPF (None Seen) 12/10/24 18:30 Unidentified Crystals Few /HPF (None Seen) 12/10/24 18:30 Urine Bacteria None seen /HPF (<20) 12/10/24 18:30 Urine Mucus Slight /HPF (None Seen) 12/10/24 18:30 Urine Culture Reflexed Not needed 12/10/24 18:30 Urine Total Protein Negative (Negative) 12/10/24 18:30 Weight: 157 lb Physician Update: Low prealbumin and will be on protein supp. Pain is managed. Still has proximal lower extremity weakness. Min assist bed mobility, RW 75' with min assist, 5 stairs mod assist. WC 50' with mod assist. Mod assist transfers, lower body dressing and lower body dressing are independent. Will add midodrine 5 mg tid. Comment: foam on heels Summary: Patient's care plan and intermediate accountant goals have been reviewed and revised as necessary. Please see the Rehabilitation Signature page for all necessary signatures.
[2024-12-11] MEDS: MIDODRINE HCL 5 MG TABLET PO SCH (13:36)
[2024-12-11] MEDS: BISACODYL 10 MG RECTAL SUPP PR ONE (16:37)
[2024-12-12 05:01] VITALS: BMI 21.9
--- NOTE | 2024-12-12 21:23 | P.HP ---
Patient History Date of Service: 12/12/24 Reason for admission: REHAB FOR WEAKNESS. History of Present Illness: MR JOSE WAS HERE WITH SERIOUS ISSUES OF WEAKNESS, ASPIRATION. PULMONARY EDEMA, LATER FOUND TO HAVE EF OF 20% AND MUTLIVESSEL CAD. DR. ZAMORA TOOK CARE OF STENT IN [place] AND HE IS BACK HERE FOR PT. HE HAS BASELINE PARKINSON'S AND POLYCHONDRITIS. Allergies No Known Allergies Allergy (Verified 12/10/24 22:33) Home medications list reviewed: Yes Home Medications: Acetaminophen [Tylenol Extra Strength] 500 mg PO Q6H PRN 12/10/24 Aspirin [Aspirin EC] 81 mg PO DAILY 12/10/24 Atorvastatin Calcium [Lipitor] 80 mg PO BEDTIME 12/10/24 Carbidopa/Levodopa 25-100 [Sinemet 25-100*] 1 tab PO BID 12/10/24 Clopidogrel Bisulfate [Plavix*] 75 mg PO DAILY 12/10/24 Docusate [Colace Cap*] 50 mg PO BID 12/10/24 Ezetimibe [Zetia*] 10 mg PO BEDTIME 12/10/24 Famotidine [Pepcid*] 20 mg PO DAILY 12/10/24 Furosemide [Lasix*] 40 mg PO DAILY 12/10/24 Hydroxychloroquine [Plaquenil*] 200 mg PO BID 12/10/24 Lactobacillus Combo No.13 [Probiotic Pearls Complete] 1 tab PO BID 12/10/24 Montelukast [Singulair*] 10 mg PO BEDTIME 12/10/24 Pantoprazole [Protonix Tab*] 40 mg PO DAILY 12/10/24 Prolia 60 mg SQ SEECOM 12/10/24 Simethicone 125 mg PO BID 12/10/24 Sucralfate [Carafate*] 1 gm PO DAILY 12/10/24 Vit C/E/Zn/Coppr/Lutein/Zeaxan [Preservision Areds 2 Softgel] 1 cap PO BID 12/10/24 levETIRAcetam [Keppra*] 500 mg PO BID 12/10/24 methIMAzole [Methimazole] 5 mg PO DAILY 12/10/24 predniSONE [Prednisone*] 5 mg PO DAILY 12/10/24 - Past Medical/Surgical History Has patient received pneumonia vaccine in the past: Yes Diabetic: No -: shingles -: heart attack 8 yrs ago -: gerd -: HLD -: Lupus -: RA -: Polychondritis -: Nodule on right lung -: parkinsons -: CAD -: NSTEMI -: HTN -: stent placement X2 but has a total of 3 stents -: kypohplasty 2022: w/ spinal fusion -: PCI x 6, most recent November 2024 - Social History Smoking Status: Former smoker Alcohol use: No CD- Drugs: No Caffeine use: Yes Place of Residence: Home Review of Systems 10-point ROS is otherwise unremarkable Physical Examination - Vital Signs Temperature: 98.2 F Blood Pressure: 94/54 Pulse: 55 Respirations: 16 Pulse Ox (%): 98 - Physical Exam General: Mild distress HEENT: Atraumatic, PERRLA, Mucous membr. moist/pink, EOMI, Sclerae nonicteric Neck: Supple, 2+ carotid pulse no bruit, No LAD, Without JVD or thyroid abnormality Respiratory: Clear to auscultation bilaterally, Normal air movement Cardiovascular: Regular rate/rhythm, Normal S1 S2 Gastrointestinal: Normal bowel sounds, No tenderness Musculoskeletal: No tenderness Integumentary: No rashes Neurological: Abnormal gait, Abnormal strength Lymphatics: No axilla or inguinal lymphadenopathy Assessment and Plan - Problems (Diagnosis) (1) Acute combined systolic and diastolic heart failure Current Visit: No Status: Chronic Plan: WILL WATCH STABLE ON MEDS TODAY. HE HAS NO SIGNS OF CHF NOW. SP STENT. (2) CAD (coronary artery disease), [place] coronary artery Current Visit: No Status: Acute (3) Congestive cardiomyopathy Current Visit: No Status: Acute (4) Dysphagia Current Visit: No Status: Acute (5) Orthostatic hypotension Current Visit: No Status: Chronic (6) Parkinson disease Current Visit: No Status: Chronic Plan: PT CONSULT DYSPHAGIA FU ALSO ST. - Advance Directives Does patient have a Living Will: Yes Does patient have a Durable POA for Healthcare: Yes
--- NOTE | 2024-12-13 09:01 | P.PN ---
Subjective Date of Service: 12/13/24 Chief Complaint: REHAB FOR WEAKNESS. Subjective: Improving HE WENT THROUGH A COMPLICATED HOSPITAL ADMISSION RECENTLY. HE HAS CAD,CHF,CONGESTIVE CARDIOMYOPATHY, PD, POLYCHONDRITIS AND ORTHOSTATIC HYPOTENSION. HE NOW HAS A PRESSURE SORE L HEEL SINCE ADMISSIONS. Review of Systems 10-point ROS is otherwise unremarkable General: Weakness Physical Examination - Vital Signs Temperature: 97.2 F Blood Pressure: 101/53 Pulse: 49 Respirations: 18 Pulse Ox (%): 97 - Physical Exam General: Cachectic, Mild distress HEENT: Atraumatic, PERRLA, EOMI Neck: Supple, JVD not distended Respiratory: Clear to auscultation bilaterally, Normal air movement Cardiovascular: Regular rate/rhythm, Normal S1 S2 Gastrointestinal: Normal bowel sounds, No tenderness Musculoskeletal: No tenderness Integumentary: Pressure ulcer (STAGE 2, UNOPENED.) Neurological: Normal speech, Normal tone, Normal affect Lymphatics: No axilla or inguinal lymphadenopathy - Studies Microbiology Data (last 24 hrs): 12/10/24 18:30 Clean Catch Urine [place] Count - Final <10,000 CFU/ML. 12/10/24 18:30 Clean Catch Urine - Final MIXED AURY. Medications List Reviewed: Yes Assessment And Plan - Current Problems (Diagnosis) (1) Acute combined systolic and diastolic heart failure Current Visit: No Status: Chronic Plan: WILL WATCH STABLE ON MEDS TODAY. HE HAS NO SIGNS OF CHF NOW. SP STENT. (2) CAD (coronary artery disease), [place] coronary artery Current Visit: No Status: Acute (3) Congestive cardiomyopathy Current Visit: No Status: Acute (4) Dysphagia Current Visit: No Status: Acute (5) Orthostatic hypotension Current Visit: No Status: Chronic (6) Parkinson disease Current Visit: No Status: Chronic Plan: PT CONSULT DYSPHAGIA FU ALSO ST. (7) Stage II pressure ulcer of heel Current Visit: Yes Status: Acute Plan: CHECK PVD HE HAS BEEN TO MANY CARDIOLOGISTS. Qualifiers: Laterality: left Qualified Code(s): L89.622 - Pressure ulcer of left heel, stage 2
--- NOTE | 2024-12-13 12:25 | RAD REPORT ---
EXAM: Lower Extremity Artery Uni Ltd HISTORY: PVD COMPARISON: None TECHNIQUE: Multiplanar grayscale and color Doppler images were obtained and a left lower extremity ar terial ultrasound. Spectral analysis of the Doppler waveforms were performed. FINDINGS: Left lower extremity: Common femoral artery: Triphasic Superficial femoral artery: Triphasic Popliteal artery: Triphasic Posterior tibial artery: Biphasic Dorsalis pedis artery: Monophasic IMPRESSION: Monophasic waveform in the left DPA likely reflecting at least moderate stenosis. The other vessels a ll have multiphasic waveforms and are patent.
--- NOTE | 2024-12-13 19:58 | RAD REPORT ---
EXAM: AP view(s) of the abdomen Abdomen 1 View (KUB) HISTORY: r/o obstruction COMPARISON: 11/26/2024 FINDINGS: Nonobstructive bowel gas pattern.. Contrast present in the rectum and within multiple colon divertic ron. No suspicious calcifications are seen. No acute osseous abnormality. Other: n/a IMPRESSION: Nonobstructive bowel gas pattern.
[2024-12-13] MEDS ORDERED: TRAZODONE 50 MG TABLET PO PRN (20:48)
[2024-12-13] MEDS: TRAMADOL HCL 50 MG TAB PO PRN (21:21)
[2024-12-13] MEDS: PANTOPRAZOLE 40MG TABLET PO ONE (21:21)
[2024-12-14] MEDS ORDERED: PANTOPRAZOLE 40MG TABLET PO SCH (07:30)
[2024-12-14] MEDS: FUROSEMIDE 40 MG TABLET PO SCH (08:00)
[2024-12-14] MEDS: FLUDROCORTISONE 0.1 MG TAB PO SCH (08:01)
[2024-12-14] MEDS: POLYETHYL GLY 3350 17 GM/DOSE PO PRN (11:00)
[2024-12-14] MEDS: CYANOCOBALAMIN 1000MCG/ML INJ IM ONE (14:06)
--- NOTE | 2024-12-14 17:21 | P.PN ---
Subjective Date of Service: 12/14/24 Chief Complaint: REHAB FOR WEAKNESS. Subjective: Improving HE WENT THROUGH A COMPLICATED HOSPITAL ADMISSION RECENTLY. HE HAS CAD,CHF,CONGESTIVE CARDIOMYOPATHY, PD, POLYCHONDRITIS AND ORTHOSTATIC HYPOTENSION. HE NOW HAS A PRESSURE SORE L HEEL SINCE ADMISSIONS. Review of Systems 10-point ROS is otherwise unremarkable General: Weakness Physical Examination - Vital Signs Temperature: 97.6 F Blood Pressure: 97/65 Pulse: 62 Respirations: 16 Pulse Ox (%): 99 - Physical Exam General: In no apparent distress, Cachectic HEENT: Atraumatic, PERRLA, EOMI Neck: Supple, JVD not distended Respiratory: Clear to auscultation bilaterally, Normal air movement Cardiovascular: Regular rate/rhythm, Normal S1 S2 Gastrointestinal: Normal bowel sounds, No tenderness Musculoskeletal: No tenderness Integumentary: No rashes Neurological: Normal speech, Normal tone, Normal affect Lymphatics: No axilla or inguinal lymphadenopathy - Studies Medications List Reviewed: Yes Assessment And Plan - Current Problems (Diagnosis) (1) Acute combined systolic and diastolic heart failure Current Visit: No Status: Chronic Plan: WILL WATCH STABLE ON MEDS TODAY. HE HAS NO SIGNS OF CHF NOW. SP STENT. REDO CXR. (2) CAD (coronary artery disease), [place] coronary artery Current Visit: No Status: Acute (3) Congestive cardiomyopathy Current Visit: No Status: Acute (4) Dysphagia Current Visit: No Status: Acute (5) Orthostatic hypotension Current Visit: No Status: Chronic Plan: REDUCE LASIX IF CAN FLORINEF BY DR. MEZA BUT IT MAY EXACERBATE CHF. WILL AVOID IF WE CAN. (6) Parkinson disease Current Visit: No Status: Chronic Plan: PT CONSULT DYSPHAGIA FU ALSO ST. (7) Stage II pressure ulcer of heel Current Visit: Yes Status: Acute Plan: CHECK PVD HE HAS BEEN TO MANY CARDIOLOGISTS. Qualifiers: Laterality: left Qualified Code(s): L89.622 - Pressure ulcer of left heel, stage 2 (8) PVD (peripheral vascular disease) Current Visit: Yes Status: Chronic Plan: L LEG HE SEES DR. ZAMORA HE WILL FU.
--- NOTE | 2024-12-14 18:26 | RAD REPORT ---
EXAM: Chest Pa And Lat (2 Views) HISTORY: 79 years Male DYSPNEA, FOLLOW UP COMPARISON: 11/28/2024 FINDINGS: LUNGS/PLEURA: The lungs are clear. No pleural effusions or pneumothorax. No pulmonary edema. CARDIAC/MEDIASTINUM: The cardiac silhouette is within normal limits. UPPER ABDOMEN: No significant abnormality. BONES: No acute abnormality. LINES/TUBES/OTHER: N/A IMPRESSION: No evidence of acute cardiopulmonary disease.
[2024-12-14] MEDS ORDERED: PANTOPRAZOLE 40MG TABLET PO ONE (18:50)
[2024-12-14] MEDS: PANTOPRAZOLE 40MG TABLET PO SCH (18:58)
--- NOTE | 2024-12-15 01:08 | PN ---
Date of Progress Note: 12/14/2024 Time Of Service: 1:50 p.m. Subjective: Mr. Grant is resting in bed. He does report some more fatigue and weakness today, espec ially in the proximal lower extremities making it difficult for him to mobilize and be out of bed. Scotty albarran is diagnosed with parkinsonism, which is a contributing factor to likely the stiffness and difficul ty initiating movement. Otherwise, some issues with sleeping and bowel movements. He was worried ab out not having good bowel movements, which he did actually on Saturday had a very good bowel movement, but over the weekend had a very small one. A KUB study that was done showed increased abdominal gas and mild amount of stool around the upper area, perhaps transverse colon. He is managed by Dr. Acosta for his comorbid conditions. Physical Examination: Vital Signs: Blood pressure is low at 97/65, pulse 62, respiratory rate 16, temperature 97.6, oxygen saturation 99%. General: Again, Mr. Grant is lying in bed. He is in no significant distress, just appeared somewhat fatigued. We will have B12 shot to help him with his energy level, but he has no focal deficits, ju st proximal weakness in the lower and upper extremities consistent with myopathy. Laboratory Studies: White blood cell count 5.1, hemoglobin 9.6, platelets 132. Sodium 135, potassiu m 3.5, chloride 100, carbon dioxide 30, BUN 22, creatinine 0.73, glucose 108. Calcium 8.8, magnesium 2.1, albumin 2.5. Prealbumin 12.0. TSH is 3.170. Urinalysis from the was completely normal. X-ray/imaging: Chest x-ray was done earlier today. The study shows no evidence of acute cardiopulmo nary disease. A KUB study done yesterday shows nonobstructive bowel gas pattern. There are multiple colon diverticula. No suspicious calcifications. Nonobstructive bowel gas pattern. There was a Do ppler study done on 12/13/2024. The study showed monophasic waveform in the left lower extremity tony salis pedis artery, likely reflecting at least moderate stenosis. Other vessels all had multiphasic waves and are patent. Progress Made With Physical And Occupational Therapy: With physical therapy today, bed mobility, tur enrike in bed, supine to sit with min assist. Completed multiple [id number]-vx-[id number] transfers and stand pivo t transfers with minimum assistance. He ambulated 100 feet with a rolling walker with minimum assist ance and attempted to complete some stairs, just a few with minimum to moderate assistance. Mobilize d wheelchair 100 feet with contact guard assistance. With his occupational therapy, he did have sign ificant low blood pressures around 97/50 and 96/53. He was somewhat symptomatic, had to remain in be d as he was significantly weak. It is noted that any antihypertensive medications will be held when systolic is less than 130. He also required maximal assistance for toileting. Minimum assistance fo r toilet transfers. Subsequently at one session, blood pressure did go up to 114/62, pulse of 72. Assessment: Mr. Grant is a 79-year-old patient in the rehabilitation unit with congestive heart fail ure myopathy. He has decreased mobility and decreased physical functioning in addition to hypertensi on and dyslipidemia. He has hypotension now, relapsing polychondritis, Parkinson disease. Plan: Will continue with physical and occupational therapy 3 hours a day, 5 of 7 days. Of note, hol d antihypertensive medications if systolic blood pressure is less than 120. He had insomnia addresse d with trazodone, tramadol for pain, simethicone for bloating. He has Carafate for stool softening, Protonix for GE reflux, Singulair for seasonal allergies, Keppra 500 mg twice daily for seizure risk reduction, Lasix for fluid management, Colace 100 mg twice daily for constipation, Plavix 75 mg daily for stroke risk reduction. He has carbidopa/levodopa (Sinemet) 25/100 twice daily, Lipitor for dysl ipidemia, aspirin for stroke risk reduction. In terms of the therapy, he will continue with 3 hours a day 5 of 7 days, and continue with all comorbid condition medications. LB/MODL Voice ID: [id number] Report ID: [id number]
--- NOTE | 2024-12-15 13:26 | P.PN ---
Subjective Date of Service: 12/15/24 Chief Complaint: REHAB FOR WEAKNESS. Subjective: Improving HE WENT THROUGH A COMPLICATED HOSPITAL ADMISSION RECENTLY. HE HAS CAD,CHF,CONGESTIVE CARDIOMYOPATHY, PD, POLYCHONDRITIS AND ORTHOSTATIC HYPOTENSION. HE NOW HAS A PRESSURE SORE L HEEL SINCE ADMISSIONS. STABLE I TOLD HIM ABOUT PVD AND HE WILL FU WITH DR. ZAMORA. OFFLOAD THE HEELS. Physical Examination - Vital Signs Temperature: 98.2 F Blood Pressure: 134/65 Pulse: 70 Respirations: 18 Pulse Ox (%): 99 - Studies Medications List Reviewed: Yes Assessment And Plan - Current Problems (Diagnosis) (1) Acute combined systolic and diastolic heart failure Current Visit: No Status: Chronic Plan: WILL WATCH STABLE ON MEDS TODAY. HE HAS NO SIGNS OF CHF NOW. SP STENT. REDO CXR. (2) CAD (coronary artery disease), [place] coronary artery Current Visit: No Status: Acute (3) Congestive cardiomyopathy Current Visit: No Status: Acute (4) Dysphagia Current Visit: No Status: Acute (5) Orthostatic hypotension Current Visit: No Status: Chronic Plan: REDUCE LASIX IF CAN FLORINEF BY DR. MEZA BUT IT MAY EXACERBATE CHF. WILL AVOID IF WE CAN. (6) Parkinson disease Current Visit: No Status: Chronic Plan: PT CONSULT DYSPHAGIA FU ALSO ST. (7) Stage II pressure ulcer of heel Current Visit: Yes Status: Acute Plan: CHECK PVD HE HAS BEEN TO MANY CARDIOLOGISTS. Qualifiers: Laterality: left Qualified Code(s): L89.622 - Pressure ulcer of left heel, stage 2 (8) PVD (peripheral vascular disease) Current Visit: Yes Status: Chronic Plan: L LEG HE SEES DR. ZAMORA HE WILL FU.
[2024-12-15] MEDS: ZINC OXIDE 20% OINTMENT 60gm TOP SCH (19:09)
[2024-12-15] MEDS: MELATONIN 3 MG TABLET PO PRN (19:10)
--- NOTE | 2024-12-15 19:59 | PN ---
Date of Progress Note: 12/15/2024 Time Of Service: 1:50 p.m. Subjective: Mr. Grant is doing very well. He has no new complaints. Still somewhat fatigued and ti red, but did better. is at bedside. He does say still has some difficulty with shortness of br eath. He is actually not using his incentive spirometry which was not quite at the bedside. It was moved towards the bedside for him to encourage to use it. Still has significant weakness in the lowe r extremities proximally. Objective: No fevers, chills. Mild myalgias, arthralgias. Mild weakness as noted in the proximal l ower extremities. No active psychiatric issues, gastrointestinal issues or genitourinary issues. Physical Examination: Vital Signs: Blood pressure 134/65, pulse 70, respiratory rate 16, temperature 98.2, oxygen saturati on 99%. General: Mr. Grant is lying comfortably in bed. He is in no acute distress. HEENT: He is normocephalic, atraumatic. Sclerae anicteric. Oropharynx moist. Neck: Supple. Chest: Clear. Decreased breath sounds. Abdomen: Soft. Extremities: No significant edema, cyanosis, or clubbing. Laboratory Studies: No new laboratory studies. X-ray/imaging: No new x-rays or imaging. Medications: Medications have been reviewed and are unchanged. He is followed by Dr. Karla bosch [facility] physician who is managing medical conditions. Progress With Physical, Occupational Therapy: With physical therapy today, he did bed mobilization, turning in bed, supine to sit with contact guard to minimum assistance. Multiple [id number] transf ers with contact guard to minimum assistance. He ambulated 150 feet with a rolling walker with conta ct guard assistance, then went up and down 15 steps with minimum assistance. Completed wheelchair mo bilization 250 feet with contact guard to minimum assistance on different surfaces. With occupationa l therapy, performed toilet transfers with contact guard assistance. Wheeled himself to shower bench transfer using grab bar. He did have some cues required. He did have significant drop in his blood pressure to 95/59 with pulse of 63 while sitting in the wheelchair prior to getting to the shower. His blood pressure did increase to 109/61, pulse of 61 and abdominal binder and YUE hose were placed. He does have pressor medication given for blood pressure support. Assessment: Mr. Grant is a 79-year-old patient with CHF myopathy. He has decreased mobility, decrea sed physical functioning, insomnia, mild pain, mild malnutrition, orthostatic hypotension. He has se izures and seizure risk addressed with Omar Werner on board. He has Lasix for fluid management , Colace for stool softening, Plavix and aspirin for stroke risk reduction. Lipitor for dyslipidemia . He has Tylenol for pain. Plan: We will continue with physical and occupational therapy 3 hours a day, 5/7 days. His comorbid conditions have been identified. They are managed by continuing his list of medications. Dr. Acosta is in charge of his comorbid conditions. MONICA/IFEOMA Voice ID: [id number] Report ID: [id number]
[2024-12-16] MEDS: ENSURE HIGH PROTEIN 237 ML CAN PO SCH (09:36)
[2024-12-16] MEDS: MIDODRINE HCL 5 MG TABLET PO SCH ×2 (14:58→20:03)
--- NOTE | 2024-12-16 15:42 | RAD REPORT ---
Procedure: Chest Single View HISTORY: Shortness of breath COMPARISON: December 15, 2023 FINDINGS: The lungs appear clear of acute infiltrate. Calcified granuloma right lung. No significant pleural effusion noted. The heart is mildly enlarged. IMPRESSION: No acute abnormality is displayed.
--- NOTE | 2024-12-16 18:13 | P.PN ---
Subjective Date of Service: 12/16/24 Chief Complaint: REHAB FOR WEAKNESS. Subjective: Improving HE WENT THROUGH A COMPLICATED HOSPITAL ADMISSION RECENTLY. HE HAS CAD,CHF,CONGESTIVE CARDIOMYOPATHY, PD, POLYCHONDRITIS AND ORTHOSTATIC HYPOTENSION. HE NOW HAS A PRESSURE SORE L HEEL SINCE ADMISSIONS. STABLE I TOLD HIM ABOUT PVD AND HE WILL FU WITH DR. ZAMORA. OFFLOAD THE HEELS. GEN WEAK HE WORKING HARD TO GET HOME. Review of Systems 10-point ROS is otherwise unremarkable General: Weakness, As per HPI Physical Examination - Vital Signs Temperature: 97.2 F Blood Pressure: 99/53 Pulse: 50 Respirations: 18 Pulse Ox (%): 99 - Physical Exam General: In no apparent distress, Cachectic HEENT: Atraumatic, PERRLA, EOMI Neck: Supple, JVD not distended Respiratory: Clear to auscultation bilaterally, Normal air movement Cardiovascular: Regular rate/rhythm, Normal S1 S2 Gastrointestinal: Normal bowel sounds, No tenderness Musculoskeletal: No tenderness Integumentary: No rashes Neurological: Normal speech, Normal tone, Normal affect Lymphatics: No axilla or inguinal lymphadenopathy - Studies Medications List Reviewed: Yes Assessment And Plan - Current Problems (Diagnosis) (1) Acute combined systolic and diastolic heart failure Current Visit: No Status: Chronic Plan: WILL WATCH STABLE ON MEDS TODAY. HE HAS NO SIGNS OF CHF NOW. SP STENT. REDO CXR. (2) CAD (coronary artery disease), [place] coronary artery Current Visit: No Status: Acute (3) Congestive cardiomyopathy Current Visit: No Status: Acute (4) Dysphagia Current Visit: No Status: Acute (5) Orthostatic hypotension Current Visit: No Status: Chronic Plan: REDUCE LASIX IF CAN FLORINEF BY DR. MEZA BUT IT MAY EXACERBATE CHF. WILL AVOID IF WE CAN. (6) Parkinson disease Current Visit: No Status: Chronic Plan: PT CONSULT DYSPHAGIA FU ALSO ST. (7) Stage II pressure ulcer of heel Current Visit: Yes Status: Acute Plan: CHECK PVD HE HAS BEEN TO MANY CARDIOLOGISTS. Qualifiers: Laterality: left Qualified Code(s): L89.622 - Pressure ulcer of left heel, stage 2 (8) PVD (peripheral vascular disease) Current Visit: Yes Status: Chronic Plan: L LEG HE SEES DR. ZAMORA HE WILL FU.
--- NOTE | 2024-12-16 23:48 | PN ---
Subjective: Today, he is doing well, out of bed, sitting in a chair, less tired, but still fatigued after a good session of exercise. He is doing incentive spirometry, but not as judiciously as he is instructed. Objective: He denies any fevers, chills, nausea, vomiting. Has still weakness possibly in the lower and upper extremities. No other positives on systems review. Physical Examination: Vital Signs: Blood pressure 106/53, pulse 52, respiratory rate 18, temperature 97.9, and oxygen satu ration 99%. General: Mr. Grant again is sitting in a chair beside bed. HEENT: He appears normocephalic, atraumatic. Sclerae anicteric. Oropharynx pink and moist. Chest: Slightly decreased breath sounds. Abdomen: Soft. Extremities: No significant edema in the lower extremities. Laboratory Studies: No new laboratory studies. X-ray/imaging: He actually did have a chest x-ray done today. The study showed no acute abnormaliti es. Progress Made With Physical And Occupational Therapy: Today, he completed gait training with 500 fee t with a rolling walker with contact guard to standby assistance. He was up and down 15 steps with b ilateral handrails with contact guard assistance and mobilized a wheelchair 400 feet with supervision to modified independence. With occupational therapy, supervision for [id number]-wc-[id number] transfers, did 4 sets, and did very well. Assessment: Mr. Grant is a 79-year-old patient, admitted to the rehabilitation unit with CHF myopath y. He has weakness in the proximal lower and upper extremities. Still has decreased mobility, decre ased physical functioning, orthostatic hypotension, risk of seizures, and dyslipidemia along with mil d pain. Plan: 1. He will continue with physical, occupational, and speech therapy 3.5 hours, 5 of 7 days. 2. He has multiple comorbid conditions that are managed by his medications including carbidopa/levodo pa for Parkinson's, Lipitor for dyslipidemia, aspirin for stroke risk reduction along with Plavix. Scotty albarran has Colace for constipation, Zetia for his dyslipidemia, Florinef for blood pressure support. In a ddition, Plaquenil for his arrhythmia. He has melatonin for insomnia, midodrine for pressure support , and he will continue with therapy, physical and occupational, 3 hours a day, 5 of 7 days, and Dr. Sarah alfaro is managing his comorbid conditions. LB/MODJanell Voice ID: [id number] Report ID: [id number]
[2024-12-17 07:06] LABS: Absolute Eosinophils 0.1 K/uL (0-0.5); Absolute Lymphocytes (CBC) 1.3 K/uL (0.7-4.9); Absolute Monocytes 0.4 K/uL (0.1-1.3); Basophils % 0.7 % (0-1.3); Eosinophils % 1.7 % (0-4.4); Hematocrit 24.5 % (39.6-49.0); Hemoglobin 8.6 g/dL (13.6-17.9); Lymphocytes % 33.6 % (15.3-44.8); MCH 37.8 pg (27.0-35.0); MCHC 34.9 g/dL (32.0-36.0); MCV 108.4 fL (80-100); MPV 10.1 fL (7.6-11.3); Monocytes % 10.8 % (3.3-12.3); Neutrophils % 53.2 % (41.7-73.7); Nucleated Red Blood Cells % 0.1 % (0-0); Platelets 108 thou/uL (152-406); RBC Red Blood Cell Count 2.27 M/uL (4.33-5.43)
[2024-12-17 07:10] LABS: Albumin 2.4 g/dL (3.4-5.0); Anion Gap 8.2 mEq/L (5.0-15.0); Magnesium 2.1 mg/dL (1.6-2.4); Potassium 3.2 mEq/L (3.5-5.1); Prealbumin 14.4 mg/dL (20-40)
[2024-12-17] MEDS: MIDODRINE HCL 5 MG TABLET PO SCH (09:19)
[2024-12-17] MEDS: LIDOCAINE 4% PATCH TOP SCH (09:28)
--- NOTE | 2024-12-17 19:45 | PN ---
Date of Progress Note: 12/17/2024 Time Of Service: 1:15 p.m. Subjective: Mr. Grant is doing better today, exercises in bed. He is still complaining of significa nt fatigue, but is making good progress. Objective: No fevers, chills, nausea, vomiting. Still has proximal weakness in terms of lower extre mity and upper extremity. No new complaints. Physical Examination: Vital Signs: Blood pressure 107/41, pulse of 60, respiratory rate 17, temperature 97.6, oxygen satur ation 97%. HEENT: He is normocephalic, atraumatic. Sclerae anicteric. Oropharynx pink, moist. Neck: Supple. Chest: Clear. Extremities: No significant edema, cyanosis, or clubbing noted. Laboratory Studies: White blood cell count 3.7, hemoglobin 8.6, platelets are 108. Sodium 137, pota ssium 3.2, chloride 101, BUN 14, creatinine 0.8. Albumin 2.4,prealbumin 14.4. X-ray/imaging: No new x-rays or imaging. Medications: Have been reviewed and are unchanged. His comorbid conditions are managed by Dr. Acosta . Progress Made With Physical, Occupational Therapy: Today, with physical therapy, he did multiple sit -to-stand transfers with contact guard assistance. He did a simulated car transfer with minimum assi stance. He mobilized a wheelchair 250 feet with contact guard assistance and ambulated 250 feet with rolling walker with contact guard assistance. With occupational therapy, minimum assistance for sup ine-to-sit transfers, ntl-ec-[id number] transfers at edge of bed, standby assistance. Assessment: Mr. Grant is a 79-year-old patient in rehabilitation unit with CHF myopathy including pr oximal weakness in lower and upper extremity. He has decreased mobility, decreased physical function ing, dyslipidemia, stroke risk. He is on aspirin and Plavix for that. He has constipation. He has Colace in addition to Carafate. He has prednisone on board for adrenal insufficiency, tramadol for p ain, Protonix for GE reflux. Plan: Will continue with physical and occupational therapy 3 hours a day, 5 of 7 days. His multiple comorbid conditions are managed by Dr. Acosta including his Sinemet for Parkinson's disease. He is o n 25/100 twice daily. LB/MODL Voice ID: [id number] Report ID: [id number]
--- NOTE | 2024-12-18 09:53 | P.PN ---
Subjective Date of Service: 12/17/24 Chief Complaint: REHAB FOR WEAKNESS. HE WENT THROUGH A COMPLICATED HOSPITAL ADMISSION RECENTLY. HE HAS CAD,CHF,CONGESTIVE CARDIOMYOPATHY, PD, POLYCHONDRITIS AND ORTHOSTATIC HYPOTENSION. HE NOW HAS A PRESSURE SORE L HEEL SINCE ADMISSIONS. STABLE I TOLD HIM ABOUT PVD AND HE WILL FU WITH DR. ZAMORA. OFFLOAD THE HEELS. GEN WEAK HE WORKING HARD TO GET HOME. HE WALKED ABOUT 200 FEET. Review of Systems 10-point ROS is otherwise unremarkable General: Weakness, Malaise Physical Examination - Vital Signs Temperature: 98.1 F Blood Pressure: 95/51 Pulse: 59 Respirations: 16 Pulse Ox (%): 97 - Physical Exam General: Cachectic, Mild distress HEENT: Atraumatic, PERRLA, EOMI Neck: Supple, JVD not distended Respiratory: Clear to auscultation bilaterally, Normal air movement Cardiovascular: Regular rate/rhythm, Normal S1 S2 Gastrointestinal: Normal bowel sounds, No tenderness Musculoskeletal: No tenderness Integumentary: No rashes, Other (STAGE 2 HEEL ULCERS. NOT OPEN YET. ) Neurological: Normal speech, Normal tone, Normal affect Lymphatics: No axilla or inguinal lymphadenopathy - Studies Medications List Reviewed: Yes Assessment And Plan - Current Problems (Diagnosis) (1) Acute combined systolic and diastolic heart failure Current Visit: No Status: Chronic Plan: WILL WATCH STABLE ON MEDS TODAY. HE HAS NO SIGNS OF CHF NOW. SP STENT. REDO CXR. (2) CAD (coronary artery disease), [place] coronary artery Current Visit: No Status: Acute (3) Congestive cardiomyopathy Current Visit: No Status: Acute (4) Dysphagia Current Visit: No Status: Acute (5) Orthostatic hypotension Current Visit: No Status: Chronic Plan: REDUCE LASIX IF CAN FLORINEF BY DR. MEZA BUT IT MAY EXACERBATE CHF. WILL AVOID IF WE CAN. (6) Parkinson disease Current Visit: No Status: Chronic Plan: PT CONSULT DYSPHAGIA FU ALSO ST. (7) Stage II pressure ulcer of heel Current Visit: Yes Status: Acute Plan: CHECK PVD HE HAS BEEN TO MANY CARDIOLOGISTS. Qualifiers: Laterality: left Qualified Code(s): L89.622 - Pressure ulcer of left heel, stage 2 (8) PVD (peripheral vascular disease) Current Visit: Yes Status: Chronic Plan: L LEG HE SEES DR. ZAMORA HE WILL FU.
--- NOTE | 2024-12-18 13:50 | P.RH.PN ---
Estimated Length of Stay: 13 Expected Discharge Date: 12/19/24 Discharge Disposition Plan: Home Family Support: Yes Halfway Goal: Mobility, Transfers, Self Care Vital Signs: Last Vital Signs Temp 98.1 F 12/18/24 09:53 Pulse 59 12/18/24 09:53 Resp 16 12/18/24 09:53 BP 95/51 L 12/18/24 09:53 Pulse Ox 97 12/18/24 09:53 Laboratory: Laboratory Last Values WBC 3.70 thou/uL (4.3-10.9) L 12/17/24 06:39 RBC 2.27 M/uL (4.33-5.43) L 12/17/24 06:39 Hgb 8.6 g/dL (13.6-17.9) L 12/17/24 06:39 Hct 24.5 % (39.6-49.0) L 12/17/24 06:39 MCV 108.4 fL (80-100) H 12/17/24 06:39 MCH 37.8 pg (27.0-35.0) H 12/17/24 06:39 MCHC 34.9 g/dL (32.0-36.0) 12/17/24 06:39 RDW 19.0 % (12.1-15.2) H 12/17/24 06:39 Plt Count 108 thou/uL (152-406) L 12/17/24 06:39 MPV 10.1 fL (7.6-11.3) 12/17/24 06:39 Neutrophils % 53.2 % (41.7-73.7) 12/17/24 06:39 Lymphocytes % 33.6 % (15.3-44.8) 12/17/24 06:39 Monocytes % 10.8 % (3.3-12.3) 12/17/24 06:39 Eosinophils % 1.7 % (0-4.4) 12/17/24 06:39 Basophils % 0.7 % (0-1.3) 12/17/24 06:39 Absolute Neutrophils 2.0 K/uL (1.8-8.0) 12/17/24 06:39 Segmented Neutrophils 60 % (40-80) 12/11/24 05:28 Band Neutrophils 4 % (0-1) H 12/11/24 05:28 Absolute Lymphocytes 1.3 K/uL (0.7-4.9) 12/17/24 06:39 Lymphocytes 20 % (15-42) 12/11/24 05:28 Monocytes 14 % (0-10) H 12/11/24 05:28 Absolute Monocytes 0.4 K/uL (0.1-1.3) 12/17/24 06:39 Eosinophils 1 % (0-3) 12/11/24 05:28 Absolute Eosinophils 0.1 K/uL (0-0.5) 12/17/24 06:39 Absolute Basophils 0.0 K/uL (0-0.5) 12/17/24 06:39 Atypical Lymphocytes 1 % 12/11/24 05:28 Platelet Estimate Decr 12/11/24 05:28 Giant Platelets Few 12/11/24 05:28 Macrocytosis 1+ 12/11/24 05:28 Morphology Comment Noted (NOT SEEN) 12/11/24 05:28 Sodium 137 mEq/L (136-145) 12/17/24 06:39 Potassium 3.2 mEq/L (3.5-5.1) L 12/17/24 06:39 Chloride 101 mEq/L (98-107) 12/17/24 06:39 Carbon Dioxide 31 mEq/L (21-32) 12/17/24 06:39 Anion Gap 8.2 mEq/L (5.0-15.0) 12/17/24 06:39 BUN 14 mg/dL (7-18) 12/17/24 06:39 Creatinine 0.80 mg/dL (0.70-1.30) 12/17/24 06:39 Est GFR (CKD-EPI) 91 ml/min (=/>90) 12/17/24 06:39 Glucose 80 mg/dL (74-106) 12/17/24 06:39 Calcium 8.5 mg/dL (8.5-10.1) 12/17/24 06:39 Magnesium 2.1 mg/dL (1.6-2.4) 12/17/24 06:39 Albumin 2.4 g/dL (3.4-5.0) L 12/17/24 06:39 Prealbumin 14.4 mg/dL (20-40) L 12/17/24 06:39 TSH 3.170 uIU/mL (0.358-3.740) 12/13/24 09:25 Urine Color Light-yellow (Yellow) 12/10/24 18:30 Urine Clarity Clear (Clear) 12/10/24 18:30 Urine pH 5.5 (5.0-7.0) 12/10/24 18:30 Ur Specific [place] 1.017 (1.005-1.030) 12/10/24 18:30 Glucose (UA)(Auto) Negative (Negative) 12/10/24 18:30 Urine Ketones Negative (Negative) 12/10/24 18:30 Urine Blood Negative (Negative) 12/10/24 18:30 Urine Nitrite Negative (Negative) 12/10/24 18:30 Urine Bilirubin Negative (Negative) 12/10/24 18:30 Urine Urobilinogen Normal (Normal) 12/10/24 18:30 Ur Leukocyte Esterase Negative Shan/uL (Negative) 12/10/24 18:30 Urine RBC <5 /HPF (None Seen) 12/10/24 18:30 Urine WBC <5 /HPF (<5) 12/10/24 18:30 Urine WBC Clumps Rare /HPF (None Seen) 12/10/24 18:30 Ur Squamous Epith Cells <5 /HPF (None Seen) 12/10/24 18:30 U Non-Squamous Epi Cells <5 /HPF (None Seen) 12/10/24 18:30 Unidentified Crystals Few /HPF (None Seen) 12/10/24 18:30 Urine Bacteria None seen /HPF (<20) 12/10/24 18:30 Urine Mucus Slight /HPF (None Seen) 12/10/24 18:30 Urine Culture Reflexed Not needed 12/10/24 18:30 Urine Total Protein Negative (Negative) 12/10/24 18:30 Weight: 148 lb 12.8 oz Wound Present: Yes Closed Surgical Incision Present: No Negative Pressure Wound Therapy Present: No Physician Update: Labs reviewed and are stable. Low H&H, will start hemocyte plus. Abdominal pain is still mild to moderate. Stage I pressure ulcer on left heel. CGA bed mobility, all transfers, 250' with RW. He had less back pain with patches. Min to independent with ADLs, toileting and footwear. Comment: foam on heels Summary: Patient's care plan and long-term goals have been reviewed and revised as necessary. Please see the Rehabilitation Signature page for all necessary signatures.
--- NOTE | 2024-12-18 17:24 | P.PN ---
Subjective Date of Service: 12/18/24 Chief Complaint: REHAB FOR WEAKNESS. Subjective: Improving HE WENT THROUGH A COMPLICATED HOSPITAL ADMISSION RECENTLY. HE HAS CAD,CHF,CONGESTIVE CARDIOMYOPATHY, PD, POLYCHONDRITIS AND ORTHOSTATIC HYPOTENSION. HE NOW HAS A PRESSURE SORE L HEEL SINCE ADMISSIONS. STABLE I TOLD HIM ABOUT PVD AND HE WILL FU WITH DR. ZAMORA. OFFLOAD THE HEELS. GEN WEAK HE WORKING HARD TO GET HOME. HE WALKED ABOUT 200 FEET. HE IS STABLE AND WILL GO HOME IN AM. Review of Systems 10-point ROS is otherwise unremarkable General: Weakness, As per HPI Physical Examination - Vital Signs Temperature: 98.1 F Blood Pressure: 95/51 Pulse: 59 Respirations: 16 Pulse Ox (%): 97 - Physical Exam General: Cachectic, Mild distress HEENT: Atraumatic, PERRLA, EOMI Neck: Supple, JVD not distended Respiratory: Clear to auscultation bilaterally, Normal air movement Cardiovascular: Regular rate/rhythm, Normal S1 S2 Gastrointestinal: Normal bowel sounds, No tenderness Musculoskeletal: No tenderness Integumentary: No rashes Neurological: Normal speech, Normal tone, Normal affect Lymphatics: No axilla or inguinal lymphadenopathy - Studies Medications List Reviewed: Yes Assessment And Plan - Current Problems (Diagnosis) (1) Acute combined systolic and diastolic heart failure Current Visit: No Status: Chronic Plan: WILL WATCH STABLE ON MEDS TODAY. HE HAS NO SIGNS OF CHF NOW. SP STENT. REDO CXR. (2) CAD (coronary artery disease), [place] coronary artery Current Visit: No Status: Acute (3) Congestive cardiomyopathy Current Visit: No Status: Acute (4) Dysphagia Current Visit: No Status: Acute (5) Orthostatic hypotension Current Visit: No Status: Chronic Plan: REDUCE LASIX IF CAN FLORINEF BY DR. MEZA BUT IT MAY EXACERBATE CHF. WILL AVOID IF WE CAN. (6) Parkinson disease Current Visit: No Status: Chronic Plan: PT CONSULT DYSPHAGIA FU ALSO ST. (7) Stage II pressure ulcer of heel Current Visit: Yes Status: Acute Plan: CHECK PVD HE HAS BEEN TO MANY CARDIOLOGISTS. Qualifiers: Laterality: left Qualified Code(s): L89.622 - Pressure ulcer of left heel, stage 2 (8) PVD (peripheral vascular disease) Current Visit: Yes Status: Chronic Plan: L LEG HE SEES DR. ZAMORA HE WILL FU. TALKED TO . I CALLED HER AT HOME. SHE WILL FU WITH DR. ZAMORA.
[2024-12-19 06:18] VITALS: BP 111/55; TEMP 97.2
--- NOTE | 2024-12-19 13:57 | P.PN ---
Subjective Date of Service: 12/19/24 Chief Complaint: REHAB FOR WEAKNESS. HE WENT THROUGH A COMPLICATED HOSPITAL ADMISSION RECENTLY. HE HAS CAD,CHF,CONGESTIVE CARDIOMYOPATHY, PD, POLYCHONDRITIS AND ORTHOSTATIC HYPOTENSION. HE NOW HAS A PRESSURE SORE L HEEL SINCE ADMISSIONS. MYRNA IS GOING HOME TODAY WITH HOME HEALTH. HE IS AND USES WALKER. I CHECKED HIS MEDS FOR DC AND STOPPED FLORINEF HAS HE HAS CONGESTIVE CARDIOMYOPATHY WITH EF OF 20%. Physical Examination - Vital Signs Temperature: 97.2 F Blood Pressure: 111/55 Pulse: 58 Respirations: 18 Pulse Ox (%): 97 - Studies Medications List Reviewed: Yes Assessment And Plan - Current Problems (Diagnosis) (1) Acute combined systolic and diastolic heart failure Status: Chronic Plan: WILL WATCH STABLE ON MEDS TODAY. HE HAS NO SIGNS OF CHF NOW. SP STENT. REDO CXR. (2) CAD (coronary artery disease), [place] coronary artery Status: Acute (3) Congestive cardiomyopathy Status: Acute (4) Dysphagia Status: Acute (5) Orthostatic hypotension Status: Chronic Plan: REDUCE LASIX IF CAN FLORINEF BY DR. MEZA BUT IT MAY EXACERBATE CHF. WILL AVOID IF WE CAN. (6) Parkinson disease Status: Chronic Plan: PT CONSULT DYSPHAGIA FU ALSO ST. (7) Stage II pressure ulcer of heel Status: Acute Plan: CHECK PVD HE HAS BEEN TO MANY CARDIOLOGISTS. Qualifiers: Laterality: left Qualified Code(s): L89.622 - Pressure ulcer of left heel, stage 2 (8) PVD (peripheral vascular disease) Status: Chronic Plan: L LEG HE SEES DR. ZAMORA HE WILL FU. TALKED TO . I CALLED HER AT HOME. SHE WILL FU WITH DR. ZAMORA.
== END 2024-12-19 10:36 | disposition home health service (06) | DRG 91 ==
LOC: 5TH 17:05
PROVIDERS: ADMIT Psychiatry & Neurology Neurology with Special Qualifications in Child Neurology; ATTEND Psychiatry & Neurology Neurology with Special Qualifications in Child Neurology
DX: G72.89 Other specified myopathies (principal); I21.4 Non-ST elevation (NSTEMI) myocardial infarction; I50.42 Chronic combined systolic (congestive) and diastolic (congestive) heart failure; I42.0 Dilated cardiomyopathy; E27.40 Unspecified adrenocortical insufficiency; R64 Cachexia; E46 Unspecified protein-calorie malnutrition; I11.0 Hypertensive heart disease with heart failure; R13.10 Dysphagia, unspecified; I95.1 Orthostatic hypotension; R53.81 Other malaise; L89.622 Pressure ulcer of left heel, stage 2; I73.9 Peripheral vascular disease, unspecified; I25.10 Atherosclerotic heart disease of native coronary artery without angina pectoris; K59.00 Constipation, unspecified; I49.9 Cardiac arrhythmia, unspecified; G47.00 Insomnia, unspecified; K21.9 Gastro-esophageal reflux disease without esophagitis; E78.5 Hyperlipidemia, unspecified; M94.1 Relapsing polychondritis; K57.30 Diverticulosis of large intestine without perforation or abscess without bleeding; M32.9 Systemic lupus erythematosus, unspecified; M06.9 Rheumatoid arthritis, unspecified; M94.8X9 Other specified disorders of cartilage, unspecified sites; R56.9 Unspecified convulsions; R14.3 Flatulence; E03.9 Hypothyroidism, unspecified; G20.A1 Parkinson's disease without dyskinesia, without mention of fluctuations; I25.2 Old myocardial infarction; Z68.22 Body mass index [BMI] 22.0-22.9, adult; Z87.891 Personal history of nicotine dependence
CPT/HCPCS: 36415; 71045; 71046; 74018; 80048; 81001; 82040; 83735; 84134; 84443; 85025; 87086; 87088; 93926; 94010; 97110; 97116; 97163; 97165; 97530; 97542; J2003; J3420; J7512

== ENCOUNTER 2025-07-13 19:02 | Emergency (ER) | payer OTHER ==
[2025-07-13 19:58] LABS: Absolute Lymphocytes (CBC) 0.8 K/uL (0.7-4.9); Hematocrit 19.4 % (39.6-49.0); Hemoglobin 6.6 g/dL (13.6-17.9); MCH 39.1 pg (27.0-35.0); MCHC 33.9 g/dL (32.0-36.0); MCV 115.4 fL (80-100); MPV 10.8 fL (7.6-11.3); Nucleated RBC Absolute Count 0.0 (0-0); Nucleated Red Blood Cells % 0.0 % (0-0); RBC Red Blood Cell Count 1.68 M/uL (4.33-5.43); White Blood Count 10.20 thou/uL (4.3-10.9)
--- NOTE | 2025-07-13 20:09 | RAD REPORT ---
EXAMINATION: ONE VIEW CHEST XR CLINICAL INDICATION: CHEST PAIN TECHNIQUE: Frontal chest projection is submitted. Examination is limited by patient positioning and t echnique. COMPARISON: 05/13/2025 FINDINGS: Mild interstitial pulmonary edema. Bilateral pleural effusions, small with areas of pleural fluid loc ulation suspected in both fissures. The heart is moderately enlarged in size. No displaced fractures identified. IMPRESSION: Mild/moderate CHF versus volume overload pattern is suspected.
[2025-07-13] MEDS ORDERED: MIDODRINE HCL 5 MG TABLET ONE (20:12)
[2025-07-13] MEDS ORDERED: ONDANSETRON 4 MG/2 ML VIAL ONE (20:12)
[2025-07-13] MEDS ORDERED: ALBUMIN HUMAN 25% 100 ML IV ONE ×2 (20:13→20:34)
--- NOTE | 2025-07-13 20:27 | RAD REPORT ---
EXAM: CT CHEST, ABDOMEN AND PELVIS WITHOUT CONTRAST CLINICAL INDICATION: chest pains TECHNIQUE: CT chest, abdomen and pelvis was performed without contrast, as per department protocol. A xial, sagittal and coronal reconstructions were obtained. One or more of the following dose reduction techniques were used: Automated exposure control, adjustment of the mA and/or kV according to patient size, and/or iterative reconstruction. Unless otherwise specified, incidental findings do not require dedicated imaging follow-up. Examination is limited by the lack of intravenous contrast material. COMPARISON: 05/13/2025 FINDINGS: LUNGS: 14 mm nodular lesion is present in the right lower lobe subpleural location. Mild interstitial pulmonary edema suspected. Irregular 20 mm nodular lesion is present in the left upper lobe laterally. Both of these nodular lesions appear new since the comparison study. Probable 7 mm right l ower lobe granuloma, unchanged. PLEURA: Small bilateral pleural effusions. There is moderate loculated fluid seen in both fissures. MEDIASTINUM AND LYMPH NODES: Mildly enlarged lymph nodes are seen in the mediastinum. Coronary calcif ications. OSSEOUS STRUCTURES AND CHEST WALL: Intact. LIVER: Normal in size and contour. No focal lesion or biliary dilatation. Small gallstones likely pre sent. PANCREAS: No mass, ductal dilation, or shanique-pancreatic fluid. SPLEEN: Normal size. No focal lesion. ADRENALS: Normal; no mass. KIDNEYS: Normal size and contour. No hydronephrosis. URINARY BLADDER: Normal contour. GASTROINTESTINAL TRACT: No bowel obstruction, free air, significant free fluid or abscess. Mild radha ma in the fat surrounding the rectum. Moderate sigmoid diverticulosis coli. APPENDIX: Appendix not visualized, but no inflammatory changes in region of appendix. LYMPH NODES: No lymphadenopathy. MUSCULOSKELETAL: Multiple wedge compression fractures affect the lower lumbar spine, chronic. OTHER: Sclerosis in both femoral heads likely related to AVN. IMPRESSION: New nodular lesions in both lung bases are nonspecific, potentially infectious in etiology. Follow-up CT chest would be recommended in 3 months to ensure resolution. CHF is also likely present with partially loculated bilateral pleural effusions. Heavy coronary calcification. Small gallstones likely present. Mild inflammatory changes in the fat surrounding the rectum can indicate inflammation or proctitis.
[2025-07-13 20:44] LABS: ALT/SGPT 17.0 U/L (16-61); AST/SGOT 39.0 U/L (15-37); Albumin 2.0 g/dL (3.4-5.0); Albumin/Globulin Ratio 0.4 (1.1-1.8); Alkaline Phosphatase 90.0 U/L (45-117); Anion Gap 12.7 mEq/L (5.0-15.0); BUN Blood Urea Nitrogen 50.0 mg/dL (7-18); Bilirubin Indirect, Calculated 0.3 mg/dL (0.2-0.8); Globulin 5.4 g/dL (2.3-3.5); Glucose Level 128.0 mg/dL (74-106); Magnesium 2.7 mg/dL (1.6-2.4); NT PRO-BNP 40499.0 pg/mL (<450); Potassium 3.7 mEq/L (3.5-5.1)
[2025-07-13 20:50] LABS: Troponin High Sensitivity 127.5 pg/mL (<58.9)
[2025-07-13 21:02] LABS: White Blood Cell Scan OK (OK)
[2025-07-13 21:03] LABS: Blood Morphology Comment NOTED (NOT SEEN); Macrocytosis 2+
[2025-07-13 21:10] LABS: Thyroid Stimulating Hormone 9.26 uIU/mL (0.358-3.740)
[2025-07-13 21:46] LABS: PT Prothrombin Time 24.7 SECONDS (10-13.0); PTT, Activated Partial Thromb 34.2 SECONDS (27.2-37.4); Protime INR 2.24
[2025-07-13 22:15] LABS: Sqamous Epithelial None Seen /HPF (None Seen); Urine Culture Reflex Order REFLEXED; Urine Granular Casts 0-5 /LPF (None Seen); Urine Microscopic Reflex YN ORDER UMIC
[2025-07-13] MEDS ORDERED: FUROSEMIDE 40 MG/4 ML VIAL ONE (22:53)
[2025-07-13] MEDS ORDERED: NA CHLORIDE 0.9% 500 ML ONE (22:53)
[2025-07-13] MEDS ORDERED: NA CHLORIDE 0.9% 50 ML ONE (23:40)
[2025-07-13] MEDS ORDERED: CEFTRIAXONE 1000 MG/VIAL ONE (23:40)
--- NOTE | 2025-07-13 23:48 | ER ---
Nurse's Notes [facility] Name: Michael Grant Age: 79 yrs Sex: Male : 1945 Arrival Date: 07/13/2025 Time: 19:02 Bed 27 Private MD: Diagnosis: Anemia, unspecified;Acute symptomatic anemia, acute hematuria, urinary tract infection, systolic congestive heart failure, volume overload, anasarca, elevated troponin, NSTEMI Presentation: 07/13 19:19 Chief complaint: Patient states: shortness of breath times 2 days. More exhausted and vc1 weak. Coronavirus screen: Client denies travel out of the [place] in the last 14 days. At this time, the client does not indicate any symptoms associated with coronavirus-19. Ebola Screen: Patient negative for fever greater than or equal to 101.5 degrees Fahrenheit, and additional compatible Ebola Virus Disease symptoms Patient denies exposure to infectious person. Patient denies travel to an Ebola-affected area in the 21 days before illness onset. No symptoms or risks identified at this time. Initial Sepsis Screen: Does the patient meet any 2 criteria? No. Patient's initial sepsis screen is negative. Does the patient have a suspected source of infection? No. Patient's initial sepsis screen is negative. Risk Assessment: Do you want to hurt yourself or someone else? Patient reports no desire to harm self or others. Onset of symptoms was July 11, 2025. Care prior to arrival: None. 19:19 Method Of Arrival: Wheelchair vc1 19:19 Acuity: LEIF 2 vc1 Triage Assessment: 19:18 General: Appears in no apparent distress. comfortable, Behavior is calm, cooperative, vc1 appropriate for age. Pain: Denies pain. EENT: No deficits noted. No signs and/or symptoms were reported regarding the EENT system. Neuro: Level of Consciousness is awake, alert, obeys commands, Oriented to person, place, time, situation, Appropriate for age. Cardiovascular: Capillary refill < 3 seconds Patient's skin is warm and dry. Respiratory: Reports shortness of breath Airway is patent Respiratory effort is even, unlabored, Respiratory pattern is regular, symmetrical, Onset: The symptoms/episode began/occurred suddenly, the patient has mild shortness of breath. GI: No deficits noted. No signs and/or symptoms were reported involving the gastrointestinal system. : No deficits noted. No signs and/or symptoms were reported regarding the genitourinary system. Derm: Skin is intact, is healthy with good turgor, Skin is dry, Skin is normal, Skin temperature is warm. Musculoskeletal: Circulation, motion, and sensation intact. Range of motion: intact in all extremities. Historical: - Allergies: 19:22 PENICILLINS; vc1 - PMHx: 19:22 Anemia; Thyroid problem; Rheumatoid Arthritis; GERD; Headaches; High Cholesterol; vc1 Myocardial infarction; - PSHx: 19:22 cardiac stents x7; kyphoplasty; vc1 - Immunization history:: Adult Immunizations unknown. - Infectious Disease History:: Denies. - Social history:: Smoking status: Patient/guardian denies using tobacco, but has a distant history of tobacco abuse. - Family history:: not pertinent. Screenin:30 [facility] ED Fall Risk Assessment (Adult) History of falling in the last 3 months, rg5 including since admission No falls in past 3 months (0 pts) Confusion or Disorientation No (0 pts) Intoxicated or Sedated No (0 pts) Impaired Gait Yes (1 pt) Mobility Assist Device Used Yes (1 pt) Altered Elimination No (0 pt) Score/Fall Risk Level 3 or more points = High Risk Oriented to surroundings, Maintained a safe environment. Abuse screen: Denies threats or abuse. Nutritional screening: No deficits noted. Tuberculosis screening: No symptoms or risk factors identified. Assessment: 19:30 General: Appears uncomfortable, Behavior is calm, cooperative, appropriate for age. rg5 19:30 Pain: Denies pain. Neuro: Level of Consciousness is awake, alert, obeys commands, rg5 Oriented to person, place, time, situation. Cardiovascular: Denies chest pain, Patient's skin is warm and dry. Respiratory: Reports shortness of breath Airway is patent Respiratory effort is even, unlabored, Breath sounds are clear. GI: Abdomen is round. : Reports inability to void. EENT: No signs and/or symptoms were reported regarding the EENT system. Derm: Skin is fragile, Skin is dry, Skin is pale, Skin temperature is cool. Musculoskeletal: Circulation, motion, and sensation intact. Range of motion: intact in all extremities. 19:30 Cardiovascular: Rhythm is sinus rhythm. rg5 20:25 Reassessment: Patient and/or family updated on plan of care and expected duration. Pain rg5 level reassessed. Patient is alert, oriented x 3, equal unlabored respirations, skin warm/dry/pink. 21:35 Reassessment: Patient and/or family updated on plan of care and expected duration. Pain rg5 level reassessed. Patient is alert, oriented x 3, equal unlabored respirations, skin warm/dry/pink. Patient states symptoms have improved. 22:26 Reassessment: No changes from previously documented assessment. Patient and/or family rg5 updated on plan of care and expected duration. Pain level reassessed. Patient is alert, oriented x 3, equal unlabored respirations, skin warm/dry/pink. 23:35 Reassessment: Patient and/or family updated on plan of care and expected duration. Pain rg5 level reassessed. Patient is alert, oriented x 3, equal unlabored respirations, skin warm/dry/pink. 07/14 00:48 Reassessment: Patient and/or family updated on plan of care and expected duration. Pain rg5 level reassessed. Patient is alert, oriented x 3, equal unlabored respirations, skin warm/dry/pink. Patient states feeling better. Vital Signs: 07/13 19:19 Pulse 70; Resp 18; Temp 97.2; Pulse Ox 95% ; Weight 68.04 kg; Height 5 ft. 9 in. ; vc1 19:19 BP 85 / 54; vc1 20:37 BP 84 / 61; Pulse 65; Resp 19; Pulse Ox 100% ; rg5 21:00 BP 84 / 61; Pulse 66; Resp 18; Pulse Ox 100% ; rg5 21:15 BP 86 / 61; ts3 21:30 BP 85 / 62; Pulse 67; Resp 18; Pulse Ox 98% ; rg5 22:00 BP 97 / 64; Pulse 71; Resp 17; Pulse Ox 99% ; ts3 22:25 BP 95 / 67; Pulse 71; Resp 16; Pulse Ox 100% ; ts3 23:51 BP 94 / 61; Pulse 69; Resp 18; Pulse Ox 100% on R/A; Pain 0/10; rg5 07/14 00:49 BP 103 / 69; Pulse 71; Resp 18; Pulse Ox 99% ; Pain 0/10; rg5 07/13 19:19 Body Mass Index 22.15 (68.04 kg, 175.26 cm) vc1 23:51 Pain Scale: Adult rg5 07/14 00:49 Pain Scale: Adult rg5 [place] Coma Score: 19:24 Eye Response: spontaneous(4). Verbal Response: oriented(5). Motor Response: obeys sp4 commands(6). Total: 15. ED Course: 07/13 19:09 Patient arrived in ED. im 19:09 Pancho Earl MD is Attending Physician. sp4 19:22 Triage completed. vc1 19:23 Arm band placed on right wrist. vc1 19:30 Patient has correct armband on for positive identification. Bed in low position. Call rg5 light in reach. Side rails up X2. 19:30 No provider procedures requiring assistance completed. Patient maintains SpO2 rg5 saturation greater than 95% on room air. 19:48 XRAY Chest (1 view) In Process Unspecified. EDMS 19:48 Javan Kaiser, MIKE is Primary Nurse. rg5 19:54 Initial lab(s) drawn, by hospital laboratory technician, sent to lab. Inserted saline lock: 20 gauge in right ts3 antecubital area, using aseptic technique. Blood collected. Flushed with 10 mL NS. 20:01 CT Chest Abdomen Pelvis W/O Contrast In Process Unspecified. EDMS 21:45 Inserted saline lock: 22 gauge in left forearm, using aseptic technique. Blood rg5 collected. Flushed with 10 mL NS. 21:58 Type And Screen Sent. rg5 22:02 Notified ED physician of a critical lab result(s). LACTIC ACID 2.4. br2 23:53 Provided Education on: NEEDS FOR TRANSFER. rg5 23:53 Patient transferred, IV remains in place. intact, No redness/swelling at site. rg5 Administered Medications: 20:20 Drug: Ondansetron IVP 4 mg IVP once; over 2 minutes Route: IVP; Site: right antecubital;rg5 21:58 Follow up: Response: No adverse reaction rg5 20:21 Drug: Albumin IVPB 25 grams 100 ml IVPB once; (Note: Albumin 25% concentration) Volume: rg5 100 ml; Route: IVPB; Site: right antecubital; 07/14 00:52 Follow up: IV Status: Completed infusion; IV Intake: 100ml rg5 07/13 20:21 Drug: midodrine 5 mg PO once Route: PO; rg5 07/14 00:52 Follow up: Response: No adverse reaction rg5 07/13 20:37 Drug: Albumin IVPB 25 grams 100 ml IVPB once; (Note: Albumin 25% concentration) Volume: rg5 100 ml; Route: IVPB; Site: right antecubital; 21:00 Follow up: IV Status: Completed infusion; IV Intake: 100ml rg5 23:20 Drug: Furosemide IVP 40 mg IVP once; give over 2 minutes Route: IVP; Site: left forearm;rg5 23:39 Follow up: Response: No adverse reaction rg5 23:30 Drug: Rocephin - Rocephin (cefTRIAXone) IVPB 1 grams IVPB once over 30 mins; (mix in 50 rg5 mL NS) Route: IVPB; Infused Over: 30 mins; Site: left forearm; 23:56 Follow up: IV Status: Completed infusion; IV Intake: 50ml rg5 Medication: 19:30 VIS not applicable for this client. rg5 23:00 Blood products: PRBCs X 1 unit given. See transfusion record. rg5 Intake: 21:00 IV: 100ml; Total: 100ml. rg5 23:56 IV: 50ml; Total: 150ml. rg5 07/14 00:52 IV: 100ml; Total: 250ml. rg5 Outcome: 07/13 23:47 ER care complete, transfer ordered by . sp4 23:54 Condition: stable rg5 23:54 Instructed on the need for admit, 07/14 00:49 Transferred by ground EMS to [facility] 01:06 Patient left the ED. jb4 Signatures: Dispatcher [employer] EDMS Kalin Adair RN RN jb4 Fartun Hoffman RN RN Pancho Hatfield MD MD sp4 Lidia Weston Rommel, RN RN rg5 Joie Gomez RN RN br2 Cheryl Charles ts3 Corrections: (The following items were deleted from the chart) 07/13 22:05 21:58 PACKED RBC LEUKORED+BB.LAB.BRZ drawn and sent. 5 EDMS 22:26 22:00 BP 97 / 64; Pulse 71bpm; Resp 17bpm; Pulse Ox 90%; ts3 ts3 : 21:00 BP 84 / 61; ts3 rg5 : 21:18 BP 85 / 61; ts3 rg5 : 21:30 BP 85 / 62; ts3 rg5 22: 21:57 BP 90 / 62; ts3 rg5
--- NOTE | 2025-07-13 23:48 | EDPHYS ---
Physician Documentation [facility] Name: Myrna Garcia Age: 79 yrs Sex: Male : 1945 Arrival Date: 07/13/2025 Time: 19:02 Bed 27 Private MD: ED Physician Pancho Earl HPI: 07/13 19:09 This 79 yrs old Other Race Male presents to ER via Unassigned with complaints of sp4 Shortness Of Breath. 07/14 19:23 Very pleasant 79-year-old male presents with complaint of acute worsening of dyspnea. sp4 Patient reports dyspnea and generalized swelling for the past several weeks. Today shortness of breath with physical exertion has increased. Very pale on presentation. Denied any bloody stools or other bolus of blood. Had patient's medications at home include esomeprazole, carbidopa levodopa, amoxicillin, mitochondrial energy OTC, prednisone 5 mg daily, methimazole 5 mg daily, clopidogrel 75 mg daily, Tylenol as needed, hydroxychloroquine 200 mg twice a day, atorvastatin 80 mg daily, hydroxychloroquine, montelukast, famotidine, ezetimibe.. Historical: - Allergies: 07/13 19:22 PENICILLINS; vc1 - PMHx: 19:22 Anemia; Thyroid problem; Rheumatoid Arthritis; GERD; Headaches; High Cholesterol; vc1 Myocardial infarction; - PSHx: 19:22 cardiac stents x7; kyphoplasty; vc1 - Immunization history:: Adult Immunizations unknown. - Infectious Disease History:: Denies. - Social history:: Smoking status: Patient/guardian denies using tobacco, but has a distant history of tobacco abuse. - Family history:: not pertinent. ROS: 07/14 19:24 Constitutional: Negative for fever, chills, and weight loss, positive generalized sp4 pallor, positive generalized edema, positive dyspnea on exertion, positive fatigue and generalized weakness All other systems are negative, Exam: 19:24 Constitutional: Patient is a frail elderly male in no significant distress however sp4 ill-appearing. On presentation manifested with hypertension. Generalized weakness ambulates with assistance only. Very dyspneic with minimal physical activity.. Head/Face: Normocephalic, atraumatic. Eyes: Pupils equal round and reactive to light, extra-ocular motions intact. Lids and lashes normal. Conjunctiva and sclera are not injected. Cornea within normal limits. Periorbital areas with no swelling, redness, or edema. ENT: Nares patent. No nasal discharge, no septal abnormalities noted. Tympanic membranes are normal and external auditory canals are clear. Oropharynx with no rednes pale conjunctiva and pale mucous membranes Neck: Trachea midline, no thyromegaly or masses palpated, and no cervical lymphadenopathy. Supple, full range of motion without nuchal rigidity, or vertebral point tenderness. Chest/axilla: Normal chest wall appearance and motion. Nontender with no deformity. No lesions are appreciated. Cardiovascular: Regular rate and rhythm with a normal S1 and S2. No gallops, murmurs, or rubs. Positive for generalized edema with bilateral lower extremity pitting bilateral upper extremity swelling swelling tracking up to the scrotum. Respiratory: Lungs have equal breath sounds bilaterally, clear to auscultation and percussion. No rales, rhonchi or wheezes noted. No increased work of breathing, no retractions or nasal flaring. Abdomen/GI: Soft, with normal bowel sounds. No distension or tympany. No guarding or rebound. No evidence of tenderness throughout. Back: No spinal tenderness. No costovertebral tenderness. Male : Normal genitalia with no discharge or lesions. There is scrotal swelling and edema, digital rectal exam reveals no blood or melena, normal stool color no fistula or fistula Skin: Warm, dry with normal turgor. Normal color with no rashes, no lesions, and no evidence of cellulitis. MS/ Extremity: Pulses equal, no cyanosis. Neurovascular intact. Full, normal range of motion. Bilateral lower extremity edema with pitting. Bilateral generalized pallor Neuro: Awake and alert, GCS 15, oriented to person, place, time, and situation. Cranial nerves II-XII grossly intact. Motor strength 5/5 in all extremities. Sensory grossly intact. Psych: Awake, alert, with orientation to person, place and time. Behavior, mood, and affect are within normal limits 19:42 ECG was reviewed by the Attending Physician. EKG at 2034 sinus rhythm rate 72. sp4 Premature ventricular contractions. Left axis deviation, no ST elevation or depression, Vital Signs: 07/13 19:19 Pulse 70; Resp 18; Temp 97.2; Pulse Ox 95% ; Weight 68.04 kg; Height 5 ft. 9 in. ; vc1 19:19 BP 85 / 54; vc1 20:37 BP 84 / 61; Pulse 65; Resp 19; Pulse Ox 100% ; rg5 21:00 BP 84 / 61; Pulse 66; Resp 18; Pulse Ox 100% ; rg5 21:15 BP 86 / 61; ts3 21:30 BP 85 / 62; Pulse 67; Resp 18; Pulse Ox 98% ; rg5 22:00 BP 97 / 64; Pulse 71; Resp 17; Pulse Ox 99% ; ts3 22:25 BP 95 / 67; Pulse 71; Resp 16; Pulse Ox 100% ; ts3 23:51 BP 94 / 61; Pulse 69; Resp 18; Pulse Ox 100% on R/A; Pain 0/10; rg5 07/14 00:49 BP 103 / 69; Pulse 71; Resp 18; Pulse Ox 99% ; Pain 0/10; rg5 07/13 19:19 Body Mass Index 22.15 (68.04 kg, 175.26 cm) vc1 23:51 Pain Scale: Adult rg5 07/14 00:49 Pain Scale: Adult rg5 [place] Coma Score: 19:24 Eye Response: spontaneous(4). Verbal Response: oriented(5). Motor Response: obeys sp4 commands(6). Total: 15. MDM: 07/13 19:17 Medical Screening Exam initiated sp4 07/14 19:28 Differential diagnosis: asthma, Bronchitis CHF exacerbation, Chronic Obstructive sp4 Pulmonary Disease Myocardial Infarction pneumonia, Psychogenic pulmonary edema, Sepsis. Data reviewed: vital signs, nurses notes, lab test result(s), EKG, radiologic studies, plain films. 19:30 ED course: Additional diagnoses including bilateral pleural effusions, acute proctitis, sp4 and bilateral pulmonary nodules. 19:41 Antibiotic administration: Rocephin IV given for acute UTI . sp4 22:58 ED course: FINDINGS: LUNGS: 14 mm nodular lesion is present in the right lower lobe sp4 subpleural location. Mild interstitial pulmonary edema suspected. Irregular 20 mm nodular lesion is present in the left upper lobe laterally. Both of these nodular lesions appear new since the comparison study. Probable 7 mm right lower lobe granuloma, unchanged. PLEURA: Small bilateral pleural effusions. There is moderate loculated fluid seen in both fissures. MEDIASTINUM AND LYMPH NODES: Mildly enlarged lymph nodes are seen in the mediastinum. Coronary calcifications. OSSEOUS STRUCTURES AND CHEST WALL: Intact. LIVER: Normal in size and contour. No focal lesion or biliary dilatation. Small gallstones likely present. PANCREAS: No mass, ductal dilation, or shanique-pancreatic fluid. SPLEEN: Normal size. No focal lesion. ADRENALS: Normal; no mass. KIDNEYS: Normal size and contour. No hydronephrosis. URINARY BLADDER: Normal contour. RADIOLOGY SERVICES REPORT (Continued) Name: MYRNA GARCIA CC: Avelino Acosta MD; Pancho Earl MD, DAVID LEE / Report: [id number] Radiology Services Report Page 2 of 2 GASTROINTESTINAL TRACT: No bowel obstruction, free air, significant free fluid or abscess. Mild edema in the fat surrounding the rectum. Moderate sigmoid diverticulosis coli. APPENDIX: Appendix not visualized, but no inflammatory changes in region of appendix. LYMPH NODES: No lymphadenopathy. MUSCULOSKELETAL: Multiple wedge compression fractures affect the lower lumbar spine, chronic. OTHER: Sclerosis in both femoral heads likely related to AVN. IMPRESSION: New nodular lesions in both lung bases are nonspecific, potentially infectious in etiology. Follow-up CT chest would be recommended in 3 months to ensure resolution. CHF is also likely present with partially loculated bilateral pleural effusions. Heavy coronary calcification. Small gallstones likely present. Mild inflammatory changes in the fat surrounding the rectum can indicate inflammation or proctitis. 07/13 19:34 Order name: Type And Screen sp4 07/13 19:11 Order name: Basic Metabolic Panel; Complete Time: 21:55 sp4 07/13 19:11 Order name: CBC with Diff; Complete Time: 21:55 sp4 07/13 19:11 Order name: LFT's; Complete Time: 21:55 sp4 07/13 19:11 Order name: Magnesium; Complete Time: 21:55 sp4 07/13 19:11 Order name: NT PRO-BNP; Complete Time: 21:55 sp4 07/13 19:11 Order name: PT-INR; Complete Time: 21:55 sp4 07/13 19:11 Order name: Troponin HS; Complete Time: 21:55 sp4 07/13 19:33 Order name: Lactate w/ 2H reflex if indic.; Complete Time: 22:09 sp4 07/13 19:34 Order name: TSH; Complete Time: 21:55 sp4 07/13 19:34 Order name: T4 Free; Complete Time: 21:55 4 07/13 19:34 Order name: UA Rfx Braxton Cult if indicated; Complete Time: 23:29 4 07/13 20:05 Order name: CBC Smear Scan; Complete Time: 21:55 EDKS 07/13 21:35 Order name: PTT, Activated Partial Thromb; Complete Time: 21:55 EDMS 07/13 21:57 Order name: Type And Screen [facility] 07/13 22:03 Order name: Ghost Lactate-NO COLLECT Timer; Complete Time: 00:37 EDMS 07/13 22:06 Order name: Packed RBC Leukored EDKS 07/13 22:37 Order name: Urine Culture EDKS 07/14 00:55 Order name: Lactate Sepsis 2 HR Follow-up; Complete Time: 19:28 EDKS 07/13 19:11 Order name: XRAY Chest (1 view); Complete Time: 21:55 4 07/13 19:33 Order name: CT Chest Abdomen Pelvis W/O Contrast; Complete Time: 21:55 [facility] 07/13 19:11 Order name: Cardiac monitoring; Complete Time: 20:21 [facility] 07/13 19:11 Order name: EKG - Nurse/Tech; Complete Time: 20:21 [facility] 07/13 19:11 Order name: IV Saline Lock; Complete Time: 19:54 [facility] 07/13 19:11 Order name: Labs collected and sent; Complete Time: 19:54 [facility] 07/13 19:11 Order name: O2 Per Protocol; Complete Time: 20:21 [facility] 07/13 19:11 Order name: O2 Sat Monitoring; Complete Time: 20:21 [facility] 07/13 19:34 Order name: Sanchez; Complete Time: 21:59 [facility] 07/13 20:05 Order name: Misc. Order: RECOLLECT BLUE TOP; Complete Time: 21:45 rv1 EC/28 20:35 Rate is 72 beats/min. Rhythm is regular, Sinus Rhythm with Occasional PVCs. Left axis sp4 deviation noted. DE interval is normal. QRS interval is normal. QT interval is normal. No Q waves. T waves are Normal. No ST changes noted. Clinical impression: No evidence of ischemia. Interpreted by me. Reviewed by me. Administered Medications: 20:20 Drug: Ondansetron IVP 4 mg IVP once; over 2 minutes Route: IVP; Site: right antecubital;rg5 21:58 Follow up: Response: No adverse reaction rg5 20:21 Drug: Albumin IVPB 25 grams 100 ml IVPB once; (Note: Albumin 25% concentration) Volume: rg5 100 ml; Route: IVPB; Site: right antecubital; 07/14 00:52 Follow up: IV Status: Completed infusion; IV Intake: 100ml rg5 07/13 20:21 Drug: midodrine 5 mg PO once Route: PO; rg5 07/14 00:52 Follow up: Response: No adverse reaction rg5 07/13 20:37 Drug: Albumin IVPB 25 grams 100 ml IVPB once; (Note: Albumin 25% concentration) Volume: rg5 100 ml; Route: IVPB; Site: right antecubital; 21:00 Follow up: IV Status: Completed infusion; IV Intake: 100ml rg5 23:20 Drug: Furosemide IVP 40 mg IVP once; give over 2 minutes Route: IVP; Site: left forearm;rg5 23:39 Follow up: Response: No adverse reaction rg5 23:30 Drug: Rocephin - Rocephin (cefTRIAXone) IVPB 1 grams IVPB once over 30 mins; (mix in 50 rg5 mL NS) Route: IVPB; Infused Over: 30 mins; Site: left forearm; 23:56 Follow up: IV Status: Completed infusion; IV Intake: 50ml rg5 Disposition: 23:47 Critical Care:. sp4 07/14 19:30 Chart complete. sp4 Disposition Summary: 07/13/25 23:47 Transfer Ordered Notes: Transfer Location: [facility] sp4 Reason: Higher level of care sp4 Condition: Serious sp4 Problem: new sp4 Symptoms: have improved sp4 Accepting Physician: [facility] Attending Route Driver Salesperson / ED Attending(07/14/25 01:06) [email or web address] Diagnosis - Anemia, unspecified sp4 - Acute symptomatic anemia, acute hematuria, urinary tract infection, systolic sp4 congestive heart failure, volume overload, anasarca, elevated troponin, NSTEMI Forms: - Medication Reconciliation Form sp4 - SBAR form sp4 Critical care time excluding procedures: 07/13 23:47 Critical care time: Bedside Care: 46 minutes, Consultation: 12 minutes, Family sp4 Intervention: 12 minutes. Total time: 70 minutes Signatures: Dispatcher [employer] EDMS Kalin Adair, RN RN jb4 Fartun Hoffman, RN RN vc1 Ekaterina Osei rv1 Pancho Earl MD MD sp4 Javan Kaiser, RN RN rg5 Corrections: (The following items were deleted from the chart) 19:11 19:11 BASIC METABOLIC PANEL+C.LAB.BRZ ordered. EDMS EDMS 19:11 19:11 CBC+H.LAB.BRZ ordered. EDMS EDMS 19:11 19:11 HEPATIC FUNCTION+C.LAB.BRZ ordered. EDMS EDMS 19:11 19:11 MAGNESIUM+C.LAB.BRZ ordered. EDMS EDMS 19:11 19:11 PROBNP+C.LAB.BRZ ordered. EDMS EDMS 19:11 19:11 PROTIME (+INR)+COAG.LAB.BRZ ordered. EDMS EDMS 19:11 19:11 Troponin High Sensitivity+C.LAB.BRZ ordered. EDMS EDMS 19:11 19:11 Chest Single View+RAD.RAD.BRZ ordered. EDMS EDMS 19:33 19:33 LACTATE+C.LAB.BRZ ordered. EDMS EDMS 19:34 19:34 THYROID STIMULAT HORMONE+C.LAB.BRZ ordered. EDMS EDMS 19:34 19:34 T4 FREE+C.LAB.BRZ ordered. EDMS EDMS 19:34 19:34 UA Rfx Braxton Cult if indicated+U.LAB.BRZ ordered. EDMS EDMS 21:35 19:34 PTT, ACTIVATED+COAG.LAB.BRZ ordered. EDMS EDMS 22:05 21:57 PACKED RBC LEUKORED+BB.LAB.BRZ ordered. EDMS EDMS 22:05 21:59 ABO/RH typing ordered. EDMS EDMS 22:05 21:59 Antibody Screen ordered. EDMS EDMS 07/14 01:06 07/13 23:47 [facility] Attending Route Driver Salesperson / ED Attending sp4 [email or web address]
[2025-07-14 06:22] VITALS: TEMP 97.2
[2025-07-14 06:31] VITALS: BP 103/69; O2SAT 99
== END 2025-07-14 01:06 | disposition short-term general hospital (02) ==
LOC: ER 19:02
PROC: 30233N1 Transfusion of Nonautologous Red Blood Cells into Peripheral Vein, Percutaneous Approach (ICD-10-PCS; principal; 2025-07-14)
DX: D64.9 Anemia, unspecified (principal); N39.0 Urinary tract infection, site not specified; R31.9 Hematuria, unspecified; I21.4 Non-ST elevation (NSTEMI) myocardial infarction; I50.20 Unspecified systolic (congestive) heart failure; E87.70 Fluid overload, unspecified; R60.1 Generalized edema; R79.89 Other specified abnormal findings of blood chemistry; E78.00 Pure hypercholesterolemia, unspecified; Z95.818 Presence of other cardiac implants and grafts
CPT/HCPCS: 93005; 87088; 85025; 81001; 87086; 80048; 36415; 86900; 83735; 86850; 85610; 86901; 80076; 83605 ×2; 85730; 86920 ×2; 84443; 84484; 84439; 83880; 71250; 74176; 71045; 36430; 99285; J1938; J2405; P9016; P9047 ×2; J7050; J0696